=== PATIENT | male | born 1940 | race Caucasian/White ===

== ENCOUNTER → 2016-11-09 | Outpatient (CLI) | payer MEDICARE ==
[2016-11-09 12:38] LABS: PROTHROMBIN TIME 21.9 SEC (11.4-15.4)
== END ==
LOC: OD 11:26
PROVIDERS: ATTEND Internal Medicine
DX: I82.409 Acute embolism and thrombosis of unspecified deep veins of unspecified lower extremity (principal); Z79.01 Long term (current) use of anticoagulants
CPT/HCPCS: 36415; 85610

== ENCOUNTER → 2016-11-24 | Outpatient (CLI) | payer MEDICARE ==
[2016-11-24 10:51] LABS: PROTHROMBIN TIME 27.7 SEC (11.4-15.4)
== END ==
LOC: OD 09:33
PROVIDERS: ATTEND Internal Medicine
DX: I82.409 Acute embolism and thrombosis of unspecified deep veins of unspecified lower extremity (principal); Z79.01 Long term (current) use of anticoagulants
CPT/HCPCS: 36415; 85610

== ENCOUNTER → 2016-12-04 | Outpatient (CLI) | payer MEDICARE ==
[2016-12-04 10:54] LABS: PROTHROMBIN TIME 20.7 SEC (11.4-15.4)
[2016-12-04 11:08] LABS: ANION GAP 12 (5-19); BLOOD UREA NITROGEN 32 mg/dL (7-20); CALCIUM 8.6 mg/dL (8.4-10.2); CARBON DIOXIDE 30 mmol/L (22-30); CHLORIDE 103 mmol/L (98-107); CREATININE RESULT 1.54 mg/dL (0.52-1.25); GLUCOSE 107 mg/dL (75-110); SODIUM 145.4 mmol/L (137-145)
== END ==
LOC: OD 09:40
PROVIDERS: ATTEND Internal Medicine
DX: I82.409 Acute embolism and thrombosis of unspecified deep veins of unspecified lower extremity (principal); Z79.01 Long term (current) use of anticoagulants; E87.6 Hypokalemia
CPT/HCPCS: 36415; 80048; 85610

== ENCOUNTER → 2017-01-01 | Outpatient (CLI) | payer MEDICARE ==
[2017-01-01 15:12] LABS: PROTHROMBIN TIME 26.6 SEC (11.4-15.4)
== END ==
LOC: OD 14:28
PROVIDERS: ATTEND Internal Medicine
DX: I82.409 Acute embolism and thrombosis of unspecified deep veins of unspecified lower extremity (principal); Z79.01 Long term (current) use of anticoagulants
CPT/HCPCS: 36415; 85610

== ENCOUNTER → 2017-03-12 | Outpatient (CLI) | payer MEDICARE ==
[2017-03-12 11:39] LABS: PROTHROMBIN TIME 23.6 SEC (11.4-15.4)
== END ==
LOC: OD 10:05
PROVIDERS: ATTEND Internal Medicine
DX: I82.409 Acute embolism and thrombosis of unspecified deep veins of unspecified lower extremity (principal); Z79.01 Long term (current) use of anticoagulants
CPT/HCPCS: 36415; 85610

== ENCOUNTER 2017-04-27 10:29 | Day surgery (SDC) | payer MEDICARE ==
[~2017-04-27 10:29] MED LIST: BUPIVACAINE HCL 0.75% INJ/PF (7.5 MG/1 ML) 10 ML SDV OS PRN; CHONDR SU A NA/HYALUR INTRAOC KIT (SURGICARE) ONE; KETOROLAC TROMETHAMINE 0.45% 4 DROP/0.4 ML DROPERETTE OS PRN; LIDOCAINE 4% INJ/PF (40 MG/ML) 5 ML AMPUL OS PRN; MIDAZOLAM 2 MG/2 ML INJ ONE; PHENYLEPHRINE/KETOROLAC 1%-0.3% 4 ML VIAL ONE
[2017-04-27] MEDS: TROPICAMIDE 1% OPH SOLN 3 ML OS PRN ×3 (10:44→11:08)
[2017-04-27] MEDS: TETRACAINE HCL 0.5% OPH SOLN 0.6 ML DROPERETTE OS PRN ×2 (10:44→11:08)
[2017-04-27] MEDS: BESIFLOXACIN HCL 0.6% OPH SUSP 5 ML BOTTLE OS PRN ×3 (10:45→11:46)
[2017-04-27] MEDS: CYCLOPENTOLATE 0.2%/PHENYLEPHRINE 1% OPH SOLN 2 ML OS PRN ×3 (10:45→11:08)
[2017-04-27] MEDS ORDERED: ALBUTEROL SULFATE 0.083% NEB 2.5 MG/3 ML AMPUL NEB ONE (11:05)
[2017-04-27] MEDS ORDERED: LIDOCAINE 1% INJ-PF (10 MG/ML) 30 ML SDV ONE (11:55)
--- NOTE | 2017-04-27 12:51 | [facility] OPERATIVE REPORT E ---
[facility] Operative Report NAME: TRUONG PINK AGE: 76Y DATE OF SURGERY: 04/27/2017 ROOM: [facility] Operative Report PREOPERATIVE DIAGNOSIS: CATARACT, LEFT EYE. POSTOPERATIVE DIAGNOSIS: CATARACT, LEFT EYE. PROCEDURE PERFORMED: PHACOEMULSIFICATION WITH POSTERIOR CHAMBER INTRAOCULAR LENS, LEFT EYE. SURGEON: CARSON WHITE MD ANESTHESIA: TOPICAL WITH MAC. INDICATIONS FOR SURGERY: Difficulty driving and reading. Best corrected visual acuity, 20/50, with glare to 20/100 PROCEDURE: The patient was brought to the Operating Room and placed on the operative table. Following tetracaine drops, topical anesthesia was administered. This consisted of instrument wipe pledgets soaked in a solution of 4% Xylocaine mixed with 0.75% Marcaine in a 1:2 ratio. A 2 x 1 cm pledget was placed in the superior fornix. A 1 x 1 cm pledget was placed in the inferior fornix. The eye was patched shut for 5 minutes. The patch was removed. The eye was sterilely prepped and draped in the usual manner. Lid speculum was placed in the eye. The pledgets were removed. 4-0 black silk sutures were placed around the superior and the inferior rectus muscles to be used as traction. A conjunctival peritomy was made at the 10 o'clock position. Hemostasis was obtained with bipolar cautery. A posterior limbal groove was created using a crescent knife and dissected anteriorly towards the cornea. A sharp point blade was used to create a paracentesis site at the 2 o'clock position. A 2.4 mm keratome was used to enter the anterior chamber through the groove. Viscoelastic was injected into the anterior chamber. An anterior capsulotomy was performed using Utrata forceps in a capsulorrhexis fashion. Hydrodissection and hydrodelineation were performed. Phacoemulsification was performed in xmkeak-qaf-apwlshs technique. A total of 45 seconds phaco time was used. Following this, the I/A unit was used to remove residual cortex. Viscoelastic was injected into the capsular bag. Intraocular lens model [id number], 20.0 diopters, serial number [id number] was placed in the capsular bag. The I/A unit was used to remove residual viscoelastic. The wound was seen to be watertight under high and low pressure, and no sutures were placed. The intraocular lens was well centered. The pressure was adjusted in the eye to normal pressure. The 4-0 black silk sutures and lid speculum were removed. The eye was shielded after Besivance drops were placed. The patient tolerated the procedure well and was sent to the Recovery Room in good condition. DICTATING PHYSICIAN: CARSON WHITE M.D. [id number] PHY#: [id number] ID: [id number] JOB#: [id number] ACCT: [id number] cc:CARSON WHITE M.D. > MTDD
[2017-04-27] MEDS ORDERED: ALBUTEROL SULFATE 0.083% NEB 2.5 MG/3 ML AMPUL NEB PRN (13:01)
== END 2017-04-27 12:33 | disposition home or self-care (01) ==
LOC: SC 10:29
PROVIDERS: ATTEND Ophthalmology
PROC: 08RK3JZ Replacement of Left Lens with Synthetic Substitute, Percutaneous Approach (ICD-10-PCS; principal; 2017-04-27 11:30)
DX: H25.812 Combined forms of age-related cataract, left eye (principal); H21.81 Floppy iris syndrome; J44.9 Chronic obstructive pulmonary disease, unspecified; K21.9 Gastro-esophageal reflux disease without esophagitis; E11.9 Type 2 diabetes mellitus without complications; Z88.0 Allergy status to penicillin; Z79.82 Long term (current) use of aspirin; Z79.51 Long term (current) use of inhaled steroids; Z79.4 Long term (current) use of insulin; Z95.0 Presence of cardiac pacemaker; Z99.81 Dependence on supplemental oxygen; Z86.14 Personal history of Methicillin resistant Staphylococcus aureus infection
CPT/HCPCS: 66984; 82962; V2632; J2250; J3490 ×4; A9270 ×2; C9447; 142

== ENCOUNTER → 2017-05-05 | Outpatient (CLI) | payer MEDICARE ==
[2017-05-05 14:58] LABS: ANION GAP 10 (5-19); BLOOD UREA NITROGEN 54 mg/dL (7-20); CALCIUM 9.1 mg/dL (8.4-10.2); CARBON DIOXIDE 36 mmol/L (22-30); CHLORIDE 94 mmol/L (98-107); GLUCOSE 200 mg/dL (75-110); POTASSIUM 3.7 mmol/L (3.6-5.0); SODIUM 140.4 mmol/L (137-145)
== END ==
LOC: OD 13:00
PROVIDERS: ATTEND Internal Medicine
DX: N18.9 Chronic kidney disease, unspecified (principal)
CPT/HCPCS: 36415; 80048

== ENCOUNTER 2017-05-18 09:53 | Day surgery (SDC) | payer MEDICARE ==
[~2017-05-18 09:53] MED LIST changes: +BUPIVACAINE HCL 0.75% INJ/PF (7.5 MG/1 ML) 10 ML SDV OD PRN; -BUPIVACAINE HCL 0.75% INJ/PF (7.5 MG/1 ML) 10 ML SDV OS PRN; -CHONDR SU A NA/HYALUR INTRAOC KIT (SURGICARE) ONE; +KETOROLAC TROMETHAMINE 0.45% 4 DROP/0.4 ML DROPERETTE OD PRN; -KETOROLAC TROMETHAMINE 0.45% 4 DROP/0.4 ML DROPERETTE OS PRN; +LIDOCAINE 4% INJ/PF (40 MG/ML) 5 ML AMPUL OD PRN; -LIDOCAINE 4% INJ/PF (40 MG/ML) 5 ML AMPUL OS PRN; -PHENYLEPHRINE/KETOROLAC 1%-0.3% 4 ML VIAL ONE
[2017-05-18] MEDS ORDERED: ALBUTEROL SULFATE 0.083% NEB 2.5 MG/3 ML AMPUL NEB ONE (11:06)
[2017-05-18] MEDS: CYCLOPENTOLATE 0.2%/PHENYLEPHRINE 1% OPH SOLN 2 ML OD PRN ×3 (11:50→12:22)
[2017-05-18] MEDS: TROPICAMIDE 1% OPH SOLN 3 ML OD PRN ×3 (11:50→12:22)
[2017-05-18] MEDS ORDERED: LIDOCAINE 1% INJ-PF (10 MG/ML) 30 ML SDV ONE (11:52)
[2017-05-18] MEDS ORDERED: CHONDR SU A NA/HYALUR INTRAOC KIT (SURGICARE) ONE (11:52)
[2017-05-18] MEDS ORDERED: PHENYLEPHRINE/KETOROLAC 1%-0.3% 4 ML VIAL ONE (11:52)
[2017-05-18] MEDS: BESIFLOXACIN HCL 0.6% OPH SUSP 5 ML BOTTLE OD PRN ×3 (11:55→13:11)
[2017-05-18] MEDS: LIDOCAINE 3.5% OPH GEL/PF 1 ML/TUBE OD PRN ×2 (11:57→12:31)
--- NOTE | 2017-05-18 15:37 | [facility] DISCHARGE SUMMARY E ---
[facility] Discharge Summary NAME: TRUONG PINK AGE: 76Y ADMITTED: 05/18/2017 DISCHARGED: 05/18/2017 HOSPITAL COURSE: The patient is a 76-year-old gentleman who underwent uneventful cataract extraction with intraocular lens implant of the right eye on 05/18/2017. DISPOSITION: He will be discharged to home. DISCHARGE INSTRUCTIONS: He is instructed to resume preoperative medications, take Tylenol as needed for discomfort, to keep his eye shielded. To use Besivance, Durezol, and Ilevro at 3 p.m. and 8 p.m. Follow up in my office in 1 day. DICTATING PHYSICIAN: CARSON WHITE M.D. [id number] PHY#: [id number] ID: [id number] JOB#: [id number] ACCT: [id number] cc:CARSON WHITE M.D. >
--- NOTE | 2017-05-18 15:37 | [facility] OPERATIVE REPORT E ---
[facility] Operative Report NAME: TRUONG PINK AGE: 76Y DATE OF SURGERY: 05/18/2017 ROOM: PREOPERATIVE DIAGNOSIS: CATARACT, RIGHT EYE. POSTOPERATIVE DIAGNOSIS: CATARACT, RIGHT EYE. PROCEDURE; Phacoemulsification with posterior chamber intraocular lens implant, right eye. SURGEON: CARSON WHITE MD ANESTHESIA: Topical with MAC. INDICATIONS FOR SURGERY: Decreased vision with watching TV. Best-corrected visual acuity 20/70. PROCEDURE: The patient was brought to the operating room and placed on the operative table. Following tetracaine drops, topical anesthesia was administered. This consisted of instrument wipe pledgets soaked in a solution of 4% Xylocaine mixed with 0.75% Marcaine in a 1:2 ratio. A 2 x 1 cm pledget was placed in the superior fornix. A 1 x 1 cm pledget was placed in the inferior fornix. The eye was patched shut for 5 minutes. The patch was removed. The eye was sterilely prepped and draped in the usual manner. Lid speculum was placed in the eye. The pledgets were removed. Then 4-0 black silk sutures were placed around the superior and the inferior rectus muscles to be used as traction. A conjunctival peritomy was made at the 10 o'clock position. Hemostasis was attained with bipolar cautery. A posterior limbal groove was created using a crescent knife and dissected anteriorly towards the cornea. A sharp point blade was used to create a paracentesis site at the 2 o'clock position. A 2.4 mm keratome was used to enter the anterior chamber through the groove. Viscoelastic was injected into the anterior chamber. An anterior capsulotomy was performed using Utrata forceps in a capsulorrhexis fashion. Hydrodissection and hydrodelineation were performed. Phacoemulsification was performed in dksysc-tox-qekwfhb technique. A total of 47 seconds phaco time was used. Following this, the I/A unit was used to remove residual cortex. Viscoelastic was injected into the capsular bag. Intraocular lens model [id number], 20.5 diopters, serial number [id number] was placed in the capsular bag. The I/A unit was used to remove residual viscoelastic. The wound was seen to be watertight under high and low pressure, and no sutures were placed. The intraocular lens was well centered. The pressure was adjusted in the eye to normal pressure. The 4-0 black silk sutures and lid speculum were removed. The eye was shielded after Besivance drops were placed. The patient tolerated the procedure well and was sent to the recovery room in good condition. DICTATING PHYSICIAN: CARSON WHITE M.D. [id number] PHY#: [id number] ID: [id number] JOB#: [id number] ACCT: [id number] cc:CARSON WHITE M.D. >
== END 2017-05-18 14:08 | disposition home or self-care (01) ==
LOC: SC 09:53
PROVIDERS: ATTEND Ophthalmology
PROC: 08RJ3JZ Replacement of Right Lens with Synthetic Substitute, Percutaneous Approach (ICD-10-PCS; principal; 2017-05-18 11:15)
DX: H25.811 Combined forms of age-related cataract, right eye (principal); H21.81 Floppy iris syndrome; Z96.1 Presence of intraocular lens; Z98.42 Cataract extraction status, left eye; J44.9 Chronic obstructive pulmonary disease, unspecified; I25.10 Atherosclerotic heart disease of native coronary artery without angina pectoris; E11.9 Type 2 diabetes mellitus without complications; I73.9 Peripheral vascular disease, unspecified; I11.0 Hypertensive heart disease with heart failure; I50.9 Heart failure, unspecified; K21.9 Gastro-esophageal reflux disease without esophagitis; M10.9 Gout, unspecified; Z79.51 Long term (current) use of inhaled steroids; Z79.82 Long term (current) use of aspirin; Z79.4 Long term (current) use of insulin; Z95.0 Presence of cardiac pacemaker; Z88.0 Allergy status to penicillin; Z88.1 Allergy status to other antibiotic agents; Z89.519 Acquired absence of unspecified leg below knee
CPT/HCPCS: 66984; 82962; V2632; J2250; J3490 ×4; A9270 ×3; C9447; 142

== ENCOUNTER → 2017-05-26 | Outpatient (CLI) | payer MEDICARE ==
[2017-05-26 11:26] LABS: PROTHROMBIN TIME 21.2 SEC (11.4-15.4)
== END ==
LOC: OD 10:57
PROVIDERS: ATTEND Internal Medicine
DX: I82.409 Acute embolism and thrombosis of unspecified deep veins of unspecified lower extremity (principal); Z79.01 Long term (current) use of anticoagulants
CPT/HCPCS: 36415; 85610

== ENCOUNTER 2017-06-10 11:06 | Inpatient (IN) | payer OTHER, MEDICARE ==
--- NOTE | 2017-06-10 11:21 | ER Document Report ---
ED General - General Stated Complaint: SHORTNESS OF BREATH Time Seen by Provider: 06/10/17 11:11 Mode of Arrival: Medic Information source: Patient, Emergency Med Personnel, [facility] Records Cannot obtain history due to: Altered mental status Notes: This 76-year-old male patient is brought emergency room by EMS after having onset at home of generalized shaking and breathing difficulty. EMS reports on arrival he was shaking, had a pulse ox of 80% on room air with diffuse wheezing. They gave him 2 albuterol and Atrovent treatments which improved the breathing and the oxygen saturation quite a bit. He has been running in the 93 % range with 2 L nasal cannula. His shaking has improved but is still present. I does gentleman quite well personally and professionally. He does seem to recognize me but is not nearly as wide awake receptive and excited as he usually is when I see him. He does seem to drift off and close his eyes while we are trying to converse. TRAVEL OUTSIDE OF THE [place] 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 Lives with: Family Family History: CAD, COPD - Past Medical History Cardiac Medical History: Reports: Hx Congestive Heart Failure, Hx Coronary Artery Disease, Hx Heart Attack - x6, Hx Hypercholesterolemia, Hx Hypertension, Hx Peripheral Vascular Disease, Hx Pulmonary Embolism, Other - Patient has about a 5 x 5 x 8 cm abdominal aortic aneurysm Pulmonary Medical History: Reports: Hx Bronchitis, Hx COPD, Hx Sleep Apnea - without c-pap EENT Medical History: Reports: None Neurological Medical History: Reports: None Endocrine Medical History: Reports: Hx Diabetes Mellitus Type 2 Renal/ Medical History: Reports: Hx Benign Prostatic Hyperplasia, Hx Kidney Stones GI Medical History: Reports: None Musculoskeltal Medical History: Reports None Psychiatric Medical History: Reports: None Past Surgical History: Reports: Hx Cardiac Catheterization, Hx Coronary Artery Bypass Graft - quadruple, Hx Coronary Stent, Hx Internal Defibrillator, Hx Orthopedic Surgery - Left BKA, Hx Pacemaker - Immunizations Hx Diphtheria, Pertussis, Tetanus Vaccination: Yes - unknown Hx Pneumococcal Vaccination: 07/04/08 Review of Systems - Review of Systems -: Yes ROS unobtainable due to patient's medical condition Physical Exam - Vital signs Vitals: Temp 104.3 F H 06/10/17 11:25 Interpretation: Febrile - General General appearance: Lethargic In distress: Mild - HEENT Head: Normocephalic, Atraumatic Eyes: Other - Seems somewhat glassy eyed Pupils: PERRL - Respiratory Respiratory status: Tachypnea Chest status: Nontender Breath sounds: Other - No wheezes or rales heard at this time - Cardiovascular Rhythm: Regular Heart sounds: Normal auscultation Murmur: No - Abdominal Inspection: Obese Bowel sounds: Normal Tenderness: Nontender - Back Back: Normal - Patient has a horny skin exostosis in the left scapular region - Extremities General upper extremity: Normal inspection General lower extremity: Other - Left BKA. Right lower extremity edema with bandaged wounds. - Neurological Neuro grossly intact: Yes - Psychological Associated symptoms: Other - Patient is somewhat lethargic - Skin Skin Temperature: Hot Skin Moisture: Dry - Abnormally dry given how warm he feels Skin Color: Flushed Course - Re-evaluation Re-evalutation: 06/10/17 14:09 The patient's temperature is now down from 104.5 to about 1-2.5, he is much more alert. He reports he does feel very weak but he does feel better. His initial blood pressure was recorded as 177/74. EMS reported blood pressure of 144 over palpable. His next blood pressure recorded was 84 systolic and at this time it is 79 systolic. We will give him a small saline bolus and see how that does with his blood pressure. 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 - Vital Signs Vital signs: Temp Pulse Resp BP Pulse Ox 104.3 F H 23 H 100/53 L 95 06/10/17 11:25 06/10/17 16:01 06/10/17 16:01 06/10/17 16:01 - Laboratory Result Diagrams: 06/10/17 12:07 06/10/17 12:07 Laboratory results interpreted by me: 06/10/17 06/10/17 06/10/17 11:50 12:07 12:07 RDW 21.0 H Plt Count 72 L Seg Neuts % (Manual) 86 H Lymphocytes % (Manual) 5 L PT VBG HCO3 Carbon Dioxide 33 H BUN 45 H Creatinine 1.62 H Est GFR ( Amer) 50 L Est GFR (Non-Af Amer) 41 L Glucose 262 H Lactic Acid Direct Bilirubin 0.6 H ALT 19 L Creatine Kinase 31 L Albumin 3.4 L Urine Protein 100 H Urine Blood SMALL H 06/10/17 06/10/17 06/10/17 12:07 12:07 12:07 RDW Plt Count Seg Neuts % (Manual) Lymphocytes % (Manual) PT 21.0 H VBG HCO3 34.9 H Carbon Dioxide BUN Creatinine Est GFR ( Amer) Est GFR (Non-Af Amer) Glucose Lactic Acid 2.2 H Direct Bilirubin ALT Creatine Kinase Albumin Urine Protein Urine Blood - Diagnostic Test Radiology reviewed: Image reviewed, Reports reviewed - Borderline cardiomegaly with mild pulmonary vascular congestion and chronic interstitial changes - EKG Interpretation by Me EKG shows normal: Sinus rhythm, Jeffrey, Intervals, ST-T Waves. abnormal: QRS Complexes - Old inferior infarct Rate: Normal - 91 Rhythm: NSR Jeffrey/QRS: IVCD P Waves: LAE - Consults Dr. Mota Time consulted: 14:20 Consulted provider: will come to ER Critical Care Note - Critical Care Note Total time excluding time spent on procedures (mins): 40 Discharge - Discharge Clinical Impression: Hypoxemia Sepsis Qualifiers: Sepsis type: sepsis due to unspecified organism Qualified Code(s): A41.9 - Sepsis, unspecified organism Fever Qualifiers: Fever type: unspecified Qualified Code(s): R50.9 - Fever, unspecified Hypotension Qualifiers: Hypotension type: other hypotension type Qualified Code(s): I95.89 - Other hypotension DM type 2 (diabetes mellitus, type 2) Qualifiers: Diabetes mellitus complication status: with circulatory complication Diabetes mellitus complication detail: with peripheral angiopathy without gangrene Diabetes mellitus longterm insulin use: with longterm use Qualified Code(s): E11.51 - Type 2 diabetes mellitus with diabetic peripheral angiopathy without gangrene; Z79.4 - intermediate (current) use of insulin COPD (chronic obstructive pulmonary disease) Qualifiers: COPD type: COPD with acute exacerbation Qualified Code(s): J44.1 - Chronic obstructive pulmonary disease with (acute) exacerbation Condition: Fair Disposition: ADMITTED INPATIENT Admitting Provider: Hospitalist Unit Admitted: [facility]
[2017-06-10] MEDS ORDERED: ACETAMINOPHEN 650 MG SUPP.RECT PR ONE (11:28)
[2017-06-10 12:22] LABS: VENOUS BLOOD HCO3 34.9 mmol/L (20-32); VENOUS BLOOD PCO2 57.8 mmHg (35-63); VENOUS BLOOD PH 7.4 (7.30-7.42)
[2017-06-10 12:32] LABS: HEMATOCRIT 42.1 % (37.9-51.0); HEMOGLOBIN 13.6 g/dL (13.5-17.0); HGB HCT DIFFERENCE -1.3; MEAN CORPUSCULAR HEMOGLOBIN 29.2 pg (27.0-33.4); MEAN CORPUSCULAR HGB CONC 32.4 g/dL (32.0-36.0); MEAN CORPUSCULAR VOLUME 90 fl (80-97); RED BLOOD COUNT 4.67 10^6/uL (4.35-5.55)
[2017-06-10 12:36] LABS: APPEARANCE,URINE CLEAR; BILIRUBIN,URINE NEGATIVE (NEGATIVE); GLUCOSE, URINE NEGATIVE (NEGATIVE); KETONES,URINE NEGATIVE (NEGATIVE); LEUKOCYTE ESTERASE,URINE NEGATIVE (NEGATIVE); NITRITE,URINE NEGATIVE (NEGATIVE); PROTEIN,URINE 100 mg/dL (NEGATIVE); URINE SPECIFIC GRAVITY 1.008; UROBILINOGEN,URINE NEGATIVE mg/dL (<2.0)
[2017-06-10 12:50] LABS: ANISOCYTOSIS 3+; BASOPHILS % (MANUAL) 0 % (0-2); EOSINOPHILS % (MANUAL) 0 % (0-6); HYPOCHROMASIA SLIGHT; LYMPHOCYTES % (MANUAL) 5 % (13-45); POLYCHROMASIA SLIGHT; STOMATOCYTES 1+; TOTAL CELLS COUNTED 100; TOXIC GRANULATION SLIGHT; TOXIC VACUOLATION PRESENT
[2017-06-10 12:51] LABS: CREATINE KINASE MB 0.59 ng/mL (<4.55)
[2017-06-10 12:55] LABS: TROPONIN I 0.038 ng/mL
--- NOTE | 2017-06-10 13:00 | RADIOLOGY REPORT (SQ) ---
EXAM DESCRIPTION: CHEST SINGLE VIEW COMPLETED DATE/TIME: 06/10/2017 12:38 pm REASON FOR STUDY: bed 9 db COMPARISON: 08/24/2016 EXAM PARAMETERS: NUMBER OF VIEWS: One view. TECHNIQUE: Single frontal radiographic view of the chest acquired. RADIATION DOSE: NA LIMITATIONS: None. FINDINGS: LUNGS AND PLEURA: Chronic interstitial lung changes are present. There is no infiltrate o r effusion. MEDIASTINUM AND HILAR STRUCTURES: No masses. Contour normal. HEART AND VASCULAR STRUCTURES: Borderline heart size. Mild pulmonary vascular congestion. No pulmon catie edema. BONES: No acute findings. HARDWARE: Sternotomy wires, graft markers, pacemaker/ defibrillator. OTHER: No other significant finding. IMPRESSION: Borderline cardiomegaly with pulmonary vascular congestion but no melinda CHF. Chronic deon ng changes. TECHNICAL DOCUMENTATION: JOB ID: [id number]
[2017-06-10 13:51] LABS: ALANINE AMINOTRANSFERASE 19 U/L (21-72); ALBUMIN 3.4 g/dL (3.5-5.0); ALKALINE PHOSPHATASE 124 U/L (38-126); ANION GAP 10 (5-19); ASPARTATE AMINO TRANSFERASE 26 U/L (17-59); BILIRUBIN,DIRECT 0.6 mg/dL (0.0-0.4); BLOOD UREA NITROGEN 45 mg/dL (7-20); CALCIUM 8.9 mg/dL (8.4-10.2); CARBON DIOXIDE 33 mmol/L (22-30); CHLORIDE 100 mmol/L (98-107); CREATINE KINASE 31 U/L (55-170); CREATININE RESULT 1.62 mg/dL (0.52-1.25); GLUCOSE 262 mg/dL (75-110); POTASSIUM 4.3 mmol/L (3.6-5.0); TOTAL PROTEIN 6.3 g/dL (6.3-8.2)
--- NOTE | 2017-06-10 13:51 | EKG REPORT ---
SEVERITY:- ABNORMAL ECG - SINUS RHYTHM PROBABLE LEFT ATRIAL ABNORMALITY NONSPECIFIC INTRAVENTRICULAR CONDUCTION DELAY INFERIOR INFARCT, OLD CONSIDER ANTERIOR INFARCT : Confirmed by: Rosalio Lawrence MD 10-Jun-2017 13:50:47
[2017-06-10] MEDS ORDERED: NORMAL SALINE 1000 ML 250 ML IV ONE (14:00)
[2017-06-10] MEDS ORDERED: CEFTRIAXONE 1 GM/D5W RTU 1 GM/50 ML RTUPB IV ONE (15:00)
[2017-06-10] MEDS ORDERED: ONDANSETRON 4 MG TAB.RAPDIS PO PRN (15:26)
[2017-06-10] MEDS ORDERED: ACETAMINOPHEN 325 MG TABLET PO PRN (15:26)
[2017-06-10] MEDS ORDERED: IMIPENEM/CILASTATIN SODIUM 1,000 MG in NORMAL SALINE 250 ML IV SCH (16:30)
[2017-06-10] MEDS ORDERED: (PENDING PHARMACY ID) (Albuterol Sulfate [Proair Respiclick] 90 MCG) IH PRN (16:34)
[2017-06-10] MEDS ORDERED: BESIFLOXACIN HCL 0.6% OPH SUSP 5 ML BOTTLE OP SCH (16:45)
[2017-06-10] MEDS: OXYCODONE-ACETAMINOPHEN 5-325 MG TABLET PO PRN ×2 (16:47→23:33)
[2017-06-10] MEDS ORDERED: DEXTROSE 40% GEL 15 GM TUBE PO PRN ×2 (16:57)
[2017-06-10] MEDS ORDERED: GLUCAGON,HUMAN RECOMB 1 MG INJ IM PRN (16:57)
[2017-06-10] MEDS ORDERED: DEXTROSE 50%-WATER 25 GM/50 ML DISP.SYRIN IV PRN ×2 (16:57)
--- NOTE | 2017-06-10 17:08 | RADIOLOGY REPORT (SQ) ---
EXAM DESCRIPTION: CT CHEST WITHOUT; CT ABD/PELVIS NO ORAL OR IV COMPLETED DATE/TIME: 06/10/2017 4:25 pm REASON FOR STUDY: FEVER; Fever COMPARISON: None. TECHNIQUE: CT scan of the chest performed without intravenous contrast using helical scanning techni que. Images reviewed with lung, soft tissue and bone windows. Reconstructed coronal and sagittal MPR images reviewed. All images stored on PACS. CT scan of the abdomen and pelvis performed without intravenous contrast and withoutoral contrast usi ng helical scanning technique with dynamic intravenous contrast injection. Images reviewed with lung , soft tissue and bone windows. Reconstructed coronal and sagittal MPR images reviewed. All images stored on PACS. All CT scanners at this facility use dose modulation, iterative reconstruction, and/or weight based d osing when appropriate to reduce radiation dose to as low as reasonably achievable (ALARA). [facility]: Dose Right [facility]: CareDose [facility]: Dose Right [facility]: Teradose 4D [facility]: Smart Technologies RADIATION DOSE: Up-to-date CT equipment and radiation dose reduction techniques were employed. CTDIv ol: 17.6 mGy. DLP: 1304 mGy-cm. mGy. LIMITATIONS: No technical limitations. FINDINGS: CHEST: AXILLAE: No adenopathy. CHEST WALL: No masses. No subcutaneous air. LUNGS: Multiple calcified granulomas are present in the right lung including a 10 mm calcified granul juarez posterior right lower lobe axial image 33, 3 mm calcified granuloma medial right upper lobe image 20, 6 mm calcified granuloma medial right upper lobe image 21, and a 9 mm calcified subpleural granu shantell medial right lower lobe image 14. There is bandlike atelectasis at the left lung base. No fluffy alveolar infiltrates worrisome for edema or pneumonia. PLEURA: Calcified pleural plaques along the left hemidiaphragm with adjacent lung parenchymal scarrin g. No pleural effusions. THYROID: No masses or significant asymmetry. HILAR AND MEDIASTINAL STRUCTURES: No identified masses or abnormal nodes. AORTA AND GREAT VESSELS: No aneurysm. HEART: Moderate cardiomegaly. Heavily calcified [place] coronary arteries with old sternotomy and CAB G. Left-sided dual lead pacemaker. HARDWARE AND LIFELINES: Left-sided dual lead pacemaker BONES: No significant finding. OTHER: No other significant finding. ABDOMEN AND PELVIS: LIVER: Normal size. No masses. No dilated ducts. SPLEEN: Normal size. 1.7 cm splenic cyst. PANCREAS: No masses. No significant calcifications. No adjacent inflammation or peripancreatic flui d collections. Pancreatic duct not dilated. GALLBLADDER: Calcified stones without gallbladder wall thickening or pericholecystic fluid. ADRENAL GLANDS: No significant masses or asymmetry. RIGHT KIDNEY AND URETER: No solid masses. Assessment limited by lack of IV contrast. 5 mm intrarenal nonobstructive midpole and lower pole kidney stones. No hydronephrosis or hydroureter. LEFT KIDNEY AND URETER: No solid masses. Assessment limited by lack of IV contrast. 5 mm left lower pole intrarenal nonobstructive stone. No hydronephrosis or hydroureter. AORTA AND VESSELS: Unruptured 5.5 x 4.9 cm infrarenal abdominal aortic aneurysm (was 4.5 x 4.9 cm in size on 02/04/2011). 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 3 cm diameter on 02/04/2011). Left common iliac artery 3.4 cm aneurysm (was 2.4 cm diameter on 1). RETROPERITONEUM: No retroperitoneal adenopathy, hemorrhage or masses. APPENDIX: Normal. LARGE AND SMALL BOWEL: No dilatation. No masses. No wall thickening. ABDOMINAL WALL: No hernia or masses. PERITONEAL CAVITY: No free air. No free fluid. No peritoneal implants or masses. PELVIS: No mass or free fluid. Ang catheter drains the bladder. BONES: No significant or acute findings. OTHER: No other significant finding. IMPRESSION: No acute infiltrates in the chest. No acute findings in the abdomen or pelvis Unruptured 5.5 x 4.9 cm infrarenal abdominal aortic aneurysm, 2.9 cm right proximal common iliac al ry aneurysm, and 3.4 cm the left proximal common iliac artery aneurysm. TECHNICAL DOCUMENTATION: JOB ID: [id number] Quality ID # [id number]: Final reports with documentation of one or more dose reduction techniques (e.g., Au tomated exposure control, adjustment of the mA and/or kV according to patient size, use of iterative reconstruction technique) 2010 [facility]- All Rights Reserved
[2017-06-10] MEDS: DOCUSATE SODIUM 100 MG CAPSULE PO SCH (17:19)
[2017-06-10] MEDS: INSULIN LISPRO 100 UNIT/ML 3 ML VIAL SUBCUT PRN ×2 (17:20→22:57)
--- NOTE | 2017-06-10 17:23 | PDOC H&P ---
History of Present Illness Admission Date/PCP: 06/10/2017 Patient complains of: Shaking History of Present Illness: TRUONG PINK is a 76 year old male with complaint of shaking. Patient states that he began shaking early this morning. Patient's states that she touched her and felt that he was very hot. states the patient complained of having chills earlier that morning. states that patient's shaking became so severe that he was not able to stand. states that he broke out in a cold sweat during this episode. reports that this occurred about 10 AM today. States that patient has been coughing more than normal. describes cough as being somewhat red in nature patient denies any diarrhea. states that patient normally has high blood pressure. ER called the hospitals office asking for admission during signout the ER physician stated that patient appeared somewhat confused states his temperature was 104.5 patient was given Tylenol and the temperature was 102.5 ER physician also noted the patient was hypotensive. During my encounter with patient patient denied any neck pain any photosensitivity denied any rash. Also denied any sick contacts. Past Medical History Cardiac Medical History: Reports: Congestive Heart Failure, Coronary Artery Disease, Myocardial Infarction - x6, Hyperlipidema, Hypertension, Peripheral Vascular Disease, Pulmonary Embolism, Other - Patient has about a 5 x 5 x 8 cm abdominal aortic aneurysm Denies: Atrial Fibrillation Pulmonary Medical History: Reports: Bronchitis, Chronic Obstructive Pulmonary Disease (COPD), Sleep Apnea - without c-pap Denies: Asthma, Pneumonia, Respiratory Failure, Tuberculosis EENT Medical History: Reports: None Neurological Medical History: Reports: None Denies: Seizures Endocrine Medical History: Reports: Diabetes Mellitus Type 2 Denies: Hyperthyroidism, Hypothyroidism Renal/ Medical History: Denies: End Stage Renal Disease Malignancy Medical History: Denies: Leukemia, Lung Cancer GI Medical History: Reports: None Denies: Hepatitis, Hiatal Hernia Musculoskeltal Medical History: Reports: None Denies: Arthritis, Fibromyalgia Psychiatric Medical History: Reports: None Denies: Dementia, Depression Hematology: Denies: Anemia, Hemophilia, Sickle Cell Disease Infectious Medical History: Denies: HIV Past Surgical History Past Surgical History: Reports: Cardiac Catheterization, Coronary Artery Bypass Graft - quadruple, Coronary Stent, Internal Defibrillator, Orthopedic Surgery - Left BKA, Pacemaker Denies: Appendectomy, Cholecystectomy, Gastric Bypass Surgery, Herniorrhaphy , Tonsillectomy Social History Lives with: Family Smoking Status: Unknown if Ever Smoked Frequency of Alcohol Use: None Hx Recreational Drug Use: No Drugs: None Hx Prescription Drug Abuse: No Family History Family History: CAD, COPD Parental Family History Reviewed: Yes Children Family History Reviewed: Yes Sibling(s) Family History Reviewed.: Yes Medication/Allergy Home Medications: Albuterol Sulfate [Proair Respiclick] 90 mcg IH Q4H PRN 04/20/17 Allopurinol [Zyloprim] 150 mg PO DAILY 04/20/17 Aspirin [Aspirin EC] 81 mg PO DAILY 04/20/17 Atorvastatin Calcium [Lipitor 80 mg Tablet] 80 mg PO QHS 04/20/17 Besifloxacin HCl [Besivance Drops] 1 drop OP ASDIR 04/20/17 Budesonide/Formoterol Fumarate [Symbicort Hfa 160-4.5 Mcg Inhaler 6 gm] 2 puff IH Q12 04/20/17 Bumetanide [Bumex 2 mg Tablet] 1 tab PO BID 04/20/17 Cholecalciferol (Vitamin D3) [Vitamin D3] 400 unit PO DAILY 04/20/17 Cyanocobalamin (Vitamin B-12) [Vitamin B12] 3,000 mcg PO DAILY 04/20/17 Difluprednate [Durezol] 1 drop OP ASDIR 04/20/17 Docusate Sodium [Colace 100 mg Capsule] 100 mg PO BID 04/20/17 Finasteride [Proscar 5 mg Tablet] 5 mg PO DAILY 04/20/17 Hydrocodone/Acetaminophen [Keene 10-325 Tablet] 1 each PO ASDIR PRN 04/20/17 Insulin Glargine,Hum.rec.anlog [Lantus] 10 unit SQ QHS 04/20/17 Isosorbide Mononitrate [Isosorbide Mononitrate ER] 30 mg PO DAILY 04/20/17 Magnesium Oxide 400 mg PO BID 04/20/17 Metolazone 2.5 mg PO .M,W,F 04/20/17 Metoprolol Succinate [Toprol Xl] 50 mg PO DAILY 04/20/17 Nepafenac [Ilevro] 1 drop OP ASDIR 04/20/17 Nitroglycerin [Nitrostat] 0.4 mg SL ASDIR PRN 04/20/17 Omeprazole Magnesium [Prilosec Otc] 20 mg PO QAM 04/20/17 Pregabalin [Lyrica 100 Mg Capsule] 150 mg PO BID 04/20/17 Ranolazine [Ranexa 500 mg Tab.sr] 500 mg PO Q12 05/18/17 Allergies/Adverse Reactions: Penicillins Allergy (Unknown, Verified 05/17/17 10:40) vancomycin [Vancomycin] Adverse Reaction (Verified 08/24/16 13:13) Review of Systems Constitutional: PRESENT: chills, fever(s), weakness Eyes: ABSENT: visual disturbances Ears: ABSENT: hearing changes Nose, Mouth, and Throat: PRESENT: other - Dry mouth Cardiovascular: ABSENT: as per HPI, chest pain, dyspnea on exertion, edema, orthropnea, palpitations, other Respiratory: PRESENT: cough, dyspnea, sputum Gastrointestinal: ABSENT: abdominal pain, constipation, diarrhea, hematemesis, hematochezia, nausea, vomiting Genitourinary: ABSENT: dysuria, hematuria Musculoskeletal: PRESENT: other - left bka pain Integumentary: PRESENT: other - left leg wound with drainage Neurological: PRESENT: tremor(s), weakness Psychiatric: ABSENT: anxiety, depression, homidical ideation, suicidal ideation Endocrine: ABSENT: cold intolerance, heat intolerance, polydipsia, polyuria Hematologic/Lymphatic: ABSENT: easy bleeding, easy bruising Physical Exam Vital Signs: Temp Pulse Resp BP Pulse Ox 104.3 F H 20 96/46 L 95 06/10/17 11:25 06/10/17 15:00 06/10/17 15:00 06/10/17 15:00 Intake & Output 06/09/17 06/10/17 06/11/17 06:59 06:59 06:59 Weight 95.254 kg General appearance: PRESENT: no acute distress, morbidly obese Head exam: PRESENT: atraumatic, normocephalic Eye exam: PRESENT: conjunctiva pink, EOMI, PERRLA. ABSENT: scleral icterus Ear exam: PRESENT: normal external ear exam Mouth exam: PRESENT: moist, tongue midline Neck exam: ABSENT: carotid bruit, JVD, lymphadenopathy, thyromegaly Respiratory exam: PRESENT: rhonchi - + wheezing,, wheezes. ABSENT: rales Cardiovascular exam: PRESENT: RRR, +S1, +S2 Pulses: PRESENT: normal dorsalis pedis pul GI/Abdominal exam: PRESENT: normal bowel sounds, soft. ABSENT: distended, guarding, mass, organolmegaly, rebound, tenderness Rectal exam: PRESENT: deferred Extremities exam: PRESENT: full ROM. ABSENT: calf tenderness - left BKA with prosthetic in place., clubbing, pedal edema Musculoskeletal exam: PRESENT: full ROM, other - left BKA with prosthetic in place Neurological exam: PRESENT: alert, awake, oriented to person, oriented to place , oriented to time, oriented to situation, CN II-XII grossly intact, other - No cervical tenderness, No photophobia. ABSENT: motor sensory deficit Psychiatric exam: PRESENT: appropriate affect, normal mood. ABSENT: homicidal ideation, suicidal ideation Skin exam: PRESENT: dry, warm, other - Right lower ext with + drainage from wound with odor. Results Laboratory Results: 06/10/17 12:07 06/10/17 12:07 06/10/17 06/10/17 06/10/17 11:50 12:07 12:07 WBC 8.0 RBC 4.67 Hgb 13.6 Hct 42.1 MCV 90 MCH 29.2 MCHC 32.4 RDW 21.0 H Plt Count 72 L Seg Neutrophils % Not Reportable Lymphocytes % Not Reportable Monocytes % Not Reportable Eosinophils % Not Reportable Basophils % Not Reportable Absolute Neutrophils Not Reportable Absolute Lymphocytes Not Reportable Absolute Monocytes Not Reportable Absolute Eosinophils Not Reportable Absolute Basophils Not Reportable VBG pH VBG pCO2 VBG HCO3 VBG Base Excess Sodium 143.0 Potassium 4.3 Chloride 100 Carbon Dioxide 33 H Anion Gap 10 BUN 45 H Creatinine 1.62 H Est GFR ( Amer) 50 L Est GFR (Non-Af Amer) 41 L Glucose 262 H Lactic Acid Calcium 8.9 Total Bilirubin 1.0 AST 26 ALT 19 L Alkaline Phosphatase 124 Total Protein 6.3 Albumin 3.4 L Urine Color YELLOW Urine Appearance CLEAR Urine pH 5.0 Ur Specific [place] 1.008 Urine Protein 100 H Urine Glucose (UA) NEGATIVE Urine Ketones NEGATIVE Urine Blood SMALL H Urine Nitrite NEGATIVE Ur Leukocyte Esterase NEGATIVE Urine WBC (Auto) 9 Urine RBC (Auto) 6 06/10/17 06/10/17 12:07 12:07 WBC RBC Hgb Hct MCV MCH MCHC RDW Plt Count Seg Neutrophils % Lymphocytes % Monocytes % Eosinophils % Basophils % Absolute Neutrophils Absolute Lymphocytes Absolute Monocytes Absolute Eosinophils Absolute Basophils VBG pH 7.40 VBG pCO2 57.8 VBG HCO3 34.9 H VBG Base Excess 8.0 Sodium Potassium Chloride Carbon Dioxide Anion Gap BUN Creatinine Est GFR ( Amer) Est GFR (Non-Af Amer) Glucose Lactic Acid 2.2 H Calcium Total Bilirubin AST ALT Alkaline Phosphatase Total Protein Albumin Urine Color Urine Appearance Urine pH Ur Specific [place] Urine Protein Urine Glucose (UA) Urine Ketones Urine Blood Urine Nitrite Ur Leukocyte Esterase Urine WBC (Auto) Urine RBC (Auto) 06/10/17 06/10/17 12:07 12:07 Creatine Kinase 31 L CK-MB (CK-2) 0.59 Troponin I 0.038 Impressions: Chest X-Ray 06/10/17 11:09 IMPRESSION: Borderline cardiomegaly with pulmonary vascular congestion but no melinda CHF. Chronic lung changes. Assessment & Plan - Diagnosis (1) Sepsis Qualifiers: Sepsis type: sepsis due to unspecified organism Qualified Code(s): A41.9 - Sepsis, unspecified organism Is this a current diagnosis for this admission?: Yes Plan: Patient febrile, hypotensive, and altered mental status: We will place patient on imipenem and clindamycin. Concerned that patient's source of infection could possibly be right lower leg wound. Other etiologies would be viral illness. In the meantime will do CT of chest and abdomen without contrast to look for any additional abnormalities. (2) Hypotension Qualifiers: Hypotension type: other hypotension type Qualified Code(s): I95.89 - Other hypotension Is this a current diagnosis for this admission?: Yes Plan: Compared to sepsis: We will hold patient's blood pressure medications. Pt was given IVF in the ER. Will not give additional fluid unless needed. (3) Fever Qualifiers: Fever type: unspecified Qualified Code(s): R50.9 - Fever, unspecified Is this a current diagnosis for this admission?: Yes Plan: Blood cultures, viral studies, wound culture, and urine culture ordered. Viral studies are limited due to facilities order availability. Fever could be secondary to cellulitis versus viral illness. CT of abdomen and chest ordered (4) Cellulitis of right lower extremity Is this a current diagnosis for this admission?: Yes Plan: We will place patient on imipenem and clindamycin. Vancomycin not used due to been reported as an allergy. (5) DM type 2 (diabetes mellitus, type 2) Qualifiers: Diabetes mellitus complication status: with circulatory complication Is this a current diagnosis for this admission?: Yes Plan: Place patient on sliding scale insulin and long-acting insulin 10 units (6) Chronic diastolic heart failure Is this a current diagnosis for this admission?: Yes Plan: We will monitor patient closely. Patient's chest x-ray demonstrating cardiomegaly with vascular congestion. Due to patient being septic with low blood pressure will try holding off on diuresing patient. (7) Chronic kidney disease, stage 3 Plan: We will monitor renal function closely (8) Acute respiratory failure with hypoxia Is this a current diagnosis for this admission?: Yes Plan: Secondary to mild COPD exacerbation and sepsis: Patient given breathing treatments in the emergency room. We will continue with breathing treatments as needed. (9) COPD (chronic obstructive pulmonary disease) Qualifiers: COPD type: COPD with acute exacerbation Qualified Code(s): J44.1 - Chronic obstructive pulmonary disease with (acute) exacerbation Is this a current diagnosis for this admission?: Yes Plan: Mild COPD exacerbation: We will continue breathing treatment. (10) Hypoxemia Is this a current diagnosis for this admission?: Yes Plan: We will continue nasal cannula (11) History of pulmonary embolus (PE) Is this a current diagnosis for this admission?: Yes Plan: We will place patient on Lovenox due to subtherapeutic INR. Will restart patient's warfarin (12) Hyperlipidemia Qualifiers: Hyperlipidemia type: unspecified Qualified Code(s): E78.5 - Hyperlipidemia , unspecified Is this a current diagnosis for this admission?: Yes Plan: Continue statin (13) Subtherapeutic anticoagulation Is this a current diagnosis for this admission?: Yes Plan: We will place patient on Lovenox and resume patient's warfarin at 3 mg p.o. daily - Time Time Spent: 30 to 50 Minutes
[2017-06-10] MEDS: IMIPENEM/CILASTATIN SODIUM 500 MG in NORMAL SALINE 100 ML IV SCH (17:44)
[2017-06-10] MEDS: MORPHINE SULFATE 10 MG/ML INJ IV PRN (22:22)
[2017-06-10] MEDS: BUDESONIDE/FORMOTEROL 160-4.5 MCG 60 PUFF/6 GM MDI IH SCH (22:57)
[2017-06-10] MEDS: ATORVASTATIN CALCIUM 80 MG TABLET PO SCH (22:57)
[2017-06-10] MEDS: WARFARIN SODIUM 3 MG TABLET PO SCH (22:58)
[2017-06-10] MEDS: PREGABALIN 75 MG CAPSULE PO SCH (22:58)
[2017-06-11] MEDS: IMIPENEM/CILASTATIN SODIUM 500 MG in NORMAL SALINE 100 ML IV SCH ×4 (00:15→18:00)
[2017-06-11 05:32] LABS: PROTHROMBIN TIME 20.2 SEC (11.4-15.4)
[2017-06-11 05:45] LABS: ALANINE AMINOTRANSFERASE 24 U/L (21-72); ALBUMIN 2.9 g/dL (3.5-5.0); ALKALINE PHOSPHATASE 95 U/L (38-126); ANION GAP 8 (5-19); ASPARTATE AMINO TRANSFERASE 22 U/L (17-59); BILIRUBIN,DIRECT 0.5 mg/dL (0.0-0.4); BILIRUBIN,TOTAL 0.8 mg/dL (0.2-1.3); BLOOD UREA NITROGEN 49 mg/dL (7-20); CALCIUM 8.3 mg/dL (8.4-10.2); CARBON DIOXIDE 32 mmol/L (22-30); CHLORIDE 98 mmol/L (98-107); CREATININE RESULT 1.88 mg/dL (0.52-1.25); GLUCOSE 133 mg/dL (75-110); POTASSIUM 3.7 mmol/L (3.6-5.0); SODIUM 137.8 mmol/L (137-145); TOTAL PROTEIN 5.6 g/dL (6.3-8.2)
[2017-06-11 06:03] LABS: HEMATOCRIT 37.9 % (37.9-51.0); HEMOGLOBIN 12.3 g/dL (13.5-17.0); MEAN CORPUSCULAR HEMOGLOBIN 29.2 pg (27.0-33.4); MEAN CORPUSCULAR HGB CONC 32.5 g/dL (32.0-36.0); MEAN CORPUSCULAR VOLUME 90 fl (80-97); RED BLOOD COUNT 4.23 10^6/uL (4.35-5.55); RED CELL DISTRIBUTION WIDTH 20.5 % (11.5-14.0)
[2017-06-11 06:09] LABS: BASOPHILS % (MANUAL) 0 % (0-2); EOSINOPHILS % (MANUAL) 0 % (0-6); LYMPHOCYTES % (MANUAL) 2 % (13-45); TOTAL CELLS COUNTED 100
[2017-06-11 06:12] LABS: ANISOCYTOSIS 2+; HYPOCHROMASIA SLIGHT; OVALOCYTES SLIGHT; POIKILOCYTOSIS SLIGHT; POLYCHROMASIA SLIGHT; TOXIC GRANULATION SLIGHT
[2017-06-11] MEDS: OXYCODONE-ACETAMINOPHEN 5-325 MG TABLET PO PRN ×3 (06:33→23:16)
[2017-06-11] MEDS: INSULIN LISPRO 100 UNIT/ML 3 ML VIAL SUBCUT PRN ×3 (07:46→18:01)
[2017-06-11] MEDS: IPRATROPIUM/ALBUTEROL 0.5-2.5 MG/3 ML AMPUL NEB PRN (09:02)
[2017-06-11] MEDS: METOPROLOL SUCCINATE 50 MG TAB.SR.24H PO SCH (09:49)
[2017-06-11] MEDS: PREGABALIN 75 MG CAPSULE PO SCH ×2 (09:49→22:58)
[2017-06-11] MEDS: FINASTERIDE 5 MG TABLET PO SCH (09:49)
[2017-06-11] MEDS: DOCUSATE SODIUM 100 MG CAPSULE PO SCH ×2 (09:49→18:00)
[2017-06-11] MEDS: ALLOPURINOL 300 MG TABLET PO SCH (09:50)
[2017-06-11] MEDS: BUDESONIDE/FORMOTEROL 160-4.5 MCG 60 PUFF/6 GM MDI IH SCH ×2 (09:50→22:57)
[2017-06-11] MEDS ORDERED: INSULIN GLARGINE,HUM.REC.ANLOG 300 UNIT/3 ML INSULN.PEN SUBCUT SCH (10:00)
[2017-06-11] MEDS ORDERED: ENOXAPARIN SODIUM INJ 40 MG/0.4 ML DISP.SYRIN SUBCUT SCH (10:00)
[2017-06-11] MEDS: POLYETHYLENE GLYCOL 3350 POWDER 17 GM/1 PACKET PO SCH (10:01)
[2017-06-11] MEDS: MORPHINE SULFATE 10 MG/ML INJ IV PRN (13:51)
[2017-06-11] MEDS: CLINDAMYCIN 600 MG/D5W RTU 600 MG/50 ML RTUPB IV SCH ×2 (13:51→22:57)
--- NOTE | 2017-06-11 13:57 | PDOC PROGRESS REPORT ---
Subjective Progress Note for:: 06/11/17 Subjective:: Pt states that he feel much better today. Pt states that he is not shaking as much. Micro called this morning to report that pt has GBS in blood culture. Physical Exam Vital Signs: Temp Pulse Resp BP Pulse Ox 98.2 F 60 18 124/49 L 95 06/11/17 11:13 06/11/17 11:13 06/11/17 11:13 06/11/17 11:13 06/11/17 11:13 Intake & Output 06/10/17 06/11/17 06/12/17 06:59 06:59 06:59 Intake Total 265 Output Total 350 Balance -85 Weight 100.4 kg General appearance: PRESENT: no acute distress, well-developed, well-nourished Head exam: PRESENT: atraumatic, normocephalic Eye exam: PRESENT: conjunctival injection Ear exam: PRESENT: bleeding Mouth exam: PRESENT: moist, tongue midline Neck exam: ABSENT: carotid bruit, JVD, lymphadenopathy, thyromegaly Respiratory exam: PRESENT: clear to auscultation dipti. ABSENT: rales, rhonchi, wheezes Cardiovascular exam: PRESENT: RRR. ABSENT: diastolic murmur, rubs, systolic murmur Pulses: PRESENT: normal dorsalis pedis pul Vascular exam: PRESENT: normal capillary refill GI/Abdominal exam: PRESENT: normal bowel sounds, soft. ABSENT: distended, guarding, mass, organolmegaly, rebound, tenderness Rectal exam: PRESENT: deferred Extremities exam: PRESENT: full ROM. ABSENT: calf tenderness, clubbing, pedal edema Neurological exam: PRESENT: alert, awake, oriented to person, oriented to place , oriented to time, oriented to situation, CN II-XII grossly intact. ABSENT: motor sensory deficit Psychiatric exam: PRESENT: appropriate affect, normal mood. ABSENT: homicidal ideation, suicidal ideation Skin exam: PRESENT: other - +left BKA, + right lower leg wound with dressing in place. Results Laboratory Results: 06/11/17 04:53 06/11/17 04:53 06/10/17 06/10/17 06/11/17 16:42 16:42 04:53 WBC 7.0 RBC 4.23 L Hgb 12.3 L Hct 37.9 MCV 90 MCH 29.2 MCHC 32.5 RDW 20.5 H Plt Count 52 L Seg Neutrophils % Not Reportable Lymphocytes % Not Reportable Monocytes % Not Reportable Eosinophils % Not Reportable Basophils % Not Reportable Absolute Neutrophils Not Reportable Absolute Lymphocytes Not Reportable Absolute Monocytes Not Reportable Absolute Eosinophils Not Reportable Absolute Basophils Not Reportable Sodium Potassium Chloride Carbon Dioxide Anion Gap BUN Creatinine Est GFR ( Amer) Est GFR (Non-Af Amer) Glucose Lactic Acid 2.8 H Calcium Total Bilirubin AST ALT Alkaline Phosphatase C-Reactive Protein 38.5 H Total Protein Albumin 06/11/17 04:53 WBC RBC Hgb Hct MCV MCH MCHC RDW Plt Count Seg Neutrophils % Lymphocytes % Monocytes % Eosinophils % Basophils % Absolute Neutrophils Absolute Lymphocytes Absolute Monocytes Absolute Eosinophils Absolute Basophils Sodium 137.8 Potassium 3.7 Chloride 98 Carbon Dioxide 32 H Anion Gap 8 BUN 49 H Creatinine 1.88 H Est GFR ( Amer) 42 L Est GFR (Non-Af Amer) 35 L Glucose 133 H Lactic Acid Calcium 8.3 L Total Bilirubin 0.8 AST 22 ALT 24 Alkaline Phosphatase 95 C-Reactive Protein Total Protein 5.6 L Albumin 2.9 L Impressions: Abdomen/Pelvis CT 06/10/17 00:00 IMPRESSION: No acute infiltrates in the chest. No acute findings in the abdomen or pelvis Unruptured 5.5 x 4.9 cm infrarenal abdominal aortic aneurysm, 2.9 cm right proximal common iliac artery aneurysm, and 3.4 cm the left proximal common iliac artery aneurysm. Chest CT 06/10/17 00:00 IMPRESSION: No acute infiltrates in the chest. No acute findings in the abdomen or pelvis Unruptured 5.5 x 4.9 cm infrarenal abdominal aortic aneurysm, 2.9 cm right proximal common iliac artery aneurysm, and 3.4 cm the left proximal common iliac artery aneurysm. Chest X-Ray 06/10/17 11:09 IMPRESSION: Borderline cardiomegaly with pulmonary vascular congestion but no melinda CHF. Chronic lung changes. 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 Will remove rodriguez. (2) Hypotension Qualifiers: Hypotension type: other hypotension type Qualified Code(s): I95.89 - Other hypotension Is this a current diagnosis for this admission?: Yes Plan: Secondary to sepsis: We will hold patient's blood pressure medications. Will not give additional fluid unless needed. (3) Fever Qualifiers: Fever type: unspecified Qualified Code(s): R50.9 - Fever, unspecified Is this a current diagnosis for this admission?: Yes Plan: Secondary to GBS: Will continue current antibiotics. (4) Cellulitis of right lower extremity Is this a current diagnosis for this admission?: Yes Plan: Will continue imipenem and clindamycin. Vancomycin not used due to been reported as an allergy. (5) DM type 2 (diabetes mellitus, type 2) Qualifiers: Diabetes mellitus complication status: with circulatory complication Diabetes mellitus complication detail: with peripheral angiopathy without gangrene Diabetes mellitus intermediate frame tender insulin use: with intermediate frame tender use Qualified Code(s): E11.51 - Type 2 diabetes mellitus with diabetic peripheral angiopathy without gangrene; Z79.4 - intermission coordinator (current) use of insulin Is this a current diagnosis for this admission?: Yes Plan: Place patient on sliding scale insulin and long-acting insulin 10 units (6) Thrombocytopenia Is this a current diagnosis for this admission?: Yes Plan: Lovenox discontinued. Will monitor. (7) Chronic diastolic heart failure Is this a current diagnosis for this admission?: Yes Plan: We will monitor patient closely. Patient's chest x-ray demonstrating cardiomegaly with vascular congestion. Due to patient being septic with low blood pressure will try holding off on diuresing patient. (8) Chronic kidney disease, stage 3 Is this a current diagnosis for this admission?: Yes Plan: We will monitor renal function closely (9) Acute respiratory failure with hypoxia Is this a current diagnosis for this admission?: Yes Plan: Secondary to mild COPD exacerbation and sepsis: We will continue with breathing treatments as needed. (10) COPD (chronic obstructive pulmonary disease) Qualifiers: COPD type: COPD with acute exacerbation Qualified Code(s): J44.1 - Chronic obstructive pulmonary disease with (acute) exacerbation Is this a current diagnosis for this admission?: Yes Plan: Mild COPD exacerbation: We will continue breathing treatment. (11) Constipation Qualifiers: Constipation type: unspecified constipation type Qualified Code(s): K59.00 - Constipation, unspecified Is this a current diagnosis for this admission?: Yes Plan: Will place pt on Miralax. (12) Hypoxemia Is this a current diagnosis for this admission?: Yes Plan: We will continue nasal cannula (13) History of pulmonary embolus (PE) Is this a current diagnosis for this admission?: Yes Plan: Will continue warfarin (14) Hyperlipidemia Qualifiers: Hyperlipidemia type: unspecified Qualified Code(s): E78.5 - Hyperlipidemia , unspecified Is this a current diagnosis for this admission?: Yes Plan: Continue statin (15) Subtherapeutic anticoagulation Is this a current diagnosis for this admission?: Yes Plan: Will continue Coumadin. - Time Time Spent with patient: 25-34 minutes
[2017-06-11] MEDS: WARFARIN SODIUM 3 MG TABLET PO SCH (22:58)
[2017-06-11] MEDS: INSULIN GLARGINE,HUM.REC.ANLOG 300 UNIT/3 ML INSULN.PEN SUBCUT SCH (22:58)
[2017-06-11] MEDS: ATORVASTATIN CALCIUM 80 MG TABLET PO SCH (22:58)
[2017-06-12] MEDS: IMIPENEM/CILASTATIN SODIUM 500 MG in NORMAL SALINE 100 ML IV SCH ×5 (00:18→23:08)
[2017-06-12] MEDS: CLINDAMYCIN 600 MG/D5W RTU 600 MG/50 ML RTUPB IV SCH (05:51)
[2017-06-12 06:09] LABS: HEMATOCRIT 38.6 % (37.9-51.0); HEMOGLOBIN 12.9 g/dL (13.5-17.0); HGB HCT DIFFERENCE 0.1; MEAN CORPUSCULAR HEMOGLOBIN 29.8 pg (27.0-33.4); MEAN CORPUSCULAR HGB CONC 33.4 g/dL (32.0-36.0); MEAN CORPUSCULAR VOLUME 89 fl (80-97); RED BLOOD COUNT 4.33 10^6/uL (4.35-5.55); RED CELL DISTRIBUTION WIDTH 20.8 % (11.5-14.0); WHITE BLOOD COUNT 4.2 10^3/uL (4.0-10.5)
[2017-06-12 06:14] LABS: ANION GAP 8 (5-19); BLOOD UREA NITROGEN 40 mg/dL (7-20); CALCIUM 8.5 mg/dL (8.4-10.2); CARBON DIOXIDE 29 mmol/L (22-30); CHLORIDE 103 mmol/L (98-107); CREATININE RESULT 1.45 mg/dL (0.52-1.25); GLUCOSE 195 mg/dL (75-110); POTASSIUM 3.9 mmol/L (3.6-5.0)
[2017-06-12 06:28] LABS: BASOPHILS % (MANUAL) 0 % (0-2); EOSINOPHILS % (MANUAL) 1 % (0-6); LYMPHOCYTES % (MANUAL) 16 % (13-45); TOTAL CELLS COUNTED 100
[2017-06-12 06:30] LABS: ANISOCYTOSIS 2+; POLYCHROMASIA SLIGHT; TOXIC GRANULATION SLIGHT
[2017-06-12] MEDS: OXYCODONE-ACETAMINOPHEN 5-325 MG TABLET PO PRN ×3 (07:09→22:18)
[2017-06-12] MEDS ORDERED: WARFARIN SODIUM 3 MG TABLET PO SCH (07:24)
[2017-06-12] MEDS: INSULIN LISPRO 100 UNIT/ML 3 ML VIAL SUBCUT PRN (08:17)
[2017-06-12] MEDS: IPRATROPIUM/ALBUTEROL 0.5-2.5 MG/3 ML AMPUL NEB PRN (08:45)
[2017-06-12] MEDS: POLYETHYLENE GLYCOL 3350 POWDER 17 GM/1 PACKET PO SCH (09:42)
[2017-06-12] MEDS: ALLOPURINOL 300 MG TABLET PO SCH (09:43)
[2017-06-12] MEDS: METOPROLOL SUCCINATE 50 MG TAB.SR.24H PO SCH (09:44)
[2017-06-12] MEDS: PREGABALIN 75 MG CAPSULE PO SCH ×2 (09:44→22:17)
[2017-06-12] MEDS: FINASTERIDE 5 MG TABLET PO SCH (09:45)
[2017-06-12] MEDS: DOCUSATE SODIUM 100 MG CAPSULE PO SCH ×2 (09:46→18:33)
[2017-06-12] MEDS: BUDESONIDE/FORMOTEROL 160-4.5 MCG 60 PUFF/6 GM MDI IH SCH ×2 (09:55→22:17)
--- NOTE | 2017-06-12 10:51 | PDOC PROGRESS REPORT ---
Subjective Progress Note for:: 06/12/17 Subjective:: Pt states that he is feeling much better. Pt states that he has not have any shaking episodes. Physical Exam Vital Signs: Temp Pulse Resp BP Pulse Ox 98.3 F 63 16 126/55 H 95 06/12/17 07:36 06/12/17 07:36 06/12/17 07:36 06/12/17 07:36 06/12/17 07:36 Intake & Output 06/11/17 06/12/17 06/13/17 06:59 06:59 06:59 Intake Total 265 1200 Output Total 350 2650 Balance -85 -1450 Weight 100.4 kg 97.5 kg General appearance: PRESENT: no acute distress, well-developed, well-nourished Head exam: PRESENT: atraumatic, normocephalic Eye exam: PRESENT: conjunctiva pink, EOMI. ABSENT: scleral icterus Ear exam: PRESENT: normal external ear exam Mouth exam: PRESENT: moist, tongue midline Neck exam: ABSENT: carotid bruit, JVD, lymphadenopathy, thyromegaly Respiratory exam: PRESENT: clear to auscultation dipti. ABSENT: rales, rhonchi, wheezes Cardiovascular exam: PRESENT: RRR. ABSENT: diastolic murmur, rubs, systolic murmur Pulses: PRESENT: normal dorsalis pedis pul Vascular exam: PRESENT: normal capillary refill GI/Abdominal exam: PRESENT: normal bowel sounds, soft. ABSENT: distended, guarding, mass, organolmegaly, rebound, tenderness Rectal exam: PRESENT: deferred Extremities exam: PRESENT: full ROM. ABSENT: calf tenderness, clubbing, pedal edema Neurological exam: PRESENT: alert, awake, oriented to person, oriented to place , oriented to time, oriented to situation, CN II-XII grossly intact. ABSENT: motor sensory deficit Psychiatric exam: PRESENT: appropriate affect, normal mood. ABSENT: homicidal ideation, suicidal ideation Skin exam: PRESENT: other - + right lower leg wound dry no drainage noted. Results Laboratory Results: 06/12/17 04:50 06/12/17 04:50 06/12/17 06/12/17 04:50 04:50 WBC 4.2 RBC 4.33 L Hgb 12.9 L Hct 38.6 MCV 89 MCH 29.8 MCHC 33.4 RDW 20.8 H Plt Count 50 L Seg Neutrophils % Not Reportable Lymphocytes % Not Reportable Monocytes % Not Reportable Eosinophils % Not Reportable Basophils % Not Reportable Absolute Neutrophils Not Reportable Absolute Lymphocytes Not Reportable Absolute Monocytes Not Reportable Absolute Eosinophils Not Reportable Absolute Basophils Not Reportable Sodium 140.0 Potassium 3.9 Chloride 103 Carbon Dioxide 29 Anion Gap 8 BUN 40 H Creatinine 1.45 H Est GFR ( Amer) 57 L Est GFR (Non-Af Amer) 47 L Glucose 195 H Calcium 8.5 06/10/17 17:45 Nasophary (Mrsa Only) MRSA Surveillance Culture - Final MRSA RECOVERED Impressions: Abdomen/Pelvis CT 06/10/17 00:00 IMPRESSION: No acute infiltrates in the chest. No acute findings in the abdomen or pelvis Unruptured 5.5 x 4.9 cm infrarenal abdominal aortic aneurysm, 2.9 cm right proximal common iliac artery aneurysm, and 3.4 cm the left proximal common iliac artery aneurysm. Chest CT 06/10/17 00:00 IMPRESSION: No acute infiltrates in the chest. No acute findings in the abdomen or pelvis Unruptured 5.5 x 4.9 cm infrarenal abdominal aortic aneurysm, 2.9 cm right proximal common iliac artery aneurysm, and 3.4 cm the left proximal common iliac artery aneurysm. Chest X-Ray 06/10/17 11:09 IMPRESSION: Borderline cardiomegaly with pulmonary vascular congestion but no melinda CHF. Chronic lung changes. 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 Wound culture pending. (2) Hypotension Qualifiers: Hypotension type: other hypotension type Qualified Code(s): I95.89 - Other hypotension Is this a current diagnosis for this admission?: Yes Plan: Secondary to sepsis: We will hold patient's blood pressure medications. Will not give additional fluid unless needed. Blood pressure improving. (3) Fever Qualifiers: Fever type: unspecified Qualified Code(s): R50.9 - Fever, unspecified Is this a current diagnosis for this admission?: Yes Plan: Secondary to GBS: Will continue current antibiotics. Pt has been afebrile for greater than 36 hours. (4) Cellulitis of right lower extremity Is this a current diagnosis for this admission?: Yes Plan: Wound culture pending. Will continue imipenem and clindamycin. Vancomycin not used due to been reported as an allergy. 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 Will add meal time insulin. (6) Thrombocytopenia Is this a current diagnosis for this admission?: Yes Plan: Lovenox discontinued. Will monitor. (7) Chronic diastolic heart failure Is this a current diagnosis for this admission?: Yes Plan: We will monitor patient closely. Patient's chest x-ray demonstrating cardiomegaly with vascular congestion. Due to patient being septic with low blood pressure will try holding off on diuresing patient. (8) Chronic kidney disease, stage 3 Is this a current diagnosis for this admission?: Yes Plan: We will monitor renal function closely (9) Acute respiratory failure with hypoxia Is this a current diagnosis for this admission?: Yes Plan: Secondary to mild COPD exacerbation and sepsis: We will continue with breathing treatments as needed. (10) COPD (chronic obstructive pulmonary disease) Qualifiers: COPD type: COPD with acute exacerbation Qualified Code(s): J44.1 - Chronic obstructive pulmonary disease with (acute) exacerbation Is this a current diagnosis for this admission?: Yes Plan: Mild COPD exacerbation: We will continue breathing treatment. (11) Constipation Qualifiers: Constipation type: unspecified constipation type Qualified Code(s): K59.00 - Constipation, unspecified Is this a current diagnosis for this admission?: Yes Plan: Miralax. (12) Hypoxemia Is this a current diagnosis for this admission?: Yes Plan: We will continue nasal cannula (13) History of pulmonary embolus (PE) Is this a current diagnosis for this admission?: Yes Plan: Will increase Warfarin to 5 mg (14) Hyperlipidemia Qualifiers: Hyperlipidemia type: unspecified Qualified Code(s): E78.5 - Hyperlipidemia , unspecified Is this a current diagnosis for this admission?: Yes Plan: Continue statin (15) Subtherapeutic anticoagulation Is this a current diagnosis for this admission?: Yes Plan: Will increase Coumadin. - Time Time Spent with patient: 15-24 minutes
[2017-06-12] MEDS: BESIFLOXACIN HCL 0.6% OPH SUSP 5 ML BOTTLE OS SCH ×2 (12:15→18:34)
[2017-06-12] MEDS: INSULIN LISPRO 100 UNIT/ML 3 ML VIAL SUBCUT SCH ×4 (13:16→22:35)
[2017-06-12] MEDS: MORPHINE SULFATE 10 MG/ML INJ IV PRN ×2 (15:05→22:19)
[2017-06-12] MEDS: ATORVASTATIN CALCIUM 80 MG TABLET PO SCH (22:17)
[2017-06-12] MEDS: WARFARIN SODIUM 5 MG TABLET PO SCH (22:17)
[2017-06-12] MEDS: INSULIN GLARGINE,HUM.REC.ANLOG 300 UNIT/3 ML INSULN.PEN SUBCUT SCH (22:17)
[2017-06-13] MEDS: MORPHINE SULFATE 10 MG/ML INJ IV PRN ×4 (04:02→20:47)
[2017-06-13] MEDS: OXYCODONE-ACETAMINOPHEN 5-325 MG TABLET PO PRN ×4 (04:46→22:53)
[2017-06-13] MEDS: IMIPENEM/CILASTATIN SODIUM 500 MG in NORMAL SALINE 100 ML IV SCH ×3 (05:06→19:04)
[2017-06-13 05:15] LABS: PROTHROMBIN TIME 19.4 SEC (11.4-15.4)
[2017-06-13 05:20] LABS: BLOOD UREA NITROGEN 39 mg/dL (7-20); CALCIUM 8.9 mg/dL (8.4-10.2); CHLORIDE 103 mmol/L (98-107); CREATININE RESULT 1.41 mg/dL (0.52-1.25); GLUCOSE 192 mg/dL (75-110); POTASSIUM 4.2 mmol/L (3.6-5.0)
[2017-06-13 05:29] LABS: ANION GAP 9 (5-19); CARBON DIOXIDE 30 mmol/L (22-30); SODIUM 142.3 mmol/L (137-145)
[2017-06-13 05:32] LABS: HEMOGLOBIN 12.7 g/dL (13.5-17.0); HGB HCT DIFFERENCE 0.1; MEAN CORPUSCULAR HEMOGLOBIN 30.3 pg (27.0-33.4); MEAN CORPUSCULAR HGB CONC 33.5 g/dL (32.0-36.0); MEAN CORPUSCULAR VOLUME 91 fl (80-97); RED CELL DISTRIBUTION WIDTH 21.2 % (11.5-14.0); WHITE BLOOD COUNT 4.7 10^3/uL (4.0-10.5)
[2017-06-13 05:58] LABS: BAND NEUTROPHILS % (MANUAL) 1 % (3-5); BASOPHILS % (MANUAL) 1 % (0-2); EOSINOPHILS % (MANUAL) 1 % (0-6); LYMPHOCYTES % (MANUAL) 15 % (13-45); TOTAL CELLS COUNTED 100
[2017-06-13 06:00] LABS: ANISOCYTOSIS 3+; OVALOCYTES SLIGHT; POIKILOCYTOSIS SLIGHT
[2017-06-13] MEDS: INSULIN LISPRO 100 UNIT/ML 3 ML VIAL SUBCUT SCH ×7 (07:50→22:53)
[2017-06-13] MEDS: BUDESONIDE/FORMOTEROL 160-4.5 MCG 60 PUFF/6 GM MDI IH SCH ×2 (10:44→22:52)
[2017-06-13] MEDS: ALLOPURINOL 300 MG TABLET PO SCH (10:46)
[2017-06-13] MEDS: PREGABALIN 75 MG CAPSULE PO SCH ×2 (10:46→22:51)
[2017-06-13] MEDS: METOPROLOL SUCCINATE 50 MG TAB.SR.24H PO SCH (10:48)
[2017-06-13] MEDS: DOCUSATE SODIUM 100 MG CAPSULE PO SCH ×2 (10:49→19:04)
[2017-06-13] MEDS: POLYETHYLENE GLYCOL 3350 POWDER 17 GM/1 PACKET PO SCH (10:49)
[2017-06-13] MEDS: FINASTERIDE 5 MG TABLET PO SCH (11:10)
[2017-06-13] MEDS: BESIFLOXACIN HCL 0.6% OPH SUSP 5 ML BOTTLE OS SCH ×2 (11:40→19:05)
--- NOTE | 2017-06-13 15:10 | PDOC PROGRESS REPORT ---
Subjective Progress Note for:: 06/13/17 Subjective:: Pt states that the is feeling much better. Physical Exam Vital Signs: Temp Pulse Resp BP Pulse Ox 97.9 F 59 L 18 129/54 H 92 06/13/17 11:59 06/13/17 11:59 06/13/17 11:59 06/13/17 11:59 06/13/17 11:59 Intake & Output 06/12/17 06/13/17 06/14/17 06:59 06:59 06:59 Intake Total 1200 2686 Output Total 2650 1125 Balance -1450 1561 Weight 97.5 kg 97.6 kg General appearance: PRESENT: no acute distress, well-developed, well-nourished Head exam: PRESENT: atraumatic, normocephalic Eye exam: PRESENT: conjunctiva pink, EOMI, PERRLA. ABSENT: scleral icterus Ear exam: PRESENT: normal external ear exam Mouth exam: PRESENT: moist, tongue midline Neck exam: ABSENT: carotid bruit, JVD, lymphadenopathy, thyromegaly Respiratory exam: PRESENT: clear to auscultation dipti. ABSENT: rales, rhonchi, wheezes Cardiovascular exam: PRESENT: bradycardia Pulses: PRESENT: normal dorsalis pedis pul Vascular exam: PRESENT: normal capillary refill GI/Abdominal exam: PRESENT: normal bowel sounds, soft. ABSENT: distended, guarding, mass, organolmegaly, rebound, tenderness Rectal exam: PRESENT: deferred Extremities exam: PRESENT: other - left BKA, + right lower leg with dressing in place. Musculoskeletal exam: PRESENT: other - + left BKA, Neurological exam: PRESENT: alert, awake, oriented to person, oriented to place , oriented to time, oriented to situation, CN II-XII grossly intact. ABSENT: motor sensory deficit Psychiatric exam: PRESENT: appropriate affect, normal mood. ABSENT: homicidal ideation, suicidal ideation Skin exam: PRESENT: dry, warm. ABSENT: cyanosis, rash Results Laboratory Results: 06/13/17 03:53 06/13/17 03:53 06/13/17 06/13/17 03:53 03:53 WBC 4.7 RBC 4.20 L Hgb 12.7 L Hct 38.0 MCV 91 MCH 30.3 MCHC 33.5 RDW 21.2 H Plt Count 45 L Seg Neutrophils % Not Reportable Lymphocytes % Not Reportable Monocytes % Not Reportable Eosinophils % Not Reportable Basophils % Not Reportable Absolute Neutrophils Not Reportable Absolute Lymphocytes Not Reportable Absolute Monocytes Not Reportable Absolute Eosinophils Not Reportable Absolute Basophils Not Reportable Sodium 142.3 Potassium 4.2 Chloride 103 Carbon Dioxide 30 Anion Gap 9 BUN 39 H Creatinine 1.41 H Est GFR ( Amer) 59 L Est GFR (Non-Af Amer) 49 L Glucose 192 H Calcium 8.9 06/10/17 17:02 Leg - Michelle Gram Stain - Final Impressions: Abdomen/Pelvis CT 06/10/17 00:00 IMPRESSION: No acute infiltrates in the chest. No acute findings in the abdomen or pelvis Unruptured 5.5 x 4.9 cm infrarenal abdominal aortic aneurysm, 2.9 cm right proximal common iliac artery aneurysm, and 3.4 cm the left proximal common iliac artery aneurysm. Chest CT 06/10/17 00:00 IMPRESSION: No acute infiltrates in the chest. No acute findings in the abdomen or pelvis Unruptured 5.5 x 4.9 cm infrarenal abdominal aortic aneurysm, 2.9 cm right proximal common iliac artery aneurysm, and 3.4 cm the left proximal common iliac artery aneurysm. Chest X-Ray 06/10/17 11:09 IMPRESSION: Borderline cardiomegaly with pulmonary vascular congestion but no melinda CHF. Chronic lung changes. 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 Wound culture pending. (2) Hypotension Qualifiers: Hypotension type: other hypotension type Qualified Code(s): I95.89 - Other hypotension Is this a current diagnosis for this admission?: Yes Plan: Secondary to sepsis: We will hold patient's blood pressure medications. Will not give additional fluid unless needed. Blood pressure improving. (3) Fever Qualifiers: Fever type: unspecified Qualified Code(s): R50.9 - Fever, unspecified Is this a current diagnosis for this admission?: Yes Plan: Secondary to GBS: Will continue current antibiotics. (4) Cellulitis of right lower extremity Is this a current diagnosis for this admission?: Yes Plan: Wound culture pending. Will continue imipenem. Vancomycin not used due to been reported as an allergy. 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 Scheduled meal time insulin. (6) Thrombocytopenia Is this a current diagnosis for this admission?: Yes Plan: Lovenox discontinued. Will monitor. (7) Chronic diastolic heart failure Is this a current diagnosis for this admission?: Yes Plan: We will monitor patient closely. Patient's chest x-ray demonstrating cardiomegaly with vascular congestion. Pt off diuretics currently. (8) Chronic kidney disease, stage 3 Is this a current diagnosis for this admission?: Yes Plan: We will monitor renal function closely (9) Acute respiratory failure with hypoxia Is this a current diagnosis for this admission?: Yes Plan: Secondary to mild COPD exacerbation and sepsis: We will continue with breathing treatments as needed. (10) COPD (chronic obstructive pulmonary disease) Qualifiers: COPD type: COPD with acute exacerbation Qualified Code(s): J44.1 - Chronic obstructive pulmonary disease with (acute) exacerbation Is this a current diagnosis for this admission?: Yes Plan: Mild COPD exacerbation: We will continue breathing treatment. (11) Constipation Qualifiers: Constipation type: unspecified constipation type Qualified Code(s): K59.00 - Constipation, unspecified Is this a current diagnosis for this admission?: Yes Plan: Miralax. (12) Hypoxemia Is this a current diagnosis for this admission?: Yes Plan: We will continue nasal cannula (13) History of pulmonary embolus (PE) Is this a current diagnosis for this admission?: Yes Plan: Warfarin to 5 mg (14) Hyperlipidemia Qualifiers: Hyperlipidemia type: unspecified Qualified Code(s): E78.5 - Hyperlipidemia , unspecified Is this a current diagnosis for this admission?: Yes Plan: Continue statin (15) Subtherapeutic anticoagulation Is this a current diagnosis for this admission?: Yes Plan: Coumadin. - Time Time Spent with patient: 15-24 minutes Anticipated discharge: Home
[2017-06-13] MEDS: WARFARIN SODIUM 5 MG TABLET PO SCH (22:51)
[2017-06-13] MEDS: ATORVASTATIN CALCIUM 80 MG TABLET PO SCH (22:51)
[2017-06-13] MEDS: INSULIN GLARGINE,HUM.REC.ANLOG 300 UNIT/3 ML INSULN.PEN SUBCUT SCH (22:51)
[2017-06-13] MEDS: IMIPENEM/CILASTATIN SODIUM 500 MG in DEXTROSE 5%-WATER 100 ML IV SCH (23:00)
[2017-06-14] MEDS: OXYCODONE-ACETAMINOPHEN 5-325 MG TABLET PO PRN ×2 (04:58→12:11)
[2017-06-14] MEDS: IMIPENEM/CILASTATIN SODIUM 500 MG in DEXTROSE 5%-WATER 100 ML IV SCH ×2 (05:08→12:12)
[2017-06-14 05:21] LABS: HEMATOCRIT 40.7 % (37.9-51.0); HEMOGLOBIN 13.2 g/dL (13.5-17.0); HGB HCT DIFFERENCE -1.1; MEAN CORPUSCULAR HEMOGLOBIN 29.5 pg (27.0-33.4); MEAN CORPUSCULAR HGB CONC 32.3 g/dL (32.0-36.0); MEAN CORPUSCULAR VOLUME 91 fl (80-97); RED BLOOD COUNT 4.46 10^6/uL (4.35-5.55); RED CELL DISTRIBUTION WIDTH 21.1 % (11.5-14.0); WHITE BLOOD COUNT 5.1 10^3/uL (4.0-10.5)
[2017-06-14 05:32] LABS: ANION GAP 9 (5-19); BLOOD UREA NITROGEN 37 mg/dL (7-20); CALCIUM 8.8 mg/dL (8.4-10.2); CARBON DIOXIDE 28 mmol/L (22-30); CHLORIDE 106 mmol/L (98-107); GLUCOSE 108 mg/dL (75-110); POTASSIUM 4.5 mmol/L (3.6-5.0); SODIUM 142.5 mmol/L (137-145)
[2017-06-14 06:18] LABS: BASOPHILS % (MANUAL) 0 % (0-2); EOSINOPHILS % (MANUAL) 0 % (0-6); LYMPHOCYTES % (MANUAL) 24 % (13-45); TOTAL CELLS COUNTED 100
[2017-06-14 06:24] LABS: ANISOCYTOSIS 3+; POIKILOCYTOSIS SLIGHT; POLYCHROMASIA SLIGHT
[2017-06-14 06:25] LABS: OVALOCYTES SLIGHT; TEAR DROP CELLS SLIGHT
[2017-06-14] MEDS: INSULIN LISPRO 100 UNIT/ML 3 ML VIAL SUBCUT SCH ×4 (08:23→12:12)
[2017-06-14] MEDS: METOPROLOL SUCCINATE 50 MG TAB.SR.24H PO SCH (09:34)
[2017-06-14] MEDS: PREGABALIN 75 MG CAPSULE PO SCH (09:34)
[2017-06-14] MEDS: DOCUSATE SODIUM 100 MG CAPSULE PO SCH (09:34)
[2017-06-14] MEDS: ALLOPURINOL 300 MG TABLET PO SCH (09:35)
[2017-06-14] MEDS: BUDESONIDE/FORMOTEROL 160-4.5 MCG 60 PUFF/6 GM MDI IH SCH (09:36)
[2017-06-14] MEDS: FINASTERIDE 5 MG TABLET PO SCH (09:36)
[2017-06-14] MEDS: POLYETHYLENE GLYCOL 3350 POWDER 17 GM/1 PACKET PO SCH (09:37)
[2017-06-14] MEDS: MORPHINE SULFATE 10 MG/ML INJ IV PRN (09:48)
[2017-06-14] MEDS: BESIFLOXACIN HCL 0.6% OPH SUSP 5 ML BOTTLE OS SCH (10:49)
[2017-06-14 13:13] VITALS: BP 100/45
--- NOTE | 2017-06-14 13:30 | PDOC DISCHARGE SUMMARY ---
General - Admit/Disc Date/PCP Admission Date/Primary Care Provider: 06/10/17 15:26 Discharge Date: 06/14/17 - Discharge Diagnosis (1) Sepsis Is this a current diagnosis for this admission?: Yes Summary: Secondary to GBS Bacteremia: Patient was placed on meropenem and then switched to Levaquin 500 mg p.o. daily. Patient refused 2D echo. Patient was encouraged to have echo done as outpatient. (2) Hypotension Is this a current diagnosis for this admission?: Yes Summary: Resolved secondary to sepsis (3) Fever Is this a current diagnosis for this admission?: Yes Summary: Secondary to sepsis due to GBS bacteremia: Patient discharged home on Levaquin. (4) Cellulitis of right lower extremity Is this a current diagnosis for this admission?: Yes Summary: Patient's wound culture demonstrated enterococcus that was sensitive to all antibiotics. Patient's wound improved while here in hospital on IV antibiotics. Recommend continuing wound care (5) DM type 2 (diabetes mellitus, type 2) Is this a current diagnosis for this admission?: Yes Summary: Will have pt continue home medication. (6) Thrombocytopenia Is this a current diagnosis for this admission?: Yes Summary: Chronic Thrombocytopenia: Will continue to monitor. (7) Chronic diastolic heart failure Is this a current diagnosis for this admission?: Yes Summary: Pt will continue current treatment plan. (8) Chronic kidney disease, stage 3 Is this a current diagnosis for this admission?: Yes Summary: Patient's renal function improved during this hospitalization. Pt was told that he will need to have BMP done next week to make sure his renal function remained stable while on antibiotics (9) Acute respiratory failure with hypoxia Is this a current diagnosis for this admission?: Yes Summary: Resolved. Secondary to mild COPD exacerbation (10) COPD (chronic obstructive pulmonary disease) Is this a current diagnosis for this admission?: Yes Summary: Mild COPD exacerbation resolved. (11) Constipation Is this a current diagnosis for this admission?: Yes Summary: Resolved. (12) Hypoxemia Is this a current diagnosis for this admission?: Yes Summary: Secondary to COPD exacerbation: Resolved. (13) History of pulmonary embolus (PE) Is this a current diagnosis for this admission?: Yes Summary: She was noted to be subtherapeutic on warfarin. Therefore Coumadin dose was increased. Patient will be on Levaquin therefore INR will need to be monitored closely to make sure patient does not become supratherapeutic. She was told to have an INR done in 2 days. (14) Hyperlipidemia Is this a current diagnosis for this admission?: Yes Summary: Continue statin. (15) Subtherapeutic anticoagulation Is this a current diagnosis for this admission?: Yes Summary: His warfarin dose was increased to 3 mg due to patient being subtherapeutic. Patient's INR will need to be monitored closely while patient is on Levaquin to make sure patient does not become supratherapeutic. - Additional Information Resuscitation Status: Full Code Discharge Diet: Cardiac, Diabetic Discharge Activity: Activity As Tolerated Home Medications: Allopurinol [Zyloprim 300 mg Tablet] 150 mg PO DAILY 06/10/17 Aspirin [Aspirin EC] 81 mg PO DAILY 06/10/17 Atorvastatin Calcium [Lipitor 80 mg Tablet] 80 mg PO QHS 06/10/17 Besifloxacin HCl [Besivance 0.6% Oph Susp 5 ml] 1 drop OS BID 06/10/17 Budesonide/Formoterol Fumarate [Symbicort HFA 160-4.5 mcg Inhaler 6 gm] 2 puff IH Q12 06/10/17 Bumetanide [Bumex 2 mg Tablet] 1 tab PO BID 06/10/17 Cholecalciferol (Vitamin D3) [Vitamin D3] 400 unit PO DAILY 06/10/17 Difluprednate [Durezol] 1 drop OS BID 06/10/17 Docusate Sodium [Colace 100 mg Capsule] 100 mg PO BID 06/10/17 Finasteride [Proscar 5 mg Tablet] 5 mg PO QHS 06/10/17 Hydralazine HCl [Apresoline 25 mg Tablet] 25 mg PO Q12 06/10/17 Hydrocodone Bit/Acetaminophen [Hydrocodon-Acetaminophn 10-325] 1 each PO Q6HP PRN 06/10/17 Insulin Glargine,Hum.rec.anlog [Lantus Solostar] 6 unit SQ QHS 06/10/17 Isosorbide Mononitrate [Isosorbide Mononitrate ER] 90 mg PO DAILY 06/10/17 Magnesium Oxide [Magnesium] 400 mg PO BID 06/10/17 Metolazone [Zaroxolyn 2.5 mg Tablet] 2.5 mg PO MOWEFR@1000 06/10/17 Metoprolol Succinate [Toprol Xl 50 mg Tab.sr] 50 mg PO DAILY 06/10/17 Nepafenac [Ilevro] 1 drop OS DAILY 06/10/17 Nitroglycerin [Nitrostat] 0.4 mg SL Q5MP PRN 06/10/17 Omeprazole 20 mg PO QAM 06/10/17 Pregabalin [Lyrica] 150 mg PO Q12 06/10/17 Ranolazine [Ranexa 500 mg Tab.sr] 1,000 mg PO Q12 06/10/17 Tamsulosin HCl [Flomax 0.4 mg Cap.sr] 0.8 mg PO QHS 06/10/17 Tiotropium [place] [Spiriva Handihaler 5 Cap/Kit (18 Mcg/Cap)] 1 cap IH DAILY Zolpidem Tartrate [Ambien 5 mg Tablet] 5 mg PO HSP PRN 06/10/17 Multivitamin/Iron/Folic Acid [Centrum Adults Tablet] 1 each PO DAILY 06/11/17 Vitamin B Complex [B Complex] 1 each PO DAILY 06/11/17 Levofloxacin [Levaquin 500 mg Tablet] 500 mg PO DAILY #10 tablet 06/14/17 Oxycodone HCl/Acetaminophen [Percocet 5-325 mg Tablet] 1 tab PO Q6HP PRN #12 tablet 06/14/17 Warfarin Sodium 3 mg PO QPM #30 tablet 06/14/17 History of Present Illness History of Present Illness: TRUONG PINK is a 76 year old male with complaint of shaking. Patient states that he began shaking early this morning. Patient's states that she touched her and felt that he was very hot. states the patient complained of having chills earlier that morning. states that patient's shaking became so severe that he was not able to stand. states that he broke out in a cold sweat during this episode. reports that this occurred about 10 AM today. States that patient has been coughing more than normal. describes cough as being somewhat red in nature patient denies any diarrhea. states that patient normally has high blood pressure. ER called the hospitals office asking for admission during signout the ER physician stated that patient appeared somewhat confused states his temperature was 104.5 patient was given Tylenol and the temperature was 102.5 ER physician also noted the patient was hypotensive. During my encounter with patient patient denied any neck pain any photosensitivity denied any rash. Also denied any sick contacts. Hospital Course Hospital Course: This is a 76-year-old gentleman was admitted to our facility after experiencing shivering chills at home. Patient was noted to be febrile in the emergency room on presentation. Blood cultures were obtained and 1 blood culture demonstrated GBS. Patient had been placed on meropenem which he tolerated well. Once ID and sensitivities were known patient's antibiotics were narrowed. Patient was placed on Levaquin for additional 10 days to complete 14 days of treatment. 2D echo was ordered to evaluate patient's heart however patient declined 2D echo. Patient was encouraged to have 2D echo done as outpatient. Patient was also told that if he has return of fevers after completing antibiotics that he will need to come to the emergency room immediately due to patient having an AICD in place could be infected. Patient' s renal function improved during this hospitalization however have recommended that patient have BMP as outpatient to monitor patient's renal function closely while on antibiotics. Patient was noted to be subtherapeutic on Coumadin therefore Coumadin dose was increased to 3 mg. Patient will need to have INR in 2 weeks. Patient's INR will need to be monitored closely while patient is on Levaquin. Patient was noted to have a mild COPD exacerbation at time of admission however this resolved with breathing treatments. Physical Exam Vital Signs: Temp Pulse Resp BP Pulse Ox 97.9 F 71 16 100/45 L 91 L 06/14/17 13:07 06/14/17 13:07 06/14/17 13:07 06/14/17 13:07 06/14/17 13:07 Intake & Output 06/13/17 06/14/17 06/15/17 06:59 06:59 06:59 Intake Total 2686 1150 Output Total 1125 1600 Balance 1561 -450 Weight 97.6 kg 100.8 kg General appearance: PRESENT: no acute distress, well-developed, well-nourished Head exam: PRESENT: atraumatic, normocephalic Eye exam: PRESENT: conjunctiva pink, EOMI. ABSENT: scleral icterus Ear exam: PRESENT: normal external ear exam Mouth exam: PRESENT: moist, tongue midline Neck exam: ABSENT: carotid bruit, JVD, lymphadenopathy, thyromegaly Respiratory exam: PRESENT: clear to auscultation dipti. ABSENT: rales, rhonchi, wheezes Pulses: PRESENT: normal dorsalis pedis pul GI/Abdominal exam: PRESENT: normal bowel sounds, soft. ABSENT: distended, guarding, mass, organolmegaly, rebound, tenderness Rectal exam: PRESENT: deferred Extremities exam: PRESENT: full ROM. ABSENT: calf tenderness, clubbing, pedal edema Musculoskeletal exam: PRESENT: other - Left BKA with prosthetic in place Neurological exam: PRESENT: alert, awake, oriented to person, oriented to place , oriented to time, oriented to situation, CN II-XII grossly intact. ABSENT: motor sensory deficit Psychiatric exam: PRESENT: appropriate affect, normal mood. ABSENT: homicidal ideation, suicidal ideation Skin exam: PRESENT: dry, warm, other - Right lower leg wound dry no drainage noted.. ABSENT: cyanosis, rash Results Laboratory Results: 06/14/17 04:10 06/14/17 04:10 06/14/17 06/14/17 04:10 04:10 WBC 5.1 RBC 4.46 Hgb 13.2 L Hct 40.7 MCV 91 MCH 29.5 MCHC 32.3 RDW 21.1 H Plt Count 54 L Seg Neutrophils % Not Reportable Lymphocytes % Not Reportable Monocytes % Not Reportable Eosinophils % Not Reportable Basophils % Not Reportable Absolute Neutrophils Not Reportable Absolute Lymphocytes Not Reportable Absolute Monocytes Not Reportable Absolute Eosinophils Not Reportable Absolute Basophils Not Reportable Sodium 142.5 Potassium 4.5 Chloride 106 Carbon Dioxide 28 Anion Gap 9 BUN 37 H Creatinine 1.30 H Est GFR ( Amer) > 60 Est GFR (Non-Af Amer) 53 L Glucose 108 Calcium 8.8 06/10/17 17:02 Leg - Michelle Gram Stain - Final 06/10/17 17:02 Leg - Michelle Wound Culture - Final Enterococcus Faecalis(Group D) Skin Idann Impressions: Abdomen/Pelvis CT 06/10/17 00:00 IMPRESSION: No acute infiltrates in the chest. No acute findings in the abdomen or pelvis Unruptured 5.5 x 4.9 cm infrarenal abdominal aortic aneurysm, 2.9 cm right proximal common iliac artery aneurysm, and 3.4 cm the left proximal common iliac artery aneurysm. Chest CT 06/10/17 00:00 IMPRESSION: No acute infiltrates in the chest. No acute findings in the abdomen or pelvis Unruptured 5.5 x 4.9 cm infrarenal abdominal aortic aneurysm, 2.9 cm right proximal common iliac artery aneurysm, and 3.4 cm the left proximal common iliac artery aneurysm. Chest X-Ray 06/10/17 11:09 IMPRESSION: Borderline cardiomegaly with pulmonary vascular congestion but no melinda CHF. Chronic lung changes. Plan Time Spent: Greater than 30 Minutes
== END 2017-06-14 13:30 | disposition home or self-care (01) | DRG 871 ==
LOC: ER 11:06 → EH 15:26 → 3N 19:15
PROVIDERS: ADMIT Emergency Medicine; ATTEND Emergency Medicine
DX: A40.1 Sepsis due to streptococcus, group B (principal); J96.01 Acute respiratory failure with hypoxia; I50.32 Chronic diastolic (congestive) heart failure; J44.1 Chronic obstructive pulmonary disease with (acute) exacerbation; I13.0 Hypertensive heart and chronic kidney disease with heart failure and stage 1 through stage 4 chronic kidney disease, or unspecified chronic kidney disease; L03.115 Cellulitis of right lower limb; I25.10 Atherosclerotic heart disease of native coronary artery without angina pectoris; E78.5 Hyperlipidemia, unspecified; I73.9 Peripheral vascular disease, unspecified; I71.4 Abdominal aortic aneurysm, without rupture; E11.51 Type 2 diabetes mellitus with diabetic peripheral angiopathy without gangrene; E11.22 Type 2 diabetes mellitus with diabetic chronic kidney disease; N18.3 Chronic kidney disease, stage 3 (moderate); K59.00 Constipation, unspecified; R79.1 Abnormal coagulation profile; N40.0 Benign prostatic hyperplasia without lower urinary tract symptoms; I25.2 Old myocardial infarction; Z88.0 Allergy status to penicillin; Z88.1 Allergy status to other antibiotic agents; Z89.512 Acquired absence of left leg below knee; Z95.0 Presence of cardiac pacemaker; Z95.1 Presence of aortocoronary bypass graft; Z95.5 Presence of coronary angioplasty implant and graft; Z86.711 Personal history of pulmonary embolism
CPT/HCPCS: 36415; 51702; 71010; 71250; 74176; 80048; 80053; 81001; 82550; 82553; 82803; 82962; 83036; 83605; 84484; 85025; 85610; 85652; 86140; 86603; 87040; 87070; 87077; 87086; 87186; 87205; 87804; 93005; 93010; 94640; 94799; 99291; J0696; J0743; J1815; J2270; J3490; J7030; J7620; S0119

== ENCOUNTER 2017-07-08 13:13 | Inpatient (IN) | payer OTHER, MEDICARE ==
--- NOTE | 2017-07-08 13:59 | ER Document Report ---
ED Respiratory Problem - General Mode of Arrival: Ambulatory Information source: Patient TRAVEL OUTSIDE OF THE [place] IN LAST 30 DAYS: No - HPI Patient complains to provider of: Cough <JOSE L CAMEJO - Last Filed: 07/08/17 14:19> <FELICIA BROWN - Last Filed: 07/08/17 17:09> - General Chief Complaint: Shortness Of Breath Stated Complaint: SHORTNESS OF BREATH Time Seen by Provider: 07/08/17 13:42 Notes: Patient is a 76 year old male that presents to the emergency department today with complaints of a cough of a x3-4 day duration. Patient mentions that he fell a few days ago, landing on his left side. Patient states he has had left sided abdomen and rib pain since the fall. Patient's cough started right around the time of the fall. (JOSE L CAMEJO) - Related Data Allergies/Adverse Reactions: Penicillins Allergy (Unknown, Verified 05/17/17 10:40) vancomycin [Vancomycin] Adverse Reaction (Verified 08/24/16 13:13) Past Medical History - General Information source: Patient - Social History Smoking Status: Unknown if Ever Smoked Cigarette use (# per day): No Chew tobacco use (# tins/day): No Frequency of alcohol use: None Drug Abuse: None Lives with: Family Family History: Reviewed & Not Pertinent, CAD, COPD - Past Medical History Cardiac Medical History: Reports: Hx Atrial Fibrillation, Hx Congestive Heart Failure, Hx Coronary Artery Disease, Hx Heart Attack - x6, Hx Hypercholesterolemia, Hx Hypertension, Hx Peripheral Vascular Disease, Hx Pulmonary Embolism Pulmonary Medical History: Reports: Hx Asthma, Hx Bronchitis, Hx COPD, Hx Sleep Apnea - without c-pap Endocrine Medical History: Reports: Hx Diabetes Mellitus Type 2 Renal/ Medical History: Reports: Hx Benign Prostatic Hyperplasia, Hx Kidney Stones GI Medical History: Reports: Hx Gastroesophageal Reflux Disease Musculoskeltal Medical History: Reports Hx Arthritis Past Surgical History: Reports: Hx Abdominal Surgery - AAA, Hx Cardiac Catheterization, Hx Cardiac Surgery - triple bypass, Hx Coronary Artery Bypass Graft - quadruple, Hx Coronary Stent, Hx Internal Defibrillator, Hx Open Heart Surgery - LATE S, Hx Orthopedic Surgery - Left BKA, Hx Pacemaker - Immunizations Hx Diphtheria, Pertussis, Tetanus Vaccination: Yes Hx Pneumococcal Vaccination: 07/04/08 <JOSE L CAMEJO - Last Filed: 07/08/17 14:19> Review of Systems - Review of Systems Constitutional: denies: Fever EENT: No symptoms reported Cardiovascular: No symptoms reported Respiratory: See HPI, Cough Gastrointestinal: No symptoms reported Genitourinary: No symptoms reported Male Genitourinary: No symptoms reported Musculoskeletal: No symptoms reported Skin: No symptoms reported Hematologic/Lymphatic: No symptoms reported Neurological/Psychological: No symptoms reported -: Yes All other systems reviewed and negative <JOSE L CAMEJO - Last Filed: 07/08/17 14:19> Physical Exam - Vital signs Interpretation: Normal - General General appearance: Appears well, Alert - HEENT Head: Normocephalic, Atraumatic Eyes: Normal Pupils: PERRL - Respiratory Respiratory status: No respiratory distress Chest status: Tender - Left lateral rib tenderness with palpation, Other - wheezing and rhonchi with cough, congested sounding cough Breath sounds: Normal Chest palpation: Normal - Cardiovascular Rhythm: Regular Heart sounds: Normal auscultation Murmur: No - Abdominal Inspection: Obese Distension: No distension Bowel sounds: Normal Tenderness: Tender - LUQ tenderness with palpation Organomegaly: No organomegaly - Back Back: Normal, Nontender - Extremities General upper extremity: Normal inspection, Normal ROM, Normal strength. No: Edema General lower extremity: Normal inspection, Normal ROM, Normal strength. No: Edema - Neurological Neuro grossly intact: Yes Cognition: Normal Orientation: AAOx4 [place] Coma Scale Eye Opening: Spontaneous Tom Coma Scale Verbal: Oriented Tom Coma Scale Motor: Obeys Commands Tom Coma Scale Total: 15 Speech: Normal - Psychological Associated symptoms: Normal affect, Normal mood - Skin Skin Temperature: Warm Skin Moisture: Dry Skin Color: Normal <JOSE L CAMEJO - Last Filed: 07/08/17 14:19> - Vital signs Vitals: Resp Pulse Ox 23 H 93 07/08/17 13:24 07/08/17 13:24 Course - Laboratory Result Diagrams: 07/08/17 14:20 07/08/17 14:20 - Diagnostic Test Radiology reviewed: Image reviewed, Reports reviewed - CT of chest shows stable chronic changes. - EKG Interpretation by Ar EKG shows normal: [place], Intervals, ST-T Waves. abnormal: QRS Complexes - Old inferior wall PA, probable old anterio-lateral PA Rate: Normal - 60 [place]/QRS: IVCD When compared to previous EKG there are: No significant change - Consults Dr. Mota Time consulted: 17:00 Consulted provider: will come to ER - Telemetry admission Dr. Masterson Time consulted: 16:55 Consulted provider: will come to ER <FELICIA BROWN - Last Filed: 07/08/17 17:09> - Vital Signs Vital signs: Temp Pulse Resp BP Pulse Ox 99.7 F 22 H 120/51 L 94 07/08/17 15:38 07/08/17 16:01 07/08/17 16:01 07/08/17 16:01 - Laboratory Laboratory results interpreted by me: 07/08/17 07/08/17 07/08/17 14:20 14:20 14:20 RDW 20.5 H Plt Count 74 L Lymphocytes % 8.7 L PT 19.6 H Potassium 3.3 L Chloride 95 L Carbon Dioxide 37 H BUN 58 H Creatinine 1.88 H Est GFR ( Amer) 42 L Est GFR (Non-Af Amer) 35 L Glucose 156 H Direct Bilirubin 0.6 H Alkaline Phosphatase 148 H Creatine Kinase 22 L Discharge <JOSE L CAMEJO - Last Filed: 07/08/17 14:19> - Discharge Admitting Provider: Hospitalist Unit Admitted: Telemetry <FELICIA BROWN - Last Filed: 07/08/17 17:09> - Discharge Clinical Impression: Inadequate anticoagulation, COPD with acute exacerbation Left rib fracture Qualifiers: Encounter type: initial encounter Rib fracture type: single rib Fracture type: closed Qualified Code(s): S22.32XA - Fracture of one rib, left side, initial encounter for closed fracture Splenic laceration Qualifiers: Encounter type: initial encounter Qualified Code(s): S36.039A - Unspecified laceration of spleen, initial encounter Contusion of rib on left side Qualifiers: Encounter type: initial encounter Qualified Code(s): S20.212A - Contusion of left front wall of thorax, initial encounter Condition: Stable Disposition: ADMITTED INPATIENT Scribe Attestation: 07/08/17 17:01 I personally performed the services described in the documentation, reviewed and edited the documentation which was dictated to the scribe in my presence, and it accurately records my words and actions. (FELICIA BROWN) Scribe Documentation - Scribe Written by Scribe:: Robert Wiley, 07/08/2017 1415 acting as scribe for :: Iliana <JOSE L CAMEJO - Last Filed: 07/08/17 14:19>
[2017-07-08] MEDS ORDERED: ONDANSETRON HCL INJ/PF 4 MG/2 ML SDV IV ONE (14:06)
[2017-07-08] MEDS ORDERED: MORPHINE SULFATE 10 MG/ML INJ IV ONE (14:06)
[2017-07-08 15:04] LABS: ABSOLUTE EOSINOPHILS # (AUTO) 0.1 10^3/uL (0.0-0.6); ABSOLUTE LYMPHOCYTES (AUTO) 0.8 10^3/uL (0.5-4.7); ABSOLUTE MONOCYTES (AUTO) 1.2 10^3/uL (0.1-1.4); ABSOLUTE NEUT (AUTO) 7.5 10^3/uL (1.7-8.2); BASOPHILS % (AUTO) 0.3 % (0-2); EOSINOPHILS % (AUTO) 0.6 % (0-6); HEMATOCRIT 43.2 % (37.9-51.0); HEMOGLOBIN 14.3 g/dL (13.5-17.0); HGB HCT DIFFERENCE -0.3; LYMPHOCYTES % (AUTO) 8.7 % (13-45); MEAN CORPUSCULAR HEMOGLOBIN 29.7 pg (27.0-33.4); MEAN CORPUSCULAR HGB CONC 33.2 g/dL (32.0-36.0); MEAN CORPUSCULAR VOLUME 90 fl (80-97); MONOCYTES % (AUTO) 12.4 % (3-13); RED BLOOD COUNT 4.82 10^6/uL (4.35-5.55); RED CELL DISTRIBUTION WIDTH 20.5 % (11.5-14.0); WHITE BLOOD COUNT 9.6 10^3/uL (4.0-10.5)
[2017-07-08 15:14] LABS: ALANINE AMINOTRANSFERASE 35 U/L (21-72); ALBUMIN 3.8 g/dL (3.5-5.0); ALKALINE PHOSPHATASE 148 U/L (38-126); ANION GAP 10 (5-19); ASPARTATE AMINO TRANSFERASE 22 U/L (17-59); BILIRUBIN,DIRECT 0.6 mg/dL (0.0-0.4); BLOOD UREA NITROGEN 58 mg/dL (7-20); CALCIUM 9.2 mg/dL (8.4-10.2); CARBON DIOXIDE 37 mmol/L (22-30); CHLORIDE 95 mmol/L (98-107); CREATINE KINASE 22 U/L (55-170); CREATININE RESULT 1.88 mg/dL (0.52-1.25); GLUCOSE 156 mg/dL (75-110); MAGNESIUM 2.2 mg/dL (1.6-2.3); POTASSIUM 3.3 mmol/L (3.6-5.0); SODIUM 141.6 mmol/L (137-145)
--- NOTE | 2017-07-08 15:42 | RADIOLOGY REPORT (SQ) ---
EXAM DESCRIPTION: CT CHEST WITH COMPLETED DATE/TIME: 07/08/2017 3:12 pm REASON FOR STUDY: fall, L rib, LUQ pain, congested cough COMPARISON: 06/10/2017 TECHNIQUE: CT scan of the chest performed using helical scanning technique with dynamic intravenous contrast injection. Images reviewed with lung, soft tissue and bone windows. Reconstructed coronal and sagittal MPR images reviewed. All images stored on PACS. All CT scanners at this facility use dose modulation, iterative reconstruction, and/or weight based d osing when appropriate to reduce radiation dose to as low as reasonably achievable (ALARA). [facility]: Dose Right [facility]: CareDose [facility]: Dose Right [facility]: Teradose 4D [facility]: [employer] CONTRAST TYPE AND DOSE: See separate report of the same date. RENAL FUNCTION: See separate report of the same date. RADIATION DOSE: Up-to-date CT equipment and radiation dose reduction techniques were employed. CTDIv ol: 15.9 - 20.4 mGy. DLP: 2225 mGy-cm. . LIMITATIONS: None. FINDINGS: LUNGS AND PLEURA: Recently described nodules are stable. Calcified pleural plaque and adj acent scarring left lower lobe. HILAR AND MEDIASTINAL STRUCTURES: No identified masses or abnormal nodes. HEART AND VASCULAR STRUCTURES: No aneurysm or dissection. No central pulmonary emboli. No pericardi al effusion. HARDWARE: CABG. UPPER ABDOMEN: See separate report of the CT of the abdomen. THYROID AND OTHER SOFT TISSUES: No masses. No adenopathy. BONES: No significant finding. OTHER: No other significant finding. IMPRESSION: Stable, chronic changes. Old granulomatous disease. TECHNICAL DOCUMENTATION: JOB ID: [id number] Quality ID # [id number]: Final reports with documentation of one or more dose reduction techniques (e.g., Au tomated exposure control, adjustment of the mA and/or kV according to patient size, use of iterative reconstruction technique) 2010 [employer]- All Rights Reserved
--- NOTE | 2017-07-08 16:12 | RADIOLOGY REPORT (SQ) ---
EXAM DESCRIPTION: CT ABD/PELVIS WITH IV ONLY COMPLETED DATE/TIME: 07/08/2017 3:12 pm REASON FOR STUDY: fall, L rib, LUQ pain, congested cough COMPARISON: CT abdomen pelvis 02/04/2011 CT chest 06/10/2017, 07/08/2017 TECHNIQUE: CT scan of the abdomen and pelvis performed using helical scanning technique with dynamic intravenous contrast injection. No oral contrast. Images reviewed with lung, soft tissue, and bone windows. Reconstructed coronal and sagittal MPR images reviewed. Delayed images for evaluation of the urinary system also acquired. All images stored on PACS. All CT scanners at this facility use dose modulation, iterative reconstruction, and/or weight based d osing when appropriate to reduce radiation dose to as low as reasonably achievable (ALARA). [facility]: Dose Right [facility]: CareDose [facility]: Dose Right [facility]: Teradose 4D [facility]: [employer] CONTRAST TYPE AND DOSE: contrast/concentration: Isovue 370.00 mg/ml; Total Contrast Delivered: 100.0 ml; Total Saline Delivered: 38.5 ml RENAL FUNCTION: Creatinine 1.3 RADIATION DOSE: 20.4 mGy. LIMITATIONS: None. FINDINGS: LOWER CHEST: There are calcific pleural plaques at the left lower hemithorax, and chronic appearing pleural thickening and bandlike left lower lobe scarring, similar compared to CT abdomen an d pelvis 02/04/2011. No new left pleural effusion. There are nodules in the lung bases which are stable compared to CT chest 06/10/2017. LIVER: Normal size. No masses. No dilated ducts. SPLEEN: 13 cm in length. Stable 1.3 cm cyst sub- diaphragmatic surface of the spleen. On coronal wh ole body reconstruction images 41 through 45, a 2 cm long bandlike area of decreased contrast enhance ment is present worrisome for a small splenic laceration. No subcapsular hematoma. No left upper qu adrant free fluid. Findings discussed with Dr. Barrientos. PANCREAS: No masses. No significant calcifications. No adjacent inflammation or peripancreatic fluid collections. Pancreatic duct not dilated. GALLBLADDER: Tiny calcified stone in the gallbladder, no gallbladder wall thickening or pericholecyst ic fluid. ADRENAL GLANDS: No significant masses or asymmetry. RIGHT KIDNEY AND URETER: No solid masses. 5 mm intrarenal nonobstructive lower pole calculus. No hydronephrosis or hydroureter. LEFT KIDNEY AND URETER: No solid masses. 1 cm left midpole renal cortical cyst. 2 mm left lower po le intrarenal nonobstructive stone. No hydronephrosis or hydroureter. AORTA AND VESSELS: Diffuse atherosclerotic disease throughout the abdominal aorta and iliac vessels. Unruptured 5.4 x 5 cm infrarenal abdominal aortic aneurysm. There is heavy atherosclerotic calcific ation at the origins of duplicated right renal arteries, single left renal artery and SMA with at [address] st 50% diameter narrowing of these vessels. Celiac artery, LILIYA patent. 3 cm right common iliac al ry aneurysm. 3.5 x 3 cm left common iliac artery aneurysm with a rind of mural thrombus and irregula r contrast-enhancing lumen. Occluded left internal iliac artery. RETROPERITONEUM: No retroperitoneal adenopathy, hemorrhage or masses. BOWEL AND PERITONEAL CAVITY: No bowel obstruction. No gross free intraperitoneal air or fluid. Desc ending and sigmoid colon diverticuli. APPENDIX: Normal. PELVIS: No mass. No free fluid. Normal bladder. ABDOMINAL WALL: No masses. No hernias. BONES: Multilevel degenerative changes lumbar spine. No acute fracture over the abdomen and pelvis. Question anterior 10th rib fracture, axial image 64, nondisplaced. OTHER: No other significant finding. IMPRESSION: Tiny splenic laceration without subcapsular hematoma or left upper quadrant free fluid. Question nondisplaced fracture anterior left 10th rib. Unruptured 5.4 x 5 cm infrarenal abdominal aortic aneurysm. 3 cm right common iliac artery aneurysm. 3.5 cm left common iliac artery aneurysm. TECHNICAL DOCUMENTATION: JOB ID: [id number] Quality ID # [id number]: Final reports with documentation of one or more dose reduction techniques (e.g., Au tomated exposure control, adjustment of the mA and/or kV according to patient size, use of iterative reconstruction technique) 2010 [employer]- All Rights Reserved
[2017-07-08 16:34] LABS: PROTHROMBIN TIME 19.6 SEC (11.4-15.4)
[2017-07-08] MEDS ORDERED: ACETAMINOPHEN 325 MG TABLET PO PRN (17:22)
[2017-07-08] MEDS ORDERED: ONDANSETRON HCL INJ/PF 4 MG/2 ML SDV IV PRN (17:22)
[2017-07-08] MEDS ORDERED: NITROGLYCERIN 0.4 MG/TAB 25 TAB/BOTTLE SL PRN (17:50)
--- NOTE | 2017-07-08 17:52 | PDOC H&P ---
History of Present Illness Admission Date/PCP: 07/08/2017 Patient complains of: Shortness of breath and left side chest wall pain secondary to fall History of Present Illness: TRUONG PINK is a 76 year old male presents to emergency room with complaint of left side pain that resulted from a fall at home on . Patient states that he lost his balance when he was ambulating and fell. Patient states that he blames his prostatic leg for the reason why he fell. Patient stated that he landed on his left side and since then has had severe pain on his left side. Patient also reports that for approximately a week he has been coughing frequently. Patient states he has been coughing up a chandler phlegm occasionally. reports the patient has not been eating much because of him not feeling well. Past Medical History Cardiac Medical History: Reports: Atrial Fibrillation, Congestive Heart Failure , Coronary Artery Disease, Myocardial Infarction - x6, Hyperlipidema, Hypertension, Peripheral Vascular Disease, Pulmonary Embolism Pulmonary Medical History: Reports: Asthma, Bronchitis, Chronic Obstructive Pulmonary Disease (COPD), Sleep Apnea - without c-pap Denies: Pneumonia, Respiratory Failure, Tuberculosis Neurological Medical History: Denies: Seizures Endocrine Medical History: Reports: Diabetes Mellitus Type 2 Denies: Hyperthyroidism, Hypothyroidism Renal/ Medical History: Denies: End Stage Renal Disease Malignancy Medical History: Denies: Leukemia, Lung Cancer GI Medical History: Reports: Gastroesophageal Reflux Disease Denies: Hepatitis, Hiatal Hernia Musculoskeltal Medical History: Reports: Arthritis Denies: Fibromyalgia Psychiatric Medical History: Denies: Dementia, Depression Hematology: Denies: Anemia, Hemophilia, Sickle Cell Disease Infectious Medical History: Denies: HIV Past Surgical History Past Surgical History: Reports: Cardiac Catheterization, Coronary Artery Bypass Graft - quadruple, Coronary Stent, Internal Defibrillator, Orthopedic Surgery - Left BKA, Pacemaker Denies: Appendectomy, Cholecystectomy, Gastric Bypass Surgery, Herniorrhaphy , Tonsillectomy Social History Lives with: Family Smoking Status: Unknown if Ever Smoked Frequency of Alcohol Use: None Hx Recreational Drug Use: No Drugs: None Hx Prescription Drug Abuse: No Family History Family History: Reviewed & Not Pertinent, CAD, COPD Parental Family History Reviewed: Yes Children Family History Reviewed: Yes Sibling(s) Family History Reviewed.: Yes Medication/Allergy Home Medications: Allopurinol [Zyloprim 300 mg Tablet] 150 mg PO DAILY 06/10/17 Aspirin [Aspirin EC] 81 mg PO DAILY 06/10/17 Atorvastatin Calcium [Lipitor 80 mg Tablet] 80 mg PO QHS 06/10/17 Besifloxacin HCl [Besivance 0.6% Oph Susp 5 ml] 1 drop OS BID 06/10/17 Budesonide/Formoterol Fumarate [Symbicort HFA 160-4.5 mcg Inhaler 6 gm] 2 puff IH Q12 06/10/17 Bumetanide [Bumex 2 mg Tablet] 1 tab PO BID 06/10/17 Cholecalciferol (Vitamin D3) [Vitamin D3] 400 unit PO DAILY 06/10/17 Difluprednate [Durezol] 1 drop OS BID 06/10/17 Docusate Sodium [Colace 100 mg Capsule] 100 mg PO BID 06/10/17 Finasteride [Proscar 5 mg Tablet] 5 mg PO QHS 06/10/17 Hydralazine HCl [Apresoline 25 mg Tablet] 25 mg PO Q12 06/10/17 Hydrocodone Bit/Acetaminophen [Hydrocodon-Acetaminophn 10-325] 1 each PO Q6HP PRN 06/10/17 Insulin Glargine,Hum.rec.anlog [Lantus Solostar] 6 unit SQ QHS 06/10/17 Isosorbide Mononitrate [Isosorbide Mononitrate ER] 90 mg PO DAILY 06/10/17 Magnesium Oxide [Magnesium] 400 mg PO BID 06/10/17 Metolazone [Zaroxolyn 2.5 mg Tablet] 2.5 mg PO MOWEFR@1000 06/10/17 Metoprolol Succinate [Toprol Xl 50 mg Tab.sr] 50 mg PO DAILY 06/10/17 Nepafenac [Ilevro] 1 drop OS DAILY 06/10/17 Nitroglycerin [Nitrostat] 0.4 mg SL Q5MP PRN 06/10/17 Omeprazole 20 mg PO QAM 06/10/17 Pregabalin [Lyrica] 150 mg PO Q12 06/10/17 Ranolazine [Ranexa 500 mg Tab.sr] 1,000 mg PO Q12 06/10/17 Tamsulosin HCl [Flomax 0.4 mg Cap.sr] 0.8 mg PO QHS 06/10/17 Tiotropium [place] [Spiriva Handihaler 5 Cap/Kit (18 Mcg/Cap)] 1 cap IH DAILY Zolpidem Tartrate [Ambien 5 mg Tablet] 5 mg PO HSP PRN 06/10/17 Multivitamin/Iron/Folic Acid [Centrum Adults Tablet] 1 each PO DAILY 06/11/17 Vitamin B Complex [B Complex] 1 each PO DAILY 06/11/17 Levofloxacin [Levaquin 500 mg Tablet] 500 mg PO DAILY #10 tablet 06/14/17 Oxycodone HCl/Acetaminophen [Percocet 5-325 mg Tablet] 1 tab PO Q6HP PRN #12 tablet 06/14/17 Warfarin Sodium 3 mg PO QPM #30 tablet 06/14/17 Allergies/Adverse Reactions: Penicillins Allergy (Unknown, Verified 05/17/17 10:40) vancomycin [Vancomycin] Adverse Reaction (Verified 08/24/16 13:13) Review of Systems Constitutional: PRESENT: weakness Eyes: ABSENT: visual disturbances Ears: ABSENT: hearing changes Cardiovascular: ABSENT: chest pain, dyspnea on exertion, edema, orthropnea, palpitations Respiratory: PRESENT: cough, dyspnea, sputum. ABSENT: hemoptysis Gastrointestinal: ABSENT: abdominal pain, constipation, diarrhea, hematemesis, hematochezia, nausea, vomiting Genitourinary: ABSENT: dysuria, hematuria Musculoskeletal: ABSENT: joint swelling Integumentary: ABSENT: rash, wounds Neurological: ABSENT: abnormal gait, abnormal speech, confusion, dizziness, focal weakness, syncope Psychiatric: ABSENT: anxiety, depression, homidical ideation, suicidal ideation Endocrine: ABSENT: cold intolerance, heat intolerance, polydipsia, polyuria Hematologic/Lymphatic: ABSENT: easy bleeding, easy bruising Physical Exam Vital Signs: Temp Pulse Resp BP Pulse Ox 99.7 F 22 H 120/51 L 94 07/08/17 15:38 07/08/17 16:01 07/08/17 16:01 07/08/17 16:01 General appearance: PRESENT: no acute distress, well-developed, well-nourished Head exam: PRESENT: atraumatic, normocephalic Eye exam: PRESENT: conjunctiva pink, EOMI. ABSENT: scleral icterus Ear exam: PRESENT: normal external ear exam Mouth exam: PRESENT: moist, tongue midline Neck exam: ABSENT: carotid bruit, JVD, lymphadenopathy, thyromegaly Respiratory exam: PRESENT: prolonged expiratory phas, rhonchi, wheezes Cardiovascular exam: PRESENT: RRR. ABSENT: diastolic murmur, rubs, systolic murmur Pulses: PRESENT: normal dorsalis pedis pul Vascular exam: PRESENT: normal capillary refill GI/Abdominal exam: PRESENT: normal bowel sounds, soft. ABSENT: distended, guarding, mass, organolmegaly, rebound, tenderness Rectal exam: PRESENT: deferred Extremities exam: PRESENT: full ROM. ABSENT: calf tenderness, clubbing, pedal edema Musculoskeletal exam: PRESENT: tenderness - Left sided chest wall tenderness to palpation Neurological exam: PRESENT: alert, awake, oriented to person, oriented to place , oriented to time, oriented to situation, CN II-XII grossly intact. ABSENT: motor sensory deficit Psychiatric exam: PRESENT: appropriate affect, normal mood. ABSENT: homicidal ideation, suicidal ideation Skin exam: PRESENT: dry, intact, warm. ABSENT: cyanosis, rash Results Laboratory Results: 07/08/17 14:20 07/08/17 14:20 07/08/17 07/08/17 07/08/17 14:20 14:20 14:35 WBC 9.6 RBC 4.82 Hgb 14.3 Hct 43.2 MCV 90 MCH 29.7 MCHC 33.2 RDW 20.5 H Plt Count 74 L Seg Neutrophils % 78.0 Lymphocytes % 8.7 L Monocytes % 12.4 Eosinophils % 0.6 Basophils % 0.3 Absolute Neutrophils 7.5 Absolute Lymphocytes 0.8 Absolute Monocytes 1.2 Absolute Eosinophils 0.1 Absolute Basophils 0.0 Sodium 141.6 Potassium 3.3 L Chloride 95 L Carbon Dioxide 37 H Anion Gap 10 BUN 58 H Creatinine 1.88 H Est GFR ( Amer) 42 L Est GFR (Non-Af Amer) 35 L Glucose 156 H Lactic Acid 1.6 Calcium 9.2 Magnesium 2.2 Total Bilirubin 1.0 AST 22 ALT 35 Alkaline Phosphatase 148 H Total Protein 7.0 Albumin 3.8 07/08/17 07/08/17 14:20 14:20 Creatine Kinase 22 L Troponin I 0.019 Impressions: Abdomen/Pelvis CT 07/08/17 14:02 IMPRESSION: Tiny splenic laceration without subcapsular hematoma or left upper quadrant free fluid. Question nondisplaced fracture anterior left 10th rib. Unruptured 5.4 x 5 cm infrarenal abdominal aortic aneurysm. 3 cm right common iliac artery aneurysm. 3.5 cm left common iliac artery aneurysm. Chest CT 07/08/17 14:02 IMPRESSION: Stable, chronic changes. Old granulomatous disease. Assessment & Plan - Diagnosis (1) Acute bronchitis Qualifiers: Bronchitis organism: unspecified organism Qualified Code(s): J20.9 - Acute bronchitis, unspecified Is this a current diagnosis for this admission?: Yes Plan: Will place on breathing treatments, steroids, and doxycycline. We will try to obtain sputum sample (2) Left rib fracture Qualifiers: Encounter type: initial encounter Rib fracture type: single rib Fracture type: closed Qualified Code(s): S22.32XA - Fracture of one rib, left side, initial encounter for closed fracture Is this a current diagnosis for this admission?: Yes Plan: We will write for pain medication (3) Splenic laceration Qualifiers: Encounter type: initial encounter Qualified Code(s): S36.039A - Unspecified laceration of spleen, initial encounter Is this a current diagnosis for this admission?: Yes Plan: Pt has been seen by surgery. Medical management no surgical intervention required. Surgery has recommended that patient be off anticoagulation for at least 2 weeks (4) Acute respiratory failure with hypoxia Is this a current diagnosis for this admission?: Yes Plan: We will continue nasal cannula (5) History of pulmonary embolus (PE) Is this a current diagnosis for this admission?: Yes Plan: Patient's INR is 1.5. Surgery recommends patient being off anticoagulation due to splenic laceration. (6) Obesity (BMI 30.0-34.9) Is this a current diagnosis for this admission?: Yes Plan: Encourage dietary changes (7) DVT prophylaxis Is this a current diagnosis for this admission?: Yes Plan: SCDs (8) Subtherapeutic anticoagulation Is this a current diagnosis for this admission?: Yes Plan: Surgery recommends the patient be off anticoagulation due to splenic lack for at least 2 weeks. (9) Debility Is this a current diagnosis for this admission?: Yes Plan: PT OT consult placed - Time Time Spent: 30 to 50 Minutes Medications reviewed and adjusted accordingly: Yes
[2017-07-08] MEDS ORDERED: IPRATROPIUM/ALBUTEROL 0.5-2.5 MG/3 ML AMPUL NEB ONE (18:30)
[2017-07-08] MEDS ORDERED: PREDNISONE 20 MG TABLET PO ONE (18:30)
[2017-07-08] MEDS ORDERED: POTASSIUM CHLORIDE 10 MEQ TABLET.SA PO ONE (18:30)
[2017-07-08] MEDS: IPRATROPIUM/ALBUTEROL 0.5-2.5 MG/3 ML AMPUL NEB SCH (19:33)
[2017-07-08] MEDS: OXYCODONE-ACETAMINOPHEN 5-325 MG TABLET PO PRN (20:24)
--- NOTE | 2017-07-08 21:29 | PDOC CONSULTATION ---
History of Present Illness Admission Date/PCP: 07/08/17 17:22 Patient complains of: Left side pain History of Present Illness: TRUONG PINK is a 76 year old male status post being startled and losing his balance and falling on his left side about a week ago. He denies any loss of consciousness. He denies any hitting to the head nor to his neck. He denies any abdominal pain. He notes pain with deep breaths on the left side. Over the past several days he has had shortness of breath and generalized fatigue and he subsequently came into the emergency room. Patient is on anticoagulation chronically. Past Medical History Cardiac Medical History: Reports: Atrial Fibrillation, Congestive Heart Failure , Coronary Artery Disease, Myocardial Infarction - x6, Hyperlipidema, Hypertension, Peripheral Vascular Disease, Pulmonary Embolism Pulmonary Medical History: Reports: Asthma, Bronchitis, Chronic Obstructive Pulmonary Disease (COPD), Sleep Apnea - without c-pap Denies: Pneumonia, Respiratory Failure, Tuberculosis Neurological Medical History: Denies: Seizures Endocrine Medical History: Reports: Diabetes Mellitus Type 2 Denies: Hyperthyroidism, Hypothyroidism Renal/ Medical History: Denies: End Stage Renal Disease Malignancy Medical History: Denies: Leukemia, Lung Cancer GI Medical History: Reports: Gastroesophageal Reflux Disease Denies: Hepatitis, Hiatal Hernia Musculoskeltal Medical History: Reports: Arthritis Denies: Fibromyalgia Psychiatric Medical History: Denies: Dementia, Depression Hematology: Denies: Anemia, Hemophilia, Sickle Cell Disease Infectious Medical History: Denies: HIV Past Surgical History Past Surgical History: Reports: Cardiac Catheterization, Coronary Artery Bypass Graft - quadruple, Coronary Stent, Internal Defibrillator, Orthopedic Surgery - Left BKA, Pacemaker Denies: Appendectomy, Cholecystectomy, Gastric Bypass Surgery, Herniorrhaphy , Tonsillectomy Social History Lives with: Family Smoking Status: Never Smoker Frequency of Alcohol Use: None Hx Recreational Drug Use: No Drugs: None Hx Prescription Drug Abuse: No - Advance Directive Resuscitation Status: Full Code Family History Family History: Reviewed & Not Pertinent, CAD, COPD Parental Family History Reviewed: No Children Family History Reviewed: No Sibling(s) Family History Reviewed.: No Medication/Allergy Home Medications: Allopurinol [Zyloprim 300 mg Tablet] 150 mg PO DAILY 06/10/17 Aspirin [Aspirin EC] 81 mg PO DAILY 06/10/17 Atorvastatin Calcium [Lipitor 80 mg Tablet] 80 mg PO QHS 06/10/17 Besifloxacin HCl [Besivance 0.6% Oph Susp 5 ml] 1 drop OS BID 06/10/17 Budesonide/Formoterol Fumarate [Symbicort HFA 160-4.5 mcg Inhaler 6 gm] 2 puff IH Q12 06/10/17 Bumetanide [Bumex 2 mg Tablet] 1 tab PO BID 06/10/17 Cholecalciferol (Vitamin D3) [Vitamin D3] 400 unit PO DAILY 06/10/17 Difluprednate [Durezol] 1 drop OS BID 06/10/17 Docusate Sodium [Colace 100 mg Capsule] 100 mg PO BID 06/10/17 Finasteride [Proscar 5 mg Tablet] 5 mg PO QHS 06/10/17 Hydralazine HCl [Apresoline 25 mg Tablet] 25 mg PO Q12 06/10/17 Hydrocodone Bit/Acetaminophen [Hydrocodon-Acetaminophn 10-325] 1 each PO Q6HP PRN 06/10/17 Insulin Glargine,Hum.rec.anlog [Lantus Solostar] 6 unit SQ QHS 06/10/17 Isosorbide Mononitrate [Isosorbide Mononitrate ER] 90 mg PO DAILY 06/10/17 Magnesium Oxide [Magnesium] 400 mg PO BID 06/10/17 Metolazone [Zaroxolyn 2.5 mg Tablet] 2.5 mg PO MOWEFR@1000 06/10/17 Metoprolol Succinate [Toprol Xl 50 mg Tab.sr] 50 mg PO DAILY 06/10/17 Nepafenac [Ilevro] 1 drop OS DAILY 06/10/17 Nitroglycerin [Nitrostat] 0.4 mg SL Q5MP PRN 06/10/17 Omeprazole 20 mg PO QAM 06/10/17 Pregabalin [Lyrica] 150 mg PO Q12 06/10/17 Ranolazine [Ranexa 500 mg Tab.sr] 1,000 mg PO Q12 06/10/17 Tamsulosin HCl [Flomax 0.4 mg Cap.sr] 0.8 mg PO QHS 06/10/17 Tiotropium [place] [Spiriva Handihaler 5 Cap/Kit (18 Mcg/Cap)] 1 cap IH DAILY Zolpidem Tartrate [Ambien 5 mg Tablet] 5 mg PO HSP PRN 06/10/17 Multivitamin/Iron/Folic Acid [Centrum Adults Tablet] 1 each PO DAILY 06/11/17 Vitamin B Complex [B Complex] 1 each PO DAILY 06/11/17 Levofloxacin [Levaquin 500 mg Tablet] 500 mg PO DAILY #10 tablet 06/14/17 Oxycodone HCl/Acetaminophen [Percocet 5-325 mg Tablet] 1 tab PO Q6HP PRN #12 tablet 06/14/17 Warfarin Sodium 3 mg PO QPM #30 tablet 06/14/17 Allergies/Adverse Reactions: Penicillins Allergy (Unknown, Verified 05/17/17 10:40) vancomycin [Vancomycin] Adverse Reaction (Verified 08/24/16 13:13) Physical Exam Vital Signs: Temp Pulse Resp BP Pulse Ox 99.4 F 63 19 120/49 L 63 L 07/08/17 20:40 07/08/17 20:40 07/08/17 20:40 07/08/17 20:40 07/08/17 20:40 Intake & Output 07/07/17 07/08/17 07/09/17 06:59 06:59 06:59 Weight 96.162 kg General appearance: PRESENT: no acute distress, cooperative Head exam: PRESENT: atraumatic Eye exam: PRESENT: conjunctiva pink Neck exam: PRESENT: other - Supple with no tenderness Respiratory exam: PRESENT: prolonged expiratory phas, wheezes, other - Bruising at his left side just below his rib with tenderness but no crepitus. Cardiovascular exam: PRESENT: RRR GI/Abdominal exam: PRESENT: other - Soft, nondistended, nontender to palpation. Extremities exam: PRESENT: other - Left [id number] amputation with prosthetic leg. No hip tenderness. No bruising at the pelvis. Neurological exam: PRESENT: alert, awake, oriented to situation Psychiatric exam: PRESENT: appropriate affect Skin exam: PRESENT: warm Results Impressions: Abdomen/Pelvis CT 07/08/17 14:02 IMPRESSION: Tiny splenic laceration without subcapsular hematoma or left upper quadrant free fluid. Question nondisplaced fracture anterior left 10th rib. Unruptured 5.4 x 5 cm infrarenal abdominal aortic aneurysm. 3 cm right common iliac artery aneurysm. 3.5 cm left common iliac artery aneurysm. Chest CT 07/08/17 14:02 IMPRESSION: Stable, chronic changes. Old granulomatous disease. Assessment & Plan - Diagnosis (1) Left rib fracture Qualifiers: Encounter type: initial encounter Rib fracture type: single rib Fracture type: closed Qualified Code(s): S22.32XA - Fracture of one rib, left side, initial encounter for closed fracture Is this a current diagnosis for this admission?: Yes Plan: Nothing to be done surgically. No pneumothorax. Treat underlying lung disease and pulmonary toilet. (2) Splenic laceration Qualifiers: Encounter type: initial encounter Qualified Code(s): S36.039A - Unspecified laceration of spleen, initial encounter Is this a current diagnosis for this admission?: Yes Plan: Hemodynamically stable and likely has clotted off. Patient is on anticoagulation but subtherapeutic. Recommend keeping the patient off of anticoagulation for at least 2 weeks. Preferably 4 weeks but understandable if he needs to go back on it sooner due to high risk for thrombotic complications.
[2017-07-08] MEDS: PREGABALIN 75 MG CAPSULE PO SCH (22:30)
[2017-07-08] MEDS: TAMSULOSIN HCL 0.4 MG CAP.SR.24H PO SCH (22:30)
[2017-07-08] MEDS: FINASTERIDE 5 MG TABLET PO SCH (22:31)
[2017-07-08] MEDS: HYDRALAZINE HCL 25 MG TABLET PO SCH (22:31)
[2017-07-08] MEDS: RANOLAZINE 500 MG TAB.SR.12H PO SCH (22:32)
[2017-07-08] MEDS: DOXYCYCLINE HYCLATE 100 MG in DEXTROSE 5%-WATER 250 ML IV SCH (22:32)
[2017-07-08] MEDS: BUDESONIDE/FORMOTEROL 160-4.5 MCG 60 PUFF/6 GM MDI IH SCH (22:32)
[2017-07-08] MEDS: ATORVASTATIN CALCIUM 80 MG TABLET PO SCH (22:32)
[2017-07-08] MEDS: ZOLPIDEM TARTRATE 5 MG TABLET PO PRN (23:31)
[2017-07-09] MEDS: IPRATROPIUM/ALBUTEROL 0.5-2.5 MG/3 ML AMPUL NEB SCH ×4 (02:02→19:57)
[2017-07-09] MEDS: LANSOPRAZOLE 30 MG TAB.RAP.DR PO SCH (05:23)
[2017-07-09] MEDS: OXYCODONE-ACETAMINOPHEN 5-325 MG TABLET PO PRN ×4 (05:23→21:52)
[2017-07-09 05:33] LABS: APPEARANCE,URINE CLEAR; BILIRUBIN,URINE NEGATIVE (NEGATIVE); GLUCOSE, URINE 150 mg/dL (NEGATIVE); KETONES,URINE NEGATIVE (NEGATIVE); LEUKOCYTE ESTERASE,URINE NEGATIVE (NEGATIVE); NITRITE,URINE NEGATIVE (NEGATIVE); PROTEIN,URINE 100 mg/dL (NEGATIVE); URINE SPECIFIC GRAVITY 1.033; UROBILINOGEN,URINE NEGATIVE mg/dL (<2.0)
[2017-07-09 06:37] LABS: ABSOLUTE LYMPHOCYTES (AUTO) 0.7 10^3/uL (0.5-4.7); ABSOLUTE MONOCYTES (AUTO) 0.3 10^3/uL (0.1-1.4); ABSOLUTE NEUT (AUTO) 6.9 10^3/uL (1.7-8.2); BASOPHILS % (AUTO) 0.5 % (0-2); EOSINOPHILS % (AUTO) 0.1 % (0-6); HEMOGLOBIN 13.6 g/dL (13.5-17.0); HGB HCT DIFFERENCE -0.2; LYMPHOCYTES % (AUTO) 8.4 % (13-45); MEAN CORPUSCULAR HEMOGLOBIN 30.1 pg (27.0-33.4); MEAN CORPUSCULAR HGB CONC 33.3 g/dL (32.0-36.0); MEAN CORPUSCULAR VOLUME 90 fl (80-97); MONOCYTES % (AUTO) 4.1 % (3-13); RED BLOOD COUNT 4.54 10^6/uL (4.35-5.55); RED CELL DISTRIBUTION WIDTH 20.5 % (11.5-14.0); SEGMENTED NEUTROPHILS % (AUTO) 86.9 % (42-78); WHITE BLOOD COUNT 7.9 10^3/uL (4.0-10.5)
[2017-07-09 06:39] LABS: PROTHROMBIN TIME 20.8 SEC (11.4-15.4)
[2017-07-09 06:44] LABS: ALANINE AMINOTRANSFERASE 30 U/L (21-72); ALBUMIN 3.7 g/dL (3.5-5.0); ALKALINE PHOSPHATASE 130 U/L (38-126); ANION GAP 9 (5-19); ASPARTATE AMINO TRANSFERASE 23 U/L (17-59); BILIRUBIN,DIRECT 0.6 mg/dL (0.0-0.4); BILIRUBIN,TOTAL 0.8 mg/dL (0.2-1.3); BLOOD UREA NITROGEN 65 mg/dL (7-20); CALCIUM 8.7 mg/dL (8.4-10.2); CARBON DIOXIDE 35 mmol/L (22-30); CHLORIDE 94 mmol/L (98-107); CREATININE RESULT 2.21 mg/dL (0.52-1.25); GLUCOSE 272 mg/dL (75-110); POTASSIUM 4.1 mmol/L (3.6-5.0); SODIUM 137.6 mmol/L (137-145)
[2017-07-09] MEDS: PREGABALIN 75 MG CAPSULE PO SCH ×2 (09:54→21:51)
[2017-07-09] MEDS: PREDNISONE 20 MG TABLET PO SCH (09:57)
[2017-07-09] MEDS: TIOTROPIUM BROMIDE DPI 5 CAP/KIT (18 MCG/CAP) IH SCH (10:12)
[2017-07-09] MEDS: BUDESONIDE/FORMOTEROL 160-4.5 MCG 60 PUFF/6 GM MDI IH SCH ×2 (10:13→21:51)
[2017-07-09] MEDS: HYDRALAZINE HCL 25 MG TABLET PO SCH ×2 (10:19→21:50)
[2017-07-09] MEDS: ISOSORBIDE MONONITRATE 30 MG TAB.ER.24H PO SCH (10:19)
[2017-07-09] MEDS: METOPROLOL SUCCINATE 50 MG TAB.SR.24H PO SCH (10:19)
[2017-07-09] MEDS: DOXYCYCLINE HYCLATE 100 MG in DEXTROSE 5%-WATER 250 ML IV SCH ×2 (10:27→21:50)
--- NOTE | 2017-07-09 11:12 | EKG REPORT ---
SEVERITY:- ABNORMAL ECG - ATRIAL-PACED RHYTHM NONSPECIFIC INTRAVENTRICULAR CONDUCTION DELAY INFERIOR INFARCT, AGE INDETERMINATE CONSIDER ANTERIOR INFARCT LATERAL LEADS ARE ALSO INVOLVED : Confirmed by: Natalie Biggs MD 09-Jul-2017 11:12:24
--- NOTE | 2017-07-09 12:05 | PDOC PROGRESS REPORT ---
Subjective Progress Note for:: 07/09/17 Subjective:: Left upper quadrant pains Physical Exam Vital Signs: Temp Pulse Resp BP Pulse Ox 98.7 F 64 18 130/73 H 94 07/08/17 23:03 07/09/17 07:46 07/09/17 07:46 07/08/17 23:03 07/09/17 07:46 Intake & Output 07/08/17 07/09/17 07/10/17 06:59 06:59 06:59 Intake Total 740 Output Total 0 Balance 740 Weight 96.162 kg Exam: Is continuous still operator at the left upper quadrant close to the 10th rib. His vital signs are stable however. GI/Abdominal exam: PRESENT: soft, tenderness - Tenderness in the left upper quadrant Results Laboratory Results: 07/09/17 05:58 07/09/17 05:58 07/09/17 07/09/17 07/09/17 05:15 05:58 05:58 WBC 7.9 RBC 4.54 Hgb 13.6 Hct 41.0 MCV 90 MCH 30.1 MCHC 33.3 RDW 20.5 H Plt Count 65 L Seg Neutrophils % 86.9 H Lymphocytes % 8.4 L Monocytes % 4.1 Eosinophils % 0.1 Basophils % 0.5 Absolute Neutrophils 6.9 Absolute Lymphocytes 0.7 Absolute Monocytes 0.3 Absolute Eosinophils 0.0 Absolute Basophils 0.0 Sodium 137.6 Potassium 4.1 Chloride 94 L Carbon Dioxide 35 H Anion Gap 9 BUN 65 H Creatinine 2.21 H Est GFR ( Amer) 35 L Est GFR (Non-Af Amer) 29 L Glucose 272 H Calcium 8.7 Total Bilirubin 0.8 AST 23 ALT 30 Alkaline Phosphatase 130 H Total Protein 7.0 Albumin 3.7 Urine Color YELLOW Urine Appearance CLEAR Urine pH 5.0 Ur Specific [place] 1.033 Urine Protein 100 H Urine Glucose (UA) 150 H Urine Ketones NEGATIVE Urine Blood NEGATIVE Urine Nitrite NEGATIVE Ur Leukocyte Esterase NEGATIVE Urine WBC (Auto) 2 Urine RBC (Auto) 3 Impressions: Abdomen/Pelvis CT 07/08/17 14:02 IMPRESSION: Tiny splenic laceration without subcapsular hematoma or left upper quadrant free fluid. Question nondisplaced fracture anterior left 10th rib. Unruptured 5.4 x 5 cm infrarenal abdominal aortic aneurysm. 3 cm right common iliac artery aneurysm. 3.5 cm left common iliac artery aneurysm. Chest CT 07/08/17 14:02 IMPRESSION: Stable, chronic changes. Old granulomatous disease. Assessment & Plan - Diagnosis (1) Acute bronchitis Qualifiers: Bronchitis organism: unspecified organism Qualified Code(s): J20.9 - Acute bronchitis, unspecified Is this a current diagnosis for this admission?: Yes (3) Contusion of rib on left side Qualifiers: Encounter type: initial encounter Qualified Code(s): S20.212A - Contusion of left front wall of thorax, initial encounter Is this a current diagnosis for this admission?: Yes (4) Debility Is this a current diagnosis for this admission?: Yes (5) Inadequate anticoagulation Is this a current diagnosis for this admission?: Yes (6) Left rib fracture Qualifiers: Encounter type: initial encounter Rib fracture type: single rib Fracture type: closed Qualified Code(s): S22.32XA - Fracture of one rib, left side, initial encounter for closed fracture Is this a current diagnosis for this admission?: Yes (7) Splenic laceration Qualifiers: Encounter type: subsequent encounter Qualified Code(s): S36.039D - Unspecified laceration of spleen, subsequent encounter Is this a current diagnosis for this admission?: Yes - Time Time Spent with patient: 15-24 minutes - Plan Summary Plan Summary: Continue with observation serial CBC Continue monitoring vital signs Continue hold warfarin for at least 2 weeks
[2017-07-09] MEDS: RANOLAZINE 500 MG TAB.SR.12H PO SCH ×2 (14:19→21:50)
--- NOTE | 2017-07-09 15:28 | PDOC PROGRESS REPORT ---
Subjective Progress Note for:: 07/09/17 Subjective:: Patient states that he is coughing of phlegm. Patient requested that he have a bigger room for his guest and that he be given a booster of morphine. Physical Exam Vital Signs: Temp Pulse Resp BP Pulse Ox 97.6 F 66 16 149/49 H 94 07/09/17 11:26 07/09/17 14:00 07/09/17 14:00 07/09/17 11:26 07/09/17 14:00 Intake & Output 07/08/17 07/09/17 07/10/17 06:59 06:59 06:59 Intake Total 740 Output Total 0 Balance 740 Weight 96.162 kg General appearance: PRESENT: no acute distress, well-developed, well-nourished Head exam: PRESENT: atraumatic, normocephalic Eye exam: PRESENT: conjunctiva pink, EOMI. ABSENT: scleral icterus Ear exam: PRESENT: normal external ear exam Mouth exam: PRESENT: moist, tongue midline Neck exam: ABSENT: carotid bruit, JVD, lymphadenopathy, thyromegaly Respiratory exam: PRESENT: accessory muscle use, prolonged expiratory phas, rhonchi, wheezes Cardiovascular exam: PRESENT: RRR. ABSENT: diastolic murmur, rubs, systolic murmur Pulses: PRESENT: normal dorsalis pedis pul Vascular exam: PRESENT: normal capillary refill GI/Abdominal exam: PRESENT: normal bowel sounds, soft. ABSENT: distended, guarding, mass, organolmegaly, rebound, tenderness Rectal exam: PRESENT: deferred Extremities exam: PRESENT: full ROM. ABSENT: calf tenderness, clubbing, pedal edema Neurological exam: PRESENT: alert, awake, oriented to person, oriented to place , oriented to time, oriented to situation, CN II-XII grossly intact. ABSENT: motor sensory deficit Psychiatric exam: PRESENT: appropriate affect, normal mood. ABSENT: homicidal ideation, suicidal ideation Skin exam: PRESENT: dry, intact, warm. ABSENT: cyanosis, rash Results Laboratory Results: 07/09/17 05:58 07/09/17 05:58 07/09/17 07/09/17 07/09/17 05:15 05:58 05:58 WBC 7.9 RBC 4.54 Hgb 13.6 Hct 41.0 MCV 90 MCH 30.1 MCHC 33.3 RDW 20.5 H Plt Count 65 L Seg Neutrophils % 86.9 H Lymphocytes % 8.4 L Monocytes % 4.1 Eosinophils % 0.1 Basophils % 0.5 Absolute Neutrophils 6.9 Absolute Lymphocytes 0.7 Absolute Monocytes 0.3 Absolute Eosinophils 0.0 Absolute Basophils 0.0 Sodium 137.6 Potassium 4.1 Chloride 94 L Carbon Dioxide 35 H Anion Gap 9 BUN 65 H Creatinine 2.21 H Est GFR ( Amer) 35 L Est GFR (Non-Af Amer) 29 L Glucose 272 H Calcium 8.7 Total Bilirubin 0.8 AST 23 ALT 30 Alkaline Phosphatase 130 H Total Protein 7.0 Albumin 3.7 Urine Color YELLOW Urine Appearance CLEAR Urine pH 5.0 Ur Specific [place] 1.033 Urine Protein 100 H Urine Glucose (UA) 150 H Urine Ketones NEGATIVE Urine Blood NEGATIVE Urine Nitrite NEGATIVE Ur Leukocyte Esterase NEGATIVE Urine WBC (Auto) 2 Urine RBC (Auto) 3 Impressions: Abdomen/Pelvis CT 07/08/17 14:02 IMPRESSION: Tiny splenic laceration without subcapsular hematoma or left upper quadrant free fluid. Question nondisplaced fracture anterior left 10th rib. Unruptured 5.4 x 5 cm infrarenal abdominal aortic aneurysm. 3 cm right common iliac artery aneurysm. 3.5 cm left common iliac artery aneurysm. Chest CT 07/08/17 14:02 IMPRESSION: Stable, chronic changes. Old granulomatous disease. Assessment & Plan - Diagnosis (1) Acute bronchitis Qualifiers: Bronchitis organism: unspecified organism Qualified Code(s): J20.9 - Acute bronchitis, unspecified Is this a current diagnosis for this admission?: Yes Plan: Breathing treatments, steroids, and doxycycline. Sputum sample pending. (2) Acute kidney injury superimposed on CKD Is this a current diagnosis for this admission?: Yes Plan: in setting CKD Stage 3: Will given NS Bolus 500cc. Will check renal function. (3) Left rib fracture Qualifiers: Encounter type: initial encounter Rib fracture type: single rib Fracture type: closed Qualified Code(s): S22.32XA - Fracture of one rib, left side, initial encounter for closed fracture Is this a current diagnosis for this admission?: Yes Plan: Will continue pain medication (4) Splenic laceration Qualifiers: Encounter type: subsequent encounter Qualified Code(s): S36.039D - Unspecified laceration of spleen, subsequent encounter Is this a current diagnosis for this admission?: Yes Plan: Pt has been seen by surgery. Medical management no surgical intervention required. Surgery has recommended that patient be off anticoagulation for at least 2 weeks (5) Acute respiratory failure with hypoxia Is this a current diagnosis for this admission?: Yes Plan: We will continue nasal cannula (6) History of pulmonary embolus (PE) Is this a current diagnosis for this admission?: Yes Plan: Patient's INR is 1.5. Surgery recommends patient being off anticoagulation due to splenic laceration. (7) Obesity (BMI 30.0-34.9) Is this a current diagnosis for this admission?: Yes Plan: Encourage dietary changes (8) Subtherapeutic anticoagulation Is this a current diagnosis for this admission?: Yes Plan: Surgery recommends the patient be off anticoagulation due to splenic lack for at least 2 weeks. Will continue to monitor INR. (9) Debility Is this a current diagnosis for this admission?: Yes Plan: PT OT consult placed (10) DVT prophylaxis Is this a current diagnosis for this admission?: Yes Plan: SCDs - Time Time Spent with patient: 15-24 minutes - Inpatient Certification Medical Necessity: Need for Nebulizer Therapy and Monitoring of Response, Need for Pain Control, Need for IV Antibiotics
[2017-07-09] MEDS ORDERED: NORMAL SALINE 1000 ML 500 ML IV ONE (16:00)
[2017-07-09] MEDS: ATORVASTATIN CALCIUM 80 MG TABLET PO SCH (21:50)
[2017-07-09] MEDS: TAMSULOSIN HCL 0.4 MG CAP.SR.24H PO SCH (21:51)
[2017-07-09] MEDS: FINASTERIDE 5 MG TABLET PO SCH (21:51)
[2017-07-10] MEDS: ZOLPIDEM TARTRATE 5 MG TABLET PO PRN (00:24)
[2017-07-10] MEDS: IPRATROPIUM/ALBUTEROL 0.5-2.5 MG/3 ML AMPUL NEB SCH ×4 (02:06→20:42)
[2017-07-10 05:31] LABS: HEMATOCRIT 38.5 % (37.9-51.0); HEMOGLOBIN 12.4 g/dL (13.5-17.0); HGB HCT DIFFERENCE -1.3; MEAN CORPUSCULAR HEMOGLOBIN 29.3 pg (27.0-33.4); MEAN CORPUSCULAR HGB CONC 32.3 g/dL (32.0-36.0); MEAN CORPUSCULAR VOLUME 91 fl (80-97); RED BLOOD COUNT 4.24 10^6/uL (4.35-5.55); RED CELL DISTRIBUTION WIDTH 20.1 % (11.5-14.0); WHITE BLOOD COUNT 9.7 10^3/uL (4.0-10.5)
[2017-07-10 05:40] LABS: ANION GAP 12 (5-19); BLOOD UREA NITROGEN 72 mg/dL (7-20); CALCIUM 8.4 mg/dL (8.4-10.2); CARBON DIOXIDE 30 mmol/L (22-30); CHLORIDE 93 mmol/L (98-107); MAGNESIUM 2.3 mg/dL (1.6-2.3); POTASSIUM 4.3 mmol/L (3.6-5.0); SODIUM 134.8 mmol/L (137-145)
[2017-07-10] MEDS: LANSOPRAZOLE 30 MG TAB.RAP.DR PO SCH (06:00)
[2017-07-10 06:06] LABS: GLUCOSE 540 mg/dL (75-110)
[2017-07-10 06:11] LABS: ANISOCYTOSIS 2+; BAND NEUTROPHILS % (MANUAL) 1 % (3-5); BASOPHILS % (MANUAL) 0 % (0-2); EOSINOPHILS % (MANUAL) 0 % (0-6); LYMPHOCYTES % (MANUAL) 5 % (13-45); NUCLEATED RED BLOOD CELLS 1 /100 WBC (0); OVALOCYTES SLIGHT; POIKILOCYTOSIS SLIGHT; POLYCHROMASIA SLIGHT; TARGET CELLS SLIGHT; TEAR DROP CELLS SLIGHT; TOTAL CELLS COUNTED 100; TOXIC GRANULATION SLIGHT; TOXIC VACUOLATION PRESENT
[2017-07-10] MEDS ORDERED: DEXTROSE 50%-WATER 25 GM/50 ML DISP.SYRIN IV PRN ×2 (06:51)
[2017-07-10] MEDS ORDERED: GLUCAGON,HUMAN RECOMB 1 MG INJ IM PRN (06:51)
[2017-07-10] MEDS ORDERED: DEXTROSE 40% GEL 15 GM TUBE PO PRN ×2 (06:51)
[2017-07-10] MEDS ORDERED: AZITHROMYCIN INJ 500 MG VIAL IV ONE (07:53)
[2017-07-10] MEDS ORDERED: INSULIN GLARGINE,HUM.REC.ANLOG 1,000 UNIT/10 ML UNIT SUBCUT SCH (08:00)
[2017-07-10] MEDS: OXYCODONE-ACETAMINOPHEN 5-325 MG TABLET PO PRN ×4 (08:04→23:14)
[2017-07-10] MEDS: NORMAL SALINE 1000 ML 1,000 ML IV PRN (08:38)
[2017-07-10] MEDS: INSULIN LISPRO 100 UNIT/ML 3 ML VIAL SUBCUT SCH ×3 (08:50→16:32)
[2017-07-10] MEDS: INSULIN LISPRO 100 UNIT/ML 3 ML VIAL SUBCUT PRN ×4 (08:50→21:23)
[2017-07-10] MEDS: ASPIRIN 81 MG TABLET, ENT COATED PO SCH (08:53)
[2017-07-10] MEDS: PREDNISONE 20 MG TABLET PO SCH (08:53)
[2017-07-10] MEDS: PREGABALIN 75 MG CAPSULE PO SCH ×2 (08:54→21:23)
[2017-07-10] MEDS: CEFTRIAXONE 1 GM/D5W RTU 1 GM/50 ML RTUPB IV SCH (09:22)
[2017-07-10] MEDS: TIOTROPIUM BROMIDE DPI 5 CAP/KIT (18 MCG/CAP) IH SCH (09:29)
[2017-07-10] MEDS: BUDESONIDE/FORMOTEROL 160-4.5 MCG 60 PUFF/6 GM MDI IH SCH ×2 (09:30→21:28)
[2017-07-10] MEDS: HYDRALAZINE HCL 25 MG TABLET PO SCH ×2 (09:37→21:23)
[2017-07-10] MEDS: ISOSORBIDE MONONITRATE 30 MG TAB.ER.24H PO SCH (09:37)
[2017-07-10] MEDS: METOPROLOL SUCCINATE 50 MG TAB.SR.24H PO SCH (09:37)
[2017-07-10] MEDS ORDERED: INSULIN GLARGINE,HUM.REC.ANLOG 300 UNIT/3 ML INSULN.PEN SUBCUT ONE (10:00)
[2017-07-10] MEDS: RANOLAZINE 500 MG TAB.SR.12H PO SCH ×2 (12:27→21:26)
[2017-07-10] MEDS: AZITHROMYCIN 500 MG in DEXTROSE 5%-WATER 250 ML IV SCH (12:30)
--- NOTE | 2017-07-10 12:31 | PDOC PROGRESS REPORT ---
Subjective Progress Note for:: 07/10/17 Subjective:: She states that his breathing has improved. Patient states he is coughing up more phlegm does not feel as short of breath. Nursing reports the patient's blood pressure has been on the low side. Physical Exam Vital Signs: Temp Pulse Resp BP Pulse Ox 98.0 F 96 16 116/66 96 07/10/17 07:56 07/10/17 07:56 07/10/17 07:56 07/10/17 07:56 07/10/17 07:56 Intake & Output 07/09/17 07/10/17 07/11/17 06:59 06:59 06:59 Intake Total 740 1540 Output Total 0 Balance 740 1540 Weight 96.162 kg 96.162 kg General appearance: PRESENT: no acute distress, well-developed, well-nourished Head exam: PRESENT: atraumatic, normocephalic Eye exam: PRESENT: conjunctiva pink, EOMI. ABSENT: scleral icterus Ear exam: PRESENT: normal external ear exam Mouth exam: PRESENT: moist, tongue midline Neck exam: ABSENT: carotid bruit, JVD, lymphadenopathy, thyromegaly Respiratory exam: PRESENT: other - Prolonged expiratory phase with wheezing and accessory muscle use patient with rhonchi heard Cardiovascular exam: PRESENT: RRR. ABSENT: diastolic murmur, rubs, systolic murmur Pulses: PRESENT: normal dorsalis pedis pul Vascular exam: PRESENT: normal capillary refill GI/Abdominal exam: PRESENT: normal bowel sounds, soft. ABSENT: distended, guarding, mass, organolmegaly, rebound, tenderness Rectal exam: PRESENT: deferred Extremities exam: PRESENT: full ROM. ABSENT: calf tenderness, clubbing, pedal edema Neurological exam: PRESENT: alert, awake, oriented to person, oriented to place , oriented to time, oriented to situation, CN II-XII grossly intact. ABSENT: motor sensory deficit Psychiatric exam: PRESENT: appropriate affect, normal mood. ABSENT: homicidal ideation, suicidal ideation Skin exam: PRESENT: dry, intact, warm. ABSENT: cyanosis, rash Results Laboratory Results: 07/10/17 04:03 07/10/17 04:03 07/10/17 07/10/17 04:03 04:03 WBC 9.7 RBC 4.24 L Hgb 12.4 L Hct 38.5 MCV 91 MCH 29.3 MCHC 32.3 RDW 20.1 H Plt Count 59 L Seg Neutrophils % Not Reportable Lymphocytes % Not Reportable Monocytes % Not Reportable Eosinophils % Not Reportable Basophils % Not Reportable Absolute Neutrophils Not Reportable Absolute Lymphocytes Not Reportable Absolute Monocytes Not Reportable Absolute Eosinophils Not Reportable Absolute Basophils Not Reportable Sodium 134.8 L Potassium 4.3 Chloride 93 L Carbon Dioxide 30 Anion Gap 12 BUN 72 H Creatinine 2.50 H Est GFR ( Amer) 30 L Est GFR (Non-Af Amer) 25 L Glucose 540 H* Calcium 8.4 Magnesium 2.3 Impressions: Abdomen/Pelvis CT 07/08/17 14:02 IMPRESSION: Tiny splenic laceration without subcapsular hematoma or left upper quadrant free fluid. Question nondisplaced fracture anterior left 10th rib. Unruptured 5.4 x 5 cm infrarenal abdominal aortic aneurysm. 3 cm right common iliac artery aneurysm. 3.5 cm left common iliac artery aneurysm. Chest CT 07/08/17 14:02 IMPRESSION: Stable, chronic changes. Old granulomatous disease. Assessment & Plan - Diagnosis (1) Acute bronchitis Qualifiers: Bronchitis organism: unspecified organism Qualified Code(s): J20.9 - Acute bronchitis, unspecified Is this a current diagnosis for this admission?: Yes Plan: We will discontinue the doxycycline. Will place patient on Rocephin and Zithromax. Antibiotic changes due to patient's worsening renal function. (2) Acute kidney injury superimposed on CKD Is this a current diagnosis for this admission?: Yes Plan: In setting of chronic kidney disease stage III: We will discontinue doxycycline. Will put parameters on patient's blood pressure. We will continue IV fluids. (3) Diabetes type 2, uncontrolled Qualifiers: Diabetes mellitus complication status: with circulatory complication Is this a current diagnosis for this admission?: Yes Plan: Patient on sliding scale insulin. Mealtime insulin added and long-acting insulin added. Will monitor Accu-Cheks. (4) Left rib fracture Qualifiers: Encounter type: initial encounter Rib fracture type: single rib Fracture type: closed Qualified Code(s): S22.32XA - Fracture of one rib, left side, initial encounter for closed fracture Is this a current diagnosis for this admission?: Yes Plan: Will continue pain medication (5) Splenic laceration Qualifiers: Encounter type: subsequent encounter Qualified Code(s): S36.039D - Unspecified laceration of spleen, subsequent encounter Is this a current diagnosis for this admission?: Yes Plan: Pt has been seen by surgery. Medical management no surgical intervention required. Surgery has recommended that patient be off anticoagulation for at least 2 weeks. Will check INR in a.m. (6) Acute respiratory failure with hypoxia Is this a current diagnosis for this admission?: Yes Plan: We will continue nasal cannula. Patient's breathing is improving. Will reassess in a.m. (7) History of pulmonary embolus (PE) Is this a current diagnosis for this admission?: Yes Plan: Patient's INR is 1.6. Surgery recommends patient being off anticoagulation due to splenic laceration. (8) Obesity (BMI 30.0-34.9) Is this a current diagnosis for this admission?: Yes Plan: Encourage dietary changes (9) Subtherapeutic anticoagulation Is this a current diagnosis for this admission?: Yes Plan: Surgery recommends the patient be off anticoagulation due to splenic lack for at least 2 weeks. Will check INR in a.m. (10) Debility Is this a current diagnosis for this admission?: Yes Plan: PT OT consult placed (11) DVT prophylaxis Is this a current diagnosis for this admission?: Yes Plan: SCDs - Time Time Spent with patient: 15-24 minutes Anticipated discharge: Home
[2017-07-10] MEDS: MORPHINE SULFATE 10 MG/ML INJ IV PRN (13:20)
--- NOTE | 2017-07-10 18:10 | PDOC PROGRESS REPORT ---
Physical Exam Vital Signs: Temp Pulse Resp BP Pulse Ox 97.7 F 62 17 119/47 L 99 07/10/17 11:52 07/10/17 14:33 07/10/17 14:33 07/10/17 11:52 07/10/17 11:52 Intake & Output 07/09/17 07/10/17 07/11/17 06:59 06:59 06:59 Intake Total 740 1540 Output Total 0 Balance 740 1540 Weight 96.162 kg 96.162 kg Exam: Abdomen is soft and with just minimal tenderness in the left upper quadrant. Patient has been complaining of nausea but still able to tolerate his diet. Results Laboratory Results: 07/10/17 04:03 07/10/17 04:03 07/10/17 07/10/17 04:03 04:03 WBC 9.7 RBC 4.24 L Hgb 12.4 L Hct 38.5 MCV 91 MCH 29.3 MCHC 32.3 RDW 20.1 H Plt Count 59 L Seg Neutrophils % Not Reportable Lymphocytes % Not Reportable Monocytes % Not Reportable Eosinophils % Not Reportable Basophils % Not Reportable Absolute Neutrophils Not Reportable Absolute Lymphocytes Not Reportable Absolute Monocytes Not Reportable Absolute Eosinophils Not Reportable Absolute Basophils Not Reportable Sodium 134.8 L Potassium 4.3 Chloride 93 L Carbon Dioxide 30 Anion Gap 12 BUN 72 H Creatinine 2.50 H Est GFR ( Amer) 30 L Est GFR (Non-Af Amer) 25 L Glucose 540 H* Calcium 8.4 Magnesium 2.3 Impressions: Abdomen/Pelvis CT 07/08/17 14:02 IMPRESSION: Tiny splenic laceration without subcapsular hematoma or left upper quadrant free fluid. Question nondisplaced fracture anterior left 10th rib. Unruptured 5.4 x 5 cm infrarenal abdominal aortic aneurysm. 3 cm right common iliac artery aneurysm. 3.5 cm left common iliac artery aneurysm. Chest CT 07/08/17 14:02 IMPRESSION: Stable, chronic changes. Old granulomatous disease. Assessment & Plan - Diagnosis (1) Acute bronchitis Qualifiers: Bronchitis organism: unspecified organism Qualified Code(s): J20.9 - Acute bronchitis, unspecified Is this a current diagnosis for this admission?: Yes (3) Contusion of rib on left side Qualifiers: Encounter type: initial encounter Qualified Code(s): S20.212A - Contusion of left front wall of thorax, initial encounter Is this a current diagnosis for this admission?: Yes (4) Debility Is this a current diagnosis for this admission?: Yes (5) Inadequate anticoagulation Is this a current diagnosis for this admission?: Yes (6) Left rib fracture Qualifiers: Encounter type: initial encounter Rib fracture type: single rib Fracture type: closed Qualified Code(s): S22.32XA - Fracture of one rib, left side, initial encounter for closed fracture Is this a current diagnosis for this admission?: Yes (7) Splenic laceration Qualifiers: Encounter type: subsequent encounter Qualified Code(s): S36.039D - Unspecified laceration of spleen, subsequent encounter Is this a current diagnosis for this admission?: Yes Plan: Continue daily H&H - Time Time Spent with patient: 15-24 minutes - Plan Summary Plan Summary: #1 continue serial physical examination 2. Continue serial H&H and platelets with this appears to have gone down to about 6 59,000 this morning and monitoring of vital signs. Hemoglobin is fairly stable at this time but needs to continue monitoring.
[2017-07-10] MEDS: ATORVASTATIN CALCIUM 40 MG TABLET PO SCH (21:23)
[2017-07-10] MEDS: TAMSULOSIN HCL 0.4 MG CAP.SR.24H PO SCH (21:23)
[2017-07-10] MEDS: FINASTERIDE 5 MG TABLET PO SCH (21:24)
[2017-07-10] MEDS ORDERED: ATORVASTATIN CALCIUM 40 MG TABLET PO ONE (22:15)
[2017-07-11] MEDS: IPRATROPIUM/ALBUTEROL 0.5-2.5 MG/3 ML AMPUL NEB SCH ×4 (02:48→21:07)
[2017-07-11] MEDS: LANSOPRAZOLE 30 MG TAB.RAP.DR PO SCH (05:01)
[2017-07-11] MEDS: MORPHINE SULFATE 10 MG/ML INJ IV PRN ×3 (05:01→19:42)
[2017-07-11 05:59] LABS: ABSOLUTE LYMPHOCYTES (AUTO) 0.6 10^3/uL (0.5-4.7); ABSOLUTE MONOCYTES (AUTO) 0.8 10^3/uL (0.1-1.4); ABSOLUTE NEUT (AUTO) 8.6 10^3/uL (1.7-8.2); BASOPHILS % (AUTO) 0.3 % (0-2); EOSINOPHILS % (AUTO) 0.1 % (0-6); HEMATOCRIT 39.4 % (37.9-51.0); HGB HCT DIFFERENCE -0.4; LYMPHOCYTES % (AUTO) 6.3 % (13-45); MEAN CORPUSCULAR HEMOGLOBIN 29.8 pg (27.0-33.4); MEAN CORPUSCULAR VOLUME 90 fl (80-97); MONOCYTES % (AUTO) 7.7 % (3-13); RED BLOOD COUNT 4.36 10^6/uL (4.35-5.55); RED CELL DISTRIBUTION WIDTH 20.1 % (11.5-14.0); SEGMENTED NEUTROPHILS % (AUTO) 85.6 % (42-78)
[2017-07-11 06:37] LABS: ANION GAP 11 (5-19); BLOOD UREA NITROGEN 71 mg/dL (7-20); CALCIUM 8.5 mg/dL (8.4-10.2); CARBON DIOXIDE 32 mmol/L (22-30); CHLORIDE 98 mmol/L (98-107); CREATININE RESULT 1.99 mg/dL (0.52-1.25); GLUCOSE 241 mg/dL (75-110); POTASSIUM 4.2 mmol/L (3.6-5.0); SODIUM 141.4 mmol/L (137-145)
[2017-07-11] MEDS: OXYCODONE-ACETAMINOPHEN 5-325 MG TABLET PO PRN (06:53)
[2017-07-11] MEDS: INSULIN GLARGINE,HUM.REC.ANLOG 300 UNIT/3 ML INSULN.PEN SUBCUT SCH (07:46)
[2017-07-11] MEDS: INSULIN LISPRO 100 UNIT/ML 3 ML VIAL SUBCUT SCH ×3 (07:47→15:37)
[2017-07-11] MEDS: INSULIN LISPRO 100 UNIT/ML 3 ML VIAL SUBCUT PRN ×4 (07:47→21:40)
[2017-07-11] MEDS: NORMAL SALINE 1000 ML 1,000 ML IV PRN (07:47)
[2017-07-11] MEDS ORDERED: INSULIN GLARGINE,HUM.REC.ANLOG 300 UNIT/3 ML INSULN.PEN SUBCUT SCH (08:00)
[2017-07-11 08:01] LABS: PROTHROMBIN TIME 21.9 SEC (11.4-15.4)
[2017-07-11] MEDS: TIOTROPIUM BROMIDE DPI 5 CAP/KIT (18 MCG/CAP) IH SCH (09:05)
[2017-07-11] MEDS: BUDESONIDE/FORMOTEROL 160-4.5 MCG 60 PUFF/6 GM MDI IH SCH ×2 (09:06→21:39)
[2017-07-11] MEDS: CEFTRIAXONE 1 GM/D5W RTU 1 GM/50 ML RTUPB IV SCH (09:06)
[2017-07-11] MEDS: RANOLAZINE 500 MG TAB.SR.12H PO SCH ×2 (09:07→21:40)
[2017-07-11] MEDS: ISOSORBIDE MONONITRATE 30 MG TAB.ER.24H PO SCH (09:07)
[2017-07-11] MEDS: PREGABALIN 75 MG CAPSULE PO SCH ×2 (09:07→21:39)
[2017-07-11] MEDS: METOPROLOL SUCCINATE 50 MG TAB.SR.24H PO SCH (09:08)
[2017-07-11] MEDS: PREDNISONE 20 MG TABLET PO SCH (09:08)
[2017-07-11] MEDS: HYDRALAZINE HCL 25 MG TABLET PO SCH ×2 (09:08→21:39)
[2017-07-11] MEDS: ASPIRIN 81 MG TABLET, ENT COATED PO SCH (09:08)
[2017-07-11] MEDS: POLYETHYLENE GLYCOL 3350 POWDER 17 GM/1 PACKET PO PRN (09:16)
--- NOTE | 2017-07-11 10:43 | PDOC PROGRESS REPORT ---
Subjective Progress Note for:: 07/11/17 Subjective:: Denies any abdominal pains Physical Exam Vital Signs: Temp Pulse Resp BP Pulse Ox 97.3 F 99 12 134/69 H 97 07/11/17 08:05 07/11/17 08:05 07/11/17 08:05 07/11/17 08:05 07/11/17 08:05 Intake & Output 07/10/17 07/11/17 07/12/17 06:59 06:59 06:59 Intake Total 1540 2004 Balance 1540 2004 Weight 96.162 kg 96.162 kg Exam: Has some minimal tenderness along the left upper quadrant near the rib cage Results Laboratory Results: 07/11/17 05:03 07/11/17 06:15 07/11/17 07/11/17 07/11/17 05:03 05:03 06:15 WBC 10.0 RBC 4.36 Hgb 13.0 L Hct 39.4 MCV 90 MCH 29.8 MCHC 33.0 RDW 20.1 H Plt Count 101 L Seg Neutrophils % 85.6 H Lymphocytes % 6.3 L Monocytes % 7.7 Eosinophils % 0.1 Basophils % 0.3 Absolute Neutrophils 8.6 H Absolute Lymphocytes 0.6 Absolute Monocytes 0.8 Absolute Eosinophils 0.0 Absolute Basophils 0.0 Sodium Cancelled 141.4 Potassium Cancelled 4.2 Chloride Cancelled 98 Carbon Dioxide Cancelled 32 H Anion Gap Cancelled 11 BUN Cancelled 71 H Creatinine Cancelled 1.99 H Est GFR ( Amer) Cancelled 40 L Est GFR (Non-Af Amer) Cancelled 33 L Glucose Cancelled 241 H Calcium Cancelled 8.5 07/08/17 20:50 Nasophary ([facility] Only) MRSA Surveillance Culture - Final MRSA RECOVERED Impressions: Abdomen/Pelvis CT 07/08/17 14:02 IMPRESSION: Tiny splenic laceration without subcapsular hematoma or left upper quadrant free fluid. Question nondisplaced fracture anterior left 10th rib. Unruptured 5.4 x 5 cm infrarenal abdominal aortic aneurysm. 3 cm right common iliac artery aneurysm. 3.5 cm left common iliac artery aneurysm. Chest CT 07/08/17 14:02 IMPRESSION: Stable, chronic changes. Old granulomatous disease. Assessment & Plan - Diagnosis (1) Acute bronchitis Qualifiers: Bronchitis organism: unspecified organism Qualified Code(s): J20.9 - Acute bronchitis, unspecified Is this a current diagnosis for this admission?: Yes (3) Contusion of rib on left side Qualifiers: Encounter type: initial encounter Qualified Code(s): S20.212A - Contusion of left front wall of thorax, initial encounter Is this a current diagnosis for this admission?: Yes (4) Debility Is this a current diagnosis for this admission?: Yes (5) Inadequate anticoagulation Is this a current diagnosis for this admission?: Yes (6) Left rib fracture Qualifiers: Encounter type: initial encounter Rib fracture type: single rib Fracture type: closed Qualified Code(s): S22.32XA - Fracture of one rib, left side, initial encounter for closed fracture Is this a current diagnosis for this admission?: Yes (7) Splenic laceration Qualifiers: Encounter type: subsequent encounter Qualified Code(s): S36.039D - Unspecified laceration of spleen, subsequent encounter Is this a current diagnosis for this admission?: Yes - Time Time Spent with patient: 15-24 minutes - His hemoglobin improved from 12.4 yesterday to 13.0 today and the hematocrit hematocrit from 38.5 yesterday to 39.4 today and his platelets went up to 101,000 from 59,000 yesterday - Plan Summary Plan Summary: Continue CBC evaluation. Once his H&H definitely remained stable hopefully in the next 48 hours and he can be discharged His Coumadin can be resumed after 2 weeks
[2017-07-11] MEDS: AZITHROMYCIN 500 MG in DEXTROSE 5%-WATER 250 ML IV SCH (11:16)
--- NOTE | 2017-07-11 16:55 | PDOC PROGRESS REPORT ---
Subjective Progress Note for:: 07/11/17 Subjective:: Patient states that he is feeling better today. Patient states he is still coughing up phlegm. Physical Exam Vital Signs: Temp Pulse Resp BP Pulse Ox 97.3 F 60 16 134/69 H 97 07/11/17 08:05 07/11/17 14:00 07/11/17 08:05 07/11/17 08:05 07/11/17 08:05 Intake & Output 07/10/17 07/11/17 07/12/17 06:59 06:59 06:59 Intake Total 1540 2004 Balance 1540 2004 Weight 96.162 kg 96.162 kg General appearance: PRESENT: no acute distress, well-developed, well-nourished Head exam: PRESENT: atraumatic, normocephalic Eye exam: PRESENT: conjunctiva pink, EOMI. ABSENT: scleral icterus Ear exam: PRESENT: normal external ear exam Mouth exam: PRESENT: moist, tongue midline Neck exam: ABSENT: carotid bruit, JVD, lymphadenopathy, thyromegaly Respiratory exam: PRESENT: prolonged expiratory phas, rhonchi, wheezes. ABSENT : rales Cardiovascular exam: PRESENT: RRR. ABSENT: diastolic murmur, rubs, systolic murmur Pulses: PRESENT: normal dorsalis pedis pul Vascular exam: PRESENT: normal capillary refill GI/Abdominal exam: PRESENT: normal bowel sounds, soft. ABSENT: distended, guarding, mass, organolmegaly, rebound, tenderness Rectal exam: PRESENT: deferred Extremities exam: PRESENT: full ROM. ABSENT: calf tenderness, clubbing, pedal edema Neurological exam: PRESENT: alert, awake, oriented to person, oriented to place , oriented to time, oriented to situation, CN II-XII grossly intact. ABSENT: motor sensory deficit Psychiatric exam: PRESENT: appropriate affect, normal mood. ABSENT: homicidal ideation, suicidal ideation Skin exam: PRESENT: dry, intact, warm. ABSENT: cyanosis, rash Results Laboratory Results: 07/11/17 05:03 07/11/17 06:15 07/11/17 07/11/17 07/11/17 05:03 05:03 06:15 WBC 10.0 RBC 4.36 Hgb 13.0 L Hct 39.4 MCV 90 MCH 29.8 MCHC 33.0 RDW 20.1 H Plt Count 101 L Seg Neutrophils % 85.6 H Lymphocytes % 6.3 L Monocytes % 7.7 Eosinophils % 0.1 Basophils % 0.3 Absolute Neutrophils 8.6 H Absolute Lymphocytes 0.6 Absolute Monocytes 0.8 Absolute Eosinophils 0.0 Absolute Basophils 0.0 Sodium Cancelled 141.4 Potassium Cancelled 4.2 Chloride Cancelled 98 Carbon Dioxide Cancelled 32 H Anion Gap Cancelled 11 BUN Cancelled 71 H Creatinine Cancelled 1.99 H Est GFR ( Amer) Cancelled 40 L Est GFR (Non-Af Amer) Cancelled 33 L Glucose Cancelled 241 H Calcium Cancelled 8.5 07/08/17 20:50 Nasophary ([facility] Only) MRSA Surveillance Culture - Final MRSA RECOVERED Impressions: Abdomen/Pelvis CT 07/08/17 14:02 IMPRESSION: Tiny splenic laceration without subcapsular hematoma or left upper quadrant free fluid. Question nondisplaced fracture anterior left 10th rib. Unruptured 5.4 x 5 cm infrarenal abdominal aortic aneurysm. 3 cm right common iliac artery aneurysm. 3.5 cm left common iliac artery aneurysm. Chest CT 07/08/17 14:02 IMPRESSION: Stable, chronic changes. Old granulomatous disease. Assessment & Plan - Diagnosis (1) Acute bronchitis Qualifiers: Bronchitis organism: unspecified organism Qualified Code(s): J20.9 - Acute bronchitis, unspecified Is this a current diagnosis for this admission?: Yes Plan: Rocephin and Zithromax. (2) Acute kidney injury superimposed on CKD Is this a current diagnosis for this admission?: Yes Plan: In setting of chronic kidney disease stage III: Resolving. (3) Diabetes type 2, uncontrolled Qualifiers: Diabetes mellitus complication status: with circulatory complication Is this a current diagnosis for this admission?: Yes Plan: Patient on sliding scale insulin. Mealtime insulin added and long-acting insulin added. Will monitor Accu-Cheks. (4) Left rib fracture Qualifiers: Encounter type: initial encounter Rib fracture type: single rib Fracture type: closed Qualified Code(s): S22.32XA - Fracture of one rib, left side, initial encounter for closed fracture Is this a current diagnosis for this admission?: Yes Plan: Will continue pain medication (5) Splenic laceration Qualifiers: Encounter type: subsequent encounter Qualified Code(s): S36.039D - Unspecified laceration of spleen, subsequent encounter Is this a current diagnosis for this admission?: Yes Plan: Pt has been seen by surgery. INR trending up due to antibiotics. Will check INR in a.m. (6) Acute respiratory failure with hypoxia Is this a current diagnosis for this admission?: Yes Plan: We will continue nasal cannula. Patient's breathing is improving. (7) History of pulmonary embolus (PE) Is this a current diagnosis for this admission?: Yes Plan: Patient's INR is 1.8. Surgery recommends patient being off anticoagulation for 2 weeks due to splenic laceration. (8) Obesity (BMI 30.0-34.9) Is this a current diagnosis for this admission?: Yes Plan: Encourage dietary changes (9) Subtherapeutic anticoagulation Is this a current diagnosis for this admission?: Yes Plan: Surgery recommends the patient be off anticoagulation due to splenic lack for at least 2 weeks. Will check INR in a.m. (10) Debility Is this a current diagnosis for this admission?: Yes Plan: PT OT consult placed (11) DVT prophylaxis Is this a current diagnosis for this admission?: Yes Plan: SCDs - Time Time Spent with patient: 15-24 minutes
[2017-07-11] MEDS: TAMSULOSIN HCL 0.4 MG CAP.SR.24H PO SCH (21:39)
[2017-07-11] MEDS: ATORVASTATIN CALCIUM 40 MG TABLET PO SCH (21:39)
[2017-07-11] MEDS: FINASTERIDE 5 MG TABLET PO SCH (21:39)
[2017-07-11] MEDS ORDERED: ATORVASTATIN CALCIUM 40 MG TABLET PO SCH (22:00)
[2017-07-11] MEDS: ZOLPIDEM TARTRATE 5 MG TABLET PO PRN (23:18)
[2017-07-12] MEDS: IPRATROPIUM/ALBUTEROL 0.5-2.5 MG/3 ML AMPUL NEB SCH ×4 (02:27→19:31)
[2017-07-12 05:23] LABS: PROTHROMBIN TIME 19.8 SEC (11.4-15.4)
[2017-07-12] MEDS: LANSOPRAZOLE 30 MG TAB.RAP.DR PO SCH (05:27)
[2017-07-12 05:33] LABS: ANION GAP 10 (5-19); BLOOD UREA NITROGEN 66 mg/dL (7-20); CALCIUM 8.6 mg/dL (8.4-10.2); CARBON DIOXIDE 31 mmol/L (22-30); CHLORIDE 100 mmol/L (98-107); CREATININE RESULT 1.71 mg/dL (0.52-1.25); GLUCOSE 198 mg/dL (75-110); POTASSIUM 4.8 mmol/L (3.6-5.0)
[2017-07-12 05:41] LABS: HEMATOCRIT 37.5 % (37.9-51.0); HEMOGLOBIN 12.5 g/dL (13.5-17.0); MEAN CORPUSCULAR HEMOGLOBIN 29.8 pg (27.0-33.4); MEAN CORPUSCULAR HGB CONC 33.3 g/dL (32.0-36.0); MEAN CORPUSCULAR VOLUME 90 fl (80-97); RED BLOOD COUNT 4.18 10^6/uL (4.35-5.55); RED CELL DISTRIBUTION WIDTH 19.8 % (11.5-14.0); WHITE BLOOD COUNT 8.2 10^3/uL (4.0-10.5)
[2017-07-12 06:09] LABS: BASOPHILS % (MANUAL) 0 % (0-2); EOSINOPHILS % (MANUAL) 0 % (0-6); LYMPHOCYTES % (MANUAL) 6 % (13-45); TOTAL CELLS COUNTED 100
[2017-07-12 06:11] LABS: ANISOCYTOSIS 1+; OVALOCYTES 1+; TARGET CELLS SLIGHT; TOXIC VACUOLATION PRESENT
[2017-07-12] MEDS: MORPHINE SULFATE 10 MG/ML INJ IV PRN (06:39)
[2017-07-12] MEDS: CEFTRIAXONE 1 GM/D5W RTU 1 GM/50 ML RTUPB IV SCH (09:11)
[2017-07-12] MEDS: INSULIN LISPRO 100 UNIT/ML 3 ML VIAL SUBCUT SCH ×2 (09:14→17:31)
[2017-07-12] MEDS: INSULIN GLARGINE,HUM.REC.ANLOG 300 UNIT/3 ML INSULN.PEN SUBCUT SCH (09:14)
[2017-07-12] MEDS: ISOSORBIDE MONONITRATE 30 MG TAB.ER.24H PO SCH (09:15)
[2017-07-12] MEDS: HYDRALAZINE HCL 25 MG TABLET PO SCH ×2 (09:16→22:01)
[2017-07-12] MEDS: PREDNISONE 20 MG TABLET PO SCH (09:16)
[2017-07-12] MEDS: PREGABALIN 75 MG CAPSULE PO SCH ×2 (09:17→22:00)
[2017-07-12] MEDS: OXYCODONE-ACETAMINOPHEN 5-325 MG TABLET PO PRN ×3 (09:17→22:05)
[2017-07-12] MEDS: ASPIRIN 81 MG TABLET, ENT COATED PO SCH (09:18)
[2017-07-12] MEDS: POLYETHYLENE GLYCOL 3350 POWDER 17 GM/1 PACKET PO PRN (09:19)
[2017-07-12] MEDS: BUDESONIDE/FORMOTEROL 160-4.5 MCG 60 PUFF/6 GM MDI IH SCH ×2 (09:19→22:01)
[2017-07-12] MEDS: RANOLAZINE 500 MG TAB.SR.12H PO SCH ×2 (09:19→22:01)
[2017-07-12] MEDS: TIOTROPIUM BROMIDE DPI 5 CAP/KIT (18 MCG/CAP) IH SCH (09:20)
[2017-07-12] MEDS: METOPROLOL SUCCINATE 50 MG TAB.SR.24H PO SCH (09:29)
--- NOTE | 2017-07-12 09:56 | PDOC PROGRESS REPORT ---
Subjective Progress Note for:: 07/12/17 Subjective:: Ambulating, sitting in a chair now. No BM. Has pain left flank but less so. The pain is chronic right lower extremity arterial insufficiency pain. Physical Exam Vital Signs: Temp Pulse Resp BP Pulse Ox 97.5 F 78 18 138/64 H 95 07/12/17 03:42 07/12/17 08:05 07/12/17 08:05 07/12/17 03:42 07/12/17 08:05 Intake & Output 07/11/17 07/12/17 07/13/17 06:59 06:59 06:59 Intake Total 2004 1944 Balance 2004 1944 Weight 96.162 kg 104.2 kg General appearance: PRESENT: no acute distress Musculoskeletal exam: PRESENT: other - Mild to moderately tender left flank Results Laboratory Results: 07/12/17 04:10 07/12/17 04:10 07/12/17 07/12/17 04:10 04:10 WBC 8.2 RBC 4.18 L Hgb 12.5 L Hct 37.5 L MCV 90 MCH 29.8 MCHC 33.3 RDW 19.8 H Plt Count 62 L Seg Neutrophils % Not Reportable Lymphocytes % Not Reportable Monocytes % Not Reportable Eosinophils % Not Reportable Basophils % Not Reportable Absolute Neutrophils Not Reportable Absolute Lymphocytes Not Reportable Absolute Monocytes Not Reportable Absolute Eosinophils Not Reportable Absolute Basophils Not Reportable Sodium 141.0 Potassium 4.8 Chloride 100 Carbon Dioxide 31 H Anion Gap 10 BUN 66 H Creatinine 1.71 H Est GFR ( Amer) 47 L Est GFR (Non-Af Amer) 39 L Glucose 198 H Calcium 8.6 07/08/17 20:50 Nasophary ([facility] Only) MRSA Surveillance Culture - Final MRSA RECOVERED Impressions: Abdomen/Pelvis CT 07/08/17 14:02 IMPRESSION: Tiny splenic laceration without subcapsular hematoma or left upper quadrant free fluid. Question nondisplaced fracture anterior left 10th rib. Unruptured 5.4 x 5 cm infrarenal abdominal aortic aneurysm. 3 cm right common iliac artery aneurysm. 3.5 cm left common iliac artery aneurysm. Chest CT 07/08/17 14:02 IMPRESSION: Stable, chronic changes. Old granulomatous disease. Assessment & Plan - Diagnosis (1) Splenic laceration Qualifiers: Encounter type: subsequent encounter Qualified Code(s): S36.039D - Unspecified laceration of spleen, subsequent encounter Is this a current diagnosis for this admission?: Yes Plan: 1. Patient remains hemodynamically stable, with essentially stable hemoglobin, accounting for mild drop due to hemodilution. 2. I reviewed imaging studies with radiology. This is a grade 1 splenic laceration. Anticipated healing uneventfully on its own. The only considerations when to resume his Coumadin. I think a two-week holiday is very reasonable, then he can resume the Coumadin. 3. I discussed the above with Dr. Mendieta, hospitalist. 4. Reconsult surgery if needed.
[2017-07-12] MEDS: POLYETHYLENE GLYCOL 3350 POWDER 17 GM/1 PACKET PO SCH ×3 (10:25→17:33)
[2017-07-12] MEDS: DOCUSATE SODIUM 100 MG CAPSULE PO SCH ×2 (10:25→17:33)
[2017-07-12] MEDS ORDERED: OXYCODONE-ACETAMINOPHEN 5-325 MG TABLET PO ONE (10:30)
--- NOTE | 2017-07-12 13:35 | PDOC PROGRESS REPORT ---
Subjective Progress Note for:: 07/12/17 Subjective:: Patient reports that his right ear is hurting. Patient states that when he touches it he has pain. Patient states that overall he is feeling much better. Physical Exam Vital Signs: Temp Pulse Resp BP Pulse Ox 97.9 F 120 H 17 137/51 H 86 L 07/12/17 12:00 07/12/17 12:00 07/12/17 12:00 07/12/17 12:00 07/12/17 12:00 Intake & Output 07/11/17 07/12/17 07/13/17 06:59 06:59 06:59 Intake Total 2004 1944 Balance 2004 1944 Weight 96.162 kg 104.2 kg General appearance: PRESENT: no acute distress, well-developed, well-nourished Head exam: PRESENT: atraumatic, normocephalic Eye exam: PRESENT: conjunctiva pink, EOMI. ABSENT: scleral icterus Ear exam: PRESENT: other - Right ear positive for tenderness to palpation Mouth exam: PRESENT: moist, tongue midline Neck exam: ABSENT: carotid bruit, JVD, lymphadenopathy, thyromegaly Respiratory exam: PRESENT: other - Rhonchi heard with scant wheezing. Patient not using accessory muscles to breathe. Cardiovascular exam: PRESENT: RRR. ABSENT: diastolic murmur, rubs, systolic murmur Pulses: PRESENT: normal dorsalis pedis pul Vascular exam: PRESENT: normal capillary refill GI/Abdominal exam: PRESENT: normal bowel sounds, soft. ABSENT: distended, guarding, mass, organolmegaly, rebound, tenderness Rectal exam: PRESENT: deferred Extremities exam: PRESENT: full ROM. ABSENT: calf tenderness, clubbing, pedal edema Neurological exam: PRESENT: alert, awake, oriented to person, oriented to place , oriented to time, oriented to situation, CN II-XII grossly intact. ABSENT: motor sensory deficit Psychiatric exam: PRESENT: appropriate affect, normal mood. ABSENT: homicidal ideation, suicidal ideation Skin exam: PRESENT: dry, intact, warm. ABSENT: cyanosis, rash Results Laboratory Results: 07/12/17 04:10 07/12/17 04:10 07/12/17 07/12/17 04:10 04:10 WBC 8.2 RBC 4.18 L Hgb 12.5 L Hct 37.5 L MCV 90 MCH 29.8 MCHC 33.3 RDW 19.8 H Plt Count 62 L Seg Neutrophils % Not Reportable Lymphocytes % Not Reportable Monocytes % Not Reportable Eosinophils % Not Reportable Basophils % Not Reportable Absolute Neutrophils Not Reportable Absolute Lymphocytes Not Reportable Absolute Monocytes Not Reportable Absolute Eosinophils Not Reportable Absolute Basophils Not Reportable Sodium 141.0 Potassium 4.8 Chloride 100 Carbon Dioxide 31 H Anion Gap 10 BUN 66 H Creatinine 1.71 H Est GFR ( Amer) 47 L Est GFR (Non-Af Amer) 39 L Glucose 198 H Calcium 8.6 07/08/17 20:50 Nasophary ([facility] Only) MRSA Surveillance Culture - Final MRSA RECOVERED Impressions: Abdomen/Pelvis CT 07/08/17 14:02 IMPRESSION: Tiny splenic laceration without subcapsular hematoma or left upper quadrant free fluid. Question nondisplaced fracture anterior left 10th rib. Unruptured 5.4 x 5 cm infrarenal abdominal aortic aneurysm. 3 cm right common iliac artery aneurysm. 3.5 cm left common iliac artery aneurysm. Chest CT 07/08/17 14:02 IMPRESSION: Stable, chronic changes. Old granulomatous disease. Assessment & Plan - Diagnosis (1) Acute bronchitis Qualifiers: Bronchitis organism: unspecified organism Qualified Code(s): J20.9 - Acute bronchitis, unspecified Is this a current diagnosis for this admission?: Yes Plan: Patient sputum was positive for MRSA. Will place patient back on doxycycline. Patient is received IV fluids for volume expansion and creatinine has returned to baseline. Will monitor renal function to make sure patient is tolerating medication. (2) Otitis externa Is this a current diagnosis for this admission?: Yes Plan: We will place patient on neomycin polymyxin hydro-cortisol drops (3) Acute kidney injury superimposed on CKD Is this a current diagnosis for this admission?: Yes Plan: In setting of chronic kidney disease stage III: Resolved. Will start doxycycline and monitor renal function closely. Feel that patient's renal function was worsening due to being dehydrated. (4) Diabetes type 2, uncontrolled Qualifiers: Diabetes mellitus complication status: with circulatory complication Is this a current diagnosis for this admission?: Yes Plan: Patient on sliding scale insulin. Will increase Lantus to 35 units subcu every morning and increase short acting insulin to 6 units with meals.. Will monitor Accu-Cheks. (5) Left rib fracture Qualifiers: Encounter type: initial encounter Rib fracture type: single rib Fracture type: closed Qualified Code(s): S22.32XA - Fracture of one rib, left side, initial encounter for closed fracture Is this a current diagnosis for this admission?: Yes Plan: Will continue pain medication (6) Splenic laceration Qualifiers: Encounter type: subsequent encounter Qualified Code(s): S36.039D - Unspecified laceration of spleen, subsequent encounter Is this a current diagnosis for this admission?: Yes Plan: Pt has been seen by surgery. will check INR in a.m. (7) Acute respiratory failure with hypoxia Is this a current diagnosis for this admission?: Yes Plan: Resolving (8) History of pulmonary embolus (PE) Is this a current diagnosis for this admission?: Yes Plan: Patient's INR is 1.5. Surgery recommends patient being off anticoagulation for 2 weeks due to splenic laceration. (9) Obesity (BMI 30.0-34.9) Is this a current diagnosis for this admission?: Yes Plan: Encourage dietary changes (10) Subtherapeutic anticoagulation Is this a current diagnosis for this admission?: Yes Plan: Surgery recommends the patient be off anticoagulation due to splenic lac for at least 2 weeks. Will check INR in a.m. (11) Debility Is this a current diagnosis for this admission?: Yes Plan: PT OT consult placed (12) DVT prophylaxis Is this a current diagnosis for this admission?: Yes Plan: SCDs - Time Time Spent with patient: 15-24 minutes Anticipated discharge: Home - Anticipate discharge home in 2 days.
[2017-07-12] MEDS ORDERED: DOXYCYCLINE HYCLATE 100 MG TABLET PO ONE (14:00)
[2017-07-12] MEDS ORDERED: ONDANSETRON HCL INJ/PF 4 MG/2 ML SDV IV PRN (14:00)
[2017-07-12] MEDS ORDERED: MORPHINE SULFATE 10 MG/ML INJ IV PRN (14:00)
[2017-07-12] MEDS: INSULIN LISPRO 100 UNIT/ML 3 ML VIAL SUBCUT PRN ×3 (14:01→22:07)
[2017-07-12] MEDS: NEOMY SULF/POLYMYX B SULF/HC OTIC SUSP 10 ML AD SCH ×3 (15:24→22:01)
[2017-07-12] MEDS: FINASTERIDE 5 MG TABLET PO SCH (21:51)
[2017-07-12] MEDS: TAMSULOSIN HCL 0.4 MG CAP.SR.24H PO SCH (22:00)
[2017-07-12] MEDS: ATORVASTATIN CALCIUM 40 MG TABLET PO SCH (22:00)
[2017-07-12] MEDS: DOXYCYCLINE HYCLATE 100 MG TABLET PO SCH (22:00)
[2017-07-13] MEDS: IPRATROPIUM/ALBUTEROL 0.5-2.5 MG/3 ML AMPUL NEB SCH ×4 (01:56→19:56)
[2017-07-13] MEDS: LANSOPRAZOLE 30 MG TAB.RAP.DR PO SCH (06:32)
[2017-07-13] MEDS: OXYCODONE-ACETAMINOPHEN 5-325 MG TABLET PO PRN ×3 (06:32→19:54)
[2017-07-13 07:09] LABS: PROTHROMBIN TIME 16.7 SEC (11.4-15.4)
[2017-07-13 07:10] LABS: HEMATOCRIT 38.7 % (37.9-51.0); HEMOGLOBIN 12.7 g/dL (13.5-17.0); HGB HCT DIFFERENCE -0.6; MEAN CORPUSCULAR HEMOGLOBIN 29.8 pg (27.0-33.4); MEAN CORPUSCULAR HGB CONC 32.9 g/dL (32.0-36.0); MEAN CORPUSCULAR VOLUME 91 fl (80-97); RED BLOOD COUNT 4.26 10^6/uL (4.35-5.55); RED CELL DISTRIBUTION WIDTH 20.1 % (11.5-14.0); WHITE BLOOD COUNT 7.3 10^3/uL (4.0-10.5)
[2017-07-13 07:26] LABS: ANION GAP 12 (5-19); BLOOD UREA NITROGEN 55 mg/dL (7-20); CARBON DIOXIDE 28 mmol/L (22-30); CHLORIDE 104 mmol/L (98-107); CREATININE RESULT 1.55 mg/dL (0.52-1.25); GLUCOSE 242 mg/dL (75-110); POTASSIUM 4.3 mmol/L (3.6-5.0); SODIUM 144.4 mmol/L (137-145)
[2017-07-13 07:41] LABS: BASOPHILS % (MANUAL) 0 % (0-2); EOSINOPHILS % (MANUAL) 0 % (0-6); LYMPHOCYTES % (MANUAL) 14 % (13-45); TOTAL CELLS COUNTED 100
[2017-07-13 07:44] LABS: ANISOCYTOSIS 2+; POLYCHROMASIA SLIGHT; TOXIC GRANULATION SLIGHT; TOXIC VACUOLATION PRESENT
[2017-07-13] MEDS ORDERED: POLYETHYLENE GLYCOL 3350 POWDER 17 GM/1 PACKET PO SCH (10:00)
[2017-07-13] MEDS: METOPROLOL SUCCINATE 50 MG TAB.SR.24H PO SCH (10:11)
[2017-07-13] MEDS: TIOTROPIUM BROMIDE DPI 5 CAP/KIT (18 MCG/CAP) IH SCH (10:11)
[2017-07-13] MEDS: DOCUSATE SODIUM 100 MG CAPSULE PO SCH ×2 (10:12→18:09)
[2017-07-13] MEDS: PREDNISONE 20 MG TABLET PO SCH (10:12)
[2017-07-13] MEDS: PREGABALIN 75 MG CAPSULE PO SCH ×2 (10:12→23:30)
[2017-07-13] MEDS: ASPIRIN 81 MG TABLET, ENT COATED PO SCH (10:12)
[2017-07-13] MEDS: ISOSORBIDE MONONITRATE 30 MG TAB.ER.24H PO SCH (10:13)
[2017-07-13] MEDS: RANOLAZINE 500 MG TAB.SR.12H PO SCH ×2 (10:14→23:28)
[2017-07-13] MEDS: DOXYCYCLINE HYCLATE 100 MG TABLET PO SCH ×2 (10:14→23:30)
[2017-07-13] MEDS: BUDESONIDE/FORMOTEROL 160-4.5 MCG 60 PUFF/6 GM MDI IH SCH (10:14)
[2017-07-13] MEDS: INSULIN GLARGINE,HUM.REC.ANLOG 300 UNIT/3 ML INSULN.PEN SUBCUT SCH (10:19)
[2017-07-13] MEDS: INSULIN LISPRO 100 UNIT/ML 3 ML VIAL SUBCUT SCH ×3 (10:25→18:09)
[2017-07-13] MEDS: HYDRALAZINE HCL 25 MG TABLET PO SCH ×2 (10:26→23:31)
[2017-07-13] MEDS: NEOMY SULF/POLYMYX B SULF/HC OTIC SUSP 10 ML AD SCH ×3 (10:27→23:27)
[2017-07-13] MEDS: INSULIN LISPRO 100 UNIT/ML 3 ML VIAL SUBCUT PRN ×2 (13:14→18:12)
[2017-07-13] MEDS ORDERED: FUROSEMIDE INJ/PF 40 MG/4 ML SDV IV ONE (15:00)
[2017-07-13] MEDS ORDERED: BISACODYL 5 MG TABEC PO ONE (15:00)
[2017-07-13] MEDS ORDERED: SORBITOL 70% SOLUTION 30 ML UDC PO ONE (15:30)
--- NOTE | 2017-07-13 17:06 | PDOC PROGRESS REPORT ---
Subjective Progress Note for:: 07/13/17 Subjective:: Patient is a 76-year-old male admitted for acute bronchitis with COPD exacerbation and acute hypoxic respiratory failure. Patient states he still very short of breath with chest tightness. Patient also noted that he does have some swelling in his legs. Patient states he has not had a bowel movement in 5 days and normally has one every other day. Patient normally takes Benefiber for this stating that Metamucil does not work. Physical Exam Vital Signs: Temp Pulse Resp BP Pulse Ox 97.9 F 62 16 156/59 H 97 07/13/17 11:57 07/13/17 14:00 07/13/17 13:31 07/13/17 11:57 07/13/17 13:31 Intake & Output 07/12/17 07/13/17 07/14/17 06:59 06:59 06:59 Intake Total 1945 1375 Output Total 550 Balance 1945 825 Weight 104.2 kg 104.2 kg General appearance: PRESENT: no acute distress, obese, other - sitting up in chair. Head exam: PRESENT: normocephalic Eye exam: PRESENT: EOMI Neck exam: PRESENT: full ROM. ABSENT: JVD Respiratory exam: PRESENT: decreased breath sounds, unlabored. ABSENT: tachypnea - course breath sounds, wheezes Cardiovascular exam: PRESENT: RRR, +S1, +S2 GI/Abdominal exam: PRESENT: soft. ABSENT: normal bowel sounds, tenderness Rectal exam: PRESENT: deferred Extremities exam: PRESENT: other - Left knee prosthesis right lower extremity edema with 2+ pitting Musculoskeletal exam: PRESENT: full ROM, other - Left lower extremity prosthesis Neurological exam: PRESENT: CN II-XII grossly intact Psychiatric exam: PRESENT: normal mood Skin exam: PRESENT: intact - Scars on the arm and growth on skin, warm Results Laboratory Results: 07/13/17 06:02 07/13/17 06:02 07/13/17 07/13/17 06:02 06:02 WBC 7.3 RBC 4.26 L Hgb 12.7 L Hct 38.7 MCV 91 MCH 29.8 MCHC 32.9 RDW 20.1 H Plt Count 68 L Seg Neutrophils % Not Reportable Lymphocytes % Not Reportable Monocytes % Not Reportable Eosinophils % Not Reportable Basophils % Not Reportable Absolute Neutrophils Not Reportable Absolute Lymphocytes Not Reportable Absolute Monocytes Not Reportable Absolute Eosinophils Not Reportable Absolute Basophils Not Reportable Sodium 144.4 Potassium 4.3 Chloride 104 Carbon Dioxide 28 Anion Gap 12 BUN 55 H Creatinine 1.55 H Est GFR ( Amer) 53 L Est GFR (Non-Af Amer) 44 L Glucose 242 H Calcium 9.0 07/09/17 07:25 Sputum Gram Stain - Final 07/09/17 07:25 Sputum Sputum Culture - Final Mrsa (Meth Resis Staph Aureus) Greatly Reduced Normal Diann Impressions: Abdomen/Pelvis CT 07/08/17 14:02 IMPRESSION: Tiny splenic laceration without subcapsular hematoma or left upper quadrant free fluid. Question nondisplaced fracture anterior left 10th rib. Unruptured 5.4 x 5 cm infrarenal abdominal aortic aneurysm. 3 cm right common iliac artery aneurysm. 3.5 cm left common iliac artery aneurysm. Chest CT 07/08/17 14:02 IMPRESSION: Stable, chronic changes. Old granulomatous disease. Assessment & Plan - Diagnosis (1) Acute bronchitis Qualifiers: Bronchitis organism: unspecified organism Qualified Code(s): J20.9 - Acute bronchitis, unspecified Is this a current diagnosis for this admission?: Yes Plan: Patient sputum found to be growing MRSA. Patient currently on doxycycline. Continue p.o. steroids and nebs. (2) COPD with acute exacerbation Is this a current diagnosis for this admission?: Yes Plan: Patient continued on p.o. steroids and bronchodilators. Patient also on antibiotics. Still complaining of some chest tightness will start patient on Singulair and budesonide. (3) Acute on chronic respiratory failure with hypoxemia Is this a current diagnosis for this admission?: Yes Plan: This is probably worsened by his acute bronchitis. Patient continue supplemental oxygen. (4) Acute kidney injury superimposed on CKD Is this a current diagnosis for this admission?: Yes Plan: Patient creatinine trended down with gentle hydration however patient is showing signs of volume overload with pedal edema. (5) DVT prophylaxis Is this a current diagnosis for this admission?: Yes (6) Diabetes type 2, uncontrolled Qualifiers: Diabetes mellitus complication status: with circulatory complication Is this a current diagnosis for this admission?: Yes Plan: Continue current regimen and adjust accordingly. (7) Left rib fracture Qualifiers: Encounter type: initial encounter Rib fracture type: single rib Fracture type: closed Qualified Code(s): S22.32XA - Fracture of one rib, left side, initial encounter for closed fracture Is this a current diagnosis for this admission?: Yes Plan: Continue pain management. Will order incentive spirometry to encourage patient to continue taking deep breathes. (8) Otitis externa Is this a current diagnosis for this admission?: Yes Plan: Continue current regimen consisting of otic drops (9) Splenic laceration Qualifiers: Encounter type: subsequent encounter Qualified Code(s): S36.039D - Unspecified laceration of spleen, subsequent encounter Is this a current diagnosis for this admission?: Yes Plan: She evaluated by surgery who recommended patient be off Coumadin for 2 weeks. No surgical intervention is needed as patient should heal on its own. (10) History of pulmonary embolus (PE) Is this a current diagnosis for this admission?: Yes Plan: Patient normally anticoagulated with Coumadin however due to his splenic laceration is recommended. The patient be off Coumadin for 2 weeks. (11) Obesity (BMI 30.0-34.9) Is this a current diagnosis for this admission?: Yes Plan: Patient counseled on diet and physical activity. (12) Subtherapeutic anticoagulation Is this a current diagnosis for this admission?: Yes Plan: Recommended due to patient current splenic laceration. (13) Constipation Qualifiers: Constipation type: chronic idiopathic constipation Qualified Code(s): K59.04 - Chronic idiopathic constipation Is this a current diagnosis for this admission?: Yes Plan: Patient states he has not had a bowel movement in 5 days. Patient is normally able to have limited with the use of Benefiber however this is not working. Patient given sorbitol and docusate. (14) Chronic diastolic heart failure Is this a current diagnosis for this admission?: Yes Plan: Continue her current cardiac medications will consist of beta-stalin, vasodilator. Patient is showing some signs of volume overload with pedal edema. Patient is given a dose of Lasix and restarted his metolazone will watch. Patient renal function closely to make sure he does not worsen. - Time Time Spent with patient: 15-24 minutes Medications reviewed and adjusted accordingly: Yes Anticipated discharge: Home Within: within 36 hours - She still complained of respiratory symptoms which consist of shortness of breath with activity which is unusual for the patient. We will continue to treat patient in hopes of some resolution prior to discharge home.
[2017-07-13] MEDS: BUDESONIDE NEB 0.5 MG/2 ML AMPUL NEB SCH (19:56)
[2017-07-13] MEDS: ATORVASTATIN CALCIUM 40 MG TABLET PO SCH (23:30)
[2017-07-13] MEDS: FINASTERIDE 5 MG TABLET PO SCH (23:30)
[2017-07-13] MEDS: MONTELUKAST SODIUM 10 MG TABLET PO SCH (23:31)
[2017-07-13] MEDS: TAMSULOSIN HCL 0.4 MG CAP.SR.24H PO SCH (23:31)
[2017-07-14] MEDS: INSULIN LISPRO 100 UNIT/ML 3 ML VIAL SUBCUT PRN ×3 (00:04→16:55)
[2017-07-14] MEDS: OXYCODONE-ACETAMINOPHEN 5-325 MG TABLET PO PRN ×5 (00:05→22:24)
[2017-07-14] MEDS: IPRATROPIUM/ALBUTEROL 0.5-2.5 MG/3 ML AMPUL NEB SCH ×4 (02:30→19:45)
[2017-07-14 05:51] LABS: ANION GAP 8 (5-19); BLOOD UREA NITROGEN 53 mg/dL (7-20); CARBON DIOXIDE 32 mmol/L (22-30); CHLORIDE 105 mmol/L (98-107); CREATININE RESULT 1.74 mg/dL (0.52-1.25); GLUCOSE 216 mg/dL (75-110); MAGNESIUM 1.9 mg/dL (1.6-2.3); POTASSIUM 4.4 mmol/L (3.6-5.0); SODIUM 145.1 mmol/L (137-145)
[2017-07-14] MEDS: LANSOPRAZOLE 30 MG TAB.RAP.DR PO SCH (07:13)
[2017-07-14] MEDS: INSULIN GLARGINE,HUM.REC.ANLOG 300 UNIT/3 ML INSULN.PEN SUBCUT SCH (08:16)
[2017-07-14] MEDS: BUDESONIDE NEB 0.5 MG/2 ML AMPUL NEB SCH ×2 (08:17→19:45)
[2017-07-14] MEDS: INSULIN LISPRO 100 UNIT/ML 3 ML VIAL SUBCUT SCH ×3 (08:19→16:51)
[2017-07-14] MEDS: PREDNISONE 20 MG TABLET PO SCH (09:34)
[2017-07-14] MEDS: DOCUSATE SODIUM 100 MG CAPSULE PO SCH ×2 (09:34→17:01)
[2017-07-14] MEDS: HYDRALAZINE HCL 25 MG TABLET PO SCH ×2 (09:35→22:24)
[2017-07-14] MEDS: ASPIRIN 81 MG TABLET, ENT COATED PO SCH (09:36)
[2017-07-14] MEDS: PREGABALIN 75 MG CAPSULE PO SCH ×2 (09:37→22:23)
[2017-07-14] MEDS: METOPROLOL SUCCINATE 50 MG TAB.SR.24H PO SCH (09:37)
[2017-07-14] MEDS: ISOSORBIDE MONONITRATE 30 MG TAB.ER.24H PO SCH (09:37)
[2017-07-14] MEDS: DOXYCYCLINE HYCLATE 100 MG TABLET PO SCH ×2 (09:39→22:23)
[2017-07-14] MEDS: RANOLAZINE 500 MG TAB.SR.12H PO SCH ×2 (09:39→22:24)
[2017-07-14] MEDS: NEOMY SULF/POLYMYX B SULF/HC OTIC SUSP 10 ML AD SCH ×4 (09:42→22:45)
[2017-07-14] MEDS ORDERED: METOLAZONE 2.5 MG TABLET PO SCH (10:00)
[2017-07-14] MEDS ORDERED: FUROSEMIDE INJ/PF 40 MG/4 ML SDV IV ONE (14:12)
--- NOTE | 2017-07-14 19:25 | PDOC PROGRESS REPORT ---
Subjective Progress Note for:: 07/14/17 Subjective:: Patient is a 76-year-old male admitted for acute bronchitis with COPD exacerbation and acute hypoxic respiratory failure. He states he is doing better. Patient did finally have a bowel bowel movement but did not require the sorbitol or ducolex. Patient states he still swollen and thinks that he needs some more Lasix because that really helped him. Physical Exam Vital Signs: Temp Pulse Resp BP Pulse Ox 98.1 F 55 L 18 142/59 H 96 07/14/17 15:23 07/14/17 15:23 07/14/17 15:23 07/14/17 15:23 07/14/17 15:23 Intake & Output 07/13/17 07/14/17 07/15/17 06:59 06:59 06:59 Intake Total 1375 1085 600 Output Total 550 550 Balance 825 535 600 Weight 104.2 kg 104.2 kg General appearance: PRESENT: no acute distress, obese Head exam: PRESENT: normocephalic Eye exam: PRESENT: EOMI Mouth exam: PRESENT: moist Neck exam: PRESENT: full ROM. ABSENT: JVD Respiratory exam: PRESENT: decreased breath sounds, rhonchi, unlabored. 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 Question nondisplaced fracture anterior left 10th rib. Unruptured 5.4 x 5 cm infrarenal abdominal aortic aneurysm. 3 cm right common iliac artery aneurysm. 3.5 cm left common iliac artery aneurysm. Chest CT 07/08/17 14:02 IMPRESSION: Stable, chronic changes. Old granulomatous disease. Assessment & Plan - Diagnosis (1) Acute bronchitis Qualifiers: Bronchitis organism: unspecified organism Qualified Code(s): J20.9 - Acute bronchitis, unspecified Is this a current diagnosis for this admission?: Yes Plan: Patient sputum found to be growing MRSA. Patient currently on doxycycline. Continue p.o. steroids and nebs. (2) COPD with acute exacerbation Is this a current diagnosis for this admission?: Yes (3) Acute on chronic respiratory failure with hypoxemia Is this a current diagnosis for this admission?: Yes Plan: This is probably worsened by his acute bronchitis. Patient continue supplemental oxygen along with nebs, steroids and antibiotics (4) Acute kidney injury superimposed on CKD Is this a current diagnosis for this admission?: Yes Plan: Patient creatinine trended up after he was given Lasix. Patient was given Lasix as he was having some worsening breathing and he was having some pedal edema. Will watch for urinary output and as long as he has adequate urine output will not be overly concerned about the elevated creatinine. (5) DVT prophylaxis Is this a current diagnosis for this admission?: Yes Plan: No DVT prophylaxis at this time as patient has a splenic rupture. Furthermore patient is a amputee making SCDs difficult to use. (6) Diabetes type 2, uncontrolled Qualifiers: Diabetes mellitus complication status: with circulatory complication Is this a current diagnosis for this admission?: Yes Plan: Continue current regimen and adjust accordingly. Elevated blood glucoses might be due to the use of steroids. Patient blood glucose is better today as he is watching what he is eating. (7) Left rib fracture Qualifiers: Encounter type: initial encounter Rib fracture type: single rib Fracture type: closed Qualified Code(s): S22.32XA - Fracture of one rib, left side, initial encounter for closed fracture Is this a current diagnosis for this admission?: Yes Plan: Continue pain management. Will order incentive spirometry to encourage patient to continue taking deep breathes. (8) Otitis externa Is this a current diagnosis for this admission?: Yes Plan: Continue current regimen consisting of otic drops (9) Splenic laceration Qualifiers: Encounter type: subsequent encounter Qualified Code(s): S36.039D - Unspecified laceration of spleen, subsequent encounter Is this a current diagnosis for this admission?: Yes Plan: She evaluated by surgery who recommended patient be off Coumadin for 2 weeks. No surgical intervention is needed as patient should heal on its own. (10) History of pulmonary embolus (PE) Is this a current diagnosis for this admission?: Yes Plan: Patient normally anticoagulated with Coumadin however due to his splenic laceration is recommended. The patient be off Coumadin for 2 weeks. (11) Obesity (BMI 30.0-34.9) Is this a current diagnosis for this admission?: Yes Plan: Patient counseled on diet and physical activity. (12) Subtherapeutic anticoagulation Is this a current diagnosis for this admission?: Yes Plan: Recommended due to patient current splenic laceration. (13) Constipation Qualifiers: Constipation type: chronic idiopathic constipation Qualified Code(s): K59.04 - Chronic idiopathic constipation Is this a current diagnosis for this admission?: Yes Plan: Patient states he has not had a bowel movement in 5 days. She had a bowel movement on Benefiber alone. (14) Chronic diastolic heart failure Is this a current diagnosis for this admission?: Yes Plan: Continue her current cardiac medications will consist of beta-stalin, vasodilator. Patient is showing some signs of volume overload with pedal edema. Patient given a dose of Lasix. Patient renal function did worsen however he is having adequate renal output. Will give patient another dose of Lasix today. - Time Time Spent with patient: Less than 15 minutes Anticipated discharge: Home with Homehealth Within: within 48 hours - Is at high risk for readmission. Patient was discharged not too long ago and is back again in the hospital with the same presentation. Will continue to monitor patient to make sure he is adequately responding to therapy.
[2017-07-14] MEDS: ATORVASTATIN CALCIUM 40 MG TABLET PO SCH (22:23)
[2017-07-14] MEDS: FINASTERIDE 5 MG TABLET PO SCH (22:23)
[2017-07-14] MEDS: MONTELUKAST SODIUM 10 MG TABLET PO SCH (22:23)
[2017-07-14] MEDS: TAMSULOSIN HCL 0.4 MG CAP.SR.24H PO SCH (22:24)
[2017-07-15] MEDS: INSULIN LISPRO 100 UNIT/ML 3 ML VIAL SUBCUT PRN ×4 (00:33→22:44)
[2017-07-15] MEDS: IPRATROPIUM/ALBUTEROL 0.5-2.5 MG/3 ML AMPUL NEB SCH ×4 (02:32→19:51)
[2017-07-15] MEDS: LANSOPRAZOLE 30 MG TAB.RAP.DR PO SCH (05:30)
[2017-07-15 06:31] LABS: ANION GAP 10 (5-19); BLOOD UREA NITROGEN 52 mg/dL (7-20); CALCIUM 9.1 mg/dL (8.4-10.2); CARBON DIOXIDE 30 mmol/L (22-30); CHLORIDE 103 mmol/L (98-107); CREATININE RESULT 1.55 mg/dL (0.52-1.25); GLUCOSE 243 mg/dL (75-110); POTASSIUM 4.1 mmol/L (3.6-5.0); SODIUM 143.3 mmol/L (137-145)
[2017-07-15] MEDS ORDERED: FUROSEMIDE INJ/PF 40 MG/4 ML SDV IV ONE (08:00)
[2017-07-15] MEDS ORDERED: ACETAMINOPHEN 325 MG TABLET PO PRN (08:00)
[2017-07-15] MEDS: INSULIN LISPRO 100 UNIT/ML 3 ML VIAL SUBCUT SCH ×3 (08:11→15:55)
[2017-07-15] MEDS: INSULIN GLARGINE,HUM.REC.ANLOG 300 UNIT/3 ML INSULN.PEN SUBCUT SCH (08:12)
[2017-07-15] MEDS: OXYCODONE-ACETAMINOPHEN 5-325 MG TABLET PO PRN ×4 (08:14→20:28)
[2017-07-15] MEDS: BUDESONIDE NEB 0.5 MG/2 ML AMPUL NEB SCH ×2 (08:26→19:50)
[2017-07-15] MEDS: HYDRALAZINE HCL 25 MG TABLET PO SCH ×2 (10:20→22:43)
[2017-07-15] MEDS: ASPIRIN 81 MG TABLET, ENT COATED PO SCH (10:20)
[2017-07-15] MEDS: RANOLAZINE 500 MG TAB.SR.12H PO SCH ×2 (10:21→22:43)
[2017-07-15] MEDS: METOPROLOL SUCCINATE 50 MG TAB.SR.24H PO SCH (10:22)
[2017-07-15] MEDS: PREGABALIN 75 MG CAPSULE PO SCH ×2 (10:22→22:43)
[2017-07-15] MEDS: DOXYCYCLINE HYCLATE 100 MG TABLET PO SCH ×2 (10:23→22:44)
[2017-07-15] MEDS: ISOSORBIDE MONONITRATE 30 MG TAB.ER.24H PO SCH (10:23)
[2017-07-15] MEDS: DOCUSATE SODIUM 100 MG CAPSULE PO SCH ×2 (10:23→18:09)
[2017-07-15] MEDS: PREDNISONE 20 MG TABLET PO SCH (10:23)
[2017-07-15] MEDS: NEOMY SULF/POLYMYX B SULF/HC OTIC SUSP 10 ML AD SCH ×4 (10:24→22:44)
--- NOTE | 2017-07-15 20:38 | PDOC PROGRESS REPORT ---
Subjective Progress Note for:: 07/15/17 Subjective:: Patient is a 76-year-old male admitted for acute bronchitis with COPD exacerbation and acute hypoxic respiratory failure. He states he is doing better. Patient states he is feeling better although he is still not able to cough up what is in his chest. Flutter valve is being brought to him. He is hoping he will be ready to go home tomorrow. Physical Exam Vital Signs: Temp Pulse Resp BP Pulse Ox 97.5 F 60 18 119/57 L 96 07/15/17 16:12 07/15/17 19:50 07/15/17 19:50 07/15/17 16:12 07/15/17 16:12 Intake & Output 07/14/17 07/15/17 07/16/17 06:59 06:59 06:59 Intake Total 1085 963 633 Output Total 550 Balance 535 963 633 Weight 104.2 kg 104.2 kg General appearance: PRESENT: no acute distress, obese Head exam: PRESENT: normocephalic Eye exam: PRESENT: EOMI Neck exam: PRESENT: full ROM Respiratory exam: PRESENT: rhonchi, unlabored. ABSENT: wheezes - right rib tenderness Cardiovascular exam: PRESENT: RRR, +S1, +S2 GI/Abdominal exam: PRESENT: normal bowel sounds, soft. ABSENT: tenderness Rectal exam: PRESENT: deferred Extremities exam: PRESENT: other - trace right leg pedal edema Left BKA Neurological exam: PRESENT: alert, awake, oriented to person, oriented to place , oriented to time, CN II-XII grossly intact Psychiatric exam: PRESENT: normal mood Skin exam: PRESENT: intact, warm Results Laboratory Results: 07/13/17 06:02 07/15/17 04:14 07/15/17 04:14 Sodium 143.3 Potassium 4.1 Chloride 103 Carbon Dioxide 30 Anion Gap 10 BUN 52 H Creatinine 1.55 H Est GFR ( Amer) 53 L Est GFR (Non-Af Amer) 44 L Glucose 243 H Calcium 9.1 Impressions: Abdomen/Pelvis CT 07/08/17 14:02 IMPRESSION: Tiny splenic laceration without subcapsular hematoma or left upper quadrant free fluid. Question nondisplaced fracture anterior left 10th rib. Unruptured 5.4 x 5 cm infrarenal abdominal aortic aneurysm. 3 cm right common iliac artery aneurysm. 3.5 cm left common iliac artery aneurysm. Chest CT 07/08/17 14:02 IMPRESSION: Stable, chronic changes. Old granulomatous disease. Assessment & Plan - Diagnosis (1) Acute bronchitis Qualifiers: Bronchitis organism: unspecified organism Qualified Code(s): J20.9 - Acute bronchitis, unspecified Is this a current diagnosis for this admission?: Yes Plan: Patient sputum found to be growing MRSA. Continue doxycycline. Continue p.o. steroids and nebs. (2) COPD with acute exacerbation Is this a current diagnosis for this admission?: Yes Plan: Patient continued on p.o. steroids and bronchodilators. Patient also on antibiotics. Patient states he feels better but is unable to cough up any mucus. Given flutter valve. (3) Acute on chronic respiratory failure with hypoxemia Is this a current diagnosis for this admission?: Yes Plan: This is probably worsened by his acute bronchitis. Patient continue supplemental oxygen along with nebs, steroids and antibiotics. Patient maintaining his saturations. (4) Acute kidney injury superimposed on CKD Is this a current diagnosis for this admission?: Yes Plan: Creatinine peaked and is trending back down. Patient given 1 last dose of lasix today. (5) DVT prophylaxis Is this a current diagnosis for this admission?: Yes (6) Diabetes type 2, uncontrolled Qualifiers: Diabetes mellitus complication status: with circulatory complication Is this a current diagnosis for this admission?: Yes Plan: . Elevated blood glucoses might be due to the use of steroids. Patient still with elevated glucoses. Patient receiving additional coverage with sliding scale. Blood glucose will improve once patient is off steroids. Patient A1c is 7.6 therefore he is controlled when not on steroids. (7) Left rib fracture Qualifiers: Encounter type: initial encounter Rib fracture type: single rib Fracture type: closed Qualified Code(s): S22.32XA - Fracture of one rib, left side, initial encounter for closed fracture Is this a current diagnosis for this admission?: Yes Plan: Continue pain management along with incentive spirometry. Explained to patient that this will take time to feel better. (8) Otitis externa Is this a current diagnosis for this admission?: Yes Plan: Continue otic drops (9) Splenic laceration Qualifiers: Encounter type: subsequent encounter Qualified Code(s): S36.039D - Unspecified laceration of spleen, subsequent encounter Is this a current diagnosis for this admission?: Yes Plan: She evaluated by surgery who recommended patient be off Coumadin for 2 weeks. No surgical intervention is needed as patient should heal on its own. (10) History of pulmonary embolus (PE) Is this a current diagnosis for this admission?: Yes Plan: Patient normally anticoagulated with Coumadin however due to his splenic laceration it is recommend that he be off of it for 2 weeks. (11) Obesity (BMI 30.0-34.9) Is this a current diagnosis for this admission?: Yes Plan: Patient counseled on diet and physical activity. (12) Subtherapeutic anticoagulation Is this a current diagnosis for this admission?: Yes Plan: Recommended due to splenic laceration. (13) Constipation Qualifiers: Constipation type: chronic idiopathic constipation Qualified Code(s): K59.04 - Chronic idiopathic constipation Is this a current diagnosis for this admission?: Yes Plan: Resolved. Continue benefiber. (14) Chronic diastolic heart failure Is this a current diagnosis for this admission?: Yes Plan: Continue her current cardiac medications will consist of beta-stalin, vasodilator. Patient given another dose of lasix today. Patient in negative fluid balance and pedal edema along with breathing improving. - Time Time Spent with patient: 15-24 minutes Medications reviewed and adjusted accordingly: Yes Anticipated discharge: Home with Homehealth Within: within 24 hours
[2017-07-15] MEDS ORDERED: GUAIFENESIN 600 MG TABLET.SA PO ONE (21:00)
[2017-07-15] MEDS: MONTELUKAST SODIUM 10 MG TABLET PO SCH (22:43)
[2017-07-15] MEDS: TAMSULOSIN HCL 0.4 MG CAP.SR.24H PO SCH (22:43)
[2017-07-15] MEDS: FINASTERIDE 5 MG TABLET PO SCH (22:44)
[2017-07-15] MEDS: ATORVASTATIN CALCIUM 40 MG TABLET PO SCH (22:44)
[2017-07-16] MEDS: OXYCODONE-ACETAMINOPHEN 5-325 MG TABLET PO PRN ×5 (00:25→22:07)
[2017-07-16] MEDS: IPRATROPIUM/ALBUTEROL 0.5-2.5 MG/3 ML AMPUL NEB SCH ×4 (02:31→20:12)
[2017-07-16] MEDS: LANSOPRAZOLE 30 MG TAB.RAP.DR PO SCH (06:10)
[2017-07-16] MEDS: BUDESONIDE NEB 0.5 MG/2 ML AMPUL NEB SCH ×2 (08:12→20:12)
[2017-07-16] MEDS: INSULIN GLARGINE,HUM.REC.ANLOG 300 UNIT/3 ML INSULN.PEN SUBCUT SCH (08:44)
[2017-07-16] MEDS: INSULIN LISPRO 100 UNIT/ML 3 ML VIAL SUBCUT SCH ×3 (08:45→17:22)
[2017-07-16] MEDS: ISOSORBIDE MONONITRATE 30 MG TAB.ER.24H PO SCH (09:25)
[2017-07-16] MEDS: ASPIRIN 81 MG TABLET, ENT COATED PO SCH (09:25)
[2017-07-16] MEDS: PREDNISONE 20 MG TABLET PO SCH (09:25)
[2017-07-16] MEDS: RANOLAZINE 500 MG TAB.SR.12H PO SCH ×2 (09:25→22:30)
[2017-07-16] MEDS: METOPROLOL SUCCINATE 50 MG TAB.SR.24H PO SCH (09:26)
[2017-07-16] MEDS: PREGABALIN 75 MG CAPSULE PO SCH ×2 (09:26→22:30)
[2017-07-16] MEDS: DOCUSATE SODIUM 100 MG CAPSULE PO SCH ×2 (09:26→17:23)
[2017-07-16] MEDS: HYDRALAZINE HCL 25 MG TABLET PO SCH ×2 (09:26→22:30)
[2017-07-16] MEDS: DOXYCYCLINE HYCLATE 100 MG TABLET PO SCH ×2 (09:26→22:30)
[2017-07-16] MEDS: NEOMY SULF/POLYMYX B SULF/HC OTIC SUSP 10 ML AD SCH ×4 (09:36→22:30)
[2017-07-16] MEDS: INSULIN LISPRO 100 UNIT/ML 3 ML VIAL SUBCUT PRN ×3 (11:00→22:29)
[2017-07-16] MEDS ORDERED: IPRATROPIUM/ALBUTEROL 0.5-2.5 MG/3 ML AMPUL NEB SCH (16:00)
[2017-07-16] MEDS: FINASTERIDE 5 MG TABLET PO SCH (22:30)
[2017-07-16] MEDS: MONTELUKAST SODIUM 10 MG TABLET PO SCH (22:30)
[2017-07-16] MEDS: TAMSULOSIN HCL 0.4 MG CAP.SR.24H PO SCH (22:30)
[2017-07-16] MEDS: GUAIFENESIN 600 MG TABLET.SA PO SCH (22:30)
[2017-07-16] MEDS: ATORVASTATIN CALCIUM 40 MG TABLET PO SCH (22:30)
[2017-07-16] MEDS: ZOLPIDEM TARTRATE 5 MG TABLET PO PRN (23:23)
[2017-07-17] MEDS: IPRATROPIUM/ALBUTEROL 0.5-2.5 MG/3 ML AMPUL NEB SCH ×4 (02:01→19:57)
[2017-07-17] MEDS: OXYCODONE-ACETAMINOPHEN 5-325 MG TABLET PO PRN ×5 (06:57→23:45)
[2017-07-17] MEDS: LANSOPRAZOLE 30 MG TAB.RAP.DR PO SCH (06:57)
[2017-07-17] MEDS: BUDESONIDE NEB 0.5 MG/2 ML AMPUL NEB SCH ×2 (07:59→19:57)
[2017-07-17] MEDS: METOPROLOL SUCCINATE 50 MG TAB.SR.24H PO SCH (09:30)
[2017-07-17] MEDS: PREGABALIN 75 MG CAPSULE PO SCH ×2 (09:30→23:47)
[2017-07-17] MEDS: GUAIFENESIN 600 MG TABLET.SA PO SCH ×2 (09:30→23:47)
[2017-07-17] MEDS: PREDNISONE 20 MG TABLET PO SCH (09:31)
[2017-07-17] MEDS: ISOSORBIDE MONONITRATE 30 MG TAB.ER.24H PO SCH (09:31)
[2017-07-17] MEDS: ASPIRIN 81 MG TABLET, ENT COATED PO SCH (09:31)
[2017-07-17] MEDS: HYDRALAZINE HCL 25 MG TABLET PO SCH ×2 (09:31→23:46)
[2017-07-17] MEDS: DOCUSATE SODIUM 100 MG CAPSULE PO SCH ×2 (09:35→17:15)
[2017-07-17] MEDS: RANOLAZINE 500 MG TAB.SR.12H PO SCH ×2 (10:13→23:48)
[2017-07-17] MEDS: TORSEMIDE 20 MG TABLET PO SCH (10:13)
[2017-07-17] MEDS: DOXYCYCLINE HYCLATE 100 MG TABLET PO SCH ×2 (10:14→23:48)
[2017-07-17] MEDS: INSULIN GLARGINE,HUM.REC.ANLOG 300 UNIT/3 ML INSULN.PEN SUBCUT SCH (10:20)
[2017-07-17] MEDS: INSULIN LISPRO 100 UNIT/ML 3 ML VIAL SUBCUT SCH ×2 (10:21→15:40)
--- NOTE | 2017-07-17 10:22 | RADIOLOGY REPORT (SQ) ---
EXAM DESCRIPTION: CHEST PA/LAT COMPLETED DATE/TIME: 07/17/2017 9:56 am REASON FOR STUDY: cough COMPARISON: CT chest 06/10/2017 AP chest 06/10/2017, 08/24/2016, 07/20/2016 EXAM PARAMETERS: NUMBER OF VIEWS: two views TECHNIQUE: Digital Frontal and Lateral radiographic views of the chest acquired. RADIATION DOSE: NA LIMITATIONS: none FINDINGS: LUNGS AND PLEURA: Calcified pleural plaques are present over the left lateral costophrenic sulcus and left hemidiaphragm. No fluffy alveolar infiltrates worrisome for edema or pneumonia. No pleural effusion. No pneumothor ax. MEDIASTINUM AND HILAR STRUCTURES: No masses or contour abnormalities. HEART AND VASCULAR STRUCTURES: Mild cardiomegaly BONES: No acute findings. 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 Left-sided dual lead pacemaker OTHER: No other significant finding. IMPRESSION: No acute changes TECHNICAL DOCUMENTATION: JOB ID: [id number] [employer]- All Rights Reserved
[2017-07-17] MEDS: NEOMY SULF/POLYMYX B SULF/HC OTIC SUSP 10 ML AD SCH ×2 (10:24→19:00)
--- NOTE | 2017-07-17 14:36 | RADIOLOGY REPORT (SQ) ---
EXAM DESCRIPTION: VENOUS UNILATERAL LOWER COMPLETED DATE/TIME: 07/17/2017 2:11 pm REASON FOR STUDY: right lower extremity swelling with pain COMPARISON: 07/20/2016 TECHNIQUE: Dynamic and static chandler scale and color images acquired of the right leg venous system. S elected spectral images acquired with additional compression and augmentation maneuvers. The contrala teral common femoral vein and saphenofemoral junction were also imaged. Images stored on PACS. LIMITATIONS: None. FINDINGS: RIGHT COMMON FEMORAL: Normal phasicity, compression and augmentation. No visualized echogenic material on g ray scale. No defects on color images. FEMORAL: Normal compression and augmentation. No visualized echogenic material on chandler scale. No defe cts on color images. POPLITEAL: Normal compression, augmentation. No visualized echogenic material on chandler scale. No defec ts on color images. CALF VESSELS: Normal compression, augmentation. No visualized echogenic material on chandler scale. No de fects on color images. GSV : Proximal greater saphenous vein used for in situ arterial bypass. SSV: Normal compression, augmentation. No visualized echogenic material on chandler scale. No defects on color images. ANY DEEP VENOUS INSUFFICIENCY: Not evaluated. ANY EVIDENCE OF POPLITEAL CYST: No. OTHER: No other significant finding. LEFT COMMON FEMORAL VEIN AND SAPHENOFEMORAL JUNCTION: Normal phasicity, compression and augmentation. No visualized echogenic material on chandler scale. No de fects on color images. IMPRESSION: NO EVIDENCE OF DVT OR SVT IN THE RIGHT LEG. TECHNICAL DOCUMENTATION: JOB ID: [id number] [employer]- All Rights Reserved
--- NOTE | 2017-07-17 18:01 | PDOC PROGRESS REPORT ---
Subjective Progress Note for:: 07/16/17 Subjective:: Patient is a 76-year-old male admitted for acute bronchitis with COPD exacerbation and acute hypoxic respiratory failure. He states he is doing better. Patient had an episode of hypotension and is complaining of leg pain after walking off the floor to the cafeteria for romanian fries. Physical Exam Vital Signs: Temp Pulse Resp BP Pulse Ox 97.5 F 91 18 122/57 L 100 07/16/17 17:13 07/16/17 20:15 07/16/17 20:15 07/16/17 17:13 07/16/17 17:13 Intake & Output 07/15/17 07/16/17 07/17/17 06:59 06:59 06:59 Intake Total 963 1333 600 Balance 963 1333 600 Weight 104.2 kg General appearance: PRESENT: no acute distress, obese, well-developed Head exam: PRESENT: normocephalic Eye exam: PRESENT: EOMI, scleral icterus Ear exam: PRESENT: normal external ear exam Mouth exam: PRESENT: moist Neck exam: PRESENT: full ROM. ABSENT: carotid bruit, JVD, lymphadenopathy, thyromegaly Respiratory exam: PRESENT: clear to auscultation dipti, other - cough. ABSENT: rales, rhonchi, wheezes Cardiovascular exam: PRESENT: RRR. ABSENT: diastolic murmur, rubs, systolic murmur Pulses: PRESENT: normal dorsalis pedis pul Vascular exam: PRESENT: normal capillary refill GI/Abdominal exam: PRESENT: normal bowel sounds, soft. ABSENT: distended, guarding, mass, organolmegaly, rebound, tenderness Rectal exam: PRESENT: deferred Extremities exam: PRESENT: pedal edema - right leg. ABSENT: calf tenderness, clubbing Musculoskeletal exam: PRESENT: other - left bka with prosthesis. Neurological exam: PRESENT: alert, awake, oriented to person, oriented to place , oriented to time, oriented to situation, CN II-XII grossly intact. ABSENT: motor sensory deficit Psychiatric exam: PRESENT: appropriate affect, normal mood. ABSENT: homicidal ideation, suicidal ideation Skin exam: PRESENT: dry, intact, warm. ABSENT: cyanosis, rash Results Laboratory Results: 07/13/17 06:02 07/15/17 04:14 Impressions: Abdomen/Pelvis CT 07/08/17 14:02 IMPRESSION: Tiny splenic laceration without subcapsular hematoma or left upper quadrant free fluid. Question nondisplaced fracture anterior left 10th rib. Unruptured 5.4 x 5 cm infrarenal abdominal aortic aneurysm. 3 cm right common iliac artery aneurysm. 3.5 cm left common iliac artery aneurysm. Chest CT 07/08/17 14:02 IMPRESSION: Stable, chronic changes. Old granulomatous disease. Assessment & Plan - Diagnosis (1) Acute bronchitis Qualifiers: Bronchitis organism: unspecified organism Qualified Code(s): J20.9 - Acute bronchitis, unspecified Is this a current diagnosis for this admission?: Yes Plan: Patient sputum found to be growing MRSA. Continue doxycycline day 4/7. Continue p.o. steroids and nebs. (2) COPD with acute exacerbation Is this a current diagnosis for this admission?: Yes Plan: Continue nebs. Currently weaning steroids. Will continue antibiotics for a total of 7 days due to MRSA in sputum. (3) Acute on chronic respiratory failure with hypoxemia Is this a current diagnosis for this admission?: Yes Plan: Stable with supplemental oxygen. (4) Acute kidney injury superimposed on CKD Is this a current diagnosis for this admission?: Yes Plan: Creatinine peaked and is trending back down. (5) DVT prophylaxis Is this a current diagnosis for this admission?: Yes (6) Diabetes type 2, uncontrolled Qualifiers: Diabetes mellitus complication status: with circulatory complication Is this a current diagnosis for this admission?: Yes Plan: Uncontrolled due to steroids. Patient on lantus but requires additional coverage. Patient A1c is 7.6 therefore he is controlled when not on steroids. (7) Left rib fracture Qualifiers: Encounter type: initial encounter Rib fracture type: single rib Fracture type: closed Qualified Code(s): S22.32XA - Fracture of one rib, left side, initial encounter for closed fracture Is this a current diagnosis for this admission?: Yes Plan: Continue pain management along with incentive spirometry. Explained to patient that this will take time to feel better. (8) Otitis externa Is this a current diagnosis for this admission?: Yes Plan: Continue otic drops (9) Splenic laceration Qualifiers: Encounter type: subsequent encounter Qualified Code(s): S36.039D - Unspecified laceration of spleen, subsequent encounter Is this a current diagnosis for this admission?: Yes Plan: She evaluated by surgery who recommended patient be off Coumadin for 2 weeks. No surgical intervention is needed as patient should heal on its own. Patient off coumdin 1 week today. (10) History of pulmonary embolus (PE) Is this a current diagnosis for this admission?: Yes Plan: Patient normally anticoagulated with Coumadin however due to his splenic laceration it is recommend that he be off of it for 2 weeks. Patient has been off 1 week today. (11) Obesity (BMI 30.0-34.9) Is this a current diagnosis for this admission?: Yes Plan: Patient counseled on diet and physical activity. (12) Subtherapeutic anticoagulation Is this a current diagnosis for this admission?: Yes Plan: Recommended due to splenic laceration. Patient can resume coumadin 1 week from today or 07/23. (13) Constipation Qualifiers: Constipation type: chronic idiopathic constipation Qualified Code(s): K59.04 - Chronic idiopathic constipation Is this a current diagnosis for this admission?: Yes Plan: Resolved. Continue benefiber. (14) Chronic diastolic heart failure Is this a current diagnosis for this admission?: Yes Plan: Continue her current cardiac medications will consist of beta-stalin, vasodilator. Will decrease the dose of imdur. Patient started on torsemide. (15) Leg pain Qualifiers: Laterality: right Qualified Code(s): M79.604 - Pain in right leg Is this a current diagnosis for this admission?: Yes Plan: Will order doppler to rule out DVT. - Time Time Spent with patient: 15-24 minutes Anticipated discharge: Home Within: within 48 hours
--- NOTE | 2017-07-17 21:00 | PDOC PROGRESS REPORT ---
Subjective Progress Note for:: 07/17/17 Subjective:: Patient is a 76-year-old male admitted for acute bronchitis with COPD exacerbation and acute hypoxic respiratory failure. He states he is doing better. Patient states he still feels run down. Patient is worried that something may be going on in his chest. Patient is wanting to walk around a little. Explained to him that he could but has to let the nurse know if he leaves the floor. Physical Exam Vital Signs: Temp Pulse Resp BP Pulse Ox 98.1 F 59 L 19 163/62 H 96 07/17/17 15:49 07/17/17 15:49 07/17/17 15:49 07/17/17 15:49 07/17/17 16:49 Intake & Output 07/16/17 07/17/17 07/18/17 06:59 06:59 06:59 Intake Total 1333 1280 980 Balance 1333 1280 980 General appearance: PRESENT: no acute distress, obese, well-developed Head exam: PRESENT: normocephalic Eye exam: PRESENT: EOMI. ABSENT: scleral icterus Ear exam: PRESENT: normal external ear exam Mouth exam: PRESENT: moist Neck exam: ABSENT: carotid bruit, JVD, lymphadenopathy, thyromegaly Respiratory exam: PRESENT: clear to auscultation dipti, other - wet cough. ABSENT : rales, rhonchi, wheezes Cardiovascular exam: PRESENT: RRR. ABSENT: diastolic murmur, rubs, systolic murmur GI/Abdominal exam: PRESENT: normal bowel sounds, soft. ABSENT: distended, guarding, mass, organolmegaly, rebound, tenderness Rectal exam: PRESENT: deferred Extremities exam: PRESENT: full ROM, other - right lower extremity edema. ABSENT: calf tenderness, clubbing Musculoskeletal exam: PRESENT: other - left bka with prosthesis. Neurological exam: PRESENT: alert, awake, oriented to person, oriented to place , oriented to time, oriented to situation, CN II-XII grossly intact. ABSENT: motor sensory deficit Psychiatric exam: PRESENT: appropriate affect, normal mood. ABSENT: homicidal ideation, suicidal ideation Skin exam: PRESENT: dry, intact, warm. ABSENT: cyanosis, rash Results Laboratory Results: 07/13/17 06:02 07/15/17 04:14 Impressions: Abdomen/Pelvis CT 07/08/17 14:02 IMPRESSION: Tiny splenic laceration without subcapsular hematoma or left upper quadrant free fluid. Question nondisplaced fracture anterior left 10th rib. Unruptured 5.4 x 5 cm infrarenal abdominal aortic aneurysm. 3 cm right common iliac artery aneurysm. 3.5 cm left common iliac artery aneurysm. Chest CT 07/08/17 14:02 IMPRESSION: Stable, chronic changes. Old granulomatous disease. Chest X-Ray 07/17/17 00:00 IMPRESSION: No acute changes Venous Doppler Study 07/17/17 00:00 IMPRESSION: NO EVIDENCE OF DVT OR SVT IN THE RIGHT LEG. Assessment & Plan - Diagnosis (1) Acute bronchitis Qualifiers: Bronchitis organism: unspecified organism Qualified Code(s): J20.9 - Acute bronchitis, unspecified Is this a current diagnosis for this admission?: Yes Plan: Patient sputum found to be growing MRSA. Continue doxycycline day /. Continue p.o. steroids and nebs. No new findings on repeat CX ray done on 07/17. (2) COPD with acute exacerbation Is this a current diagnosis for this admission?: Yes Plan: Continue nebs. Currently weaning steroids. Patient to take last does of prednisone tomorrow. Will continue antibiotics for a total of 7 days due to MRSA in sputum. (3) Acute on chronic respiratory failure with hypoxemia Is this a current diagnosis for this admission?: Yes Plan: Stable with supplemental oxygen. (4) Acute kidney injury superimposed on CKD Is this a current diagnosis for this admission?: Yes Plan: Creatinine peaked and is trending back down. (5) DVT prophylaxis Is this a current diagnosis for this admission?: Yes Plan: No DVT prophylaxis at this time as patient has a splenic rupture. Furthermore patient is a amputee making SCDs difficult to use. (6) Diabetes type 2, uncontrolled Qualifiers: Diabetes mellitus complication status: with circulatory complication Is this a current diagnosis for this admission?: Yes Plan: PAtient blood glucose is better controlled today. Will use lantus and SSI. No scheduled bolus insulin as his blood glucoses is running low. Patient A1c is 7.6 therefore he is controlled when not on steroids. (7) Left rib fracture Qualifiers: Encounter type: initial encounter Rib fracture type: single rib Fracture type: closed Qualified Code(s): S22.32XA - Fracture of one rib, left side, initial encounter for closed fracture Is this a current diagnosis for this admission?: Yes Plan: Continue pain management along with incentive spirometry. Explained to patient that this will take time resolve. (8) Otitis externa Is this a current diagnosis for this admission?: Yes Plan: Discontinue otic drops. (9) Splenic laceration Qualifiers: Encounter type: subsequent encounter Qualified Code(s): S36.039D - Unspecified laceration of spleen, subsequent encounter Is this a current diagnosis for this admission?: Yes Plan: She evaluated by surgery who recommended patient be off Coumadin for 2 weeks. No surgical intervention is needed as patient should heal on its own. Patient off coumadin since admission. Should be off until 07/23. (10) History of pulmonary embolus (PE) Is this a current diagnosis for this admission?: Yes Plan: Patient normally anticoagulated with Coumadin however due to his splenic laceration it is recommend that he be off of it for 2 weeks. Patient should be off until 07/22. (11) Obesity (BMI 30.0-34.9) Is this a current diagnosis for this admission?: Yes Plan: Patient counseled on diet and physical activity. (12) Subtherapeutic anticoagulation Is this a current diagnosis for this admission?: Yes Plan: Recommended due to splenic laceration. Patient can resume can resume coumadin 07/23. (13) Constipation Qualifiers: Constipation type: chronic idiopathic constipation Qualified Code(s): K59.04 - Chronic idiopathic constipation Is this a current diagnosis for this admission?: Yes Plan: Resolved. (14) Chronic diastolic heart failure Is this a current diagnosis for this admission?: Yes Plan: Continue her current cardiac medications will consist of beta-stalin, vasodilator. Will decrease the dose of imdur to avoid profound hypotension. Patient started on torsemide. (15) Leg pain Qualifiers: Laterality: right Qualified Code(s): M79.604 - Pain in right leg Is this a current diagnosis for this admission?: Yes Plan: No DVT on doppler. - Time Time Spent with patient: 15-24 minutes Anticipated discharge: Home Within: within 24 hours
[2017-07-17] MEDS ORDERED: PREDNISONE 20 MG TABLET PO SCH (21:15)
[2017-07-17] MEDS: ATORVASTATIN CALCIUM 40 MG TABLET PO SCH (23:44)
[2017-07-17] MEDS: FINASTERIDE 5 MG TABLET PO SCH (23:45)
[2017-07-17] MEDS: TAMSULOSIN HCL 0.4 MG CAP.SR.24H PO SCH (23:45)
[2017-07-17] MEDS: MONTELUKAST SODIUM 10 MG TABLET PO SCH (23:46)
[2017-07-17] MEDS: INSULIN LISPRO 100 UNIT/ML 3 ML VIAL SUBCUT PRN (23:57)
[2017-07-18] MEDS: ZOLPIDEM TARTRATE 5 MG TABLET PO PRN (00:08)
[2017-07-18] MEDS: IPRATROPIUM/ALBUTEROL 0.5-2.5 MG/3 ML AMPUL NEB SCH ×2 (01:46→07:56)
[2017-07-18] MEDS: LANSOPRAZOLE 30 MG TAB.RAP.DR PO SCH (05:47)
[2017-07-18] MEDS: BUDESONIDE NEB 0.5 MG/2 ML AMPUL NEB SCH (07:56)
[2017-07-18] MEDS: INSULIN GLARGINE,HUM.REC.ANLOG 300 UNIT/3 ML INSULN.PEN SUBCUT SCH (08:33)
[2017-07-18] MEDS: INSULIN LISPRO 100 UNIT/ML 3 ML VIAL SUBCUT SCH ×2 (08:34→12:47)
[2017-07-18] MEDS: OXYCODONE-ACETAMINOPHEN 5-325 MG TABLET PO PRN (08:35)
[2017-07-18] MEDS: ASPIRIN 81 MG TABLET, ENT COATED PO SCH (10:00)
[2017-07-18] MEDS: PREGABALIN 75 MG CAPSULE PO SCH (10:00)
[2017-07-18] MEDS: HYDRALAZINE HCL 25 MG TABLET PO SCH (10:01)
[2017-07-18] MEDS: ISOSORBIDE MONONITRATE 30 MG TAB.ER.24H PO SCH (10:01)
[2017-07-18] MEDS: DOXYCYCLINE HYCLATE 100 MG TABLET PO SCH (10:01)
[2017-07-18] MEDS: METOPROLOL SUCCINATE 50 MG TAB.SR.24H PO SCH (10:01)
[2017-07-18] MEDS: RANOLAZINE 500 MG TAB.SR.12H PO SCH (10:02)
[2017-07-18] MEDS: TORSEMIDE 20 MG TABLET PO SCH (10:02)
[2017-07-18] MEDS: GUAIFENESIN 600 MG TABLET.SA PO SCH (10:02)
[2017-07-18] MEDS: NEOMY SULF/POLYMYX B SULF/HC OTIC SUSP 10 ML AD SCH ×2 (10:04)
[2017-07-18] MEDS: DOCUSATE SODIUM 100 MG CAPSULE PO SCH (10:21)
[2017-07-18 11:47] VITALS: BP 155/62
--- NOTE | 2017-07-18 19:36 | PDOC DISCHARGE SUMMARY ---
General - Admit/Disc Date/PCP Admission Date/Primary Care Provider: 07/08/17 17:22 Discharge Date: 07/18/17 - Discharge Diagnosis (1) Acute bronchitis Is this a current diagnosis for this admission?: Yes (2) Acute kidney injury superimposed on CKD Is this a current diagnosis for this admission?: Yes (3) Acute on chronic diastolic heart failure Is this a current diagnosis for this admission?: Yes (4) Acute on chronic respiratory failure with hypoxemia Is this a current diagnosis for this admission?: Yes (5) Acute on chronic systolic heart failure Is this a current diagnosis for this admission?: Yes (6) COPD (chronic obstructive pulmonary disease) Is this a current diagnosis for this admission?: Yes (7) Chronic kidney disease, stage 3 Is this a current diagnosis for this admission?: Yes (8) Contusion of rib on left side Is this a current diagnosis for this admission?: Yes (9) DM type 2 (diabetes mellitus, type 2) Is this a current diagnosis for this admission?: Yes (10) Elevated liver enzymes Is this a current diagnosis for this admission?: Yes (11) History of pulmonary embolus (PE) Is this a current diagnosis for this admission?: Yes (12) Splenic laceration Is this a current diagnosis for this admission?: Yes - Additional Information Resuscitation Status: Full Code Discharge Diet: Cardiac, Diabetic Discharge Activity: Activity As Tolerated Home Medications: Allopurinol [Zyloprim 300 mg Tablet] 150 mg PO DAILY 06/10/17 Aspirin [Aspirin EC] 81 mg PO DAILY 06/10/17 Cholecalciferol (Vitamin D3) [Vitamin D3] 400 unit PO DAILY 06/10/17 Docusate Sodium [Colace 100 mg Capsule] 100 mg PO BID 06/10/17 Hydralazine HCl [Apresoline 25 mg Tablet] 25 mg PO Q12 06/10/17 Isosorbide Mononitrate [Isosorbide Mononitrate ER] 90 mg PO DAILY 06/10/17 Magnesium Oxide [Magnesium] 400 mg PO BID 06/10/17 Metoprolol Succinate [Toprol Xl 50 mg Tab.sr] 50 mg PO DAILY 06/10/17 Nitroglycerin [Nitrostat] 0.4 mg SL Q5MP PRN 06/10/17 Omeprazole 20 mg PO QAM 06/10/17 Pregabalin [Lyrica] 150 mg PO Q12 06/10/17 Ranolazine [Ranexa 500 mg Tab.sr] 1,000 mg PO Q12 06/10/17 Zolpidem Tartrate [Ambien 5 mg Tablet] 5 mg PO HSP PRN 06/10/17 Multivitamin/Iron/Folic Acid [Centrum Adults Tablet] 1 each PO DAILY 06/11/17 Vitamin B Complex [B Complex] 1 each PO DAILY 06/11/17 Atorvastatin Calcium [Lipitor 40 mg Tablet] 40 mg PO QHS 07/09/17 Albuterol Sulfate [Ventolin HFA MDI 18 GM] 1 - 2 puff IH Q4H PRN #1 mdi Budesonide/Formoterol Fumarate [Symbicort HFA 160-4.5 mcg Inhaler 6 gm] 2 puff IH Q12 #1 inhaler 07/18/17 Bumetanide [Bumex 2 mg Tablet] 2 tab PO BID #60 tablet 07/18/17 Doxycycline Hyclate [Vibramycin 100 mg Tablet] 100 mg PO Q12 #8 tablet 07/18/17 Finasteride [Proscar 5 mg Tablet] 5 mg PO QHS #30 tablet 07/18/17 Hydrocodone Bit/Acetaminophen [Hydrocodon-Acetaminophn 10-325] 1 each PO Q6HP PRN #12 tablet 07/18/17 Insulin Glargine,Hum.rec.anlog [Lantus Insulin 100 Unit/mL] 35 unit SUBCUT QAM # 1 packet 07/18/17 Lidocaine [Lidoderm 5% (700 mg) Transdermal Patch] 1 patch TP DAILY #30 adh..patch 07/18/17 Montelukast Sodium [Singulair 10 mg Tablet] 10 mg PO QHS #30 tablet 07/18/17 Neomy Sulf/Polymyx B Sulf/Hc [Cortisporin Otic Susp 10 ml] 4 drop AD QID #1 bottle 07/18/17 Prednisone [Deltasone 20 mg Tablet] 20 mg PO DAILY #5 tablet 07/18/17 Tamsulosin HCl [Flomax 0.4 mg Cap.sr] 0.8 mg PO QHS #60 cap.sr.24h 07/18/17 Tiotropium [place] [Spiriva Handihaler 5 Cap/Kit (18 Mcg/Cap)] 1 cap IH DAILY # 1 kit 07/18/17 History of Present Illness History of Present Illness: TRUONG PINK is a 76 year old male presents to emergency room with complaint of left side pain that resulted from a fall at home on . Patient states that he lost his balance when he was ambulating and fell. Patient states that he blames his prostatic leg for the reason why he fell. Patient stated that he landed on his left side and since then has had severe pain on his left side. Patient also reports that for approximately a week he has been coughing frequently. Patient states he has been coughing up a chandler phlegm occasionally. reports the patient has not been eating much because of him not feeling well. Hospital Course Hospital Course: Patient was found to have a small splenic laceration. Surgery was consulted for this. At this time we recommend continuing to hold his anticoagulation despite his past history of PE. Patient was found to have acute COPD exacerbation he was placed on steroids and his sputum did grow out MRSA which was sensitive to doxycycline. Patient was started on doxycycline and had improvement of his overall condition. Patient did however have some acute on chronic renal failure which improved initially with fluids. Patient however did suffer from some mild diastolic overload and was restarted on his diuretics. Patient was doing well and discharged in stable condition. Physical Exam Vital Signs: Temp Pulse Resp BP Pulse Ox 98.0 F 95 20 155/62 H 98 07/18/17 11:45 07/18/17 11:45 07/18/17 11:45 07/18/17 11:45 07/18/17 11:45 Intake & Output 07/17/17 07/18/17 07/19/17 06:59 06:59 06:59 Intake Total 1280 980 240 Balance 1280 980 240 Weight 108 kg Exam: General: Awake alert and orientedx3, no acute respiratory distress HEENT: AT/NC, PERRL, EOMI, oropharynx is moist, pink, no scleral icterus, no conjunctival injection Neck: no JVD, trachea midline Chest: CTAB CV: Regular rate and rhythm, normal S1 and S2, no murmur, rub, or gallop Abdomen: Soft, nontender to palpation, nondistended, active bowel sounds; no rebound, rigidity, or guarding Extremities: No cyanosis, clubbing; 2+ edema LLE, RLE BKA Neuro: Cranial nerves II through XII are grossly intact without focal deficits; awake alert and orientedx3 Psych: Normal mood and affect Results Laboratory Results: 07/13/17 06:02 07/15/17 04:14 Impressions: Abdomen/Pelvis CT 07/08/17 14:02 IMPRESSION: Tiny splenic laceration without subcapsular hematoma or left upper quadrant free fluid. Question nondisplaced fracture anterior left 10th rib. Unruptured 5.4 x 5 cm infrarenal abdominal aortic aneurysm. 3 cm right common iliac artery aneurysm. 3.5 cm left common iliac artery aneurysm. Chest CT 07/08/17 14:02 IMPRESSION: Stable, chronic changes. Old granulomatous disease. Chest X-Ray 07/17/17 00:00 IMPRESSION: No acute changes Venous Doppler Study 07/17/17 00:00 IMPRESSION: NO EVIDENCE OF DVT OR SVT IN THE RIGHT LEG. Qualifiers PATEINT BEING DISCHARGED WITH ANY OF THE FOLLOWING DIAGNOSIS?: Heart Failure HF Pt being discharged on ACEI for LVEF less than 40%?: No Reason(s) for not prescribing ACEI:: Contraindicated - ckd HF Pt being discharged on ARBS for LVEF less than 40%?: No Reason(s) for not prescribing ARBS:: Contraindicated - ckd HF Pt with Afib discharged with Warfarin?: No Reason(s) for not prescribing Warfarin:: Contraindicated - splenic lac HF Pt discharged on evidence-based Beta Roger:: Yes Plan Time Spent: Less than 30 Minutes
== END 2017-07-18 12:40 | disposition home or self-care (01) | DRG 190 ==
LOC: ER 13:13 → EH 17:22 → UNDOADMIN 17:27 → 4N 19:37
PROC: 3E0F73Z Introduction of Anti-inflammatory into Respiratory Tract, Via Natural or Artificial Opening (ICD-10-PCS; principal; 2017-07-09)
DX: J44.0 Chronic obstructive pulmonary disease with (acute) lower respiratory infection (principal); I50.43 Acute on chronic combined systolic (congestive) and diastolic (congestive) heart failure; J96.01 Acute respiratory failure with hypoxia; S36.039A Unspecified laceration of spleen, initial encounter; S22.32XA Fracture of one rib, left side, initial encounter for closed fracture; N17.9 Acute kidney failure, unspecified; I13.0 Hypertensive heart and chronic kidney disease with heart failure and stage 1 through stage 4 chronic kidney disease, or unspecified chronic kidney disease; J20.9 Acute bronchitis, unspecified; J44.1 Chronic obstructive pulmonary disease with (acute) exacerbation; I48.91 Unspecified atrial fibrillation; I12.9 Hypertensive chronic kidney disease with stage 1 through stage 4 chronic kidney disease, or unspecified chronic kidney disease; E11.22 Type 2 diabetes mellitus with diabetic chronic kidney disease; N18.3 Chronic kidney disease, stage 3 (moderate); I25.10 Atherosclerotic heart disease of native coronary artery without angina pectoris; I25.2 Old myocardial infarction; E11.51 Type 2 diabetes mellitus with diabetic peripheral angiopathy without gangrene; B95.62 Methicillin resistant Staphylococcus aureus infection as the cause of diseases classified elsewhere; N40.0 Benign prostatic hyperplasia without lower urinary tract symptoms; R79.1 Abnormal coagulation profile; H60.91 Unspecified otitis externa, right ear; W18.30XA Fall on same level, unspecified, initial encounter; Y92.009 Unspecified place in unspecified non-institutional (private) residence as the place of occurrence of the external cause; Z86.711 Personal history of pulmonary embolism; Z97.14 Presence of artificial left leg (complete) (partial); E66.9 Obesity, unspecified; Z89.512 Acquired absence of left leg below knee; Z95.810 Presence of automatic (implantable) cardiac defibrillator; Z88.1 Allergy status to other antibiotic agents; Z79.01 Long term (current) use of anticoagulants; Z79.4 Long term (current) use of insulin; M19.90 Unspecified osteoarthritis, unspecified site; Z79.899 Other long term (current) drug therapy; Z88.0 Allergy status to penicillin; Z95.1 Presence of aortocoronary bypass graft; Z68.32 Body mass index [BMI] 32.0-32.9, adult
CPT/HCPCS: 36415; 71020; 71260; 74177; 80048; 80053; 81001; 82550; 82962; 83036; 83605; 83735; 84484; 85025; 85610; 87040; 87070; 87077; 87186; 87205; 93005; 93010; 93971; 94667; 94799; 96374; 96375; 99285; G8978-GP; G8979-GP; G8980-GP; J0456; J0696; J1815; J1940; J2270; J2405; J3490; J7030; J7060; J7512; J7620

== ENCOUNTER → 2017-08-03 | Outpatient (CLI) | payer MEDICARE ==
[2017-08-03 14:56] LABS: PROTHROMBIN TIME 36.4 SEC (11.4-15.4)
== END ==
LOC: OD 13:50
PROVIDERS: ATTEND Internal Medicine
DX: I82.409 Acute embolism and thrombosis of unspecified deep veins of unspecified lower extremity (principal); Z79.01 Long term (current) use of anticoagulants
CPT/HCPCS: 36415; 85610

== ENCOUNTER → 2017-09-07 | Outpatient (CLI) | payer MEDICARE ==
[2017-09-07 11:38] LABS: PROTHROMBIN TIME 28.6 SEC (11.4-15.4)
== END ==
LOC: OD 10:16
PROVIDERS: ATTEND Internal Medicine
DX: I82.401 Acute embolism and thrombosis of unspecified deep veins of right lower extremity (principal); Z79.01 Long term (current) use of anticoagulants
CPT/HCPCS: 36415; 85610

== ENCOUNTER 2017-10-03 11:57 | Inpatient (IN) | payer MEDICARE ==
[2017-10-03] MEDS ORDERED: ASPIRIN 81 MG TABLET, CHEWABLE PO ONE (12:07)
[2017-10-03] MEDS ORDERED: CEFTRIAXONE 1 GM/D5W RTU 1 GM/50 ML RTUPB IV ONE (12:26)
[2017-10-03] MEDS ORDERED: FUROSEMIDE INJ/PF 40 MG/4 ML SDV IV ONE (12:27)
[2017-10-03] MEDS ORDERED: ALBUTEROL SULFATE 0.083% NEB 2.5 MG/3 ML AMPUL NEB ONE (12:28)
--- NOTE | 2017-10-03 12:32 | ER Document Report ---
ED General - General Mode of Arrival: Ambulatory Information source: Patient TRAVEL OUTSIDE OF THE [place] IN LAST 30 DAYS: No <TAYO PADRON - Last Filed: 10/03/17 12:33> <NATHAN WAY - Last Filed: 10/03/17 17:57> - General Chief Complaint: Shortness Of Breath Stated Complaint: SHORTNESS OF BREATH Time Seen by Provider: 10/03/17 12:05 Notes: Patient is a 77 year old male with a history of CHF presents to the emergency department accompanied by daughter complaining of difficulty breathing as well as possible wound infection. Patient was seen at [facility] 1 week ago for a hematoma to the right leg. Patient has since fallen and another wound has appeared distally. Patient also states he has been short of breath and had some wheezing for 2 weeks now with chest discomfort which he rates a 4/5. Patient denies any fevers. Patient PCP is Dr. Petr Zavala. (TAYO PADRON) - Related Data Allergies/Adverse Reactions: Penicillins Allergy (Unknown, Verified 05/17/17 10:40) vancomycin [Vancomycin] Adverse Reaction (Verified 08/24/16 13:13) Home Medications: Current Home Medications Albuterol Sulfate [Ventolin HFA MDI 18 GM] 1 puff IH Q6HP PRN 10/03/17 [History] Allopurinol [Zyloprim 300 mg Tablet] 150 mg PO DAILY 10/03/17 [History] Aspirin [Aspirin EC] 81 mg PO DAILY 10/03/17 [History] Atorvastatin Calcium [Lipitor 40 mg Tablet] 40 mg PO QHS 10/03/17 [History] Budesonide/Formoterol Fumarate [Symbicort Hfa 160-4.5 Mcg Inhaler 6 gm] 2 puff IH Q12 10/03/17 [History] Bumetanide [Bumex 2 mg Tablet] 2 mg PO Q12 10/03/17 [History] Cholecalciferol (Vitamin D3) [Vitamin D3 400 Unit Tablet] 400 unit PO DAILY [History] Dronedarone Hydrochloride [Multaq 400 Mg Tablet] 400 mg PO Q12 10/03/17 [History ] Finasteride [Proscar 5 mg Tablet] 5 mg PO QHS 10/03/17 [History] Hydralazine HCl [Apresoline 25 mg Tablet] 25 mg PO Q12 10/03/17 [History] Hydrocodone Bit/Acetaminophen [Hydrocodon-Acetaminophn 10-325] 1 tab PO Q6HP PRN 10/03/17 [History] Insulin Glargine,Hum.rec.anlog [Lantus Solostar] 8 unit SQ QHS 10/03/17 [History ] Isosorbide Mononitrate [Isosorbide Mononitrate ER] 90 mg PO DAILY 10/03/17 [ History] Magnesium Oxide [Mag-Ox 400 mg Tablet] 400 mg PO BID 10/03/17 [History] Metolazone [Zaroxolyn 2.5 Mg Tablet] 2.5 mg PO MOWEFR@1000 10/03/17 [History] Metoprolol Succinate [Toprol Xl 50 mg Tab.sr] 50 mg PO DAILY 10/03/17 [History] Montelukast Sodium [Singulair 10 mg Tablet] 10 mg PO QHS 10/03/17 [History] Multivitamin [Tab-A-Maris (Multiple Vitamin) Tablet] 1 tab PO DAILY 10/03/17 [ History] Omeprazole 20 mg PO DAILY 10/03/17 [History] Polyethylene Glycol 3350 [Miralax Powder 17 gm/Packet] 1 packet PO QPMP PRN [History] Pregabalin [Lyrica] 150 mg PO Q12 10/03/17 [History] Ranolazine [Ranexa 500 mg Tab.sr] 1,000 mg PO Q12 10/03/17 [History] Sennosides/Docusate 8.6-50 mg [Senna Plus Tablet] 1 tab PO BID 10/03/17 [History ] Tamsulosin HCl [Flomax 0.4 mg Cap.sr] 0.8 mg PO QHS 10/03/17 [History] Terazosin HCl 1 mg PO DAILY 10/03/17 [History] Tiotropium [place] [Spiriva Handihaler 5 Cap/Kit (18 Mcg/Cap)] 1 cap IH DAILY [History] Warfarin Sodium [Coumadin 2 mg Tablet] 2 mg PO QHS 10/03/17 [History] Zolpidem Tartrate [Ambien 5 mg Tablet] 5 mg PO HSP PRN 10/03/17 [History] Past Medical History - General Information source: Patient, Relative - Social History Smoking Status: Former Smoker Cigarette use (# per day): No Chew tobacco use (# tins/day): No Smoking Education Provided: No Frequency of alcohol use: None Drug Abuse: None Family History: Reviewed & Not Pertinent, CAD, COPD - Past Medical History Cardiac Medical History: Reports: Hx Atrial Fibrillation, Hx Congestive Heart Failure, Hx Coronary Artery Disease, Hx Heart Attack - x6, Hx Hypercholesterolemia, Hx Hypertension, Hx Peripheral Vascular Disease, Hx Pulmonary Embolism Pulmonary Medical History: Reports: Hx Asthma, Hx Bronchitis, Hx COPD, Hx Sleep Apnea - without c-pap Endocrine Medical History: Reports: Hx Diabetes Mellitus Type 2 Renal/ Medical History: Reports: Hx Benign Prostatic Hyperplasia, Hx Kidney Stones GI Medical History: Reports: Hx Gastroesophageal Reflux Disease Musculoskeltal Medical History: Reports Hx Arthritis Past Surgical History: Reports: Hx Abdominal Surgery - AAA, Hx Cardiac Catheterization, Hx Cardiac Surgery - triple bypass, Hx Coronary Artery Bypass Graft - quadruple, Hx Coronary Stent, Hx Internal Defibrillator, Hx Open Heart Surgery - LATE , Hx Orthopedic Surgery - Left BKA, Hx Pacemaker - Immunizations Hx Diphtheria, Pertussis, Tetanus Vaccination: Yes Hx Pneumococcal Vaccination: 07/04/08 <TAYO PADRON - Last Filed: 10/03/17 12:33> Review of Systems - Review of Systems Constitutional: No symptoms reported EENT: No symptoms reported Cardiovascular: See HPI, Chest pain - chest tightness Respiratory: See HPI, Cough, Short of breath, Wheezing Gastrointestinal: No symptoms reported Genitourinary: No symptoms reported Male Genitourinary: No symptoms reported Musculoskeletal: See HPI Skin: No symptoms reported Hematologic/Lymphatic: No symptoms reported Neurological/Psychological: No symptoms reported -: Yes All other systems reviewed and negative <TAYO PADRON - Last Filed: 10/03/17 12:33> Physical Exam <TAYO PADRON - Last Filed: 10/03/17 12:33> <NATHAN WAY - Last Filed: 10/03/17 17:57> - Vital signs Vitals: Temp Resp BP Pulse Ox 98.5 F 16 116/59 L 96 10/03/17 12:09 10/03/17 12:09 10/03/17 12:09 10/03/17 12:09 - Notes Notes: GENERAL: Alert, interacts well. No acute distress. HEAD: Normocephalic, atraumatic. EYES: Pupils equal, round, and reactive to light. Extraocular movements intact. ENT: Oral mucosa moist, tongue midline. NECK: Full range of motion. Supple. Trachea midline. LUNGS: Diffuse expiratory wheezing, diffuse inspiratory rales, poor air movement. No respiratory distress. HEART: Patient has a defibrillator. 2/6 holosystolic murmur. No gallops, or rubs. ABDOMEN: Soft, non-tender. Non-distended. Bowel sounds present in all 4 quadrants. EXTREMITIES: Left BKA. Dorsalis pedis pulses 2+, posterior tibia pulses 1+. Chronic circumferential erythema and woody erythema to the right lower extremity. Bright erythema located below the right knee with 1+ pitting edema, not circumferential, which is tender to palpation. Right lower extremity has a posterior skin tear approximately 5cm with some bloody exudate. No purulent discharge. Well healing ulcer located distal anterior tibia, good granulation. NEUROLOGICAL: Alert and oriented x3. Normal speech. Biceps and patellar DTRs 2+ bilaterally. PSYCH: Normal affect, normal mood. SKIN: See extremities. (TAYO PADRON) correction right lower extremity has a superficial skin tear anteriorly, it should read woody edema not woody erythema and there is bright red erythema located below the right knee. (NATHAN WAY) Course <TAYO PADRON - Last Filed: 10/03/17 12:33> - Laboratory Result Diagrams: 10/03/17 13:28 10/03/17 12:07 <[address] - Last Filed: 10/03/17 17:57> - Re-evaluation Re-evalutation: 10/03/17 15:34 CBC shows mild anemia with hemoglobin 12.8, low platelets 77, no leukocytosis, coags show a therapeutic INR 2.08, no significant acidosis on the venous blood gas, in fact there is no acidosis whatsoever. Chemistries show low potassium at 3.2 likely related to his diuretic use, acute on chronic renal failure with a BUN of 74 and creatinine of 2.85, lactic acid normal, cardiac enzymes initially negative, proBNP moderately elevated at 630, chest x-ray shows no acute process. Wheezing on examination has resolved after one breathing treatment though he still has rales. Patient was given Lasix for his CHF and Rocephin for his cellulitis. Discussed patient with Dr. Edge who instructed me to call Dr. Chávez, Dr. Chávez accepts the patient to her service as admission to the IMCU. 10/03/17 15:40 ([address]) - Vital Signs Vital signs: Temp Pulse Resp BP Pulse Ox 98.5 F 18 110/47 L 96 10/03/17 12:09 10/03/17 17:00 10/03/17 14:01 10/03/17 17:00 - Laboratory Laboratory results interpreted by me: 10/03/17 10/03/17 10/03/17 12:07 12:07 13:28 RBC 4.20 L Hgb 12.8 L RDW 17.2 H Plt Count 77 L Monocytes % 15.4 H PT VBG pH VBG HCO3 Sodium 145.8 H Potassium 3.2 L Chloride 96 L Carbon Dioxide 39 H BUN 74 H Creatinine 2.85 H Est GFR ( Amer) 26 L Est GFR (Non-Af Amer) 22 L Glucose 137 H Creatine Kinase 29 L NT-Pro-B Natriuret Pep 630 H Total Protein 6.0 L Albumin 3.3 L 10/03/17 10/03/17 13:28 13:28 RBC Hgb RDW Plt Count Monocytes % PT 24.5 H VBG pH 7.45 H VBG HCO3 41.3 H Sodium Potassium Chloride Carbon Dioxide BUN Creatinine Est GFR ( Amer) Est GFR (Non-Af Amer) Glucose Creatine Kinase NT-Pro-B Natriuret Pep Total Protein Albumin - EKG Interpretation by Me Additional EKG results interpreted by me: 10/03/17 15:41 EKG shows an atrially paced rhythm with interventricular conduction delay, normal axis, no ST segment elevations or depressions, nonspecific T-wave inversions in aVL and some flattening in lead I no significant change from prior EKG on 07/08/2017 per my interpretation. (NATHAN WAY) Discharge <TAYO PADRON - Last Filed: 10/03/17 12:33> - Discharge Admitting Provider: Hospitalist - [facility] Admitted: IMCU <NATHAN WAY - Last Filed: 10/03/17 17:57> - Discharge Clinical Impression: Cellulitis of right lower extremity, Acute kidney injury superimposed on CKD, COPD exacerbation CHF exacerbation Qualifiers: Congestive heart failure type: unspecified congestive heart failure type Qualified Code(s): I50.9 - Heart failure, unspecified Hypertension Qualifiers: Hypertension type: essential hypertension Qualified Code(s): I10 - Essential ( primary) hypertension Condition: Fair Disposition: ADMITTED INPATIENT Scribe Attestation: 10/03/17 17:57 I personally performed the services described in the documentation, reviewed and edited the documentation which was dictated to the scribe in my presence, and it accurately records my words and actions. (NATHAN WAY) Scribe Documentation - Scribe Written by Clairee:: Robert Corbin, 10/03/2017 12:45 acting as scribe for :: Samir <TAYO PADRON - Last Filed: 10/03/17 12:33>
--- NOTE | 2017-10-03 12:45 | EKG REPORT ---
SEVERITY:- ABNORMAL ECG - ATRIAL-PACED RHYTHM NONSPECIFIC INTRAVENTRICULAR CONDUCTION DELAY INFERIOR INFARCT, OLD LATERAL INFARCT, AGE INDETERMINATE CONSIDER ANTERIOR INFARCT : Confirmed by: Natalie Biggs MD 03-Oct-2017 12:45:24
--- NOTE | 2017-10-03 12:52 | RADIOLOGY REPORT (SQ) ---
EXAM DESCRIPTION: CHEST SINGLE VIEW COMPLETED DATE/TIME: 10/03/2017 12:43 pm REASON FOR STUDY: SOB, hypoxic COMPARISON: 07/17/2017 EXAM PARAMETERS: NUMBER OF VIEWS: One view. TECHNIQUE: Single frontal radiographic view of the chest acquired. RADIATION DOSE: NA LIMITATIONS: None. FINDINGS: LUNGS AND PLEURA: Stable chronic lung change without new opacities, masses or pneumothorax . No pleural effusion. MEDIASTINUM AND HILAR STRUCTURES: No masses. Contour normal. HEART AND VASCULAR STRUCTURES: Heart stable in size. Normal vasculature. BONES: No acute findings. HARDWARE: Stable. OTHER: No other significant finding. IMPRESSION: NO ACUTE CARDIOPULMONARY PROCESS. NO SIGNIFICANT CHANGE FROM PRIOR STUDY. TECHNICAL DOCUMENTATION: JOB ID: [id number] [email or web address]- All Rights Reserved
[2017-10-03] MEDS ORDERED: HYDROCODONE/ACETAMINOPHEN 10-325 MG TABLET PO ONE (13:08)
[2017-10-03] MEDS ORDERED: HYDROMORPHONE HCL INJ/PF 2 MG/ML AMPULE IV ONE (13:33)
[2017-10-03 13:52] LABS: INTERNATIONAL RATION (INR) 2.08; PROTHROMBIN TIME 24.5 SEC (11.4-15.4)
[2017-10-03 13:54] LABS: VENOUS BLOOD BASE EXCESS 14.4 mmol/L; VENOUS BLOOD HCO3 41.3 mmol/L (20-32); VENOUS BLOOD PCO2 61.2 mmHg (35-63); VENOUS BLOOD PH 7.45 (7.30-7.42)
[2017-10-03 14:02] LABS: ABSOLUTE EOSINOPHILS # (AUTO) 0.1 10^3/uL (0.0-0.6); ABSOLUTE MONOCYTES (AUTO) 1.1 10^3/uL (0.1-1.4); ABSOLUTE NEUT (AUTO) 4.9 10^3/uL (1.7-8.2); BASOPHILS % (AUTO) 0.4 % (0-2); EOSINOPHILS % (AUTO) 1.5 % (0-6); HEMATOCRIT 38.7 % (37.9-51.0); HEMOGLOBIN 12.8 g/dL (13.5-17.0); LYMPHOCYTES % (AUTO) 14.4 % (13-45); MEAN CORPUSCULAR HEMOGLOBIN 30.4 pg (27.0-33.4); MEAN CORPUSCULAR VOLUME 92 fl (80-97); MONOCYTES % (AUTO) 15.4 % (3-13); RED CELL DISTRIBUTION WIDTH 17.2 % (11.5-14.0); SEGMENTED NEUTROPHILS % (AUTO) 68.3 % (42-78); TOTAL CELLS COUNTED % (AUTO) 100 %; WHITE BLOOD COUNT 7.1 10^3/uL (4.0-10.5)
[2017-10-03 14:12] LABS: ALANINE AMINOTRANSFERASE 25 U/L (21-72); ALBUMIN 3.3 g/dL (3.5-5.0); ALKALINE PHOSPHATASE 112 U/L (38-126); ANION GAP 11 (5-19); ASPARTATE AMINO TRANSFERASE 18 U/L (17-59); BILIRUBIN,DIRECT 0.3 mg/dL (0.0-0.4); BILIRUBIN,TOTAL 0.6 mg/dL (0.2-1.3); BLOOD UREA NITROGEN 74 mg/dL (7-20); CARBON DIOXIDE 39 mmol/L (22-30); CHLORIDE 96 mmol/L (98-107); CREATINE KINASE 29 U/L (55-170); GLUCOSE 137 mg/dL (75-110); POTASSIUM 3.2 mmol/L (3.6-5.0); SODIUM 145.8 mmol/L (137-145)
[2017-10-03 14:23] LABS: CREATINE KINASE MB 0.54 ng/mL (<4.55); TROPONIN I 0.028 ng/mL
[2017-10-03 14:26] LABS: PLATELET COUNT 77 10^3/uL (150-450)
--- NOTE | 2017-10-03 16:47 | PDOC H&P ---
History of Present Illness Admission Date/PCP: 10/03/17 15:53 Patient complains of: Increasing shortness of breath over 2 weeks. History of Present Illness: TRUONG PINK is a 77 year old male that has multiple comorbid medical conditions to include chronic kidney disease which appears to be stage II, chronic diastolic congestive heart failure and severe underlying peripheral vascular disease. Has multiple and frequent hospitalizations. He was last hospitalized here in July 2017 for a splenic laceration that occurred after a fall. Most recently, he was admitted to [facility]. Apparently , his AICD was firing at home on a frequent basis. He was recently started on Multaq 400 mg twice a day. In addition, he started taking potassium of his own accord. He was not given a prescription for potassium. He stated that the potassium was helping with his leg cramps. When he presented to the emergency department today his BUN was 74 and his creatinine 2.85. Previously his creatinine has been around 1.5-1.6. In the emergency department he was diagnosed with acute decompensated congestive heart failure and given Lasix. His BNP is only 630. He also has chronic lower extremity wounds. His daughter- in-law is caring for his wounds with a silver impregnated bandage. He also sees Dr. Morel at the wound care clinic. Past Medical History Cardiac Medical History: Reports: Atrial Fibrillation, Congestive Heart Failure , Coronary Artery Disease, Myocardial Infarction - x6, Hyperlipidema, Hypertension, Peripheral Vascular Disease, Pulmonary Embolism Pulmonary Medical History: Reports: Asthma, Bronchitis, Chronic Obstructive Pulmonary Disease (COPD), Sleep Apnea - without c-pap Denies: Pneumonia, Respiratory Failure, Tuberculosis Neurological Medical History: Denies: Seizures Endocrine Medical History: Reports: Diabetes Mellitus Type 2 Denies: Hyperthyroidism, Hypothyroidism Renal/ Medical History: Denies: End Stage Renal Disease Malignancy Medical History: Denies: Leukemia, Lung Cancer GI Medical History: Reports: Gastroesophageal Reflux Disease Denies: Hepatitis, Hiatal Hernia Musculoskeltal Medical History: Reports: Arthritis Denies: Fibromyalgia Psychiatric Medical History: Denies: Dementia, Depression Hematology: Denies: Anemia, Hemophilia, Sickle Cell Disease Infectious Medical History: Denies: HIV Past Surgical History Past Surgical History: Reports: Cardiac Catheterization, Coronary Artery Bypass Graft - quadruple, Coronary Stent, Internal Defibrillator, Orthopedic Surgery - Left BKA, Pacemaker Denies: Appendectomy, Cholecystectomy, Gastric Bypass Surgery, Herniorrhaphy , Tonsillectomy Social History Smoking Status: Former Smoker Frequency of Alcohol Use: None Hx Recreational Drug Use: No Drugs: None Hx Prescription Drug Abuse: No - Advance Directive Resuscitation Status: Full Code Surrogate healthcare decision maker:: The patient's surrogate decision maker is his , Joey Pink. She can be reached on her cell phone at area code . Her home telephone number is . Family History Family History: Reviewed & Not Pertinent, CAD, COPD Parental Family History Reviewed: Yes Children Family History Reviewed: Yes Sibling(s) Family History Reviewed.: Yes - Parents lived to be in their 90s. Siblings were healthy. Half brother of heart disease in his 70s. Medication/Allergy Home Medications: Albuterol Sulfate [Ventolin HFA MDI 18 GM] 1 puff IH Q6HP PRN 10/03/17 Allopurinol [Zyloprim 300 mg Tablet] 150 mg PO DAILY 10/03/17 Aspirin [Aspirin EC] 81 mg PO DAILY 10/03/17 Atorvastatin Calcium [Lipitor 40 mg Tablet] 40 mg PO QHS 10/03/17 Budesonide/Formoterol Fumarate [Symbicort Hfa 160-4.5 Mcg Inhaler 6 gm] 1 puff IH Q12 10/03/17 Bumetanide [Bumex 2 mg Tablet] 2 mg PO Q12 10/03/17 Cholecalciferol (Vitamin D3) [Vitamin D3 400 Unit Tablet] 400 unit PO DAILY Dronedarone Hydrochloride [Multaq 400 Mg Tablet] 400 mg PO Q12 10/03/17 Finasteride [Proscar 5 mg Tablet] 5 mg PO DAILY 10/03/17 Hydralazine HCl [Apresoline 25 mg Tablet] 25 mg PO Q12 10/03/17 Hydrocodone Bit/Acetaminophen [Hydrocodon-Acetaminophn 10-325] 1 tab PO Q6HP PRN 10/03/17 Insulin Glargine,Hum.rec.anlog [Lantus Solostar] unit SQ 10/03/17 Isosorbide Mononitrate [Isosorbide Mononitrate ER] 30 mg PO Q8 10/03/17 Magnesium Oxide [Mag-Ox 400 mg Tablet] 400 mg PO BID 10/03/17 Metolazone [Zaroxolyn 2.5 Mg Tablet] mg PO 10/03/17 Metoprolol Succinate [Toprol Xl 50 mg Tab.sr] 50 mg PO DAILY 10/03/17 Montelukast Sodium [Singulair 10 mg Tablet] 10 mg PO QHS 10/03/17 Multivitamin [Tab-A-Maris (Multiple Vitamin) Tablet] 1 tab PO DAILY 10/03/17 Omeprazole 20 mg PO DAILY 10/03/17 Polyethylene Glycol 3350 [Miralax Powder 17 gm/Packet] 1 packet PO QPMP PRN Pregabalin [Lyrica] 150 mg PO Q12 10/03/17 Ranolazine [Ranexa 500 mg Tab.sr] 100 mg PO Q12 10/03/17 Sennosides/Docusate 8.6-50 mg [Senna Plus Tablet] 1 tab PO BID 10/03/17 Tamsulosin HCl [Flomax 0.4 mg Cap.sr] 0.4 mg PO DAILY 10/03/17 Terazosin HCl 1 mg PO DAILY 10/03/17 Tiotropium [place] [Spiriva Handihaler 5 Cap/Kit (18 Mcg/Cap)] 1 cap IH DAILY Warfarin Sodium [Coumadin 2 mg Tablet] 2 mg PO QHS 10/03/17 Zolpidem Tartrate [Ambien 5 mg Tablet] 5 mg PO HSP PRN 10/03/17 Allergies/Adverse Reactions: Penicillins Allergy (Unknown, Verified 05/17/17 10:40) vancomycin [Vancomycin] Adverse Reaction (Verified 08/24/16 13:13) Review of Systems Constitutional: PRESENT: anorexia, fatigue, weakness Eyes: ABSENT: visual disturbances Ears: ABSENT: hearing changes Nose, Mouth, and Throat: ABSENT: as per HPI, headache(s), mouth pain, sore throat, vertigo, other Breasts: ABSENT: as per HPI, other Cardiovascular: PRESENT: dyspnea on exertion Respiratory: PRESENT: cough, dyspnea Gastrointestinal: ABSENT: abdominal pain, constipation, diarrhea, hematemesis, hematochezia, nausea, vomiting Genitourinary: ABSENT: dysuria, hematuria Musculoskeletal: PRESENT: deformity Integumentary: PRESENT: lesions, wounds Neurological: PRESENT: frequent falls, tremor(s) Psychiatric: ABSENT: anxiety, depression, homidical ideation, suicidal ideation Endocrine: ABSENT: cold intolerance, heat intolerance, polydipsia, polyuria Hematologic/Lymphatic: ABSENT: easy bleeding, easy bruising Allergic/Immunologic: ABSENT: as per HPI, seasonal rhinorrhea, other Physical Exam Vital Signs: Temp Pulse Resp BP Pulse Ox 95 10/03/17 12:20 Additional comments: The patient appears to be an elderly male in poor health. He is alert and oriented and able to give a competent medical history. His facial appearance is unremarkable, but, he does have injected sclera on the right eye. His oropharynx demonstrates very dry mucous membranes. I do not appreciate any JVD. Trachea is midline. He does not have any palpable cervical lymphadenopathy. He does have rhonchi throughout all lung raygoza both anteriorly and posteriorly. His cardiac exam appears to be regular. I do not appreciate any murmurs, gallops or rubs, but, his exam is very distant. The abdomen is protuberant but soft. He does not have any guarding or rebound noted. I do not appreciate any hernias or masses. He states that his abdominal girth is increased from baseline. The patient has a prosthetic device of the left leg. He has a left below the knee amputation. The right leg is erythematous and he has 2 lesions on the right leg which are approximately 20 cm x 20 cm and 10 cm x 5 cm. Please note that his daughter-in- law has multiple pictures of these areas and I was able to visualize these from a week ago until today. They do not appear to be infected but in general the leg is red. Results Impressions: Chest X-Ray 10/03/17 12:07 IMPRESSION: NO ACUTE CARDIOPULMONARY PROCESS. NO SIGNIFICANT CHANGE FROM PRIOR STUDY. Assessment & Plan - Diagnosis (1) Acute kidney injury superimposed on CKD Is this a current diagnosis for this admission?: Yes Plan: The patient has had a significant increase in his creatinine. He did receive Lasix in the emergency department. He appears to be dry on physical exam and I will instigate fluid therapy. (2) CHF exacerbation Qualifiers: Congestive heart failure type: unspecified congestive heart failure type Qualified Code(s): I50.9 - Heart failure, unspecified Is this a current diagnosis for this admission?: No Plan: Patient has underlying diastolic dysfunction. He does not appear to be in decompensated heart failure present. (3) COPD exacerbation Is this a current diagnosis for this admission?: Yes Plan: At this point in time I would like to hold on systemic corticosteroids. I will treat the patient with aggressive inhaled therapy. If he is not improved overnight I will reevaluate for CHF exacerbation versus COPD exacerbation. (4) Cellulitis of right lower extremity Is this a current diagnosis for this admission?: Yes Plan: Certainly, the erythema could be secondary to stasis changes. I will empirically begin antibiotics. I will order blood cultures. (5) Hypertension Qualifiers: Hypertension type: essential hypertension Qualified Code(s): I10 - Essential (primary) hypertension Is this a current diagnosis for this admission?: Yes Plan: For now, I am going to hold the patient's Bumex but continue metoprolol, isosorbide mononitrate and hydralazine. (6) Acute on chronic diastolic heart failure Is this a current diagnosis for this admission?: Yes Plan: See recommendations above. (7) Acute on chronic respiratory failure with hypoxemia Is this a current diagnosis for this admission?: Yes Plan: Continue supplemental oxygen. (8) Chronic kidney disease, stage 3 Is this a current diagnosis for this admission?: Yes Plan: I have explained to the patient that he has had a significant increase in his BUN and creatinine and that I am extremely worried that his renal function is poor. (9) DM type 2 (diabetes mellitus, type 2) Qualifiers: Diabetes mellitus complication status: with circulatory complication Diabetes mellitus complication detail: with peripheral angiopathy without gangrene Diabetes mellitus terminal press operator insulin use: with terminal press operator use Qualified Code(s): E11.51 - Type 2 diabetes mellitus with diabetic peripheral angiopathy without gangrene; Z79.4 - snf (current) use of insulin Is this a current diagnosis for this admission?: Yes Plan: Due to worsened renal failure I will hold the patient's Lantus for now and use sliding scale insulin. (10) Debility Is this a current diagnosis for this admission?: Yes (11) History of pulmonary embolus (PE) Is this a current diagnosis for this admission?: Yes Plan: Patient is on Coumadin. (12) PVD (peripheral vascular disease) Is this a current diagnosis for this admission?: Yes Plan: It is very difficult to tell if there is a superinfection on the right leg. The lesions are open at this time and do not appear to be superinfected. I suspect that this is all secondary to the patient's severe underlying peripheral vascular disease. We will continue with the silver impregnated wound dressings. (13) Splenic laceration Qualifiers: Encounter type: subsequent encounter Qualified Code(s): S36.039D - Unspecified laceration of spleen, subsequent encounter Is this a current diagnosis for this admission?: No Plan: This is a diagnosis from July 2017. (14) Thrombocytopenia Is this a current diagnosis for this admission?: Yes Plan: Patient is anticoagulated and has low platelets. This appears to be chronic. We need to be very vigilant for any bleeding. - Time Time Spent: 50 to 70 Minutes - Inpatient Certification Medical Necessity: Need For IV Fluids, Need For Continuous Telemetry Monitoring , Need for Nebulizer Therapy and Monitoring of Response, Need for Neurological Checks, Need for Pain Control, Need for IV Antibiotics
[2017-10-03] MEDS ORDERED: ALBUTEROL SULFATE 0.083% NEB 2.5 MG/3 ML AMPUL NEB PRN (16:48)
[2017-10-03] MEDS ORDERED: ONDANSETRON HCL INJ/PF 4 MG/2 ML SDV IV PRN (16:48)
[2017-10-03] MEDS ORDERED: POLYETHYLENE GLYCOL 3350 POWDER 17 GM/1 PACKET PO PRN (16:56)
[2017-10-03] MEDS ORDERED: POTASSIUM CHLORIDE 10 MEQ TABLET.SA PO ONE (17:02)
[2017-10-03] MEDS ORDERED: DEXTROSE 50%-WATER 25 GM/50 ML DISP.SYRIN IV PRN ×2 (17:03)
[2017-10-03] MEDS ORDERED: DEXTROSE 40% GEL 15 GM TUBE PO PRN ×2 (17:03)
[2017-10-03] MEDS ORDERED: GLUCAGON,HUMAN RECOMB 1 MG INJ IM PRN (17:03)
--- NOTE | 2017-10-03 17:07 | Progress Note ---
Provider Note Provider Note: I have discontinued the patient's Multaq. There are reports of severe, acute renal failure particularly in hypovolemic patient's. I will consult cardiology for further recommendations.
[2017-10-03] MEDS: OXYCODONE-ACETAMINOPHEN 5-325 MG TABLET PO PRN ×2 (18:36→22:34)
[2017-10-03] MEDS: MAGNESIUM OXIDE 400 MG TABLET PO SCH (18:36)
[2017-10-03] MEDS: SENNOSIDES/DOCUSATE 8.6-50 MG 1 EACH TABLET PO SCH (18:36)
--- NOTE | 2017-10-03 18:36 | PDOC CONSULTATION ---
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 Has multiple and frequent hospitalizations. He was last hospitalized here in July 2017 for a splenic laceration that occurred after a fall. Most recently, he was admitted to [facility]. Apparently , his AICD was firing at home on a frequent basis. He was recently started on Multaq 400 mg twice a day. In addition, he started taking potassium of his own accord. He was not given a prescription for potassium. He stated that the potassium was helping with his leg cramps. When he presented to the emergency department today his BUN was 74 and his creatinine 2.85. Previously his creatinine has been around 1.5-1.6. In the emergency department he was diagnosed with acute decompensated congestive heart failure and given Lasix. His BNP is only 630. He also has chronic lower extremity wounds. His daughter- in-law is caring for his wounds with a silver impregnated bandage. He also sees Dr. Morel at the wound care clinic. Patient claims that he had recent frequent defibrillator shocks and was subsequently seen by Dr. Sandhu at [facility]. He did some adjustment to the defibrillator and placed patient on Multaq. Is scheduled for a defibrillator battery change out in about 3 weeks. Past Medical History Cardiac Medical History: Reports: Atrial Fibrillation, Congestive Heart Failure , Coronary Artery Disease, Myocardial Infarction - x6, Hyperlipidema, Hypertension, Peripheral Vascular Disease, Pulmonary Embolism Pulmonary Medical History: Reports: Asthma, Bronchitis, Chronic Obstructive Pulmonary Disease (COPD), Sleep Apnea - without c-pap Denies: Pneumonia, Respiratory Failure, Tuberculosis Neurological Medical History: Denies: Seizures Endocrine Medical History: Reports: Diabetes Mellitus Type 2 Denies: Hyperthyroidism, Hypothyroidism Renal/ Medical History: Denies: End Stage Renal Disease Malignancy Medical History: Denies: Leukemia, Lung Cancer GI Medical History: Reports: Gastroesophageal Reflux Disease Denies: Hepatitis, Hiatal Hernia Musculoskeltal Medical History: Reports: Arthritis Denies: Fibromyalgia Psychiatric Medical History: Denies: Dementia, Depression Hematology: Denies: Anemia, Hemophilia, Sickle Cell Disease Infectious Medical History: Denies: HIV Past Surgical History Past Surgical History: Reports: Cardiac Catheterization, Coronary Artery Bypass Graft - quadruple, Coronary Stent, Internal Defibrillator, Orthopedic Surgery - Left BKA, Pacemaker Denies: Appendectomy, Cholecystectomy, Gastric Bypass Surgery, Herniorrhaphy , Tonsillectomy Social History Information Source: Patient Smoking Status: Former Smoker Frequency of Alcohol Use: None Hx Recreational Drug Use: No Drugs: None Hx Prescription Drug Abuse: No - Advance Directive Resuscitation Status: Full Code Surrogate healthcare decision maker:: Full code patient's is the surrogate decision makers Family History Family History: Reviewed & Not Pertinent, CAD, COPD Parental Family History Reviewed: Yes Children Family History Reviewed: Yes Sibling(s) Family History Reviewed.: Yes Medication/Allergy Home Medications: Albuterol Sulfate [Ventolin HFA MDI 18 GM] 1 puff IH Q6HP PRN 10/03/17 Allopurinol [Zyloprim 300 mg Tablet] 150 mg PO DAILY 10/03/17 Aspirin [Aspirin EC] 81 mg PO DAILY 10/03/17 Atorvastatin Calcium [Lipitor 40 mg Tablet] 40 mg PO QHS 10/03/17 Budesonide/Formoterol Fumarate [Symbicort Hfa 160-4.5 Mcg Inhaler 6 gm] 2 puff IH Q12 10/03/17 Bumetanide [Bumex 2 mg Tablet] 2 mg PO Q12 10/03/17 Cholecalciferol (Vitamin D3) [Vitamin D3 400 Unit Tablet] 400 unit PO DAILY Dronedarone Hydrochloride [Multaq 400 Mg Tablet] 400 mg PO Q12 10/03/17 Finasteride [Proscar 5 mg Tablet] 5 mg PO QHS 10/03/17 Hydralazine HCl [Apresoline 25 mg Tablet] 25 mg PO Q12 10/03/17 Hydrocodone Bit/Acetaminophen [Hydrocodon-Acetaminophn 10-325] 1 tab PO Q6HP PRN 10/03/17 Insulin Glargine,Hum.rec.anlog [Lantus Solostar] 8 unit SQ QHS 10/03/17 Isosorbide Mononitrate [Isosorbide Mononitrate ER] 90 mg PO DAILY 10/03/17 Magnesium Oxide [Mag-Ox 400 mg Tablet] 400 mg PO BID 10/03/17 Metolazone [Zaroxolyn 2.5 Mg Tablet] 2.5 mg PO MOWEFR@1000 10/03/17 Metoprolol Succinate [Toprol Xl 50 mg Tab.sr] 50 mg PO DAILY 10/03/17 Montelukast Sodium [Singulair 10 mg Tablet] 10 mg PO QHS 10/03/17 Multivitamin [Tab-A-Maris (Multiple Vitamin) Tablet] 1 tab PO DAILY 10/03/17 Omeprazole 20 mg PO DAILY 10/03/17 Polyethylene Glycol 3350 [Miralax Powder 17 gm/Packet] 1 packet PO QPMP PRN Pregabalin [Lyrica] 150 mg PO Q12 10/03/17 Ranolazine [Ranexa 500 mg Tab.sr] 1,000 mg PO Q12 10/03/17 Sennosides/Docusate 8.6-50 mg [Senna Plus Tablet] 1 tab PO BID 10/03/17 Tamsulosin HCl [Flomax 0.4 mg Cap.sr] 0.8 mg PO QHS 10/03/17 Terazosin HCl 1 mg PO DAILY 10/03/17 Tiotropium Dickens [Spiriva Handihaler 5 Cap/Kit (18 Mcg/Cap)] 1 cap IH DAILY Warfarin Sodium [Coumadin 2 mg Tablet] 2 mg PO QHS 10/03/17 Zolpidem Tartrate [Ambien 5 mg Tablet] 5 mg PO HSP PRN 10/03/17 Allergies/Adverse Reactions: Penicillins Allergy (Unknown, Verified 05/17/17 10:40) vancomycin [Vancomycin] Adverse Reaction (Verified 08/24/16 13:13) Review of Systems Review of Systems: Please see history of present illness and past medical history as wall. Constitutional: No fever or chills reported. Had noted marked fatigue and tiredness. Recent weight gain of about 4 pounds. Has noted some abdominal distention. Head : No recent chronic headaches, recent head injury. Eyes: No recent eye pain, diplopia, redness, discharge, acute visual changes. Ears: No recent chronic ear pain, acute hearing loss, ear discharge. Oral cavity: No recent ulcerations, bleeding, oral cavity discomfort. Neck: No recent acute neck pain reported. Hematologic: No recent easy bruising or bleeding or hematologic malignancy reported. Lymphatic: No recent lymphatic malignancy, chronic lymphadenopathy reported yet Cardiovascular system review: See history of present illness. Respiratory system review: No recent chronic cough, hemoptysis, blood clots in the lungs reported. Mild Shortness of breath on exertion Gastrointestinal system review: Negative for any recent acute or chronic abdominal pain, hematemesis, melena, recent change in bowel habits. Genitourinary system review: No recent acute or chronic hematuria, flank pain, UTI etc. reported. Skin system review: Open wound and cellulitis of the right lower extremity which is covered up. Neurologic: No prior history of strokes, mini strokes, seizure disorder. Psychologic: No history of major psychosis or major depression reported. Musculoskeletal: Minor aches and pains reported. No acute joint swelling reported. Endocrine: No recent polyuria, polydipsia, recent heat or cold intolerance. Physical Exam Vital Signs: Temp Pulse Resp BP Pulse Ox 97.7 F 60 19 121/60 96 10/03/17 18:10 10/03/17 18:10 10/03/17 18:10 10/03/17 18:10 10/03/17 18:10 Exam: GENERAL: well-nourished and in no acute distress. Alert and oriented x3 HEAD: Atraumatic, normocephalic. EYES: Pupils equal round and reactive to light, extraocular movements intact, sclera anicteric, conjunctiva are normal. ENT: TMs normal, nares patent, oropharynx clear without exudates. Moist mucous membranes. No oral ulcerations or bleeding gums noted NECK: supple without lymphadenopathy. Trachea is central. No cervical or axillary lymphadenopathy noted. Carotids are 2+, JVD WNL LUNGS: Respiration seems nonlabored, no significant accessory muscle action noted. Breath sounds clear to auscultation bilaterally and equal noted. No wheezes rales or rhonchi noted. No significant dullness noted on percussion. CHEST: Palpation of the chest wall shows no significant chest wall tenderness. No other significant abnormalities noted. HEART: [place] HEADER DOCK, No PSH, 1/6 MAGGIE aortic area, 1/6 recinos systolic murmur mitral area, no rubs, no gallops. ABDOMEN: Soft, no significant tenderness appreciated, normoactive bowel sounds. No guarding, no rebound. No rigidity noted . No masses appreciated. EXTREMITIES: left below the knee amputation. The right leg is erythematous and he has 2 lesions on the right leg which are approximately 20 cm x 20 cm and 10 cm x 5 cm. The wound is covered up. This determination was made by the hospitalist after looking at second pictures taken by patient's family. NEUROLOGICAL: Focused neurological exam showed no significant neurologic deficit. Normal speech, no focal weakness appreciated. PSYCH: Normal mood, normal affect. Judgment and insight within normal limits. SKIN: No significant ecchymosis, rash, ulcerations or signs of pruritus noted. MUSCULOSKELETAL EXAM: No significant joint swelling noted. Results Laboratory Results: 10/03/17 10/03/17 17:06 17:06 Creatine Kinase 26 L CK-MB (CK-2) 0.56 EKG Comments: Shows atrial paced rhythm, appearance of inferior and lateral [place]. Impressions: Chest X-Ray 10/03/17 12:07 IMPRESSION: NO ACUTE CARDIOPULMONARY PROCESS. NO SIGNIFICANT CHANGE FROM PRIOR STUDY. Assessment & Plan - Diagnosis (1) Cellulitis of right lower extremity Is this a current diagnosis for this admission?: Yes (2) Peripheral vascular disease Is this a current diagnosis for this admission?: Yes (3) Acute kidney injury superimposed on CKD Is this a current diagnosis for this admission?: Yes (4) CHF exacerbation Qualifiers: Congestive heart failure type: unspecified congestive heart failure type Qualified Code(s): I50.9 - Heart failure, unspecified Is this a current diagnosis for this admission?: Yes (5) Hypertension Qualifiers: Hypertension type: essential hypertension Qualified Code(s): I10 - Essential (primary) hypertension Is this a current diagnosis for this admission?: Yes (6) COPD (chronic obstructive pulmonary disease) Qualifiers: COPD type: COPD with acute exacerbation Qualified Code(s): J44.1 - Chronic obstructive pulmonary disease with (acute) exacerbation (7) Coronary artery disease Qualifiers: Coronary Disease-Associated Artery/Lesion type: unspecified vessel or lesion type [place] vs. transplanted heart: [place] heart Associated angina: angina presence unspecified Qualified Code(s): I25.10 - Atherosclerotic heart disease of [place] coronary artery without angina pectoris Is this a current diagnosis for this admission?: Yes (8) DM type 2 (diabetes mellitus, type 2) Qualifiers: Diabetes mellitus complication status: with circulatory complication Diabetes mellitus complication detail: with peripheral angiopathy without gangrene Diabetes mellitus long term care administrator insulin use: with long term care administrator use Qualified Code(s): E11.51 - Type 2 diabetes mellitus with diabetic peripheral angiopathy without gangrene; 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 He describes history of low EF. At this point acute problem seems to be acute on chronic renal failure and cellulitis for which he seems to be adequately treated. Will avoid aggressive fluid resuscitation. Due to multiple comorbid diagnosis and patient being full code, it may be worthwhile to consider tertiary care transfer. 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 At this point recommend antibiotic therapy. Patient due to have a defibrillator battery change out. - Time Time Spent: 30 to 50 Minutes - CODE STATUS was discussed, patient remains full code. Surrogate decision-maker patient's . Multiple medical problems were addressed. More than 50% of the time spent coordinating care, discussing management plans with involved caregivers. Management plans discussed with involved personnels. Medical decision making was of moderate to high complexity , patient's has multiple comorbidities. Medications reviewed and adjusted accordingly: Yes
[2017-10-03] MEDS: 1/2 NORMAL SALINE 1,000 ML IV PRN (19:31)
[2017-10-03] MEDS: IPRATROPIUM/ALBUTEROL 0.5-2.5 MG/3 ML AMPUL NEB SCH (21:12)
[2017-10-03] MEDS: PREGABALIN 75 MG CAPSULE PO SCH (22:35)
[2017-10-03] MEDS: TAMSULOSIN HCL 0.4 MG CAP.SR.24H PO SCH (22:35)
[2017-10-03] MEDS: FINASTERIDE 5 MG TABLET PO SCH (22:36)
[2017-10-03] MEDS: ATORVASTATIN CALCIUM 40 MG TABLET PO SCH (22:36)
[2017-10-03] MEDS: FAMOTIDINE 20 MG TABLET PO SCH (22:36)
[2017-10-03] MEDS: HYDRALAZINE HCL 25 MG TABLET PO SCH (22:36)
[2017-10-03] MEDS: WARFARIN SODIUM 2 MG TABLET PO SCH (22:36)
[2017-10-03] MEDS: MONTELUKAST SODIUM 10 MG TABLET PO SCH (22:37)
[2017-10-03] MEDS ORDERED: BUDESONIDE/FORMOTEROL 160-4.5 MCG 60 PUFF/6 GM MDI IH ONE (23:24)
[2017-10-03] MEDS ORDERED: RANOLAZINE 500 MG TAB.SR.12H PO ONE (23:28)
[2017-10-04] MEDS: ZOLPIDEM TARTRATE 5 MG TABLET PO SCH ×2 (00:46→21:43)
[2017-10-04] MEDS: BUDESONIDE/FORMOTEROL 160-4.5 MCG 60 PUFF/6 GM MDI IH SCH ×3 (00:47→21:45)
[2017-10-04] MEDS: RANOLAZINE 500 MG TAB.SR.12H PO SCH ×3 (00:48→22:32)
[2017-10-04] MEDS: 1/2 NORMAL SALINE 1,000 ML IV PRN ×2 (05:39→20:46)
[2017-10-04 05:58] LABS: MEAN CORPUSCULAR HEMOGLOBIN 30.8 pg (27.0-33.4); MEAN CORPUSCULAR HGB CONC 33.4 g/dL (32.0-36.0); MEAN CORPUSCULAR VOLUME 92 fl (80-97); RED CELL DISTRIBUTION WIDTH 17.6 % (11.5-14.0); WHITE BLOOD COUNT 6.6 10^3/uL (4.0-10.5)
[2017-10-04 05:59] LABS: INTERNATIONAL RATION (INR) 1.99; PROTHROMBIN TIME 23.7 SEC (11.4-15.4)
[2017-10-04 06:00] LABS: PARTIAL THROMBOPLASTIN TIME 46.6 SEC (23.5-35.8)
[2017-10-04 06:14] LABS: MAGNESIUM 2.3 mg/dL (1.6-2.3); PHOSPHORUS 3.4 mg/dL (2.5-4.5)
[2017-10-04 06:15] LABS: ALANINE AMINOTRANSFERASE 31 U/L (21-72); ALKALINE PHOSPHATASE 100 U/L (38-126); ANION GAP 8 (5-19); ASPARTATE AMINO TRANSFERASE 19 U/L (17-59); BILIRUBIN,DIRECT 0.3 mg/dL (0.0-0.4); BILIRUBIN,TOTAL 0.5 mg/dL (0.2-1.3); BLOOD UREA NITROGEN 77 mg/dL (7-20); CALCIUM 8.3 mg/dL (8.4-10.2); CARBON DIOXIDE 33 mmol/L (22-30); CHLORIDE 99 mmol/L (98-107); GLUCOSE 150 mg/dL (75-110); POTASSIUM 3.3 mmol/L (3.6-5.0); SODIUM 140.1 mmol/L (137-145); TOTAL PROTEIN 5.6 g/dL (6.3-8.2)
[2017-10-04 06:27] LABS: PLATELET COUNT 77 10^3/uL (150-450)
[2017-10-04] MEDS ORDERED: POTASSIUM CHLORIDE 10 MEQ TABLET.SA PO ONE (07:27)
[2017-10-04] MEDS: INSULIN LISPRO 100 UNIT/ML 3 ML VIAL SUBCUT PRN ×3 (08:24→23:11)
[2017-10-04] MEDS: IPRATROPIUM/ALBUTEROL 0.5-2.5 MG/3 ML AMPUL NEB SCH ×4 (08:47→20:54)
[2017-10-04] MEDS ORDERED: CEFTRIAXONE 1 GM/D5W RTU 1 GM/50 ML RTUPB IV SCH (10:00)
[2017-10-04] MEDS: METOPROLOL SUCCINATE 50 MG TAB.SR.24H PO SCH (10:38)
[2017-10-04] MEDS: ASPIRIN 81 MG TABLET, ENT COATED PO SCH (10:38)
[2017-10-04] MEDS: PREGABALIN 75 MG CAPSULE PO SCH (10:40)
[2017-10-04] MEDS: FAMOTIDINE 20 MG TABLET PO SCH ×2 (10:40→21:42)
[2017-10-04] MEDS: MULTIVITAMIN TABLET PO SCH (10:40)
[2017-10-04] MEDS: SENNOSIDES/DOCUSATE 8.6-50 MG 1 EACH TABLET PO SCH ×2 (10:41→18:47)
[2017-10-04] MEDS: CHOLECALCIFEROL (D3) 400 UNIT TABLET PO SCH (10:41)
[2017-10-04] MEDS: MAGNESIUM OXIDE 400 MG TABLET PO SCH ×2 (10:41→18:47)
[2017-10-04] MEDS: OXYCODONE-ACETAMINOPHEN 5-325 MG TABLET PO PRN (10:55)
[2017-10-04] MEDS: DOXAZOSIN MESYLATE 1 MG TABLET PO SCH (10:56)
[2017-10-04] MEDS: HYDRALAZINE HCL 25 MG TABLET PO SCH ×2 (10:56→21:42)
[2017-10-04] MEDS: ISOSORBIDE MONONITRATE 30 MG TAB.ER.24H PO SCH (10:56)
[2017-10-04 12:22] LABS: ARTERIAL BLOOD BASE EXCESS 5.2 mmol/L; ARTERIAL BLOOD H2CO3 1.55 mmol/L (1.05-1.35); ARTERIAL BLOOD HCO3 31.2 mmol/L (20-26); ARTERIAL BLOOD O2 SATURATION 83.9 % (94-98); ARTERIAL BLOOD PCO2 51.6 mmHg (35-45); ARTERIAL BLOOD PO2 48.9 mmHg (80-100); ARTERIAL BLOOD TOTAL CO2 32.8 mmol/L (23-27)
[2017-10-04 12:23] LABS: ARTERIAL BLOOD FIO2 ROOM AIR
[2017-10-04 12:38] LABS: APPEARANCE,URINE CLEAR; BILIRUBIN,URINE NEGATIVE (NEGATIVE); COLOR,URINE YELLOW; GLUCOSE, URINE NEGATIVE (NEGATIVE); KETONES,URINE NEGATIVE (NEGATIVE); LEUKOCYTE ESTERASE,URINE NEGATIVE (NEGATIVE); NITRITE,URINE NEGATIVE (NEGATIVE); PROTEIN,URINE 30 mg/dL (NEGATIVE); URINE SPECIFIC GRAVITY 1.011; UROBILINOGEN,URINE NEGATIVE mg/dL (<2.0)
--- NOTE | 2017-10-04 14:24 | RADIOLOGY REPORT (SQ) ---
EXAM DESCRIPTION: CT HEAD WITHOUT COMPLETED DATE/TIME: 10/04/2017 2:12 pm REASON FOR STUDY: Rule out IC bleed R25.0 ABNORMAL HEAD MOVEMENTS A41.89 OTHER SPECIFIED SEPSIS A0 8.8 OTHER SPECIFIED INTESTINAL INFECTIONS COMPARISON: 10/04/2010 TECHNIQUE: Axial images acquired through the brain without intravenous contrast. Images reviewed wi th bone, brain and subdural windows. Images stored on PACS. All CT scanners at this facility use dose modulation, iterative reconstruction, and/or weight based d osing when appropriate to reduce radiation dose to as low as reasonably achievable (ALARA). [facility]: Dose Right [facility]: CareDose [facility]: Dose Right [facility]: Teradose 4D [facility]: [employer] RADIATION DOSE: CT Rad equipment meets quality standard of care and radiation dose reduction techniq ues were employed. CTDIvol: 64.6 mGy. DLP: 1163 mGy-cm. mGy. LIMITATIONS: None. FINDINGS: VENTRICLES: Prominent. CEREBRUM: No masses. No hemorrhage. No midline shift. Areas of low density in the white matter mos t likely due to chronic micro-vascular ischemic change. No evidence for acute infarction. CEREBELLUM: No masses. No hemorrhage. No alteration of density. No evidence for acute infarction. EXTRAAXIAL SPACES: Mild age-related involutional change. No fluid collections. No masses. ORBITS AND GLOBE: No intra- or extraconal masses. Normal contour of globe without masses. CALVARIUM: No fracture. PARANASAL SINUSES: No fluid or mucosal thickening. SOFT TISSUES: No mass or hematoma. OTHER: No other significant finding. IMPRESSION: NO ACUTE INTRACRANIAL PROCESS. NO SIGNIFICANT CHANGE FROM PRIOR STUDY. EVIDENCE OF ACUTE STROKE: NO. TECHNICAL DOCUMENTATION: JOB ID: [id number] Quality ID # [id number]: Final reports with documentation of one or more dose reduction techniques (e.g., Au tomated exposure control, adjustment of the mA and/or kV according to patient size, use of iterative reconstruction technique) 2010 [employer]- All Rights Reserved
--- NOTE | 2017-10-04 15:25 | PDOC PROGRESS REPORT ---
Subjective Progress Note for:: 10/04/17 Subjective:: Patient complains of having tremors and difficulty ambulating because of jerking muscle movement. He however seems alert and oriented. He claims some shortness of breath. Patient subsequently underwent a arterial blood gas which was noted to be satisfactory with some compensated respiratory acidosis. Telemetry strips were reviewed. It showed normal AV paced function of the defibrillator. Twelve-lead EKG was also reviewed. Reason For Visit: ACUTE EXACERBATION OF CONGESTION HEART FAILURE Physical Exam Vital Signs: Temp Pulse Resp BP Pulse Ox 98 F 60 24 H 116/62 96 10/04/17 12:00 10/04/17 12:00 10/04/17 12:00 10/04/17 12:00 10/04/17 12:00 Intake & Output 10/03/17 10/04/17 10/05/17 06:59 06:59 06:59 Intake Total 1455 480 Balance 1455 480 Weight 99.3 kg Exam: GENERAL: well-nourished and mild respiratory distress. Alert and oriented x3 HEAD: Atraumatic, normocephalic. EYES: Pupils equal round and reactive to light, extraocular movements intact, sclera anicteric, conjunctiva are normal. ENT: TMs normal, nares patent, oropharynx clear without exudates. Moist mucous membranes. No oral ulcerations or bleeding gums noted NECK: supple without lymphadenopathy. Trachea is central. No cervical or axillary lymphadenopathy noted. Carotids are 2+, JVD WNL LUNGS: Respiration seems nonlabored, no significant accessory muscle action noted. Bilateral coarse crackles noted which is somewhat increased from yesterday. Mild wheezes rales or rhonchi noted. No significant dullness noted on percussion. CHEST: Palpation of the chest wall shows no significant chest wall tenderness. No other significant abnormalities noted. 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 ABDOMEN: Soft, no significant tenderness appreciated, normoactive bowel sounds. No guarding, no rebound. No rigidity noted . No masses appreciated. EXTREMITIES: left below the knee amputation. The right leg has wound that is is covered up. NEUROLOGICAL: Focused neurological exam showed no significant neurologic deficit. Normal speech, no focal weakness appreciated. PSYCH: Normal mood, normal affect. Judgment and insight within normal limits. SKIN: No significant ecchymosis, rash, ulcerations or signs of pruritus noted. MUSCULOSKELETAL EXAM: No significant joint swelling noted. Results Laboratory Results: 10/04/17 05:41 10/04/17 05:41 10/04/17 10/04/17 10/04/17 05:41 05:41 05:41 WBC 6.6 RBC 3.90 L Hgb 12.0 L Hct 36.0 L MCV 92 MCH 30.8 MCHC 33.4 RDW 17.6 H Plt Count 77 L Carbonic Acid HCO3/H2CO3 Ratio ABG pH ABG pCO2 ABG pO2 ABG HCO3 ABG O2 Saturation ABG Base Excess FiO2 Sodium Cancelled 140.1 Potassium Cancelled 3.3 L Chloride Cancelled 99 Carbon Dioxide Cancelled 33 H Anion Gap Cancelled 8 BUN Cancelled 77 H Creatinine Cancelled 2.76 H Est GFR ( Amer) Cancelled 27 L Est GFR (Non-Af Amer) Cancelled 22 L Glucose Cancelled 150 H Calcium Cancelled 8.3 L Phosphorus 3.4 Magnesium 2.3 Total Bilirubin 0.5 AST 19 ALT 31 Alkaline Phosphatase 100 Total Protein 5.6 L Albumin 3.0 L Urine Color Urine Appearance Urine pH Ur Specific [place] Urine Protein Urine Glucose (UA) Urine Ketones Urine Blood Urine Nitrite Ur Leukocyte Esterase Urine WBC (Auto) Urine RBC (Auto) 10/04/17 10/04/17 11:59 12:18 WBC RBC Hgb Hct MCV MCH MCHC RDW Plt Count Carbonic Acid 1.55 H HCO3/H2CO3 Ratio 20:1 ABG pH 7.40 ABG pCO2 51.6 H ABG pO2 48.9 L ABG HCO3 31.2 H ABG O2 Saturation 83.9 L ABG Base Excess 5.2 FiO2 ROOM AIR Sodium Potassium Chloride Carbon Dioxide Anion Gap BUN Creatinine Est GFR ( Amer) Est GFR (Non-Af Amer) Glucose Calcium Phosphorus Magnesium Total Bilirubin AST ALT Alkaline Phosphatase Total Protein Albumin Urine Color YELLOW Urine Appearance CLEAR Urine pH 5.0 Ur Specific [place] 1.011 Urine Protein 30 H Urine Glucose (UA) NEGATIVE Urine Ketones NEGATIVE Urine Blood NEGATIVE Urine Nitrite NEGATIVE Ur Leukocyte Esterase NEGATIVE Urine WBC (Auto) 0 Urine RBC (Auto) 0 10/03/17 10/03/17 10/03/17 17:06 17:06 23:20 Creatine Kinase 26 L 29 L CK-MB (CK-2) 0.56 10/03/17 10/04/17 10/04/17 23:20 05:41 05:41 Creatine Kinase 25 L CK-MB (CK-2) 0.81 0.48 Impressions: Chest X-Ray 10/03/17 12:07 IMPRESSION: NO ACUTE CARDIOPULMONARY PROCESS. NO SIGNIFICANT CHANGE FROM PRIOR STUDY. Head CT 10/04/17 00:00 IMPRESSION: NO ACUTE INTRACRANIAL PROCESS. NO SIGNIFICANT CHANGE FROM PRIOR STUDY. EVIDENCE OF ACUTE STROKE: NO. Assessment & Plan - Diagnosis (1) Cellulitis of right lower extremity Is this a current diagnosis for this admission?: Yes (2) Peripheral vascular disease Is this a current diagnosis for this admission?: Yes (3) Acute kidney injury superimposed on CKD Is this a current diagnosis for this admission?: Yes (4) CHF exacerbation Qualifiers: Congestive heart failure type: unspecified congestive heart failure type Qualified Code(s): I50.9 - Heart failure, unspecified Is this a current diagnosis for this admission?: Yes (5) Hypertension Qualifiers: Hypertension type: essential hypertension Qualified Code(s): I10 - Essential (primary) hypertension Is this a current diagnosis for this admission?: Yes (6) COPD (chronic obstructive pulmonary disease) Qualifiers: COPD type: COPD with acute exacerbation Qualified Code(s): J44.1 - Chronic obstructive pulmonary disease with (acute) exacerbation (7) Coronary artery disease Qualifiers: Coronary Disease-Associated Artery/Lesion type: unspecified vessel or lesion type [place] vs. transplanted heart: [place] heart Associated angina: angina presence unspecified Qualified Code(s): I25.10 - Atherosclerotic heart disease of [place] coronary artery without angina pectoris Is this a current diagnosis for this admission?: Yes (8) DM type 2 (diabetes mellitus, type 2) Qualifiers: Diabetes mellitus complication status: with circulatory complication Diabetes mellitus complication detail: with peripheral angiopathy without gangrene Diabetes mellitus senior living insulin use: with superintendent terminal use Qualified Code(s): E11.51 - Type 2 diabetes mellitus with diabetic peripheral angiopathy without gangrene; 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 PVD: Currently stable. Acute on chronic kidney disease: Worsening noted. This is a poor prognostic factor for this patient. CHF: Difficult to assess volume status in this patient. Have reduced IV fluids to 50 cc an hour. Frequent chest x-ray may be needed. Hypertension: Currently stable. COPD: Continue current therapy. CAD: Stable without any anginal chest discomfort. Diabetes: Recommend good control. Asterixis: Patient noted to have asterixis on clinical exam. This is a new finding. Have discussed with hospitalist was ordered an ABG. Possibly due to combination of CO2 retention and renal failure. A CT of the head was negative. Patient has numerous multiple comorbid diagnosis. Overall prognosis is grave. Discussed that there is not much cardiology support at his level at this institution. Currently however no interventions being planned. Patient encouraged to keep appointments for defibrillator change out procedure. - Time Time with patient: Greater than 35 minutes - CODE STATUS was discussed, patient remains full code. Surrogate decision-maker unchanged. Multiple medical problems were addressed. More than 50% of the time spent coordinating care, discussing management plans with involved caregivers. Management plans discussed with involved personnels. Medical decision making was of moderate to high complexity, patient's has multiple comorbidities. Medications reviewed and adjusted accordingly: Yes
--- NOTE | 2017-10-04 15:28 | RADIOLOGY REPORT (SQ) ---
EXAM DESCRIPTION: U/S RETROPERITON LTD COMPLETED DATE/TIME: 10/04/2017 3:14 pm REASON FOR STUDY: Acute renal failure R25.0 ABNORMAL HEAD MOVEMENTS A41.89 OTHER SPECIFIED SEPSIS A08.8 OTHER SPECIFIED INTESTINAL INFECTIONS COMPARISON: 10/26/2013 TECHNIQUE: Dynamic and static grayscale images acquired of the kidneys and bladder and recorded on P ACS. Additional selected color Doppler and spectral images recorded. LIMITATIONS: None. FINDINGS: RIGHT KIDNEY: Normal size. Normal echogenicity. No solid or suspicious masses. No h ydronephrosis. No calcifications. LEFT KIDNEY: Normal size. Normal echogenicity. No solid or suspicious masses. No hydronephrosi s. No calcifications. BLADDER: No masses. OTHER FINDINGS: No other significant finding. IMPRESSION: NORMAL RENAL AND BLADDER ULTRASOUND. TECHNICAL DOCUMENTATION: JOB ID: [id number] [employer]- All Rights Reserved
[2017-10-04] MEDS ORDERED: NORMAL SALINE 1000 ML 500 ML IV ONE (16:37)
--- NOTE | 2017-10-04 17:05 | RADIOLOGY REPORT (SQ) ---
EXAM DESCRIPTION: CHEST SINGLE VIEW COMPLETED DATE/TIME: 10/04/2017 4:53 pm REASON FOR STUDY: Respiratory distress COMPARISON: 10/03/2017. CT chest from July. FINDINGS: Single-view chest AP portable upright timed approximately 1641 hours. Status post CABG. Multi lead pacer intact. Cardiomegaly. Mild interstitial prominence without suggestion of overt failure or focal infiltrate. Relatively chronic appearance. Comparison chest CT further demonstrates scarring in the left lung. IMPRESSION: Fairly stable appearance of the chest as above. Cardiac enlargement with mild interstit ial pattern not suspected to be related to overt failure. TECHNICAL DOCUMENTATION: JOB ID: [id number]
[2017-10-04 17:17] LABS: ABSOLUTE EOSINOPHILS # (AUTO) 0.1 10^3/uL (0.0-0.6); ABSOLUTE LYMPHOCYTES (AUTO) 0.9 10^3/uL (0.5-4.7); ABSOLUTE MONOCYTES (AUTO) 1.1 10^3/uL (0.1-1.4); ABSOLUTE NEUT (AUTO) 5.3 10^3/uL (1.7-8.2); BASOPHILS % (AUTO) 0.3 % (0-2); EOSINOPHILS % (AUTO) 1.3 % (0-6); HEMATOCRIT 37.8 % (37.9-51.0); HEMOGLOBIN 12.2 g/dL (13.5-17.0); LYMPHOCYTES % (AUTO) 12.1 % (13-45); MEAN CORPUSCULAR HEMOGLOBIN 30.1 pg (27.0-33.4); MEAN CORPUSCULAR HGB CONC 32.4 g/dL (32.0-36.0); MEAN CORPUSCULAR VOLUME 93 fl (80-97); MONOCYTES % (AUTO) 14.3 % (3-13); RED BLOOD COUNT 4.07 10^6/uL (4.35-5.55); RED CELL DISTRIBUTION WIDTH 17.4 % (11.5-14.0); TOTAL CELLS COUNTED % (AUTO) 100 %; WHITE BLOOD COUNT 7.3 10^3/uL (4.0-10.5)
[2017-10-04 17:18] LABS: ALANINE AMINOTRANSFERASE 28 U/L (21-72); ALBUMIN 3.1 g/dL (3.5-5.0); ALKALINE PHOSPHATASE 101 U/L (38-126); ANION GAP 10 (5-19); ASPARTATE AMINO TRANSFERASE 16 U/L (17-59); BILIRUBIN,DIRECT 0.4 mg/dL (0.0-0.4); BILIRUBIN,TOTAL 0.6 mg/dL (0.2-1.3); BLOOD UREA NITROGEN 69 mg/dL (7-20); CALCIUM 7.8 mg/dL (8.4-10.2); CARBON DIOXIDE 30 mmol/L (22-30); CHLORIDE 101 mmol/L (98-107); GLUCOSE 155 mg/dL (75-110); SODIUM 141.3 mmol/L (137-145); TOTAL PROTEIN 5.6 g/dL (6.3-8.2)
[2017-10-04 17:24] LABS: POTASSIUM 4.5 mmol/L (3.6-5.0)
[2017-10-04 17:37] LABS: ARTERIAL BLOOD BASE EXCESS 5.5 mmol/L; ARTERIAL BLOOD FIO2 60%; ARTERIAL BLOOD H2CO3 1.83 mmol/L (1.05-1.35); ARTERIAL BLOOD HCO3 32.8 mmol/L (20-26); ARTERIAL BLOOD O2 SATURATION 93.8 % (94-98); ARTERIAL BLOOD PCO2 60.9 mmHg (35-45); ARTERIAL BLOOD PH 7.35 (7.35-7.45); ARTERIAL BLOOD TOTAL CO2 34.7 mmol/L (23-27)
[2017-10-04 17:41] LABS: PLATELET COUNT 80 10^3/uL (150-450)
[2017-10-04] MEDS ORDERED: DAPTOMYCIN 400 MG in NORMAL SALINE 50 ML IV SCH (18:00)
[2017-10-04] MEDS: METHYLPREDNISOLONE INJ 125 MG/2 ML SDV IV SCH (18:41)
--- NOTE | 2017-10-04 19:09 | Progress Note ---
Provider Note Provider Note: Was called to see the patient at approximately 4:30 PM. He was becoming increasingly confused. At that time he was showing evidence of respiratory distress. We placed the patient emergently on BiPAP. We also transfer the patient to the intensive care unit. I had extensive conversations with multiple family members. Initially, I felt that intubation was necessary. 1 of the family members told me that the patient would not want this and they wanted me to wait until his arrive. I did this because the patient was improving on BiPAP. Initially, she was against the idea of intubation but after another discussion she feels that if it is necessary to save his life that we should do it. Also, there was some concern about using corticosteroids in this patient because a blood to fluid retention in the past. I explained that we are between a rock and a hard place and that patient is currently in respiratory distress and I feel that there is a component of COPD and therefore transfer the patient to the unit. I was initially going to discuss potential of transferring the patient before this event occurred. I am concerned about the patient's renal function. If I cannot obtain consultation with nephrology I will entertain transfer tomorrow. At the present time the patient is not stable for transfer and I do not recommend transferring this evening unless there are interventions that are necessary that cannot be performed here. I explained to the family again that he is gravely ill and I am very concerned about his prognosis.
[2017-10-04] MEDS ORDERED: HYDRALAZINE HCL INJ/PF 20 MG/1 ML SDV IV PRN (19:31)
[2017-10-04] MEDS ORDERED: LACTULOSE SYRUP 20 GM/30 ML UDCUP PO ONE (21:30)
[2017-10-04] MEDS: TAMSULOSIN HCL 0.4 MG CAP.SR.24H PO SCH (21:41)
[2017-10-04] MEDS: WARFARIN SODIUM 2 MG TABLET PO SCH (21:41)
[2017-10-04] MEDS: MONTELUKAST SODIUM 10 MG TABLET PO SCH (21:42)
[2017-10-04] MEDS: FINASTERIDE 5 MG TABLET PO SCH (21:42)
[2017-10-04] MEDS: ATORVASTATIN CALCIUM 40 MG TABLET PO SCH (21:43)
[2017-10-04] MEDS ORDERED: RANOLAZINE 500 MG TAB.SR.12H PO ONE (22:18)
[2017-10-04 22:33] LABS: ARTERIAL BLOOD BASE EXCESS 3.6 mmol/L; ARTERIAL BLOOD H2CO3 1.64 mmol/L (1.05-1.35); ARTERIAL BLOOD HCO3 30.3 mmol/L (20-26); ARTERIAL BLOOD O2 SATURATION 95.2 % (94-98); ARTERIAL BLOOD PCO2 54.4 mmHg (35-45); ARTERIAL BLOOD PH 7.36 (7.35-7.45); ARTERIAL BLOOD TOTAL CO2 31.9 mmol/L (23-27)
[2017-10-04 22:34] LABS: ARTERIAL BLOOD FIO2 60%
[2017-10-05] MEDS: METHYLPREDNISOLONE INJ 125 MG/2 ML SDV IV SCH ×2 (02:27→10:22)
[2017-10-05 04:20] LABS: HEMATOCRIT 38.9 % (37.9-51.0); HEMOGLOBIN 12.6 g/dL (13.5-17.0); MEAN CORPUSCULAR HEMOGLOBIN 30.2 pg (27.0-33.4); MEAN CORPUSCULAR HGB CONC 32.3 g/dL (32.0-36.0); MEAN CORPUSCULAR VOLUME 93 fl (80-97); RED BLOOD COUNT 4.17 10^6/uL (4.35-5.55); RED CELL DISTRIBUTION WIDTH 17.6 % (11.5-14.0); WHITE BLOOD COUNT 4.8 10^3/uL (4.0-10.5)
[2017-10-05 04:22] LABS: INTERNATIONAL RATION (INR) 2.07; PARTIAL THROMBOPLASTIN TIME 44.7 SEC (23.5-35.8); PROTHROMBIN TIME 24.4 SEC (11.4-15.4)
[2017-10-05 04:37] LABS: PLATELET COUNT 65 10^3/uL (150-450)
[2017-10-05 05:09] LABS: ANION GAP 8 (5-19); BLOOD UREA NITROGEN 65 mg/dL (7-20); CALCIUM 8.3 mg/dL (8.4-10.2); CARBON DIOXIDE 31 mmol/L (22-30); CHLORIDE 104 mmol/L (98-107); GLUCOSE 231 mg/dL (75-110); POTASSIUM 4.3 mmol/L (3.6-5.0); SODIUM 142.9 mmol/L (137-145)
[2017-10-05 05:10] LABS: MAGNESIUM 2.4 mg/dL (1.6-2.3)
[2017-10-05] MEDS: LACTULOSE SYRUP 20 GM/30 ML UDCUP PO SCH ×3 (05:42→17:47)
[2017-10-05] MEDS: IPRATROPIUM/ALBUTEROL 0.5-2.5 MG/3 ML AMPUL NEB SCH ×4 (08:16→19:23)
[2017-10-05 08:27] LABS: ARTERIAL BLOOD BASE EXCESS 5.1 mmol/L; ARTERIAL BLOOD HCO3 32.4 mmol/L (20-26); ARTERIAL BLOOD O2 SATURATION 99.6 % (94-98); ARTERIAL BLOOD PCO2 59.9 mmHg (35-45); ARTERIAL BLOOD PH 7.35 (7.35-7.45); ARTERIAL BLOOD PO2 284.6 mmHg (80-100); ARTERIAL BLOOD TOTAL CO2 34.2 mmol/L (23-27)
[2017-10-05 08:28] LABS: ARTERIAL BLOOD FIO2 60%
--- NOTE | 2017-10-05 09:19 | RADIOLOGY REPORT (SQ) ---
EXAM DESCRIPTION: CHEST SINGLE VIEW COMPLETED DATE/TIME: 10/05/2017 8:53 am REASON FOR STUDY: Resp failure COMPARISON: 10/04/2017. EXAM PARAMETERS: NUMBER OF VIEWS: One view. TECHNIQUE: Single frontal radiographic view of the chest acquired. RADIATION DOSE: NA LIMITATIONS: None. FINDINGS: LUNGS AND PLEURA: Mild diffuse interstitial prominence. No focal infiltrates, masses or p neumothorax. No pleural effusion. MEDIASTINUM AND HILAR STRUCTURES: No masses. Contour normal. HEART AND VASCULAR STRUCTURES: Heart upper limits of normal in size. Normal vasculature. BONES: No acute findings. HARDWARE: Defibrillator. Sternotomy wires and coronary bypass markers. OTHER: No other significant finding. IMPRESSION: STABLE APPEARANCE OF THE CHEST. MILD INTERSTITIAL PROMINENCE LIKELY DUE TO MILD CHRONIC SCARRING. NO SIGNIFICANT CHANGE. TECHNICAL DOCUMENTATION: JOB ID: [id number] [employer]- All Rights Reserved
--- NOTE | 2017-10-05 09:31 | EKG REPORT ---
SEVERITY:- ABNORMAL ECG - A-V DUAL-PACED RHYTHM WITH SOME INHIBITION NONSPECIFIC INTRAVENTRICULAR CONDUCTION DELAY : Confirmed by: Magi Garcia 05-Oct-2017 09:30:25
--- NOTE | 2017-10-05 09:31 | EKG REPORT ---
SEVERITY:- ABNORMAL ECG - ATRIAL-VENTRICULAR DUAL-PACED RHYTHM : Confirmed by: Magi Garcia 05-Oct-2017 09:30:31
[2017-10-05] MEDS: MAGNESIUM OXIDE 400 MG TABLET PO SCH ×2 (10:18→17:38)
[2017-10-05] MEDS: SENNOSIDES/DOCUSATE 8.6-50 MG 1 EACH TABLET PO SCH ×2 (10:18→17:38)
[2017-10-05] MEDS: MULTIVITAMIN TABLET PO SCH (10:18)
[2017-10-05] MEDS: ASPIRIN 81 MG TABLET, ENT COATED PO SCH (10:18)
[2017-10-05] MEDS: FAMOTIDINE 20 MG TABLET PO SCH ×2 (10:18→22:35)
[2017-10-05] MEDS: BUDESONIDE/FORMOTEROL 160-4.5 MCG 60 PUFF/6 GM MDI IH SCH ×2 (10:19→22:36)
[2017-10-05] MEDS: CHOLECALCIFEROL (D3) 400 UNIT TABLET PO SCH (10:20)
[2017-10-05] MEDS: METOPROLOL SUCCINATE 50 MG TAB.SR.24H PO SCH (10:21)
[2017-10-05] MEDS: HYDRALAZINE HCL 25 MG TABLET PO SCH ×2 (10:22→22:33)
[2017-10-05] MEDS: RANOLAZINE 500 MG TAB.SR.12H PO SCH ×2 (12:14→22:33)
[2017-10-05] MEDS: ISOSORBIDE MONONITRATE 30 MG TAB.ER.24H PO SCH (12:15)
[2017-10-05] MEDS: DOXAZOSIN MESYLATE 1 MG TABLET PO SCH (12:16)
--- NOTE | 2017-10-05 12:45 | PDOC PROGRESS REPORT ---
Subjective Progress Note for:: 10/05/17 Subjective:: The patient is a 77-year-old male with a complicated cardiac history. He was admitted to the hospital on October 03, 2017 secondary to increasing drainage from the lower extremity wounds of the right leg. The patient has severe peripheral arterial disease. He has chronic ulcerations of the lower extremity that have been present for years. He is status post left below the knee amputation also for peripheral arterial disease. He has underlying cardiac disease and is status post CABG. He also has an AICD with a pacemaker in place. Most recently, the patient was admitted to [facility]. 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 At the time of admission he was unable to tell me his cardiologists name. He was admitted because his AICD was firing. His pacemaker and AICD were adjusted and he was placed on Multaq. I stopped Multaq upon admission as this can be associated with acute renal failure. He is due to have his battery changed out next week. When the patient was admitted he was also complaining of some increased shortness of breath above baseline. At that time his clinical exam was most indicative of decreased intravascular volume status and he presented in severe and acute renal failure. Therefore, he was placed on fluids. Yesterday, the patient developed myoclonic jerking. An ABG was repeated and this did not demonstrate any significant increase in PCO2. A head CT was performed to rule out an intracranial bleed which it did. Later, the patient developed acute respiratory distress. He was placed on BiPAP and transferred to the intensive care unit. I had multiple conversations with multiple friends and family members yesterday and the patient remains a full code. Today, I am trying to ascertain what his cardiac status is. His last echocardiogram performed here demonstrates an ejection fraction of 55% with diastolic dysfunction. I am trying to track down records from [place] and I have ordered a stat echocardiogram. Cardiology is following. Nephrology has graciously accepted this consultation. Reason For Visit: ACUTE RESPIRATORY FAILURE, ACUTE ON CHRONIC KIDNEY Physical Exam Vital Signs: Temp Pulse Resp BP Pulse Ox 97.0 F 60 23 H 168/69 H 97 10/05/17 12:00 10/05/17 12:00 10/05/17 12:00 10/05/17 12:00 10/05/17 12:00 Intake & Output 10/04/17 10/05/17 10/06/17 06:59 06:59 06:59 Intake Total 1455 1596 Output Total 950 1250 Balance 1455 646 -1250 Weight 99.3 kg 101.2 kg Additional comments: The patient wakes up fairly easily but is noted to be somewhat lethargic. He occasionally will have myoclonic jerking but it is certainly improved when compared to yesterday. He is confused. His lungs are clear while on BiPAP. His cardiac exam is distant but appears to be regular. I do not appreciate any murmurs, gallops or rubs. The abdomen is soft and nondistended. Bowel sounds are present in the lower quadrants. There is no guarding or rebound present. The left lower extremity stump site looks good. The right lower extremity is wrapped. The last time I examined his wounds was yesterday and both lesions do not appear to be superinfected. The erythema around the lesions is stable to improved. Results Laboratory Results: 10/05/17 03:56 10/05/17 03:54 10/04/17 10/04/17 10/04/17 11:59 12:18 16:34 WBC RBC Hgb Hct MCV MCH MCHC RDW Plt Count Seg Neutrophils % Lymphocytes % Monocytes % Eosinophils % Basophils % Absolute Neutrophils Absolute Lymphocytes Absolute Monocytes Absolute Eosinophils Absolute Basophils Carbonic Acid 1.55 H HCO3/H2CO3 Ratio 20:1 ABG pH 7.40 ABG pCO2 51.6 H ABG pO2 48.9 L ABG HCO3 31.2 H ABG O2 Saturation 83.9 L ABG Base Excess 5.2 FiO2 ROOM AIR Sodium 141.3 Potassium 4.5 D Chloride 101 Carbon Dioxide 30 Anion Gap 10 BUN 69 H Creatinine 2.70 H Est GFR ( Amer) 28 L Est GFR (Non-Af Amer) 23 L Glucose 155 H Lactic Acid Calcium 7.8 L Phosphorus Magnesium Total Bilirubin 0.6 AST 16 L ALT 28 Alkaline Phosphatase 101 Ammonia Total Protein 5.6 L Albumin 3.1 L Urine Color YELLOW Urine Appearance CLEAR Urine pH 5.0 Ur Specific [place] 1.011 Urine Protein 30 H Urine Glucose (UA) NEGATIVE Urine Ketones NEGATIVE Urine Blood NEGATIVE Urine Nitrite NEGATIVE Ur Leukocyte Esterase NEGATIVE Urine WBC (Auto) 0 Urine RBC (Auto) 0 10/04/17 10/04/17 10/04/17 16:34 16:34 16:34 WBC 7.3 RBC 4.07 L Hgb 12.2 L Hct 37.8 L MCV 93 MCH 30.1 MCHC 32.4 RDW 17.4 H Plt Count 80 L Seg Neutrophils % 72.0 Lymphocytes % 12.1 L Monocytes % 14.3 H Eosinophils % 1.3 Basophils % 0.3 Absolute Neutrophils 5.3 Absolute Lymphocytes 0.9 Absolute Monocytes 1.1 Absolute Eosinophils 0.1 Absolute Basophils 0.0 Carbonic Acid HCO3/H2CO3 Ratio ABG pH ABG pCO2 ABG pO2 ABG HCO3 ABG O2 Saturation ABG Base Excess FiO2 Sodium Potassium Chloride Carbon Dioxide Anion Gap BUN Creatinine Est GFR ( Amer) Est GFR (Non-Af Amer) Glucose Lactic Acid 1.5 Calcium Phosphorus Magnesium Total Bilirubin AST ALT Alkaline Phosphatase Ammonia 58.4 H Total Protein Albumin Urine Color Urine Appearance Urine pH Ur Specific [place] Urine Protein Urine Glucose (UA) Urine Ketones Urine Blood Urine Nitrite Ur Leukocyte Esterase Urine WBC (Auto) Urine RBC (Auto) 10/04/17 10/04/17 10/04/17 16:34 17:20 22:15 WBC RBC Hgb Hct MCV MCH MCHC RDW Plt Count Seg Neutrophils % Lymphocytes % Monocytes % Eosinophils % Basophils % Absolute Neutrophils Absolute Lymphocytes Absolute Monocytes Absolute Eosinophils Absolute Basophils Carbonic Acid 1.83 H 1.64 H HCO3/H2CO3 Ratio 17:1 18:1 ABG pH 7.35 7.36 ABG pCO2 60.9 H 54.4 H ABG pO2 74.0 L 80.0 ABG HCO3 32.8 H 30.3 H ABG O2 Saturation 93.8 L 95.2 ABG Base Excess 5.5 3.6 FiO2 60% 60% Sodium Potassium Chloride Carbon Dioxide Anion Gap BUN Creatinine Est GFR ( Amer) Est GFR (Non-Af Amer) Glucose Lactic Acid Calcium Phosphorus Magnesium 2.3 Total Bilirubin AST ALT Alkaline Phosphatase Ammonia Total Protein Albumin Urine Color Urine Appearance Urine pH Ur Specific [place] Urine Protein Urine Glucose (UA) Urine Ketones Urine Blood Urine Nitrite Ur Leukocyte Esterase Urine WBC (Auto) Urine RBC (Auto) 10/05/17 10/05/17 10/05/17 03:54 03:56 08:15 WBC 4.8 RBC 4.17 L Hgb 12.6 L Hct 38.9 MCV 93 MCH 30.2 MCHC 32.3 RDW 17.6 H Plt Count 65 L Seg Neutrophils % Lymphocytes % Monocytes % Eosinophils % Basophils % Absolute Neutrophils Absolute Lymphocytes Absolute Monocytes Absolute Eosinophils Absolute Basophils Carbonic Acid 1.80 H HCO3/H2CO3 Ratio 18:1 ABG pH 7.35 ABG pCO2 59.9 H ABG pO2 284.6 H ABG HCO3 32.4 H ABG O2 Saturation 99.6 H ABG Base Excess 5.1 FiO2 60% Sodium 142.9 Potassium 4.3 Chloride 104 Carbon Dioxide 31 H Anion Gap 8 BUN 65 H Creatinine 2.30 H Est GFR ( Amer) 33 L Est GFR (Non-Af Amer) 28 L Glucose 231 H Lactic Acid Calcium 8.3 L Phosphorus 3.0 Magnesium 2.4 H Total Bilirubin AST ALT Alkaline Phosphatase Ammonia Total Protein Albumin Urine Color Urine Appearance Urine pH Ur Specific [place] Urine Protein Urine Glucose (UA) Urine Ketones Urine Blood Urine Nitrite Ur Leukocyte Esterase Urine WBC (Auto) Urine RBC (Auto) 10/03/17 10/03/17 10/03/17 17:06 17:06 23:20 Creatine Kinase 26 L 29 L CK-MB (CK-2) 0.56 10/03/17 10/04/17 10/04/17 23:20 05:41 05:41 Creatine Kinase 25 L CK-MB (CK-2) 0.81 0.48 Impressions: Head CT 10/04/17 00:00 IMPRESSION: NO ACUTE INTRACRANIAL PROCESS. NO SIGNIFICANT CHANGE FROM PRIOR STUDY. EVIDENCE OF ACUTE STROKE: NO. Renal Ultrasound 10/04/17 00:00 IMPRESSION: NORMAL RENAL AND BLADDER ULTRASOUND. Chest X-Ray 10/05/17 00:00 IMPRESSION: STABLE APPEARANCE OF THE CHEST. MILD INTERSTITIAL PROMINENCE LIKELY DUE TO MILD CHRONIC SCARRING. NO SIGNIFICANT CHANGE. Assessment & Plan - Diagnosis (1) Acute kidney injury superimposed on CKD Is this a current diagnosis for this admission?: Yes Plan: Renal ultrasound was unremarkable. Currently, patient is continuing to receive fluids. Nephrology consult is underway. (2) CHF exacerbation Qualifiers: Congestive heart failure type: unspecified congestive heart failure type Qualified Code(s): I50.9 - Heart failure, unspecified Is this a current diagnosis for this admission?: Yes Plan: Certainly, this may be playing a role. I will try to determine the patient's ejection fraction today and obtain old records. (3) COPD exacerbation Is this a current diagnosis for this admission?: Yes Plan: The patient was placed on corticosteroids yesterday for presumed COPD with exacerbation. In the past his family told me that steroids precipitated exacerbation of congestive heart failure secondary to fluid and salt retention. Therefore, I plan on a short course with rapid tapering if possible. Pulmonary is following as well. (4) Cellulitis of right lower extremity Is this a current diagnosis for this admission?: Yes Plan: The patient was placed on renally dosed Cubicin yesterday. (5) Hypertension Qualifiers: Hypertension type: essential hypertension Qualified Code(s): I10 - Essential (primary) hypertension Is this a current diagnosis for this admission?: Yes Plan: For now, I am going to hold the patient's Bumex but continue metoprolol, isosorbide mononitrate and hydralazine. (6) Acute on chronic diastolic heart failure Is this a current diagnosis for this admission?: Yes Plan: See dictation above. (7) Acute on chronic respiratory failure with hypoxemia Is this a current diagnosis for this admission?: Yes Plan: Patient is currently BiPAP dependent. Initially, the family was concerned about intubation. I did speak to multiple family members and clarified that the patient's CODE STATUS is full that the patient when he was competent to told me that he would want mechanical ventilation and intubation it would save his life. This was at the time of admission. (8) Chronic kidney disease, stage 3 Is this a current diagnosis for this admission?: Yes Plan: See above discussion. Nephrology consult is underway. 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 (10) Debility Is this a current diagnosis for this admission?: Yes (11) History of pulmonary embolus (PE) Is this a current diagnosis for this admission?: Yes Plan: Patient is on Coumadin. Check INR daily. (12) PVD (peripheral vascular disease) Is this a current diagnosis for this admission?: Yes Plan: It is very difficult to tell if there is a superinfection on the right leg. The lesions are open at this time and do not appear to be superinfected. I suspect that this is all secondary to the patient's severe underlying peripheral vascular disease. We will continue with the silver impregnated wound dressings. Cubicin was started yesterday as there was a question as to whether or not the patient was having a reaction to ceftriaxone. The patient does not appear to be septic at this time. (13) Splenic laceration Qualifiers: Encounter type: subsequent encounter Qualified Code(s): S36.039D - Unspecified laceration of spleen, subsequent encounter Is this a current diagnosis for this admission?: No Plan: This is a diagnosis from July 2017. (14) Thrombocytopenia Is this a current diagnosis for this admission?: Yes Plan: Patient is anticoagulated and has low platelets. This appears to be chronic. We need to be very vigilant for any bleeding. Due to his myoclonic jerks I did send him for a stat head CT yesterday which was unremarkable for acute insult or bleeding. Thrombocytopenia dates back to June of this year and is low intermittently on prior labs as well. - Time Time Spent with patient: 35 or more minutes - Inpatient Certification Medical Necessity: Need Close Monitoring Due to Risk of Patient Decompensation, Need For IV Fluids, Need For Continuous Telemetry Monitoring, Need for Neurological Checks, Need for IV Antibiotics, Risk of Complication if Not Cared For in Hospital
[2017-10-05 13:34] LABS: ARTERIAL BLOOD BASE EXCESS 2.5 mmol/L; ARTERIAL BLOOD H2CO3 1.63 mmol/L (1.05-1.35); ARTERIAL BLOOD HCO3 29.2 mmol/L (20-26); ARTERIAL BLOOD O2 SATURATION 99.4 % (94-98); ARTERIAL BLOOD PH 7.35 (7.35-7.45); ARTERIAL BLOOD PO2 225.2 mmHg (80-100); ARTERIAL BLOOD TOTAL CO2 30.9 mmol/L (23-27)
--- NOTE | 2017-10-05 13:44 | PDOC CONSULTATION ---
Consultation Consult Date: 10/05/17 Attending physician:: NEHA BRADY Consult reason:: acute/chronic respiratory failure History of Present Illness Admission Date/PCP: 10/03/17 15:53 History of Present Illness: TRUONG PINK is a 77 year old male that has multiple comorbid medical conditions. 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 He has an AC ID as well as pacemaker which is scheduled to be augmented with a new battery. He is status post left AKA this area the wound is dry and intact Past Medical History Cardiac Medical History: Reports: Atrial Fibrillation, Congestive Heart Failure , Coronary Artery Disease, Myocardial Infarction - x6, Hyperlipidema, Hypertension, Peripheral Vascular Disease, Pulmonary Embolism Pulmonary Medical History: Reports: Asthma, Bronchitis, Chronic Obstructive Pulmonary Disease (COPD), Sleep Apnea - without c-pap Denies: Pneumonia, Respiratory Failure, Tuberculosis Neurological Medical History: Denies: Seizures Endocrine Medical History: Reports: Diabetes Mellitus Type 2 Denies: Hyperthyroidism, Hypothyroidism Renal/ Medical History: Denies: End Stage Renal Disease Malignancy Medical History: Denies: Leukemia, Lung Cancer GI Medical History: Reports: Gastroesophageal Reflux Disease Denies: Hepatitis, Hiatal Hernia Musculoskeltal Medical History: Reports: Arthritis Denies: Fibromyalgia Psychiatric Medical History: Denies: Dementia, Depression Hematology: Denies: Anemia, Hemophilia, Sickle Cell Disease Infectious Medical History: Denies: HIV Past Surgical History Past Surgical History: Reports: Cardiac Catheterization, Coronary Artery Bypass Graft - quadruple, Coronary Stent, Internal Defibrillator, Orthopedic Surgery - Left BKA, Pacemaker Denies: Appendectomy, Cholecystectomy, Gastric Bypass Surgery, Herniorrhaphy , Tonsillectomy Social History Information Source: [facility] Records Lives with: Family Smoking Status: Former Smoker Number of Years Smokin Frequency of Alcohol Use: None Hx Recreational Drug Use: No Drugs: None Hx Prescription Drug Abuse: No Do you have pets?: No Have you had any respiratory illnesses as a child?: No Have you been exposed to any sick contacts recently?: No Have you had any recent respiratory illnesses?: No Have you travelled outside of [place] in the past 12 months?: No - Advance Directive Resuscitation Status: Full Code Family History Family History: CAD, COPD Parental Family History Reviewed: No Children Family History Reviewed: No Sibling(s) Family History Reviewed.: No Medication/Allergy Home Medications: Albuterol Sulfate [Ventolin HFA MDI 18 GM] 1 puff IH Q6HP PRN 10/03/17 Allopurinol [Zyloprim 300 mg Tablet] 150 mg PO DAILY 10/03/17 Aspirin [Aspirin EC] 81 mg PO DAILY 10/03/17 Atorvastatin Calcium [Lipitor 40 mg Tablet] 40 mg PO QHS 10/03/17 Budesonide/Formoterol Fumarate [Symbicort Hfa 160-4.5 Mcg Inhaler 6 gm] 2 puff IH Q12 10/03/17 Bumetanide [Bumex 2 mg Tablet] 2 mg PO Q12 10/03/17 Cholecalciferol (Vitamin D3) [Vitamin D3 400 Unit Tablet] 400 unit PO DAILY Dronedarone Hydrochloride [Multaq 400 Mg Tablet] 400 mg PO Q12 10/03/17 Finasteride [Proscar 5 mg Tablet] 5 mg PO QHS 10/03/17 Hydralazine HCl [Apresoline 25 mg Tablet] 25 mg PO Q12 10/03/17 Hydrocodone Bit/Acetaminophen [Hydrocodon-Acetaminophn 10-325] 1 tab PO Q6HP PRN 10/03/17 Insulin Glargine,Hum.rec.anlog [Lantus Solostar] 8 unit SQ QHS 10/03/17 Isosorbide Mononitrate [Isosorbide Mononitrate ER] 90 mg PO DAILY 10/03/17 Magnesium Oxide [Mag-Ox 400 mg Tablet] 400 mg PO BID 10/03/17 Metolazone [Zaroxolyn 2.5 Mg Tablet] 2.5 mg PO MOWEFR@1000 10/03/17 Metoprolol Succinate [Toprol Xl 50 mg Tab.sr] 50 mg PO DAILY 10/03/17 Montelukast Sodium [Singulair 10 mg Tablet] 10 mg PO QHS 10/03/17 Multivitamin [Tab-A-Maris (Multiple Vitamin) Tablet] 1 tab PO DAILY 10/03/17 Omeprazole 20 mg PO DAILY 10/03/17 Polyethylene Glycol 3350 [Miralax Powder 17 gm/Packet] 1 packet PO QPMP PRN Pregabalin [Lyrica] 150 mg PO Q12 10/03/17 Ranolazine [Ranexa 500 mg Tab.sr] 1,000 mg PO Q12 10/03/17 Sennosides/Docusate 8.6-50 mg [Senna Plus Tablet] 1 tab PO BID 10/03/17 Tamsulosin HCl [Flomax 0.4 mg Cap.sr] 0.8 mg PO QHS 10/03/17 Terazosin HCl 1 mg PO DAILY 10/03/17 Tiotropium [place] [Spiriva Handihaler 5 Cap/Kit (18 Mcg/Cap)] 1 cap IH DAILY Warfarin Sodium [Coumadin 2 mg Tablet] 2 mg PO QHS 10/03/17 Zolpidem Tartrate [Ambien 5 mg Tablet] 5 mg PO HSP PRN 10/03/17 Allergies/Adverse Reactions: Penicillins Allergy (Unknown, Verified 05/17/17 10:40) vancomycin [Vancomycin] Adverse Reaction (Verified 08/24/16 13:13) Review of Systems ROS unobtainable: Due to mental status Physical Exam Vital Signs: Temp Pulse Resp BP Pulse Ox 97.4 F 60 20 151/66 H 98 10/05/17 07:49 10/05/17 08:19 10/05/17 08:19 10/05/17 07:49 10/05/17 08:19 Intake & Output 10/04/17 10/05/17 10/06/17 06:59 06:59 06:59 Intake Total 1455 1596 Output Total 950 Balance 1455 646 Weight 99.3 kg 101.2 kg General appearance: PRESENT: disheveled, mild distress, morbidly obese, well- developed, well-nourished. ABSENT: no acute distress, cooperative, hard of hearing, obese, severe distress Head exam: PRESENT: atraumatic, normocephalic Eye exam: PRESENT: conjunctiva pale. ABSENT: conjunctival injection, conjunctiva pink, nystagmus, periorbital swelling, scleral icterus Mouth exam: PRESENT: dry mucosa, neck supple, tongue midline. ABSENT: laceration, moist Neck exam: ABSENT: carotid bruit, JVD, lymphadenopathy, thyromegaly, tracheal deviation, tracheostomy Respiratory exam: PRESENT: decreased breath sounds, prolonged expiratory phas, rales, rhonchi, symmetrical, unlabored, wheezes. ABSENT: accessory muscle use, chest wall tenderness, clear to auscultation dipti, crackles, retraction, stridor , tachypnea Cardiovascular exam: PRESENT: irregular rhythm Pulses: PRESENT: normal radial pulses GI/Abdominal exam: PRESENT: normal bowel sounds, soft. ABSENT: distended, guarding, mass, organolmegaly, rebound, tenderness Extremities exam: PRESENT: other - L AKA. ABSENT: clubbing, joint swelling Musculoskeletal exam: ABSENT: ambulatory, dislocation, normal inspection Neurological exam: ABSENT: alert, awake Skin exam: PRESENT: dry, warm Results Laboratory Results: 10/05/17 03:56 10/05/17 03:54 10/04/17 10/04/17 10/04/17 11:59 12:18 16:34 WBC RBC Hgb Hct MCV MCH MCHC RDW Plt Count Seg Neutrophils % Lymphocytes % Monocytes % Eosinophils % Basophils % Absolute Neutrophils Absolute Lymphocytes Absolute Monocytes Absolute Eosinophils Absolute Basophils Carbonic Acid 1.55 H HCO3/H2CO3 Ratio 20:1 ABG pH 7.40 ABG pCO2 51.6 H ABG pO2 48.9 L ABG HCO3 31.2 H ABG O2 Saturation 83.9 L ABG Base Excess 5.2 FiO2 ROOM AIR Sodium 141.3 Potassium 4.5 D Chloride 101 Carbon Dioxide 30 Anion Gap 10 BUN 69 H Creatinine 2.70 H Est GFR ( Amer) 28 L Est GFR (Non-Af Amer) 23 L Glucose 155 H Lactic Acid Calcium 7.8 L Phosphorus Magnesium Total Bilirubin 0.6 AST 16 L ALT 28 Alkaline Phosphatase 101 Ammonia Total Protein 5.6 L Albumin 3.1 L Urine Color YELLOW Urine Appearance CLEAR Urine pH 5.0 Ur Specific [place] 1.011 Urine Protein 30 H Urine Glucose (UA) NEGATIVE Urine Ketones NEGATIVE Urine Blood NEGATIVE Urine Nitrite NEGATIVE Ur Leukocyte Esterase NEGATIVE Urine WBC (Auto) 0 Urine RBC (Auto) 0 10/04/17 10/04/17 10/04/17 16:34 16:34 16:34 WBC 7.3 RBC 4.07 L Hgb 12.2 L Hct 37.8 L MCV 93 MCH 30.1 MCHC 32.4 RDW 17.4 H Plt Count 80 L Seg Neutrophils % 72.0 Lymphocytes % 12.1 L Monocytes % 14.3 H Eosinophils % 1.3 Basophils % 0.3 Absolute Neutrophils 5.3 Absolute Lymphocytes 0.9 Absolute Monocytes 1.1 Absolute Eosinophils 0.1 Absolute Basophils 0.0 Carbonic Acid HCO3/H2CO3 Ratio ABG pH ABG pCO2 ABG pO2 ABG HCO3 ABG O2 Saturation ABG Base Excess FiO2 Sodium Potassium Chloride Carbon Dioxide Anion Gap BUN Creatinine Est GFR ( Amer) Est GFR (Non-Af Amer) Glucose Lactic Acid 1.5 Calcium Phosphorus Magnesium Total Bilirubin AST ALT Alkaline Phosphatase Ammonia 58.4 H Total Protein Albumin Urine Color Urine Appearance Urine pH Ur Specific [place] Urine Protein Urine Glucose (UA) Urine Ketones Urine Blood Urine Nitrite Ur Leukocyte Esterase Urine WBC (Auto) Urine RBC (Auto) 10/04/17 10/04/17 10/04/17 16:34 17:20 22:15 WBC RBC Hgb Hct MCV MCH MCHC RDW Plt Count Seg Neutrophils % Lymphocytes % Monocytes % Eosinophils % Basophils % Absolute Neutrophils Absolute Lymphocytes Absolute Monocytes Absolute Eosinophils Absolute Basophils Carbonic Acid 1.83 H 1.64 H HCO3/H2CO3 Ratio 17:1 18:1 ABG pH 7.35 7.36 ABG pCO2 60.9 H 54.4 H ABG pO2 74.0 L 80.0 ABG HCO3 32.8 H 30.3 H ABG O2 Saturation 93.8 L 95.2 ABG Base Excess 5.5 3.6 FiO2 60% 60% Sodium Potassium Chloride Carbon Dioxide Anion Gap BUN Creatinine Est GFR ( Amer) Est GFR (Non-Af Amer) Glucose Lactic Acid Calcium Phosphorus Magnesium 2.3 Total Bilirubin AST ALT Alkaline Phosphatase Ammonia Total Protein Albumin Urine Color Urine Appearance Urine pH Ur Specific [place] Urine Protein Urine Glucose (UA) Urine Ketones Urine Blood Urine Nitrite Ur Leukocyte Esterase Urine WBC (Auto) Urine RBC (Auto) 10/05/17 10/05/17 10/05/17 03:54 03:56 08:15 WBC 4.8 RBC 4.17 L Hgb 12.6 L Hct 38.9 MCV 93 MCH 30.2 MCHC 32.3 RDW 17.6 H Plt Count 65 L Seg Neutrophils % Lymphocytes % Monocytes % Eosinophils % Basophils % Absolute Neutrophils Absolute Lymphocytes Absolute Monocytes Absolute Eosinophils Absolute Basophils Carbonic Acid 1.80 H HCO3/H2CO3 Ratio 18:1 ABG pH 7.35 ABG pCO2 59.9 H ABG pO2 284.6 H ABG HCO3 32.4 H ABG O2 Saturation 99.6 H ABG Base Excess 5.1 FiO2 60% Sodium 142.9 Potassium 4.3 Chloride 104 Carbon Dioxide 31 H Anion Gap 8 BUN 65 H Creatinine 2.30 H Est GFR ( Amer) 33 L Est GFR (Non-Af Amer) 28 L Glucose 231 H Lactic Acid Calcium 8.3 L Phosphorus 3.0 Magnesium 2.4 H Total Bilirubin AST ALT Alkaline Phosphatase Ammonia Total Protein Albumin Urine Color Urine Appearance Urine pH Ur Specific [place] Urine Protein Urine Glucose (UA) Urine Ketones Urine Blood Urine Nitrite Ur Leukocyte Esterase Urine WBC (Auto) Urine RBC (Auto) 10/03/17 10/03/17 10/03/17 17:06 17:06 23:20 Creatine Kinase 26 L 29 L CK-MB (CK-2) 0.56 10/03/17 10/04/17 10/04/17 23:20 05:41 05:41 Creatine Kinase 25 L CK-MB (CK-2) 0.81 0.48 Impressions: Head CT 10/04/17 00:00 IMPRESSION: NO ACUTE INTRACRANIAL PROCESS. NO SIGNIFICANT CHANGE FROM PRIOR STUDY. EVIDENCE OF ACUTE STROKE: NO. Renal Ultrasound 10/04/17 00:00 IMPRESSION: NORMAL RENAL AND BLADDER ULTRASOUND. Assessment & Plan - Diagnosis (1) Acute kidney injury superimposed on CKD Is this a current diagnosis for this admission?: Yes Plan: no nephrology avaiable (2) CHF exacerbation Qualifiers: Congestive heart failure type: unspecified congestive heart failure type Qualified Code(s): I50.9 - Heart failure, unspecified Is this a current diagnosis for this admission?: Yes (3) COPD exacerbation Is this a current diagnosis for this admission?: Yes Plan: Generic Name Dose Route Start Last Admin Trade Name Freq PRN Reason Stop Dose Admin Albuterol 2.5 mg 10/03/17 16:48 Ventolin 0.083% Neb 2.5 Mg/3 Ml Ampul NEB 11/02/17 16:47 RTQ2HP PRN Albuterol/Ipratropium 3 ml 10/03/17 20:00 10/05/17 12:19 Duoneb 3 Ml Ampul NEB 11/02/17 19:59 3 ml [id number] BURT Budesonide/Formoterol Fumarate 2 puff 10/03/17 22:00 10/05/17 10:19 Symbicort Hfa 160-4.5 Mcg Inhaler 6 Gm IH 11/02/17 21:59 2 puff Q12 BURT Methylprednisolone Sodium Succinate 60 mg 10/04/17 18:00 10/05/17 10:22 Solu-Medrol Inj/Pf 125 Mg/2 Ml Sdv IV 11/03/17 17:59 60 mg Q8A BURT (4) Anemia Qualifiers: Other causes of anemia: chronic disease, other Is this a current diagnosis for this admission?: Yes - Time Total Critical Time (Minutes): 55
--- NOTE | 2017-10-05 14:06 | XCELERA REPORT ---
[address] [address] Transthoracic Echocardiogram Report Name: TRUONG PINK Age: 77 yrs Gender: Male : 1940 Patient Status: Inpatient Patient Location: ICU^[id number]^A Study Date: 10/05/2017 10:57 AM Height: 70 in Weight: 223 lb BSA: 2.2 m2 Procedure: A complete two-dimensional transthoracic echocardiogram was performed (2D, M-mode, spectral and color flow Doppler). The study was technically difficult with many images being suboptimal in quality. Reason For Study: CHF, Resp Distress Ordering Physician: MAGI ROSE Performed By: Mary Anne Linares Interpretation Summary The study was technically difficult with many images being suboptimal in quality. The Ejection Fraction estimate is 30-35% Left ventricular systolic function is moderate to severely reduced. There is moderate concentric left ventricular hypertrophy. The left ventricle is mildly dilated. Doppler measurements suggest reversible restrictive left ventricular relaxation, which is associated with grade III/IV or moderate diastolic dysfunction There is moderate to severe global hypokinesis of the left ventricle. Regional wall motion abnormalities cannot be excluded due to limited visualization. Probable apical akinesia. The right ventricular systolic function is mildly reduced. The right ventricle is grossly normal size. The left atrium is moderately dilated. The right atrium is borderline dilated. There is a mild amount of mitral regurgitation There is no mitral valve stenosis. There is no aortic valve stenosis No aortic regurgitation is present. There is a trace to mild amount of tricuspid regurgitation There is moderate pulmonary hypertension by echo Right ventricular systolic pressure is estimated to be elevated at 40- 50mmHg. The aortic root is not well visualized. The inferior vena cava appeared normal and decreased < 50% with respiration (RAP 10-15 mmHg) There is no pericardial effusion. MMode/2D Measurements & Calculations RVDd: 2.6 cm LVIDd: 6.0 cm FS: 17.2 % Ao root diam: 2.8 cm IVSd: 1.4 cm LVIDs: 4.9 cm EDV(Teich): 177.1 ml LVPWd: 1.5 cm ESV(Teich): 114.6 ml Ao root area: 6.2 cm2 EF(Teich): 35.3 % Doppler Measurements & Calculations MV E max kiarra: MV dec slope: Ao V2 max: LV V1 max P.9 cm/sec 148.0 cm/sec 4.1 mmHg MV A max kiarra: 555.5 cm/sec2 Ao max PG: LV V1 max: 108.4 cm/sec MV dec time: 8.8 mmHg 101.1 cm/sec MV E/A: 0.94 0.18 sec PA V2 max: TR max kiarra: 133.7 cm/sec 313.1 cm/sec PA max P.2 mmHgTR max P.2 mmHg Left Ventricle The left ventricle is mildly dilated. There is moderate concentric left ventricular hypertrophy. Left ventricular systolic function is moderate to severely reduced. The Ejection Fraction estimate is 30-35%. Doppler measurements suggest reversible restrictive left ventricular relaxation, which is associated with grade III/IV or moderate diastolic dysfunction. There is moderate to severe global hypokinesis of the left ventricle. Regional wall motion abnormalities cannot be excluded due to limited visualization. Right Ventricle The right ventricle is grossly normal size. The right ventricle appears to be hypertrophied. The right ventricular systolic function is mildly reduced. Atria The right atrium is borderline dilated. The left atrium is moderately dilated. Interarterial septum not well visualized and not well dopplered. Cannot comment on ASD/PFO presence. Mitral Valve The mitral valve leaflets are sclerotic, but show no functional abnormalities. There is no mitral valve stenosis. There is a mild amount of mitral regurgitation. Aortic Valve The aortic valve is not well visualized secondary to technical limitations. There is no aortic valve stenosis. No aortic regurgitation is present. Tricuspid Valve The tricuspid valve is not well visualized secondary to technical limitations. There is no tricuspid stenosis. There is a trace to mild amount of tricuspid regurgitation. There is moderate pulmonary hypertension by echo. Right ventricular systolic pressure is estimated to be elevated at 40-50mmHg. Pulmonic Valve The pulmonic valve is not well visualized. Great Vessels The aortic root is not well visualized. The inferior vena cava appeared normal and decreased < 50% with respiration (RAP 10-15 mmHg). Effusions There is no pericardial effusion. Incidental Findings Pacemaker wire noted. : MAGI ROSE > Magi Rose
[2017-10-05] MEDS: INSULIN LISPRO 100 UNIT/ML 3 ML VIAL SUBCUT PRN ×2 (14:44→22:36)
[2017-10-05] MEDS: 1/2 NORMAL SALINE 1,000 ML IV PRN (17:52)
--- NOTE | 2017-10-05 17:53 | PDOC CONSULTATION ---
Consultation Consult Date: 10/05/17 Consult reason:: MYLES on CKD 3 History of Present Illness Admission Date/PCP: 10/03/17 15:53 History of Present Illness: TRUONG PINK is a 77 year old male that has multiple comorbid medical conditions that includes diabetes, hypertension, atrial fibrillation on multaq, peripheral vascular disease, biventricular heart failure , history of ischemic heart disease status post CABG, apnea on CPAP, chronic renal disease stage III with a base creatinine of around 1.5 and apparently a posttraumatic splenectomy. He also has an AICD /pacemaker which is scheduled to be augmented with a new battery. He is status post left AKA. He was admitted with apparently with falls and he has been staggering over the last few weeks now according to his . He also complains of a jerky movement suggestive of myoclonic jerks is been going on for a few weeks as well. He denies clear-cut orthostasis. No apparent history of any chest pains , focal deficits or seizures. His [id number] who is a nurse currently at bedside, opined that he frequently has fluid blebs on his good right leg from his congestive heart failure. She noticed 1 of those blood-filled blebs couple of weeks earlier and later on he had another fall that broke his skin above that one. Soon after that she noticed angry red discoloration of the skin suggestive of cellulitis. She has since being in the hospital noticed a marked improvement after the patient has been put on on IV antibiotics. No history of any fever or chills or riders. No history of being on any NSAIDs. Since being in the hospital initially was put on diuretics on the provisional diagnosis of acute on chronic congestive heart failure and had a good response to that. Yesterday apparently he had some altered mental status and they found that he was retaining CO2 more than usual and that along with respiratory failure he was transferred to the ICU for possible intubation if it came to that. He currently is on BiPAP. Patient's baseline creatinine is around 1.5. Currently its peaked around 2.8. Patient is nonoliguric. Other relevant labs shows that he has got a normal LFT but he has got an elevated ammonia levels. I discussed the patient with Dr. Chávez/hospitalist who has also went on to stop his multaq since his admission because of his worsening renal functions. Not known to have any liver disease and is not an alcoholic. Patient has been begun on gentle hydration. I also did review his latest echocardiogram which shows biventricular heart failure with an LVEF of around 35%. Past Medical History Cardiac Medical History: Reports: Atrial Fibrillation, Coronary Artery Disease, Hyperlipidemia, Hypertension-primary, Myocardial Infarction - x6, Peripheral Vascular Disease, Pulmonary Embolism Pulmonary Medical History: Reports: Asthma, Bronchitis, Chronic Obstructive Pulmonary Disease (COPD), Sleep Apnea - without c-pap Denies: Pneumonia, Respiratory Failure, Tuberculosis Neurological Medical History: Denies: Seizures Endocrine Medical History: Reports: Diabetes Mellitus Type 2 Denies: Hyperthyroidism, Hypothyroidism Renal/ Medical History: Reports: Benign Prostatic Hyperplasia, Chronic Kidney Disease Stage III Denies: End Stage Renal Disease Malignancy Medical History: Denies: Leukemia, Lung Cancer GI Medical History: Reports: Gastroesophageal Reflux Disease Denies: Hepatitis, Hiatal Hernia Musculoskeltal Medical History: Reports: Arthritis Denies: Fibromyalgia, Rheumatoid Arthritis, Systemic Lupus Erythematosus Psychiatric Medical History: Denies: Dementia, Depression Infectious Medical History: Denies: HIV Past Surgical History Past Surgical History: Reports: Cardiac Catheterization, Coronary Artery Bypass Graft - quadruple, Coronary Stent, Internal Defibrillator, Orthopedic Surgery - Left BKA, Pacemaker Denies: Appendectomy, Cholecystectomy, Gastric Bypass Surgery, Herniorrhaphy , Tonsillectomy Social History Lives with: Family Smoking Status: Former Smoker Number of Years Smokin Frequency of Alcohol Use: None Hx Recreational Drug Use: No Drugs: None Hx Prescription Drug Abuse: No - Advance Directive Resuscitation Status: Full Code Family History Parental Family History Reviewed: Yes - negative for ESRD Children Family History Reviewed: No Sibling(s) Family History Reviewed.: No Medication/Allergy Home Medications: Albuterol Sulfate [Ventolin HFA MDI 18 GM] 1 puff IH Q6HP PRN 10/03/17 Allopurinol [Zyloprim 300 mg Tablet] 150 mg PO DAILY 10/03/17 Aspirin [Aspirin EC] 81 mg PO DAILY 10/03/17 Atorvastatin Calcium [Lipitor 40 mg Tablet] 40 mg PO QHS 10/03/17 Budesonide/Formoterol Fumarate [Symbicort Hfa 160-4.5 Mcg Inhaler 6 gm] 2 puff IH Q12 10/03/17 Bumetanide [Bumex 2 mg Tablet] 2 mg PO Q12 10/03/17 Cholecalciferol (Vitamin D3) [Vitamin D3 400 Unit Tablet] 400 unit PO DAILY Dronedarone Hydrochloride [Multaq 400 Mg Tablet] 400 mg PO Q12 10/03/17 Finasteride [Proscar 5 mg Tablet] 5 mg PO QHS 10/03/17 Hydralazine HCl [Apresoline 25 mg Tablet] 25 mg PO Q12 10/03/17 Hydrocodone Bit/Acetaminophen [Hydrocodon-Acetaminophn 10-325] 1 tab PO Q6HP PRN 10/03/17 Insulin Glargine,Hum.rec.anlog [Lantus Solostar] 8 unit SQ QHS 10/03/17 Isosorbide Mononitrate [Isosorbide Mononitrate ER] 90 mg PO DAILY 10/03/17 Magnesium Oxide [Mag-Ox 400 mg Tablet] 400 mg PO BID 10/03/17 Metolazone [Zaroxolyn 2.5 Mg Tablet] 2.5 mg PO MOWEFR@1000 10/03/17 Metoprolol Succinate [Toprol Xl 50 mg Tab.sr] 50 mg PO DAILY 10/03/17 Montelukast Sodium [Singulair 10 mg Tablet] 10 mg PO QHS 10/03/17 Multivitamin [Tab-A-Maris (Multiple Vitamin) Tablet] 1 tab PO DAILY 10/03/17 Omeprazole 20 mg PO DAILY 10/03/17 Polyethylene Glycol 3350 [Miralax Powder 17 gm/Packet] 1 packet PO QPMP PRN Pregabalin [Lyrica] 150 mg PO Q12 10/03/17 Ranolazine [Ranexa 500 mg Tab.sr] 1,000 mg PO Q12 10/03/17 Sennosides/Docusate 8.6-50 mg [Senna Plus Tablet] 1 tab PO BID 10/03/17 Tamsulosin HCl [Flomax 0.4 mg Cap.sr] 0.8 mg PO QHS 10/03/17 Terazosin HCl 1 mg PO DAILY 10/03/17 Tiotropium [place] [Spiriva Handihaler 5 Cap/Kit (18 Mcg/Cap)] 1 cap IH DAILY Warfarin Sodium [Coumadin 2 mg Tablet] 2 mg PO QHS 10/03/17 Zolpidem Tartrate [Ambien 5 mg Tablet] 5 mg PO HSP PRN 10/03/17 Allergies/Adverse Reactions: Penicillins Allergy (Unknown, Verified 05/17/17 10:40) vancomycin [Vancomycin] Adverse Reaction (Verified 08/24/16 13:13) Review of Systems Constitutional: PRESENT: weakness. ABSENT: fever(s), headache(s), night sweats Nose, Mouth, and Throat: ABSENT: mouth pain, sore throat Cardiovascular: PRESENT: dyspnea on exertion, edema. ABSENT: chest pain, orthropnea, palpitations Respiratory: PRESENT: dyspnea. ABSENT: hemoptysis Gastrointestinal: PRESENT: constipation. ABSENT: abdominal pain, diarrhea, dysphagia, heartburn, hematemesis, hematochezia, nausea, vomiting Genitourinary: ABSENT: dysuria, hematuria Neurological: PRESENT: abnormal gait, abnormal movements - That is indicative of myoclonic jerks. ABSENT: focal weakness Hematologic/Lymphatic: ABSENT: easy bruising, lymphadenopathy Physical Exam Vital Signs: Temp Pulse Resp BP Pulse Ox 97.2 F 61 18 149/64 H 97 10/05/17 15:27 10/05/17 16:42 10/05/17 16:42 10/05/17 15:27 10/05/17 16:42 Intake & Output 10/04/17 10/05/17 10/06/17 06:59 06:59 06:59 Intake Total 1455 1596 Output Total 950 1620 Balance 1455 646 -1620 Weight 99.3 kg 101.2 kg General appearance: PRESENT: mild distress, obese Eye exam: PRESENT: conjunctiva pink, EOMI, PERRLA. ABSENT: nystagmus, scleral icterus Ear exam: PRESENT: normal external ear exam Mouth exam: PRESENT: moist, neck supple Neck exam: ABSENT: lymphadenopathy, meningismus, tenderness, thyromegaly, tracheal deviation Respiratory exam: PRESENT: clear to auscultation dipti, crackles - Scattered, decreased breath sounds, symmetrical Cardiovascular exam: PRESENT: +S1, +S2 GI/Abdominal exam: PRESENT: normal bowel sounds, soft. ABSENT: organomegaly, tenderness Extremities exam: PRESENT: other - Be unwrapped his bandages over his right leg that shows no clear-cut evidence as to indicate an abscess or postoperative changes around his open wounds. However he has got evidences of healing cellulitis and also skin changes suggestive of peripheral and venous stasis.. ABSENT: pedal edema Neurological exam: PRESENT: alert, oriented to person, oriented to place, oriented to time, other - He did have asterixis Psychiatric exam: PRESENT: agitated Skin exam: PRESENT: mottled. ABSENT: cyanosis, erythema Results Laboratory Results: 10/05/17 03:56 10/05/17 03:54 10/04/17 10/04/17 10/04/17 16:34 16:34 17:20 WBC 7.3 RBC 4.07 L Hgb 12.2 L Hct 37.8 L MCV 93 MCH 30.1 MCHC 32.4 RDW 17.4 H Plt Count 80 L Seg Neutrophils % 72.0 Lymphocytes % 12.1 L Monocytes % 14.3 H Eosinophils % 1.3 Basophils % 0.3 Absolute Neutrophils 5.3 Absolute Lymphocytes 0.9 Absolute Monocytes 1.1 Absolute Eosinophils 0.1 Absolute Basophils 0.0 Carbonic Acid 1.83 H HCO3/H2CO3 Ratio 17:1 ABG pH 7.35 ABG pCO2 60.9 H ABG pO2 74.0 L ABG HCO3 32.8 H ABG O2 Saturation 93.8 L ABG Base Excess 5.5 FiO2 60% Sodium 141.3 Potassium 4.5 D Chloride 101 Carbon Dioxide 30 Anion Gap 10 BUN 69 H Creatinine 2.70 H Est GFR ( Amer) 28 L Est GFR (Non-Af Amer) 23 L Glucose 155 H Calcium 7.8 L Phosphorus Magnesium Total Bilirubin 0.6 AST 16 L ALT 28 Alkaline Phosphatase 101 Total Protein 5.6 L Albumin 3.1 L 10/04/17 10/05/17 10/05/17 22:15 03:54 03:56 WBC 4.8 RBC 4.17 L Hgb 12.6 L Hct 38.9 MCV 93 MCH 30.2 MCHC 32.3 RDW 17.6 H Plt Count 65 L Seg Neutrophils % Lymphocytes % Monocytes % Eosinophils % Basophils % Absolute Neutrophils Absolute Lymphocytes Absolute Monocytes Absolute Eosinophils Absolute Basophils Carbonic Acid 1.64 H HCO3/H2CO3 Ratio 18:1 ABG pH 7.36 ABG pCO2 54.4 H ABG pO2 80.0 ABG HCO3 30.3 H ABG O2 Saturation 95.2 ABG Base Excess 3.6 FiO2 60% Sodium 142.9 Potassium 4.3 Chloride 104 Carbon Dioxide 31 H Anion Gap 8 BUN 65 H Creatinine 2.30 H Est GFR ( Amer) 33 L Est GFR (Non-Af Amer) 28 L Glucose 231 H Calcium 8.3 L Phosphorus 3.0 Magnesium 2.4 H Total Bilirubin AST ALT Alkaline Phosphatase Total Protein Albumin 10/05/17 10/05/17 08:15 13:05 WBC RBC Hgb Hct MCV MCH MCHC RDW Plt Count Seg Neutrophils % Lymphocytes % Monocytes % Eosinophils % Basophils % Absolute Neutrophils Absolute Lymphocytes Absolute Monocytes Absolute Eosinophils Absolute Basophils Carbonic Acid 1.80 H 1.63 H HCO3/H2CO3 Ratio 18:1 17:1 ABG pH 7.35 7.35 ABG pCO2 59.9 H 54.0 H ABG pO2 284.6 H 225.2 H ABG HCO3 32.4 H 29.2 H ABG O2 Saturation 99.6 H 99.4 H ABG Base Excess 5.1 2.5 FiO2 60% 55% Sodium Potassium Chloride Carbon Dioxide Anion Gap BUN Creatinine Est GFR ( Amer) Est GFR (Non-Af Amer) Glucose Calcium Phosphorus Magnesium Total Bilirubin AST ALT Alkaline Phosphatase Total Protein Albumin 10/03/17 10/03/17 10/03/17 17:06 17:06 23:20 Creatine Kinase 26 L 29 L CK-MB (CK-2) 0.56 10/03/17 10/04/17 10/04/17 23:20 05:41 05:41 Creatine Kinase 25 L CK-MB (CK-2) 0.81 0.48 Impressions: Head CT 10/04/17 00:00 IMPRESSION: NO ACUTE INTRACRANIAL PROCESS. NO SIGNIFICANT CHANGE FROM PRIOR STUDY. EVIDENCE OF ACUTE STROKE: NO. Renal Ultrasound 10/04/17 00:00 IMPRESSION: NORMAL RENAL AND BLADDER ULTRASOUND. Chest X-Ray 10/05/17 00:00 IMPRESSION: STABLE APPEARANCE OF THE CHEST. MILD INTERSTITIAL PROMINENCE LIKELY DUE TO MILD CHRONIC SCARRING. NO SIGNIFICANT CHANGE. Assessment & Plan - Diagnosis (1) Acute kidney injury superimposed on CKD Is this a current diagnosis for this admission?: Yes Plan: Multifactorial. Prime causes that one has to think of here is ATN from the cellulitis and sepsis, dehydration from possible overdiuresis, congestive heart failure/prerenal. Agree with current gentle hydration please dose medications to 25 cc of GFR. (2) Asterixis Is this a current diagnosis for this admission?: Yes Plan: Along with his recent ammonia levels brings in the liver cirrhosis as a causative factor. Culprit could be the multaq or also some other causes of liver cirrhosis including fatty liver and Metzger which needs to be ruled out. Have discussed with the hospitalist to entertain this diagnosis and rule out that possibility. Discussed starting the patient on lactulose while he is being worked up. Morbid obesity one could also entertain fatty liver as an etiology. Radiological evaluation either with an ultrasound or CT scan would be also helpful. We did look back and found an old abdominal ultrasound from February 2016 which did show fatty infiltration of his liver which definitely would bring in Metzger as a cause for liver cirrhosis (3) CHF exacerbation Qualifiers: Congestive heart failure type: unspecified congestive heart failure type Qualified Code(s): I50.9 - Heart failure, unspecified Is this a current diagnosis for this admission?: Yes Plan: Currently compensated. Do not see any need for any diuretics at the moment. However that could change. (4) Cellulitis of right lower extremity Is this a current diagnosis for this admission?: Yes Plan: Is being appropriately treated with antibiotics that seems to be healing his cellulitis. Please dose medications for GFR of 25 cc/min. (5) Hypertension Qualifiers: Hypertension type: essential hypertension Qualified Code(s): I10 - Essential (primary) hypertension Is this a current diagnosis for this admission?: Yes Plan: Relatively controlled. Monitor. (6) Acute on chronic respiratory failure with hypoxia and hypercapnia Plan: Currently on BiPAP. Apparently a chronic CO2 retainer. Glenn not see the level of CO2 is a cause for his altered mental status and the moment. (7) Chronic kidney disease, stage 3 Is this a current diagnosis for this admission?: Yes Plan: Possible underlying CKD from diabetes/hypertension/heart failure. Recommend follow-up as an outpatient (8) Constipation Qualifiers: Constipation type: chronic idiopathic constipation Qualified Code(s): K59.04 - Chronic idiopathic constipation Plan: Suggested lactulose for multiple reasons. (9) DM type 2 (diabetes mellitus, type 2) Qualifiers: Diabetes mellitus complication status: with circulatory complication Diabetes mellitus complication detail: with peripheral angiopathy without gangrene Diabetes mellitus exterminator helper insulin use: with exterminator helper use Qualified Code(s): E11.51 - Type 2 diabetes mellitus with diabetic peripheral angiopathy without gangrene; Z79.4 - intermediate project manager (current) use of insulin Is this a current diagnosis for this admission?: Yes Plan: Recommend tight control post discharge. (10) Chronic idiopathic thrombocytopenia Plan: In late 2016 his platelet counts were between 101 and since then it has been in the 60 to 90 range. Unsure of the etiology.
[2017-10-05] MEDS: OXYCODONE-ACETAMINOPHEN 5-325 MG TABLET PO PRN (18:21)
--- NOTE | 2017-10-05 21:43 | PDOC PROGRESS REPORT ---
Subjective Progress Note for:: 10/05/17 Subjective:: Patient was moved to the unit yesterday afternoon. He remains critically ill and currently on bilevel therapy. He claims some shortness of breath. Patient was noted to have significant problems with asterixis. Subsequently ammonia level came up elevated. Telemetry strips were reviewed. It showed normal AV paced function of the defibrillator. Twelve-lead EKG was also reviewed. 2D echo was obtained. It showed depressed LVEF, RVEF seems relatively well- preserved. Please see dictated report. Reason For Visit: ACUTE RESPIRATORY FAILURE, ACUTE ON CHRONIC KIDNEY Physical Exam Vital Signs: Temp Pulse Resp BP Pulse Ox 98.1 F 60 16 133/57 H 100 10/05/17 19:32 10/05/17 20:00 10/05/17 19:24 10/05/17 18:00 10/05/17 19:24 Intake & Output 10/04/17 10/05/17 10/06/17 06:59 06:59 06:59 Intake Total 1455 1596 593 Output Total 950 1995 Balance 1455 646 -1402 Weight 99.3 kg 101.2 kg Exam: GENERAL: well-nourished and mild respiratory distress. Alert and oriented x3 HEAD: Atraumatic, normocephalic. EYES: Pupils equal round and reactive to light, extraocular movements intact, sclera anicteric, conjunctiva are normal. ENT: TMs normal, nares patent, oropharynx clear without exudates. Moist mucous membranes. No oral ulcerations or bleeding gums noted NECK: supple without lymphadenopathy. Trachea is central. No cervical or axillary lymphadenopathy noted. Carotids are 2+, JVD WNL LUNGS: Respiration seems nonlabored, no significant accessory muscle action noted. Bilateral coarse crackles noted which are currently stable. Mild wheezes rales or rhonchi noted. No significant dullness noted on percussion. CHEST: Palpation of the chest wall shows no significant chest wall tenderness. No other significant abnormalities noted. HEART: [place] CLINICAL PROGRAM CONSULTANT, No PSH, 1/6 MAGGIE aortic area, 1/6 recinos systolic murmur mitral area, no rubs, no gallops. ABDOMEN: Soft, no significant tenderness appreciated, normoactive bowel sounds. No guarding, no rebound. No rigidity noted . No masses appreciated. EXTREMITIES: left below the knee amputation. The right leg has wound that is is covered up. NEUROLOGICAL: Focused neurological exam showed no significant neurologic deficit. Normal speech, no focal weakness appreciated. PSYCH: Normal mood, normal affect. Judgment and insight within normal limits. SKIN: No significant ecchymosis, rash, ulcerations or signs of pruritus noted. MUSCULOSKELETAL EXAM: No significant joint swelling noted. Results Laboratory Results: 10/05/17 03:56 10/05/17 03:54 10/04/17 10/05/17 10/05/17 22:15 03:54 03:56 WBC 4.8 RBC 4.17 L Hgb 12.6 L Hct 38.9 MCV 93 MCH 30.2 MCHC 32.3 RDW 17.6 H Plt Count 65 L Carbonic Acid 1.64 H HCO3/H2CO3 Ratio 18:1 ABG pH 7.36 ABG pCO2 54.4 H ABG pO2 80.0 ABG HCO3 30.3 H ABG O2 Saturation 95.2 ABG Base Excess 3.6 FiO2 60% Sodium 142.9 Potassium 4.3 Chloride 104 Carbon Dioxide 31 H Anion Gap 8 BUN 65 H Creatinine 2.30 H Est GFR ( Amer) 33 L Est GFR (Non-Af Amer) 28 L Glucose 231 H Calcium 8.3 L Phosphorus 3.0 Magnesium 2.4 H 10/05/17 10/05/17 08:15 13:05 WBC RBC Hgb Hct MCV MCH MCHC RDW Plt Count Carbonic Acid 1.80 H 1.63 H HCO3/H2CO3 Ratio 18:1 17:1 ABG pH 7.35 7.35 ABG pCO2 59.9 H 54.0 H ABG pO2 284.6 H 225.2 H ABG HCO3 32.4 H 29.2 H ABG O2 Saturation 99.6 H 99.4 H ABG Base Excess 5.1 2.5 FiO2 60% 55% Sodium Potassium Chloride Carbon Dioxide Anion Gap BUN Creatinine Est GFR ( Amer) Est GFR (Non-Af Amer) Glucose Calcium Phosphorus Magnesium 10/03/17 10/03/17 10/03/17 17:06 17:06 23:20 Creatine Kinase 26 L 29 L CK-MB (CK-2) 0.56 10/03/17 10/04/17 10/04/17 23:20 05:41 05:41 Creatine Kinase 25 L CK-MB (CK-2) 0.81 0.48 EKG Comments: Telemetry strips shows AV paced rhythm. Impressions: Head CT 10/04/17 00:00 IMPRESSION: NO ACUTE INTRACRANIAL PROCESS. NO SIGNIFICANT CHANGE FROM PRIOR STUDY. EVIDENCE OF ACUTE STROKE: NO. Renal Ultrasound 10/04/17 00:00 IMPRESSION: NORMAL RENAL AND BLADDER ULTRASOUND. Chest X-Ray 10/05/17 00:00 IMPRESSION: STABLE APPEARANCE OF THE CHEST. MILD INTERSTITIAL PROMINENCE LIKELY DUE TO MILD CHRONIC SCARRING. NO SIGNIFICANT CHANGE. Assessment & Plan - Diagnosis (1) Cellulitis of right lower extremity Is this a current diagnosis for this admission?: Yes (2) Peripheral vascular disease Is this a current diagnosis for this admission?: Yes (3) Acute kidney injury superimposed on CKD Is this a current diagnosis for this admission?: Yes (4) CHF exacerbation Qualifiers: Congestive heart failure type: unspecified congestive heart failure type Qualified Code(s): I50.9 - Heart failure, unspecified Is this a current diagnosis for this admission?: Yes (5) Hypertension Qualifiers: Hypertension type: essential hypertension Qualified Code(s): I10 - Essential (primary) hypertension Is this a current diagnosis for this admission?: Yes (6) COPD (chronic obstructive pulmonary disease) Qualifiers: COPD type: COPD with acute exacerbation Qualified Code(s): J44.1 - Chronic obstructive pulmonary disease with (acute) exacerbation (7) Coronary artery disease Qualifiers: Coronary Disease-Associated Artery/Lesion type: unspecified vessel or lesion type [place] vs. transplanted heart: [place] heart Associated angina: angina presence unspecified Qualified Code(s): I25.10 - Atherosclerotic heart disease of [place] coronary artery without angina pectoris Is this a current diagnosis for this admission?: Yes (8) DM type 2 (diabetes mellitus, type 2) Qualifiers: Diabetes mellitus complication status: with circulatory complication Diabetes mellitus complication detail: with peripheral angiopathy without gangrene Diabetes mellitus exterminator termite insulin use: with assisted use Qualified Code(s): E11.51 - Type 2 diabetes mellitus with diabetic peripheral angiopathy without gangrene; Z79.4 - superintendent container terminal (current) use of insulin Is this a current diagnosis for this admission?: Yes - Notes Notes: Patient noted to have multiple ongoing significant problems. Agree with assessment of custom decorating consultant and also hospitalist. Cardiac mora he is maintaining his own. 2D echo results reviewed. Cellulitis right lower extremity: Continue antibiotic therapy. PVD: Currently stable. Acute on chronic kidney disease: Worsening noted. This is a poor prognostic factor for this patient. CHF: Difficult to assess volume status in this patient. This is predominantly due to ongoing COPD, lung crackles. Agree slow hydration and careful watch is needed. Hypertension: Currently stable. COPD: Continue current therapy. Pulmonary involved. CAD: Stable without any anginal chest discomfort. Diabetes: Recommend good control. Asterixis: Patient noted to have asterixis on clinical exam. This is a new finding. Possibly related to elevated ammonia level, renal failure etc. possible significant CO2 retention will also cause this. A CT of the head was negative. Patient has numerous multiple comorbid diagnosis. Overall prognosis is grave. Currently however no interventions being planned. Patient encouraged to keep appointments for defibrillator change out procedure. - Time Time with patient: Greater than 35 minutes - CODE STATUS was discussed, patient remains full code. Surrogate decision-maker patient spouse. Multiple medical problems were addressed. More than 50% of the time spent coordinating care, discussing management plans with involved caregivers. Management plans discussed with involved personnels. Medical decision making was of moderate to high complexity, patient's has multiple comorbidities. Dr. Biggs similar to cover from tomorrow. Medications reviewed and adjusted accordingly: Yes
[2017-10-05] MEDS: FINASTERIDE 5 MG TABLET PO SCH (22:32)
[2017-10-05] MEDS: MONTELUKAST SODIUM 10 MG TABLET PO SCH (22:32)
[2017-10-05] MEDS: WARFARIN SODIUM 2 MG TABLET PO SCH (22:32)
[2017-10-05] MEDS: TAMSULOSIN HCL 0.4 MG CAP.SR.24H PO SCH (22:33)
[2017-10-05] MEDS: ZOLPIDEM TARTRATE 5 MG TABLET PO SCH (22:35)
[2017-10-05] MEDS: ATORVASTATIN CALCIUM 40 MG TABLET PO SCH (22:35)
[2017-10-05] MEDS: METHYLPREDNISOLONE INJ 40 MG/1 ML SDV IV SCH (22:36)
[2017-10-06] MEDS: LACTULOSE SYRUP 20 GM/30 ML UDCUP PO SCH ×5 (00:24→23:03)
[2017-10-06] MEDS: OXYCODONE-ACETAMINOPHEN 5-325 MG TABLET PO PRN ×4 (00:25→23:03)
[2017-10-06 06:43] LABS: INTERNATIONAL RATION (INR) 1.98; PROTHROMBIN TIME 23.6 SEC (11.4-15.4)
[2017-10-06 06:44] LABS: PARTIAL THROMBOPLASTIN TIME 39.2 SEC (23.5-35.8)
[2017-10-06 06:53] LABS: ANION GAP 10 (5-19); BLOOD UREA NITROGEN 55 mg/dL (7-20); CALCIUM 8.6 mg/dL (8.4-10.2); CARBON DIOXIDE 28 mmol/L (22-30); CHLORIDE 105 mmol/L (98-107); GLUCOSE 281 mg/dL (75-110); MAGNESIUM 2.9 mg/dL (1.6-2.3); PHOSPHORUS 3.6 mg/dL (2.5-4.5); POTASSIUM 3.5 mmol/L (3.6-5.0); SODIUM 143.2 mmol/L (137-145)
[2017-10-06 06:55] LABS: HEMATOCRIT 36.3 % (37.9-51.0); HEMOGLOBIN 11.8 g/dL (13.5-17.0); MEAN CORPUSCULAR HEMOGLOBIN 30.6 pg (27.0-33.4); MEAN CORPUSCULAR HGB CONC 32.6 g/dL (32.0-36.0); MEAN CORPUSCULAR VOLUME 94 fl (80-97); RED BLOOD COUNT 3.87 10^6/uL (4.35-5.55); RED CELL DISTRIBUTION WIDTH 17.8 % (11.5-14.0)
[2017-10-06 07:00] LABS: PLATELET COUNT 96 10^3/uL (150-450); WHITE BLOOD COUNT 11.4 10^3/uL (4.0-10.5)
[2017-10-06 07:18] LABS: ARTERIAL BLOOD BASE EXCESS 3.6 mmol/L; ARTERIAL BLOOD HCO3 30.9 mmol/L (20-26); ARTERIAL BLOOD O2 SATURATION 65.1 % (94-98); ARTERIAL BLOOD PCO2 59.7 mmHg (35-45); ARTERIAL BLOOD PH 7.33 (7.35-7.45); ARTERIAL BLOOD TOTAL CO2 32.7 mmol/L (23-27)
[2017-10-06 07:20] LABS: ARTERIAL BLOOD FIO2 4L
[2017-10-06 07:21] LABS: ARTERIAL BLOOD PO2 36.9 mmHg (80-100)
[2017-10-06] MEDS: IPRATROPIUM/ALBUTEROL 0.5-2.5 MG/3 ML AMPUL NEB SCH ×4 (07:43→20:09)
[2017-10-06] MEDS: INSULIN LISPRO 100 UNIT/ML 3 ML VIAL SUBCUT PRN ×3 (08:17→22:54)
--- NOTE | 2017-10-06 09:14 | PDOC PROGRESS REPORT ---
Subjective Progress Note for:: 10/06/17 Subjective:: Patient appears quite comfortable He is alert and awake complaining of some back pain He has no respiratory distress no fever no chills He has been eating his breakfast He states that he had a bowel movement and some abdominal cramping Reason For Visit: ACUTE RESPIRATORY FAILURE, ACUTE ON CHRONIC KIDNEY Physical Exam Vital Signs: Temp Pulse Resp BP Pulse Ox 97.3 F 70 20 116/47 L 100 10/06/17 07:38 10/06/17 08:00 10/06/17 07:38 10/06/17 07:38 10/06/17 07:38 Intake & Output 10/05/17 10/06/17 10/07/17 00:59 00:59 00:59 Intake Total 1985 1659 610 Output Total 450 9760 375 Balance 1535 -1061 235 Weight 99.3 kg 101.2 kg 99.8 kg General appearance: PRESENT: no acute distress, well-nourished Head exam: PRESENT: atraumatic, normocephalic Eye exam: PRESENT: conjunctiva pink, EOMI, PERRLA. ABSENT: scleral icterus Ear exam: PRESENT: normal external ear exam Mouth exam: PRESENT: moist, tongue midline Neck exam: ABSENT: carotid bruit, JVD, lymphadenopathy, thyromegaly Respiratory exam: PRESENT: clear to auscultation dipti. ABSENT: rales, rhonchi, wheezes Cardiovascular exam: PRESENT: RRR. ABSENT: diastolic murmur, rubs, systolic murmur Vascular exam: PRESENT: normal capillary refill GI/Abdominal exam: PRESENT: distended - Slightly, normal bowel sounds, soft, tenderness - Slight diffuse tenderness without guarding or rebound. ABSENT: guarding, mass, organolmegaly, rebound Rectal exam: PRESENT: deferred Extremities exam: PRESENT: full ROM, other - Left BKA. ABSENT: calf tenderness , clubbing, pedal edema Neurological exam: PRESENT: alert, awake, oriented to person, oriented to place , oriented to time, oriented to situation, CN II-XII grossly intact. ABSENT: motor sensory deficit Psychiatric exam: PRESENT: appropriate affect, normal mood. ABSENT: homicidal ideation, suicidal ideation Skin exam: PRESENT: dry, intact, warm. ABSENT: cyanosis, rash Results Laboratory Results: 10/06/17 06:25 10/06/17 06:25 10/05/17 10/06/17 10/06/17 13:05 06:25 06:25 WBC 11.4 H D RBC 3.87 L Hgb 11.8 L Hct 36.3 L MCV 94 MCH 30.6 MCHC 32.6 RDW 17.8 H Plt Count 96 L Carbonic Acid 1.63 H HCO3/H2CO3 Ratio 17:1 ABG pH 7.35 ABG pCO2 54.0 H ABG pO2 225.2 H ABG HCO3 29.2 H ABG O2 Saturation 99.4 H ABG Base Excess 2.5 FiO2 55% Sodium 143.2 Potassium 3.5 L Chloride 105 Carbon Dioxide 28 Anion Gap 10 BUN 55 H Creatinine 2.15 H Est GFR ( Amer) 36 L Est GFR (Non-Af Amer) 30 L Glucose 281 H Calcium 8.6 Phosphorus 3.6 Magnesium 2.9 H Ferritin 20.50 TSH 10/06/17 10/06/17 06:25 07:00 WBC RBC Hgb Hct MCV MCH MCHC RDW Plt Count Carbonic Acid 1.80 H HCO3/H2CO3 Ratio 17:1 ABG pH 7.33 L ABG pCO2 59.7 H ABG pO2 36.9 L* ABG HCO3 30.9 H ABG O2 Saturation 65.1 L ABG Base Excess 3.6 FiO2 4L Sodium Potassium Chloride Carbon Dioxide Anion Gap BUN Creatinine Est GFR ( Amer) Est GFR (Non-Af Amer) Glucose Calcium Phosphorus Magnesium Ferritin TSH 0.12 L 10/03/17 10/03/17 10/03/17 17:06 17:06 23:20 Creatine Kinase 26 L 29 L CK-MB (CK-2) 0.56 10/03/17 10/04/17 10/04/17 23:20 05:41 05:41 Creatine Kinase 25 L CK-MB (CK-2) 0.81 0.48 Impressions: Head CT 10/04/17 00:00 IMPRESSION: NO ACUTE INTRACRANIAL PROCESS. NO SIGNIFICANT CHANGE FROM PRIOR STUDY. EVIDENCE OF ACUTE STROKE: NO. Renal Ultrasound 10/04/17 00:00 IMPRESSION: NORMAL RENAL AND BLADDER ULTRASOUND. Assessment & Plan - Diagnosis (1) CAD (coronary artery disease) Qualifiers: Coronary Disease-Associated Artery/Lesion type: unspecified vessel or lesion type [place] vs. transplanted heart: [place] heart Associated angina: angina presence unspecified Qualified Code(s): I25.10 - Atherosclerotic heart disease of [place] coronary artery without angina pectoris Is this a current diagnosis for this admission?: Yes (2) Cellulitis of right lower extremity Is this a current diagnosis for this admission?: Yes (3) Peripheral vascular disease Is this a current diagnosis for this admission?: Yes (4) COPD (chronic obstructive pulmonary disease) 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 Qualified Code(s): J43.1 - Panlobular emphysema (5) Diabetes type 2, uncontrolled Qualifiers: Diabetes mellitus complication status: with hyperglycemia Diabetes mellitus group home insulin use: with intermediate school teacher use Qualified Code(s): E11.65 - Type 2 diabetes mellitus with hyperglycemia; Z79.4 - moth exterminator (current) use of insulin; Z79.4 - moth exterminator (current) use of insulin; Z79.4 - jail ( current) use of insulin; Z79.4 - moth exterminator (current) use of insulin Is this a current diagnosis for this admission?: Yes (6) PVD (peripheral vascular disease) Is this a current diagnosis for this admission?: Yes (7) Acute kidney injury superimposed on CKD Is this a current diagnosis for this admission?: Yes (8) Increased ammonia level Is this a current diagnosis for this admission?: Yes - Plan Summary Plan Summary: Patient appears quite stable at this time ; he may be transferred to [facility] Continue prudent hydration Follow-up renal function Echocardiogram abdominal ultrasound are pending We will reevaluate diabetes management this patient has elevated blood sugars Continue antibiotic management
[2017-10-06] MEDS ORDERED: INSULIN GLARGINE,HUM.REC.ANLOG 1,000 UNIT/10 ML UNIT SUBCUT SCH (09:15)
[2017-10-06] MEDS ORDERED: SIMETHICONE 80 MG TAB.CHEW PO PRN (10:03)
--- NOTE | 2017-10-06 10:08 | RADIOLOGY REPORT (SQ) ---
EXAM DESCRIPTION: CHEST SINGLE VIEW CLINICAL HISTORY: 77 years, Male, acute chronic resp failure COMPARISON: .. FINDINGS: Moderate patchiness of the left mid and lower lung field, prominent interstitium, moderate enlargement of the cardiac silhouette, median sternotomy, left cardiac stimulation device and leads, no pneumothorax, and moderate dextroconvexity. IMPRESSION: New moderate pneumonia, patchy edema, and/or atelectasis of the left mid and lower lung field. 2011 [employer]- All Rights Reserved
--- NOTE | 2017-10-06 10:08 | RADIOLOGY REPORT (SQ) ---
EXAM DESCRIPTION: U/S ABDOMEN LIMITED W/O DOP CLINICAL HISTORY: 77 years, Male, Elevated ammonia level COMPARISON: None. LIMITATIONS: As below. FINDINGS: 18.7 cm mild hepatic steatosis. Cholelithiasis. Negative sonographic Villarreal's test. 0.5 cm diameter common duct, echogenic chronic 8.2 cm renal disease pattern, and no significant free fluid. Partially obscured aorta. Obscured pancreas. IMPRESSION: No acute findings. Cholelithiasis. Limitation. 2010 [facility] [employer]- All Rights Reserved
--- NOTE | 2017-10-06 10:32 | EKG REPORT ---
SEVERITY:- ABNORMAL ECG - VENTRICULAR-PACED COMPLEXES NONSPECIFIC INTRAVENTRICULAR CONDUCTION DELAY INFERIOR AR OLD : Confirmed by: Magi Garcia 06-Oct-2017 10:31:11
[2017-10-06] MEDS ORDERED: ONDANSETRON HCL INJ/PF 4 MG/2 ML SDV IV PRN (11:06)
[2017-10-06] MEDS ORDERED: ALBUTEROL SULFATE 0.083% NEB 2.5 MG/3 ML AMPUL NEB PRN (11:09)
[2017-10-06] MEDS: HYDRALAZINE HCL 25 MG TABLET PO SCH ×2 (11:28→22:58)
[2017-10-06] MEDS: MULTIVITAMIN TABLET PO SCH (11:29)
[2017-10-06] MEDS: MAGNESIUM OXIDE 400 MG TABLET PO SCH (11:29)
[2017-10-06] MEDS: ISOSORBIDE MONONITRATE 30 MG TAB.ER.24H PO SCH (11:30)
[2017-10-06] MEDS: METOPROLOL SUCCINATE 50 MG TAB.SR.24H PO SCH (11:31)
[2017-10-06] MEDS: FAMOTIDINE 20 MG TABLET PO SCH ×2 (11:31→22:59)
[2017-10-06] MEDS: ASPIRIN 81 MG TABLET, ENT COATED PO SCH (11:32)
[2017-10-06] MEDS: DOXAZOSIN MESYLATE 1 MG TABLET PO SCH (11:32)
[2017-10-06] MEDS: RANOLAZINE 500 MG TAB.SR.12H PO SCH ×2 (11:33→23:00)
[2017-10-06] MEDS: CHOLECALCIFEROL (D3) 400 UNIT TABLET PO SCH (11:33)
[2017-10-06] MEDS: BUDESONIDE/FORMOTEROL 160-4.5 MCG 60 PUFF/6 GM MDI IH SCH ×2 (11:34→23:01)
[2017-10-06] MEDS: METHYLPREDNISOLONE INJ 40 MG/1 ML SDV IV SCH ×2 (11:37→23:01)
[2017-10-06] MEDS: INSULIN GLARGINE,HUM.REC.ANLOG 300 UNIT/3 ML INSULN.PEN SUBCUT SCH ×2 (11:38→22:53)
[2017-10-06] MEDS: SENNOSIDES/DOCUSATE 8.6-50 MG 1 EACH TABLET PO SCH ×2 (12:07→17:06)
--- NOTE | 2017-10-06 15:18 | PDOC PROGRESS REPORT ---
Subjective Progress Note for:: 10/06/17 Subjective:: Patient noted to be much improved since yesterday. He is currently off BiPAP therapy and is more comfortable. He is describing some abdominal distention. Telemetry strips were reviewed. It showed normal AV paced function of the defibrillator. Patient noted to have sinus rhythm with intermittent paced ventricular beats.. 2D echo was reviewed. It showed depressed LVEF, RVEF seems relatively well- preserved. Please see dictated report. Reason For Visit: ACUTE RESPIRATORY FAILURE, ACUTE ON CHRONIC KIDNEY Physical Exam Vital Signs: Temp Pulse Resp BP Pulse Ox 97.5 F 66 16 117/40 L 94 10/06/17 12:00 10/06/17 12:28 10/06/17 12:28 10/06/17 12:00 10/06/17 12:28 Intake & Output 10/05/17 10/06/17 10/07/17 06:59 06:59 06:59 Intake Total 1596 1203 Output Total 950 2495 400 Balance 646 -1292 -400 Weight 101.2 kg 99.8 kg Exam: GENERAL: well-nourished and mild respiratory distress. Alert and oriented x3 HEAD: Atraumatic, normocephalic. EYES: Pupils equal round and reactive to light, extraocular movements intact, sclera anicteric, conjunctiva are normal. ENT: TMs normal, nares patent, oropharynx clear without exudates. Moist mucous membranes. No oral ulcerations or bleeding gums noted NECK: supple without lymphadenopathy. Trachea is central. No cervical or axillary lymphadenopathy noted. Carotids are 2+, JVD WNL LUNGS: Respiration seems nonlabored, no significant accessory muscle action noted. Bilateral coarse crackles noted which are currently stable. Mild wheezes rales or rhonchi noted. No significant dullness noted on percussion. CHEST: Palpation of the chest wall shows no significant chest wall tenderness. No other significant abnormalities noted. 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 ABDOMEN: Soft, no significant tenderness appreciated, normoactive bowel sounds. No guarding, no rebound. No rigidity noted . No masses appreciated. Abdominal distention noted EXTREMITIES: left below the knee amputation. The right leg has wound that is is covered up. NEUROLOGICAL: Focused neurological exam showed no significant neurologic deficit. Normal speech, no focal weakness appreciated. PSYCH: Normal mood, normal affect. Judgment and insight within normal limits. SKIN: No significant ecchymosis, rash, ulcerations or signs of pruritus noted. MUSCULOSKELETAL EXAM: No significant joint swelling noted. Results Laboratory Results: 10/06/17 06:25 10/06/17 06:25 10/06/17 10/06/17 10/06/17 06:25 06:25 06:25 WBC 11.4 H D RBC 3.87 L Hgb 11.8 L Hct 36.3 L MCV 94 MCH 30.6 MCHC 32.6 RDW 17.8 H Plt Count 96 L Carbonic Acid HCO3/H2CO3 Ratio ABG pH ABG pCO2 ABG pO2 ABG HCO3 ABG O2 Saturation ABG Base Excess FiO2 Sodium 143.2 Potassium 3.5 L Chloride 105 Carbon Dioxide 28 Anion Gap 10 BUN 55 H Creatinine 2.15 H Est GFR ( Amer) 36 L Est GFR (Non-Af Amer) 30 L Glucose 281 H Calcium 8.6 Phosphorus 3.6 Magnesium 2.9 H Ferritin 20.50 TSH 0.12 L 10/06/17 07:00 WBC RBC Hgb Hct MCV MCH MCHC RDW Plt Count Carbonic Acid 1.80 H HCO3/H2CO3 Ratio 17:1 ABG pH 7.33 L ABG pCO2 59.7 H ABG pO2 36.9 L* ABG HCO3 30.9 H ABG O2 Saturation 65.1 L ABG Base Excess 3.6 FiO2 4L Sodium Potassium Chloride Carbon Dioxide Anion Gap BUN Creatinine Est GFR ( Amer) Est GFR (Non-Af Amer) Glucose Calcium Phosphorus Magnesium Ferritin TSH 10/04/17 12:18 Clean Catch Midstream Urine Culture - Final NO GROWTH 2 DAYS 10/03/17 10/03/17 10/03/17 17:06 17:06 23:20 Creatine Kinase 26 L 29 L CK-MB (CK-2) 0.56 10/03/17 10/04/17 10/04/17 23:20 05:41 05:41 Creatine Kinase 25 L CK-MB (CK-2) 0.81 0.48 Impressions: Head CT 10/04/17 00:00 IMPRESSION: NO ACUTE INTRACRANIAL PROCESS. NO SIGNIFICANT CHANGE FROM PRIOR STUDY. EVIDENCE OF ACUTE STROKE: NO. Renal Ultrasound 10/04/17 00:00 IMPRESSION: NORMAL RENAL AND BLADDER ULTRASOUND. Abdomen Ultrasound 10/06/17 00:00 IMPRESSION: No acute findings. Cholelithiasis. Limitation. 2010 [employer]- All Rights Reserved Chest X-Ray 10/06/17 06:00 IMPRESSION: New moderate pneumonia, patchy edema, and/or atelectasis of the left mid and lower lung field. 2010 [employer]- All Rights Reserved Assessment & Plan - Diagnosis (1) Cellulitis of right lower extremity Is this a current diagnosis for this admission?: Yes (2) Peripheral vascular disease Is this a current diagnosis for this admission?: Yes (3) Acute kidney injury superimposed on CKD Is this a current diagnosis for this admission?: Yes (4) CHF exacerbation Qualifiers: Congestive heart failure type: unspecified congestive heart failure type Qualified Code(s): I50.9 - Heart failure, unspecified Is this a current diagnosis for this admission?: Yes (5) Hypertension Qualifiers: Hypertension type: essential hypertension Qualified Code(s): I10 - Essential (primary) hypertension Is this a current diagnosis for this admission?: Yes (6) COPD (chronic obstructive pulmonary disease) Qualifiers: COPD type: COPD with acute exacerbation Qualified Code(s): J44.1 - Chronic obstructive pulmonary disease with (acute) exacerbation (7) Coronary artery disease Qualifiers: Coronary Disease-Associated Artery/Lesion type: unspecified vessel or lesion type [place] vs. transplanted heart: [place] heart Associated angina: angina presence unspecified Qualified Code(s): I25.10 - Atherosclerotic heart disease of [place] coronary artery without angina pectoris Is this a current diagnosis for this admission?: Yes (8) DM type 2 (diabetes mellitus, type 2) Qualifiers: Diabetes mellitus complication status: with circulatory complication Diabetes mellitus complication detail: with peripheral angiopathy without gangrene Diabetes mellitus correction insulin use: with correction use Qualified Code(s): E11.51 - Type 2 diabetes mellitus with diabetic peripheral angiopathy without gangrene; Z79.4 - [facility] (current) use of insulin Is this a current diagnosis for this admission?: Yes - Notes Notes: Cellulitis right lower extremity: Continue antibiotic therapy. This seems significantly improved. PVD: Currently stable. Acute on chronic kidney disease: Renal function seems to be stabilizing. Certified Coatings Inspector on board. CHF: Difficult to assess volume status in this patient but currently seems euvolemic. This is predominantly due to ongoing COPD, lung crackles. Agree slow hydration and careful watch is needed. Hypertension: Currently stable. COPD: Continue current therapy. Pulmonary involved. Patient on chest x-ray is noted to have pneumonia. Patient on antibiotic. CAD: Stable without any anginal chest discomfort. Diabetes: Recommend good control. Asterixis: This has been noted to improve. A CT of the head was negative. Patient has numerous multiple comorbid diagnosis. Overall prognosis is grave. Currently however no interventions being planned. Patient encouraged to keep appointments for defibrillator change out procedure. - Time Time with patient: Greater than 35 minutes - CODE STATUS was discussed, patient remains full code. Surrogate decision-maker unchanged. Multiple medical problems were addressed. More than 50% of the time spent coordinating care, discussing management plans with involved caregivers. Management plans discussed with involved personnels. Medical decision making was of moderate to high complexity, patient's has multiple comorbidities. Medications reviewed and adjusted accordingly: Yes
[2017-10-06] MEDS ORDERED: 1/2 NORMAL SALINE 1,000 ML with POTASSIUM CHLORIDE 20 MEQ IV PRN ×2 (15:41)
--- NOTE | 2017-10-06 15:48 | PDOC PROGRESS REPORT ---
Subjective Progress Note for:: 10/06/17 Reason For Visit: Patient was seen in the ICU today. Has made a good recovery from what we saw yesterday. He is off the BiPAP. He is making good urine output indicator of possible diuretic phase of ATN recovery. He has had a good bowel movements on the lactulose. He is awake alert and appropriate. He denies any history of chest pains, abdominal pains. Labs were reviewed with the patient and his . His medications were also reviewed. Physical Exam Vital Signs: Temp Pulse Resp BP Pulse Ox 98.1 F 69 14 143/64 H 98 10/06/17 14:00 10/06/17 14:00 10/06/17 14:00 10/06/17 14:00 10/06/17 14:00 Intake & Output 10/05/17 10/06/17 10/07/17 06:59 06:59 06:59 Intake Total 1596 1203 Output Total 950 2495 550 Balance 646 -1292 -550 Weight 101.2 kg 99.8 kg General appearance: PRESENT: no acute distress Respiratory exam: PRESENT: clear to auscultation dipti, symmetrical. ABSENT: crackles Cardiovascular exam: PRESENT: +S1, +S2 GI/Abdominal exam: PRESENT: normal bowel sounds, soft. ABSENT: organomegaly, tenderness Extremities exam: ABSENT: pedal edema Neurological exam: PRESENT: alert, awake, oriented to person, oriented to place Results Laboratory Results: 10/06/17 06:25 10/06/17 06:25 10/06/17 10/06/17 10/06/17 06:25 06:25 06:25 WBC 11.4 H D RBC 3.87 L Hgb 11.8 L Hct 36.3 L MCV 94 MCH 30.6 MCHC 32.6 RDW 17.8 H Plt Count 96 L Carbonic Acid HCO3/H2CO3 Ratio ABG pH ABG pCO2 ABG pO2 ABG HCO3 ABG O2 Saturation ABG Base Excess FiO2 Sodium 143.2 Potassium 3.5 L Chloride 105 Carbon Dioxide 28 Anion Gap 10 BUN 55 H Creatinine 2.15 H Est GFR ( Amer) 36 L Est GFR (Non-Af Amer) 30 L Glucose 281 H Calcium 8.6 Phosphorus 3.6 Magnesium 2.9 H Ferritin 20.50 TSH 0.12 L 10/06/17 07:00 WBC RBC Hgb Hct MCV MCH MCHC RDW Plt Count Carbonic Acid 1.80 H HCO3/H2CO3 Ratio 17:1 ABG pH 7.33 L ABG pCO2 59.7 H ABG pO2 36.9 L* ABG HCO3 30.9 H ABG O2 Saturation 65.1 L ABG Base Excess 3.6 FiO2 4L Sodium Potassium Chloride Carbon Dioxide Anion Gap BUN Creatinine Est GFR ( Amer) Est GFR (Non-Af Amer) Glucose Calcium Phosphorus Magnesium Ferritin TSH 10/04/17 12:18 Clean Catch Midstream Urine Culture - Final NO GROWTH 2 DAYS 10/03/17 10/03/17 10/03/17 17:06 17:06 23:20 Creatine Kinase 26 L 29 L CK-MB (CK-2) 0.56 10/03/17 10/04/17 10/04/17 23:20 05:41 05:41 Creatine Kinase 25 L CK-MB (CK-2) 0.81 0.48 Impressions: Head CT 10/04/17 00:00 IMPRESSION: NO ACUTE INTRACRANIAL PROCESS. NO SIGNIFICANT CHANGE FROM PRIOR STUDY. EVIDENCE OF ACUTE STROKE: NO. Renal Ultrasound 10/04/17 00:00 IMPRESSION: NORMAL RENAL AND BLADDER ULTRASOUND. Abdomen Ultrasound 10/06/17 00:00 IMPRESSION: No acute findings. Cholelithiasis. Limitation. 2010 [employer]- All Rights Reserved Chest X-Ray 10/06/17 06:00 IMPRESSION: New moderate pneumonia, patchy edema, and/or atelectasis of the left mid and lower lung field. 2010 [employer]- All Rights Reserved Assessment & Plan - Diagnosis (1) Acute kidney injury superimposed on CKD Is this a current diagnosis for this admission?: Yes Plan: Lab shows she is making good improvement in his renal numbers. Nonoliguric. Continue on present management but will adjust IV fluids. Electrolytes needs to be monitored carefully. (2) Asterixis Is this a current diagnosis for this admission?: Yes Plan: Recovered. Follow-up with ammonia labs. (3) CHF exacerbation Qualifiers: Congestive heart failure type: unspecified congestive heart failure type Qualified Code(s): I50.9 - Heart failure, unspecified Is this a current diagnosis for this admission?: Yes Plan: Presently compensated. (4) Cellulitis of right lower extremity Is this a current diagnosis for this admission?: Yes Plan: Is being appropriately treated with antibiotics that seems to be healing his cellulitis. Please dose medications for GFR of 25 cc/min. (5) Hypertension Qualifiers: Hypertension type: essential hypertension Qualified Code(s): I10 - Essential (primary) hypertension Is this a current diagnosis for this admission?: Yes Plan: Relatively controlled. Monitor. (6) Acute on chronic respiratory failure with hypoxia and hypercapnia Plan: Improving. Currently he is off the BiPAP. Obviously he will need it at night when he is sleeping. (7) Chronic kidney disease, stage 3 Is this a current diagnosis for this admission?: Yes Plan: Monitor. He should recover his acute kidney insult back to baseline. (8) Constipation Qualifiers: Constipation type: chronic idiopathic constipation Qualified Code(s): K59.04 - Chronic idiopathic constipation Plan: Is a whole lot better on the lactulose now. (9) DM type 2 (diabetes mellitus, type 2) Qualifiers: Diabetes mellitus complication status: with circulatory complication Diabetes mellitus complication detail: with peripheral angiopathy without gangrene Diabetes mellitus technician terminal and repeater insulin use: with technician terminal and repeater use Qualified Code(s): E11.51 - Type 2 diabetes mellitus with diabetic peripheral angiopathy without gangrene; Z79.4 - nursing home (current) use of insulin Is this a current diagnosis for this admission?: Yes (11) Hypokalemia Plan: Will replace and monitor.
[2017-10-06] MEDS ORDERED: DAPTOMYCIN 400 MG in NORMAL SALINE 50 ML IV SCH (18:00)
[2017-10-06] MEDS: POTASSI CL 20 MEQ/1/2NS 1L 1000 ML IV PRN (18:34)
[2017-10-06] MEDS: WARFARIN SODIUM 2 MG TABLET PO SCH (22:54)
[2017-10-06] MEDS: MONTELUKAST SODIUM 10 MG TABLET PO SCH (22:57)
[2017-10-06] MEDS: ZOLPIDEM TARTRATE 5 MG TABLET PO SCH (22:57)
[2017-10-06] MEDS: ATORVASTATIN CALCIUM 40 MG TABLET PO SCH (22:58)
[2017-10-06] MEDS: FINASTERIDE 5 MG TABLET PO SCH (22:59)
[2017-10-06] MEDS: TAMSULOSIN HCL 0.4 MG CAP.SR.24H PO SCH (22:59)
[2017-10-07] MEDS: OXYCODONE-ACETAMINOPHEN 5-325 MG TABLET PO PRN (06:14)
[2017-10-07] MEDS: POTASSI CL 20 MEQ/1/2NS 1L 1000 ML IV PRN (06:14)
[2017-10-07] MEDS: LACTULOSE SYRUP 20 GM/30 ML UDCUP PO SCH ×2 (06:15→11:39)
[2017-10-07] MEDS: IPRATROPIUM/ALBUTEROL 0.5-2.5 MG/3 ML AMPUL NEB SCH ×2 (08:00→12:19)
--- NOTE | 2017-10-07 08:19 | PDOC PROGRESS REPORT ---
Subjective Progress Note for:: 10/07/17 Subjective:: Patient is doing extremely well this morning no chest pain or shortness of breath No fever no chills. His renal function is back to previous chest x-ray performed yesterday showed worsening of the pneumonia? Which does not correlate clinically. We will give the patient 40 mg of Lasix and repeat chest x-ray today Patient may be well enough to be discharged later today Reason For Visit: ACUTE RESPIRATORY FAILURE, ACUTE ON CHRONIC KIDNEY Physical Exam Vital Signs: Temp Pulse Resp BP Pulse Ox 97.3 F 55 L 16 154/66 H 94 10/07/17 07:43 10/07/17 07:43 10/07/17 07:43 10/07/17 07:43 10/07/17 07:43 Intake & Output 10/06/17 10/07/17 10/08/17 00:59 00:59 00:59 Intake Total 1659 1047 990 Output Total 2720 1710 795 Balance -1061 -663 195 Weight 101.2 kg 99.8 kg 100.1 kg General appearance: PRESENT: no acute distress Head exam: PRESENT: atraumatic, normocephalic Eye exam: PRESENT: conjunctiva pink, EOMI, PERRLA. ABSENT: scleral icterus Neck exam: ABSENT: carotid bruit, JVD, lymphadenopathy, thyromegaly Respiratory exam: PRESENT: decreased breath sounds, wheezes - Very few. ABSENT : accessory muscle use, rhonchi Cardiovascular exam: PRESENT: RRR. ABSENT: diastolic murmur, rubs, systolic murmur Extremities exam: PRESENT: other - Right lower extremity Wounds over the villal[place] are shallow ulcerations , oozing serosanguineous fluid ,no pus No edema Neurological exam: PRESENT: alert, awake, oriented to person, oriented to place , oriented to time, oriented to situation, CN II-XII grossly intact. ABSENT: motor sensory deficit Results Laboratory Results: 10/06/17 06:25 10/06/17 06:25 10/04/17 12:18 Clean Catch Midstream Urine Culture - Final NO GROWTH 2 DAYS 10/03/17 10/03/17 10/03/17 17:06 17:06 23:20 Creatine Kinase 26 L 29 L CK-MB (CK-2) 0.56 10/03/17 10/04/17 10/04/17 23:20 05:41 05:41 Creatine Kinase 25 L CK-MB (CK-2) 0.81 0.48 Impressions: Head CT 10/04/17 00:00 IMPRESSION: NO ACUTE INTRACRANIAL PROCESS. NO SIGNIFICANT CHANGE FROM PRIOR STUDY. EVIDENCE OF ACUTE STROKE: NO. Renal Ultrasound 10/04/17 00:00 IMPRESSION: NORMAL RENAL AND BLADDER ULTRASOUND. Abdomen Ultrasound 10/06/17 00:00 IMPRESSION: No acute findings. Cholelithiasis. Limitation. 2010 [employer]- All Rights Reserved Chest X-Ray 10/06/17 06:00 IMPRESSION: New moderate pneumonia, patchy edema, and/or atelectasis of the left mid and lower lung field. 2010 [employer]- All Rights Reserved Assessment & Plan - Diagnosis (1) CAD (coronary artery disease) Qualifiers: Coronary Disease-Associated Artery/Lesion type: unspecified vessel or lesion type [place] vs. transplanted heart: [place] heart Associated angina: angina presence unspecified Qualified Code(s): I25.10 - Atherosclerotic heart disease of [place] coronary artery without angina pectoris Is this a current diagnosis for this admission?: Yes (2) Cellulitis of right lower extremity Is this a current diagnosis for this admission?: Yes Plan: Improved The wounds were cleansed with saline Silvadene g and a nonstick dressing applied, covered with sling (3) Peripheral vascular disease Is this a current diagnosis for this admission?: Yes (4) COPD (chronic obstructive pulmonary disease) 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 Qualified Code(s): J43.1 - Panlobular emphysema Plan: Stable (5) Diabetes type 2, uncontrolled Qualifiers: Diabetes mellitus complication status: with hyperglycemia Diabetes mellitus assistant terminal manager insulin use: with [facility] use Qualified Code(s): E11.65 - Type 2 diabetes mellitus with hyperglycemia; Z79.4 - intermediate project manager (current) use of insulin; Z79.4 - [facility] (current) use of insulin; Z79.4 - [facility] ( current) use of insulin; Z79.4 - [facility] (current) use of insulin Is this a current diagnosis for this admission?: Yes Plan: Increase Lantus insulin yesterday (6) PVD (peripheral vascular disease) Is this a current diagnosis for this admission?: Yes (7) Acute kidney injury superimposed on CKD Is this a current diagnosis for this admission?: Yes Plan: Has improved with hydration Patient is back to his baseline (8) Increased ammonia level Is this a current diagnosis for this admission?: Yes - Time Time Spent with patient: 15-24 minutes - Plan Summary Plan Summary: DC her IV fluids and Ang catheter Patient may be discharged later today if stable
[2017-10-07 08:39] LABS: HEPATITIS A AB IGM Negative (Negative); HEPATITIS B CORE AB IGM Negative (Negative); HEPATITS B SURFACE ANTIGEN Negative (Negative)
[2017-10-07] MEDS: INSULIN LISPRO 100 UNIT/ML 3 ML VIAL SUBCUT PRN (08:39)
--- NOTE | 2017-10-07 09:03 | RADIOLOGY REPORT (SQ) ---
EXAM DESCRIPTION: CHEST SINGLE VIEW COMPLETED DATE/TIME: 10/07/2017 8:54 am REASON FOR STUDY: SOB COMPARISON: 10/06/2017 EXAM PARAMETERS: NUMBER OF VIEWS: One view. TECHNIQUE: Single frontal radiographic view of the chest acquired. RADIATION DOSE: NA LIMITATIONS: None. FINDINGS: LUNGS AND PLEURA: The previously described patchy densities in the left mid and lower lung field appear improved. Remaining lung raygoza are clear. MEDIASTINUM AND HILAR STRUCTURES: No masses. Contour normal. HEART AND VASCULAR STRUCTURES: Cardiac silhouette remains enlarged and is unchanged in configuration. BONES: No acute findings. HARDWARE: Patient is status post median sternotomy. AICD device is unchanged in position OTHER: No other significant finding. IMPRESSION: Interval improvement as noted above. TECHNICAL DOCUMENTATION: JOB ID: [id number] [employer]- All Rights Reserved
[2017-10-07 09:06] LABS: HEPATITIS C VIRUS ANTIBODY <0.1 s/co ratio (0.0-0.9)
[2017-10-07] MEDS: RANOLAZINE 500 MG TAB.SR.12H PO SCH (10:19)
[2017-10-07] MEDS: CHOLECALCIFEROL (D3) 400 UNIT TABLET PO SCH (10:19)
[2017-10-07] MEDS: FAMOTIDINE 20 MG TABLET PO SCH (10:20)
[2017-10-07] MEDS: METOPROLOL SUCCINATE 50 MG TAB.SR.24H PO SCH (10:20)
[2017-10-07] MEDS: HYDRALAZINE HCL 25 MG TABLET PO SCH (10:21)
[2017-10-07] MEDS: ISOSORBIDE MONONITRATE 30 MG TAB.ER.24H PO SCH (10:22)
[2017-10-07] MEDS: DOXAZOSIN MESYLATE 1 MG TABLET PO SCH (10:22)
[2017-10-07] MEDS: MULTIVITAMIN TABLET PO SCH (10:22)
[2017-10-07] MEDS: ASPIRIN 81 MG TABLET, ENT COATED PO SCH (10:22)
[2017-10-07] MEDS: METHYLPREDNISOLONE INJ 40 MG/1 ML SDV IV SCH (10:23)
[2017-10-07] MEDS: INSULIN GLARGINE,HUM.REC.ANLOG 300 UNIT/3 ML INSULN.PEN SUBCUT SCH (10:23)
[2017-10-07] MEDS: BUDESONIDE/FORMOTEROL 160-4.5 MCG 60 PUFF/6 GM MDI IH SCH (10:24)
[2017-10-07] MEDS: SENNOSIDES/DOCUSATE 8.6-50 MG 1 EACH TABLET PO SCH (10:24)
--- NOTE | 2017-10-07 11:42 | PDOC PROGRESS REPORT ---
Subjective Progress Note for:: 10/06/17 Subjective:: Much more arousable Reason For Visit: ACUTE RESPIRATORY FAILURE, ACUTE ON CHRONIC KIDNEY Physical Exam Vital Signs: Temp Pulse Resp BP Pulse Ox 97.3 F 70 17 116/47 L 100 10/06/17 07:38 10/06/17 08:00 10/06/17 07:41 10/06/17 07:38 10/06/17 07:41 Intake & Output 10/05/17 10/06/17 10/07/17 06:59 06:59 06:59 Intake Total 1596 1203 Output Total 950 2495 100 Balance 646 -1292 -100 Weight 101.2 kg 99.8 kg General appearance: PRESENT: no acute distress, cooperative, disheveled, morbidly obese, well-developed. ABSENT: mild distress, obese, severe distress Head exam: PRESENT: atraumatic, normocephalic Eye exam: PRESENT: conjunctiva pale, EOMI. ABSENT: conjunctival injection, conjunctiva pink, nystagmus, periorbital swelling, scleral icterus Mouth exam: PRESENT: dry mucosa, neck supple, tongue midline. ABSENT: moist Teeth exam: PRESENT: poor dentation Neck exam: ABSENT: carotid bruit, JVD, lymphadenopathy, thyromegaly, tracheal deviation, tracheostomy Respiratory exam: PRESENT: decreased breath sounds, prolonged expiratory phas, rales, rhonchi, symmetrical, unlabored, wheezes. ABSENT: accessory muscle use, chest wall tenderness, clear to auscultation dipti, crackles, retraction, stridor , tachypnea Cardiovascular exam: PRESENT: RRR, +S1, +S2 Pulses: PRESENT: normal radial pulses GI/Abdominal exam: PRESENT: normal bowel sounds, soft. ABSENT: distended, guarding, mass, organolmegaly, rebound, tenderness Extremities exam: PRESENT: other. ABSENT: clubbing, joint swelling Musculoskeletal exam: ABSENT: ambulatory, deformity, dislocation Neurological exam: PRESENT: awake Psychiatric exam: PRESENT: flat affect Skin exam: PRESENT: dry, warm Results Laboratory Results: 10/06/17 06:25 10/06/17 06:25 10/05/17 10/06/17 10/06/17 13:05 06:25 06:25 WBC 11.4 H D RBC 3.87 L Hgb 11.8 L Hct 36.3 L MCV 94 MCH 30.6 MCHC 32.6 RDW 17.8 H Plt Count 96 L Carbonic Acid 1.63 H HCO3/H2CO3 Ratio 17:1 ABG pH 7.35 ABG pCO2 54.0 H ABG pO2 225.2 H ABG HCO3 29.2 H ABG O2 Saturation 99.4 H ABG Base Excess 2.5 FiO2 55% Sodium 143.2 Potassium 3.5 L Chloride 105 Carbon Dioxide 28 Anion Gap 10 BUN 55 H Creatinine 2.15 H Est GFR ( Amer) 36 L Est GFR (Non-Af Amer) 30 L Glucose 281 H Calcium 8.6 Phosphorus 3.6 Magnesium 2.9 H Ferritin 20.50 TSH 10/06/17 10/06/17 06:25 07:00 WBC RBC Hgb Hct MCV MCH MCHC RDW Plt Count Carbonic Acid 1.80 H HCO3/H2CO3 Ratio 17:1 ABG pH 7.33 L ABG pCO2 59.7 H ABG pO2 36.9 L* ABG HCO3 30.9 H ABG O2 Saturation 65.1 L ABG Base Excess 3.6 FiO2 4L Sodium Potassium Chloride Carbon Dioxide Anion Gap BUN Creatinine Est GFR ( Amer) Est GFR (Non-Af Amer) Glucose Calcium Phosphorus Magnesium Ferritin TSH 0.12 L 10/04/17 12:18 Clean Catch Midstream Urine Culture - Final NO GROWTH 2 DAYS 10/03/17 10/03/17 10/03/17 17:06 17:06 23:20 Creatine Kinase 26 L 29 L CK-MB (CK-2) 0.56 10/03/17 10/04/17 10/04/17 23:20 05:41 05:41 Creatine Kinase 25 L CK-MB (CK-2) 0.81 0.48 Impressions: Head CT 10/04/17 00:00 IMPRESSION: NO ACUTE INTRACRANIAL PROCESS. NO SIGNIFICANT CHANGE FROM PRIOR STUDY. EVIDENCE OF ACUTE STROKE: NO. Renal Ultrasound 10/04/17 00:00 IMPRESSION: NORMAL RENAL AND BLADDER ULTRASOUND. Assessment & Plan - Diagnosis (1) Acute kidney injury superimposed on CKD Is this a current diagnosis for this admission?: Yes Plan: no nephrology avaiable (2) CHF exacerbation Qualifiers: Congestive heart failure type: unspecified congestive heart failure type Qualified Code(s): I50.9 - Heart failure, unspecified Is this a current diagnosis for this admission?: Yes Plan: Improving (3) COPD exacerbation Is this a current diagnosis for this admission?: Yes Plan: Improving (4) Anemia Qualifiers: Other causes of anemia: chronic disease, other Is this a current diagnosis for this admission?: Yes Plan: Anemia of chronic disease - Time Total Critical Time (Minutes): 40
--- NOTE | 2017-10-07 11:45 | PDOC PROGRESS REPORT ---
Subjective Progress Note for:: 10/07/17 Subjective:: Continues to improve Reason For Visit: ACUTE RESPIRATORY FAILURE, ACUTE ON CHRONIC KIDNEY Physical Exam Vital Signs: Temp Pulse Resp BP Pulse Ox 97.3 F 55 L 16 154/66 H 94 10/07/17 07:43 10/07/17 07:43 10/07/17 07:43 10/07/17 07:43 10/07/17 07:43 Intake & Output 10/06/17 10/07/17 10/08/17 06:59 06:59 06:59 Intake Total 1203 1427 Output Total 2495 2230 125 Balance -1292 -803 -125 Weight 99.8 kg 100.1 kg General appearance: PRESENT: no acute distress, cooperative, disheveled, morbidly obese, well-developed. ABSENT: hard of hearing, mild distress, obese, severe distress Head exam: PRESENT: atraumatic, normocephalic Eye exam: PRESENT: conjunctiva pale, EOMI. ABSENT: conjunctival injection, conjunctiva pink, nystagmus, periorbital swelling, scleral icterus Mouth exam: PRESENT: dry mucosa, neck supple, tongue midline. ABSENT: laceration, moist Teeth exam: PRESENT: poor dentation Neck exam: ABSENT: carotid bruit, JVD, lymphadenopathy, thyromegaly, tracheal deviation, tracheostomy Respiratory exam: PRESENT: decreased breath sounds, prolonged expiratory phas, rales, rhonchi, symmetrical, unlabored, wheezes. ABSENT: accessory muscle use, chest wall tenderness, clear to auscultation dipti, crackles, retraction, stridor , tachypnea Cardiovascular exam: PRESENT: RRR, +S1, +S2 Pulses: PRESENT: normal radial pulses GI/Abdominal exam: PRESENT: normal bowel sounds, soft. ABSENT: distended, guarding, mass, organolmegaly, rebound, tenderness Extremities exam: ABSENT: clubbing, joint swelling Musculoskeletal exam: ABSENT: dislocation, tenderness Neurological exam: PRESENT: alert, awake Psychiatric exam: PRESENT: normal mood Skin exam: PRESENT: dry, warm Results Laboratory Results: 10/06/17 06:25 10/06/17 06:25 10/04/17 12:18 Clean Catch Midstream Urine Culture - Final NO GROWTH 2 DAYS 10/03/17 10/03/17 10/03/17 17:06 17:06 23:20 Creatine Kinase 26 L 29 L CK-MB (CK-2) 0.56 10/03/17 10/04/17 10/04/17 23:20 05:41 05:41 Creatine Kinase 25 L CK-MB (CK-2) 0.81 0.48 Impressions: Head CT 10/04/17 00:00 IMPRESSION: NO ACUTE INTRACRANIAL PROCESS. NO SIGNIFICANT CHANGE FROM PRIOR STUDY. EVIDENCE OF ACUTE STROKE: NO. Renal Ultrasound 10/04/17 00:00 IMPRESSION: NORMAL RENAL AND BLADDER ULTRASOUND. Abdomen Ultrasound 10/06/17 00:00 IMPRESSION: No acute findings. Cholelithiasis. Limitation. 2010 [employer]- All Rights Reserved Chest X-Ray 10/07/17 08:06 IMPRESSION: Interval improvement as noted above. Assessment & Plan - Diagnosis (1) Acute kidney injury superimposed on CKD Is this a current diagnosis for this admission?: Yes Plan: no nephrology avaiable (2) CHF exacerbation Qualifiers: Congestive heart failure type: unspecified congestive heart failure type Qualified Code(s): I50.9 - Heart failure, unspecified Is this a current diagnosis for this admission?: Yes Plan: Improving (3) COPD exacerbation Is this a current diagnosis for this admission?: Yes Plan: Improving (4) Anemia Qualifiers: Other causes of anemia: chronic disease, other Is this a current diagnosis for this admission?: Yes Plan: Anemia of chronic disease - Time Total Critical Time (Minutes): 40
[2017-10-07 12:22] VITALS: BP 160/85
--- NOTE | 2017-10-07 18:29 | PDOC DISCHARGE SUMMARY ---
General - Admit/Disc Date/PCP Admission Date/Primary Care Provider: 10/03/17 15:53 Discharge Date: 10/07/17 - Discharge Diagnosis (1) CAD (coronary artery disease) Is this a current diagnosis for this admission?: Yes (2) Cellulitis of right lower extremity Is this a current diagnosis for this admission?: Yes (3) Peripheral vascular disease Is this a current diagnosis for this admission?: Yes (5) Diabetes type 2, uncontrolled Is this a current diagnosis for this admission?: Yes (6) PVD (peripheral vascular disease) Is this a current diagnosis for this admission?: Yes (7) Acute kidney injury superimposed on CKD Is this a current diagnosis for this admission?: Yes (8) Increased ammonia level Is this a current diagnosis for this admission?: Yes (9) Chronic anticoagulation Is this a current diagnosis for this admission?: Yes (10) Hx pulmonary embolism Is this a current diagnosis for this admission?: Yes (11) Acute on chronic respiratory failure with hypoxemia Is this a current diagnosis for this admission?: Yes - Additional Information Resuscitation Status: Full Code Discharge Diet: Cardiac, Diabetic Discharge Activity: Activity As Tolerated Prescriptions: Insulin Glargine,Hum.rec.anlog [Lantus Solostar] 20 unit SQ QHS #1 insuln.pen Bumetanide [Bumex 2 mg Tablet] 1 tab PO DAILY #30 tab Doxycycline Hyclate 100 mg PO BID #20 capsule Prednisone 20 mg PO ASDIR PRN #16 tablet PRN Reason: Home Medications: Albuterol Sulfate [Ventolin HFA MDI 18 GM] 1 puff IH Q6HP PRN 10/03/17 Allopurinol [Zyloprim 300 mg Tablet] 150 mg PO DAILY 10/03/17 Aspirin [Aspirin EC] 81 mg PO DAILY 10/03/17 Atorvastatin Calcium [Lipitor 40 mg Tablet] 40 mg PO QHS 10/03/17 Budesonide/Formoterol Fumarate [Symbicort Hfa 160-4.5 Mcg Inhaler 6 gm] 2 puff IH Q12 10/03/17 Cholecalciferol (Vitamin D3) [Vitamin D3 400 Unit Tablet] 400 unit PO DAILY Dronedarone Hydrochloride [Multaq 400 Mg Tablet] 400 mg PO Q12 10/03/17 Finasteride [Proscar 5 mg Tablet] 5 mg PO QHS 10/03/17 Hydralazine HCl [Apresoline 25 mg Tablet] 25 mg PO Q12 10/03/17 Hydrocodone Bit/Acetaminophen [Hydrocodon-Acetaminophn 10-325] 1 tab PO Q6HP PRN 10/03/17 Isosorbide Mononitrate [Isosorbide Mononitrate ER] 90 mg PO DAILY 10/03/17 Magnesium Oxide [Mag-Ox 400 mg Tablet] 400 mg PO BID 10/03/17 Metoprolol Succinate [Toprol Xl 50 mg Tab.sr] 50 mg PO DAILY 10/03/17 Montelukast Sodium [Singulair 10 mg Tablet] 10 mg PO QHS 10/03/17 Multivitamin [Tab-A-Maris (Multiple Vitamin) Tablet] 1 tab PO DAILY 10/03/17 Omeprazole 20 mg PO DAILY 10/03/17 Polyethylene Glycol 3350 [Miralax Powder 17 gm/Packet] 1 packet PO QPMP PRN Pregabalin [Lyrica] 150 mg PO Q12 10/03/17 Ranolazine [Ranexa 500 mg Tab.sr] 1,000 mg PO Q12 10/03/17 Sennosides/Docusate 8.6-50 mg [Senna Plus Tablet] 1 tab PO BID 10/03/17 Tamsulosin HCl [Flomax 0.4 mg Cap.sr] 0.8 mg PO QHS 10/03/17 Terazosin HCl 1 mg PO DAILY 10/03/17 Tiotropium [place] [Spiriva Handihaler 5 Cap/Kit (18 Mcg/Cap)] 1 cap IH DAILY Warfarin Sodium [Coumadin 2 mg Tablet] 2 mg PO QHS 10/03/17 Zolpidem Tartrate [Ambien 5 mg Tablet] 5 mg PO HSP PRN 10/03/17 Bumetanide [Bumex 2 mg Tablet] 1 tab PO DAILY #30 tab 10/07/17 Doxycycline Hyclate 100 mg PO BID #20 capsule 10/07/17 Insulin Glargine,Hum.rec.anlog [Lantus Solostar] 20 unit SQ QHS #1 insuln.pen Montelukast Sodium [Singulair 10 mg Tablet] 10 mg PO QHS tablet 10/07/17 Prednisone 20 mg PO ASDIR PRN #16 tablet 10/07/17 History of Present Illness Patient complains of: Shortness of breath History of Present Illness: TRUONG PINK is a 77 year old male that has multiple comorbid medical conditions to include chronic kidney disease which appears to be stage II, chronic diastolic congestive heart failure and severe underlying peripheral vascular disease. Has multiple and frequent hospitalizations. He was last hospitalized here in July 2017 for a splenic laceration that occurred after a fall. Most recently, he was admitted to [facility]. Apparently , his AICD was firing at home on a frequent basis. He was recently started on Multaq 400 mg twice a day. In addition, he started taking potassium of his own accord. He was not given a prescription for potassium. He stated that the potassium was helping with his leg cramps. When he presented to the emergency department today his BUN was 74 and his creatinine 2.85. Previously his creatinine has been around 1.5-1.6. In the emergency department he was diagnosed with acute decompensated congestive heart failure and given Lasix. His BNP is only 630. He also has chronic lower extremity wounds. His daughter- in-law is caring for his wounds with a silver impregnated bandage. He also sees Dr. Morel at the wound care clinic. Hospital Course Hospital Course: (1) CAD (coronary artery disease) Qualifiers: Coronary Disease-Associated Artery/Lesion type: unspecified vessel or lesion type [place] vs. 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; troponins were in the intermediate range (2) Cellulitis of right lower extremity Is this a current diagnosis for this admission?: Yes Plan: Improved Was treated with daptomycin IV; the wounds improved patient was discharged on doxycycline; (3) Peripheral vascular disease Is this a current diagnosis for this admission?: Yes (4) COPD (chronic obstructive pulmonary disease) 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 Qualified Code(s): J43.1 - Panlobular emphysema Plan: (5) Diabetes type 2, uncontrolled Qualifiers: Diabetes mellitus complication status: with hyperglycemia 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: with long-term use Qualified Code(s): E11.65 - Type 2 diabetes mellitus with hyperglycemia; Z79.4 - retirement (current) use of insulin; 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; Z79.4 - retirement ( current) use of insulin; Z79.4 - retirement (current) use of insulin Is this a current diagnosis for this admission?: Yes Plan: Blood sugars were quite elevated as patient was treated with steroids; we increased the Lantus insulin during his stay It needs to be monitored as an outpatient (6) Acute kidney injury superimposed on CKD Is this a current diagnosis for this admission?: Yes Plan: Has improved with hydration Patient is back to his baseline (7) Increased ammonia level Is this a current diagnosis for this admission?: Yes Patient's LFTs were very slightly elevated; ammonia was 56; he did improve with lactulose Follow-up with an outpatient is advised ; hepatitis profile was negative (9) acute on chronic respiratory failure with Hypoxemia Likely secondary to acute on chronic diastolic CHF and acute on chronic COPD exacerbation Patient had to be on BiPAP support when initially admitted respiratory status improved greatly at discharge he is oxygenating adequately on room air Physical Exam Vital Signs: Temp Pulse Resp BP Pulse Ox 97.8 F 54 L 17 160/85 H 97 10/07/17 13:17 10/07/17 13:17 10/07/17 13:17 10/07/17 13:17 10/07/17 13:17 Intake & Output 10/06/17 10/07/17 10/08/17 00:59 00:59 00:59 Intake Total 1659 1047 990 Output Total 6320 1710 1220 Balance -1061 -663 -230 Weight 101.2 kg 99.8 kg 100.1 kg Results Laboratory Results: 10/06/17 06:25 10/06/17 06:25 10/03/17 10/03/17 10/03/17 17:06 17:06 23:20 Creatine Kinase 26 L 29 L CK-MB (CK-2) 0.56 10/03/17 10/04/17 10/04/17 23:20 05:41 05:41 Creatine Kinase 25 L CK-MB (CK-2) 0.81 0.48 Impressions: Head CT 10/04/17 00:00 IMPRESSION: NO ACUTE INTRACRANIAL PROCESS. NO SIGNIFICANT CHANGE FROM PRIOR STUDY. EVIDENCE OF ACUTE STROKE: NO. Renal Ultrasound 10/04/17 00:00 IMPRESSION: NORMAL RENAL AND BLADDER ULTRASOUND. Abdomen Ultrasound 10/06/17 00:00 IMPRESSION: No acute findings. Cholelithiasis. Limitation. 2010 [employer]- All Rights Reserved Chest X-Ray 10/07/17 08:06 IMPRESSION: Interval improvement as noted above. Plan Discharge Plan: Patient to follow-up with Dr. Mcdonald within a week time in the office he will follow-up also with cardiology in [place] Time Spent: Greater than 30 Minutes
== END 2017-10-07 13:52 | disposition home health service (06) | DRG 291 ==
LOC: ER 11:57 → EH 15:53 → INTOOBSV 15:53 → OBSVTOIN 15:53 → 3W 17:56 → 5 19:43 → ICU 10-04 17:01
PROVIDERS: ADMIT Pediatrics; ATTEND Pediatrics
PROC: 5A09357 Assistance with Respiratory Ventilation, Less than 24 Consecutive Hours, Continuous Positive Airway Pressure (ICD-10-PCS; principal; 2017-10-04)
PROC: 3E0F73Z Introduction of Anti-inflammatory into Respiratory Tract, Via Natural or Artificial Opening (ICD-10-PCS; 2017-10-04)
DX: I13.0 Hypertensive heart and chronic kidney disease with heart failure and stage 1 through stage 4 chronic kidney disease, or unspecified chronic kidney disease (principal); J96.21 Acute and chronic respiratory failure with hypoxia; I50.33 Acute on chronic diastolic (congestive) heart failure; J96.22 Acute and chronic respiratory failure with hypercapnia; J18.9 Pneumonia, unspecified organism; N17.9 Acute kidney failure, unspecified; L03.115 Cellulitis of right lower limb; J44.1 Chronic obstructive pulmonary disease with (acute) exacerbation; D69.3 Immune thrombocytopenic purpura; J43.1 Panlobular emphysema; Z78.1 Physical restraint status; I25.10 Atherosclerotic heart disease of native coronary artery without angina pectoris; E11.22 Type 2 diabetes mellitus with diabetic chronic kidney disease; E11.51 Type 2 diabetes mellitus with diabetic peripheral angiopathy without gangrene; E11.65 Type 2 diabetes mellitus with hyperglycemia; K80.20 Calculus of gallbladder without cholecystitis without obstruction; N18.3 Chronic kidney disease, stage 3 (moderate); I48.91 Unspecified atrial fibrillation; G47.30 Sleep apnea, unspecified; N40.0 Benign prostatic hyperplasia without lower urinary tract symptoms; K21.9 Gastro-esophageal reflux disease without esophagitis; M19.90 Unspecified osteoarthritis, unspecified site; E86.0 Dehydration; K59.4 Anal spasm; R27.8 Other lack of coordination; D63.1 Anemia in chronic kidney disease; I25.2 Old myocardial infarction; Z79.01 Long term (current) use of anticoagulants; Z86.711 Personal history of pulmonary embolism; Z89.512 Acquired absence of left leg below knee; Z79.899 Other long term (current) drug therapy; Z79.82 Long term (current) use of aspirin; Z79.4 Long term (current) use of insulin; Z95.810 Presence of automatic (implantable) cardiac defibrillator; Z95.1 Presence of aortocoronary bypass graft; Z91.81 History of falling; Z90.81 Acquired absence of spleen; Z87.891 Personal history of nicotine dependence; Z88.0 Allergy status to penicillin; Z88.3 Allergy status to other anti-infective agents; Z84.1 Family history of disorders of kidney and ureter; Z83.6 Family history of other diseases of the respiratory system; Z82.49 Family history of ischemic heart disease and other diseases of the circulatory system
CPT/HCPCS: 36415; 36600; 70450; 71010; 71045; 76705; 76775; 80048; 80053; 80074; 81001; 82140; 82550; 82553; 82728; 82803; 82962; 83605; 83735; 83880; 84100; 84443; 84484; 85025; 85027; 85610; 85730; 87040; 87086; 93005; 93010; 93306; 94640; 94660; 96365; 96375; 99285; J0696; J0878; J1170; J1815; J1940; J2405; J2920; J2930; J3480; J3490; J7030; J7620

== ENCOUNTER → 2017-10-19 | Outpatient (CLI) | payer MEDICARE ==
[2017-10-19 16:19] LABS: INTERNATIONAL RATION (INR) 1.84; PROTHROMBIN TIME 22.3 SEC (11.4-15.4)
== END ==
LOC: OD 15:06
PROVIDERS: ATTEND Internal Medicine
DX: I82.511 Chronic embolism and thrombosis of right femoral vein (principal); I49.01 Ventricular fibrillation
CPT/HCPCS: 36415; 85610

== ENCOUNTER 2017-10-24 15:50 | Inpatient (IN) | payer MEDICARE ==
[2017-10-24] MEDS ORDERED: ASPIRIN 81 MG TABLET, CHEWABLE PO ONE (16:35)
[2017-10-24] MEDS ORDERED: METHYLPREDNISOLONE INJ 125 MG/2 ML SDV IV ONE (16:36)
[2017-10-24] MEDS ORDERED: ALBUTEROL SULFATE 0.083% NEB 2.5 MG/3 ML AMPUL NEB ONE ×2 (16:36→20:50)
--- NOTE | 2017-10-24 16:51 | ER Document Report ---
ED General - General Mode of Arrival: Medic Information source: Patient TRAVEL OUTSIDE OF THE [place] IN LAST 30 DAYS: No <TAYO PADRON - Last Filed: 10/24/17 23:30> <NATHAN DAWSON - Last Filed: 10/24/17 23:33> - General Chief Complaint: Weakness Stated Complaint: SHORTNESS OF BREATH Time Seen by Provider: 10/24/17 15:59 Notes: Patient is a 77 year old male with a history of CHF, COPD, cardiac stents x1, and NM presents to the emergency department via EMS complaining of multiple symptoms including sudden blurry vision, shortness of breath and right sided weakness onset around 10 am today. Patient states he was in his office when he suddenly felt weak with some blurry vision and felt like his chest filled with fluid. Patient describes his shortness of breath as not being able to take a deep breath. Patient denies any trouble speaking. Patient states he feels better at bedside but also complains of chronic right leg pain. Patient is currently on oxygen, only when driving and at night and 20/ 6 BiPAP at home. (TAOY PADRON) - Related Data Allergies/Adverse Reactions: Penicillins Allergy (Unknown, Verified 05/17/17 10:40) vancomycin [Vancomycin] Adverse Reaction (Verified 08/24/16 13:13) Past Medical History - General Information source: Patient - Social History Smoking Status: Former Smoker Cigarette use (# per day): No Chew tobacco use (# tins/day): No Smoking Education Provided: No Frequency of alcohol use: None Drug Abuse: None Family History: CAD, COPD - Past Medical History Cardiac Medical History: Reports: Hx Atrial Fibrillation, Hx Congestive Heart Failure, Hx Coronary Artery Disease, Hx Heart Attack - x6, Hx Hypercholesterolemia, Hx Hypertension, Hx Peripheral Vascular Disease, Hx Pulmonary Embolism Pulmonary Medical History: Reports: Hx Asthma, Hx Bronchitis, Hx COPD, Hx Sleep Apnea - without c-pap Endocrine Medical History: Reports: Hx Diabetes Mellitus Type 2 Renal/ Medical History: Reports: Hx Benign Prostatic Hyperplasia, Hx Kidney Stones GI Medical History: Reports: Hx Gastroesophageal Reflux Disease Musculoskeltal Medical History: Reports Hx Arthritis Infectious Medical History: Denies: Hx Hepatitis, Hx HIV Past Surgical History: Reports: Hx Abdominal Surgery - AAA, Hx Cardiac Catheterization, Hx Cardiac Surgery - triple bypass, Hx Coronary Artery Bypass Graft - quadruple, Hx Coronary Stent, Hx Internal Defibrillator, Hx Open Heart Surgery - LATE , Hx Orthopedic Surgery - Left BKA, Hx Pacemaker - Immunizations Hx Diphtheria, Pertussis, Tetanus Vaccination: Yes Hx Pneumococcal Vaccination: 07/04/08 <TAYO PADRON - Last Filed: 10/24/17 23:30> Review of Systems - Review of Systems Constitutional: See HPI, Weakness - right sided EENT: See HPI, Blurred vision Cardiovascular: No symptoms reported Respiratory: See HPI Gastrointestinal: No symptoms reported Genitourinary: No symptoms reported Male Genitourinary: No symptoms reported Musculoskeletal: No symptoms reported Skin: No symptoms reported Hematologic/Lymphatic: No symptoms reported Neurological/Psychological: See HPI, Weakness -: Yes All other systems reviewed and negative <TAYO PADRON - Last Filed: 10/24/17 23:30> Physical Exam <TAYO PADRON - Last Filed: 10/24/17 23:30> <NATHAN DAWSON - Last Filed: 10/24/17 23:33> - Vital signs Vitals: Pulse Resp BP Pulse Ox 91 20 103/49 L 90 L 10/24/17 15:52 10/24/17 15:52 10/24/17 15:52 10/24/17 15:52 - Notes Notes: GENERAL: Alert, interacts well. Appears short of breath. HEAD: Normocephalic, atraumatic. EYES: Pupils equal, round, and reactive to light. Extraocular movements intact. ENT: Oral mucosa moist, tongue midline. NECK: Full range of motion. Supple. Trachea midline. LUNGS: Respiratory rales 2/3 of lungs, diffuse expiratory wheezes. Tachypnecic. Wet cough. SOB. HEART: Regular rate and rhythm. No murmurs, gallops, or rubs. ABDOMEN: Soft, non-tender. Non-distended. Bowel sounds present in all 4 quadrants. EXTREMITIES:1+ pititing edema in the RLE, no edema in RUE. Left BKA with prosthesis. Ecchymosis in varying stages across the UE consistent with age. Moves all 4 extremities spontaneously. NEUROLOGICAL: Alert and oriented x3. Normal speech. cranial nerves II through XII grossly intact. Biceps and patellar DTRs 2+ bilaterally. PSYCH: Normal affect, normal mood. (TAYO PADRON) Course - Laboratory Result Diagrams: 10/24/17 16:12 10/24/17 16:12 <TAYO PADRON - Last Filed: 10/24/17 23:30> - Laboratory Result Diagrams: 10/24/17 16:12 10/24/17 16:12 <NATHAN DAWSON - Last Filed: 10/24/17 23:33> - Re-evaluation Re-evalutation: 10/24/17 22:33 CBC reveals chronic anemia at 11.7, no leukocytosis, platelets are low at 61, INR is slightly subtherapeutic at 1.89, chemistries reveal acute on chronic kidney failure with a BUN of 40 and a creatinine of 2.3, this is not significantly changed from his baseline, cardiac enzymes initially negative at 0.021, proBNP elevated at 1370. CT scan of the head reveals chronic changes of atrophy and microvascular ischemia no acute process. Physical exam is not consistent with stroke. He complains that he felt weak on the right-hand side however there is only slightly weakness of the left leg. Chest x-ray reveals no acute process despite hypoxia, crackles and elevated proBNP. Patient is responding well to breathing treatments, BiPAP and Lasix. No indication for antibiotics. is worried the patient may have a pulmonary embolism, patient cannot have a CT angiogram performed due to his elevated creatinine, he cannot lay flat and off for a VQ scan. At this time I find a pulmonary embolism to be less likely as he is responding well to Lasix, BiPAP and albuterol. Patient will be treated for COPD and CHF, if he does not continue to respond then we will consider VQ scan in the morning with assisted respirations. Discussed patient with Dr. Pierre who agrees to admit the patient to his service on the telemetry care unit. (NATHAN DAWSON) - Vital Signs Vital signs: Temp Pulse Resp BP Pulse Ox 91 15 109/52 L 95 10/24/17 15:52 10/24/17 20:01 10/24/17 20:01 10/24/17 20:01 - Laboratory Laboratory results interpreted by me: 10/24/17 10/24/17 10/24/17 16:12 16:12 16:12 RBC 3.82 L Hgb 11.7 L Hct 36.2 L RDW 17.8 H Plt Count 61 L Lymphocytes % 12.7 L PT 22.8 H BUN 40 H Creatinine 2.30 H Est GFR ( Amer) 33 L Est GFR (Non-Af Amer) 28 L Glucose 169 H Calcium 8.1 L Ammonia Creatine Kinase 27 L NT-Pro-B Natriuret Pep Total Protein 5.5 L Albumin 3.1 L 10/24/17 10/24/17 10/24/17 16:12 22:26 22:26 RBC Hgb Hct RDW Plt Count Lymphocytes % PT BUN Creatinine Est GFR ( Amer) Est GFR (Non-Af Amer) Glucose Calcium Ammonia < 8.7 L Creatine Kinase 26 L NT-Pro-B Natriuret Pep 1370 H Total Protein Albumin - EKG Interpretation by Me Additional EKG results interpreted by me: 10/24/17 22:34 EKG reveals atrially paced rhythm at a rate of 60, first-degree AV block due to the pacing, Q waves in 2, 3, aVF significant for old inferior infarct, no ST segment elevations or depressions, there are T-wave inversions in 1 and aVL per my interpretation. (NATHAN DAWSON) Critical Care Note - Critical Care Note Total time excluding time spent on procedures (mins): 55 <NATHAN DAWSON - Last Filed: 10/24/17 23:33> Discharge <TAYO PADRON - Last Filed: 10/24/17 23:30> - Discharge Admitting Provider: [facility], [facility] Unit Admitted: Telemetry <NATHAN DAWSON - Last Filed: 10/24/17 23:33> - Discharge Clinical Impression: Obesity (BMI 30.0-34.9), Chronic kidney disease, stage 3 CHF exacerbation Qualifiers: Congestive heart failure type: unspecified Qualified Code(s): I50.9 - Heart failure, unspecified DM type 2 (diabetes mellitus, type 2) Qualifiers: Diabetes mellitus complication status: with hyperglycemia 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: with truck terminal manager use Qualified Code(s): E11.65 - Type 2 diabetes mellitus with hyperglycemia Respiratory failure Qualifiers: Chronicity: acute on chronic Respiratory failure complication: hypoxia Qualified Code(s): J96.21 - Acute and chronic respiratory failure with hypoxia Acute and chronic respiratory failure Qualifiers: Respiratory failure complication: hypoxia Qualified Code(s): J96.21 - Acute and chronic respiratory failure with hypoxia Condition: Fair Disposition: ADMITTED INPATIENT Scribe Attestation: 10/24/17 23:33 I personally performed the services described in the documentation, reviewed and edited the documentation which was dictated to the scribe in my presence, and it accurately records my words and actions. (NATHAN DAWSON) ED NIH Stroke Scale - NIH Stroke Scale *: 1. NIH scale should be completed with appropriate accompanying assessment tools. *: 2. The NIH should reflect what the patient is capable of doing and should not be coached by the clinician. 1a. Level of Consciousness: 0=Alert;keenly responsive -: 1=Drowsy -: 2=Obtunded -: 3=Coma/unresponsive or reflex to noxious stimuli. 1a. Responses: 0 1b. Orientation Questions: a. What month is it? -: b. How old are you? -: 0=Answers both questions correctly. -: 1=Answers one question correctly or patient is intubated or has orotracheal trauma. -: 2=Answers neither question correctly. 1b. Responses: 0 1c. Response to commands: a. Open and close eyes? -: b. 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 -: Credit is given despite weakness. Demonstration of task is permitted. Substitute command if hands cannot be used. -: 0=Performs both tasks correctly -: 1=Performs one task correctly -: 2=Performs neither task correctly 1c. Responses: 0 2. Gaze: Establish eye contact and instruct patient to "Follow my finger" -: 0=Normal -: 1=Partial gaze palsy. Gaze is abnormal in one or both eyes, but where forced deviation or total gaze paresis is not present. -: 2=Forced deviation or total gaze paresis. 2. Responses: 0 3. Visual Sainz: Sees fingers in all four quadrants. -: 0=No visual loss. -: 1=Partial hemianopsia. -: 2=Complete hemianopsia. -: 3=Bilateral hemianopsia (including Cortical blindness) 3. Responses: 0 4. Facial Movement: Instruct patient to: -: a. Show me your teeth -: b. Raise your eyebrows -: c. Close your eyes -: d. Smile -: 0=Normal symmetrical movement -: 1=Minor paralysis (flattened nasolabial fold, asymmetry on smiling). -: 2=Partial paralysis (total or near total paralysis of lower face). -: 3=Complete paralysis of upper and lower face 4. Responses: 0 5. Motor functions (left arm): Alternate sides and extend each arm with palms down (90 degrees if sitting or 45 degrees for supine). -: 0=No drift;limb holds for full 10 seconds. -: 1=Drift; limb holds but drifts down before full 10 seconds, but does not hit bed. -: 2=Some effort against gravity; limb cannot get to or maintain position. -: 3=No effort against gravity; limb falls. -: 4=No movement. -: UN=Amputation, joint fusion, explain in comments. 5. Responses (left arm): 0 5. Motor Functions (right arm): Alternate sides and extend each arm with palms down (90 degrees if sitting or 45 degrees for supine). -: 0=No drift;limb holds for full 10 seconds. -: 1=Drift; limb holds but drifts down before full 10 seconds, but does not hit bed. -: 2=Some effort against gravity; limb cannot get to or maintain position. -: 3=No effort against gravity; limb falls. -: 4=No movement. -: UN=Amputation, joint fusion, explain in comments. 5. Responses (right arm): 0 6. Motor Functions (left leg): With patient lying supine, alternate sides and extend each leg (30 degrees always while supine). -: 0=No drift, leg holds position for full 5 seconds -: 1=Drift; leg falls before full 5 seconds but does not hit bed. -: 2=Some effort against gravity, leg falls to bed but some effort against gravity. -: 3=No effort against gravity, leg falls to bed immediately. -: 4=No movement. -: UN=Amputation, joint fusion; explain in comments. 6. Responses (left leg): 1 6. Motor Functions (right leg): With patient lying supine, alternate sides and extend each leg (30 degrees always while supine). -: 0=No drift, leg holds position for full 5 seconds -: 1=Drift; leg falls before full 5 seconds but does not hit bed. -: 2=Some effort against gravity, leg falls to bed but some effort against gravity. -: 3=No effort against gravity, leg falls to bed immediately. -: 4=No movement. -: UN=Amputation, joint fusion; explain in comments. 6. Responses (right leg): 0 7. Limb Ataxia: With eyes open instruct patient to: -: a. "Touch your finger to your nose". -: b. "Touch your heel to your vilallpando" -: 0=Absent -: 1=Present in one limb. -: 2=Present in two limbs. -: UN=Amputation or joint fusion; explain in comments. 7. Responses: 0 8. Sensory: Test sensation using pinprick or noxious stimuli. Test as many body parts as possible. -: 0=Normal;no sensory loss -: 1=Mile to moderate sensory loss (patient feels pin prick but is less sharp on affected side). -: 2=Severe or total sensory loss. 8. Responses: 0 9. Best Language: Instruct patient to: -: a. "Describe what you see in this picture." -: b. "Name the items in this picture." -: c. "Read these sentences." -: 0=No aphasia, normal -: 1=Mild to moderate aphasia. -: 2=Severe aphasia -: 3=Mute, global aphasia, no usable speech or auditory comprehension. 9. Responses: 0 10. Articulation, Dysarthia: Instruct patient to: -: "Read these words" or "Repeat these words" -: 0=Normal -: 1=Mild to moderate; patient may slur some words but can be understood without difficulty. -: 2=Severe; patients speech so slurred as to be unintelligible in the absence of dysphasia. -: UN=Intubated or other physical barrier, explain in comments. 10. Responses: 0 11. Extinction or inattention: 0=No abnormality -: 1= Visual, tactile, auditory, spatial, or personal inattention or extinction to bilateral simulation in one or the sensory modalities. -: 2=Profound richard-inattention or richard-inattention to more than one modality; does not recognize own hand. 11. Responses: 0 Total Score: 1 <TAYO PADRON - Last Filed: 10/24/17 23:30> - NIH Stroke Scale When completed:: Protocol *: 1. NIH scale should be completed with appropriate accompanying assessment tools. *: 2. The NIH should reflect what the patient is capable of doing and should not be coached by the clinician. 1a. Level of Consciousness: 0=Alert;keenly responsive -: 1=Drowsy -: 2=Obtunded -: 3=Coma/unresponsive or reflex to noxious stimuli. 1b. Orientation Questions: a. What month is it? -: b. How old are you? -: 0=Answers both questions correctly. -: 1=Answers one question correctly or patient is intubated or has orotracheal trauma. -: 2=Answers neither question correctly. 1c. Response to commands: a. Open and close eyes? -: b. 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 -: Credit is given despite weakness. Demonstration of task is permitted. Substitute command if hands cannot be used. -: 0=Performs both tasks correctly -: 1=Performs one task correctly -: 2=Performs neither task correctly 2. Gaze: Establish eye contact and instruct patient to "Follow my finger" -: 0=Normal -: 1=Partial gaze palsy. Gaze is abnormal in one or both eyes, but where forced deviation or total gaze paresis is not present. -: 2=Forced deviation or total gaze paresis. 3. Visual Sainz: Sees fingers in all four quadrants. -: 0=No visual loss. -: 1=Partial hemianopsia. -: 2=Complete hemianopsia. -: 3=Bilateral hemianopsia (including Cortical blindness) 4. Facial Movement: Instruct patient to: -: a. Show me your teeth -: b. Raise your eyebrows -: c. Close your eyes -: d. Smile -: 0=Normal symmetrical movement -: 1=Minor paralysis (flattened nasolabial fold, asymmetry on smiling). -: 2=Partial paralysis (total or near total paralysis of lower face). -: 3=Complete paralysis of upper and lower face 5. Motor functions (left arm): Alternate sides and extend each arm with palms down (90 degrees if sitting or 45 degrees for supine). -: 0=No drift;limb holds for full 10 seconds. -: 1=Drift; limb holds but drifts down before full 10 seconds, but does not hit bed. -: 2=Some effort against gravity; limb cannot get to or maintain position. -: 3=No effort against gravity; limb falls. -: 4=No movement. -: UN=Amputation, joint fusion, explain in comments. 5. Motor Functions (right arm): Alternate sides and extend each arm with palms down (90 degrees if sitting or 45 degrees for supine). -: 0=No drift;limb holds for full 10 seconds. -: 1=Drift; limb holds but drifts down before full 10 seconds, but does not hit bed. -: 2=Some effort against gravity; limb cannot get to or maintain position. -: 3=No effort against gravity; limb falls. -: 4=No movement. -: UN=Amputation, joint fusion, explain in comments. 6. Motor Functions (left leg): With patient lying supine, alternate sides and extend each leg (30 degrees always while supine). -: 0=No drift, leg holds position for full 5 seconds -: 1=Drift; leg falls before full 5 seconds but does not hit bed. -: 2=Some effort against gravity, leg falls to bed but some effort against gravity. -: 3=No effort against gravity, leg falls to bed immediately. -: 4=No movement. -: UN=Amputation, joint fusion; explain in comments. 6. Responses (left leg): 1 - Likely due to the presence of the prosthesis 6. Motor Functions (right leg): With patient lying supine, alternate sides and extend each leg (30 degrees always while supine). -: 0=No drift, leg holds position for full 5 seconds -: 1=Drift; leg falls before full 5 seconds but does not hit bed. -: 2=Some effort against gravity, leg falls to bed but some effort against gravity. -: 3=No effort against gravity, leg falls to bed immediately. -: 4=No movement. -: UN=Amputation, joint fusion; explain in comments. 7. Limb Ataxia: With eyes open instruct patient to: -: a. "Touch your finger to your nose". -: b. "Touch your heel to your villalpando" -: 0=Absent -: 1=Present in one limb. -: 2=Present in two limbs. -: UN=Amputation or joint fusion; explain in comments. 8. Sensory: Test sensation using pinprick or noxious stimuli. Test as many body parts as possible. -: 0=Normal;no sensory loss -: 1=Mile to moderate sensory loss (patient feels pin prick but is less sharp on affected side). -: 2=Severe or total sensory loss. 9. Best Language: Instruct patient to: -: a. "Describe what you see in this picture." -: b. "Name the items in this picture." -: c. "Read these sentences." -: 0=No aphasia, normal -: 1=Mild to moderate aphasia. -: 2=Severe aphasia -: 3=Mute, global aphasia, no usable speech or auditory comprehension. 10. Articulation, Dysarthia: Instruct patient to: -: "Read these words" or "Repeat these words" -: 0=Normal -: 1=Mild to moderate; patient may slur some words but can be understood without difficulty. -: 2=Severe; patients speech so slurred as to be unintelligible in the absence of dysphasia. -: UN=Intubated or other physical barrier, explain in comments. 11. Extinction or inattention: 0=No abnormality -: 1= Visual, tactile, auditory, spatial, or personal inattention or extinction to bilateral simulation in one or the sensory modalities. -: 2=Profound richard-inattention or richard-inattention to more than one modality; does not recognize own hand. Total Score: 1 <NATHAN DAWSON - Last Filed: 10/24/17 23:33> ED [employer]/Exc Criteria - Date/Time patient last known well: Date/Time: 10/24/2017 10:00 - Date/Time patient arrived in ED: _: 10/24/2017 15:50 - Inclusion Criteria: 1: Patient presented to ED within 3 hours of acute ischemic stroke symptom onset ? -: No 2: Did baseline CT exclude intracranial hemorrhage and/or other risk factors? 3: Is the age of the patient 18 years of age or greater? -: Yes : If any of the above questions are answered "NO" then stop, patient is not a candidate for Alteplase, : If all of the above questions are answered "YES" then continue with Exclusion Criteria. - The patient is: -: Included and is eligible to receive Alteplase. *Initiate bed placement at higher level of care* --: No Reviewd risks & benefits of thrombolytic therapy: I have reviewed the risks and benefits of thrombolytic therapy with the patient and/or his/her family. Yes -: Excluded and not eligible to receive Alteplase for the above exclusions. --: Yes -: Excluded and not eligible to receive Alteplase for other reasons (specify in comments): - Diagnosis of TIA: -: Patient presented with transient symptoms that are now resolved and no other neurologic findings are currently present. List symptoms in comments. -: Patient is NOT a candidate for tPA. -: Yes -: ____(put name in comment) has been consulted for admission and continued evaluation of risk factor assessment. <TAYO PADRON - Last Filed: 10/24/17 23:30> - Inclusion Criteria: 1: Patient presented to ED within 3 hours of acute ischemic stroke symptom onset ? 2: Did baseline CT exclude intracranial hemorrhage and/or other risk factors? -: Yes 3: Is the age of the patient 18 years of age or greater? : If any of the above questions are answered "NO" then stop, patient is not a candidate for Alteplase, : If all of the above questions are answered "YES" then continue with Exclusion Criteria. <NATHAN DAWSON - Last Filed: 10/24/17 23:33> Scribe Documentation - Scribe Written by Robert:: Robert Corbin, 10/24/2017 17:06 acting as scribe for :Joseph Dawson <TAYO PADRON - Last Filed: 10/24/17 23:30>
[2017-10-24] MEDS ORDERED: HYDROCODONE/ACETAMINOPHEN 10-325 MG TABLET PO ONE ×2 (16:57→21:53)
[2017-10-24 17:13] LABS: INTERNATIONAL RATION (INR) 1.89; PROTHROMBIN TIME 22.8 SEC (11.4-15.4)
[2017-10-24 17:22] LABS: ABSOLUTE EOSINOPHILS # (AUTO) 0.1 10^3/uL (0.0-0.6); ABSOLUTE LYMPHOCYTES (AUTO) 0.7 10^3/uL (0.5-4.7); ABSOLUTE MONOCYTES (AUTO) 0.7 10^3/uL (0.1-1.4); ABSOLUTE NEUT (AUTO) 4.1 10^3/uL (1.7-8.2); BASOPHILS % (AUTO) 0.5 % (0-2); EOSINOPHILS % (AUTO) 1.8 % (0-6); HEMATOCRIT 36.2 % (37.9-51.0); HEMOGLOBIN 11.7 g/dL (13.5-17.0); LYMPHOCYTES % (AUTO) 12.7 % (13-45); MEAN CORPUSCULAR HEMOGLOBIN 30.7 pg (27.0-33.4); MEAN CORPUSCULAR HGB CONC 32.4 g/dL (32.0-36.0); MEAN CORPUSCULAR VOLUME 95 fl (80-97); MONOCYTES % (AUTO) 12.5 % (3-13); RED BLOOD COUNT 3.82 10^6/uL (4.35-5.55); RED CELL DISTRIBUTION WIDTH 17.8 % (11.5-14.0); SEGMENTED NEUTROPHILS % (AUTO) 72.5 % (42-78); TOTAL CELLS COUNTED % (AUTO) 100 %; WHITE BLOOD COUNT 5.6 10^3/uL (4.0-10.5)
[2017-10-24 17:25] LABS: ALANINE AMINOTRANSFERASE 35 U/L (21-72); ALBUMIN 3.1 g/dL (3.5-5.0); ALKALINE PHOSPHATASE 79 U/L (38-126); ANION GAP 7 (5-19); ASPARTATE AMINO TRANSFERASE 25 U/L (17-59); BILIRUBIN,DIRECT 0.4 mg/dL (0.0-0.4); BILIRUBIN,TOTAL 0.5 mg/dL (0.2-1.3); BLOOD UREA NITROGEN 40 mg/dL (7-20); CALCIUM 8.1 mg/dL (8.4-10.2); CARBON DIOXIDE 27 mmol/L (22-30); CHLORIDE 106 mmol/L (98-107); CREATINE KINASE 27 U/L (55-170); GLUCOSE 169 mg/dL (75-110); POTASSIUM 4.1 mmol/L (3.6-5.0); SODIUM 140.4 mmol/L (137-145); TOTAL PROTEIN 5.5 g/dL (6.3-8.2)
[2017-10-24 17:37] LABS: CREATINE KINASE MB 1.33 ng/mL (<4.55); TROPONIN I 0.021 ng/mL
[2017-10-24 17:39] LABS: PLATELET COUNT 61 10^3/uL (150-450)
[2017-10-24] MEDS ORDERED: FUROSEMIDE INJ/PF 40 MG/4 ML SDV IV ONE (17:52)
--- NOTE | 2017-10-24 18:04 | RADIOLOGY REPORT (SQ) ---
EXAM DESCRIPTION: CT HEAD WITHOUT COMPLETED DATE/TIME: 10/24/2017 5:46 pm REASON FOR STUDY: blurry vision, weakness COMPARISON: 10/04/2017. TECHNIQUE: Axial images acquired through the brain without intravenous contrast. Images reviewed wi th bone, brain and subdural windows. Images stored on PACS. All CT scanners at this facility use dose modulation, iterative reconstruction, and/or weight based d osing when appropriate to reduce radiation dose to as low as reasonably achievable (ALARA). [facility]: Dose Right [facility]: CareDose [facility]: Dose Right [facility]: Teradose 4D [facility]: FreeBorders RADIATION DOSE: CT Rad equipment meets quality standard of care and radiation dose reduction techniq ues were employed. CTDIvol: 64.6 mGy. DLP: 1163 mGy-cm.mGy. LIMITATIONS: None. FINDINGS: VENTRICLES: Prominent. CEREBRUM: No masses. No hemorrhage. No midline shift. Areas of low density in the white matter mos t likely due to chronic micro-vascular ischemic change. No evidence for acute infarction. CEREBELLUM: No masses. No hemorrhage. No alteration of density. No evidence for acute infarction. EXTRAAXIAL SPACES: Age-related involutional change. No fluid collections. No masses. ORBITS AND GLOBE: No intra- or extraconal masses. Normal contour of globe without masses. CALVARIUM: No fracture. PARANASAL SINUSES: No fluid or mucosal thickening. SOFT TISSUES: No mass or hematoma. OTHER: No other significant finding. IMPRESSION: CHRONIC CHANGES OF ATROPHY AND MICROVASCULAR ISCHEMIA. NO ACUTE PROCESS. EVIDENCE OF ACUTE STROKE: NO. TECHNICAL DOCUMENTATION: JOB ID: [id number] Quality ID # [id number]: Final reports with documentation of one or more dose reduction techniques (e.g., Au tomated exposure control, adjustment of the mA and/or kV according to patient size, use of iterative reconstruction technique) 2010 [employer]- All Rights Reserved
--- NOTE | 2017-10-24 18:17 | RADIOLOGY REPORT (SQ) ---
EXAM DESCRIPTION: CHEST SINGLE VIEW COMPLETED DATE/TIME: 10/24/2017 5:54 pm REASON FOR STUDY: SOB, COPD, CHF COMPARISON: Chest films 10/07/2017, 10/06/2017 EXAM PARAMETERS: NUMBER OF VIEWS: One view. TECHNIQUE: Single frontal radiographic view of the chest acquired. RADIATION DOSE: NA LIMITATIONS: None. FINDINGS: LUNGS AND PLEURA: Chronic scarring in the left lateral costophrenic sulcus. No acute infi ltrates. No pleural effusion or pneumothorax. MEDIASTINUM AND HILAR STRUCTURES: No masses. Contour normal. HEART AND VASCULAR STRUCTURES: Stable marked cardiomegaly. BONES: Osteopenic HARDWARE: Old sternotomy and CABG. Left-sided pacemaker OTHER: No other significant finding. IMPRESSION: NO ACUTE RADIOGRAPHIC FINDING IN THE CHEST. TECHNICAL DOCUMENTATION: JOB ID: [id number] [employer]- All Rights Reserved
--- NOTE | 2017-10-24 19:52 | EKG REPORT ---
SEVERITY:- ABNORMAL ECG - ATRIAL-PACED RHYTHM NONSPECIFIC INTRAVENTRICULAR CONDUCTION DELAY INFERIOR INFARCT, OLD : Confirmed by: Magi Garcia 24-Oct-2017 19:51:05
[2017-10-24] MEDS ORDERED: HYDRALAZINE HCL INJ/PF 20 MG/1 ML SDV IV PRN (22:26)
[2017-10-24] MEDS ORDERED: CHLORPHENIRAMINE MALEATE 4 MG TABLET PO ONE (22:26)
[2017-10-24] MEDS ORDERED: ENALAPRILAT DIHYDRATE INJ/PF 1.25 MG/1 ML SDV IV PRN (22:27)
[2017-10-24] MEDS ORDERED: MAGNESIUM HYDROXIDE SUSP 30 ML UDCUP PO PRN (22:27)
[2017-10-24] MEDS ORDERED: ACETAMINOPHEN 325 MG TABLET PO PRN (22:27)
[2017-10-24] MEDS ORDERED: MAG HYDROX/AL HYDROX/SIMETH SUSP 30 ML UDCUP PO PRN (22:27)
[2017-10-24] MEDS ORDERED: POLYETHYLENE GLYCOL 3350 POWDER 17 GM/1 PACKET PO PRN (22:32)
[2017-10-24] MEDS ORDERED: ZOLPIDEM TARTRATE 5 MG TABLET PO PRN (22:32)
[2017-10-24] MEDS ORDERED: SENNOSIDES/DOCUSATE 8.6-50 MG 1 EACH TABLET PO PRN (22:32)
[2017-10-24] MEDS ORDERED: DEXTROSE 50%-WATER 25 GM/50 ML DISP.SYRIN IV PRN ×2 (22:34)
[2017-10-24] MEDS ORDERED: DEXTROSE 40% GEL 15 GM TUBE PO PRN ×2 (22:34)
[2017-10-24] MEDS ORDERED: GLUCAGON,HUMAN RECOMB 1 MG INJ IM PRN (22:34)
[2017-10-24] MEDS ORDERED: MONTELUKAST SODIUM 10 MG TABLET PO ONE (23:00)
[2017-10-24] MEDS ORDERED: TAMSULOSIN HCL 0.4 MG CAP.SR.24H PO ONE (23:00)
[2017-10-24 23:04] LABS: CREATINE KINASE MB 1.4 ng/mL (<4.55); TROPONIN I 0.018 ng/mL
[2017-10-24] MEDS ORDERED: NITROGLYCERIN 5 MG (0.2 MG/HR) PATCH.TD24 TD ONE (23:15)
[2017-10-24] MEDS ORDERED: DRONEDARONE HYDROCHLORIDE 400 MG TABLET PO ONE (23:15)
[2017-10-24] MEDS ORDERED: FLUTICASONE NASAL SPRAY 50 MCG/SPRY 120 SPRAY/16 GM NASL ONE (23:15)
[2017-10-24] MEDS ORDERED: ATORVASTATIN CALCIUM 40 MG TABLET PO ONE (23:15)
[2017-10-24] MEDS ORDERED: INSULIN GLARGINE,HUM.REC.ANLOG 1,000 UNIT/10 ML UNIT SUBCUT ONE (23:45)
[2017-10-24] MEDS ORDERED: WARFARIN SODIUM 2 MG TABLET PO ONE (23:45)
[2017-10-25] MEDS ORDERED: CHLORPHENIRAMINE MALEATE 4 MG TABLET ONE (00:01)
[2017-10-25] MEDS ORDERED: FLUTICASONE NASAL SPRAY 50 MCG/SPRY 120 SPRAY/16 GM ONE (00:02)
[2017-10-25] MEDS ORDERED: MONTELUKAST SODIUM 10 MG TABLET ONE (00:04)
[2017-10-25] MEDS: HYDRALAZINE HCL 25 MG TABLET PO SCH ×4 (00:45→18:13)
[2017-10-25] MEDS: IPRATROPIUM BROMIDE 0.02% NEB 0.5 MG/2.5 ML AMPUL NEB SCH ×2 (02:03→07:58)
[2017-10-25] MEDS: LEVALBUTEROL HCL NEB 1.25 MG/3 ML AMPUL NEB SCH ×2 (02:03→07:59)
[2017-10-25 04:41] LABS: ABSOLUTE LYMPHOCYTES (AUTO) 0.2 10^3/uL (0.5-4.7); ABSOLUTE MONOCYTES (AUTO) 0.1 10^3/uL (0.1-1.4); ABSOLUTE NEUT (AUTO) 2.7 10^3/uL (1.7-8.2); BASOPHILS % (AUTO) 0.6 % (0-2); EOSINOPHILS % (AUTO) 0.1 % (0-6); HEMATOCRIT 34.4 % (37.9-51.0); HEMOGLOBIN 11.5 g/dL (13.5-17.0); MEAN CORPUSCULAR HEMOGLOBIN 31.3 pg (27.0-33.4); MEAN CORPUSCULAR HGB CONC 33.4 g/dL (32.0-36.0); MEAN CORPUSCULAR VOLUME 94 fl (80-97); RED BLOOD COUNT 3.66 10^6/uL (4.35-5.55); RED CELL DISTRIBUTION WIDTH 18.7 % (11.5-14.0); SEGMENTED NEUTROPHILS % (AUTO) 89.3 % (42-78); TOTAL CELLS COUNTED % (AUTO) 100 %
[2017-10-25 04:58] LABS: ANION GAP 7 (5-19); BLOOD UREA NITROGEN 49 mg/dL (7-20); CALCIUM 8.1 mg/dL (8.4-10.2); CARBON DIOXIDE 30 mmol/L (22-30); CHLORIDE 101 mmol/L (98-107); CREATINE KINASE 25 U/L (55-170); POTASSIUM 4.4 mmol/L (3.6-5.0); SODIUM 138.3 mmol/L (137-145)
[2017-10-25 05:02] LABS: PLATELET COUNT 95 10^3/uL (150-450)
[2017-10-25 05:09] LABS: CREATINE KINASE MB 1.03 ng/mL (<4.55)
[2017-10-25 05:28] LABS: GLUCOSE 490 mg/dL (75-110); TROPONIN I < 0.012 ng/mL
[2017-10-25] MEDS ORDERED: HEPARIN SOD (PORCINE) 5,000 UNIT/ML 1 ML SYRINGE SUBCUT SCH (06:00)
[2017-10-25] MEDS: INSULIN LISPRO 100 UNIT/ML 3 ML VIAL SUBCUT PRN (06:00)
--- NOTE | 2017-10-25 06:36 | PDOC H&P ---
History of Present Illness Admission Date/PCP: 10/24/17 22:39 RUY CARTWRIGHT MD Patient complains of: Generalized weakness and sob History of Present Illness: TRUONG PINK is a 77 year old male with a past medical history of atrial fibrillation on multaq, AICD with pacemaker, peripheral vascular disease, ischemic heart disease status post coronary artery bypass graft, congestive heart failure with ejection fraction of 30-35%, moderate diastolic failure with moderate pulmonary hypertension, obstructive sleep apnea, diabetes, stage 3 chronic kidney disease, posttraumatic splenectomy, Metzger with ascites. Patient presents with recurrent episodes generalized weakness with shortness of breath, muscle jerking all improved after BiPAP use. BNP is elevated, chest x-ray is unchanged. In the emergency room he receives BiPAP and Lasix and referred to the hospitalist for admission. In the emergency room he is asleep wearing BiPAP and cervical spine in flexion with chin on chest. Oxygen saturations of 99% on 30% FiO2 with myoclonus. Family at bedside admit dietary indiscretion and denies complaints of chest pain. Past Medical History Cardiac Medical History: Reports: Atrial Fibrillation, Congestive Heart Failure , Coronary Artery Disease, Myocardial Infarction - x6, Hyperlipidema, Hypertension, Peripheral Vascular Disease, Pulmonary Embolism Pulmonary Medical History: Reports: Asthma, Bronchitis, Chronic Obstructive Pulmonary Disease (COPD), Sleep Apnea - without c-pap Denies: Pneumonia, Respiratory Failure, Tuberculosis Neurological Medical History: Denies: Seizures Endocrine Medical History: Reports: Diabetes Mellitus Type 2 Denies: Hyperthyroidism, Hypothyroidism Renal/ Medical History: Denies: End Stage Renal Disease Malignancy Medical History: Denies: Leukemia, Lung Cancer GI Medical History: Reports: Gastroesophageal Reflux Disease Denies: Hepatitis, Hiatal Hernia Musculoskeltal Medical History: Reports: Arthritis Denies: Fibromyalgia Psychiatric Medical History: Denies: Dementia, Depression Hematology: Denies: Anemia, Hemophilia, Sickle Cell Disease Infectious Medical History: Denies: HIV Past Surgical History Past Surgical History: Reports: Cardiac Catheterization, Coronary Artery Bypass Graft - quadruple, Coronary Stent, Internal Defibrillator, Orthopedic Surgery - Left BKA, Pacemaker Denies: Appendectomy, Cholecystectomy, Gastric Bypass Surgery, Herniorrhaphy , Tonsillectomy Social History Information Source: Friend, H Records Lives with: Family Smoking Status: Former Smoker Frequency of Alcohol Use: None Hx Recreational Drug Use: No Drugs: None Hx Prescription Drug Abuse: No - Advance Directive Resuscitation Status: Full Code Family History Family History: CAD, COPD Parental Family History Reviewed: Yes Children Family History Reviewed: Yes Sibling(s) Family History Reviewed.: Yes Medication/Allergy Home Medications: Albuterol Sulfate [Ventolin HFA MDI 18 GM] 1 puff IH Q6HP PRN 10/03/17 Allopurinol [Zyloprim 300 mg Tablet] 150 mg PO DAILY 10/03/17 Aspirin [Aspirin EC] 81 mg PO DAILY 10/03/17 Atorvastatin Calcium [Lipitor 40 mg Tablet] 40 mg PO QHS 10/03/17 Budesonide/Formoterol Fumarate [Symbicort Hfa 160-4.5 Mcg Inhaler 6 gm] 2 puff IH Q12 10/03/17 Cholecalciferol (Vitamin D3) [Vitamin D3 400 Unit Tablet] 400 unit PO DAILY Dronedarone Hydrochloride [Multaq 400 Mg Tablet] 400 mg PO Q12 10/03/17 Finasteride [Proscar 5 mg Tablet] 5 mg PO QHS 10/03/17 Hydralazine HCl [Apresoline 25 mg Tablet] 25 mg PO Q12 10/03/17 Hydrocodone Bit/Acetaminophen [Hydrocodon-Acetaminophn 10-325] 1 tab PO Q6HP PRN 10/03/17 Isosorbide Mononitrate [Isosorbide Mononitrate ER] 90 mg PO DAILY 10/03/17 Magnesium Oxide [Mag-Ox 400 mg Tablet] 400 mg PO BID 10/03/17 Metoprolol Succinate [Toprol Xl 50 mg Tab.sr] 50 mg PO DAILY 10/03/17 Montelukast Sodium [Singulair 10 mg Tablet] 10 mg PO QHS 10/03/17 Multivitamin [Tab-A-Maris (Multiple Vitamin) Tablet] 1 tab PO DAILY 10/03/17 Omeprazole 20 mg PO DAILY 10/03/17 Polyethylene Glycol 3350 [Miralax Powder 17 gm/Packet] 1 packet PO QPMP PRN Pregabalin [Lyrica] 150 mg PO Q12 10/03/17 Ranolazine [Ranexa 500 mg Tab.sr] 1,000 mg PO Q12 10/03/17 Sennosides/Docusate 8.6-50 mg [Senna Plus Tablet] 1 tab PO BID 10/03/17 Tamsulosin HCl [Flomax 0.4 mg Cap.sr] 0.8 mg PO QHS 10/03/17 Terazosin HCl 1 mg PO DAILY 10/03/17 Tiotropium [place] [Spiriva Handihaler 5 Cap/Kit (18 Mcg/Cap)] 1 cap IH DAILY Warfarin Sodium [Coumadin 2 mg Tablet] 2 mg PO QHS 10/03/17 Zolpidem Tartrate [Ambien 5 mg Tablet] 5 mg PO HSP PRN 10/03/17 Bumetanide [Bumex 2 mg Tablet] 1 tab PO DAILY #30 tab 10/07/17 Doxycycline Hyclate 100 mg PO BID #20 capsule 10/07/17 Insulin Glargine,Hum.rec.anlog [Lantus Solostar] 20 unit SQ QHS #1 insuln.pen Montelukast Sodium [Singulair 10 mg Tablet] 10 mg PO QHS tablet 10/07/17 Prednisone 20 mg PO ASDIR PRN #16 tablet 10/07/17 Allergies/Adverse Reactions: Penicillins Allergy (Unknown, Verified 05/17/17 10:40) vancomycin [Vancomycin] Adverse Reaction (Verified 08/24/16 13:13) Review of Systems ROS unobtainable: Due to mental status Physical Exam Vital Signs: Temp Pulse Resp BP Pulse Ox 91 15 129/59 H 96 10/24/17 15:52 10/25/17 05:00 10/25/17 02:51 10/25/17 05:00 General appearance: PRESENT: cooperative, mild distress, obese Head exam: PRESENT: atraumatic, normocephalic Eye exam: PRESENT: conjunctiva pink, EOMI, PERRLA. ABSENT: scleral icterus Ear exam: PRESENT: normal external ear exam Mouth exam: PRESENT: moist, tongue midline Neck exam: ABSENT: carotid bruit, JVD, lymphadenopathy, thyromegaly Respiratory exam: PRESENT: accessory muscle use, crackles, prolonged expiratory phas, retraction, symmetrical. ABSENT: rhonchi, stridor, wheezes Cardiovascular exam: PRESENT: +S1, +S2 Pulses: PRESENT: normal dorsalis pedis pul Vascular exam: PRESENT: normal capillary refill GI/Abdominal exam: PRESENT: normal bowel sounds, soft. ABSENT: distended, guarding, mass, organolmegaly, rebound, tenderness Rectal exam: PRESENT: deferred Extremities exam: PRESENT: full ROM. ABSENT: calf tenderness, clubbing, pedal edema Neurological exam: PRESENT: alert, awake, oriented to person, oriented to place , oriented to time, oriented to situation, CN II-XII grossly intact. ABSENT: motor sensory deficit Psychiatric exam: PRESENT: appropriate affect, normal mood. ABSENT: homicidal ideation, suicidal ideation Skin exam: PRESENT: dry, intact, warm. ABSENT: cyanosis, rash Results Laboratory Results: 10/25/17 04:28 10/25/17 04:28 10/25/17 10/25/17 04:28 04:28 WBC 3.0 L RBC 3.66 L Hgb 11.5 L Hct 34.4 L MCV 94 MCH 31.3 MCHC 33.4 RDW 18.7 H Plt Count 95 L Seg Neutrophils % 89.3 H Lymphocytes % 8.0 L Monocytes % 2.0 L Eosinophils % 0.1 Basophils % 0.6 Absolute Neutrophils 2.7 Absolute Lymphocytes 0.2 L Absolute Monocytes 0.1 Absolute Eosinophils 0.0 Absolute Basophils 0.0 Sodium 138.3 Potassium 4.4 Chloride 101 Carbon Dioxide 30 Anion Gap 7 BUN 49 H Creatinine 2.72 H Est GFR ( Amer) 27 L Est GFR (Non-Af Amer) 23 L Glucose 490 H* Calcium 8.1 L 10/25/17 10/25/17 04:28 04:28 Creatine Kinase 25 L CK-MB (CK-2) 1.03 Troponin I < 0.012 Impressions: Chest X-Ray 10/24/17 16:35 IMPRESSION: NO ACUTE RADIOGRAPHIC FINDING IN THE CHEST. Head CT 10/24/17 16:35 IMPRESSION: CHRONIC CHANGES OF ATROPHY AND MICROVASCULAR ISCHEMIA. NO ACUTE PROCESS. EVIDENCE OF ACUTE STROKE: NO. Assessment & Plan - Diagnosis (1) Acute and chronic respiratory failure Qualifiers: Respiratory failure complication: hypoxia Qualified Code(s): J96.21 - Acute and chronic respiratory failure with hypoxia Is this a current diagnosis for this admission?: Yes Plan: Complicated by obstructive sleep apnea, COPD and congestive heart failure with pulmonary hypertension. While on BiPAP the patient is with cervical flexion and chin on chest. I suspect this is causing significant airway obstruction, nursing instructed to remove head pillow and keep C-spine extension while asleep. No evidence for acute bronchitis. Continue Flonase, Xopenex and Atrovent. (2) CHF exacerbation Qualifiers: Congestive heart failure type: unspecified Qualified Code(s): I50.9 - Heart failure, unspecified Is this a current diagnosis for this admission?: Yes Plan: Likely secondary to #1 I believe he is currently euvolemic keep diuretics at constant dose. If hypotension develops consider V/Q for evaluation of acute on chronic PE, follow-up cardiac enzymes. May tolerate milligram 250-500 normal saline bolus as needed systolic pressure less than 100. (3) Chronic kidney disease, stage 3 Is this a current diagnosis for this admission?: Yes Plan: Avoid nephrotoxic meds and doses follow-up chemistry. (4) DM type 2 (diabetes mellitus, type 2) Qualifiers: Diabetes mellitus complication status: with hyperglycemia Diabetes mellitus residential insulin use: with watermelon inspector use Qualified Code(s): E11.65 - Type 2 diabetes mellitus with hyperglycemia; Z79.4 - USP (current) use of insulin; Z79.4 - medical terminologist (current) use of insulin; Z79.4 - medical terminologist ( current) use of insulin; Z79.4 - medical terminologist (current) use of insulin Is this a current diagnosis for this admission?: Yes Plan: Dietary indiscretion evidenced by family disclosure and snacks on tray. Outpatient regiment ordered with sliding scale and education. - Time Time Spent: 50 to 70 Minutes - Inpatient Certification Medical Necessity: Need Close Monitoring Due to Risk of Patient Decompensation
[2017-10-25] MEDS ORDERED: FUROSEMIDE INJ/PF 40 MG/4 ML SDV IV SCH (10:00)
[2017-10-25] MEDS: POTASSIUM CHLORIDE 10 MEQ TABLET.SA PO SCH (10:02)
[2017-10-25] MEDS: DOCUSATE SODIUM 100 MG CAPSULE PO SCH (10:03)
[2017-10-25] MEDS: ASPIRIN 81 MG TABLET, ENT COATED PO SCH (10:03)
[2017-10-25] MEDS: HYDROCODONE/ACETAMINOPHEN 10-325 MG TABLET PO PRN ×3 (10:03→18:13)
[2017-10-25] MEDS: METOPROLOL SUCCINATE 50 MG TAB.SR.24H PO SCH (10:04)
[2017-10-25] MEDS: FLUTICASONE NASAL SPRAY 50 MCG/SPRY 120 SPRAY/16 GM NASL SCH ×2 (10:05→22:59)
[2017-10-25] MEDS: FUROSEMIDE INJ/PF 40 MG/4 ML SDV IV SCH (10:05)
[2017-10-25] MEDS: DRONEDARONE HYDROCHLORIDE 400 MG TABLET PO SCH ×2 (10:05→22:54)
--- NOTE | 2017-10-25 11:23 | PDOC PROGRESS REPORT ---
Subjective Progress Note for:: 10/25/17 Subjective:: Patient is seen in rounds. He is resting on the side of the bed eating breakfast. He states he feels better than he did last night when he came in. He states he has been compliant with his CPAP at home. He states he has noticed some increasing edema in his lower extremities because of dietary indiscretions. He denies any chest pain, shortness breath or dyspnea at the present time. Denies any nausea, vomiting or abdominal pain. He denies any fever or chills. He complains of pain in the right lower extremity. He has a small abrasion over the mid calf. He denies any other arthralgias or myalgias. Remaining review of systems are negative. Reason For Visit: COPD EXACERBATION HEART FAILURE EXACERBATION Physical Exam Vital Signs: Temp Pulse Resp BP Pulse Ox 60 17 136/49 H 95 10/25/17 07:59 10/25/17 10:00 10/25/17 06:04 10/25/17 10:00 General appearance: PRESENT: no acute distress, obese, well-developed, well- nourished Head exam: PRESENT: atraumatic, normocephalic Eye exam: PRESENT: conjunctiva pink, EOMI, PERRLA. ABSENT: scleral icterus Ear exam: PRESENT: normal external ear exam Mouth exam: PRESENT: moist, tongue midline Neck exam: ABSENT: carotid bruit, JVD, lymphadenopathy, thyromegaly Respiratory exam: PRESENT: clear to auscultation dipti. ABSENT: rales, rhonchi, wheezes Cardiovascular exam: PRESENT: RRR. ABSENT: diastolic murmur, rubs, systolic murmur Pulses: PRESENT: normal dorsalis pedis pul Vascular exam: PRESENT: normal capillary refill GI/Abdominal exam: PRESENT: normal bowel sounds, soft. ABSENT: distended, guarding, mass, organolmegaly, rebound, tenderness Rectal exam: PRESENT: deferred Extremities exam: PRESENT: full ROM. ABSENT: calf tenderness, clubbing, pedal edema Musculoskeletal exam: PRESENT: ambulatory, tenderness, other - right anterior calf Neurological exam: PRESENT: alert, awake, oriented to person, oriented to place , oriented to time, oriented to situation, CN II-XII grossly intact. ABSENT: motor sensory deficit Psychiatric exam: PRESENT: appropriate affect, normal mood. ABSENT: homicidal ideation, suicidal ideation Skin exam: PRESENT: abrasion - Anterior right calf, dry, intact, warm. ABSENT: cyanosis, rash Results Laboratory Results: 10/25/17 04:28 10/25/17 04:28 10/25/17 10/25/17 04:28 04:28 WBC 3.0 L RBC 3.66 L Hgb 11.5 L Hct 34.4 L MCV 94 MCH 31.3 MCHC 33.4 RDW 18.7 H Plt Count 95 L Seg Neutrophils % 89.3 H Lymphocytes % 8.0 L Monocytes % 2.0 L Eosinophils % 0.1 Basophils % 0.6 Absolute Neutrophils 2.7 Absolute Lymphocytes 0.2 L Absolute Monocytes 0.1 Absolute Eosinophils 0.0 Absolute Basophils 0.0 Sodium 138.3 Potassium 4.4 Chloride 101 Carbon Dioxide 30 Anion Gap 7 BUN 49 H Creatinine 2.72 H Est GFR ( Amer) 27 L Est GFR (Non-Af Amer) 23 L Glucose 490 H* Calcium 8.1 L 10/25/17 10/25/17 04:28 04:28 Creatine Kinase 25 L CK-MB (CK-2) 1.03 Troponin I < 0.012 Impressions: Chest X-Ray 10/24/17 16:35 IMPRESSION: NO ACUTE RADIOGRAPHIC FINDING IN THE CHEST. Head CT 10/24/17 16:35 IMPRESSION: CHRONIC CHANGES OF ATROPHY AND MICROVASCULAR ISCHEMIA. NO ACUTE PROCESS. EVIDENCE OF ACUTE STROKE: NO. Assessment & Plan - Diagnosis (1) Acute on chronic respiratory failure with hypoxia and hypercapnia Is this a current diagnosis for this admission?: Yes Plan: Secondary to indiscretions of diet. He is also noted to sleep with his chin on his chest on BIPAP. He was counseled on repositioning his pillow to prevent tracheal collapse (2) Chronic kidney disease, stage 3 Is this a current diagnosis for this admission?: Yes Plan: Avoid nephrotoxic medications and dosages (3) DM type 2 (diabetes mellitus, type 2) Qualifiers: Diabetes mellitus complication status: with hyperglycemia Diabetes mellitus fpc insulin use: with fpc use Qualified Code(s): E11.65 - Type 2 diabetes mellitus with hyperglycemia; Z79.4 - helper driver (current) use of insulin; Z79.4 - helper driver (current) use of insulin; Z79.4 - care home ( current) use of insulin; Z79.4 - helper driver (current) use of insulin Is this a current diagnosis for this admission?: Yes Plan: Continue home medications and sliding scale coverage (4) Anemia Qualifiers: Other causes of anemia: chronic disease, other Is this a current diagnosis for this admission?: Yes Plan: Secondary to chronic disease presently stable (6) Chronic idiopathic thrombocytopenia Is this a current diagnosis for this admission?: Yes Plan: Stable (7) Constipation Qualifiers: Constipation type: unspecified constipation type Qualified Code(s): K59.00 - Constipation, unspecified Plan: Continue home medications (8) Diabetes type 2, uncontrolled Qualifiers: Diabetes mellitus complication status: with hyperglycemia Diabetes mellitus retail associate manager bilingual insulin use: with retail associate manager bilingual use Qualified Code(s): E11.65 - Type 2 diabetes mellitus with hyperglycemia; Z79.4 - helper driver (current) use of insulin; Z79.4 - helper driver (current) use of insulin; Z79.4 - care home ( current) use of insulin; Z79.4 - care home (current) use of insulin Is this a current diagnosis for this admission?: Yes Plan: Continue home medications and sliding scale coverage (9) Hyperlipidemia Qualifiers: Hyperlipidemia type: unspecified Qualified Code(s): E78.5 - Hyperlipidemia , unspecified Plan: Continue statin (10) Hypertension Qualifiers: Hypertension type: essential hypertension Qualified Code(s): I10 - Essential (primary) hypertension Is this a current diagnosis for this admission?: Yes Plan: Continue home medications he is euvolemic - Time Time Spent with patient: 25-34 minutes Smoking Cessation Education: 3 to 10 minutes Medications reviewed and adjusted accordingly: Yes Anticipated discharge: Home with Homehealth
[2017-10-25] MEDS ORDERED: ALBUTEROL SULFATE HFA (90 MCG/PUFF) 200 PUFF/8.5 GM MDI IH PRN (11:45)
[2017-10-25 11:56] LABS: CREATINE KINASE MB 0.94 ng/mL (<4.55); TROPONIN I 0.013 ng/mL
[2017-10-25] MEDS ORDERED: DOCUSATE SODIUM 100 MG CAPSULE PO ONE (12:29)
[2017-10-25] MEDS: MAGNESIUM OXIDE 400 MG TABLET PO SCH (18:12)
[2017-10-25] MEDS ORDERED: INSULIN GLARGINE,HUM.REC.ANLOG 300 UNIT/3 ML INSULN.PEN SUBCUT SCH (22:00)
[2017-10-25] MEDS: ATORVASTATIN CALCIUM 40 MG TABLET PO SCH (22:53)
[2017-10-25] MEDS: BUDESONIDE/FORMOTEROL 160-4.5 MCG 60 PUFF/6 GM MDI IH SCH (22:53)
[2017-10-25] MEDS: MONTELUKAST SODIUM 10 MG TABLET PO SCH ×2 (22:54→22:59)
[2017-10-25] MEDS: NITROGLYCERIN 5 MG (0.2 MG/HR) PATCH.TD24 TD SCH (22:54)
[2017-10-25] MEDS: FINASTERIDE 5 MG TABLET PO SCH (22:54)
[2017-10-25] MEDS: TAMSULOSIN HCL 0.4 MG CAP.SR.24H PO SCH (22:56)
[2017-10-25] MEDS: PREGABALIN 75 MG CAPSULE PO SCH (22:56)
[2017-10-25] MEDS: WARFARIN SODIUM 2 MG TABLET PO SCH (22:57)
[2017-10-26] MEDS ORDERED: RANOLAZINE 500 MG TAB.SR.12H PO ONE (00:15)
[2017-10-26] MEDS: HYDRALAZINE HCL 25 MG TABLET PO SCH ×5 (01:24→23:57)
[2017-10-26] MEDS: HYDROCODONE/ACETAMINOPHEN 10-325 MG TABLET PO PRN ×4 (01:24→20:23)
[2017-10-26] MEDS: RANOLAZINE 500 MG TAB.SR.12H PO SCH ×3 (01:25→22:59)
[2017-10-26 07:22] LABS: ABSOLUTE LYMPHOCYTES (AUTO) 0.8 10^3/uL (0.5-4.7); ABSOLUTE MONOCYTES (AUTO) 0.7 10^3/uL (0.1-1.4); ABSOLUTE NEUT (AUTO) 6.8 10^3/uL (1.7-8.2); BASOPHILS % (AUTO) 0.1 % (0-2); EOSINOPHILS % (AUTO) 0.3 % (0-6); HEMATOCRIT 34.4 % (37.9-51.0); HEMOGLOBIN 11.7 g/dL (13.5-17.0); MEAN CORPUSCULAR HEMOGLOBIN 31.8 pg (27.0-33.4); MEAN CORPUSCULAR HGB CONC 33.8 g/dL (32.0-36.0); MEAN CORPUSCULAR VOLUME 94 fl (80-97); MONOCYTES % (AUTO) 8.2 % (3-13); RED BLOOD COUNT 3.67 10^6/uL (4.35-5.55); RED CELL DISTRIBUTION WIDTH 17.7 % (11.5-14.0); SEGMENTED NEUTROPHILS % (AUTO) 81.4 % (42-78); TOTAL CELLS COUNTED % (AUTO) 100 %
[2017-10-26 08:17] LABS: PLATELET COUNT 66 10^3/uL (150-450); WHITE BLOOD COUNT 8.3 10^3/uL (4.0-10.5)
[2017-10-26 08:18] LABS: ANISOCYTOSIS 2+; HYPOCHROMASIA 1+; OVALOCYTES 1+; PLATELET COMMENT DECREASED; POIKILOCYTOSIS 1+; POLYCHROMASIA 1+
[2017-10-26] MEDS: MULTIVITAMIN TABLET PO SCH (09:25)
[2017-10-26] MEDS: FUROSEMIDE INJ/PF 40 MG/4 ML SDV IV SCH (09:25)
[2017-10-26] MEDS: INSULIN LISPRO 100 UNIT/ML 3 ML VIAL SUBCUT PRN ×3 (09:26→22:55)
[2017-10-26] MEDS: DOXAZOSIN MESYLATE 1 MG TABLET PO SCH (09:27)
[2017-10-26] MEDS: CHOLECALCIFEROL (D3) 400 UNIT TABLET PO SCH (09:27)
[2017-10-26] MEDS: DRONEDARONE HYDROCHLORIDE 400 MG TABLET PO SCH ×2 (09:28→22:59)
[2017-10-26] MEDS: METOPROLOL SUCCINATE 50 MG TAB.SR.24H PO SCH (09:29)
[2017-10-26] MEDS: ISOSORBIDE MONONITRATE 30 MG TAB.ER.24H PO SCH (09:30)
[2017-10-26] MEDS: IPRATROPIUM/ALBUTEROL 0.5-2.5 MG/3 ML AMPUL NEB PRN ×2 (09:30→21:09)
[2017-10-26] MEDS: ALLOPURINOL 300 MG TABLET PO SCH (09:31)
[2017-10-26] MEDS: PREGABALIN 75 MG CAPSULE PO SCH ×2 (09:32→23:00)
[2017-10-26] MEDS: LANSOPRAZOLE 15 MG TAB.RAP.DR PO SCH (09:32)
[2017-10-26] MEDS: ASPIRIN 81 MG TABLET, ENT COATED PO SCH (09:33)
[2017-10-26] MEDS: DOCUSATE SODIUM 100 MG CAPSULE PO SCH (09:33)
[2017-10-26] MEDS: POTASSIUM CHLORIDE 10 MEQ TABLET.SA PO SCH (09:33)
[2017-10-26] MEDS: MAGNESIUM OXIDE 400 MG TABLET PO SCH ×2 (09:33→18:30)
[2017-10-26] MEDS: BUDESONIDE/FORMOTEROL 160-4.5 MCG 60 PUFF/6 GM MDI IH SCH ×2 (09:34→22:55)
[2017-10-26] MEDS: TIOTROPIUM BROMIDE DPI 5 CAP/KIT (18 MCG/CAP) IH SCH (09:35)
[2017-10-26] MEDS ORDERED: (PENDING PHARMACY ID) (Bumetanide [Bumex 2 Mg Tablet] 2 MG) PO SCH (10:00)
[2017-10-26] MEDS ORDERED: (PENDING PHARMACY ID) (Terazosin Hcl [Terazosin Hcl] 1 MG) PO SCH (10:00)
[2017-10-26] MEDS ORDERED: BUMETANIDE 1 MG TABLET PO SCH (10:00)
[2017-10-26] MEDS: FLUTICASONE NASAL SPRAY 50 MCG/SPRY 120 SPRAY/16 GM NASL SCH ×2 (10:39→23:05)
--- NOTE | 2017-10-26 11:33 | PDOC PROGRESS REPORT ---
Subjective Progress Note for:: 10/26/17 Subjective:: He still feels a bit short of breath. However, he has not been up walking very much since he has been in the hospital. Reason For Visit: COPD EXACERBATION HEART FAILURE EXACERBATION Physical Exam Vital Signs: Temp Pulse Resp BP Pulse Ox 97.7 F 86 16 120/47 L 94 10/26/17 08:26 10/26/17 09:34 10/26/17 09:34 10/26/17 08:26 10/26/17 08:26 General appearance: PRESENT: no acute distress, well-developed, well-nourished Head exam: PRESENT: atraumatic, normocephalic Respiratory exam: PRESENT: crackles, unlabored, wheezes. ABSENT: accessory muscle use Cardiovascular exam: PRESENT: RRR. ABSENT: diastolic murmur, rubs, systolic murmur GI/Abdominal exam: PRESENT: soft Extremities exam: PRESENT: +1 edema Musculoskeletal exam: PRESENT: ambulatory, other - left right leg prosthesis Neurological exam: PRESENT: alert, awake, oriented to person, oriented to place , oriented to time, oriented to situation, CN II-XII grossly intact. ABSENT: motor sensory deficit Psychiatric exam: PRESENT: appropriate affect, normal mood. ABSENT: homicidal ideation, suicidal ideation Skin exam: PRESENT: other - hyperpigmented right calf. small punctate wound anterior right villalpando Results Laboratory Results: 10/26/17 06:37 10/25/17 04:28 10/26/17 06:37 WBC 8.3 D RBC 3.67 L Hgb 11.7 L Hct 34.4 L MCV 94 MCH 31.8 MCHC 33.8 RDW 17.7 H Plt Count 66 L Seg Neutrophils % 81.4 H Lymphocytes % 10.0 L Monocytes % 8.2 Eosinophils % 0.3 Basophils % 0.1 Absolute Neutrophils 6.8 Absolute Lymphocytes 0.8 Absolute Monocytes 0.7 Absolute Eosinophils 0.0 Absolute Basophils 0.0 10/25/17 10/25/17 10/25/17 04:28 04:28 11:04 Creatine Kinase 25 L 22 L CK-MB (CK-2) 1.03 Troponin I < 0.012 10/25/17 11:04 Creatine Kinase CK-MB (CK-2) 0.94 Troponin I 0.013 Impressions: Chest X-Ray 10/24/17 16:35 IMPRESSION: NO ACUTE RADIOGRAPHIC FINDING IN THE CHEST. Head CT 10/24/17 16:35 IMPRESSION: CHRONIC CHANGES OF ATROPHY AND MICROVASCULAR ISCHEMIA. NO ACUTE PROCESS. EVIDENCE OF ACUTE STROKE: NO. Assessment & Plan - Diagnosis (1) Acute and chronic respiratory failure Qualifiers: Respiratory failure complication: hypoxia and hypercapnia Qualified Code(s) : J96.21 - Acute and chronic respiratory failure with hypoxia; J96.22 - Acute and chronic respiratory failure with hypercapnia; J96.22 - Acute and chronic respiratory failure with hypercapnia; J96.22 - Acute and chronic respiratory failure with hypercapnia Is this a current diagnosis for this admission?: Yes Plan: Secondary to COPD exacerbation +/-combined systolic/diastolic heart failure. It is difficult to exclude one or the other. It looks like he is on oral Bumex and IV Lasix each daily. This is redundant. I will discontinue the Bumex, and keep IV Lasix daily. I had like to increase the IV Lasix to twice a day, but it looks like his creatinine is starting to rise. (2) CHF exacerbation Qualifiers: Congestive heart failure type: combined Qualified Code(s): I50.9 - Heart failure, unspecified Is this a current diagnosis for this admission?: Yes Plan: Change IV Lasix daily. TAMARA inhibitor and ARB are contraindicated given his renal failure. Continue Toprol-XL 50 mg daily, hydralazine 25 mg every 6 hours , and Imdur 90 mg daily. (3) COPD exacerbation Is this a current diagnosis for this admission?: Yes Plan: Continue bronchodilators, including inhaled steroids. (4) DM type 2 (diabetes mellitus, type 2) Qualifiers: Diabetes mellitus complication status: with hyperglycemia Diabetes mellitus terminologist insulin use: with terminologist use Qualified Code(s): E11.65 - Type 2 diabetes mellitus with hyperglycemia; Z79.4 - [facility] (current) use of insulin; Z79.4 - [facility] (current) use of insulin; Z79.4 - terminologist ( current) use of insulin; Z79.4 - terminologist (current) use of insulin Is this a current diagnosis for this admission?: Yes Plan: His blood sugars are elevated. Increase Lantus to 22 units at bedtime (5) Chronic kidney disease, stage 3 Is this a current diagnosis for this admission?: Yes Plan: Continue to monitor renal function. His creatinine is mildly elevated compared to yesterday. - Time Time Spent with patient: 25-34 minutes Medications reviewed and adjusted accordingly: Yes Anticipated discharge: Home Within: within 72 hours - Inpatient Certification Medical Necessity: Need For Continuous Telemetry Monitoring, Risk of Complication if Not Cared For in Hospital
[2017-10-26] MEDS ORDERED: FUROSEMIDE INJ/PF 40 MG/4 ML SDV IV SCH (18:00)
[2017-10-26] MEDS: INSULIN GLARGINE,HUM.REC.ANLOG 300 UNIT/3 ML INSULN.PEN SUBCUT SCH (22:53)
[2017-10-26] MEDS: NITROGLYCERIN 5 MG (0.2 MG/HR) PATCH.TD24 TD SCH (22:55)
[2017-10-26] MEDS: FINASTERIDE 5 MG TABLET PO SCH (22:59)
[2017-10-26] MEDS: ATORVASTATIN CALCIUM 40 MG TABLET PO SCH (22:59)
[2017-10-26] MEDS: TAMSULOSIN HCL 0.4 MG CAP.SR.24H PO SCH (23:00)
[2017-10-26] MEDS: WARFARIN SODIUM 2 MG TABLET PO SCH (23:00)
[2017-10-26] MEDS: MONTELUKAST SODIUM 10 MG TABLET PO SCH ×2 (23:00→23:05)
[2017-10-27] MEDS: HYDRALAZINE HCL 25 MG TABLET PO SCH ×3 (05:48→18:08)
[2017-10-27] MEDS: HYDROCODONE/ACETAMINOPHEN 10-325 MG TABLET PO PRN ×3 (07:14→21:18)
[2017-10-27] MEDS: IPRATROPIUM/ALBUTEROL 0.5-2.5 MG/3 ML AMPUL NEB PRN ×2 (09:34→20:26)
--- NOTE | 2017-10-27 09:51 | RADIOLOGY REPORT (SQ) ---
EXAM DESCRIPTION: CHEST PA/LAT COMPLETED DATE/TIME: 10/27/2017 9:33 am REASON FOR STUDY: cough COMPARISON: Chest films 10/24/2017, 10/06/2017, 07/17/2017 CT chest 07/08/2017 EXAM PARAMETERS: NUMBER OF VIEWS: two views TECHNIQUE: Digital Frontal and Lateral radiographic views of the chest acquired. RADIATION DOSE: NA LIMITATIONS: none FINDINGS: LUNGS AND PLEURA: Stable pleural thickening along the left lateral costophrenic angle and hemidiaphragm. No acute infiltrates. No pleural effusion. No pneumothorax. MEDIASTINUM AND HILAR STRUCTURES: No masses or contour abnormalities. HEART AND VASCULAR STRUCTURES: Mild to moderate cardiomegaly. Old sternotomy and CABG BONES: Osteopenic. No acute fractures. HARDWARE: Left-sided dual lead pacemaker. OTHER: No other significant finding. IMPRESSION: No acute changes TECHNICAL DOCUMENTATION: JOB ID: [id number] [employer]- All Rights Reserved
[2017-10-27] MEDS ORDERED: SODIUM CHLORIDE 3% FOR INHALATION 15 ML AMPUL NEB ONE (10:00)
[2017-10-27] MEDS: MULTIVITAMIN TABLET PO SCH (10:14)
[2017-10-27] MEDS: LACTULOSE SYRUP 20 GM/30 ML UDCUP PO SCH ×2 (10:15→21:16)
[2017-10-27] MEDS: FUROSEMIDE INJ/PF 40 MG/4 ML SDV IV SCH (10:15)
[2017-10-27] MEDS: MAGNESIUM OXIDE 400 MG TABLET PO SCH ×2 (10:16→18:08)
[2017-10-27] MEDS: POTASSIUM CHLORIDE 10 MEQ TABLET.SA PO SCH (10:16)
[2017-10-27] MEDS: ALLOPURINOL 300 MG TABLET PO SCH (10:17)
--- NOTE | 2017-10-27 10:17 | PDOC PROGRESS REPORT ---
Subjective Progress Note for:: 10/27/17 Subjective:: He has a more congested cough today. He feels like he cannot cough up phlegm. He has requested a laxative. Reason For Visit: COPD EXACERBATION HEART FAILURE EXACERBATION Physical Exam Vital Signs: Temp Pulse Resp BP Pulse Ox 98.0 F 64 14 124/58 L 96 10/27/17 00:00 10/27/17 07:00 10/27/17 03:55 10/27/17 00:00 10/27/17 00:11 Intake & Output 10/26/17 10/27/17 10/28/17 06:59 06:59 06:59 Intake Total 840 Output Total 2000 Balance -1160 General appearance: PRESENT: obese Head exam: PRESENT: atraumatic, normocephalic Respiratory exam: PRESENT: rales, wheezes Cardiovascular exam: PRESENT: RRR. ABSENT: diastolic murmur, rubs, systolic murmur Extremities exam: PRESENT: +2 edema - Right calf Musculoskeletal exam: PRESENT: ambulatory Neurological exam: PRESENT: alert, awake, oriented to person, oriented to place , oriented to time, oriented to situation, CN II-XII grossly intact. ABSENT: motor sensory deficit Psychiatric exam: PRESENT: appropriate affect, normal mood. ABSENT: homicidal ideation, suicidal ideation Skin exam: PRESENT: dry, intact, warm, other - Hyperpigmented/erythematous right villalpando. ABSENT: cyanosis, rash Results Laboratory Results: 10/26/17 06:37 10/25/17 04:28 10/25/17 10/25/17 10/25/17 04:28 04:28 11:04 Creatine Kinase 25 L 22 L CK-MB (CK-2) 1.03 Troponin I < 0.012 10/25/17 11:04 Creatine Kinase CK-MB (CK-2) 0.94 Troponin I 0.013 Impressions: Head CT 10/24/17 16:35 IMPRESSION: CHRONIC CHANGES OF ATROPHY AND MICROVASCULAR ISCHEMIA. NO ACUTE PROCESS. EVIDENCE OF ACUTE STROKE: NO. Chest X-Ray 10/27/17 00:00 IMPRESSION: No acute changes Assessment & Plan - Diagnosis (1) Acute and chronic respiratory failure Qualifiers: Respiratory failure complication: hypoxia and hypercapnia Qualified Code(s) : J96.21 - Acute and chronic respiratory failure with hypoxia; J96.22 - Acute and chronic respiratory failure with hypercapnia; J96.22 - Acute and chronic respiratory failure with hypercapnia; J96.22 - Acute and chronic respiratory failure with hypercapnia Is this a current diagnosis for this admission?: Yes Plan: Secondary to COPD exacerbation +/-combined systolic/diastolic heart failure. It is difficult to exclude one or the other. He was on oral Bumex and IV Lasix daily. I stopped oral Bumex and increased IV Lasix to twice daily. He continues to diuresis. BMP is pending for today. (2) CHF exacerbation Qualifiers: Congestive heart failure type: combined Qualified Code(s): I50.9 - Heart failure, unspecified Is this a current diagnosis for this admission?: Yes Plan: Continue IV Lasix twice daily. TAMARA inhibitor and ARB are contraindicated given his renal failure. Continue Toprol-XL 50 mg daily, hydralazine 25 mg every 6 hours, and Imdur 90 mg daily. (3) COPD exacerbation Is this a current diagnosis for this admission?: Yes Plan: Continue bronchodilators, including inhaled steroids. Because he still feels congestion and an inability to cough productively, I will add oral prednisone 40 mg daily. I also added hypertonic saline twice daily to his nebulizer treatments. 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 Increased Lantus to 22 units at bedtime 2017. Continue to monitor for now, especially in light of the addition of prednisone. (5) Chronic kidney disease, stage 3 Is this a current diagnosis for this admission?: Yes Plan: Continue to monitor renal function. - Time Time Spent with patient: 15-24 minutes Medications reviewed and adjusted accordingly: Yes Anticipated discharge: Home - Inpatient Certification Medical Necessity: Failure to Improve With Outpatient Therapy, Significant Comorbidiites Make Outpatient Treatment Too Risky, Need Close Monitoring Due to Risk of Patient Decompensation
[2017-10-27] MEDS: ISOSORBIDE MONONITRATE 30 MG TAB.ER.24H PO SCH (10:18)
[2017-10-27] MEDS: ASPIRIN 81 MG TABLET, ENT COATED PO SCH (10:18)
[2017-10-27] MEDS: PREGABALIN 75 MG CAPSULE PO SCH ×2 (10:19→21:17)
[2017-10-27] MEDS: DOCUSATE SODIUM 100 MG CAPSULE PO SCH (10:19)
[2017-10-27] MEDS: PREDNISONE 20 MG TABLET PO SCH (10:19)
[2017-10-27] MEDS: LANSOPRAZOLE 15 MG TAB.RAP.DR PO SCH (10:20)
[2017-10-27] MEDS: DRONEDARONE HYDROCHLORIDE 400 MG TABLET PO SCH ×2 (10:20→21:16)
[2017-10-27] MEDS: DOXAZOSIN MESYLATE 1 MG TABLET PO SCH (10:20)
[2017-10-27] MEDS: RANOLAZINE 500 MG TAB.SR.12H PO SCH ×2 (10:20→21:17)
[2017-10-27] MEDS: CHOLECALCIFEROL (D3) 400 UNIT TABLET PO SCH (10:20)
[2017-10-27] MEDS: TIOTROPIUM BROMIDE DPI 5 CAP/KIT (18 MCG/CAP) IH SCH (10:21)
[2017-10-27] MEDS: BUDESONIDE/FORMOTEROL 160-4.5 MCG 60 PUFF/6 GM MDI IH SCH ×2 (10:21→21:16)
[2017-10-27] MEDS: METOPROLOL SUCCINATE 50 MG TAB.SR.24H PO SCH (11:00)
[2017-10-27] MEDS: FLUTICASONE NASAL SPRAY 50 MCG/SPRY 120 SPRAY/16 GM NASL SCH ×2 (11:00→21:22)
[2017-10-27 12:16] LABS: ANION GAP 7 (5-19); BLOOD UREA NITROGEN 49 mg/dL (7-20); CALCIUM 8.8 mg/dL (8.4-10.2); CARBON DIOXIDE 32 mmol/L (22-30); CHLORIDE 105 mmol/L (98-107); GLUCOSE 137 mg/dL (75-110); POTASSIUM 4.1 mmol/L (3.6-5.0); SODIUM 144.4 mmol/L (137-145)
[2017-10-27] MEDS: INSULIN LISPRO 100 UNIT/ML 3 ML VIAL SUBCUT PRN ×2 (12:35→18:08)
[2017-10-27] MEDS: SODIUM CHLORIDE 3% FOR INHALATION 15 ML AMPUL NEB SCH (20:27)
[2017-10-27] MEDS: ATORVASTATIN CALCIUM 40 MG TABLET PO SCH (21:16)
[2017-10-27] MEDS: FINASTERIDE 5 MG TABLET PO SCH (21:16)
[2017-10-27] MEDS: TAMSULOSIN HCL 0.4 MG CAP.SR.24H PO SCH (21:17)
[2017-10-27] MEDS: NITROGLYCERIN 5 MG (0.2 MG/HR) PATCH.TD24 TD SCH (21:17)
[2017-10-27] MEDS: WARFARIN SODIUM 2 MG TABLET PO SCH (21:17)
[2017-10-27] MEDS: INSULIN GLARGINE,HUM.REC.ANLOG 300 UNIT/3 ML INSULN.PEN SUBCUT SCH (21:18)
[2017-10-27] MEDS: MONTELUKAST SODIUM 10 MG TABLET PO SCH (23:56)
[2017-10-28] MEDS: HYDRALAZINE HCL 25 MG TABLET PO SCH ×4 (00:05→17:39)
[2017-10-28 07:31] LABS: ANION GAP 7 (5-19); BLOOD UREA NITROGEN 52 mg/dL (7-20); CALCIUM 8.2 mg/dL (8.4-10.2); CARBON DIOXIDE 31 mmol/L (22-30); CHLORIDE 103 mmol/L (98-107); GLUCOSE 186 mg/dL (75-110); POTASSIUM 4.5 mmol/L (3.6-5.0); SODIUM 140.8 mmol/L (137-145)
[2017-10-28] MEDS: PREGABALIN 75 MG CAPSULE PO SCH ×2 (09:18→22:14)
[2017-10-28] MEDS: POTASSIUM CHLORIDE 10 MEQ TABLET.SA PO SCH (09:18)
[2017-10-28] MEDS: ASPIRIN 81 MG TABLET, ENT COATED PO SCH (09:18)
[2017-10-28] MEDS: PREDNISONE 20 MG TABLET PO SCH (09:18)
[2017-10-28] MEDS: MAGNESIUM OXIDE 400 MG TABLET PO SCH ×2 (09:19→17:39)
[2017-10-28] MEDS: MULTIVITAMIN TABLET PO SCH (09:19)
[2017-10-28] MEDS: ISOSORBIDE MONONITRATE 30 MG TAB.ER.24H PO SCH (09:19)
[2017-10-28] MEDS: LACTULOSE SYRUP 20 GM/30 ML UDCUP PO SCH ×2 (09:19→22:14)
[2017-10-28] MEDS: LANSOPRAZOLE 15 MG TAB.RAP.DR PO SCH (09:19)
[2017-10-28] MEDS: ALLOPURINOL 300 MG TABLET PO SCH (09:19)
[2017-10-28] MEDS: BUDESONIDE/FORMOTEROL 160-4.5 MCG 60 PUFF/6 GM MDI IH SCH ×2 (09:19→22:14)
[2017-10-28] MEDS: TIOTROPIUM BROMIDE DPI 5 CAP/KIT (18 MCG/CAP) IH SCH (09:20)
[2017-10-28] MEDS: RANOLAZINE 500 MG TAB.SR.12H PO SCH ×2 (09:20→22:14)
[2017-10-28] MEDS: FUROSEMIDE INJ/PF 40 MG/4 ML SDV IV SCH (09:20)
[2017-10-28] MEDS: CHOLECALCIFEROL (D3) 400 UNIT TABLET PO SCH (09:20)
[2017-10-28] MEDS: INSULIN LISPRO 100 UNIT/ML 3 ML VIAL SUBCUT PRN ×4 (09:20→22:54)
[2017-10-28] MEDS: DOXAZOSIN MESYLATE 1 MG TABLET PO SCH (09:20)
[2017-10-28] MEDS: DOCUSATE SODIUM 100 MG CAPSULE PO SCH (09:21)
[2017-10-28] MEDS: DRONEDARONE HYDROCHLORIDE 400 MG TABLET PO SCH ×2 (09:23→22:14)
[2017-10-28] MEDS: SODIUM CHLORIDE 3% FOR INHALATION 15 ML AMPUL NEB SCH ×2 (09:41→20:41)
[2017-10-28] MEDS: HYDROCODONE/ACETAMINOPHEN 10-325 MG TABLET PO PRN ×3 (10:06→22:15)
[2017-10-28] MEDS: METOPROLOL SUCCINATE 50 MG TAB.SR.24H PO SCH (11:36)
[2017-10-28] MEDS: FLUTICASONE NASAL SPRAY 50 MCG/SPRY 120 SPRAY/16 GM NASL SCH ×2 (11:36→22:16)
[2017-10-28] MEDS ORDERED: ACETYLCYSTEINE 10% NEB 400 MG/4 ML VIAL NEB ONE (14:00)
--- NOTE | 2017-10-28 15:52 | PDOC PROGRESS REPORT ---
Subjective Progress Note for:: 10/28/17 Subjective:: He still feels like she cannot completely clear his chest. His bowels are starting to move today. Despite his inability to completely cough, he feels somewhat better than he did yesterday. 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 Patient presented with recurrent episodes generalized weakness with shortness of breath, and muscle jerking all improved after BiPAP use. BNP was elevated. His chest x-ray was unchanged. In the emergency room, he received BiPAP and Lasix. Family at bedside admited dietary indiscretion. He denied chest pain. He has been treated for acute on chronic combined heart failure with IV Lasix. On exam, he wheezes. He is also being treated for a COPD exacerbation. His treatment includes inhaled steroids, and bronchodilators. He is also on systemic steroids. Most recently, hypertonic saline as well as Mucomyst have been added to his nebulizer treatments because of his ongoing chest congestion. He sleeps with BiPAP. He remains on O2 during the day. His renal function has remained stable despite IV diuretics. He is on warfarin. His INR has been subtherapeutic. His warfarin dose may need to be increased. His blood sugars have been elevated, most likely secondary to steroids. Home when no longer wheezing. Physical Exam Vital Signs: Temp Pulse Resp BP Pulse Ox 97.5 F 64 16 135/46 H 97 10/28/17 11:29 10/28/17 14:00 10/28/17 11:29 10/28/17 11:29 10/28/17 11:29 Intake & Output 10/27/17 10/28/17 10/29/17 06:59 06:59 06:59 Intake Total 840 Output Total 1999 Balance -1160 General appearance: PRESENT: obese Head exam: PRESENT: atraumatic, normocephalic Neck exam: ABSENT: carotid bruit, JVD, lymphadenopathy, thyromegaly Respiratory exam: PRESENT: unlabored, wheezes Cardiovascular exam: PRESENT: RRR. ABSENT: diastolic murmur, rubs, systolic murmur GI/Abdominal exam: PRESENT: distended, soft Extremities exam: PRESENT: +2 edema Musculoskeletal exam: PRESENT: ambulatory Neurological exam: PRESENT: alert, awake, oriented to person, oriented to place , oriented to time, oriented to situation, CN II-XII grossly intact. ABSENT: motor sensory deficit Psychiatric exam: PRESENT: appropriate affect, normal mood. ABSENT: homicidal ideation, suicidal ideation Skin exam: PRESENT: other - Right villalpando and calf are erythematous. Results Laboratory Results: 10/26/17 06:37 10/28/17 06:48 10/28/17 06:48 Sodium 140.8 Potassium 4.5 Chloride 103 Carbon Dioxide 31 H Anion Gap 7 BUN 52 H Creatinine 2.02 H Est GFR ( Amer) 39 L Est GFR (Non-Af Amer) 32 L Glucose 186 H Calcium 8.2 L 10/25/17 10/25/17 10/25/17 04:28 04:28 11:04 Creatine Kinase 25 L 22 L CK-MB (CK-2) 1.03 Troponin I < 0.012 10/25/17 11:04 Creatine Kinase CK-MB (CK-2) 0.94 Troponin I 0.013 Impressions: Head CT 10/24/17 16:35 IMPRESSION: CHRONIC CHANGES OF ATROPHY AND MICROVASCULAR ISCHEMIA. NO ACUTE PROCESS. EVIDENCE OF ACUTE STROKE: NO. Chest X-Ray 10/27/17 00:00 IMPRESSION: No acute changes Assessment & Plan - Diagnosis (1) Acute and chronic respiratory failure Qualifiers: Respiratory failure complication: hypoxia and hypercapnia Qualified Code(s) : J96.21 - Acute and chronic respiratory failure with hypoxia; J96.22 - Acute and chronic respiratory failure with hypercapnia; J96.22 - Acute and chronic respiratory failure with hypercapnia; J96.22 - Acute and chronic respiratory failure with hypercapnia Is this a current diagnosis for this admission?: Yes Plan: Secondary to COPD exacerbation +/-combined systolic/diastolic heart failure. It is difficult to exclude one or the other. He was on oral Bumex and IV Lasix daily. I stopped oral Bumex and increased IV Lasix to twice daily, now on just daily to avoid worsening renal function. He continues to diurese. His renal function has remained stable. (2) CHF exacerbation Qualifiers: Congestive heart failure type: combined Qualified Code(s): I50.43 - Acute on chronic combined systolic (congestive) and diastolic (congestive) heart failure Is this a current diagnosis for this admission?: Yes Plan: Continue IV Lasix daily. TAMARA inhibitor and ARB are contraindicated given his renal failure. Continue Toprol-XL 50 mg daily, hydralazine 25 mg every 6 hours , and Imdur 90 mg daily. (3) COPD exacerbation Is this a current diagnosis for this admission?: Yes Plan: Continue bronchodilators, including inhaled steroids. Continue prednisone. I have added Mucomyst to his neb treatments. Continue hypertonic saline nebs as well. (4) DM type 2 (diabetes mellitus, type 2) Qualifiers: Diabetes mellitus complication status: with hyperglycemia Diabetes mellitus chcf insulin use: with terminologist use Qualified Code(s): E11.65 - Type 2 diabetes mellitus with hyperglycemia; Z79.4 - terminal clerk (current) use of insulin; Z79.4 - terminal clerk (current) use of insulin; Z79.4 - terminal clerk ( current) use of insulin; Z79.4 - terminal clerk (current) use of insulin Is this a current diagnosis for this admission?: Yes Plan: His blood sugars are elevated. Increase Lantus to 26 units at bedtime. Continue to monitor for now, especially in light of the addition of prednisone. (5) Chronic kidney disease, stage 3 Is this a current diagnosis for this admission?: Yes Plan: Continue to monitor renal function. (6) Chronic atrial fibrillation Is this a current diagnosis for this admission?: Yes Plan: Atrial paced. On warfarin. - Time Time Spent with patient: 15-24 minutes Medications reviewed and adjusted accordingly: Yes Anticipated discharge: Home - Inpatient Certification Based on my medical assessment, after consideration of the patient's comorbidities, presenting symptoms, or acuity I expect that the services needed warrant INPATIENT care.: Yes I certify that my determination is in accordance with my understanding of Medicare's requirements for reasonable and necessary INPATIENT services [42 CFR 412.3e].: Yes Medical Necessity: Failure to Improve With Outpatient Therapy, Significant Comorbidiites Make Outpatient Treatment Too Risky, Need for Nebulizer Therapy and Monitoring of Response
[2017-10-28] MEDS: IPRATROPIUM/ALBUTEROL 0.5-2.5 MG/3 ML AMPUL NEB PRN (16:44)
[2017-10-28] MEDS: ACETYLCYSTEINE 10% NEB 400 MG/4 ML VIAL NEB SCH (20:41)
[2017-10-28] MEDS: ATORVASTATIN CALCIUM 40 MG TABLET PO SCH (22:14)
[2017-10-28] MEDS: FINASTERIDE 5 MG TABLET PO SCH (22:14)
[2017-10-28] MEDS: NITROGLYCERIN 5 MG (0.2 MG/HR) PATCH.TD24 TD SCH (22:14)
[2017-10-28] MEDS: WARFARIN SODIUM 2 MG TABLET PO SCH (22:15)
[2017-10-28] MEDS: MONTELUKAST SODIUM 10 MG TABLET PO SCH (22:15)
[2017-10-28] MEDS: TAMSULOSIN HCL 0.4 MG CAP.SR.24H PO SCH (22:15)
[2017-10-28] MEDS: INSULIN GLARGINE,HUM.REC.ANLOG 300 UNIT/3 ML INSULN.PEN SUBCUT SCH (22:54)
[2017-10-29] MEDS: HYDRALAZINE HCL 25 MG TABLET PO SCH ×5 (00:53→22:39)
[2017-10-29] MEDS: ACETYLCYSTEINE 10% NEB 400 MG/4 ML VIAL NEB SCH ×4 (01:55→19:53)
[2017-10-29] MEDS: HYDROCODONE/ACETAMINOPHEN 10-325 MG TABLET PO PRN ×3 (07:18→20:31)
[2017-10-29 07:22] LABS: INTERNATIONAL RATION (INR) 2.26; PROTHROMBIN TIME 26.2 SEC (11.4-15.4)
[2017-10-29] MEDS: IPRATROPIUM/ALBUTEROL 0.5-2.5 MG/3 ML AMPUL NEB PRN ×3 (07:42→19:52)
[2017-10-29 07:47] LABS: ANION GAP 5 (5-19); BLOOD UREA NITROGEN 46 mg/dL (7-20); CALCIUM 8.9 mg/dL (8.4-10.2); CARBON DIOXIDE 35 mmol/L (22-30); CHLORIDE 103 mmol/L (98-107); GLUCOSE 126 mg/dL (75-110); POTASSIUM 3.9 mmol/L (3.6-5.0)
[2017-10-29] MEDS: SODIUM CHLORIDE 3% FOR INHALATION 15 ML AMPUL NEB SCH ×2 (08:05→19:56)
[2017-10-29] MEDS: BUDESONIDE/FORMOTEROL 160-4.5 MCG 60 PUFF/6 GM MDI IH SCH ×2 (09:44→22:33)
[2017-10-29] MEDS: LACTULOSE SYRUP 20 GM/30 ML UDCUP PO SCH ×2 (09:45→22:33)
[2017-10-29] MEDS: TIOTROPIUM BROMIDE DPI 5 CAP/KIT (18 MCG/CAP) IH SCH (09:45)
[2017-10-29] MEDS: FUROSEMIDE INJ/PF 40 MG/4 ML SDV IV SCH (09:48)
[2017-10-29] MEDS: PREGABALIN 75 MG CAPSULE PO SCH ×2 (09:50→22:34)
[2017-10-29] MEDS: CHOLECALCIFEROL (D3) 400 UNIT TABLET PO SCH (09:50)
[2017-10-29] MEDS: PREDNISONE 20 MG TABLET PO SCH (09:51)
[2017-10-29] MEDS: MULTIVITAMIN TABLET PO SCH (09:51)
[2017-10-29] MEDS: POTASSIUM CHLORIDE 10 MEQ TABLET.SA PO SCH (09:52)
[2017-10-29] MEDS: DOXAZOSIN MESYLATE 1 MG TABLET PO SCH (09:53)
[2017-10-29] MEDS: LANSOPRAZOLE 15 MG TAB.RAP.DR PO SCH (09:53)
[2017-10-29] MEDS: MAGNESIUM OXIDE 400 MG TABLET PO SCH ×2 (09:53→18:37)
[2017-10-29] MEDS: DRONEDARONE HYDROCHLORIDE 400 MG TABLET PO SCH ×2 (09:53→22:32)
[2017-10-29] MEDS: ISOSORBIDE MONONITRATE 30 MG TAB.ER.24H PO SCH (09:54)
[2017-10-29] MEDS: DOCUSATE SODIUM 100 MG CAPSULE PO SCH (09:54)
[2017-10-29] MEDS: METOPROLOL SUCCINATE 50 MG TAB.SR.24H PO SCH (09:55)
[2017-10-29] MEDS: ASPIRIN 81 MG TABLET, ENT COATED PO SCH (09:55)
[2017-10-29] MEDS: RANOLAZINE 500 MG TAB.SR.12H PO SCH ×2 (09:56→22:33)
[2017-10-29] MEDS: ALLOPURINOL 300 MG TABLET PO SCH (09:56)
[2017-10-29] MEDS: FLUTICASONE NASAL SPRAY 50 MCG/SPRY 120 SPRAY/16 GM NASL SCH ×2 (09:57→22:39)
[2017-10-29] MEDS: INSULIN LISPRO 100 UNIT/ML 3 ML VIAL SUBCUT PRN ×2 (11:53→22:35)
--- NOTE | 2017-10-29 18:15 | PDOC PROGRESS REPORT ---
Subjective Progress Note for:: 10/29/17 Subjective:: Pt states that he is coughing up phlegm. Pt states that he is ready to go home. Pt states that he hope that he is going home in 1 to 2 more days. Nursing reports that pt is congested. Reason For Visit: COPD EXACERBATION HEART FAILURE EXACERBATION Physical Exam Vital Signs: Temp Pulse Resp BP Pulse Ox 98.1 F 59 L 18 113/48 L 100 10/29/17 15:25 10/29/17 15:25 10/29/17 15:25 10/29/17 15:25 10/29/17 15:25 Intake & Output 10/28/17 10/29/17 10/30/17 06:59 06:59 06:59 Intake Total 925 Output Total 550 Balance 375 General appearance: PRESENT: no acute distress, well-developed, well-nourished Head exam: PRESENT: atraumatic, normocephalic Eye exam: PRESENT: conjunctiva pink, EOMI. ABSENT: scleral icterus Ear exam: PRESENT: normal external ear exam Mouth exam: PRESENT: moist, tongue midline Neck exam: ABSENT: carotid bruit, JVD, lymphadenopathy, thyromegaly Respiratory exam: PRESENT: other - + right upper lobe coarse breath sounds, + prolonged exp phase, + accessory muscle use Cardiovascular exam: PRESENT: RRR. ABSENT: diastolic murmur, rubs, systolic murmur Pulses: PRESENT: normal radial pulses Vascular exam: PRESENT: normal capillary refill GI/Abdominal exam: PRESENT: normal bowel sounds, soft. ABSENT: distended, guarding, mass, organolmegaly, rebound, tenderness Rectal exam: PRESENT: deferred Musculoskeletal exam: PRESENT: other - prosthetic device in place. Neurological exam: PRESENT: alert, awake, oriented to person, oriented to place , oriented to time, oriented to situation, CN II-XII grossly intact. ABSENT: motor sensory deficit Psychiatric exam: PRESENT: appropriate affect, normal mood. ABSENT: homicidal ideation, suicidal ideation Skin exam: PRESENT: dry, intact, warm. ABSENT: cyanosis, rash Results Laboratory Results: 10/26/17 06:37 10/29/17 06:42 10/29/17 06:42 Sodium 143.0 Potassium 3.9 Chloride 103 Carbon Dioxide 35 H Anion Gap 5 BUN 46 H Creatinine 1.73 H Est GFR ( Amer) 46 L Est GFR (Non-Af Amer) 38 L Glucose 126 H Calcium 8.9 10/25/17 10/25/17 10/25/17 04:28 04:28 11:04 Creatine Kinase 25 L 22 L CK-MB (CK-2) 1.03 Troponin I < 0.012 10/25/17 11:04 Creatine Kinase CK-MB (CK-2) 0.94 Troponin I 0.013 Impressions: Head CT 10/24/17 16:35 IMPRESSION: CHRONIC CHANGES OF ATROPHY AND MICROVASCULAR ISCHEMIA. NO ACUTE PROCESS. EVIDENCE OF ACUTE STROKE: NO. Chest X-Ray 10/27/17 00:00 IMPRESSION: No acute changes Assessment & Plan - Diagnosis (1) Concern for Pneumonia Is this a current diagnosis for this admission?: Yes Plan: Will check CT of chest. Will place on Rocephin for now. Would add Azithromycin but will react with medications. (2) Acute and chronic respiratory failure Qualifiers: Respiratory failure complication: hypoxia and hypercapnia Qualified Code(s) : J96.21 - Acute and chronic respiratory failure with hypoxia; J96.22 - Acute and chronic respiratory failure with hypercapnia; J96.22 - Acute and chronic respiratory failure with hypercapnia; J96.22 - Acute and chronic respiratory failure with hypercapnia Is this a current diagnosis for this admission?: Yes Plan: Secondary to COPD exacerbation: Will continue breathing treatment and steroids. Will place on Rocephin and Azithromycin. Will order sputum culture. (3) CHF exacerbation Qualifiers: Congestive heart failure type: combined Qualified Code(s): I50.43 - Acute on chronic combined systolic (congestive) and diastolic (congestive) heart failure Is this a current diagnosis for this admission?: Yes Plan: Will continue diuretic. Will check BMP. (4) Chronic atrial fibrillation Is this a current diagnosis for this admission?: Yes Plan: Will continue home meds. Will check INR in am. (5) Chronic kidney disease, stage 3 Is this a current diagnosis for this admission?: Yes Plan: will continue to monitor renal function. 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 (8) DVT prophylaxis Is this a current diagnosis for this admission?: Yes Plan: Pt on warfarin. - Time Time Spent with patient: 15-24 minutes
--- NOTE | 2017-10-29 19:41 | RADIOLOGY REPORT (SQ) ---
EXAM DESCRIPTION: CT CHEST WITHOUT COMPLETED DATE/TIME: 10/29/2017 6:29 pm REASON FOR STUDY: Pneumonia COMPARISON: 07/08/2017 TECHNIQUE: CT scan performed of the chest without intravenous contrast. Images reviewed with lung, soft tissue and bone windows. Reconstructed coronal and sagittal MPR images reviewed. All images st ored on PACS. All CT scanners at this facility use dose modulation, iterative reconstruction, and/or weight based d osing when appropriate to reduce radiation dose to as low as reasonably achievable (ALARA). [facility]: Dose Right [facility]: CareDose [facility]: Dose Right [facility]: Teradose 4D [facility]: [employer] RADIATION DOSE: CT Rad equipment meets quality standard of care and radiation dose reduction techniq ues were employed. CTDIvol: 17.3 mGy. DLP: 744 mGy-cm. mGy. LIMITATIONS: No technical limitations. FINDINGS: LUNGS AND PLEURA: Patchy consolidation in the medial and posterior basilar segments of the left lower lobe. Pleural calcified plaques and thickening are present in the posterior left lung. Similar bilateral pulmonary nodularity. Minimal ground-glass opacities in the right upper lobe. HILAR AND MEDIASTINAL STRUCTURES: No bulky nodes. No obvious thoracic aneurysm. HEART AND VASCULAR STRUCTURES: Moderate atherosclerotic changes. No pericardial effusion. UPPER ABDOMEN: 4.7 cm infrarenal abdominal aortic aneurysm. Limited exam. THYROID AND OTHER SOFT TISSUES: No masses. No adenopathy. BONES: No acute finding. HARDWARE: Cardiac defibrillator. Prior CABG. OTHER: No other significant findings. IMPRESSION: Patchy consolidation in the medial and posterior basilar segments of the left lower lobe . Minimal ground-glass opacities in the right upper lobe. TECHNICAL DOCUMENTATION: JOB ID: [id number] [place]-72 Quality ID # [id number]: Final reports with documentation of one or more dose reduction techniques (e.g., Au tomated exposure control, adjustment of the mA and/or kV according to patient size, use of iterative reconstruction technique) 2010 [employer]- All Rights Reserved
[2017-10-29] MEDS: NITROGLYCERIN 5 MG (0.2 MG/HR) PATCH.TD24 TD SCH (22:33)
[2017-10-29] MEDS: MONTELUKAST SODIUM 10 MG TABLET PO SCH (22:34)
[2017-10-29] MEDS: INSULIN GLARGINE,HUM.REC.ANLOG 300 UNIT/3 ML INSULN.PEN SUBCUT SCH (22:34)
[2017-10-29] MEDS: FINASTERIDE 5 MG TABLET PO SCH (22:34)
[2017-10-29] MEDS: WARFARIN SODIUM 2 MG TABLET PO SCH (22:34)
[2017-10-29] MEDS: ATORVASTATIN CALCIUM 40 MG TABLET PO SCH (22:34)
[2017-10-29] MEDS: TAMSULOSIN HCL 0.4 MG CAP.SR.24H PO SCH (22:34)
[2017-10-30] MEDS: IPRATROPIUM/ALBUTEROL 0.5-2.5 MG/3 ML AMPUL NEB PRN ×3 (01:56→21:47)
[2017-10-30] MEDS: ACETYLCYSTEINE 10% NEB 400 MG/4 ML VIAL NEB SCH ×2 (01:56→08:45)
[2017-10-30 05:25] LABS: PROTHROMBIN TIME 27.4 SEC (11.4-15.4)
[2017-10-30 05:46] LABS: ALANINE AMINOTRANSFERASE 30 U/L (21-72); ALBUMIN 3.2 g/dL (3.5-5.0); ALKALINE PHOSPHATASE 74 U/L (38-126); ANION GAP 9 (5-19); ASPARTATE AMINO TRANSFERASE 16 U/L (17-59); BILIRUBIN,DIRECT 0.3 mg/dL (0.0-0.4); BILIRUBIN,TOTAL 0.7 mg/dL (0.2-1.3); BLOOD UREA NITROGEN 44 mg/dL (7-20); CARBON DIOXIDE 32 mmol/L (22-30); CHLORIDE 102 mmol/L (98-107); GLUCOSE 176 mg/dL (75-110); HEMATOCRIT 36.4 % (37.9-51.0); MAGNESIUM 2.4 mg/dL (1.6-2.3); MEAN CORPUSCULAR HEMOGLOBIN 30.6 pg (27.0-33.4); MEAN CORPUSCULAR HGB CONC 32.9 g/dL (32.0-36.0); MEAN CORPUSCULAR VOLUME 93 fl (80-97); POTASSIUM 4.3 mmol/L (3.6-5.0); RED CELL DISTRIBUTION WIDTH 17.7 % (11.5-14.0); SODIUM 142.5 mmol/L (137-145); WHITE BLOOD COUNT 5.9 10^3/uL (4.0-10.5)
[2017-10-30 06:26] LABS: PLATELET COUNT 78 10^3/uL (150-450)
[2017-10-30 06:29] LABS: ABSOLUTE LYMPHOCYTES# (MANUAL) 0.4 10^3/uL (0.5-4.7); ABSOLUTE MONOCYTES # (MANUAL) 0.6 10^3/uL (0.1-1.4); ABSOLUTE NEUTROPHILS# (MANUAL) 4.8 10^3/uL (1.7-8.2); BAND NEUTROPHILS % (MANUAL) 2 % (3-5); BASOPHILS % (MANUAL) 0 % (0-2); EOSINOPHILS % (MANUAL) 0 % (0-6); LYMPHOCYTES % (MANUAL) 6 % (13-45); MONOCYTES % (MANUAL) 11 % (3-13); SEGMENTED NEUTROPHILS % (MAN) 80 % (42-78); TOTAL CELLS COUNTED 100
[2017-10-30 06:31] LABS: ANISOCYTOSIS 1+
[2017-10-30 06:32] LABS: BURR CELLS SLIGHT; OVALOCYTES SLIGHT; PLATELET COMMENT DECREASED; POIKILOCYTOSIS 1+; TEAR DROP CELLS 1+
[2017-10-30] MEDS: HYDRALAZINE HCL 25 MG TABLET PO SCH ×4 (07:08→22:46)
[2017-10-30] MEDS: HYDROCODONE/ACETAMINOPHEN 10-325 MG TABLET PO PRN ×3 (07:09→19:10)
[2017-10-30] MEDS: SODIUM CHLORIDE 3% FOR INHALATION 15 ML AMPUL NEB SCH (08:40)
[2017-10-30] MEDS: ISOSORBIDE MONONITRATE 30 MG TAB.ER.24H PO SCH (09:43)
[2017-10-30] MEDS: POTASSIUM CHLORIDE 10 MEQ TABLET.SA PO SCH (09:43)
[2017-10-30] MEDS: BUDESONIDE/FORMOTEROL 160-4.5 MCG 60 PUFF/6 GM MDI IH SCH ×2 (09:44→22:49)
[2017-10-30] MEDS: PREDNISONE 20 MG TABLET PO SCH (09:44)
[2017-10-30] MEDS: RANOLAZINE 500 MG TAB.SR.12H PO SCH ×2 (09:44→22:49)
[2017-10-30] MEDS: LACTULOSE SYRUP 20 GM/30 ML UDCUP PO SCH ×2 (09:44→22:48)
[2017-10-30] MEDS: DOCUSATE SODIUM 100 MG CAPSULE PO SCH (09:44)
[2017-10-30] MEDS: TIOTROPIUM BROMIDE DPI 5 CAP/KIT (18 MCG/CAP) IH SCH (09:45)
[2017-10-30] MEDS: MAGNESIUM OXIDE 400 MG TABLET PO SCH ×2 (09:46→17:32)
[2017-10-30] MEDS: DOXAZOSIN MESYLATE 1 MG TABLET PO SCH (09:46)
[2017-10-30] MEDS: CHOLECALCIFEROL (D3) 400 UNIT TABLET PO SCH (09:47)
[2017-10-30] MEDS: MULTIVITAMIN TABLET PO SCH (09:47)
[2017-10-30] MEDS: ALLOPURINOL 300 MG TABLET PO SCH (09:48)
[2017-10-30] MEDS: ASPIRIN 81 MG TABLET, ENT COATED PO SCH (09:48)
[2017-10-30] MEDS: PREGABALIN 75 MG CAPSULE PO SCH ×2 (09:48→22:46)
[2017-10-30] MEDS: DRONEDARONE HYDROCHLORIDE 400 MG TABLET PO SCH ×2 (09:48→22:48)
[2017-10-30] MEDS: METOPROLOL SUCCINATE 50 MG TAB.SR.24H PO SCH (09:48)
[2017-10-30] MEDS: LANSOPRAZOLE 15 MG TAB.RAP.DR PO SCH (09:49)
[2017-10-30] MEDS: FUROSEMIDE INJ/PF 40 MG/4 ML SDV IV SCH (09:50)
[2017-10-30] MEDS ORDERED: CEFTRIAXONE 1 GM/D5W RTU 1 GM/50 ML RTUPB IV SCH (10:00)
[2017-10-30] MEDS ORDERED: CEFTRIAXONE SODIUM 1,000 MG in NORMAL SALINE 50 ML IV SCH (10:00)
[2017-10-30] MEDS: FLUTICASONE NASAL SPRAY 50 MCG/SPRY 120 SPRAY/16 GM NASL SCH ×2 (10:14→22:01)
--- NOTE | 2017-10-30 12:57 | PDOC PROGRESS REPORT ---
Subjective Progress Note for:: 10/30/17 Subjective:: Pt states that he feels very bad. Pt states that he is coughing a lot but not able to product much phlegm. Reason For Visit: COPD EXACERBATION HEART FAILURE EXACERBATION Physical Exam Vital Signs: Temp Pulse Resp BP Pulse Ox 97.5 F 68 18 130/50 H 96 10/30/17 07:55 10/30/17 08:40 10/30/17 08:40 10/30/17 07:55 10/30/17 07:55 Intake & Output 10/29/17 10/30/17 10/31/17 06:59 06:59 06:59 Intake Total 925 5 Output Total 550 Balance 375 5 General appearance: PRESENT: no acute distress, well-developed, well-nourished Head exam: PRESENT: atraumatic, normocephalic Eye exam: PRESENT: conjunctiva pink, EOMI. ABSENT: scleral icterus Ear exam: PRESENT: normal external ear exam Mouth exam: PRESENT: moist, tongue midline Neck exam: ABSENT: carotid bruit, JVD, lymphadenopathy, thyromegaly Respiratory exam: PRESENT: accessory muscle use, crackles - right greater than left., prolonged expiratory phas, rhonchi - right greater than left., wheezes - scant wheezing.. ABSENT: rales Cardiovascular exam: PRESENT: RRR. ABSENT: diastolic murmur, rubs, systolic murmur Pulses: PRESENT: normal dorsalis pedis pul - right ext. Vascular exam: PRESENT: normal capillary refill GI/Abdominal exam: PRESENT: normal bowel sounds, soft. ABSENT: distended, guarding, mass, organolmegaly, rebound, tenderness Rectal exam: PRESENT: deferred Extremities exam: PRESENT: other - left BKA Musculoskeletal exam: PRESENT: other - + left BKA Neurological exam: PRESENT: alert, awake, oriented to person, oriented to place , oriented to time, oriented to situation, CN II-XII grossly intact. ABSENT: motor sensory deficit Psychiatric exam: PRESENT: appropriate affect, normal mood. ABSENT: homicidal ideation, suicidal ideation Skin exam: PRESENT: other - right leg with dressing in place. Results Laboratory Results: 10/30/17 04:41 10/30/17 04:41 10/30/17 10/30/17 04:41 04:41 WBC 5.9 RBC 3.90 L Hgb 12.0 L Hct 36.4 L MCV 93 MCH 30.6 MCHC 32.9 RDW 17.7 H Plt Count 78 L Seg Neutrophils % Not Reportable Lymphocytes % Not Reportable Monocytes % Not Reportable Eosinophils % Not Reportable Basophils % Not Reportable Absolute Neutrophils Not Reportable Absolute Lymphocytes Not Reportable Absolute Monocytes Not Reportable Absolute Eosinophils Not Reportable Absolute Basophils Not Reportable Sodium 142.5 Potassium 4.3 Chloride 102 Carbon Dioxide 32 H Anion Gap 9 BUN 44 H Creatinine 1.76 H Est GFR ( Amer) 45 L Est GFR (Non-Af Amer) 38 L Glucose 176 H Calcium 9.0 Magnesium 2.4 H Total Bilirubin 0.7 AST 16 L ALT 30 Alkaline Phosphatase 74 Total Protein 6.0 L Albumin 3.2 L 10/25/17 10/25/17 10/25/17 04:28 04:28 11:04 Creatine Kinase 25 L 22 L CK-MB (CK-2) 1.03 Troponin I < 0.012 10/25/17 11:04 Creatine Kinase CK-MB (CK-2) 0.94 Troponin I 0.013 Impressions: Head CT 10/24/17 16:35 IMPRESSION: CHRONIC CHANGES OF ATROPHY AND MICROVASCULAR ISCHEMIA. NO ACUTE PROCESS. EVIDENCE OF ACUTE STROKE: NO. Chest X-Ray 10/27/17 00:00 IMPRESSION: No acute changes Chest CT 10/29/17 00:00 IMPRESSION: Patchy consolidation in the medial and posterior basilar segments of the left lower lobe. Minimal ground-glass opacities in the right upper lobe. Assessment & Plan - Diagnosis (1) Acute and chronic respiratory failure Qualifiers: Respiratory failure complication: hypoxia and hypercapnia Qualified Code(s) : J96.21 - Acute and chronic respiratory failure with hypoxia; J96.22 - Acute and chronic respiratory failure with hypercapnia; J96.22 - Acute and chronic respiratory failure with hypercapnia; J96.22 - Acute and chronic respiratory failure with hypercapnia Is this a current diagnosis for this admission?: Yes Plan: Secondary to COPD exacerbation: Will continue breathing treatment and steroids. Will discontinue Rocephin and place patient on cefepime.. Will order sputum culture. (2) Community acquired pneumonia Qualifiers: Laterality: right Is this a current diagnosis for this admission?: Yes Plan: Secondary to gram-negative organism: We will place patient on cefepime. CT findings consistent with pneumonia. (3) CHF exacerbation Qualifiers: Congestive heart failure type: combined Qualified Code(s): I50.43 - Acute on chronic combined systolic (congestive) and diastolic (congestive) heart failure Is this a current diagnosis for this admission?: Yes Plan: Will continue diuretic. Will check BMP. (4) Chronic atrial fibrillation Is this a current diagnosis for this admission?: Yes Plan: Will continue home meds. Will check INR in am. (5) Chronic kidney disease, stage 3 Is this a current diagnosis for this admission?: Yes Plan: will continue to monitor renal function. 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 (8) DVT prophylaxis Is this a current diagnosis for this admission?: Yes Plan: Pt on warfarin. - Time Time Spent with patient: 15-24 minutes
[2017-10-30] MEDS: INSULIN LISPRO 100 UNIT/ML 3 ML VIAL SUBCUT PRN ×3 (13:26→22:20)
[2017-10-30] MEDS: FINASTERIDE 5 MG TABLET PO SCH (22:46)
[2017-10-30] MEDS: WARFARIN SODIUM 2 MG TABLET PO SCH (22:46)
[2017-10-30] MEDS: NITROGLYCERIN 5 MG (0.2 MG/HR) PATCH.TD24 TD SCH (22:46)
[2017-10-30] MEDS: ATORVASTATIN CALCIUM 40 MG TABLET PO SCH (22:46)
[2017-10-30] MEDS: MONTELUKAST SODIUM 10 MG TABLET PO SCH (22:47)
[2017-10-30] MEDS: CEFEPIME 1 GM/D5W RTU 1 GM/50 ML RTUPB IV SCH (22:48)
[2017-10-30] MEDS: TAMSULOSIN HCL 0.4 MG CAP.SR.24H PO SCH (22:48)
[2017-10-30] MEDS: INSULIN GLARGINE,HUM.REC.ANLOG 300 UNIT/3 ML INSULN.PEN SUBCUT SCH (22:49)
[2017-10-31] MEDS: HYDROCODONE/ACETAMINOPHEN 10-325 MG TABLET PO PRN ×4 (01:22→23:53)
[2017-10-31 04:53] LABS: ABSOLUTE LYMPHOCYTES (AUTO) 0.5 10^3/uL (0.5-4.7); ABSOLUTE MONOCYTES (AUTO) 0.8 10^3/uL (0.1-1.4); ABSOLUTE NEUT (AUTO) 5.1 10^3/uL (1.7-8.2); BASOPHILS % (AUTO) 0.4 % (0-2); EOSINOPHILS % (AUTO) 0.2 % (0-6); HEMATOCRIT 31.6 % (37.9-51.0); HEMOGLOBIN 10.4 g/dL (13.5-17.0); LYMPHOCYTES % (AUTO) 7.6 % (13-45); MEAN CORPUSCULAR HEMOGLOBIN 30.9 pg (27.0-33.4); MEAN CORPUSCULAR VOLUME 94 fl (80-97); MONOCYTES % (AUTO) 12.2 % (3-13); RED BLOOD COUNT 3.37 10^6/uL (4.35-5.55); RED CELL DISTRIBUTION WIDTH 17.8 % (11.5-14.0); SEGMENTED NEUTROPHILS % (AUTO) 79.6 % (42-78); TOTAL CELLS COUNTED % (AUTO) 100 %; WHITE BLOOD COUNT 6.4 10^3/uL (4.0-10.5)
[2017-10-31 04:54] LABS: PLATELET COUNT 65 10^3/uL (150-450)
[2017-10-31 04:56] LABS: INTERNATIONAL RATION (INR) 2.18; PROTHROMBIN TIME 25.4 SEC (11.4-15.4)
[2017-10-31 05:07] LABS: ALANINE AMINOTRANSFERASE 29 U/L (21-72); ALBUMIN 2.7 g/dL (3.5-5.0); ALKALINE PHOSPHATASE 57 U/L (38-126); ASPARTATE AMINO TRANSFERASE 13 U/L (17-59); BILIRUBIN,DIRECT 0.2 mg/dL (0.0-0.4); BILIRUBIN,TOTAL 0.5 mg/dL (0.2-1.3); BLOOD UREA NITROGEN 51 mg/dL (7-20); CALCIUM 9.1 mg/dL (8.4-10.2); GLUCOSE 254 mg/dL (75-110); POTASSIUM 4.5 mmol/L (3.6-5.0)
[2017-10-31 05:14] LABS: ANION GAP 5 (5-19); CARBON DIOXIDE 34 mmol/L (22-30); CHLORIDE 100 mmol/L (98-107); SODIUM 138.6 mmol/L (137-145)
[2017-10-31] MEDS: HYDRALAZINE HCL 25 MG TABLET PO SCH ×4 (05:59→23:41)
[2017-10-31] MEDS: INSULIN LISPRO 100 UNIT/ML 3 ML VIAL SUBCUT PRN ×4 (08:29→23:58)
[2017-10-31] MEDS: IPRATROPIUM/ALBUTEROL 0.5-2.5 MG/3 ML AMPUL NEB PRN ×2 (08:45→19:48)
[2017-10-31] MEDS: CEFEPIME 1 GM/D5W RTU 1 GM/50 ML RTUPB IV SCH ×2 (09:45→23:54)
[2017-10-31] MEDS: FUROSEMIDE INJ/PF 40 MG/4 ML SDV IV SCH (09:45)
[2017-10-31] MEDS: ISOSORBIDE MONONITRATE 30 MG TAB.ER.24H PO SCH (09:46)
[2017-10-31] MEDS: LACTULOSE SYRUP 20 GM/30 ML UDCUP PO SCH ×2 (09:46→23:52)
[2017-10-31] MEDS: POTASSIUM CHLORIDE 10 MEQ TABLET.SA PO SCH (09:46)
[2017-10-31] MEDS: ALLOPURINOL 300 MG TABLET PO SCH (09:48)
[2017-10-31] MEDS: ASPIRIN 81 MG TABLET, ENT COATED PO SCH (09:49)
[2017-10-31] MEDS: PREGABALIN 75 MG CAPSULE PO SCH ×2 (09:50→23:50)
[2017-10-31] MEDS: LANSOPRAZOLE 15 MG TAB.RAP.DR PO SCH (09:50)
[2017-10-31] MEDS: PREDNISONE 20 MG TABLET PO SCH (09:50)
[2017-10-31] MEDS: MAGNESIUM OXIDE 400 MG TABLET PO SCH ×2 (09:50→17:03)
[2017-10-31] MEDS: MULTIVITAMIN TABLET PO SCH (09:51)
[2017-10-31] MEDS: METOPROLOL SUCCINATE 50 MG TAB.SR.24H PO SCH (09:51)
[2017-10-31] MEDS: TIOTROPIUM BROMIDE DPI 5 CAP/KIT (18 MCG/CAP) IH SCH (10:05)
[2017-10-31] MEDS: RANOLAZINE 500 MG TAB.SR.12H PO SCH ×2 (10:06→23:53)
[2017-10-31] MEDS: CHOLECALCIFEROL (D3) 400 UNIT TABLET PO SCH (10:06)
[2017-10-31] MEDS: BUDESONIDE/FORMOTEROL 160-4.5 MCG 60 PUFF/6 GM MDI IH SCH ×2 (10:06→23:53)
[2017-10-31] MEDS: DOXAZOSIN MESYLATE 1 MG TABLET PO SCH (10:06)
[2017-10-31] MEDS: DRONEDARONE HYDROCHLORIDE 400 MG TABLET PO SCH ×2 (10:07→23:53)
[2017-10-31] MEDS: DOCUSATE SODIUM 100 MG CAPSULE PO SCH (10:08)
[2017-10-31] MEDS: FLUTICASONE NASAL SPRAY 50 MCG/SPRY 120 SPRAY/16 GM NASL SCH ×2 (10:11→23:59)
--- NOTE | 2017-10-31 11:28 | PDOC PROGRESS REPORT ---
Subjective Progress Note for:: 10/31/17 Subjective:: Pt states that he is still coughing frequently. Reason For Visit: COPD EXACERBATION HEART FAILURE EXACERBATION Physical Exam Vital Signs: Temp Pulse Resp BP Pulse Ox 97.4 F 64 18 178/66 H 100 10/31/17 07:36 10/31/17 08:45 10/31/17 08:45 10/31/17 07:36 10/31/17 07:36 Intake & Output 10/30/17 10/31/17 11/01/17 06:59 06:59 06:59 Intake Total 5 750 Balance 5 750 General appearance: PRESENT: no acute distress, well-developed, well-nourished Head exam: PRESENT: atraumatic, normocephalic Eye exam: PRESENT: conjunctiva pink, EOMI, PERRLA. ABSENT: scleral icterus Ear exam: PRESENT: normal external ear exam Mouth exam: PRESENT: moist, tongue midline Neck exam: ABSENT: carotid bruit, JVD, lymphadenopathy, thyromegaly Respiratory exam: PRESENT: accessory muscle use, crackles, decreased breath sounds, prolonged expiratory phas Cardiovascular exam: PRESENT: RRR. ABSENT: diastolic murmur, rubs, systolic murmur Pulses: PRESENT: normal dorsalis pedis pul, other - left BKA GI/Abdominal exam: PRESENT: normal bowel sounds, soft. ABSENT: distended, guarding, mass, organolmegaly, rebound, tenderness Rectal exam: PRESENT: deferred Extremities exam: PRESENT: full ROM, other - +left BKA. ABSENT: calf tenderness , clubbing, pedal edema Neurological exam: PRESENT: alert, awake, oriented to person, oriented to place , oriented to time, oriented to situation, CN II-XII grossly intact. ABSENT: motor sensory deficit Psychiatric exam: PRESENT: appropriate affect, normal mood. ABSENT: homicidal ideation, suicidal ideation Skin exam: PRESENT: dry, intact, warm. ABSENT: cyanosis, rash Results Laboratory Results: 10/31/17 04:20 10/31/17 04:20 10/31/17 10/31/17 04:20 04:20 WBC 6.4 RBC 3.37 L Hgb 10.4 L Hct 31.6 L MCV 94 MCH 30.9 MCHC 33.0 RDW 17.8 H Plt Count 65 L Seg Neutrophils % 79.6 H Lymphocytes % 7.6 L Monocytes % 12.2 Eosinophils % 0.2 Basophils % 0.4 Absolute Neutrophils 5.1 Absolute Lymphocytes 0.5 Absolute Monocytes 0.8 Absolute Eosinophils 0.0 Absolute Basophils 0.0 Sodium 138.6 Potassium 4.5 Chloride 100 Carbon Dioxide 34 H Anion Gap 5 BUN 51 H Creatinine 1.74 H Est GFR ( Amer) 46 L Est GFR (Non-Af Amer) 38 L Glucose 254 H Calcium 9.1 Total Bilirubin 0.5 AST 13 L ALT 29 Alkaline Phosphatase 57 Total Protein 5.0 L Albumin 2.7 L 10/25/17 10/25/17 10/25/17 04:28 04:28 11:04 Creatine Kinase 25 L 22 L CK-MB (CK-2) 1.03 Troponin I < 0.012 10/25/17 11:04 Creatine Kinase CK-MB (CK-2) 0.94 Troponin I 0.013 Impressions: Head CT 10/24/17 16:35 IMPRESSION: CHRONIC CHANGES OF ATROPHY AND MICROVASCULAR ISCHEMIA. NO ACUTE PROCESS. EVIDENCE OF ACUTE STROKE: NO. Chest X-Ray 10/27/17 00:00 IMPRESSION: No acute changes Chest CT 10/29/17 00:00 IMPRESSION: Patchy consolidation in the medial and posterior basilar segments of the left lower lobe. Minimal ground-glass opacities in the right upper lobe. Assessment & Plan - Diagnosis (1) Acute and chronic respiratory failure Qualifiers: Respiratory failure complication: hypoxia and hypercapnia Qualified Code(s) : J96.21 - Acute and chronic respiratory failure with hypoxia; J96.22 - Acute and chronic respiratory failure with hypercapnia; J96.22 - Acute and chronic respiratory failure with hypercapnia; J96.22 - Acute and chronic respiratory failure with hypercapnia Is this a current diagnosis for this admission?: Yes Plan: Secondary to COPD exacerbation and Community Acquire Pneumonia: Will continue breathing treatment and steroids. Will continue cefepime. Sputum culture pending. (2) Community acquired pneumonia Qualifiers: Laterality: right Is this a current diagnosis for this admission?: Yes Plan: Secondary to gram-negative organism: Will continue cefepime. CT findings consistent with pneumonia. (3) CHF exacerbation Qualifiers: Congestive heart failure type: combined Qualified Code(s): I50.43 - Acute on chronic combined systolic (congestive) and diastolic (congestive) heart failure Is this a current diagnosis for this admission?: Yes Plan: Will continue diuretic. Will check BMP in am. (4) Chronic atrial fibrillation Is this a current diagnosis for this admission?: Yes Plan: Will continue home meds. INR 2.18. Will check INR in am. (5) Chronic kidney disease, stage 3 Is this a current diagnosis for this admission?: Yes Plan: will continue to monitor renal function. (6) DM type 2 (diabetes mellitus, type 2) Qualifiers: Diabetes mellitus complication status: with hyperglycemia Diabetes mellitus manager long term care insulin use: with [facility] use Qualified Code(s): E11.65 - Type 2 diabetes mellitus with hyperglycemia; Z79.4 - jail (current) use of insulin; Z79.4 - terminal carman (current) use of insulin; Z79.4 - terminal carman ( current) use of insulin; Z79.4 - terminal carman (current) use of insulin Is this a current diagnosis for this admission?: Yes Plan: Will continue current medication plan (7) Obesity (BMI 30.0-34.9) Is this a current diagnosis for this admission?: Yes Plan: Encourage dietary changes. (8) DVT prophylaxis Is this a current diagnosis for this admission?: Yes Plan: Pt on warfarin. - Time Time Spent with patient: 15-24 minutes
[2017-10-31] MEDS: ATORVASTATIN CALCIUM 40 MG TABLET PO SCH (23:40)
[2017-10-31] MEDS: FINASTERIDE 5 MG TABLET PO SCH (23:41)
[2017-10-31] MEDS: WARFARIN SODIUM 2 MG TABLET PO SCH (23:41)
[2017-10-31] MEDS: NITROGLYCERIN 5 MG (0.2 MG/HR) PATCH.TD24 TD SCH (23:51)
[2017-10-31] MEDS: MONTELUKAST SODIUM 10 MG TABLET PO SCH (23:51)
[2017-10-31] MEDS: TAMSULOSIN HCL 0.4 MG CAP.SR.24H PO SCH (23:52)
[2017-10-31] MEDS: INSULIN GLARGINE,HUM.REC.ANLOG 300 UNIT/3 ML INSULN.PEN SUBCUT SCH (23:57)
[2017-11-01] MEDS: HYDROCODONE/ACETAMINOPHEN 10-325 MG TABLET PO PRN ×3 (06:33→19:31)
[2017-11-01] MEDS: HYDRALAZINE HCL 25 MG TABLET PO SCH ×4 (06:33→23:26)
[2017-11-01 07:47] LABS: INTERNATIONAL RATION (INR) 2.27; PROTHROMBIN TIME 26.2 SEC (11.4-15.4)
[2017-11-01 07:51] LABS: HEMATOCRIT 34.1 % (37.9-51.0); HEMOGLOBIN 11.1 g/dL (13.5-17.0); MEAN CORPUSCULAR HEMOGLOBIN 30.4 pg (27.0-33.4); MEAN CORPUSCULAR HGB CONC 32.5 g/dL (32.0-36.0); MEAN CORPUSCULAR VOLUME 94 fl (80-97); RED BLOOD COUNT 3.65 10^6/uL (4.35-5.55); WHITE BLOOD COUNT 6.3 10^3/uL (4.0-10.5)
[2017-11-01 07:56] LABS: PLATELET COUNT 90 10^3/uL (150-450)
[2017-11-01] MEDS: IPRATROPIUM/ALBUTEROL 0.5-2.5 MG/3 ML AMPUL NEB PRN (08:05)
[2017-11-01 08:07] LABS: ALANINE AMINOTRANSFERASE 25 U/L (21-72); ALBUMIN 2.7 g/dL (3.5-5.0); ALKALINE PHOSPHATASE 67 U/L (38-126); ANION GAP 7 (5-19); ASPARTATE AMINO TRANSFERASE 13 U/L (17-59); BILIRUBIN,DIRECT 0.3 mg/dL (0.0-0.4); BILIRUBIN,TOTAL 0.5 mg/dL (0.2-1.3); BLOOD UREA NITROGEN 51 mg/dL (7-20); CALCIUM 9.1 mg/dL (8.4-10.2); CARBON DIOXIDE 30 mmol/L (22-30); CHLORIDE 103 mmol/L (98-107); GLUCOSE 232 mg/dL (75-110); MAGNESIUM 2.2 mg/dL (1.6-2.3); POTASSIUM 4.5 mmol/L (3.6-5.0); SODIUM 139.5 mmol/L (137-145); TOTAL PROTEIN 5.1 g/dL (6.3-8.2)
[2017-11-01 08:22] LABS: ABSOLUTE LYMPHOCYTES# (MANUAL) 0.8 10^3/uL (0.5-4.7); ABSOLUTE MONOCYTES # (MANUAL) 0.6 10^3/uL (0.1-1.4); ABSOLUTE NEUTROPHILS# (MANUAL) 4.9 10^3/uL (1.7-8.2); BAND NEUTROPHILS % (MANUAL) 1 % (3-5); BASOPHILS % (MANUAL) 0 % (0-2); EOSINOPHILS % (MANUAL) 2 % (0-6); LYMPHOCYTES % (MANUAL) 11 % (13-45); METAMYELOCYTES % (MANUAL) 1 % (0); MONOCYTES % (MANUAL) 9 % (3-13); NUCLEATED RED BLOOD CELLS 1 /100 WBC (0); SEGMENTED NEUTROPHILS % (MAN) 73 % (42-78); TOTAL CELLS COUNTED 100
[2017-11-01 08:24] LABS: ANISOCYTOSIS 1+
[2017-11-01 08:25] LABS: MYELOCYTES % (MANUAL) 2 % (0); PLATELET COMMENT DECREASED
[2017-11-01] MEDS: INSULIN LISPRO 100 UNIT/ML 3 ML VIAL SUBCUT PRN ×4 (10:07→22:56)
[2017-11-01] MEDS: FUROSEMIDE INJ/PF 40 MG/4 ML SDV IV SCH (10:08)
[2017-11-01] MEDS: LACTULOSE SYRUP 20 GM/30 ML UDCUP PO SCH ×2 (10:09→23:03)
[2017-11-01] MEDS: ISOSORBIDE MONONITRATE 30 MG TAB.ER.24H PO SCH (10:09)
[2017-11-01] MEDS: ALLOPURINOL 300 MG TABLET PO SCH (10:10)
[2017-11-01] MEDS: PREDNISONE 20 MG TABLET PO SCH (10:12)
[2017-11-01] MEDS: METOPROLOL SUCCINATE 50 MG TAB.SR.24H PO SCH (10:13)
[2017-11-01] MEDS: MULTIVITAMIN TABLET PO SCH (10:13)
[2017-11-01] MEDS: LANSOPRAZOLE 15 MG TAB.RAP.DR PO SCH (10:13)
[2017-11-01] MEDS: CHOLECALCIFEROL (D3) 400 UNIT TABLET PO SCH (10:14)
[2017-11-01] MEDS: MAGNESIUM OXIDE 400 MG TABLET PO SCH ×2 (10:14→18:30)
[2017-11-01] MEDS: POTASSIUM CHLORIDE 10 MEQ TABLET.SA PO SCH (10:14)
[2017-11-01] MEDS: ASPIRIN 81 MG TABLET, ENT COATED PO SCH (10:14)
[2017-11-01] MEDS: CEFEPIME 1 GM/D5W RTU 1 GM/50 ML RTUPB IV SCH ×2 (10:15→22:57)
[2017-11-01] MEDS: RANOLAZINE 500 MG TAB.SR.12H PO SCH ×2 (10:15→23:04)
[2017-11-01] MEDS: BUDESONIDE/FORMOTEROL 160-4.5 MCG 60 PUFF/6 GM MDI IH SCH ×2 (10:17→22:56)
[2017-11-01] MEDS: TIOTROPIUM BROMIDE DPI 5 CAP/KIT (18 MCG/CAP) IH SCH (10:17)
[2017-11-01] MEDS: DRONEDARONE HYDROCHLORIDE 400 MG TABLET PO SCH ×2 (10:18→22:57)
[2017-11-01] MEDS: DOXAZOSIN MESYLATE 1 MG TABLET PO SCH (10:18)
[2017-11-01] MEDS: PREGABALIN 75 MG CAPSULE PO SCH ×2 (10:19→23:04)
[2017-11-01] MEDS: FLUTICASONE NASAL SPRAY 50 MCG/SPRY 120 SPRAY/16 GM NASL SCH ×2 (10:27→23:13)
[2017-11-01] MEDS: DOCUSATE SODIUM 100 MG CAPSULE PO SCH (10:27)
--- NOTE | 2017-11-01 13:05 | PDOC PROGRESS REPORT ---
Subjective Progress Note for:: 11/01/17 Subjective:: Pt seen early this morning. Pt states that he is starting to feel better. Pt states that he has not been eating all of those snacks in his room. Reason For Visit: COPD EXACERBATION HEART FAILURE EXACERBATION Physical Exam Vital Signs: Temp Pulse Resp BP Pulse Ox 97.4 F 68 17 158/61 H 97 11/01/17 03:33 11/01/17 08:07 11/01/17 08:07 11/01/17 03:33 11/01/17 08:07 Intake & Output 10/31/17 11/01/17 11/02/17 06:59 06:59 06:59 Intake Total 750 812 Balance 750 812 Weight 111 kg General appearance: PRESENT: no acute distress, well-developed, well-nourished Head exam: PRESENT: atraumatic, normocephalic Eye exam: PRESENT: conjunctiva pink, PERRLA Ear exam: PRESENT: normal external ear exam Mouth exam: PRESENT: moist, tongue midline Neck exam: ABSENT: carotid bruit, JVD, lymphadenopathy, thyromegaly Respiratory exam: PRESENT: crackles, other - + coarse breath sounds greater on Left side than right side. Cardiovascular exam: PRESENT: RRR. ABSENT: diastolic murmur, rubs, systolic murmur Pulses: PRESENT: normal carotid pulses GI/Abdominal exam: PRESENT: normal bowel sounds, soft. ABSENT: distended, guarding, mass, organolmegaly, rebound, tenderness Rectal exam: PRESENT: deferred Extremities exam: PRESENT: other - Left BKA, Musculoskeletal exam: PRESENT: full ROM, other - Left BKA Neurological exam: PRESENT: alert, awake, oriented to person, oriented to place , oriented to time, CN II-XII grossly intact Skin exam: PRESENT: dry, intact, warm. ABSENT: cyanosis, rash Results Laboratory Results: 11/01/17 06:45 11/01/17 06:45 11/01/17 11/01/17 06:45 06:45 WBC 6.3 RBC 3.65 L Hgb 11.1 L Hct 34.1 L MCV 94 MCH 30.4 MCHC 32.5 RDW 18.0 H Plt Count 90 L Seg Neutrophils % Not Reportable Lymphocytes % Not Reportable Monocytes % Not Reportable Eosinophils % Not Reportable Basophils % Not Reportable Absolute Neutrophils Not Reportable Absolute Lymphocytes Not Reportable Absolute Monocytes Not Reportable Absolute Eosinophils Not Reportable Absolute Basophils Not Reportable Sodium 139.5 Potassium 4.5 Chloride 103 Carbon Dioxide 30 Anion Gap 7 BUN 51 H Creatinine 1.76 H Est GFR ( Amer) 45 L Est GFR (Non-Af Amer) 38 L Glucose 232 H Calcium 9.1 Magnesium 2.2 Total Bilirubin 0.5 AST 13 L ALT 25 Alkaline Phosphatase 67 Total Protein 5.1 L Albumin 2.7 L 10/25/17 10/25/17 10/25/17 04:28 04:28 11:04 Creatine Kinase 25 L 22 L CK-MB (CK-2) 1.03 Troponin I < 0.012 10/25/17 11:04 Creatine Kinase CK-MB (CK-2) 0.94 Troponin I 0.013 Impressions: Head CT 10/24/17 16:35 IMPRESSION: CHRONIC CHANGES OF ATROPHY AND MICROVASCULAR ISCHEMIA. NO ACUTE PROCESS. EVIDENCE OF ACUTE STROKE: NO. Chest X-Ray 10/27/17 00:00 IMPRESSION: No acute changes Chest CT 10/29/17 00:00 IMPRESSION: Patchy consolidation in the medial and posterior basilar segments of the left lower lobe. Minimal ground-glass opacities in the right upper lobe. Assessment & Plan - Diagnosis (1) Acute and chronic respiratory failure Qualifiers: Respiratory failure complication: hypoxia and hypercapnia Qualified Code(s) : J96.21 - Acute and chronic respiratory failure with hypoxia; J96.22 - Acute and chronic respiratory failure with hypercapnia; J96.22 - Acute and chronic respiratory failure with hypercapnia; J96.22 - Acute and chronic respiratory failure with hypercapnia Is this a current diagnosis for this admission?: Yes Plan: Secondary to COPD exacerbation and Community Acquire Pneumonia: Will continue breathing treatment and steroids. Will continue cefepime. 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 Pt has vancomycin allergy. Sputum Culture pending. (2) Community acquired pneumonia Qualifiers: Laterality: right Is this a current diagnosis for this admission?: Yes Plan: Secondary to gram-negative organism with Possible MRSA component.: Will continue cefepime and will add Doxycycline. CT findings consistent with pneumonia. (3) CHF exacerbation Qualifiers: Congestive heart failure type: combined Qualified Code(s): I50.43 - Acute on chronic combined systolic (congestive) and diastolic (congestive) heart failure Is this a current diagnosis for this admission?: Yes Plan: We will give additional Lasix due to patient not being compliant with diet. Will check BMP. (4) Chronic atrial fibrillation Is this a current diagnosis for this admission?: Yes Plan: Will continue home meds. (5) Chronic kidney disease, stage 3 Is this a current diagnosis for this admission?: Yes Plan: will continue to monitor renal function. (6) DM type 2 (diabetes mellitus, type 2) Qualifiers: Diabetes mellitus complication status: with hyperglycemia Diabetes mellitus [facility] insulin use: with predatory animal exterminator use Qualified Code(s): E11.65 - Type 2 diabetes mellitus with hyperglycemia; Z79.4 - retirement (current) use of insulin; Z79.4 - terminal system operator (current) use of insulin; Z79.4 - terminal system operator ( current) use of insulin; Z79.4 - retirement (current) use of insulin Is this a current diagnosis for this admission?: Yes Plan: Will increase Lantus 45 units and add Humalog 3 units SQ with meals. Will continue SSI. (7) Obesity (BMI 30.0-34.9) Is this a current diagnosis for this admission?: Yes Plan: Encourage dietary changes. (8) DVT prophylaxis Is this a current diagnosis for this admission?: Yes Plan: Pt on warfarin. - Time Time Spent with patient: 25-34 minutes
[2017-11-01] MEDS ORDERED: FUROSEMIDE INJ/PF 20 MG/2 ML SDV IV ONE (13:30)
[2017-11-01] MEDS: INSULIN LISPRO 100 UNIT/ML 3 ML VIAL SUBCUT SCH (18:28)
[2017-11-01] MEDS: DOXYCYCLINE HYCLATE 100 MG in DEXTROSE 5%-WATER 250 ML IV SCH (18:30)
[2017-11-01] MEDS ORDERED: INSULIN GLARGINE,HUM.REC.ANLOG 300 UNIT/3 ML INSULN.PEN SUBCUT SCH (22:00)
[2017-11-01] MEDS: ATORVASTATIN CALCIUM 40 MG TABLET PO SCH (22:56)
[2017-11-01] MEDS: NITROGLYCERIN 5 MG (0.2 MG/HR) PATCH.TD24 TD SCH (23:03)
[2017-11-01] MEDS: INSULIN GLARGINE,HUM.REC.ANLOG 300 UNIT/3 ML INSULN.PEN SUBCUT SCH (23:03)
[2017-11-01] MEDS: FINASTERIDE 5 MG TABLET PO SCH (23:03)
[2017-11-01] MEDS: MONTELUKAST SODIUM 10 MG TABLET PO SCH (23:03)
[2017-11-01] MEDS: TAMSULOSIN HCL 0.4 MG CAP.SR.24H PO SCH (23:04)
[2017-11-01] MEDS: WARFARIN SODIUM 2 MG TABLET PO SCH (23:04)
[2017-11-02] MEDS: DOXYCYCLINE HYCLATE 100 MG in DEXTROSE 5%-WATER 250 ML IV SCH ×2 (06:11→17:24)
[2017-11-02] MEDS: HYDRALAZINE HCL 25 MG TABLET PO SCH ×3 (06:11→17:21)
[2017-11-02] MEDS: HYDROCODONE/ACETAMINOPHEN 10-325 MG TABLET PO PRN ×3 (06:13→19:29)
[2017-11-02 07:19] LABS: PROTHROMBIN TIME 23.8 SEC (11.4-15.4)
[2017-11-02 07:22] LABS: HEMATOCRIT 33.9 % (37.9-51.0); HEMOGLOBIN 11.2 g/dL (13.5-17.0); MEAN CORPUSCULAR HEMOGLOBIN 30.5 pg (27.0-33.4); MEAN CORPUSCULAR HGB CONC 32.9 g/dL (32.0-36.0); MEAN CORPUSCULAR VOLUME 93 fl (80-97); RED BLOOD COUNT 3.66 10^6/uL (4.35-5.55); RED CELL DISTRIBUTION WIDTH 17.7 % (11.5-14.0); WHITE BLOOD COUNT 7.6 10^3/uL (4.0-10.5)
[2017-11-02 07:42] LABS: ANION GAP 5 (5-19); BLOOD UREA NITROGEN 57 mg/dL (7-20); CARBON DIOXIDE 33 mmol/L (22-30); CHLORIDE 104 mmol/L (98-107); GLUCOSE 207 mg/dL (75-110); POTASSIUM 4.5 mmol/L (3.6-5.0); SODIUM 141.8 mmol/L (137-145)
[2017-11-02 08:01] LABS: PLATELET COUNT 89 10^3/uL (150-450)
[2017-11-02 08:03] LABS: ABSOLUTE LYMPHOCYTES# (MANUAL) 0.5 10^3/uL (0.5-4.7); ABSOLUTE MONOCYTES # (MANUAL) 1.1 10^3/uL (0.1-1.4); ABSOLUTE NEUTROPHILS# (MANUAL) 5.9 10^3/uL (1.7-8.2); BASOPHILS % (MANUAL) 0 % (0-2); EOSINOPHILS % (MANUAL) 0 % (0-6); LYMPHOCYTES % (MANUAL) 7 % (13-45); METAMYELOCYTES % (MANUAL) 1 % (0); MONOCYTES % (MANUAL) 15 % (3-13); MYELOCYTES % (MANUAL) 1 % (0); PROMYELOCYTES % (MANUAL) 1 % (0); SEGMENTED NEUTROPHILS % (MAN) 75 % (42-78); TOTAL CELLS COUNTED 100
[2017-11-02 08:04] LABS: ANISOCYTOSIS 1+; PLATELET COMMENT DECREASED; TOXIC GRANULATION SLIGHT
[2017-11-02] MEDS: INSULIN LISPRO 100 UNIT/ML 3 ML VIAL SUBCUT SCH ×3 (08:55→17:23)
[2017-11-02] MEDS: INSULIN LISPRO 100 UNIT/ML 3 ML VIAL SUBCUT PRN ×3 (08:56→22:32)
[2017-11-02] MEDS: LANSOPRAZOLE 15 MG TAB.RAP.DR PO SCH (10:29)
[2017-11-02] MEDS: POTASSIUM CHLORIDE 10 MEQ TABLET.SA PO SCH (10:29)
[2017-11-02] MEDS: PREDNISONE 20 MG TABLET PO SCH (10:30)
[2017-11-02] MEDS: ALLOPURINOL 300 MG TABLET PO SCH (10:30)
[2017-11-02] MEDS: METOPROLOL SUCCINATE 50 MG TAB.SR.24H PO SCH (10:30)
[2017-11-02] MEDS: MULTIVITAMIN TABLET PO SCH (10:30)
[2017-11-02] MEDS: PREGABALIN 75 MG CAPSULE PO SCH ×2 (10:31→22:06)
[2017-11-02] MEDS: ASPIRIN 81 MG TABLET, ENT COATED PO SCH (10:32)
[2017-11-02] MEDS: ISOSORBIDE MONONITRATE 30 MG TAB.ER.24H PO SCH (10:32)
[2017-11-02] MEDS: MAGNESIUM OXIDE 400 MG TABLET PO SCH ×2 (10:32→17:22)
[2017-11-02] MEDS: DRONEDARONE HYDROCHLORIDE 400 MG TABLET PO SCH ×2 (10:33→22:06)
[2017-11-02] MEDS: LACTULOSE SYRUP 20 GM/30 ML UDCUP PO SCH ×2 (10:33→22:07)
[2017-11-02] MEDS: BUDESONIDE/FORMOTEROL 160-4.5 MCG 60 PUFF/6 GM MDI IH SCH ×2 (10:33→22:18)
[2017-11-02] MEDS: FUROSEMIDE INJ/PF 40 MG/4 ML SDV IV SCH (10:33)
[2017-11-02] MEDS: TIOTROPIUM BROMIDE DPI 5 CAP/KIT (18 MCG/CAP) IH SCH (10:34)
[2017-11-02] MEDS: CEFEPIME 1 GM/D5W RTU 1 GM/50 ML RTUPB IV SCH (10:35)
[2017-11-02] MEDS: RANOLAZINE 500 MG TAB.SR.12H PO SCH ×2 (10:36→22:05)
[2017-11-02] MEDS: DOXAZOSIN MESYLATE 1 MG TABLET PO SCH (10:37)
[2017-11-02] MEDS: CHOLECALCIFEROL (D3) 400 UNIT TABLET PO SCH (10:37)
[2017-11-02] MEDS: DOCUSATE SODIUM 100 MG CAPSULE PO SCH (10:38)
[2017-11-02] MEDS: FLUTICASONE NASAL SPRAY 50 MCG/SPRY 120 SPRAY/16 GM NASL SCH ×2 (10:38→22:18)
--- NOTE | 2017-11-02 14:16 | PDOC PROGRESS REPORT ---
Subjective Progress Note for:: 11/02/17 Subjective:: Patient is seen in rounds. He is resting on the side of the bed eating breakfast. He states he feels better than he did yesterday. He feels his cough is improving and is mostly nonproductive. He denies any chest pain, shortness breath or dyspnea at rest at the present time. Denies any nausea, vomiting or abdominal pain. He denies any fever or chills. He complains of pain in the right lower extremity. He has a small abrasion over the mid calf. He denies any other arthralgias or myalgias. Remaining review of systems are negative. Reason For Visit: COPD EXACERBATION HEART FAILURE EXACERBATION Physical Exam Vital Signs: Temp Pulse Resp BP Pulse Ox 97.5 F 60 17 142/52 H 96 11/02/17 11:16 11/02/17 11:16 11/02/17 07:42 11/02/17 11:16 11/02/17 11:30 Intake & Output 11/01/17 11/02/17 11/03/17 06:59 06:59 06:59 Intake Total 812 1522 Balance 812 1522 Weight 111 kg 111.5 kg General appearance: PRESENT: no acute distress, obese, well-developed, well- nourished Head exam: PRESENT: atraumatic, normocephalic Eye exam: PRESENT: conjunctiva pink, EOMI, PERRLA. ABSENT: scleral icterus Ear exam: PRESENT: normal external ear exam Mouth exam: PRESENT: moist, tongue midline Neck exam: ABSENT: carotid bruit, JVD, lymphadenopathy, thyromegaly Respiratory exam: PRESENT: symmetrical, unlabored, wheezes - Bilateral expiratory Cardiovascular exam: PRESENT: irregular rhythm, +S1, +S2 Pulses: PRESENT: normal carotid pulses, normal radial pulses Vascular exam: PRESENT: normal capillary refill GI/Abdominal exam: PRESENT: normal bowel sounds, soft Rectal exam: PRESENT: deferred Extremities exam: PRESENT: full ROM, +2 edema - Right lower extremity, he has left BKA, other Musculoskeletal exam: PRESENT: ambulatory, tenderness - Right lower extremity chronic venous stasis areas Neurological exam: PRESENT: alert, awake, oriented to person, oriented to place , oriented to time, oriented to situation, CN II-XII grossly intact. ABSENT: motor sensory deficit Psychiatric exam: PRESENT: appropriate affect, normal mood. ABSENT: homicidal ideation, suicidal ideation Skin exam: PRESENT: abrasion, dry, intact, skin tears - Patient has multiple skin tears over his right upper arm. He has a mid right anterior calf abrasion , warm. ABSENT: cyanosis, rash Results Laboratory Results: 11/02/17 06:06 11/02/17 06:06 11/02/17 11/02/17 06:06 06:06 WBC 7.6 RBC 3.66 L Hgb 11.2 L Hct 33.9 L MCV 93 MCH 30.5 MCHC 32.9 RDW 17.7 H Plt Count 89 L Seg Neutrophils % Not Reportable Lymphocytes % Not Reportable Monocytes % Not Reportable Eosinophils % Not Reportable Basophils % Not Reportable Absolute Neutrophils Not Reportable Absolute Lymphocytes Not Reportable Absolute Monocytes Not Reportable Absolute Eosinophils Not Reportable Absolute Basophils Not Reportable Sodium 141.8 Potassium 4.5 Chloride 104 Carbon Dioxide 33 H Anion Gap 5 BUN 57 H Creatinine 1.87 H Est GFR ( Amer) 42 L Est GFR (Non-Af Amer) 35 L Glucose 207 H Calcium 9.0 10/25/17 10/25/17 10/25/17 04:28 04:28 11:04 Creatine Kinase 25 L 22 L CK-MB (CK-2) 1.03 Troponin I < 0.012 10/25/17 11:04 Creatine Kinase CK-MB (CK-2) 0.94 Troponin I 0.013 Impressions: Head CT 10/24/17 16:35 IMPRESSION: CHRONIC CHANGES OF ATROPHY AND MICROVASCULAR ISCHEMIA. NO ACUTE PROCESS. EVIDENCE OF ACUTE STROKE: NO. Chest X-Ray 10/27/17 00:00 IMPRESSION: No acute changes Chest CT 10/29/17 00:00 IMPRESSION: Patchy consolidation in the medial and posterior basilar segments of the left lower lobe. Minimal ground-glass opacities in the right upper lobe. Assessment & Plan - Diagnosis (1) Acute on chronic respiratory failure with hypoxia and hypercapnia Is this a current diagnosis for this admission?: Yes Plan: Secondary to indiscretions of diet. We will continue diuresis and BiPAP at night. He also has an underlying community acquired pneumonia (2) Community acquired pneumonia Qualifiers: Laterality: right Is this a current diagnosis for this admission?: Yes (3) COPD exacerbation Is this a current diagnosis for this admission?: Yes Plan: Continue current nebulizer treatments, Mucinex and steroids (4) DM type 2 (diabetes mellitus, type 2) Qualifiers: Diabetes mellitus complication status: with hyperglycemia Diabetes mellitus terminal clerk insulin use: with terminal clerk use Qualified Code(s): E11.65 - Type 2 diabetes mellitus with hyperglycemia; Z79.4 - rat exterminator (current) use of insulin; Z79.4 - [facility] (current) use of insulin; Z79.4 - rat exterminator ( current) use of insulin; Z79.4 - rat exterminator (current) use of insulin Is this a current diagnosis for this admission?: Yes (5) Chronic kidney disease, stage 3 Is this a current diagnosis for this admission?: Yes Plan: Avoid nephrotoxic medications and dosages (6) Anemia Qualifiers: Other causes of anemia: chronic disease, other Is this a current diagnosis for this admission?: Yes Plan: Secondary to chronic disease presently stable (7) Chronic idiopathic thrombocytopenia Is this a current diagnosis for this admission?: Yes Plan: Stable (8) Constipation Qualifiers: Constipation type: unspecified constipation type Qualified Code(s): K59.00 - Constipation, unspecified Plan: Continue home medications (9) Diabetes type 2, uncontrolled Qualifiers: Diabetes mellitus complication status: with hyperglycemia Diabetes mellitus terminal clerk insulin use: with terminal clerk use Qualified Code(s): E11.65 - Type 2 diabetes mellitus with hyperglycemia; Z79.4 - [facility] (current) use of insulin; Z79.4 - [facility] (current) use of insulin; Z79.4 - [facility] ( current) use of insulin; Z79.4 - rat exterminator (current) use of insulin Is this a current diagnosis for this admission?: Yes Plan: Continue home medications and sliding scale coverage (10) Hyperlipidemia Qualifiers: Hyperlipidemia type: unspecified Qualified Code(s): E78.5 - Hyperlipidemia , unspecified Plan: Continue statin (11) Hypertension Qualifiers: Hypertension type: essential hypertension Qualified Code(s): I10 - Essential (primary) hypertension Is this a current diagnosis for this admission?: Yes Plan: Continue home medications he is euvolemic - Time Time Spent with patient: 25-34 minutes Total Critical Time (Minutes): 20 Medications reviewed and adjusted accordingly: Yes Anticipated discharge: Home with Homehealth
[2017-11-02] MEDS: WARFARIN SODIUM 2 MG TABLET PO SCH (22:03)
[2017-11-02] MEDS: ATORVASTATIN CALCIUM 40 MG TABLET PO SCH (22:06)
[2017-11-02] MEDS: MONTELUKAST SODIUM 10 MG TABLET PO SCH (22:06)
[2017-11-02] MEDS: TAMSULOSIN HCL 0.4 MG CAP.SR.24H PO SCH (22:06)
[2017-11-02] MEDS: FINASTERIDE 5 MG TABLET PO SCH (22:06)
[2017-11-02] MEDS: NITROGLYCERIN 5 MG (0.2 MG/HR) PATCH.TD24 TD SCH (22:07)
[2017-11-02] MEDS ORDERED: OXYCODONE HCL IR 5 MG TABLET ONE (22:20)
[2017-11-02] MEDS ORDERED: OXYCODONE HCL IR 5 MG TABLET PO ONE (22:30)
[2017-11-02] MEDS: INSULIN GLARGINE,HUM.REC.ANLOG 300 UNIT/3 ML INSULN.PEN SUBCUT SCH (22:32)
[2017-11-03] MEDS: HYDRALAZINE HCL 25 MG TABLET PO SCH ×4 (00:46→18:50)
[2017-11-03] MEDS: CEFEPIME 1 GM/D5W RTU 1 GM/50 ML RTUPB IV SCH ×3 (00:47→23:49)
[2017-11-03] MEDS: HYDROCODONE/ACETAMINOPHEN 10-325 MG TABLET PO PRN ×3 (06:16→18:52)
[2017-11-03] MEDS: DOXYCYCLINE HYCLATE 100 MG in DEXTROSE 5%-WATER 250 ML IV SCH ×2 (06:17→18:30)
[2017-11-03] MEDS: IPRATROPIUM/ALBUTEROL 0.5-2.5 MG/3 ML AMPUL NEB PRN (08:59)
[2017-11-03] MEDS: MAGNESIUM OXIDE 400 MG TABLET PO SCH ×2 (09:55→18:51)
[2017-11-03] MEDS: LANSOPRAZOLE 15 MG TAB.RAP.DR PO SCH (09:55)
[2017-11-03] MEDS: INSULIN LISPRO 100 UNIT/ML 3 ML VIAL SUBCUT SCH ×3 (09:55→18:31)
[2017-11-03] MEDS: INSULIN LISPRO 100 UNIT/ML 3 ML VIAL SUBCUT PRN ×3 (09:55→18:31)
[2017-11-03] MEDS: POTASSIUM CHLORIDE 10 MEQ TABLET.SA PO SCH (09:55)
[2017-11-03] MEDS: MULTIVITAMIN TABLET PO SCH (09:55)
[2017-11-03] MEDS: METOPROLOL SUCCINATE 50 MG TAB.SR.24H PO SCH (09:56)
[2017-11-03] MEDS: ISOSORBIDE MONONITRATE 30 MG TAB.ER.24H PO SCH (09:56)
[2017-11-03] MEDS: PREGABALIN 75 MG CAPSULE PO SCH (09:57)
[2017-11-03] MEDS: PREDNISONE 20 MG TABLET PO SCH (09:57)
[2017-11-03] MEDS: ASPIRIN 81 MG TABLET, ENT COATED PO SCH (09:57)
[2017-11-03] MEDS: ALLOPURINOL 300 MG TABLET PO SCH (09:58)
[2017-11-03] MEDS: LACTULOSE SYRUP 20 GM/30 ML UDCUP PO SCH (09:59)
[2017-11-03] MEDS: FUROSEMIDE INJ/PF 40 MG/4 ML SDV IV SCH (09:59)
[2017-11-03] MEDS: TIOTROPIUM BROMIDE DPI 5 CAP/KIT (18 MCG/CAP) IH SCH (10:00)
[2017-11-03] MEDS: BUDESONIDE/FORMOTEROL 160-4.5 MCG 60 PUFF/6 GM MDI IH SCH (10:00)
[2017-11-03] MEDS: CHOLECALCIFEROL (D3) 400 UNIT TABLET PO SCH (10:01)
[2017-11-03] MEDS: DRONEDARONE HYDROCHLORIDE 400 MG TABLET PO SCH (10:01)
[2017-11-03] MEDS: DOXAZOSIN MESYLATE 1 MG TABLET PO SCH (10:01)
[2017-11-03] MEDS: RANOLAZINE 500 MG TAB.SR.12H PO SCH (10:02)
[2017-11-03] MEDS: DOCUSATE SODIUM 100 MG CAPSULE PO SCH (10:02)
[2017-11-03] MEDS: FLUTICASONE NASAL SPRAY 50 MCG/SPRY 120 SPRAY/16 GM NASL SCH (13:48)
--- NOTE | 2017-11-03 17:15 | PDOC PROGRESS REPORT ---
Subjective Progress Note for:: 11/03/17 Subjective:: Patient is seen in rounds. He is resting on the side of the bed eating breakfast. He states he feels better than he did yesterday. He feels his cough is improving and is mostly nonproductive. It sounds moist and congested. He denies any chest pain, shortness breath or dyspnea at rest at the present time. Denies any nausea, vomiting or abdominal pain. He denies any fever or chills. He complains of pain in the right lower extremity. He has a small abrasion over the mid calf. He denies any other arthralgias or myalgias. Remaining review of systems are negative. Reason For Visit: COPD EXACERBATION HEART FAILURE EXACERBATION Physical Exam Vital Signs: Temp Pulse Resp BP Pulse Ox 97.5 F 60 18 118/46 L 97 11/03/17 16:03 11/03/17 16:03 11/03/17 16:03 11/03/17 16:03 11/03/17 16:03 Intake & Output 11/02/17 11/03/17 11/04/17 06:59 06:59 06:59 Intake Total 1522 1092 Balance 1522 1092 Weight 111.5 kg General appearance: PRESENT: no acute distress, well-developed, well-nourished Head exam: PRESENT: atraumatic, normocephalic Eye exam: PRESENT: conjunctiva pink, EOMI, PERRLA. ABSENT: scleral icterus Ear exam: PRESENT: normal external ear exam Mouth exam: PRESENT: moist, tongue midline Neck exam: ABSENT: carotid bruit, JVD, lymphadenopathy, thyromegaly Respiratory exam: PRESENT: clear to auscultation dipti. ABSENT: rales, rhonchi, wheezes Cardiovascular exam: PRESENT: RRR. ABSENT: diastolic murmur, rubs, systolic murmur Pulses: PRESENT: normal dorsalis pedis pul Vascular exam: PRESENT: other - Dark chronic venous stasis changes over anterior right leg, wrapped with jacinto wrap GI/Abdominal exam: PRESENT: normal bowel sounds, soft. ABSENT: distended, guarding, mass, organolmegaly, rebound, tenderness Rectal exam: PRESENT: deferred Extremities exam: PRESENT: full ROM. ABSENT: calf tenderness, clubbing, pedal edema Musculoskeletal exam: PRESENT: ambulatory, full ROM, tenderness - right anterior calf Neurological exam: PRESENT: alert, awake, oriented to person, oriented to place , oriented to time, oriented to situation, CN II-XII grossly intact. ABSENT: motor sensory deficit Psychiatric exam: PRESENT: appropriate affect, normal mood. ABSENT: homicidal ideation, suicidal ideation Skin exam: PRESENT: dry, erythema, intact, skin tears - bilateral forearms and anterior right calf, warm. ABSENT: cyanosis, rash Results Laboratory Results: 11/02/17 06:06 11/02/17 06:06 10/25/17 10/25/17 10/25/17 04:28 04:28 11:04 Creatine Kinase 25 L 22 L CK-MB (CK-2) 1.03 Troponin I < 0.012 10/25/17 11:04 Creatine Kinase CK-MB (CK-2) 0.94 Troponin I 0.013 Impressions: Head CT 10/24/17 16:35 IMPRESSION: CHRONIC CHANGES OF ATROPHY AND MICROVASCULAR ISCHEMIA. NO ACUTE PROCESS. EVIDENCE OF ACUTE STROKE: NO. Chest X-Ray 10/27/17 00:00 IMPRESSION: No acute changes Chest CT 10/29/17 00:00 IMPRESSION: Patchy consolidation in the medial and posterior basilar segments of the left lower lobe. Minimal ground-glass opacities in the right upper lobe. Assessment & Plan - Diagnosis (1) Acute on chronic respiratory failure with hypoxia and hypercapnia Is this a current diagnosis for this admission?: Yes Plan: Secondary to indiscretions of diet. We will continue diuresis and BiPAP at night. He also has an underlying community acquired pneumonia (2) Community acquired pneumonia Qualifiers: Laterality: right Is this a current diagnosis for this admission?: Yes Plan: Pulmonary following (3) COPD exacerbation Is this a current diagnosis for this admission?: Yes Plan: Continue current nebulizer treatments, Mucinex and steroids (4) DM type 2 (diabetes mellitus, type 2) Qualifiers: Diabetes mellitus complication status: with hyperglycemia Diabetes mellitus group home insulin use: with group home use Qualified Code(s): E11.65 - Type 2 diabetes mellitus with hyperglycemia; Z79.4 - [facility] (current) use of insulin; Z79.4 - [facility] (current) use of insulin; Z79.4 - [facility] ( current) use of insulin; Z79.4 - [facility] (current) use of insulin Is this a current diagnosis for this admission?: Yes Plan: Continue home medications and sliding scale coverage (5) Chronic kidney disease, stage 3 Is this a current diagnosis for this admission?: Yes Plan: Avoid nephrotoxic medications and dosages (6) Anemia Qualifiers: Other causes of anemia: chronic disease, other Is this a current diagnosis for this admission?: Yes Plan: Secondary to chronic disease presently stable (7) Chronic idiopathic thrombocytopenia Is this a current diagnosis for this admission?: Yes Plan: Stable (8) Constipation Qualifiers: Constipation type: unspecified constipation type Qualified Code(s): K59.00 - Constipation, unspecified Plan: Continue home medications (9) Diabetes type 2, uncontrolled Qualifiers: Diabetes mellitus complication status: with hyperglycemia Diabetes mellitus group home insulin use: with petroleum terminal plant operator use Qualified Code(s): E11.65 - Type 2 diabetes mellitus with hyperglycemia; Z79.4 - assistant terminal manager (current) use of insulin; Z79.4 - assistant terminal manager (current) use of insulin; Z79.4 - assistant terminal manager ( current) use of insulin; Z79.4 - [facility] (current) use of insulin Is this a current diagnosis for this admission?: Yes Plan: Continue home medications and sliding scale coverage (10) Hyperlipidemia Qualifiers: Hyperlipidemia type: unspecified Qualified Code(s): E78.5 - Hyperlipidemia , unspecified Plan: Continue statin (11) Hypertension Qualifiers: Hypertension type: essential hypertension Qualified Code(s): I10 - Essential (primary) hypertension Is this a current diagnosis for this admission?: Yes Plan: Continue home medications he is euvolemic - Time Time Spent with patient: 25-34 minutes Smoking Cessation Education: 3 to 10 minutes Medications reviewed and adjusted accordingly: Yes Anticipated discharge: Home with Homehealth
[2017-11-04] MEDS: ATORVASTATIN CALCIUM 40 MG TABLET PO SCH ×2 (00:11→21:44)
[2017-11-04] MEDS: FINASTERIDE 5 MG TABLET PO SCH ×2 (00:12→21:45)
[2017-11-04] MEDS: INSULIN GLARGINE,HUM.REC.ANLOG 300 UNIT/3 ML INSULN.PEN SUBCUT SCH ×2 (00:12→21:45)
[2017-11-04] MEDS: DRONEDARONE HYDROCHLORIDE 400 MG TABLET PO SCH ×3 (00:12→21:45)
[2017-11-04] MEDS: BUDESONIDE/FORMOTEROL 160-4.5 MCG 60 PUFF/6 GM MDI IH SCH ×3 (00:12→21:45)
[2017-11-04] MEDS: NITROGLYCERIN 5 MG (0.2 MG/HR) PATCH.TD24 TD SCH ×2 (00:13→21:47)
[2017-11-04] MEDS: MONTELUKAST SODIUM 10 MG TABLET PO SCH ×2 (00:13→21:44)
[2017-11-04] MEDS: LACTULOSE SYRUP 20 GM/30 ML UDCUP PO SCH ×3 (00:13→21:44)
[2017-11-04] MEDS: PREGABALIN 75 MG CAPSULE PO SCH ×3 (00:14→21:44)
[2017-11-04] MEDS: RANOLAZINE 500 MG TAB.SR.12H PO SCH ×3 (00:14→21:45)
[2017-11-04] MEDS: WARFARIN SODIUM 2 MG TABLET PO SCH ×2 (00:14→21:44)
[2017-11-04] MEDS: TAMSULOSIN HCL 0.4 MG CAP.SR.24H PO SCH ×2 (00:15→21:44)
[2017-11-04] MEDS: FLUTICASONE NASAL SPRAY 50 MCG/SPRY 120 SPRAY/16 GM NASL SCH ×3 (00:48→21:47)
[2017-11-04] MEDS: HYDRALAZINE HCL 25 MG TABLET PO SCH ×4 (01:04→18:47)
[2017-11-04] MEDS: HYDROCODONE/ACETAMINOPHEN 10-325 MG TABLET PO PRN ×2 (05:38→12:25)
[2017-11-04] MEDS: DOXYCYCLINE HYCLATE 100 MG in DEXTROSE 5%-WATER 250 ML IV SCH ×2 (05:38→18:47)
[2017-11-04 05:48] LABS: ANION GAP 5 (5-19); BLOOD UREA NITROGEN 51 mg/dL (7-20); CALCIUM 8.8 mg/dL (8.4-10.2); CARBON DIOXIDE 30 mmol/L (22-30); CHLORIDE 106 mmol/L (98-107); GLUCOSE 244 mg/dL (75-110); POTASSIUM 4.5 mmol/L (3.6-5.0); SODIUM 140.9 mmol/L (137-145)
[2017-11-04] MEDS: INSULIN LISPRO 100 UNIT/ML 3 ML VIAL SUBCUT PRN ×3 (08:10→18:31)
[2017-11-04] MEDS: INSULIN LISPRO 100 UNIT/ML 3 ML VIAL SUBCUT SCH ×3 (08:11→18:32)
[2017-11-04] MEDS: ISOSORBIDE MONONITRATE 30 MG TAB.ER.24H PO SCH (10:08)
[2017-11-04] MEDS: PREDNISONE 20 MG TABLET PO SCH (10:09)
[2017-11-04] MEDS: ASPIRIN 81 MG TABLET, ENT COATED PO SCH (10:10)
[2017-11-04] MEDS: MULTIVITAMIN TABLET PO SCH (10:10)
[2017-11-04] MEDS: MAGNESIUM OXIDE 400 MG TABLET PO SCH ×2 (10:10→18:47)
[2017-11-04] MEDS: LANSOPRAZOLE 15 MG TAB.RAP.DR PO SCH (10:11)
[2017-11-04] MEDS: ALLOPURINOL 300 MG TABLET PO SCH (10:11)
[2017-11-04] MEDS: FUROSEMIDE INJ/PF 40 MG/4 ML SDV IV SCH (10:11)
[2017-11-04] MEDS: CEFEPIME 1 GM/D5W RTU 1 GM/50 ML RTUPB IV SCH ×2 (10:18→21:45)
[2017-11-04] MEDS: TIOTROPIUM BROMIDE DPI 5 CAP/KIT (18 MCG/CAP) IH SCH (10:18)
[2017-11-04] MEDS: DOXAZOSIN MESYLATE 1 MG TABLET PO SCH (10:19)
[2017-11-04] MEDS: CHOLECALCIFEROL (D3) 400 UNIT TABLET PO SCH (10:20)
[2017-11-04] MEDS: DOCUSATE SODIUM 100 MG CAPSULE PO SCH (10:34)
[2017-11-04] MEDS: POTASSIUM CHLORIDE 10 MEQ TABLET.SA PO SCH (10:46)
[2017-11-04] MEDS: METOPROLOL SUCCINATE 50 MG TAB.SR.24H PO SCH (10:46)
[2017-11-04] MEDS: IPRATROPIUM/ALBUTEROL 0.5-2.5 MG/3 ML AMPUL NEB PRN (12:57)
[2017-11-04 16:07] LABS: INTERNATIONAL RATION (INR) 2.28; PROTHROMBIN TIME 26.3 SEC (11.4-15.4)
[2017-11-04] MEDS ORDERED: INSULIN GLARGINE,HUM.REC.ANLOG 1,000 UNIT/10 ML UNIT SUBCUT ONE (21:27)
[2017-11-04] MEDS: NYSTATIN 500000 UNIT/5 ML UDCUP PO SCH (21:43)
[2017-11-05] MEDS: HYDROCODONE/ACETAMINOPHEN 10-325 MG TABLET PO PRN ×3 (00:50→20:17)
[2017-11-05] MEDS: HYDRALAZINE HCL 25 MG TABLET PO SCH ×5 (01:01→23:24)
--- NOTE | 2017-11-05 02:23 | PDOC PROGRESS REPORT ---
Subjective Progress Note for:: 11/04/17 Subjective:: No complaints Review of systems All organ systems evaluated and negative except as in subjective Reason For Visit: COPD EXACERBATION HEART FAILURE EXACERBATION Physical Exam Vital Signs: Temp Pulse Resp BP Pulse Ox 97.8 F 59 L 18 113/43 L 93 11/04/17 19:51 11/04/17 19:51 11/04/17 19:51 11/04/17 19:51 11/04/17 19:51 Intake & Output 11/03/17 11/04/17 11/05/17 06:59 06:59 06:59 Intake Total 1092 560 300 Balance 1092 560 300 General appearance: PRESENT: no acute distress, cooperative Head exam: PRESENT: normocephalic Eye exam: PRESENT: conjunctiva pink, EOMI, PERRLA Mouth exam: PRESENT: moist Neck exam: PRESENT: full ROM. ABSENT: JVD Respiratory exam: PRESENT: crackles, wheezes. ABSENT: tachypnea, unlabored Cardiovascular exam: PRESENT: irregular rhythm. ABSENT: diastolic murmur, systolic murmur Vascular exam: PRESENT: normal capillary refill GI/Abdominal exam: PRESENT: normal bowel sounds, soft. ABSENT: tenderness Extremities exam: ABSENT: pedal edema Musculoskeletal exam: ABSENT: ambulatory Neurological exam: PRESENT: awake, oriented to person, oriented to place, oriented to time Psychiatric exam: PRESENT: appropriate affect, normal mood Skin exam: PRESENT: intact, normal color Results Laboratory Results: 11/02/17 06:06 11/04/17 04:34 11/04/17 04:34 Sodium 140.9 Potassium 4.5 Chloride 106 Carbon Dioxide 30 Anion Gap 5 BUN 51 H Creatinine 1.82 H Est GFR ( Amer) 44 L Est GFR (Non-Af Amer) 36 L Glucose 244 H Calcium 8.8 10/25/17 10/25/17 10/25/17 04:28 04:28 11:04 Creatine Kinase 25 L 22 L CK-MB (CK-2) 1.03 Troponin I < 0.012 NT-Pro-B Natriuret Pep 10/25/17 11/04/17 11:04 04:34 Creatine Kinase CK-MB (CK-2) 0.94 Troponin I 0.013 NT-Pro-B Natriuret Pep 3980 H Impressions: Head CT 10/24/17 16:35 IMPRESSION: CHRONIC CHANGES OF ATROPHY AND MICROVASCULAR ISCHEMIA. NO ACUTE PROCESS. EVIDENCE OF ACUTE STROKE: NO. Chest X-Ray 10/27/17 00:00 IMPRESSION: No acute changes Chest CT 10/29/17 00:00 IMPRESSION: Patchy consolidation in the medial and posterior basilar segments of the left lower lobe. Minimal ground-glass opacities in the right upper lobe. Assessment & Plan - Diagnosis (1) Chronic atrial fibrillation Is this a current diagnosis for this admission?: Yes Plan: Stable (2) Chronic kidney disease, stage 3 Is this a current diagnosis for this admission?: Yes Plan: Stable (3) DM type 2 (diabetes mellitus, type 2) Qualifiers: Diabetes mellitus complication status: with hyperglycemia Diabetes mellitus alf insulin use: with alf use Qualified Code(s): E11.65 - Type 2 diabetes mellitus with hyperglycemia; Z79.4 - custodial (current) use of insulin; Z79.4 - intermediate manager (current) use of insulin; Z79.4 - custodial ( current) use of insulin; Z79.4 - custodial (current) use of insulin Is this a current diagnosis for this admission?: Yes Plan: Continue present treatment (4) Acute on chronic respiratory failure with hypoxia and hypercapnia Is this a current diagnosis for this admission?: Yes Plan: Acute resolved.Continue use of bipap (5) Acute on chronic systolic heart failure Is this a current diagnosis for this admission?: Yes Plan: Continue present treatment (6) COPD (chronic obstructive pulmonary disease) 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 Qualified Code(s): J43.1 - Panlobular emphysema Is this a current diagnosis for this admission?: Yes Plan: Continue present treatment (7) Community acquired pneumonia Qualifiers: Laterality: right Is this a current diagnosis for this admission?: Yes Plan: Continue present treatment - Time Time Spent with patient: 15-24 minutes Medications reviewed and adjusted accordingly: Yes Anticipated discharge: Home Within: within 48 hours - Inpatient Certification Based on my medical assessment, after consideration of the patient's comorbidities, presenting symptoms, or acuity I expect that the services needed warrant INPATIENT care.: Yes I certify that my determination is in accordance with my understanding of Medicare's requirements for reasonable and necessary INPATIENT services [42 CFR 412.3e].: Yes Medical Necessity: Need Close Monitoring Due to Risk of Patient Decompensation, Need for Nebulizer Therapy and Monitoring of Response, Need for IV Antibiotics
[2017-11-05] MEDS: DOXYCYCLINE HYCLATE 100 MG in DEXTROSE 5%-WATER 250 ML IV SCH (06:33)
[2017-11-05] MEDS: ACETYLCYSTEINE 10% NEB 400 MG/4 ML VIAL NEB SCH ×3 (08:46→19:44)
[2017-11-05] MEDS: DOCUSATE SODIUM 100 MG CAPSULE PO SCH (09:33)
[2017-11-05] MEDS: ASPIRIN 81 MG TABLET, ENT COATED PO SCH (09:33)
[2017-11-05] MEDS: LACTULOSE SYRUP 20 GM/30 ML UDCUP PO SCH ×2 (09:33→23:02)
[2017-11-05] MEDS: METOPROLOL SUCCINATE 50 MG TAB.SR.24H PO SCH (09:34)
[2017-11-05] MEDS: ALLOPURINOL 300 MG TABLET PO SCH (09:34)
[2017-11-05] MEDS: LANSOPRAZOLE 15 MG TAB.RAP.DR PO SCH (09:34)
[2017-11-05] MEDS: ISOSORBIDE MONONITRATE 30 MG TAB.ER.24H PO SCH (09:34)
[2017-11-05] MEDS: GUAIFENESIN 600 MG TABLET.SA PO SCH ×2 (09:34→23:03)
[2017-11-05] MEDS: PREGABALIN 75 MG CAPSULE PO SCH ×2 (09:35→23:03)
[2017-11-05] MEDS: MULTIVITAMIN TABLET PO SCH (09:35)
[2017-11-05] MEDS: MAGNESIUM OXIDE 400 MG TABLET PO SCH ×2 (09:35→18:06)
[2017-11-05] MEDS: POTASSIUM CHLORIDE 10 MEQ TABLET.SA PO SCH (09:35)
[2017-11-05] MEDS: RANOLAZINE 500 MG TAB.SR.12H PO SCH ×2 (09:36→23:04)
[2017-11-05] MEDS: TIOTROPIUM BROMIDE DPI 5 CAP/KIT (18 MCG/CAP) IH SCH (09:36)
[2017-11-05] MEDS: DOXAZOSIN MESYLATE 1 MG TABLET PO SCH (09:36)
[2017-11-05] MEDS: BUDESONIDE/FORMOTEROL 160-4.5 MCG 60 PUFF/6 GM MDI IH SCH ×2 (09:36→23:04)
[2017-11-05] MEDS: DRONEDARONE HYDROCHLORIDE 400 MG TABLET PO SCH ×2 (09:41→23:04)
[2017-11-05] MEDS: INSULIN LISPRO 100 UNIT/ML 3 ML VIAL SUBCUT SCH ×3 (09:41→18:06)
[2017-11-05] MEDS: NYSTATIN 500000 UNIT/5 ML UDCUP PO SCH ×4 (11:12→23:03)
[2017-11-05] MEDS: FUROSEMIDE INJ/PF 40 MG/4 ML SDV IV SCH (11:12)
[2017-11-05] MEDS: FLUTICASONE NASAL SPRAY 50 MCG/SPRY 120 SPRAY/16 GM NASL SCH ×2 (11:15→23:17)
--- NOTE | 2017-11-05 13:14 | PDOC PROGRESS REPORT ---
Subjective Progress Note for:: 11/05/17 Subjective:: Complains of being congested today and cough Review of systems All organ systems evaluated and negative except as in subjective All laboratories and significant diagnostics have been reviewed Reason For Visit: COPD EXACERBATION HEART FAILURE EXACERBATION Physical Exam Vital Signs: Temp Pulse Resp BP Pulse Ox 97.3 F 60 19 132/58 H 100 11/05/17 03:42 11/05/17 03:42 11/05/17 06:06 11/05/17 03:42 11/05/17 03:42 Intake & Output 11/04/17 11/05/17 11/06/17 06:59 06:59 06:59 Intake Total 560 650 Balance 560 650 Results Laboratory Results: 11/02/17 06:06 11/04/17 04:34 10/25/17 10/25/17 10/25/17 04:28 04:28 11:04 Creatine Kinase 25 L 22 L CK-MB (CK-2) 1.03 Troponin I < 0.012 NT-Pro-B Natriuret Pep 10/25/17 11/04/17 11:04 04:34 Creatine Kinase CK-MB (CK-2) 0.94 Troponin I 0.013 NT-Pro-B Natriuret Pep 3980 H Impressions: Head CT 10/24/17 16:35 IMPRESSION: CHRONIC CHANGES OF ATROPHY AND MICROVASCULAR ISCHEMIA. NO ACUTE PROCESS. EVIDENCE OF ACUTE STROKE: NO. Chest X-Ray 10/27/17 00:00 IMPRESSION: No acute changes Chest CT 10/29/17 00:00 IMPRESSION: Patchy consolidation in the medial and posterior basilar segments of the left lower lobe. Minimal ground-glass opacities in the right upper lobe. Assessment & Plan - Diagnosis (1) Chronic atrial fibrillation Is this a current diagnosis for this admission?: Yes Plan: Stable (2) Chronic kidney disease, stage 3 Is this a current diagnosis for this admission?: Yes Plan: Stable. Trend since increasing lasix IV (3) DM type 2 (diabetes mellitus, type 2) Qualifiers: Diabetes mellitus complication status: with hyperglycemia Diabetes mellitus moth exterminator insulin use: with senior living use Qualified Code(s): E11.65 - Type 2 diabetes mellitus with hyperglycemia; Z79.4 - nursing home (current) use of insulin; Z79.4 - termite technician (current) use of insulin; Z79.4 - nursing home ( current) use of insulin; Z79.4 - termite technician (current) use of insulin Is this a current diagnosis for this admission?: Yes Plan: Continue present treatment (4) Acute on chronic respiratory failure with hypoxia and hypercapnia Is this a current diagnosis for this admission?: Yes Plan: Acute resolved. 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 Order follow-up chest x-ray - Time Time Spent with patient: 15-24 minutes Medications reviewed and adjusted accordingly: Yes Anticipated discharge: Home with Homehealth Within: within 72 hours - Inpatient Certification Based on my medical assessment, after consideration of the patient's comorbidities, presenting symptoms, or acuity I expect that the services needed warrant INPATIENT care.: Yes I certify that my determination is in accordance with my understanding of Medicare's requirements for reasonable and necessary INPATIENT services [42 CFR 412.3e].: Yes Medical Necessity: Need Close Monitoring Due to Risk of Patient Decompensation - IV lasix
[2017-11-05] MEDS: CHOLECALCIFEROL (D3) 400 UNIT TABLET PO SCH (13:29)
[2017-11-05] MEDS: METHYLPREDNISOLONE INJ 40 MG/1 ML SDV IV SCH (13:29)
[2017-11-05] MEDS: IPRATROPIUM/ALBUTEROL 0.5-2.5 MG/3 ML AMPUL NEB PRN ×2 (14:18→20:55)
[2017-11-05 16:40] LABS: INTERNATIONAL RATION (INR) 2.25; PROTHROMBIN TIME 26.1 SEC (11.4-15.4)
--- NOTE | 2017-11-05 18:02 | RADIOLOGY REPORT (SQ) ---
EXAM DESCRIPTION: CHEST PA/LAT COMPLETED DATE/TIME: 11/05/2017 5:44 pm REASON FOR STUDY: chest congestion COMPARISON: 10/27/2017 EXAM PARAMETERS: NUMBER OF VIEWS: two views TECHNIQUE: Digital Frontal and Lateral radiographic views of the chest acquired. RADIATION DOSE: NA LIMITATIONS: none FINDINGS: LUNGS AND PLEURA: No new opacities, masses or pneumothorax. No pleural effusion. MEDIASTINUM AND HILAR STRUCTURES: No masses or contour abnormalities. HEART AND VASCULAR STRUCTURES: Heart stable size. No evidence for failure. BONES: No acute findings. HARDWARE: Stable. OTHER: No other significant finding. IMPRESSION: NO ACUTE CARDIOPULMONARY PROCESS. NO SIGNIFICANT CHANGE FROM PRIOR STUDY. TECHNICAL DOCUMENTATION: JOB ID: [id number] [employer]- All Rights Reserved
[2017-11-05] MEDS: MONTELUKAST SODIUM 10 MG TABLET PO SCH (23:03)
[2017-11-05] MEDS: FINASTERIDE 5 MG TABLET PO SCH (23:03)
[2017-11-05] MEDS: NITROGLYCERIN 5 MG (0.2 MG/HR) PATCH.TD24 TD SCH (23:03)
[2017-11-05] MEDS: TAMSULOSIN HCL 0.4 MG CAP.SR.24H PO SCH (23:03)
[2017-11-05] MEDS: INSULIN GLARGINE,HUM.REC.ANLOG 300 UNIT/3 ML INSULN.PEN SUBCUT SCH (23:04)
[2017-11-05] MEDS: WARFARIN SODIUM 2 MG TABLET PO SCH (23:04)
[2017-11-05] MEDS: ATORVASTATIN CALCIUM 40 MG TABLET PO SCH (23:04)
[2017-11-05] MEDS: INSULIN LISPRO 100 UNIT/ML 3 ML VIAL SUBCUT PRN (23:20)
[2017-11-06] MEDS: METHYLPREDNISOLONE INJ 40 MG/1 ML SDV IV SCH ×2 (00:50→06:38)
[2017-11-06] MEDS: FUROSEMIDE INJ/PF 40 MG/4 ML SDV IV SCH ×2 (00:50→09:21)
[2017-11-06] MEDS: IPRATROPIUM/ALBUTEROL 0.5-2.5 MG/3 ML AMPUL NEB PRN ×3 (01:20→19:56)
[2017-11-06] MEDS: ACETYLCYSTEINE 10% NEB 400 MG/4 ML VIAL NEB SCH ×4 (01:21→19:56)
[2017-11-06] MEDS: HYDROCODONE/ACETAMINOPHEN 10-325 MG TABLET PO PRN ×3 (01:59→18:23)
[2017-11-06] MEDS: HYDRALAZINE HCL 25 MG TABLET PO SCH ×3 (06:38→18:22)
[2017-11-06 08:00] LABS: HEMOGLOBIN 11.3 g/dL (13.5-17.0); MEAN CORPUSCULAR HEMOGLOBIN 30.1 pg (27.0-33.4); MEAN CORPUSCULAR HGB CONC 32.4 g/dL (32.0-36.0); MEAN CORPUSCULAR VOLUME 93 fl (80-97); RED BLOOD COUNT 3.76 10^6/uL (4.35-5.55); RED CELL DISTRIBUTION WIDTH 17.8 % (11.5-14.0)
[2017-11-06 08:16] LABS: ALANINE AMINOTRANSFERASE 30 U/L (21-72); ALKALINE PHOSPHATASE 67 U/L (38-126); ANION GAP 7 (5-19); ASPARTATE AMINO TRANSFERASE 17 U/L (17-59); BILIRUBIN,DIRECT 0.3 mg/dL (0.0-0.4); BILIRUBIN,TOTAL 0.4 mg/dL (0.2-1.3); BLOOD UREA NITROGEN 58 mg/dL (7-20); CALCIUM 8.8 mg/dL (8.4-10.2); CARBON DIOXIDE 31 mmol/L (22-30); CHLORIDE 105 mmol/L (98-107); GLUCOSE 170 mg/dL (75-110); SODIUM 142.6 mmol/L (137-145); TOTAL PROTEIN 5.4 g/dL (6.3-8.2)
[2017-11-06 08:32] LABS: ABSOLUTE LYMPHOCYTES# (MANUAL) 0.2 10^3/uL (0.5-4.7); ABSOLUTE MONOCYTES # (MANUAL) 0.1 10^3/uL (0.1-1.4); ABSOLUTE NEUTROPHILS# (MANUAL) 7.7 10^3/uL (1.7-8.2); BAND NEUTROPHILS % (MANUAL) 4 % (3-5); BASOPHILS % (MANUAL) 0 % (0-2); EOSINOPHILS % (MANUAL) 1 % (0-6); LYMPHOCYTES % (MANUAL) 2 % (13-45); METAMYELOCYTES % (MANUAL) 1 % (0); MONOCYTES % (MANUAL) 1 % (3-13); SEGMENTED NEUTROPHILS % (MAN) 91 % (42-78); TOTAL CELLS COUNTED 100
[2017-11-06] MEDS: INSULIN LISPRO 100 UNIT/ML 3 ML VIAL SUBCUT PRN ×3 (08:32→16:36)
[2017-11-06] MEDS: INSULIN LISPRO 100 UNIT/ML 3 ML VIAL SUBCUT SCH ×3 (08:32→16:36)
[2017-11-06 08:34] LABS: ANISOCYTOSIS 1+; HYPOCHROMASIA SLIGHT; PLATELET COMMENT DECREASED; POIKILOCYTOSIS SLIGHT; TEAR DROP CELLS SLIGHT
[2017-11-06 08:37] LABS: PLATELET COUNT 87 10^3/uL (150-450)
[2017-11-06] MEDS: CHOLECALCIFEROL (D3) 400 UNIT TABLET PO SCH (09:20)
[2017-11-06] MEDS: GUAIFENESIN 600 MG TABLET.SA PO SCH ×2 (09:21→23:14)
[2017-11-06] MEDS: DOXAZOSIN MESYLATE 1 MG TABLET PO SCH (09:21)
[2017-11-06] MEDS: ALLOPURINOL 300 MG TABLET PO SCH (09:21)
[2017-11-06] MEDS: DRONEDARONE HYDROCHLORIDE 400 MG TABLET PO SCH ×2 (09:21→23:14)
[2017-11-06] MEDS: DOCUSATE SODIUM 100 MG CAPSULE PO SCH (09:21)
[2017-11-06] MEDS: ASPIRIN 81 MG TABLET, ENT COATED PO SCH (09:21)
[2017-11-06] MEDS: BUDESONIDE/FORMOTEROL 160-4.5 MCG 60 PUFF/6 GM MDI IH SCH ×2 (09:21→23:14)
[2017-11-06] MEDS: RANOLAZINE 500 MG TAB.SR.12H PO SCH ×2 (09:22→23:14)
[2017-11-06] MEDS: ISOSORBIDE MONONITRATE 30 MG TAB.ER.24H PO SCH (09:22)
[2017-11-06] MEDS: METOPROLOL SUCCINATE 50 MG TAB.SR.24H PO SCH (09:22)
[2017-11-06] MEDS: NYSTATIN 500000 UNIT/5 ML UDCUP PO SCH ×4 (09:22→23:13)
[2017-11-06] MEDS: LANSOPRAZOLE 15 MG TAB.RAP.DR PO SCH (09:22)
[2017-11-06] MEDS: PREGABALIN 75 MG CAPSULE PO SCH ×2 (09:22→23:13)
[2017-11-06] MEDS: MULTIVITAMIN TABLET PO SCH (09:22)
[2017-11-06] MEDS: POTASSIUM CHLORIDE 10 MEQ TABLET.SA PO SCH (09:22)
[2017-11-06] MEDS: LACTULOSE SYRUP 20 GM/30 ML UDCUP PO SCH ×2 (09:22→23:13)
[2017-11-06] MEDS: MAGNESIUM OXIDE 400 MG TABLET PO SCH ×2 (09:22→18:22)
[2017-11-06] MEDS: FLUTICASONE NASAL SPRAY 50 MCG/SPRY 120 SPRAY/16 GM NASL SCH ×2 (09:23→23:29)
[2017-11-06] MEDS: TIOTROPIUM BROMIDE DPI 5 CAP/KIT (18 MCG/CAP) IH SCH (09:23)
--- NOTE | 2017-11-06 11:14 | PDOC PROGRESS REPORT ---
Subjective Progress Note for:: 11/06/17 Subjective:: Patient refers that he is breathing and chest congestion is better today. Was able to sleep last night Review of systems All organ systems evaluated and negative except as in subjective All laboratories and significant diagnostics have been reviewed Reason For Visit: COPD EXACERBATION HEART FAILURE EXACERBATION Physical Exam Vital Signs: Temp Pulse Resp BP Pulse Ox 98.3 F 65 16 153/55 H 97 11/06/17 00:09 11/06/17 07:00 11/06/17 01:21 11/06/17 00:09 11/06/17 01:21 Intake & Output 11/05/17 11/06/17 11/07/17 06:59 06:59 06:59 Intake Total 650 128 Balance 650 128 General appearance: PRESENT: no acute distress, cooperative, obese Head exam: PRESENT: atraumatic, normocephalic Eye exam: PRESENT: conjunctiva pink, EOMI, PERRLA Ear exam: PRESENT: normal external ear exam Mouth exam: PRESENT: moist Neck exam: PRESENT: full ROM. ABSENT: JVD, lymphadenopathy, tenderness Respiratory exam: PRESENT: other - Adequate movement of air with soft crackles heard throughout. Movement of air improved when compared to previous assessment Cardiovascular exam: PRESENT: irregular rhythm. ABSENT: diastolic murmur, systolic murmur Vascular exam: PRESENT: normal capillary refill GI/Abdominal exam: PRESENT: normal bowel sounds, soft. ABSENT: tenderness Extremities exam: PRESENT: full ROM. ABSENT: joint swelling, pedal edema Musculoskeletal exam: PRESENT: ambulatory Neurological exam: PRESENT: alert, awake, oriented to person, oriented to place , oriented to time, oriented to situation, CN II-XII grossly intact Psychiatric exam: PRESENT: appropriate affect, normal mood Skin exam: PRESENT: intact, normal color Results Laboratory Results: 11/02/17 06:06 11/04/17 04:34 10/25/17 10/25/17 10/25/17 04:28 04:28 11:04 Creatine Kinase 25 L 22 L CK-MB (CK-2) 1.03 Troponin I < 0.012 NT-Pro-B Natriuret Pep 10/25/17 11/04/17 11:04 04:34 Creatine Kinase CK-MB (CK-2) 0.94 Troponin I 0.013 NT-Pro-B Natriuret Pep 3980 H Impressions: Head CT 10/24/17 16:35 IMPRESSION: CHRONIC CHANGES OF ATROPHY AND MICROVASCULAR ISCHEMIA. NO ACUTE PROCESS. EVIDENCE OF ACUTE STROKE: NO. Chest CT 10/29/17 00:00 IMPRESSION: Patchy consolidation in the medial and posterior basilar segments of the left lower lobe. Minimal ground-glass opacities in the right upper lobe. Chest X-Ray 11/05/17 00:00 IMPRESSION: NO ACUTE CARDIOPULMONARY PROCESS. NO SIGNIFICANT CHANGE FROM PRIOR STUDY. Assessment & Plan - Diagnosis (1) Chronic atrial fibrillation Is this a current diagnosis for this admission?: Yes Plan: Stable. Trend INR (2) Chronic kidney disease, stage 3 Is this a current diagnosis for this admission?: Yes Plan: Stable. Trend since putting him back on bumex oral. (3) DM type 2 (diabetes mellitus, type 2) Qualifiers: Diabetes mellitus complication status: with hyperglycemia Diabetes mellitus mcfp insulin use: with terminal system operator use Qualified Code(s): E11.65 - Type 2 diabetes mellitus with hyperglycemia; Z79.4 - superintendent marine oil terminal (current) use of insulin; Z79.4 - superintendent marine oil terminal (current) use of insulin; Z79.4 - superintendent marine oil terminal ( current) use of insulin; Z79.4 - superintendent marine oil terminal (current) use of insulin Is this a current diagnosis for this admission?: Yes Plan: Continue present treatment. Mildly elevated due to steroids IV. Will hold off any changes since will steroid dose (4) Acute on chronic respiratory failure with hypoxia and hypercapnia Is this a current diagnosis for this admission?: Yes Plan: Acute resolved. 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 Patient fully treated - Time Time Spent with patient: 15-24 minutes Medications reviewed and adjusted accordingly: Yes Anticipated discharge: Home Within: within 48 hours - Inpatient Certification Based on my medical assessment, after consideration of the patient's comorbidities, presenting symptoms, or acuity I expect that the services needed warrant INPATIENT care.: Yes Medical Necessity: Need Close Monitoring Due to Risk of Patient Decompensation, Need for Nebulizer Therapy and Monitoring of Response
[2017-11-06 15:39] LABS: INTERNATIONAL RATION (INR) 2.25; PROTHROMBIN TIME 26.1 SEC (11.4-15.4)
[2017-11-06] MEDS ORDERED: METHYLPREDNISOLONE INJ 40 MG/1 ML SDV IV SCH (22:00)
[2017-11-06] MEDS: MONTELUKAST SODIUM 10 MG TABLET PO SCH (23:13)
[2017-11-06] MEDS: ATORVASTATIN CALCIUM 40 MG TABLET PO SCH (23:13)
[2017-11-06] MEDS: TAMSULOSIN HCL 0.4 MG CAP.SR.24H PO SCH (23:13)
[2017-11-06] MEDS: NITROGLYCERIN 5 MG (0.2 MG/HR) PATCH.TD24 TD SCH (23:14)
[2017-11-06] MEDS: FINASTERIDE 5 MG TABLET PO SCH (23:14)
[2017-11-06] MEDS: WARFARIN SODIUM 2 MG TABLET PO SCH (23:14)
[2017-11-06] MEDS: INSULIN GLARGINE,HUM.REC.ANLOG 300 UNIT/3 ML INSULN.PEN SUBCUT SCH (23:15)
[2017-11-07] MEDS: HYDROCODONE/ACETAMINOPHEN 10-325 MG TABLET PO PRN ×4 (01:07→21:45)
[2017-11-07] MEDS: ACETYLCYSTEINE 10% NEB 400 MG/4 ML VIAL NEB SCH ×4 (01:49→19:47)
[2017-11-07 05:02] LABS: INTERNATIONAL RATION (INR) 2.37; PROTHROMBIN TIME 27.1 SEC (11.4-15.4)
[2017-11-07 05:15] LABS: ALANINE AMINOTRANSFERASE 30 U/L (21-72); ALBUMIN 2.8 g/dL (3.5-5.0); ALKALINE PHOSPHATASE 62 U/L (38-126); ANION GAP 5 (5-19); ASPARTATE AMINO TRANSFERASE 15 U/L (17-59); BILIRUBIN,DIRECT 0.4 mg/dL (0.0-0.4); BILIRUBIN,TOTAL 0.4 mg/dL (0.2-1.3); BLOOD UREA NITROGEN 61 mg/dL (7-20); CALCIUM 8.4 mg/dL (8.4-10.2); CARBON DIOXIDE 30 mmol/L (22-30); CHLORIDE 104 mmol/L (98-107); GLUCOSE 262 mg/dL (75-110); POTASSIUM 5.4 mmol/L (3.6-5.0); SODIUM 139.2 mmol/L (137-145); TOTAL PROTEIN 4.6 g/dL (6.3-8.2)
[2017-11-07] MEDS: HYDRALAZINE HCL 25 MG TABLET PO SCH ×3 (06:32→21:40)
[2017-11-07] MEDS: INSULIN LISPRO 100 UNIT/ML 3 ML VIAL SUBCUT SCH ×3 (07:41→15:25)
[2017-11-07] MEDS: INSULIN LISPRO 100 UNIT/ML 3 ML VIAL SUBCUT PRN ×3 (07:41→15:25)
[2017-11-07] MEDS: IPRATROPIUM/ALBUTEROL 0.5-2.5 MG/3 ML AMPUL NEB PRN ×3 (08:43→19:47)
[2017-11-07] MEDS: ALLOPURINOL 300 MG TABLET PO SCH (09:54)
[2017-11-07] MEDS: DOCUSATE SODIUM 100 MG CAPSULE PO SCH (09:54)
[2017-11-07] MEDS: ISOSORBIDE MONONITRATE 30 MG TAB.ER.24H PO SCH (09:54)
[2017-11-07] MEDS: LACTULOSE SYRUP 20 GM/30 ML UDCUP PO SCH ×2 (09:54→21:41)
[2017-11-07] MEDS: ASPIRIN 81 MG TABLET, ENT COATED PO SCH (09:55)
[2017-11-07] MEDS: GUAIFENESIN 600 MG TABLET.SA PO SCH ×2 (09:55→21:40)
[2017-11-07] MEDS: POTASSIUM CHLORIDE 10 MEQ TABLET.SA PO SCH (09:55)
[2017-11-07] MEDS: LANSOPRAZOLE 15 MG TAB.RAP.DR PO SCH (09:55)
[2017-11-07] MEDS: METOPROLOL SUCCINATE 50 MG TAB.SR.24H PO SCH (09:56)
[2017-11-07] MEDS: MULTIVITAMIN TABLET PO SCH (09:56)
[2017-11-07] MEDS: BUMETANIDE 1 MG TABLET PO SCH (09:56)
[2017-11-07] MEDS: TIOTROPIUM BROMIDE DPI 5 CAP/KIT (18 MCG/CAP) IH SCH (09:57)
[2017-11-07] MEDS: PREDNISONE 10 MG TABLET PO SCH ×2 (09:57→17:16)
[2017-11-07] MEDS: MAGNESIUM OXIDE 400 MG TABLET PO SCH ×2 (09:57→17:16)
[2017-11-07] MEDS: PREGABALIN 75 MG CAPSULE PO SCH ×2 (09:57→21:44)
[2017-11-07] MEDS: BUDESONIDE/FORMOTEROL 160-4.5 MCG 60 PUFF/6 GM MDI IH SCH ×2 (09:57→21:40)
[2017-11-07] MEDS: RANOLAZINE 500 MG TAB.SR.12H PO SCH ×2 (09:58→21:44)
[2017-11-07] MEDS: CHOLECALCIFEROL (D3) 400 UNIT TABLET PO SCH (09:58)
[2017-11-07] MEDS: DRONEDARONE HYDROCHLORIDE 400 MG TABLET PO SCH ×2 (09:59→21:40)
[2017-11-07] MEDS: DOXAZOSIN MESYLATE 1 MG TABLET PO SCH (09:59)
[2017-11-07] MEDS: FLUTICASONE NASAL SPRAY 50 MCG/SPRY 120 SPRAY/16 GM NASL SCH ×2 (10:00→21:52)
[2017-11-07] MEDS: NYSTATIN 500000 UNIT/5 ML UDCUP PO SCH ×4 (10:00→21:44)
[2017-11-07 15:35] LABS: INTERNATIONAL RATION (INR) 2.83; PROTHROMBIN TIME 31.1 SEC (11.4-15.4)
--- NOTE | 2017-11-07 17:35 | PDOC PROGRESS REPORT ---
Subjective Progress Note for:: 11/07/17 Subjective:: She was having some chest congestion and wheezing earlier today. Steroids have been added and he is receiving bronchodilator therapy. He feels better. He is extremely fatigued today. Otherwise no new chest pain. No fevers or chills. Eating and drinking without difficulty. Urinating without difficulty. Had a BM today. No headache or vision changes. No anxiety. View of systems: Review of systems as per subjective, other systems reviewed and negative. Labs have been reviewed by me, pertinent nonstick studies have also been reviewed. Reason For Visit: COPD EXACERBATION HEART FAILURE EXACERBATION Physical Exam Vital Signs: Temp Pulse Resp BP Pulse Ox 97.7 F 66 20 112/43 L 93 11/07/17 16:00 11/07/17 16:00 11/07/17 16:00 11/07/17 16:00 11/07/17 16:00 Intake & Output 11/06/17 11/07/17 11/08/17 06:59 06:59 06:59 Intake Total 128 968 400 Balance 128 968 400 General appearance: PRESENT: no acute distress, cooperative Head exam: PRESENT: atraumatic, normocephalic Eye exam: PRESENT: conjunctiva pink, EOMI Ear exam: PRESENT: normal external ear exam. ABSENT: bleeding Mouth exam: PRESENT: moist, neck supple Respiratory exam: PRESENT: decreased breath sounds, rales, symmetrical, unlabored, wheezes. ABSENT: accessory muscle use, tachypnea Cardiovascular exam: PRESENT: irregular rhythm. ABSENT: bradycardia, tachycardia Pulses: PRESENT: normal radial pulses GI/Abdominal exam: PRESENT: normal bowel sounds, soft. 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 Musculoskeletal exam: PRESENT: ambulatory Neurological exam: PRESENT: alert, awake, oriented to person, oriented to place , oriented to situation, CN II-XII grossly intact Psychiatric exam: PRESENT: appropriate affect. ABSENT: anxious Skin exam: PRESENT: dry, warm Results Laboratory Results: 11/06/17 06:45 11/07/17 04:10 11/07/17 11/07/17 04:10 04:10 Sodium 139.2 Potassium 5.4 H Chloride 104 Carbon Dioxide 30 Anion Gap 5 BUN 61 H Creatinine 1.69 H Est GFR ( Amer) 48 L Est GFR (Non-Af Amer) 39 L Glucose 262 H Calcium 8.4 Magnesium 2.1 Total Bilirubin 0.4 AST 15 L ALT 30 Alkaline Phosphatase 62 Total Protein 4.6 L Albumin 2.8 L 10/25/17 10/25/17 10/25/17 04:28 04:28 11:04 Creatine Kinase 25 L 22 L CK-MB (CK-2) 1.03 Troponin I < 0.012 NT-Pro-B Natriuret Pep 10/25/17 11/04/17 11:04 04:34 Creatine Kinase CK-MB (CK-2) 0.94 Troponin I 0.013 NT-Pro-B Natriuret Pep 3980 H Impressions: Head CT 10/24/17 16:35 IMPRESSION: CHRONIC CHANGES OF ATROPHY AND MICROVASCULAR ISCHEMIA. NO ACUTE PROCESS. EVIDENCE OF ACUTE STROKE: NO. Chest CT 10/29/17 00:00 IMPRESSION: Patchy consolidation in the medial and posterior basilar segments of the left lower lobe. Minimal ground-glass opacities in the right upper lobe. Chest X-Ray 11/05/17 00:00 IMPRESSION: NO ACUTE CARDIOPULMONARY PROCESS. NO SIGNIFICANT CHANGE FROM PRIOR STUDY. Assessment & Plan - Diagnosis (1) Acute and chronic respiratory failure Qualifiers: Respiratory failure complication: hypoxia and hypercapnia Qualified Code(s) : J96.21 - Acute and chronic respiratory failure with hypoxia; J96.22 - Acute and chronic respiratory failure with hypercapnia; J96.22 - Acute and chronic respiratory failure with hypercapnia; J96.22 - Acute and chronic respiratory failure with hypercapnia Is this a current diagnosis for this admission?: Yes Plan: Overall much improved. Patient is now on bronchodilators and steroids. He has been treated for community-acquired pneumonia. (2) CHF exacerbation Qualifiers: Congestive heart failure type: combined Qualified Code(s): I50.43 - Acute on chronic combined systolic (congestive) and diastolic (congestive) heart failure Is this a current diagnosis for this admission?: Yes Plan: He is back on Bumex. He is also back on all of his cardiac meds. He seems to be optimized on his cardiac regimen. Monitor renal function. (3) Chronic atrial fibrillation Is this a current diagnosis for this admission?: Yes (4) Chronic kidney disease, stage 3 Is this a current diagnosis for this admission?: Yes Plan: We will monitor renal function now that he is back on his Bumex. Avoid nephrotoxins as we are able. (5) Community acquired pneumonia Qualifiers: Laterality: right Lung location: unspecified part of lung Qualified Code( s): J18.9 - Pneumonia, unspecified organism Is this a current diagnosis for this admission?: Yes Plan: Treated. Patient improving. (6) DM type 2 (diabetes mellitus, type 2) Qualifiers: Diabetes mellitus complication status: with hyperglycemia Diabetes mellitus mcfp insulin use: with terminal supervisor use Qualified Code(s): E11.65 - Type 2 diabetes mellitus with hyperglycemia; Z79.4 - keno terminal operator (current) use of insulin; Z79.4 - nursing home (current) use of insulin; Z79.4 - keno terminal operator ( current) use of insulin; Z79.4 - nursing home (current) use of insulin Is this a current diagnosis for this admission?: Yes Plan: Continue current regimen. - Time Time Spent with patient: 25-34 minutes Anticipated discharge: Home Within: within 24 hours - Inpatient Certification Based on my medical assessment, after consideration of the patient's comorbidities, presenting symptoms, or acuity I expect that the services needed warrant INPATIENT care.: Yes I certify that my determination is in accordance with my understanding of Medicare's requirements for reasonable and necessary INPATIENT services [42 CFR 412.3e].: Yes Medical Necessity: Significant Comorbidiites Make Outpatient Treatment Too Risky , Need Close Monitoring Due to Risk of Patient Decompensation, Need for Nebulizer Therapy and Monitoring of Response
[2017-11-07] MEDS: FINASTERIDE 5 MG TABLET PO SCH (21:40)
[2017-11-07] MEDS: ATORVASTATIN CALCIUM 40 MG TABLET PO SCH (21:40)
[2017-11-07] MEDS: MONTELUKAST SODIUM 10 MG TABLET PO SCH (21:42)
[2017-11-07] MEDS: NITROGLYCERIN 5 MG (0.2 MG/HR) PATCH.TD24 TD SCH (21:43)
[2017-11-07] MEDS: TAMSULOSIN HCL 0.4 MG CAP.SR.24H PO SCH (21:44)
[2017-11-07] MEDS: WARFARIN SODIUM 2 MG TABLET PO SCH (21:44)
[2017-11-07] MEDS: INSULIN GLARGINE,HUM.REC.ANLOG 300 UNIT/3 ML INSULN.PEN SUBCUT SCH (21:47)
[2017-11-08] MEDS: ACETYLCYSTEINE 10% NEB 400 MG/4 ML VIAL NEB SCH ×4 (02:24→20:09)
[2017-11-08] MEDS: HYDROCODONE/ACETAMINOPHEN 10-325 MG TABLET PO PRN ×3 (03:35→16:33)
[2017-11-08] MEDS: HYDRALAZINE HCL 25 MG TABLET PO SCH ×2 (05:08→14:41)
[2017-11-08] MEDS: INSULIN LISPRO 100 UNIT/ML 3 ML VIAL SUBCUT PRN ×2 (07:51→16:33)
[2017-11-08] MEDS: INSULIN LISPRO 100 UNIT/ML 3 ML VIAL SUBCUT SCH ×3 (07:51→16:33)
[2017-11-08] MEDS: IPRATROPIUM/ALBUTEROL 0.5-2.5 MG/3 ML AMPUL NEB PRN ×3 (08:57→20:09)
[2017-11-08] MEDS: ISOSORBIDE MONONITRATE 30 MG TAB.ER.24H PO SCH (10:02)
[2017-11-08] MEDS: LACTULOSE SYRUP 20 GM/30 ML UDCUP PO SCH (10:02)
[2017-11-08] MEDS: GUAIFENESIN 600 MG TABLET.SA PO SCH (10:03)
[2017-11-08] MEDS: BUMETANIDE 1 MG TABLET PO SCH (10:03)
[2017-11-08] MEDS: METOPROLOL SUCCINATE 50 MG TAB.SR.24H PO SCH (10:04)
[2017-11-08] MEDS: MAGNESIUM OXIDE 400 MG TABLET PO SCH ×2 (10:05→17:45)
[2017-11-08] MEDS: POTASSIUM CHLORIDE 10 MEQ TABLET.SA PO SCH (10:05)
[2017-11-08] MEDS: PREDNISONE 10 MG TABLET PO SCH ×2 (10:05→17:45)
[2017-11-08] MEDS: PREGABALIN 75 MG CAPSULE PO SCH (10:05)
[2017-11-08] MEDS: LANSOPRAZOLE 15 MG TAB.RAP.DR PO SCH (10:06)
[2017-11-08] MEDS: DRONEDARONE HYDROCHLORIDE 400 MG TABLET PO SCH (10:06)
[2017-11-08] MEDS: ASPIRIN 81 MG TABLET, ENT COATED PO SCH (10:06)
[2017-11-08] MEDS: DOCUSATE SODIUM 100 MG CAPSULE PO SCH (10:06)
[2017-11-08] MEDS: ALLOPURINOL 300 MG TABLET PO SCH (10:06)
[2017-11-08] MEDS: BUDESONIDE/FORMOTEROL 160-4.5 MCG 60 PUFF/6 GM MDI IH SCH (10:06)
[2017-11-08] MEDS: RANOLAZINE 500 MG TAB.SR.12H PO SCH (10:07)
[2017-11-08] MEDS: CHOLECALCIFEROL (D3) 400 UNIT TABLET PO SCH (10:07)
[2017-11-08] MEDS: DOXAZOSIN MESYLATE 1 MG TABLET PO SCH (10:07)
[2017-11-08] MEDS: MULTIVITAMIN TABLET PO SCH (10:08)
[2017-11-08] MEDS: TIOTROPIUM BROMIDE DPI 5 CAP/KIT (18 MCG/CAP) IH SCH (10:08)
[2017-11-08 10:09] LABS: BLOOD UREA NITROGEN 70 mg/dL (7-20); CALCIUM 9.2 mg/dL (8.4-10.2); CARBON DIOXIDE 31 mmol/L (22-30); GLUCOSE 92 mg/dL (75-110); MAGNESIUM 2.2 mg/dL (1.6-2.3); POTASSIUM 4.6 mmol/L (3.6-5.0)
[2017-11-08] MEDS: FLUTICASONE NASAL SPRAY 50 MCG/SPRY 120 SPRAY/16 GM NASL SCH ×2 (10:14→22:03)
[2017-11-08] MEDS: NYSTATIN 500000 UNIT/5 ML UDCUP PO SCH ×3 (10:14→18:09)
[2017-11-08 10:22] LABS: CHLORIDE 108 mmol/L (98-107); SODIUM 142.8 mmol/L (137-145)
[2017-11-08 10:25] LABS: ANION GAP 4 (5-19)
[2017-11-08 11:29] LABS: INTERNATIONAL RATION (INR) 2.76; PROTHROMBIN TIME 30.5 SEC (11.4-15.4)
[2017-11-08] MEDS ORDERED: BUMETANIDE 1 MG TABLET PO ONE (15:00)
--- NOTE | 2017-11-08 16:38 | PDOC PROGRESS REPORT ---
Subjective Progress Note for:: 11/08/17 Subjective:: pt still feels swollen, right arm has started to really ache since he was working out with bands 2 days ago, there is some new bruising in the painful area on the right arm. his breathing is better, coughing less, no new chest pain. Not anxious. Other ROS performed and not concerning. Labs and pertinent diagnostic studies have been reviewed by me today. Reason For Visit: COPD EXACERBATION, HEART FAILURE EXACERBATION, right arm pain, anasarca Physical Exam Vital Signs: Temp Pulse Resp BP Pulse Ox 97.6 F 60 16 116/49 L 97 11/08/17 12:00 11/08/17 14:09 11/08/17 14:09 11/08/17 12:00 11/08/17 14:09 Intake & Output 11/07/17 11/08/17 11/09/17 06:59 06:59 06:59 Intake Total 968 400 Balance 968 400 General appearance: PRESENT: no acute distress, cooperative, obese Head exam: PRESENT: atraumatic, normocephalic Eye exam: PRESENT: conjunctiva pink. ABSENT: scleral icterus Ear exam: PRESENT: normal external ear exam. ABSENT: bleeding Mouth exam: PRESENT: moist, neck supple Neck exam: ABSENT: lymphadenopathy Respiratory exam: PRESENT: decreased breath sounds, rales. ABSENT: accessory muscle use, tachypnea, unlabored, wheezes Cardiovascular exam: PRESENT: RRR. ABSENT: tachycardia Pulses: PRESENT: normal radial pulses Vascular exam: PRESENT: normal capillary refill GI/Abdominal exam: PRESENT: normal bowel sounds, soft. 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, pt has pitting edema in right leg, up into abdominal wall Musculoskeletal exam: PRESENT: ambulatory Neurological exam: PRESENT: alert, awake, oriented to person, oriented to place , oriented to situation, CN II-XII grossly intact Psychiatric exam: ABSENT: agitated, anxious, depressed, flat affect Skin exam: PRESENT: dry, intact, warm, other - multiple eccymoses over right arm , tenderness to palpation over right distal arm, pulses in tact Results Laboratory Results: 11/06/17 06:45 11/08/17 09:19 11/08/17 09:19 Sodium 142.8 Potassium 4.6 Chloride 108 H Carbon Dioxide 31 H Anion Gap 4 L BUN 70 H Creatinine 1.88 H Est GFR ( Amer) 42 L Est GFR (Non-Af Amer) 35 L Glucose 92 Calcium 9.2 Magnesium 2.2 10/25/17 10/25/17 10/25/17 04:28 04:28 11:04 Creatine Kinase 25 L 22 L CK-MB (CK-2) 1.03 Troponin I < 0.012 NT-Pro-B Natriuret Pep 10/25/17 11/04/17 11:04 04:34 Creatine Kinase CK-MB (CK-2) 0.94 Troponin I 0.013 NT-Pro-B Natriuret Pep 3980 H Impressions: Head CT 10/24/17 16:35 IMPRESSION: CHRONIC CHANGES OF ATROPHY AND MICROVASCULAR ISCHEMIA. NO ACUTE PROCESS. EVIDENCE OF ACUTE STROKE: NO. Chest CT 10/29/17 00:00 IMPRESSION: Patchy consolidation in the medial and posterior basilar segments of the left lower lobe. Minimal ground-glass opacities in the right upper lobe. Chest X-Ray 11/05/17 00:00 IMPRESSION: NO ACUTE CARDIOPULMONARY PROCESS. NO SIGNIFICANT CHANGE FROM PRIOR STUDY. Assessment & Plan - Diagnosis (1) Acute and chronic respiratory failure Qualifiers: Respiratory failure complication: hypoxia and hypercapnia Qualified Code(s) : J96.21 - Acute and chronic respiratory failure with hypoxia; J96.22 - Acute and chronic respiratory failure with hypercapnia; J96.22 - Acute and chronic respiratory failure with hypercapnia; J96.22 - Acute and chronic respiratory failure with hypercapnia Is this a current diagnosis for this admission?: Yes Plan: improving with tx of underlying conditions (2) CHF exacerbation Qualifiers: Congestive heart failure type: combined Qualified Code(s): I50.43 - Acute on chronic combined systolic (congestive) and diastolic (congestive) heart failure Is this a current diagnosis for this admission?: Yes Plan: will start to diuresis pt more vigorously, a bit difficult in that we cant place an IV, so will continue with po bumex and follow I and O. If not effective may have to consider PICC for better diuresis with IV diuretic. Cont cardiac meds. (3) Chronic atrial fibrillation Is this a current diagnosis for this admission?: Yes Plan: rate controlled, INR 2-3,, cont to follow (4) Chronic kidney disease, stage 3 Is this a current diagnosis for this admission?: Yes Plan: BUN and creatinine up today and I think this (5) DM type 2 (diabetes mellitus, type 2) Qualifiers: Diabetes mellitus complication status: with hyperglycemia Diabetes mellitus terminal block assembler insulin use: with terminal block assembler use Qualified Code(s): E11.65 - Type 2 diabetes mellitus with hyperglycemia; Z79.4 - skilled nursing (current) use of insulin; Z79.4 - intermodal dispatcher (current) use of insulin; Z79.4 - skilled nursing ( current) use of insulin; Z79.4 - intermodal dispatcher (current) use of insulin Is this a current diagnosis for this admission?: Yes Plan: stable, cont humulog and glargine (6) Acute pain Is this a current diagnosis for this admission?: Yes Plan: right upper extremity pain that started a few days ago after he was working with him exercise equipment in his room. Pain has worsened. I have ordered an ultrasound of his right upper extremity, to evaluate for possible bleed. We have also ordered a right upper extremity venous duplex to rule out clot though that is unlikely as he is anticoagulated with warfarin. - Time Time Spent with patient: 35 or more minutes - Inpatient Certification Medical Necessity: Significant Comorbidiites Make Outpatient Treatment Too Risky , Need Close Monitoring Due to Risk of Patient Decompensation, Risk of Complication if Not Cared For in Hospital
--- NOTE | 2017-11-08 17:14 | RADIOLOGY REPORT (SQ) ---
EXAM DESCRIPTION: U/S EXTREMITY NONVASCULAR COMP COMPLETED DATE/TIME: 11/08/2017 5:03 pm REASON FOR STUDY: right distal arm pain COMPARISON: None. TECHNIQUE: Static and real time chandler scale ultrasound Doppler spectral analysis, and color Doppler a cquired of the right forearm LIMITATIONS: None. FINDINGS: In the right forearm soft tissues, there is a hematoma dissecting between muscle planes al kathryn the palmar aspect of the distal 3rd forearm. Muscle injury along the flexor compartment, with he matoma along the muscle tear is possible. Hematoma measures 3 x 1.6 x 1.1 cm in size. This correlat es with the area of patient's pain. IMPRESSION: Distal right forearm soft tissue hematoma between muscles along the flexor compartment. Muscle tear may be present. TECHNICAL DOCUMENTATION: JOB ID: [id number] [employer]- All Rights Reserved
[2017-11-09] MEDS: HYDROCODONE/ACETAMINOPHEN 10-325 MG TABLET PO PRN ×4 (00:09→19:11)
[2017-11-09] MEDS: ATORVASTATIN CALCIUM 40 MG TABLET PO SCH ×2 (00:10→22:38)
[2017-11-09] MEDS: BUDESONIDE/FORMOTEROL 160-4.5 MCG 60 PUFF/6 GM MDI IH SCH ×3 (00:12→22:40)
[2017-11-09] MEDS: DRONEDARONE HYDROCHLORIDE 400 MG TABLET PO SCH ×3 (00:12→22:41)
[2017-11-09] MEDS: GUAIFENESIN 600 MG TABLET.SA PO SCH ×3 (00:13→22:37)
[2017-11-09] MEDS: FINASTERIDE 5 MG TABLET PO SCH ×2 (00:13→22:37)
[2017-11-09] MEDS: HYDRALAZINE HCL 25 MG TABLET PO SCH ×4 (00:14→22:38)
[2017-11-09] MEDS: INSULIN GLARGINE,HUM.REC.ANLOG 300 UNIT/3 ML INSULN.PEN SUBCUT SCH ×2 (00:15→22:41)
[2017-11-09] MEDS: MONTELUKAST SODIUM 10 MG TABLET PO SCH ×2 (00:15→22:37)
[2017-11-09] MEDS: LACTULOSE SYRUP 20 GM/30 ML UDCUP PO SCH ×3 (00:15→22:40)
[2017-11-09] MEDS: NITROGLYCERIN 5 MG (0.2 MG/HR) PATCH.TD24 TD SCH ×2 (00:15→22:40)
[2017-11-09] MEDS: WARFARIN SODIUM 2 MG TABLET PO SCH ×2 (00:17→22:38)
[2017-11-09] MEDS: PREGABALIN 75 MG CAPSULE PO SCH ×3 (00:17→22:38)
[2017-11-09] MEDS: TAMSULOSIN HCL 0.4 MG CAP.SR.24H PO SCH ×2 (00:17→22:37)
[2017-11-09] MEDS: RANOLAZINE 500 MG TAB.SR.12H PO SCH ×3 (00:18→22:41)
[2017-11-09] MEDS: NYSTATIN 500000 UNIT/5 ML UDCUP PO SCH ×5 (00:21→22:40)
[2017-11-09] MEDS: ACETYLCYSTEINE 10% NEB 400 MG/4 ML VIAL NEB SCH ×4 (02:34→20:57)
[2017-11-09] MEDS: IPRATROPIUM/ALBUTEROL 0.5-2.5 MG/3 ML AMPUL NEB PRN ×2 (02:34→08:53)
--- NOTE | 2017-11-09 09:09 | XCELERA REPORT ---
[address] [address] Upper Extremity Venous Evaluation Name: TRUONG PINK Age: 77 yrs Gender: Male : 1940 Patient Status: Inpatient Patient Location: [address] [place] [address] Study Date: 11/08/2017 02:19 PM Procedure: Unilateral duplex scan of the right upper extremity veins was performed, including responses to compression and other maneuvers. Reason For Study: right upper extremity venous duplex, arm pain/kathleen Ordering Physician: ALIRIO SERRATO Performed By: Sahra Osborne Right Side Venous Evaluation Abnormal filling of a short segment of the Cephalic vein, Otherwise normal vessel filling wall to wall, compression and augmentation as well as Colour flow down to the forearm veins. Interpretation Summary Negative for DVT in the Right upper extremity. Limited superficial phlebitis noted. : ALIRIO SERRATO > David Morel
[2017-11-09] MEDS: INSULIN LISPRO 100 UNIT/ML 3 ML VIAL SUBCUT SCH ×3 (09:57→18:13)
[2017-11-09] MEDS: INSULIN LISPRO 100 UNIT/ML 3 ML VIAL SUBCUT PRN ×3 (09:57→22:41)
[2017-11-09] MEDS: DOXAZOSIN MESYLATE 1 MG TABLET PO SCH (09:59)
[2017-11-09] MEDS: MULTIVITAMIN TABLET PO SCH (09:59)
[2017-11-09] MEDS: CHOLECALCIFEROL (D3) 400 UNIT TABLET PO SCH (09:59)
[2017-11-09] MEDS: BUMETANIDE 1 MG TABLET PO SCH ×2 (10:03→18:15)
[2017-11-09] MEDS: ASPIRIN 81 MG TABLET, ENT COATED PO SCH (10:03)
[2017-11-09] MEDS: METOPROLOL SUCCINATE 50 MG TAB.SR.24H PO SCH (10:03)
[2017-11-09] MEDS: POTASSIUM CHLORIDE 10 MEQ TABLET.SA PO SCH (10:04)
[2017-11-09] MEDS: ALLOPURINOL 300 MG TABLET PO SCH (10:04)
[2017-11-09] MEDS: LANSOPRAZOLE 15 MG TAB.RAP.DR PO SCH (10:04)
[2017-11-09] MEDS: ISOSORBIDE MONONITRATE 30 MG TAB.ER.24H PO SCH (10:04)
[2017-11-09] MEDS: MAGNESIUM OXIDE 400 MG TABLET PO SCH ×2 (10:05→18:14)
[2017-11-09] MEDS: PREDNISONE 10 MG TABLET PO SCH ×2 (10:05→18:14)
[2017-11-09] MEDS: DOCUSATE SODIUM 100 MG CAPSULE PO SCH (10:05)
[2017-11-09 10:51] LABS: ANION GAP 7 (5-19); BLOOD UREA NITROGEN 72 mg/dL (7-20); CALCIUM 8.7 mg/dL (8.4-10.2); CARBON DIOXIDE 31 mmol/L (22-30); CHLORIDE 107 mmol/L (98-107); GLUCOSE 75 mg/dL (75-110); MAGNESIUM 2.1 mg/dL (1.6-2.3); POTASSIUM 4.6 mmol/L (3.6-5.0); SODIUM 144.8 mmol/L (137-145)
[2017-11-09] MEDS: FLUTICASONE NASAL SPRAY 50 MCG/SPRY 120 SPRAY/16 GM NASL SCH ×2 (12:14→22:20)
[2017-11-09] MEDS: TIOTROPIUM BROMIDE DPI 5 CAP/KIT (18 MCG/CAP) IH SCH (13:09)
--- NOTE | 2017-11-09 16:02 | PDOC PROGRESS REPORT ---
Subjective Progress Note for:: 11/09/17 Subjective:: Mr. Heredia is breathing significantly better with extra dose of the max. He feels that overall his swelling has improved. His right arm pain is improving. He has not lost sensation but no tingling or numbness. No new chest pain. No headache or vision changes. No depression or anxiety. Manger of review of systems is performed and is negative. His laboratory tests and diagnostic studies which are pertinent have been reviewed by me today. I discussed the results of his studies with him today. Reason For Visit: COPD EXACERBATION HEART FAILURE EXACERBATION Physical Exam Vital Signs: Temp Pulse Resp BP Pulse Ox 97.3 F 80 18 131/49 H 98 11/09/17 08:00 11/09/17 08:53 11/09/17 08:53 11/09/17 08:00 11/09/17 08:53 Intake & Output 11/08/17 11/09/17 11/10/17 06:59 06:59 06:59 Intake Total 400 420 Balance 400 420 Weight 114.1 kg General appearance: PRESENT: no acute distress, cooperative, obese Head exam: PRESENT: atraumatic, normocephalic Eye exam: PRESENT: conjunctiva pink. ABSENT: scleral icterus Mouth exam: PRESENT: moist, neck supple Neck exam: ABSENT: lymphadenopathy Respiratory exam: PRESENT: rales - Rales in the bilateral bases. Rhonchi have improved. Unlabored breathing. Cardiovascular exam: PRESENT: RRR, systolic murmur GI/Abdominal exam: PRESENT: normal bowel sounds, soft. ABSENT: distended, guarding, tenderness Rectal exam: PRESENT: deferred Extremities exam: PRESENT: pedal edema, other - Patient has anasarca. He has pitting edema through all the extremities and into the abdominal wall and sacrum. Musculoskeletal exam: PRESENT: ambulatory, other - Status post well-healed left BKA with prosthetic leg in place. Neurological exam: PRESENT: alert, awake, oriented to person, oriented to place , oriented to situation, CN II-XII grossly intact Psychiatric exam: PRESENT: normal mood. ABSENT: anxious, depressed Skin exam: PRESENT: dry - Patient has multiple areas of ecchymoses over his bilateral arms. In particular the right distal arm has ecchymoses in the area of what we now know is a muscle tear with a hematoma within., warm Results Laboratory Results: 11/06/17 06:45 11/09/17 10:19 11/09/17 10:19 Sodium 144.8 Potassium 4.6 Chloride 107 Carbon Dioxide 31 H Anion Gap 7 BUN 72 H Creatinine 1.83 H Est GFR ( Amer) 43 L Est GFR (Non-Af Amer) 36 L Glucose 75 Calcium 8.7 Magnesium 2.1 10/25/17 10/25/17 10/25/17 04:28 04:28 11:04 Creatine Kinase 25 L 22 L CK-MB (CK-2) 1.03 Troponin I < 0.012 NT-Pro-B Natriuret Pep 10/25/17 11/04/17 11:04 04:34 Creatine Kinase CK-MB (CK-2) 0.94 Troponin I 0.013 NT-Pro-B Natriuret Pep 3980 H Impressions: Head CT 10/24/17 16:35 IMPRESSION: CHRONIC CHANGES OF ATROPHY AND MICROVASCULAR ISCHEMIA. NO ACUTE PROCESS. EVIDENCE OF ACUTE STROKE: NO. Chest CT 10/29/17 00:00 IMPRESSION: Patchy consolidation in the medial and posterior basilar segments of the left lower lobe. Minimal ground-glass opacities in the right upper lobe. Chest X-Ray 11/05/17 00:00 IMPRESSION: NO ACUTE CARDIOPULMONARY PROCESS. NO SIGNIFICANT CHANGE FROM PRIOR STUDY. Extremity Ultrasound 11/08/17 00:00 IMPRESSION: Distal right forearm soft tissue hematoma between muscles along the flexor compartment. Muscle tear may be present. Assessment & Plan - Diagnosis (1) Acute and chronic respiratory failure Qualifiers: Respiratory failure complication: hypoxia and hypercapnia Qualified Code(s) : J96.21 - Acute and chronic respiratory failure with hypoxia; J96.22 - Acute and chronic respiratory failure with hypercapnia; J96.22 - Acute and chronic respiratory failure with hypercapnia; J96.22 - Acute and chronic respiratory failure with hypercapnia Is this a current diagnosis for this admission?: Yes Plan: Patient is respiratory failure acute is returning back to his chronic baseline. More diuresis is indicated at this time. (2) CHF exacerbation Qualifiers: Congestive heart failure type: combined Qualified Code(s): I50.43 - Acute on chronic combined systolic (congestive) and diastolic (congestive) heart failure Is this a current diagnosis for this admission?: Yes Plan: Patient has anasarca. We will continue with Bumex 2 mg p.o. twice daily. (3) Chronic atrial fibrillation Is this a current diagnosis for this admission?: Yes Plan: Stable. INR is within the 2-3 range. No med changes to be made today. He has had a bleeding complication related anticoagulation. He has a right distal arm muscle tear after working out with bands in his room. (4) Chronic kidney disease, stage 3 Is this a current diagnosis for this admission?: Yes Plan: Renal function appears to be stable. We will recheck again tomorrow as we are increasing diuresis. (5) DM type 2 (diabetes mellitus, type 2) Qualifiers: Diabetes mellitus complication status: with hyperglycemia Diabetes mellitus halfway insulin use: with halfway use Qualified Code(s): E11.65 - Type 2 diabetes mellitus with hyperglycemia; Z79.4 - shelter (current) use of insulin; Z79.4 - exterminator (current) use of insulin; Z79.4 - exterminator ( current) use of insulin; Z79.4 - exterminator (current) use of insulin Is this a current diagnosis for this admission?: Yes (6) Acute pain Is this a current diagnosis for this admission?: Yes (7) Muscle tear Plan: Neurovascular checks were normal through the night. His symptoms are improving. Radial pulse is intact and no tingling or numbness. Will DC neurovascular checks. (8) Hematoma, nontraumatic, soft tissue Plan: Please see above plan for muscle tear. - Time Time Spent with patient: 35 or more minutes Anticipated discharge: Home with Homehealth Within: within 48 hours - Inpatient Certification Medical Necessity: Significant Comorbidiites Make Outpatient Treatment Too Risky , Need Close Monitoring Due to Risk of Patient Decompensation, Risk of Complication if Not Cared For in Hospital
[2017-11-10] MEDS: ACETYLCYSTEINE 10% NEB 400 MG/4 ML VIAL NEB SCH ×4 (01:44→19:44)
[2017-11-10] MEDS: HYDRALAZINE HCL 25 MG TABLET PO SCH ×3 (05:39→23:44)
[2017-11-10] MEDS: HYDROCODONE/ACETAMINOPHEN 10-325 MG TABLET PO PRN ×3 (05:39→19:29)
[2017-11-10 06:20] LABS: INTERNATIONAL RATION (INR) 2.95; PROTHROMBIN TIME 32.1 SEC (11.4-15.4)
[2017-11-10 06:33] LABS: ANION GAP 7 (5-19); BLOOD UREA NITROGEN 66 mg/dL (7-20); CALCIUM 8.6 mg/dL (8.4-10.2); CARBON DIOXIDE 30 mmol/L (22-30); CHLORIDE 105 mmol/L (98-107); GLUCOSE 278 mg/dL (75-110); MAGNESIUM 1.9 mg/dL (1.6-2.3); POTASSIUM 4.2 mmol/L (3.6-5.0); SODIUM 141.7 mmol/L (137-145)
[2017-11-10 08:49] LABS: HEMATOCRIT 31.5 % (37.9-51.0); HEMOGLOBIN 10.7 g/dL (13.5-17.0); MEAN CORPUSCULAR HEMOGLOBIN 31.5 pg (27.0-33.4); MEAN CORPUSCULAR HGB CONC 33.8 g/dL (32.0-36.0); MEAN CORPUSCULAR VOLUME 93 fl (80-97); RED BLOOD COUNT 3.39 10^6/uL (4.35-5.55); RED CELL DISTRIBUTION WIDTH 17.7 % (11.5-14.0); WHITE BLOOD COUNT 9.3 10^3/uL (4.0-10.5)
[2017-11-10] MEDS: INSULIN LISPRO 100 UNIT/ML 3 ML VIAL SUBCUT PRN ×3 (09:04→19:30)
[2017-11-10] MEDS: INSULIN LISPRO 100 UNIT/ML 3 ML VIAL SUBCUT SCH ×3 (09:04→19:30)
[2017-11-10] MEDS: LACTULOSE SYRUP 20 GM/30 ML UDCUP PO SCH ×2 (09:04→23:45)
[2017-11-10] MEDS: BUDESONIDE/FORMOTEROL 160-4.5 MCG 60 PUFF/6 GM MDI IH SCH ×2 (09:06→23:47)
[2017-11-10] MEDS: TIOTROPIUM BROMIDE DPI 5 CAP/KIT (18 MCG/CAP) IH SCH (09:06)
[2017-11-10] MEDS: PREGABALIN 75 MG CAPSULE PO SCH ×2 (09:07→23:44)
[2017-11-10] MEDS: BUMETANIDE 1 MG TABLET PO SCH ×2 (09:08→17:43)
[2017-11-10] MEDS: ISOSORBIDE MONONITRATE 30 MG TAB.ER.24H PO SCH (09:08)
[2017-11-10] MEDS: ALLOPURINOL 300 MG TABLET PO SCH (09:09)
[2017-11-10] MEDS: GUAIFENESIN 600 MG TABLET.SA PO SCH ×2 (09:09→23:44)
[2017-11-10] MEDS: METOPROLOL SUCCINATE 50 MG TAB.SR.24H PO SCH (09:10)
[2017-11-10] MEDS: MULTIVITAMIN TABLET PO SCH (09:10)
[2017-11-10] MEDS: MAGNESIUM OXIDE 400 MG TABLET PO SCH ×2 (09:10→17:44)
[2017-11-10] MEDS: PREDNISONE 10 MG TABLET PO SCH (09:10)
[2017-11-10] MEDS: POTASSIUM CHLORIDE 10 MEQ TABLET.SA PO SCH (09:11)
[2017-11-10] MEDS: LANSOPRAZOLE 15 MG TAB.RAP.DR PO SCH (09:11)
[2017-11-10] MEDS: CHOLECALCIFEROL (D3) 400 UNIT TABLET PO SCH (09:11)
[2017-11-10] MEDS: ASPIRIN 81 MG TABLET, ENT COATED PO SCH (09:11)
[2017-11-10] MEDS: DOCUSATE SODIUM 100 MG CAPSULE PO SCH (09:11)
[2017-11-10] MEDS: RANOLAZINE 500 MG TAB.SR.12H PO SCH ×2 (09:12→23:46)
[2017-11-10] MEDS: DOXAZOSIN MESYLATE 1 MG TABLET PO SCH (09:12)
[2017-11-10] MEDS: DRONEDARONE HYDROCHLORIDE 400 MG TABLET PO SCH ×2 (09:12→23:46)
[2017-11-10 09:38] LABS: PLATELET COUNT 86 10^3/uL (150-450)
[2017-11-10] MEDS: NYSTATIN 500000 UNIT/5 ML UDCUP PO SCH ×4 (12:09→23:48)
[2017-11-10] MEDS: FLUTICASONE NASAL SPRAY 50 MCG/SPRY 120 SPRAY/16 GM NASL SCH ×2 (12:09→22:35)
--- NOTE | 2017-11-10 14:40 | PDOC PROGRESS REPORT ---
Subjective Progress Note for:: 11/10/17 Subjective:: Patient continues to diurese vigorously. He feels less tight in the chest and abdomen. He is able to move around more freely now. His breathing is improved. His right arm pain and bruising are stable. No tingling or numbness. No worsening pain. No new chest pain. No fevers or chills. No nausea vomiting constipation or diarrhea. Remainder of review of systems is performed and is negative. I have reviewed his labs and pertinent diagnostic studies. Reason For Visit: COPD EXACERBATION HEART FAILURE EXACERBATION Physical Exam Vital Signs: Temp Pulse Resp BP Pulse Ox 97.7 F 63 18 117/49 L 100 11/10/17 12:00 11/10/17 12:00 11/10/17 12:00 11/10/17 12:00 11/10/17 12:00 Intake & Output 11/09/17 11/10/17 11/11/17 06:59 06:59 06:59 Intake Total 420 1290 Balance 420 1290 Weight 114.1 kg 113.1 kg General appearance: PRESENT: no acute distress Head exam: PRESENT: atraumatic, normocephalic Eye exam: PRESENT: conjunctiva pink Mouth exam: PRESENT: moist Respiratory exam: PRESENT: rales - Bilateral bases, improving. ABSENT: rhonchi , unlabored, wheezes Cardiovascular exam: PRESENT: RRR, other - Patient has anasarca, slight improvement today. Pulses: PRESENT: normal radial pulses GI/Abdominal exam: PRESENT: normal bowel sounds, soft. ABSENT: distended, guarding, tenderness Rectal exam: PRESENT: deferred Extremities exam: PRESENT: other - Status post left BKA, prosthetic leg in place , well-healed Musculoskeletal exam: PRESENT: ambulatory Neurological exam: PRESENT: alert, awake, oriented to person, oriented to place , oriented to situation, CN II-XII grossly intact Psychiatric exam: PRESENT: appropriate affect. ABSENT: agitated, anxious, depressed Skin exam: PRESENT: intact, warm, other - Multiple ecchymoses over the bilateral arms. Results Laboratory Results: 11/10/17 08:08 11/10/17 05:25 11/10/17 11/10/17 11/10/17 05:25 05:25 08:08 WBC Cancelled 9.3 RBC Cancelled 3.39 L Hgb Cancelled 10.7 L Hct Cancelled 31.5 L MCV Cancelled 93 MCH Cancelled 31.5 MCHC Cancelled 33.8 RDW Cancelled 17.7 H Plt Count Cancelled 86 L Sodium 141.7 Potassium 4.2 Chloride 105 Carbon Dioxide 30 Anion Gap 7 BUN 66 H Creatinine 1.88 H Est GFR ( Amer) 42 L Est GFR (Non-Af Amer) 35 L Glucose 278 H Calcium 8.6 Magnesium 1.9 10/25/17 10/25/17 10/25/17 04:28 04:28 11:04 Creatine Kinase 25 L 22 L CK-MB (CK-2) 1.03 Troponin I < 0.012 NT-Pro-B Natriuret Pep 10/25/17 11/04/17 11:04 04:34 Creatine Kinase CK-MB (CK-2) 0.94 Troponin I 0.013 NT-Pro-B Natriuret Pep 3980 H Impressions: Head CT 10/24/17 16:35 IMPRESSION: CHRONIC CHANGES OF ATROPHY AND MICROVASCULAR ISCHEMIA. NO ACUTE PROCESS. EVIDENCE OF ACUTE STROKE: NO. Chest CT 10/29/17 00:00 IMPRESSION: Patchy consolidation in the medial and posterior basilar segments of the left lower lobe. Minimal ground-glass opacities in the right upper lobe. Chest X-Ray 11/05/17 00:00 IMPRESSION: NO ACUTE CARDIOPULMONARY PROCESS. NO SIGNIFICANT CHANGE FROM PRIOR STUDY. Extremity Ultrasound 11/08/17 00:00 IMPRESSION: Distal right forearm soft tissue hematoma between muscles along the flexor compartment. Muscle tear may be present. Assessment & Plan - Diagnosis (1) Acute and chronic respiratory failure Qualifiers: Respiratory failure complication: hypoxia and hypercapnia Qualified Code(s) : J96.21 - Acute and chronic respiratory failure with hypoxia; J96.22 - Acute and chronic respiratory failure with hypercapnia; J96.22 - Acute and chronic respiratory failure with hypercapnia; J96.22 - Acute and chronic respiratory failure with hypercapnia Is this a current diagnosis for this admission?: Yes Plan: Remaining acute component improving significantly with more aggressive diuresis. (2) CHF exacerbation Qualifiers: Congestive heart failure type: combined Qualified Code(s): I50.43 - Acute on chronic combined systolic (congestive) and diastolic (congestive) heart failure Is this a current diagnosis for this admission?: Yes Plan: We will continue with more vigorous diuresis, Bumex 2 mg p.o. twice daily. We will have to watch renal function closely and may need to discontinue aggressive diuresis tomorrow for discharge. He will need to be seen by his mending carrier or PCP within a day or so after discharge for basic metabolic panel monitoring. (3) Chronic atrial fibrillation Is this a current diagnosis for this admission?: Yes Plan: Rate controlled, no med changes. His INR has been trending upward and is 2.9 this morning. Given his recent muscle tear and hematoma in the right forearm I will hold his warfarin tonight and recheck INR in the morning. Will consider dose down titration tomorrow if indicated. (4) Chronic kidney disease, stage 3 Is this a current diagnosis for this admission?: Yes Plan: Creatinine has trended up slightly with aggressive diuresis. Will follow BUN and creatinine tomorrow to see if we need to go back to his routine diuresis. Will need close follow-up as an outpatient. (5) DM type 2 (diabetes mellitus, type 2) Qualifiers: Diabetes mellitus complication status: with hyperglycemia Diabetes mellitus group home insulin use: with medical terminologist use Qualified Code(s): E11.65 - Type 2 diabetes mellitus with hyperglycemia; Z79.4 - medical terminologist (current) use of insulin; Z79.4 - medical terminologist (current) use of insulin; Z79.4 - intermediate ( current) use of insulin; Z79.4 - medical terminologist (current) use of insulin Is this a current diagnosis for this admission?: Yes Plan: Stable, continue short and long-acting insulin. (6) Acute pain Is this a current diagnosis for this admission?: Yes Plan: In the right forearm, secondary to muscle tear and acute hematoma in the setting of anticoagulation with warfarin for A. fib. Patient works out fairly vigorously and I think he tore his muscle while working out in his room. I have advised him to not work out for now. Neurovascularly he is intact. (7) Muscle tear Is this a current diagnosis for this admission?: Yes Plan: Please see above acute pain (8) Hematoma, nontraumatic, soft tissue Is this a current diagnosis for this admission?: Yes Plan: Cc above, acute pain - Time Time Spent with patient: 25-34 minutes Anticipated discharge: Home with Homehealth Within: within 24 hours - Inpatient Certification Based on my medical assessment, after consideration of the patient's comorbidities, presenting symptoms, or acuity I expect that the services needed warrant INPATIENT care.: Yes I certify that my determination is in accordance with my understanding of Medicare's requirements for reasonable and necessary INPATIENT services [42 CFR 412.3e].: Yes Medical Necessity: Significant Comorbidiites Make Outpatient Treatment Too Risky , Need Close Monitoring Due to Risk of Patient Decompensation, Risk of Complication if Not Cared For in Hospital
[2017-11-10] MEDS: IPRATROPIUM/ALBUTEROL 0.5-2.5 MG/3 ML AMPUL NEB PRN (19:37)
[2017-11-10] MEDS: FINASTERIDE 5 MG TABLET PO SCH (23:42)
[2017-11-10] MEDS: MONTELUKAST SODIUM 10 MG TABLET PO SCH (23:43)
[2017-11-10] MEDS: TAMSULOSIN HCL 0.4 MG CAP.SR.24H PO SCH (23:43)
[2017-11-10] MEDS: ATORVASTATIN CALCIUM 40 MG TABLET PO SCH (23:45)
[2017-11-10] MEDS: NITROGLYCERIN 5 MG (0.2 MG/HR) PATCH.TD24 TD SCH (23:45)
[2017-11-10] MEDS: INSULIN GLARGINE,HUM.REC.ANLOG 300 UNIT/3 ML INSULN.PEN SUBCUT SCH (23:46)
[2017-11-11] MEDS: ACETYLCYSTEINE 10% NEB 400 MG/4 ML VIAL NEB SCH ×3 (01:31→14:17)
[2017-11-11] MEDS: HYDRALAZINE HCL 25 MG TABLET PO SCH ×2 (06:28→13:49)
[2017-11-11] MEDS: HYDROCODONE/ACETAMINOPHEN 10-325 MG TABLET PO PRN ×2 (06:28→13:15)
[2017-11-11 08:13] LABS: INTERNATIONAL RATION (INR) 3.17
[2017-11-11 08:24] LABS: ANION GAP 5 (5-19); BLOOD UREA NITROGEN 65 mg/dL (7-20); CALCIUM 8.2 mg/dL (8.4-10.2); CARBON DIOXIDE 34 mmol/L (22-30); CHLORIDE 105 mmol/L (98-107); GLUCOSE 135 mg/dL (75-110); POTASSIUM 3.9 mmol/L (3.6-5.0); SODIUM 144.4 mmol/L (137-145)
[2017-11-11] MEDS: INSULIN LISPRO 100 UNIT/ML 3 ML VIAL SUBCUT SCH ×2 (08:50→11:42)
[2017-11-11] MEDS: INSULIN LISPRO 100 UNIT/ML 3 ML VIAL SUBCUT PRN (08:50)
[2017-11-11] MEDS: LACTULOSE SYRUP 20 GM/30 ML UDCUP PO SCH (08:50)
[2017-11-11] MEDS: POTASSIUM CHLORIDE 10 MEQ TABLET.SA PO SCH (08:53)
[2017-11-11] MEDS: ISOSORBIDE MONONITRATE 30 MG TAB.ER.24H PO SCH (08:54)
[2017-11-11] MEDS: BUMETANIDE 1 MG TABLET PO SCH (08:55)
[2017-11-11] MEDS: LANSOPRAZOLE 15 MG TAB.RAP.DR PO SCH (08:58)
[2017-11-11] MEDS: GUAIFENESIN 600 MG TABLET.SA PO SCH (08:58)
[2017-11-11] MEDS: METOPROLOL SUCCINATE 50 MG TAB.SR.24H PO SCH (08:59)
[2017-11-11] MEDS: PREGABALIN 75 MG CAPSULE PO SCH (09:00)
[2017-11-11] MEDS: ALLOPURINOL 300 MG TABLET PO SCH (09:01)
[2017-11-11] MEDS: ASPIRIN 81 MG TABLET, ENT COATED PO SCH (09:02)
[2017-11-11] MEDS: DOCUSATE SODIUM 100 MG CAPSULE PO SCH (09:02)
[2017-11-11] MEDS: MULTIVITAMIN TABLET PO SCH (09:02)
[2017-11-11] MEDS: MAGNESIUM OXIDE 400 MG TABLET PO SCH (09:02)
[2017-11-11] MEDS: BUDESONIDE/FORMOTEROL 160-4.5 MCG 60 PUFF/6 GM MDI IH SCH (09:03)
[2017-11-11] MEDS: CHOLECALCIFEROL (D3) 400 UNIT TABLET PO SCH (09:04)
[2017-11-11] MEDS: DOXAZOSIN MESYLATE 1 MG TABLET PO SCH (09:04)
[2017-11-11] MEDS: RANOLAZINE 500 MG TAB.SR.12H PO SCH (09:04)
[2017-11-11] MEDS: DRONEDARONE HYDROCHLORIDE 400 MG TABLET PO SCH (09:05)
[2017-11-11] MEDS: TIOTROPIUM BROMIDE DPI 5 CAP/KIT (18 MCG/CAP) IH SCH (09:05)
[2017-11-11] MEDS ORDERED: PREDNISONE 10 MG TABLET PO SCH (10:00)
[2017-11-11] MEDS: FLUTICASONE NASAL SPRAY 50 MCG/SPRY 120 SPRAY/16 GM NASL SCH (11:42)
[2017-11-11] MEDS: NYSTATIN 500000 UNIT/5 ML UDCUP PO SCH ×2 (11:42→13:43)
--- NOTE | 2017-11-11 13:46 | PDOC DISCHARGE SUMMARY ---
General - Admit/Disc Date/PCP Admission Date/Primary Care Provider: 10/24/17 22:39 RUY CARTWRIGHT MD Discharge Date: 11/11/17 - Discharge Diagnosis (1) Acute and chronic respiratory failure Is this a current diagnosis for this admission?: Yes (2) CHF exacerbation Is this a current diagnosis for this admission?: Yes Summary: Systolic and diastolic CHF and anasarca treated with diuretics - Additional Information Resuscitation Status: Full Code Discharge Diet: Cardiac, Diabetic Discharge Activity: Activity As Tolerated, Balance Activity w/Rest, Weigh Daily Prescriptions: Albuterol Sulfate [Albuterol Sulfate 2.5mg/3 mL] 1 vial IH Q4HP PRN 5 Days #15 vial PRN Reason: See Label Comments Nebulizer [Altera Nebulizer] 1 each MC Q4HP PRN 90 Days #1 each PRN Reason: Nystatin [Mycostatin 500,000 Unit/5 ml Susp Udcup] 500,000 unit PO QID 5 Days # 20 udc Tiotropium [place] [Spiriva Handihaler 5 Cap/Kit (18 Mcg/Cap)] 1 cap IH DAILY # 1 kit Home Medications: Albuterol Sulfate [Ventolin HFA MDI 18 GM] 1 puff IH Q6HP PRN 10/03/17 Allopurinol [Zyloprim 300 mg Tablet] 150 mg PO DAILY 10/03/17 Aspirin [Aspirin EC] 81 mg PO DAILY 10/03/17 Atorvastatin Calcium [Lipitor 40 mg Tablet] 40 mg PO QHS 10/03/17 Budesonide/Formoterol Fumarate [Symbicort HFA 160-4.5 mcg Inhaler 6 gm] 2 puff IH Q12 10/03/17 Cholecalciferol (Vitamin D3) [Vitamin D3 400 Unit Tablet] 400 unit PO DAILY Dronedarone Hydrochloride [Multaq 400 mg Tablet] 400 mg PO Q12 10/03/17 Finasteride [Proscar 5 mg Tablet] 5 mg PO QHS 10/03/17 Hydralazine HCl [Apresoline 25 mg Tablet] 25 mg PO Q12 10/03/17 Hydrocodone Bit/Acetaminophen [Hydrocodon-Acetaminophn 10-325] 1 tab PO Q6HP PRN 10/03/17 Isosorbide Mononitrate [Isosorbide Mononitrate ER] 90 mg PO DAILY 10/03/17 Magnesium Oxide [Mag-Ox 400 mg Tablet] 400 mg PO BID 10/03/17 Metoprolol Succinate [Toprol Xl 50 mg Tab.sr] 50 mg PO DAILY 10/03/17 Montelukast Sodium [Singulair 10 mg Tablet] 10 mg PO QHS 10/03/17 Multivitamin [Tab-A-Maris (Multiple Vitamin) Tablet] 1 tab PO DAILY 10/03/17 Omeprazole 20 mg PO DAILY 10/03/17 Polyethylene Glycol 3350 [Miralax Powder 17 gm/Packet] 1 packet PO QPMP PRN Pregabalin [Lyrica] 150 mg PO Q12 10/03/17 Ranolazine [Ranexa 500 mg Tab.sr] 1,000 mg PO Q12 10/03/17 Sennosides/Docusate 8.6-50 mg [Senna Plus Tablet] 1 tab PO BID 10/03/17 Tamsulosin HCl [Flomax 0.4 mg Cap.sr] 0.8 mg PO QHS 10/03/17 Terazosin HCl 1 mg PO DAILY 10/03/17 Zolpidem Tartrate [Ambien 5 mg Tablet] 5 mg PO HSP PRN 10/03/17 Insulin Glargine,Hum.rec.anlog [Lantus Solostar] 20 unit SQ QHS #1 insuln.pen Montelukast Sodium [Singulair 10 mg Tablet] 10 mg PO QHS tablet 10/07/17 Bumetanide [Bumex 2 mg Tablet] 2 mg PO DAILY 10/25/17 Albuterol Sulfate [Albuterol Sulfate 2.5mg/3 mL] 1 vial IH Q4HP PRN 5 Days #15 vial 11/11/17 Magnesium Hydroxide [Milk of Magnesia 30 ml Udcup] 30 ml PO HSP PRN udc Nebulizer [Altera Nebulizer] 1 each MC Q4HP PRN 90 Days #1 each 11/11/17 Nystatin [Mycostatin 500,000 Unit/5 ml Susp Udcup] 500,000 unit PO QID 5 Days # 20 udc 11/11/17 Tiotropium [place] [Spiriva Handihaler 5 Cap/Kit (18 Mcg/Cap)] 1 cap IH DAILY # 1 kit 11/11/17 Warfarin Sodium [Coumadin 2 mg Tablet] 2 mg PO QHS #0 11/11/17 History of Present Illness History of Present Illness: TRUONG PINK is a 77 year old male with past medical history of Atrial fibrillation on mild tach AICD Peripheral vascular disease Ischemic heart disease CABG 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 Ring his hospital stay he was working out some weight lifting exercises and sustained a hematoma in his right forearm. His INR today is 3.1. He will be holding his Coumadin tonight and restart tomorrow after checking his INR. Hospital Course Hospital Course: He is doing much better now and is stable for discharge. He is to follow-up with his primary care physician and with his material cutter within the next week. Physical Exam Vital Signs: Temp Pulse Resp BP Pulse Ox 97.7 F 60 23 H 115/61 98 11/11/17 07:35 11/11/17 08:27 11/11/17 08:27 11/11/17 07:35 11/11/17 08:27 Intake & Output 11/10/17 11/11/17 11/12/17 06:59 06:59 06:59 Intake Total 1290 840 Balance 1290 840 Weight 113.1 kg 115.4 kg General appearance: PRESENT: no acute distress Ear exam: PRESENT: normal external ear exam Neck exam: ABSENT: tracheal deviation Respiratory exam: PRESENT: other - Faint bibasilar crackles. ABSENT: accessory muscle use GI/Abdominal exam: PRESENT: soft. ABSENT: tenderness Rectal exam: PRESENT: deferred Results Laboratory Results: 11/10/17 08:08 11/11/17 07:24 11/11/17 07:24 Sodium 144.4 Potassium 3.9 Chloride 105 Carbon Dioxide 34 H Anion Gap 5 BUN 65 H Creatinine 2.24 H Est GFR ( Amer) 34 L Est GFR (Non-Af Amer) 28 L Glucose 135 H Calcium 8.2 L 10/25/17 10/25/17 10/25/17 04:28 04:28 11:04 Creatine Kinase 25 L 22 L CK-MB (CK-2) 1.03 Troponin I < 0.012 NT-Pro-B Natriuret Pep 10/25/17 11/04/17 11:04 04:34 Creatine Kinase CK-MB (CK-2) 0.94 Troponin I 0.013 NT-Pro-B Natriuret Pep 3980 H Impressions: Head CT 10/24/17 16:35 IMPRESSION: CHRONIC CHANGES OF ATROPHY AND MICROVASCULAR ISCHEMIA. NO ACUTE PROCESS. EVIDENCE OF ACUTE STROKE: NO. Chest CT 10/29/17 00:00 IMPRESSION: Patchy consolidation in the medial and posterior basilar segments of the left lower lobe. Minimal ground-glass opacities in the right upper lobe. Chest X-Ray 11/05/17 00:00 IMPRESSION: NO ACUTE CARDIOPULMONARY PROCESS. NO SIGNIFICANT CHANGE FROM PRIOR STUDY. Extremity Ultrasound 11/08/17 00:00 IMPRESSION: Distal right forearm soft tissue hematoma between muscles along the flexor compartment. Muscle tear may be present. Plan Time Spent: Greater than 30 Minutes
[2017-11-11] MEDS: IPRATROPIUM/ALBUTEROL 0.5-2.5 MG/3 ML AMPUL NEB PRN (14:17)
[2017-11-11 14:32] VITALS: BP 142/68
== END 2017-11-11 15:25 | disposition home health service (06) | DRG 291 ==
LOC: ER 15:50 → EH 22:39 → 5 10-25 19:10
PROVIDERS: ADMIT Internal Medicine; ATTEND Internal Medicine
PROC: 5A09557 Assistance with Respiratory Ventilation, Greater than 96 Consecutive Hours, Continuous Positive Airway Pressure (ICD-10-PCS; principal; 2017-10-24)
PROC: 3E0F73Z Introduction of Anti-inflammatory into Respiratory Tract, Via Natural or Artificial Opening (ICD-10-PCS; 2017-10-24)
DX: I13.0 Hypertensive heart and chronic kidney disease with heart failure and stage 1 through stage 4 chronic kidney disease, or unspecified chronic kidney disease (principal); J96.21 Acute and chronic respiratory failure with hypoxia; J96.22 Acute and chronic respiratory failure with hypercapnia; I50.43 Acute on chronic combined systolic (congestive) and diastolic (congestive) heart failure; J18.9 Pneumonia, unspecified organism; D69.3 Immune thrombocytopenic purpura; J44.0 Chronic obstructive pulmonary disease with (acute) lower respiratory infection; J43.1 Panlobular emphysema; I48.2 Chronic atrial fibrillation; N18.3 Chronic kidney disease, stage 3 (moderate); E11.22 Type 2 diabetes mellitus with diabetic chronic kidney disease; E11.51 Type 2 diabetes mellitus with diabetic peripheral angiopathy without gangrene; I25.9 Chronic ischemic heart disease, unspecified; I27.20 Pulmonary hypertension, unspecified; G47.33 Obstructive sleep apnea (adult) (pediatric); I25.10 Atherosclerotic heart disease of native coronary artery without angina pectoris; E78.5 Hyperlipidemia, unspecified; K21.9 Gastro-esophageal reflux disease without esophagitis; M19.90 Unspecified osteoarthritis, unspecified site; D63.1 Anemia in chronic kidney disease; Z68.34 Body mass index [BMI] 34.0-34.9, adult; K59.00 Constipation, unspecified; E11.65 Type 2 diabetes mellitus with hyperglycemia; M79.81 Nontraumatic hematoma of soft tissue; E66.9 Obesity, unspecified; I44.0 Atrioventricular block, first degree; Z95.1 Presence of aortocoronary bypass graft; Z79.4 Long term (current) use of insulin; Z79.899 Other long term (current) drug therapy; Z79.82 Long term (current) use of aspirin; Z79.01 Long term (current) use of anticoagulants; Z95.810 Presence of automatic (implantable) cardiac defibrillator; Z90.81 Acquired absence of spleen; I25.2 Old myocardial infarction; Z86.711 Personal history of pulmonary embolism; Z95.5 Presence of coronary angioplasty implant and graft; Z89.512 Acquired absence of left leg below knee; Z87.891 Personal history of nicotine dependence; Z82.5 Family history of asthma and other chronic lower respiratory diseases; Z83.6 Family history of other diseases of the respiratory system; Z82.49 Family history of ischemic heart disease and other diseases of the circulatory system; Z88.3 Allergy status to other anti-infective agents; Z88.0 Allergy status to penicillin
CPT/HCPCS: 36415; 70450; 71045; 71046; 71250; 76881; 80048; 80053; 82140; 82550; 82553; 82962; 83735; 83880; 84484; 85025; 85027; 85610; 93005; 93010; 93971; 94640; 94660; 94667; 94668; 96374; 96375; 99291; J0692; J0696; J1815; J1940; J2920; J2930; J3490; J7060; J7512; J7620

== ENCOUNTER 2017-11-12 16:48 | Inpatient (IN) | payer MEDICARE ==
[2017-11-12] MEDS ORDERED: FUROSEMIDE INJ/PF 40 MG/4 ML SDV IV ONE (18:16)
[2017-11-12] MEDS ORDERED: METHYLPREDNISOLONE INJ 125 MG/2 ML SDV IV ONE (18:22)
[2017-11-12] MEDS ORDERED: IPRATROPIUM/ALBUTEROL 0.5-2.5 MG/3 ML AMPUL NEB ONE ×2 (18:23→20:55)
[2017-11-12 18:25] LABS: HEMATOCRIT 33.1 % (37.9-51.0); HEMOGLOBIN 10.8 g/dL (13.5-17.0); MEAN CORPUSCULAR HEMOGLOBIN 30.8 pg (27.0-33.4); MEAN CORPUSCULAR HGB CONC 32.7 g/dL (32.0-36.0); MEAN CORPUSCULAR VOLUME 94 fl (80-97); PLATELET COUNT 93 10^3/uL (150-450); RED BLOOD COUNT 3.52 10^6/uL (4.35-5.55); RED CELL DISTRIBUTION WIDTH 18.6 % (11.5-14.0); WHITE BLOOD COUNT 9.5 10^3/uL (4.0-10.5)
[2017-11-12] MEDS ORDERED: OXYCODONE-ACETAMINOPHEN 5-325 MG TABLET PO ONE (18:39)
--- NOTE | 2017-11-12 18:43 | ER Document Report ---
ED General - General Chief Complaint: Breathing Difficulty Stated Complaint: DIFFICULTY BREATHING Time Seen by Provider: 11/12/17 17:08 Mode of Arrival: Ambulatory Information source: Patient Notes: 77-year-old man with a history of COPD, CHF, chronic kidney disease, atrial fibrillation (Coumadin) who presents to the emergency room with shortness of breath, increasing swelling and difficulty breathing. TRAVEL OUTSIDE OF THE [place] IN LAST 30 DAYS: No - HPI Onset: Last week Onset/Duration: Gradual Quality of pain: No pain Severity: None Pain Level: Denies Associated symptoms: Shortness of breath. denies: Chest pain, Fever Exacerbated by: Movement Relieved by: Remaining still Similar symptoms previously: Yes Recently seen / treated by doctor: Yes - Related Data Allergies/Adverse Reactions: Penicillins Allergy (Unknown, Verified 05/17/17 10:40) vancomycin [Vancomycin] Adverse Reaction (Verified 08/24/16 13:13) Past Medical History - General Information source: Patient - Social History Smoking Status: Former Smoker Cigarette use (# per day): No Chew tobacco use (# tins/day): No Frequency of alcohol use: None Drug Abuse: None Lives with: Family Family History: CAD, COPD Patient has suicidal ideation: No Patient has homicidal ideation: No - Past Medical History Cardiac Medical History: Reports: Hx Atrial Fibrillation, Hx Congestive Heart Failure, Hx Coronary Artery Disease, Hx Heart Attack - x6, Hx Hypercholesterolemia, Hx Hypertension, Hx Peripheral Vascular Disease, Hx Pulmonary Embolism Pulmonary Medical History: Reports: Hx Asthma, Hx Bronchitis, Hx COPD, Hx Sleep Apnea - without c-pap Denies: Hx Pneumonia, Hx Respiratory Failure, Hx Tuberculosis Neurological Medical History: Denies: Hx Cerebrovascular Accident, Hx Seizures Endocrine Medical History: Reports: Hx Diabetes Mellitus Type 2. Denies: Hx Graves' Disease, Hx Hyperthyroidism, Hx Hypothyroidism Renal/ Medical History: Reports: Hx Benign Prostatic Hyperplasia, Hx Kidney Stones. Denies: Hx End Stage Renal Disease, Hx Peritoneal Dialysis Malignancy Medical History: Denies Hx Leukemia, Denies Hx Lung Cancer GI Medical History: Reports: Hx Gastroesophageal Reflux Disease. Denies: Hx Hepatitis, Hx Hiatal Hernia, Hx Ulcer Musculoskeltal Medical History: Reports Hx Arthritis, Denies Hx Fibromyalgia, Denies Hx Multiple Sclerosis, Denies Hx Muscular Dystrophy Psychiatric Medical History: Denies: Hx Dementia, Hx Depression Traumatic Medical History: Denies: Hx Fractures Infectious Medical History: Denies: Hx Hepatitis, Hx HIV Past Surgical History: Reports: Hx Abdominal Surgery - AAA, Hx Cardiac Catheterization, Hx Cardiac Surgery - triple bypass, Hx Coronary Artery Bypass Graft - quadruple, Hx Coronary Stent, Hx Internal Defibrillator, Hx Open Heart Surgery - LATE , Hx Orthopedic Surgery - Left BKA, Hx Pacemaker. Denies: Hx Appendectomy, Hx Bowel Surgery, Hx Cholecystectomy, Hx Gastric Bypass Surgery , Hx Herniorrhaphy, Hx Tonsillectomy - Immunizations Hx Diphtheria, Pertussis, Tetanus Vaccination: Yes Hx Pneumococcal Vaccination: 07/04/08 Review of Systems - Review of Systems Constitutional: denies: Chills, Fever EENT: No symptoms reported Cardiovascular: See HPI Respiratory: See HPI Gastrointestinal: No symptoms reported Genitourinary: No symptoms reported Male Genitourinary: No symptoms reported Musculoskeletal: Leg swelling Skin: No symptoms reported Hematologic/Lymphatic: No symptoms reported Neurological/Psychological: No symptoms reported Physical Exam - Vital signs Vitals: Resp 28 H 11/12/17 17:00 Notes: Physical exam: GENERAL: 77-year-old man, alert and oriented 3, appears tachypnea, HEAD: Atraumatic, normocephalic. EYES: Pupils equal round and reactive to light, extraocular movements intact, sclera anicteric, conjunctiva are normal. ENT: TMs normal, nares patent, oropharynx clear without exudates. Moist mucous membranes. NECK: Normal range of motion, supple without obvious mass or JVD. LUNGS: Diffuse wheezing bilaterally HEART: Regular rate and rhythm without murmurs, rubs or gallops. ABDOMEN: Soft, normoactive bowel sounds. No tenderness to palpation. No guarding, no rebound. No masses appreciated. EXTREMITIES: Diffuse upper and lower extremity edema. The patient does have a left BKA NEUROLOGICAL: Cranial nerves II through XII grossly intact. Normal speech, moving all extremities. PSYCH: Normal mood, normal affect. SKIN: Both upper and lower extremities have significant edema, right lower extremity has skin weeping and a superficial ulcer which was dressed.. Course - Re-evaluation Re-evalutation: 11/12/17 18:43 Urine output: 800 cc in the ER - Vital Signs Vital signs: Temp Pulse Resp BP Pulse Ox 20 133/70 H 97 11/12/17 22:16 11/12/17 22:16 11/12/17 22:16 - Laboratory Result Diagrams: 11/12/17 18:04 11/12/17 18:04 Laboratory results interpreted by me: 11/12/17 11/12/17 11/12/17 18:04 18:04 18:04 RBC 3.52 L Hgb 10.8 L Hct 33.1 L RDW 18.6 H Plt Count 93 L Band Neutrophils % 2 L Lymphocytes % (Manual) 11 L PT Carbon Dioxide 34 H Anion Gap 3 L BUN 62 H Creatinine 2.31 H Est GFR ( Amer) 33 L Est GFR (Non-Af Amer) 27 L Glucose 191 H Direct Bilirubin 0.6 H Creatine Kinase 40 L NT-Pro-B Natriuret Pep 2400 H Total Protein 5.0 L Albumin 2.7 L 11/12/17 18:04 RBC Hgb Hct RDW Plt Count Band Neutrophils % Lymphocytes % (Manual) PT 24.3 H Carbon Dioxide Anion Gap BUN Creatinine Est GFR ( Amer) Est GFR (Non-Af Amer) Glucose Direct Bilirubin Creatine Kinase NT-Pro-B Natriuret Pep Total Protein Albumin - Diagnostic Test Radiology reviewed: Image reviewed, Reports reviewed - EKG Interpretation by Me Rhythm: Other - This is a atrial paced rhythm with a ventricular rate of 62, 100 % capture Procedures - Additional Procedures Ultrasound-guided IV line Time performed: 23:22 Notes: 11/12/17 23:22 Line placed earlier had come out. The left upper extremity was evaluated with ultrasound. A midaxillary vein was identified approximately 1 cm deep which was cannulated under real-time. Repeat blood work was sent and the line was secured. perfomed by Neno (RN) Critical Care Note - Critical Care Note Total time excluding time spent on procedures (mins): 60 Discharge - Discharge Clinical Impression: COPD exacerbation, CHF Condition: Stable Disposition: ADMITTED INPATIENT Admitting Provider: Hospitalist - Dr. castaneda Unit Admitted: Telemetry
[2017-11-12 18:46] LABS: ALANINE AMINOTRANSFERASE 33 U/L (21-72); ALBUMIN 2.7 g/dL (3.5-5.0); ALKALINE PHOSPHATASE 78 U/L (38-126); ASPARTATE AMINO TRANSFERASE 24 U/L (17-59); BILIRUBIN,DIRECT 0.6 mg/dL (0.0-0.4); BILIRUBIN,TOTAL 0.6 mg/dL (0.2-1.3); BLOOD UREA NITROGEN 62 mg/dL (7-20); CALCIUM 8.4 mg/dL (8.4-10.2); CHLORIDE 105 mmol/L (98-107); CREATINE KINASE 40 U/L (55-170); GLUCOSE 191 mg/dL (75-110)
[2017-11-12 18:57] LABS: CARBON DIOXIDE 34 mmol/L (22-30); CREATINE KINASE MB 1.79 ng/mL (<4.55); POTASSIUM 4.5 mmol/L (3.6-5.0); SODIUM 142.1 mmol/L (137-145)
[2017-11-12 19:02] LABS: ANION GAP 3 (5-19)
[2017-11-12 19:03] LABS: TROPONIN I 0.044 ng/mL
[2017-11-12 19:08] LABS: ABSOLUTE MONOCYTES # (MANUAL) 1.2 10^3/uL (0.1-1.4); ABSOLUTE NEUTROPHILS# (MANUAL) 6.9 10^3/uL (1.7-8.2); BAND NEUTROPHILS % (MANUAL) 2 % (3-5); BASOPHILS % (MANUAL) 0 % (0-2); EOSINOPHILS % (MANUAL) 3 % (0-6); LYMPHOCYTES % (MANUAL) 11 % (13-45); MONOCYTES % (MANUAL) 13 % (3-13); SEGMENTED NEUTROPHILS % (MAN) 71 % (42-78); TOTAL CELLS COUNTED 100
[2017-11-12 19:09] LABS: ANISOCYTOSIS 2+; POIKILOCYTOSIS 1+; TOXIC GRANULATION SLIGHT
[2017-11-12 19:10] LABS: PLATELET COMMENT DECREASED; PLATELET LARGE PRESENT
--- NOTE | 2017-11-12 19:10 | RADIOLOGY REPORT (SQ) ---
EXAM DESCRIPTION: CHEST SINGLE VIEW COMPLETED DATE/TIME: 11/12/2017 6:52 pm REASON FOR STUDY: SOB COMPARISON: 11/05/2017. NUMBER OF VIEWS: One view. TECHNIQUE: Single frontal radiographic view of the chest acquired. LIMITATIONS: None. FINDINGS: LUNGS AND PLEURA: No opacities, masses or pneumothorax. No pleural effusion. MEDIASTINUM AND HILAR STRUCTURES: No masses. Contour normal. HEART AND VASCULAR STRUCTURES: Heart enlarged without failure. Normal vasculature. BONES: No acute findings. HARDWARE: Defibrillator. Sternotomy wires and coronary bypass markers. OTHER: No other significant finding. IMPRESSION: HEART ENLARGED WITHOUT FAILURE. NO OTHER SIGNIFICANT RADIOGRAPHIC FINDING IN THE CHEST. TECHNICAL DOCUMENTATION: JOB ID: [id number] [employer]- All Rights Reserved
[2017-11-12] MEDS ORDERED: FUROSEMIDE INJ/PF 40 MG/4 ML SDV IV SCH (22:00)
[2017-11-12] MEDS ORDERED: NITROGLYCERIN 2.5 MG (0.1 MG/HR) PATCH.TD24 TD ONE (22:07)
[2017-11-12] MEDS ORDERED: ZOLPIDEM TARTRATE 5 MG TABLET PO PRN (22:08)
[2017-11-12] MEDS ORDERED: MAGNESIUM HYDROXIDE SUSP 30 ML UDCUP PO PRN (22:08)
[2017-11-12] MEDS ORDERED: POLYETHYLENE GLYCOL 3350 POWDER 17 GM/1 PACKET PO PRN (22:08)
--- NOTE | 2017-11-12 22:09 | EKG REPORT ---
SEVERITY:- ABNORMAL ECG - ATRIAL-PACED RHYTHM NONSPECIFIC INTRAVENTRICULAR CONDUCTION DELAY INFERIOR INFARCT, AGE INDETERMINATE LATERAL LEADS ARE ALSO INVOLVED : Confirmed by: Magi Garcia 12-Nov-2017 22:07:52
[2017-11-12 22:43] LABS: INTERNATIONAL RATION (INR) 2.06; PROTHROMBIN TIME 24.3 SEC (11.4-15.4)
[2017-11-13] MEDS ORDERED: DEXTROSE 50%-WATER 25 GM/50 ML DISP.SYRIN IV PRN ×4 (00:47→17:31)
[2017-11-13] MEDS ORDERED: DEXTROSE 40% GEL 15 GM TUBE PO PRN ×4 (00:47→17:31)
[2017-11-13] MEDS ORDERED: GLUCAGON,HUMAN RECOMB 1 MG INJ IM PRN ×2 (00:47→17:31)
[2017-11-13] MEDS ORDERED: METOLAZONE 5 MG TABLET PO ONE (01:00)
[2017-11-13] MEDS ORDERED: OXYCODONE-ACETAMINOPHEN 5-325 MG TABLET PO ONE (01:00)
[2017-11-13] MEDS ORDERED: BUMETANIDE INJ/PF 1 MG/4 ML SDV IV ONE (01:00)
--- NOTE | 2017-11-13 01:00 | PDOC H&P ---
History of Present Illness Admission Date/PCP: 11/12/17 21:53 RUY CARTWRIGHT MD Patient complains of: Swelling and shortness of breath with activity History of Present Illness: TRUONG PINK is a 77 year old male with a history of atrial fibrillation on Multaq and Coumadin, and AICD with pacemaker, peripheral vascular disease, ischemic heart disease post coronary artery bypass graft, congestive heart failure with a EF of 30-35% and moderate diastolic failure with pulmonary hypertension, obstructive sleep apnea, diabetes and stage III renal failure, posttraumatic splenectomy and Metzger with ascites presenting with increased swelling and shortness of breath. Patient states he was swollen on day of discharge and was not feeling well. Patient states now the swelling is worse. He states that it was to the point that the fluid was oozing through his dressing. Swelling in his legs, thighs and back. Patient states he cannot walk without becoming extremely short of breath. Patient states upon presentation to the ED he voided 1 L. Patient was given 60 of IV Lasix and it did nothing for him in the ED. Patient was also placed on BiPAP. Patient states something has to be done.. Patient complaining of pain that is okay with taking Percocet. ED chest x-ray is clear. Patient was noted to have an elevated BNP and his creatinine was slightly increased from 2.24 to 2.31 previous admission. Hospitalist was called to admit patient for CHF exacerbation and anasarca. Past Medical History Cardiac Medical History: Reports: Atrial Fibrillation, Congestive Heart Failure , Coronary Artery Disease, Myocardial Infarction - x6, Hyperlipidema, Hypertension, Peripheral Vascular Disease, Pulmonary Embolism Pulmonary Medical History: Reports: Asthma, Bronchitis, Chronic Obstructive Pulmonary Disease (COPD), Sleep Apnea - without c-pap Denies: Pneumonia, Respiratory Failure, Tuberculosis Neurological Medical History: Denies: Seizures Endocrine Medical History: Reports: Diabetes Mellitus Type 2 Denies: Hyperthyroidism, Hypothyroidism Renal/ Medical History: Denies: End Stage Renal Disease Malignancy Medical History: Denies: Leukemia, Lung Cancer GI Medical History: Reports: Gastroesophageal Reflux Disease Denies: Hepatitis, Hiatal Hernia Musculoskeltal Medical History: Reports: Arthritis Denies: Fibromyalgia Psychiatric Medical History: Denies: Dementia, Depression Hematology: Denies: Anemia, Hemophilia, Sickle Cell Disease Infectious Medical History: Denies: HIV Past Surgical History Past Surgical History: Reports: Cardiac Catheterization, Coronary Artery Bypass Graft - quadruple, Coronary Stent, Internal Defibrillator, Orthopedic Surgery - Left BKA, Pacemaker Denies: Appendectomy, Cholecystectomy, Gastric Bypass Surgery, Herniorrhaphy , Tonsillectomy Social History Smoking Status: Former Smoker Frequency of Alcohol Use: None Hx Recreational Drug Use: No Drugs: None Hx Prescription Drug Abuse: No - Advance Directive Resuscitation Status: Full Code Family History Family History: CAD, COPD Parental Family History Reviewed: No Children Family History Reviewed: No Sibling(s) Family History Reviewed.: No Medication/Allergy Home Medications: Albuterol Sulfate [Ventolin HFA MDI 18 GM] 1 puff IH Q6HP PRN 10/03/17 Allopurinol [Zyloprim 300 mg Tablet] 150 mg PO DAILY 10/03/17 Aspirin [Aspirin EC] 81 mg PO DAILY 10/03/17 Atorvastatin Calcium [Lipitor 40 mg Tablet] 40 mg PO QHS 10/03/17 Budesonide/Formoterol Fumarate [Symbicort HFA 160-4.5 mcg Inhaler 6 gm] 2 puff IH Q12 10/03/17 Cholecalciferol (Vitamin D3) [Vitamin D3 400 Unit Tablet] 400 unit PO DAILY Dronedarone Hydrochloride [Multaq 400 mg Tablet] 400 mg PO Q12 10/03/17 Finasteride [Proscar 5 mg Tablet] 5 mg PO QHS 10/03/17 Hydralazine HCl [Apresoline 25 mg Tablet] 25 mg PO Q12 10/03/17 Hydrocodone Bit/Acetaminophen [Hydrocodon-Acetaminophn 10-325] 1 tab PO Q6HP PRN 10/03/17 Isosorbide Mononitrate [Isosorbide Mononitrate ER] 90 mg PO DAILY 10/03/17 Magnesium Oxide [Mag-Ox 400 mg Tablet] 400 mg PO BID 10/03/17 Metoprolol Succinate [Toprol Xl 50 mg Tab.sr] 50 mg PO DAILY 10/03/17 Montelukast Sodium [Singulair 10 mg Tablet] 10 mg PO QHS 10/03/17 Multivitamin [Tab-A-Maris (Multiple Vitamin) Tablet] 1 tab PO DAILY 10/03/17 Omeprazole 20 mg PO DAILY 10/03/17 Polyethylene Glycol 3350 [Miralax Powder 17 gm/Packet] 1 packet PO QPMP PRN Pregabalin [Lyrica] 150 mg PO Q12 10/03/17 Ranolazine [Ranexa 500 mg Tab.sr] 1,000 mg PO Q12 10/03/17 Sennosides/Docusate 8.6-50 mg [Senna Plus Tablet] 1 tab PO BID 10/03/17 Tamsulosin HCl [Flomax 0.4 mg Cap.sr] 0.8 mg PO QHS 10/03/17 Terazosin HCl 1 mg PO DAILY 10/03/17 Zolpidem Tartrate [Ambien 5 mg Tablet] 5 mg PO HSP PRN 10/03/17 Insulin Glargine,Hum.rec.anlog [Lantus Solostar] 20 unit SQ QHS #1 insuln.pen Montelukast Sodium [Singulair 10 mg Tablet] 10 mg PO QHS tablet 10/07/17 Bumetanide [Bumex 2 mg Tablet] 2 mg PO DAILY 10/25/17 Albuterol Sulfate [Albuterol Sulfate 2.5mg/3 mL] 1 vial IH Q4HP PRN 5 Days #15 vial 11/11/17 Magnesium Hydroxide [Milk of Magnesia 30 ml Udcup] 30 ml PO HSP PRN udc Nebulizer [Altera Nebulizer] 1 each MC Q4HP PRN 90 Days #1 each 11/11/17 Nystatin [Mycostatin 500,000 Unit/5 ml Susp Udcup] 500,000 unit PO QID 5 Days # 20 udc 11/11/17 Tiotropium [place] [Spiriva Handihaler 5 Cap/Kit (18 Mcg/Cap)] 1 cap IH DAILY # 1 kit 11/11/17 Warfarin Sodium [Coumadin 2 mg Tablet] 2 mg PO QHS #0 11/11/17 Allergies/Adverse Reactions: Penicillins Allergy (Unknown, Verified 05/17/17 10:40) vancomycin [Vancomycin] Adverse Reaction (Verified 08/24/16 13:13) Review of Systems Constitutional: ABSENT: chills, fever(s), headache(s), weight gain, weight loss Eyes: ABSENT: visual disturbances Ears: ABSENT: hearing changes Cardiovascular: PRESENT: edema. ABSENT: chest pain, dyspnea on exertion, orthropnea, palpitations Respiratory: PRESENT: cough, dyspnea. ABSENT: hemoptysis Gastrointestinal: ABSENT: abdominal pain, constipation, diarrhea, hematemesis, hematochezia, nausea, vomiting Genitourinary: ABSENT: dysuria, hematuria Musculoskeletal: ABSENT: joint swelling Integumentary: ABSENT: rash, wounds Neurological: ABSENT: abnormal gait, abnormal speech, confusion, dizziness, focal weakness, syncope Psychiatric: ABSENT: anxiety, depression, homidical ideation, suicidal ideation Endocrine: ABSENT: cold intolerance, heat intolerance, polydipsia, polyuria Hematologic/Lymphatic: ABSENT: easy bleeding, easy bruising Physical Exam Vital Signs: Temp Pulse Resp BP Pulse Ox 27 H 135/49 H 100 11/12/17 19:00 11/12/17 18:49 11/12/17 19:00 General appearance: PRESENT: obese Head exam: PRESENT: normocephalic Eye exam: PRESENT: other - Patient wearing shades. ABSENT: scleral icterus Ear exam: PRESENT: normal external ear exam Mouth exam: PRESENT: moist Neck exam: ABSENT: carotid bruit, JVD, lymphadenopathy, thyromegaly Respiratory exam: PRESENT: clear to auscultation dipti. ABSENT: rales, rhonchi, wheezes Cardiovascular exam: PRESENT: RRR. ABSENT: diastolic murmur, rubs, systolic murmur Pulses: PRESENT: normal dorsalis pedis pul Vascular exam: PRESENT: normal capillary refill GI/Abdominal exam: PRESENT: normal bowel sounds, soft. ABSENT: distended, guarding, mass, organolmegaly, rebound, tenderness Rectal exam: PRESENT: deferred Extremities exam: PRESENT: full ROM, other - Patient with generalized edema pitting in his right lower extremity bilateral thighs and sacrum. ABSENT: calf tenderness, clubbing, pedal edema Musculoskeletal exam: PRESENT: other - Left prosthetic leg Neurological exam: PRESENT: alert, awake, oriented to person, oriented to place , oriented to time, oriented to situation, CN II-XII grossly intact. ABSENT: motor sensory deficit Psychiatric exam: PRESENT: appropriate affect, normal mood. ABSENT: homicidal ideation, suicidal ideation Skin exam: PRESENT: dry, intact, warm. ABSENT: cyanosis, rash Results Laboratory Results: 11/12/17 11/12/17 11/12/17 18:04 18:04 18:04 WBC 9.5 RBC 3.52 L Hgb 10.8 L Hct 33.1 L MCV 94 MCH 30.8 MCHC 32.7 RDW 18.6 H Plt Count 93 L Total Counted 100 Seg Neuts % (Manual) 71 Band Neutrophils % 2 L Lymphocytes % (Manual) 11 L Monocytes % (Manual) 13 Eosinophils % (Manual) 3 Basophils % (Manual) 0 Abs Neuts (Manual) 6.9 Abs Lymphs (Manual) 1.0 Abs Monocytes (Manual) 1.2 Absolute Eos (Manual) 0.3 Abs Basophils (Manual) 0.0 Poikilocytosis 1+ Anisocytosis 2+ PT INR Sodium 142.1 Potassium 4.5 Chloride 105 Carbon Dioxide 34 H Anion Gap 3 L BUN 62 H Creatinine 2.31 H Est GFR ( Amer) 33 L Est GFR (Non-Af Amer) 27 L Glucose 191 H Calcium 8.4 Total Bilirubin 0.6 Direct Bilirubin 0.6 H Creatine Kinase 40 L CK-MB (CK-2) 1.79 Troponin I 0.044 NT-Pro-B Natriuret Pep 2400 H Total Protein 5.0 L Albumin 2.7 L 11/12/17 18:04 WBC RBC Hgb Hct MCV MCH MCHC RDW Plt Count Total Counted Seg Neuts % (Manual) Band Neutrophils % Lymphocytes % (Manual) Monocytes % (Manual) Eosinophils % (Manual) Basophils % (Manual) Abs Neuts (Manual) Abs Lymphs (Manual) Abs Monocytes (Manual) Absolute Eos (Manual) Abs Basophils (Manual) Poikilocytosis Anisocytosis PT 24.3 H INR 2.06 Sodium Potassium Chloride Carbon Dioxide Anion Gap BUN Creatinine Est GFR ( Amer) Est GFR (Non-Af Amer) Glucose Calcium Total Bilirubin Direct Bilirubin Creatine Kinase CK-MB (CK-2) Troponin I NT-Pro-B Natriuret Pep Total Protein Albumin Impressions: Chest X-Ray 11/12/17 18:15 IMPRESSION: HEART ENLARGED WITHOUT FAILURE. NO OTHER SIGNIFICANT RADIOGRAPHIC FINDING IN THE CHEST. Assessment & Plan - Diagnosis (1) Acute on chronic systolic heart failure Plan: Patient with known history of congestive heart failure. Patient has a EF of 30- 35% seen on echo completed on 10/05/2017. Patient on beta-stalin, diuretic, vasodilators patient not on TAMARA or ARB due to his labile renal function. As stated before if patient does not respond to the metolazone and Bumex. Patient may benefit from a dobutamine and Lasix drip. Monitor ins and outs and daily weights. Place patient on a fluid restriction. Encouraged low-sodium diet. (2) Acute on chronic diastolic heart failure Is this a current diagnosis for this admission?: Yes Plan: Patient with grade 3 diastolic dysfunction seen on echo 10/05/2017. Please refer to management as stated above in acute on chronic systolic heart failure. (3) Anasarca Is this a current diagnosis for this admission?: Yes Plan: Patient anasarca will most likely due to his chronic renal disease and is heart failure. Patient currently started on Bumex with metolazone. If this does not produce adequate urine output and renal function is suffering patient may benefit from a dobutamine drip along with a Lasix drip. (4) Anemia Qualifiers: Other causes of anemia: chronic disease, other Is this a current diagnosis for this admission?: Yes Plan: Anemia possibly secondary to his CKD stage III. Will continue to monitor (5) Chronic atrial fibrillation Is this a current diagnosis for this admission?: Yes Plan: Patient with chronic atrial fibrillation. Patient currently on Multaq and Coumadin. Patient PT is 24.3. Patient INR is 2.06. Will continue to monitor. (6) Chronic kidney disease, stage 3 Is this a current diagnosis for this admission?: Yes Plan: Patient creatinine is fairly stable. Continue to monitor closely especially with the use of diuretics. 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 Will also start sliding scale insulin. (8) Elevated troponin I level Is this a current diagnosis for this admission?: Yes Plan: Likely due to CHF exacerbation with volume overload. Patient does not complain of any chest pain at this time. - Time Time Spent: 50 to 70 Minutes Anticipated discharge: Home Within: within 72 hours - Inpatient Certification Medical Necessity: Significant Comorbidiites Make Outpatient Treatment Too Risky , Need Close Monitoring Due to Risk of Patient Decompensation, Other - Patient is severely volume overload overloaded and will require several days of diuresis prior to discharge home. Patient is short of breath with minimal activity.
[2017-11-13] MEDS: TAMSULOSIN HCL 0.4 MG CAP.SR.24H PO SCH ×2 (02:11→21:29)
[2017-11-13] MEDS: PREGABALIN 75 MG CAPSULE PO SCH ×3 (02:13→21:28)
[2017-11-13] MEDS: RANOLAZINE 500 MG TAB.SR.12H PO SCH ×3 (02:13→21:28)
[2017-11-13] MEDS: FINASTERIDE 5 MG TABLET PO SCH ×2 (02:14→21:29)
[2017-11-13] MEDS: ATORVASTATIN CALCIUM 40 MG TABLET PO SCH ×2 (02:14→21:29)
[2017-11-13] MEDS: HYDRALAZINE HCL 25 MG TABLET PO SCH ×3 (02:16→21:28)
[2017-11-13] MEDS: OXYCODONE-ACETAMINOPHEN 5-325 MG TABLET PO PRN ×3 (02:16→21:41)
[2017-11-13] MEDS ORDERED: INSULIN GLARGINE,HUM.REC.ANLOG 300 UNIT/3 ML INSULN.PEN SUBCUT ONE (03:28)
[2017-11-13] MEDS ORDERED: METOLAZONE 5 MG TABLET ONE (03:29)
[2017-11-13] MEDS: DRONEDARONE HYDROCHLORIDE 400 MG TABLET PO SCH ×3 (03:58→21:28)
[2017-11-13] MEDS: INSULIN GLARGINE,HUM.REC.ANLOG 300 UNIT/3 ML INSULN.PEN SUBCUT SCH ×2 (03:59→22:20)
[2017-11-13 04:27] LABS: HEMATOCRIT 32.5 % (37.9-51.0); HEMOGLOBIN 10.7 g/dL (13.5-17.0); MEAN CORPUSCULAR HEMOGLOBIN 31.2 pg (27.0-33.4); MEAN CORPUSCULAR HGB CONC 32.9 g/dL (32.0-36.0); MEAN CORPUSCULAR VOLUME 95 fl (80-97); RED BLOOD COUNT 3.44 10^6/uL (4.35-5.55); RED CELL DISTRIBUTION WIDTH 18.6 % (11.5-14.0); WHITE BLOOD COUNT 6.1 10^3/uL (4.0-10.5)
[2017-11-13 04:36] LABS: INTERNATIONAL RATION (INR) 2.01; PROTHROMBIN TIME 23.9 SEC (11.4-15.4)
[2017-11-13 04:38] LABS: ALANINE AMINOTRANSFERASE 29 U/L (21-72); ALBUMIN 2.9 g/dL (3.5-5.0); ALKALINE PHOSPHATASE 94 U/L (38-126); ANION GAP 7 (5-19); ASPARTATE AMINO TRANSFERASE 21 U/L (17-59); BILIRUBIN,DIRECT 0.2 mg/dL (0.0-0.4); BILIRUBIN,TOTAL 0.4 mg/dL (0.2-1.3); BLOOD UREA NITROGEN 64 mg/dL (7-20); CALCIUM 8.2 mg/dL (8.4-10.2); CARBON DIOXIDE 33 mmol/L (22-30); CHLORIDE 100 mmol/L (98-107); POTASSIUM 4.9 mmol/L (3.6-5.0); SODIUM 140.1 mmol/L (137-145); TOTAL PROTEIN 4.9 g/dL (6.3-8.2)
[2017-11-13 04:44] LABS: GLUCOSE 547 mg/dL (75-110)
[2017-11-13 05:06] LABS: ABSOLUTE LYMPHOCYTES# (MANUAL) 0.4 10^3/uL (0.5-4.7); ABSOLUTE MONOCYTES # (MANUAL) 0.4 10^3/uL (0.1-1.4); ABSOLUTE NEUTROPHILS# (MANUAL) 5.4 10^3/uL (1.7-8.2); BAND NEUTROPHILS % (MANUAL) 2 % (3-5); BASOPHILS % (MANUAL) 0 % (0-2); EOSINOPHILS % (MANUAL) 0 % (0-6); LYMPHOCYTES % (MANUAL) 6 % (13-45); MONOCYTES % (MANUAL) 6 % (3-13); SEGMENTED NEUTROPHILS % (MAN) 86 % (42-78); TOTAL CELLS COUNTED 100
[2017-11-13 05:10] LABS: PLATELET COMMENT DECREASED
[2017-11-13 05:12] LABS: OVALOCYTES SLIGHT; POIKILOCYTOSIS SLIGHT; TEAR DROP CELLS SLIGHT
[2017-11-13 05:13] LABS: PLATELET COUNT 79 10^3/uL (150-450)
[2017-11-13] MEDS: INSULIN LISPRO 100 UNIT/ML 3 ML VIAL SUBCUT PRN ×2 (05:50→12:01)
[2017-11-13] MEDS: LANSOPRAZOLE 30 MG TAB.RAP.DR PO SCH (06:33)
[2017-11-13] MEDS: HYDROCODONE/ACETAMINOPHEN 10-325 MG TABLET PO PRN ×2 (08:44→21:42)
[2017-11-13] MEDS: METOLAZONE 5 MG TABLET PO SCH (10:13)
[2017-11-13] MEDS: ASPIRIN 81 MG TABLET, ENT COATED PO SCH (10:17)
[2017-11-13] MEDS: SENNOSIDES/DOCUSATE 8.6-50 MG 1 EACH TABLET PO SCH ×2 (10:17→18:29)
[2017-11-13] MEDS: CHOLECALCIFEROL (D3) 400 UNIT TABLET PO SCH (10:18)
[2017-11-13] MEDS: NYSTATIN 500000 UNIT/5 ML UDCUP PO SCH ×4 (10:18→21:42)
[2017-11-13] MEDS: ISOSORBIDE MONONITRATE 30 MG TAB.ER.24H PO SCH (10:18)
[2017-11-13] MEDS: MAGNESIUM OXIDE 400 MG TABLET PO SCH ×2 (10:19→18:29)
[2017-11-13] MEDS: NITROGLYCERIN 2.5 MG (0.1 MG/HR) PATCH.TD24 TD SCH (10:19)
[2017-11-13] MEDS: METOPROLOL SUCCINATE 50 MG TAB.SR.24H PO SCH (10:19)
[2017-11-13] MEDS: ALLOPURINOL 300 MG TABLET PO SCH (10:20)
[2017-11-13] MEDS: DOXAZOSIN MESYLATE 1 MG TABLET PO SCH (10:20)
[2017-11-13] MEDS: MULTIVITAMIN TABLET PO SCH (10:21)
[2017-11-13] MEDS: BUMETANIDE INJ/PF 1 MG/4 ML SDV IV SCH ×2 (10:21→22:20)
[2017-11-13] MEDS: BUDESONIDE/FORMOTEROL 160-4.5 MCG 60 PUFF/6 GM MDI IH SCH ×2 (10:22→21:30)
--- NOTE | 2017-11-13 13:00 | PDOC CONSULTATION ---
Consultation Consult Date: 11/13/17 Attending physician:: ARPAN SCHAFER Consult reason:: Shortness of breath and increasing pedal edema History of Present Illness Admission Date/PCP: 11/12/17 21:53 RUY CARTWRIGHT MD Patient complains of: Increasing pedal edema History of Present Illness: TRUONG PINK is a 77 year old male with a history of atrial fibrillation on Multaq and Coumadin, and AICD with pacemaker, peripheral vascular disease, ischemic heart disease post coronary artery bypass graft, congestive heart failure with a EF of 30-35% and moderate diastolic failure with pulmonary hypertension, obstructive sleep apnea, diabetes and stage III renal failure, posttraumatic splenectomy and [place] with ascites presenting with increased swelling and shortness of breath. Patient states he was swollen on day of discharge and was not feeling well. Patient states now the swelling is worse. He states that it was to the point that the fluid was oozing through his dressing. Swelling in his legs, thighs and back. Patient states he cannot walk without becoming extremely short of breath. Patient states upon presentation to the ED he voided 1 L. Patient was given 60 of IV Lasix and it did nothing for him in the ED. Patient was also placed on BiPAP. Patient states something has to be done.. Patient complaining of pain that is okay with taking Percocet. ED chest x-ray is clear. Patient was noted to have an elevated BNP and his creatinine was slightly increased from 2.24 to 2.31 previous admission. Hospitalist was called to admit patient for CHF exacerbation and anasarca. This history was reviewed, it patient on repeated questioning denied any chest pain. He has noted increasing shortness of breath and pedal edema. He denied any recent defibrillator discharges. He does tell me that he has just about 2- 3 months left on end-of-life of the battery on his current defibrillator. He just knocked has been able to travel to [place] to have a battery replaced. Past Medical History Cardiac Medical History: Reports: Atrial Fibrillation, Congestive Heart Failure , Coronary Artery Disease, Myocardial Infarction - x6, Hyperlipidema, Hypertension, Peripheral Vascular Disease, Pulmonary Embolism Pulmonary Medical History: Reports: Asthma, Bronchitis, Chronic Obstructive Pulmonary Disease (COPD), Sleep Apnea - without c-pap Denies: Pneumonia, Respiratory Failure, Tuberculosis Neurological Medical History: Denies: Seizures Endocrine Medical History: Reports: Diabetes Mellitus Type 2 Denies: Hyperthyroidism, Hypothyroidism Renal/ Medical History: Denies: End Stage Renal Disease Malignancy Medical History: Denies: Leukemia, Lung Cancer GI Medical History: Reports: Gastroesophageal Reflux Disease Denies: Hepatitis, Hiatal Hernia Musculoskeltal Medical History: Reports: Arthritis Denies: Fibromyalgia Psychiatric Medical History: Denies: Dementia, Depression Hematology: Denies: Anemia, Hemophilia, Sickle Cell Disease Infectious Medical History: Denies: HIV Past Surgical History Past Surgical History: Reports: Cardiac Catheterization, Coronary Artery Bypass Graft - quadruple, Coronary Stent, Internal Defibrillator, Orthopedic Surgery - Left BKA, Pacemaker Denies: Appendectomy, Cholecystectomy, Gastric Bypass Surgery, Herniorrhaphy , Tonsillectomy Social History Information Source: Patient Lives with: Family Smoking Status: Former Smoker Frequency of Alcohol Use: None Hx Recreational Drug Use: No Drugs: None Hx Prescription Drug Abuse: No - Advance Directive Resuscitation Status: Full Code Family History Family History: CAD, COPD Parental Family History Reviewed: Yes Children Family History Reviewed: Yes Sibling(s) Family History Reviewed.: Yes Medication/Allergy Home Medications: Albuterol Sulfate [Ventolin HFA MDI 18 GM] 1 puff IH Q6HP PRN 11/13/17 Allopurinol [Zyloprim 300 mg Tablet] 150 mg PO DAILY 11/13/17 Aspirin [Ecotrin 81 mg EC Tablet] 81 mg PO DAILY 11/13/17 Atorvastatin Calcium [Lipitor 40 mg Tablet] 40 mg PO QHS 11/13/17 Budesonide/Formoterol Fumarate [Symbicort 160-4.5 Mcg Inhaler] 2 puff IH Q12 07/21 Bumetanide [Bumex 2 mg Tablet] 2 mg PO DAILY 11/13/17 Cholecalciferol (Vitamin D3) [Vitamin D3 400 Unit Tablet] 400 unit PO DAILY 07/21 Dronedarone Hydrochloride [Multaq 400 mg Tablet] 400 mg PO Q12 11/13/17 Finasteride [Proscar 5 mg Tablet] 5 mg PO QHS 11/13/17 Hydralazine HCl [Apresoline 25 mg Tablet] 25 mg PO Q12 11/13/17 Hydrocodone/Acetaminophen [Hydrocodone-Acetamin 10-325 mg] 1 tab PO Q6HP PRN 07/21 Insulin Glargine,Hum.rec.anlog [Lantus Solostar] 20 unit SQ QHS 11/13/17 Isosorbide Mononitrate [Imdur 30 mg Tablet.er] 90 mg PO DAILY 11/13/17 Magnesium Oxide [Mag-Ox 400 mg Tablet] 400 mg PO BID 11/13/17 Metoprolol Succinate [Toprol Xl 50 mg Tab.sr] 50 mg PO DAILY 11/13/17 Montelukast Sodium [Singulair 10 mg Tablet] 10 mg PO QHS 11/13/17 Multivitamin [Tab-A-Maris (Multiple Vitamin) Tablet] 1 tab PO DAILY 11/13/17 Omeprazole 20 mg PO DAILY 11/13/17 Polyethylene Glycol 3350 [Miralax Powder 17 gm/Packet] 17 gm PO QPMP PRN Pregabalin [Lyrica] 150 mg PO Q12 11/13/17 Ranolazine [Ranexa 500 mg Tab.sr] 1,000 mg PO Q12 11/13/17 Sennosides/Docusate 8.6-50 mg [Senna Plus Tablet] 1 tab PO BID 11/13/17 Tamsulosin HCl [Flomax 0.4 mg Cap.sr] 0.8 mg PO QHS 11/13/17 Terazosin HCl 1 mg PO DAILY 11/13/17 Tiotropium [place] [Spiriva Handihaler 5 Cap/Kit (18 Mcg/Cap)] 1 puff IH DAILY 11/13/17 Warfarin Sodium [Coumadin 2 mg Tablet] 2 mg PO QHS 11/13/17 Zolpidem Tartrate [Ambien 5 mg Tablet] 5 mg PO HSP PRN 11/13/17 Allergies/Adverse Reactions: Penicillins Allergy (Unknown, Verified 05/17/17 10:40) vancomycin [Vancomycin] Adverse Reaction (Verified 08/24/16 13:13) Review of Systems Review of Systems: Please see history of present illness and past medical history as wall. Constitutional: No fever or chills reported. Patient has noted losing of fluid from the right lower extremity. Head : No recent chronic headaches, recent head injury. Eyes: No recent eye pain, diplopia, redness, discharge, acute visual changes. Ears: No recent chronic ear pain, acute hearing loss, ear discharge. Oral cavity: No recent ulcerations, bleeding, oral cavity discomfort. Neck: No recent acute neck pain reported. Hematologic: No recent easy bruising or bleeding or hematologic malignancy reported. Lymphatic: No recent lymphatic malignancy, chronic lymphadenopathy reported yet Cardiovascular system review: See history of present illness. Respiratory system review: No recent chronic cough, hemoptysis, blood clots in the lungs reported. Increasing pedal edema and increasing shortness of breath. Gastrointestinal system review: Negative for any recent acute or chronic abdominal pain, hematemesis, melena, recent change in bowel habits. Genitourinary system review: No recent acute or chronic hematuria, flank pain, UTI etc. reported. Skin system review: Negative for any recent abnormal bruising, no rash, no pruritus reported. Neurologic: No prior history of strokes, mini strokes, seizure disorder. Psychologic: No history of major psychosis or major depression reported. Musculoskeletal: Minor aches and pains reported. No acute joint swelling reported. Endocrine: No recent polyuria, polydipsia, recent heat or cold intolerance. Physical Exam Vital Signs: Temp Pulse Resp BP Pulse Ox 20 154/59 H 100 11/13/17 11:59 11/13/17 11:59 11/13/17 11:59 Intake & Output 11/12/17 11/13/17 11/14/17 06:59 06:59 06:59 Output Total 1800 Balance -1800 Exam: GENERAL: well-nourished and mild respiratory distress. Alert and oriented x3 HEAD: Atraumatic, normocephalic. EYES: Pupils equal round and reactive to light, extraocular movements intact, sclera anicteric, conjunctiva are normal. ENT: TMs normal, nares patent, oropharynx clear without exudates. Moist mucous membranes. No oral ulcerations or bleeding gums noted NECK: supple without lymphadenopathy. Trachea is central. No cervical or axillary lymphadenopathy noted. Carotids are 2+, JVD 12 cm LUNGS: Respiration seems nonlabored, no significant accessory muscle action noted. Bilateral coarse crackles noted. Mild wheezes rales or rhonchi noted. No significant dullness noted on percussion. CHEST: Palpation of the chest wall shows no significant chest wall tenderness. No other significant abnormalities noted. 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 ABDOMEN: Soft, no significant tenderness appreciated, normoactive bowel sounds. No guarding, no rebound. No rigidity noted . No masses appreciated. EXTREMITIES: left below the knee amputation. The right leg has wound that is is covered up. However patient did undo the dressing and it did show a superficial ulceration. At least 3+ edema noted of the right lower extremity with some superficial bruising and oozing of fluid. NEUROLOGICAL: Focused neurological exam showed no significant neurologic deficit. Normal speech, no focal weakness appreciated. PSYCH: Normal mood, normal affect. Judgment and insight within normal limits. SKIN: No significant ecchymosis, rash, signs of pruritus noted. Patient does have some ulcerations, which is superficial and covered with bandages. MUSCULOSKELETAL EXAM: No significant joint swelling noted. Results Laboratory Results: 11/13/17 04:10 11/13/17 04:10 11/13/17 11/13/17 04:10 04:10 WBC 6.1 RBC 3.44 L Hgb 10.7 L Hct 32.5 L MCV 95 MCH 31.2 MCHC 32.9 RDW 18.6 H Plt Count 79 L Seg Neutrophils % Not Reportable Lymphocytes % Not Reportable Monocytes % Not Reportable Eosinophils % Not Reportable Basophils % Not Reportable Absolute Neutrophils Not Reportable Absolute Lymphocytes Not Reportable Absolute Monocytes Not Reportable Absolute Eosinophils Not Reportable Absolute Basophils Not Reportable Sodium 140.1 Potassium 4.9 Chloride 100 Carbon Dioxide 33 H Anion Gap 7 BUN 64 H Creatinine 2.31 H Est GFR ( Amer) 33 L Est GFR (Non-Af Amer) 27 L Glucose 547 H* Calcium 8.2 L Magnesium 1.8 Total Bilirubin 0.4 AST 21 ALT 29 Alkaline Phosphatase 94 Total Protein 4.9 L Albumin 2.9 L 11/12/17 23:18 Troponin I 0.045 EKG Comments: Twelve-lead EKG shows atrial paced rhythm. Impressions: Chest X-Ray 11/12/17 18:15 IMPRESSION: HEART ENLARGED WITHOUT FAILURE. NO OTHER SIGNIFICANT RADIOGRAPHIC FINDING IN THE CHEST. Assessment & Plan - Diagnosis (1) CHF exacerbation Is this a current diagnosis for this admission?: Yes (2) COPD (chronic obstructive pulmonary disease) Qualifiers: COPD type: emphysema Emphysema type: unspecified Qualified Code(s): J43.9 - Emphysema, unspecified Is this a current diagnosis for this admission?: Yes (3) Coronary artery disease Qualifiers: Coronary Disease-Associated Artery/Lesion type: unspecified vessel or lesion type [place] vs. transplanted heart: [place] heart Associated angina: angina presence unspecified Qualified Code(s): I25.10 - Atherosclerotic heart disease of [place] coronary artery without angina pectoris Is this a current diagnosis for this admission?: Yes (4) DM type 2 (diabetes mellitus, type 2) Qualifiers: Diabetes mellitus complication status: with unspecified complications Diabetes mellitus intermediate card tender insulin use: unspecified intermediate card tender insulin use status Qualified Code(s): E11.8 - Type 2 diabetes mellitus with unspecified complications Is this a current diagnosis for this admission?: Yes (5) Hyperlipidemia Qualifiers: Hyperlipidemia type: unspecified Qualified Code(s): E78.5 - Hyperlipidemia , unspecified Is this a current diagnosis for this admission?: Yes (6) Hypertension Qualifiers: Hypertension type: essential hypertension Qualified Code(s): I10 - Essential (primary) hypertension Is this a current diagnosis for this admission?: Yes (7) PVD (peripheral vascular disease) Is this a current diagnosis for this admission?: Yes (8) History of implantable cardioverter-defibrillator (ICD) placement Is this a current diagnosis for this admission?: Yes - Notes Notes: CHF exacerbation: Agree with IV diuretic therapy. Will try optimize therapy for underlying cardiomyopathy. Consider entresto therapy that had no contraindication. May need to monitor renal functions very closely. COPD: Agree with current management plans. Coronary artery disease: Currently symptomatically stable without any angina symptoms. Diabetes: Recommend good management of diabetes but avoid any hypo-or hyperglycemia. Hypertension: Blood pressure goal should be 135/85 or less but could well be more liberal in this patient because of Multiple other comorbidities. PVD with wound infection: Recommend vascular surgery consultation, wound care consultation. History of ICD placement: Patient tells me that he is due for replacement of the battery of the defibrillator. Recommend interrogation and possibly asking local surgeon to replace it if they are willing to do so. Otherwise patient would need to go to [place] for battery replacement. May consider venous duplex ultrasound study of the right lower extremity. - Time Time Spent: 30 to 50 Minutes - CODE STATUS was discussed, patient remains full code. Surrogate decision-maker patient's friends. Multiple medical problems were addressed. More than 50% of the time spent coordinating care, discussing management plans with involved caregivers. Management plans discussed with involved personnels. Medical decision making was of moderate to high complexity , patient's has multiple comorbidities. Medications reviewed and adjusted accordingly: Yes
--- NOTE | 2017-11-13 15:42 | PDOC PROGRESS REPORT ---
Subjective Progress Note for:: 11/13/17 Subjective:: The patient is a very pleasant 77-year-old gentleman with a history of Atrial fibrillation on Coumadin and Multitaq AICD Peripheral vascular disease Ischemic heart disease status post CABG Systolic congestive heart failure with a left ventricular ejection fraction of 30-35% Moderate diastolic CHF Pulmonary hypertension Obstructive sleep apnea Stage III chronic kidney disease Diabetes, insulin-dependent He presented to the hospital with increasing swelling and shortness of breath and was started on intravenous Bumex and Zaroxolyn. Reason For Visit: COPD EXCAERBATION Physical Exam Vital Signs: Temp Pulse Resp BP Pulse Ox 19 164/78 H 99 11/13/17 07:00 11/13/17 06:35 11/13/17 07:00 Intake & Output 11/12/17 11/13/17 11/14/17 06:59 06:59 06:59 Output Total 1100 Balance -1100 Additional comments: Elderly gentleman sitting up in bed not in acute distress HEENT: Pupils equal reactive to light moist pink oropharyngeal mucosa Lungs: Bilateral crackles and rhonchi normal respiratory effort Cardiac: S1-S2 regular no murmurs heard plus plus plus pitting peripheral edema he has a left prosthetic leg. Abdomen: Soft obese no focal tenderness normal bowel sounds Skin: He has a blister on his right leg which has ruptured. No evidence of infection. Neurologic: He is awake and alert. She will droop. Speech is clear and fluent. Results Laboratory Results: 11/13/17 04:10 11/13/17 04:10 11/13/17 11/13/17 04:10 04:10 WBC 6.1 RBC 3.44 L Hgb 10.7 L Hct 32.5 L MCV 95 MCH 31.2 MCHC 32.9 RDW 18.6 H Plt Count 79 L Seg Neutrophils % Not Reportable Lymphocytes % Not Reportable Monocytes % Not Reportable Eosinophils % Not Reportable Basophils % Not Reportable Absolute Neutrophils Not Reportable Absolute Lymphocytes Not Reportable Absolute Monocytes Not Reportable Absolute Eosinophils Not Reportable Absolute Basophils Not Reportable Sodium 140.1 Potassium 4.9 Chloride 100 Carbon Dioxide 33 H Anion Gap 7 BUN 64 H Creatinine 2.31 H Est GFR ( Amer) 33 L Est GFR (Non-Af Amer) 27 L Glucose 547 H* Calcium 8.2 L Magnesium 1.8 Total Bilirubin 0.4 AST 21 ALT 29 Alkaline Phosphatase 94 Total Protein 4.9 L Albumin 2.9 L 11/12/17 23:18 Troponin I 0.045 Impressions: Chest X-Ray 11/12/17 18:15 IMPRESSION: HEART ENLARGED WITHOUT FAILURE. NO OTHER SIGNIFICANT RADIOGRAPHIC FINDING IN THE CHEST. Assessment & Plan - Diagnosis (1) Anasarca Is this a current diagnosis for this admission?: Yes Plan: See below. Low sodium diet. (2) Acute and chronic respiratory failure Qualifiers: Respiratory failure complication: hypoxia and hypercapnia Qualified Code(s) : J96.21 - Acute and chronic respiratory failure with hypoxia; J96.22 - Acute and chronic respiratory failure with hypercapnia; J96.22 - Acute and chronic respiratory failure with hypercapnia; J96.22 - Acute and chronic respiratory failure with hypercapnia Is this a current diagnosis for this admission?: Yes (3) Acute kidney injury superimposed on CKD Is this a current diagnosis for this admission?: Yes Plan: Monitor renal function closely. Continue to monitor intake and output (4) Acute on chronic diastolic heart failure Is this a current diagnosis for this admission?: Yes (5) Acute on chronic systolic heart failure Is this a current diagnosis for this admission?: Yes Plan: Continue diuresis. Low-sodium diet. Monitor intake and output. Cardiology input appreciated. Monitor renal function closely. (6) Chronic anticoagulation Is this a current diagnosis for this admission?: Yes (7) Chronic atrial fibrillation Is this a current diagnosis for this admission?: Yes (8) Chronic kidney disease, stage 3 Is this a current diagnosis for this admission?: Yes (9) Coronary artery disease Qualifiers: Coronary Disease-Associated Artery/Lesion type: unspecified vessel or lesion type [place] vs. transplanted heart: [place] heart Associated angina: angina presence unspecified Qualified Code(s): I25.10 - Atherosclerotic heart disease of [place] coronary artery without angina pectoris Is this a current diagnosis for this admission?: Yes Plan: Continue aspirin and statin imDur hydralazine beta-stalin (10) Hyperlipidemia Qualifiers: Hyperlipidemia type: unspecified Qualified Code(s): E78.5 - Hyperlipidemia , unspecified Is this a current diagnosis for this admission?: Yes Plan: Continue statin (11) Hypertension Qualifiers: Hypertension type: essential hypertension Qualified Code(s): I10 - Essential (primary) hypertension Is this a current diagnosis for this admission?: Yes Plan: On hydralazine, Imdur and metoprolol. (12) Insulin dependent diabetes mellitus Is this a current diagnosis for this admission?: Yes Plan: Reticulocyte diet, Lantus and sliding scale. (13) PVD (peripheral vascular disease) Is this a current diagnosis for this admission?: Yes Plan: Continue aspirin and statin. - Time Time Spent with patient: 35 or more minutes
[2017-11-13] MEDS: INSULIN REG, HUMAN 100 UNIT/ML 3 ML VIAL (PYX) SUBCUT PRN (18:29)
[2017-11-13] MEDS: MONTELUKAST SODIUM 10 MG TABLET PO SCH (21:28)
[2017-11-13] MEDS: WARFARIN SODIUM 2 MG TABLET PO SCH (21:28)
[2017-11-13] MEDS ORDERED: BUMETANIDE INJ/PF 1 MG/4 ML SDV ONE (21:49)
[2017-11-13] MEDS ORDERED: (PENDING PHARMACY ID) (Warfarin Sodium 2 MG) PO SCH (22:00)
[2017-11-14] MEDS: OXYCODONE-ACETAMINOPHEN 5-325 MG TABLET PO PRN ×4 (03:20→22:05)
[2017-11-14] MEDS: LANSOPRAZOLE 30 MG TAB.RAP.DR PO SCH (06:03)
--- NOTE | 2017-11-14 09:05 | EKG REPORT ---
SEVERITY:- ABNORMAL ECG - ATRIAL-PACED COMPLEXES VENTRICULAR PREMATURE COMPLEX NONSPECIFIC INTRAVENTRICULAR CONDUCTION DELAY INFERIOR INFARCT, AGE INDETERMINATE CONSIDER ANTERIOR INFARCT LATERAL LEADS ARE ALSO INVOLVED : Confirmed by: Magi Garcia 14-Nov-2017 09:05:31
[2017-11-14] MEDS: BUDESONIDE/FORMOTEROL 160-4.5 MCG 60 PUFF/6 GM MDI IH SCH ×2 (10:16→22:05)
[2017-11-14] MEDS: DRONEDARONE HYDROCHLORIDE 400 MG TABLET PO SCH ×2 (10:17→22:03)
[2017-11-14] MEDS: BUMETANIDE INJ/PF 1 MG/4 ML SDV IV SCH ×2 (10:17→22:05)
[2017-11-14] MEDS: RANOLAZINE 500 MG TAB.SR.12H PO SCH ×2 (10:18→22:03)
[2017-11-14] MEDS: ALLOPURINOL 300 MG TABLET PO SCH (10:18)
[2017-11-14] MEDS: NYSTATIN 500000 UNIT/5 ML UDCUP PO SCH ×4 (10:18→21:57)
[2017-11-14] MEDS: METOLAZONE 5 MG TABLET PO SCH (10:18)
[2017-11-14] MEDS: SENNOSIDES/DOCUSATE 8.6-50 MG 1 EACH TABLET PO SCH ×2 (10:18→17:40)
[2017-11-14] MEDS: MAGNESIUM OXIDE 400 MG TABLET PO SCH ×2 (10:19→17:40)
[2017-11-14] MEDS: PREGABALIN 75 MG CAPSULE PO SCH ×2 (10:19→22:04)
[2017-11-14] MEDS: ASPIRIN 81 MG TABLET, ENT COATED PO SCH (10:19)
[2017-11-14] MEDS: ISOSORBIDE MONONITRATE 30 MG TAB.ER.24H PO SCH (10:20)
[2017-11-14] MEDS: DOXAZOSIN MESYLATE 1 MG TABLET PO SCH (10:20)
[2017-11-14] MEDS: CHOLECALCIFEROL (D3) 400 UNIT TABLET PO SCH (10:20)
[2017-11-14] MEDS: HYDRALAZINE HCL 25 MG TABLET PO SCH ×2 (10:20→22:02)
[2017-11-14] MEDS: NITROGLYCERIN 2.5 MG (0.1 MG/HR) PATCH.TD24 TD SCH (10:21)
[2017-11-14] MEDS: METOPROLOL SUCCINATE 50 MG TAB.SR.24H PO SCH (10:22)
[2017-11-14] MEDS: MULTIVITAMIN TABLET PO SCH (10:22)
[2017-11-14] MEDS: INSULIN REG, HUMAN 100 UNIT/ML 3 ML VIAL (PYX) SUBCUT PRN ×3 (10:23→17:41)
--- NOTE | 2017-11-14 12:45 | PDOC PROGRESS REPORT ---
Subjective Progress Note for:: 11/14/17 Subjective:: Patient seems to be doing better with gradual improvement. Pt is denying any chest arm or neck discomfort. Patient denying any PND, orthopnea. Patient denied any sustained palpitations, dizziness, syncope, near syncope. Patient denying any fever chills. Patient denying any other significant discomfort. Patient is atrial paced rhythm. Review of systems: Rest review of systems negative. Medications: Medications have been reviewed. Reason For Visit: COPD EXCAERBATION Physical Exam Vital Signs: Temp Pulse Resp BP Pulse Ox 97.8 F 60 18 146/56 H 100 11/14/17 08:11 11/14/17 08:11 11/14/17 08:11 11/14/17 08:11 11/14/17 08:11 Intake & Output 11/13/17 11/14/17 11/15/17 06:59 06:59 06:59 Intake Total 658 Output Total 4500 Balance -3842 Weight 114.2 kg Exam: GENERAL: well-nourished and mild respiratory distress. Alert and oriented x3 HEAD: Atraumatic, normocephalic. EYES: Pupils equal round and reactive to light, extraocular movements intact, sclera anicteric, conjunctiva are normal. ENT: TMs normal, nares patent, oropharynx clear without exudates. Moist mucous membranes. No oral ulcerations or bleeding gums noted NECK: supple without lymphadenopathy. Trachea is central. No cervical or axillary lymphadenopathy noted. Carotids are 2+, JVD 8-10 cm LUNGS: Respiration seems nonlabored, no significant accessory muscle action noted. Bilateral coarse crackles noted. Mild wheezes rales or rhonchi noted. No significant dullness noted on percussion. CHEST: Palpation of the chest wall shows no significant chest wall tenderness. No other significant abnormalities noted. 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 ABDOMEN: Soft, no significant tenderness appreciated, normoactive bowel sounds. No guarding, no rebound. No rigidity noted . No masses appreciated. EXTREMITIES: left below the knee amputation. The right leg has wound that is is covered up. At least 2-3+ edema noted of the right lower extremity with some superficial bruising and oozing of fluid. NEUROLOGICAL: Focused neurological exam showed no significant neurologic deficit. Normal speech, no focal weakness appreciated. PSYCH: Normal mood, normal affect. Judgment and insight within normal limits. SKIN: No significant ecchymosis, rash, signs of pruritus noted. Patient does have some ulcerations, which is superficial and covered with bandages. MUSCULOSKELETAL EXAM: No significant joint swelling noted. Results Laboratory Results: 11/13/17 04:10 11/13/17 04:10 11/12/17 23:18 Troponin I 0.045 Impressions: Chest X-Ray 11/12/17 18:15 IMPRESSION: HEART ENLARGED WITHOUT FAILURE. NO OTHER SIGNIFICANT RADIOGRAPHIC FINDING IN THE CHEST. Assessment & Plan - Diagnosis (1) CHF exacerbation Is this a current diagnosis for this admission?: Yes (2) COPD (chronic obstructive pulmonary disease) Qualifiers: COPD type: emphysema Emphysema type: unspecified Qualified Code(s): J43.9 - Emphysema, unspecified Is this a current diagnosis for this admission?: Yes (3) Coronary artery disease Qualifiers: Coronary Disease-Associated Artery/Lesion type: unspecified vessel or lesion type [place] vs. transplanted heart: [place] heart Associated angina: angina presence unspecified Qualified Code(s): I25.10 - Atherosclerotic heart disease of [place] coronary artery without angina pectoris Is this a current diagnosis for this admission?: Yes (4) DM type 2 (diabetes mellitus, type 2) Qualifiers: Diabetes mellitus complication status: with unspecified complications Diabetes mellitus incubator tender insulin use: unspecified incubator tender insulin use status Qualified Code(s): E11.8 - Type 2 diabetes mellitus with unspecified complications Is this a current diagnosis for this admission?: Yes (5) Hyperlipidemia Qualifiers: Hyperlipidemia type: unspecified Qualified Code(s): E78.5 - Hyperlipidemia , unspecified Is this a current diagnosis for this admission?: Yes (6) Hypertension Qualifiers: Hypertension type: essential hypertension Qualified Code(s): I10 - Essential (primary) hypertension Is this a current diagnosis for this admission?: Yes (7) PVD (peripheral vascular disease) Is this a current diagnosis for this admission?: Yes (8) History of implantable cardioverter-defibrillator (ICD) placement Is this a current diagnosis for this admission?: Yes - Notes Notes: Patient noted to be significantly improved on current regimen. Patient on chronic anticoagulation with Coumadin with adequate INR. Patient's medical regimen reviewed and is noted to be very satisfactory. Patient does have significant renal dysfunction, however if philanthropy officer allows may consider adding entresto at low-dose to patient's regimen. CHF exacerbation: Continue with IV diuretic therapy. Continue p.o. Zaroxolyn. Will try optimize therapy for underlying cardiomyopathy. Consider entresto therapy if there are no contraindication. May need to monitor renal functions very closely. COPD: Agree with current management plans. Coronary artery disease: Currently symptomatically stable without any angina symptoms. Diabetes: Recommend good management of diabetes but avoid any hypo-or hyperglycemia. Hypertension: Blood pressure goal should be 135/85 or less but could well be more liberal in this patient because of Multiple other comorbidities. PVD with wound infection: Recommend vascular surgery consultation, wound care consultation. History of ICD placement: Patient tells me that he is due for replacement of the battery of the defibrillator. Recommend interrogation and possibly asking local surgeon to replace it if they are willing to do so. Otherwise patient would need to go to [place] for battery replacement. May consider venous duplex ultrasound study of the right lower extremity. - Time Time with patient: Greater than 35 minutes - CODE STATUS was discussed, patient remains full code. Surrogate decision-maker unchanged. Multiple medical problems were addressed. More than 50% of the time spent coordinating care, discussing management plans with involved caregivers. Management plans discussed with involved personnels. Medical decision making was of moderate to high complexity, patient's has multiple comorbidities. Medications reviewed and adjusted accordingly: Yes
--- NOTE | 2017-11-14 13:07 | PDOC PROGRESS REPORT ---
Subjective Progress Note for:: 11/14/17 Subjective:: The patient is a very pleasant 77-year-old gentleman with a history of Atrial fibrillation on Coumadin and Multitaq AICD Peripheral vascular disease Ischemic heart disease status post CABG Systolic congestive heart failure with a left ventricular ejection fraction of 30-35% Moderate diastolic CHF Pulmonary hypertension Obstructive sleep apnea Stage III chronic kidney disease Diabetes, insulin-dependent He presented to the hospital with increasing swelling and shortness of breath and was started on intravenous Bumex and Zaroxolyn. He reports feeling better today. Swelling has improved. Appetite is good. Denies dyspnea. Reason For Visit: COPD EXCAERBATION Physical Exam Vital Signs: Temp Pulse Resp BP Pulse Ox 97.8 F 60 18 146/56 H 100 11/14/17 08:11 11/14/17 08:11 11/14/17 08:11 11/14/17 08:11 11/14/17 08:11 Intake & Output 11/13/17 11/14/17 11/15/17 06:59 06:59 06:59 Intake Total 658 Output Total 4500 Balance -3842 Weight 114.2 kg Additional comments: Elderly gentleman sitting up comfortably in bed HEENT: Pupils equal reactive to light moist pink oropharyngeal mucosa, no conjunctival discharge Lungs: Bilateral crackles and rhonchi, no accesory muscle use Cardiac: S1-S2 regular, 3+ pitting peripheral edema, L BKA Abdomen: Soft, obese no focal tenderness normal bowel sounds Skin: + blisters on his right leg, one has ruptured. Neurologic: He is awake and alert, No facial droop. Speech is clear and fluent. Results Laboratory Results: 11/13/17 04:10 11/13/17 04:10 11/12/17 23:18 Troponin I 0.045 Impressions: Chest X-Ray 11/12/17 18:15 IMPRESSION: HEART ENLARGED WITHOUT FAILURE. NO OTHER SIGNIFICANT RADIOGRAPHIC FINDING IN THE CHEST. Assessment & Plan - Diagnosis (1) Anasarca Is this a current diagnosis for this admission?: Yes Plan: See below. Low sodium diet.Continue diuresis. Monitor renal function (2) Acute and chronic respiratory failure Qualifiers: Respiratory failure complication: hypoxia and hypercapnia Qualified Code(s) : J96.21 - Acute and chronic respiratory failure with hypoxia; J96.22 - Acute and chronic respiratory failure with hypercapnia; J96.22 - Acute and chronic respiratory failure with hypercapnia; J96.22 - Acute and chronic respiratory failure with hypercapnia Is this a current diagnosis for this admission?: Yes Plan: Multifactorial due to COPD and CHF (3) Acute kidney injury superimposed on CKD Is this a current diagnosis for this admission?: Yes Plan: Monitor renal function closely. Continue to monitor intake and output. Will consult Nephrology when they are available. (4) Acute on chronic diastolic heart failure Is this a current diagnosis for this admission?: Yes (5) Acute on chronic systolic heart failure Is this a current diagnosis for this admission?: Yes Plan: Continue diuresis. Low-sodium diet. Monitor intake and output. Cardiology input appreciated. Monitor renal function closely. (6) Chronic anticoagulation Is this a current diagnosis for this admission?: Yes Plan: Monitor INR (7) Chronic atrial fibrillation Is this a current diagnosis for this admission?: Yes Plan: Coumadin, Multaq and Metoprolol. Cardiology input appreciated. Plan to interrogate AICD. (8) Chronic kidney disease, stage 3 Is this a current diagnosis for this admission?: Yes Plan: Continue to monitor. (9) Coronary artery disease Qualifiers: Coronary Disease-Associated Artery/Lesion type: unspecified vessel or lesion type [place] vs. transplanted heart: [place] heart Associated angina: angina presence unspecified Qualified Code(s): I25.10 - Atherosclerotic heart disease of [place] coronary artery without angina pectoris Is this a current diagnosis for this admission?: Yes Plan: Continue aspirin and statin imDur hydralazine beta-stalin (10) Hyperlipidemia Qualifiers: Hyperlipidemia type: unspecified Qualified Code(s): E78.5 - Hyperlipidemia , unspecified Is this a current diagnosis for this admission?: Yes Plan: Continue statin (11) Hypertension Qualifiers: Hypertension type: essential hypertension Qualified Code(s): I10 - Essential (primary) hypertension Is this a current diagnosis for this admission?: Yes Plan: On hydralazine, Imdur and metoprolol. (12) Insulin dependent diabetes mellitus Is this a current diagnosis for this admission?: Yes Plan: Diabetic diet, Lantus and sliding scale. (13) PVD (peripheral vascular disease) Is this a current diagnosis for this admission?: Yes Plan: Continue aspirin and statin. (14) Blisters of multiple sites Is this a current diagnosis for this admission?: Yes Plan: Secondary to severe edema- keep dry, apply silvadene and wrap with dry gauze daily. - Time Time Spent with patient: 35 or more minutes
[2017-11-14] MEDS ORDERED: SILVER SULFADIAZINE 1% CREAM 25 GM TP SCH (15:00)
[2017-11-14 15:21] LABS: ALANINE AMINOTRANSFERASE 32 U/L (21-72); ALBUMIN 2.7 g/dL (3.5-5.0); ALKALINE PHOSPHATASE 65 U/L (38-126); ANION GAP 6 (5-19); ASPARTATE AMINO TRANSFERASE 20 U/L (17-59); BILIRUBIN,DIRECT 0.5 mg/dL (0.0-0.4); BILIRUBIN,TOTAL 0.5 mg/dL (0.2-1.3); BLOOD UREA NITROGEN 64 mg/dL (7-20); CALCIUM 8.6 mg/dL (8.4-10.2); CARBON DIOXIDE 34 mmol/L (22-30); CHLORIDE 101 mmol/L (98-107); GLUCOSE 141 mg/dL (75-110); PHOSPHORUS 3.9 mg/dL (2.5-4.5); POTASSIUM 3.6 mmol/L (3.6-5.0); SODIUM 141.2 mmol/L (137-145); TOTAL PROTEIN 4.9 g/dL (6.3-8.2)
[2017-11-14] MEDS: FINASTERIDE 5 MG TABLET PO SCH (22:03)
[2017-11-14] MEDS: WARFARIN SODIUM 2 MG TABLET PO SCH (22:03)
[2017-11-14] MEDS: ATORVASTATIN CALCIUM 40 MG TABLET PO SCH (22:03)
[2017-11-14] MEDS: INSULIN GLARGINE,HUM.REC.ANLOG 300 UNIT/3 ML INSULN.PEN SUBCUT SCH (22:04)
[2017-11-14] MEDS: MONTELUKAST SODIUM 10 MG TABLET PO SCH (22:04)
[2017-11-14] MEDS: TAMSULOSIN HCL 0.4 MG CAP.SR.24H PO SCH (22:04)
[2017-11-14] MEDS: SILVER SULFADIAZINE 1% CREAM 25 GM TP SCH (22:05)
[2017-11-15] MEDS: OXYCODONE-ACETAMINOPHEN 5-325 MG TABLET PO PRN ×4 (03:55→22:12)
[2017-11-15] MEDS: LANSOPRAZOLE 30 MG TAB.RAP.DR PO SCH (05:21)
[2017-11-15 07:24] LABS: INTERNATIONAL RATION (INR) 1.95; PROTHROMBIN TIME 23.3 SEC (11.4-15.4)
[2017-11-15 07:45] LABS: ANION GAP 5 (5-19); BLOOD UREA NITROGEN 62 mg/dL (7-20); CALCIUM 8.8 mg/dL (8.4-10.2); CARBON DIOXIDE 36 mmol/L (22-30); CHLORIDE 102 mmol/L (98-107); GLUCOSE 140 mg/dL (75-110); POTASSIUM 3.9 mmol/L (3.6-5.0); SODIUM 143.1 mmol/L (137-145)
[2017-11-15] MEDS: INSULIN REG, HUMAN 100 UNIT/ML 3 ML VIAL (PYX) SUBCUT PRN ×2 (07:45→18:51)
[2017-11-15] MEDS: BUDESONIDE/FORMOTEROL 160-4.5 MCG 60 PUFF/6 GM MDI IH SCH ×2 (10:25→22:10)
[2017-11-15] MEDS: METOLAZONE 5 MG TABLET PO SCH (10:26)
[2017-11-15] MEDS: DRONEDARONE HYDROCHLORIDE 400 MG TABLET PO SCH ×2 (10:26→22:12)
[2017-11-15] MEDS: NYSTATIN 500000 UNIT/5 ML UDCUP PO SCH ×4 (10:26→22:09)
[2017-11-15] MEDS: RANOLAZINE 500 MG TAB.SR.12H PO SCH ×2 (10:26→22:12)
[2017-11-15] MEDS: MAGNESIUM OXIDE 400 MG TABLET PO SCH ×2 (10:27→17:00)
[2017-11-15] MEDS: ALLOPURINOL 300 MG TABLET PO SCH (10:28)
[2017-11-15] MEDS: METOPROLOL SUCCINATE 50 MG TAB.SR.24H PO SCH (10:28)
[2017-11-15] MEDS: PREGABALIN 75 MG CAPSULE PO SCH ×2 (10:28→22:09)
[2017-11-15] MEDS: MULTIVITAMIN TABLET PO SCH (10:28)
[2017-11-15] MEDS: CHOLECALCIFEROL (D3) 400 UNIT TABLET PO SCH (10:28)
[2017-11-15] MEDS: ASPIRIN 81 MG TABLET, ENT COATED PO SCH (10:29)
[2017-11-15] MEDS: SENNOSIDES/DOCUSATE 8.6-50 MG 1 EACH TABLET PO SCH ×2 (10:29→17:00)
[2017-11-15] MEDS: ISOSORBIDE MONONITRATE 30 MG TAB.ER.24H PO SCH (10:29)
[2017-11-15] MEDS: HYDRALAZINE HCL 25 MG TABLET PO SCH (10:30)
[2017-11-15] MEDS: BUMETANIDE INJ/PF 1 MG/4 ML SDV IV SCH ×2 (10:30→23:09)
[2017-11-15] MEDS: DOXAZOSIN MESYLATE 1 MG TABLET PO SCH (10:30)
[2017-11-15] MEDS: NITROGLYCERIN 2.5 MG (0.1 MG/HR) PATCH.TD24 TD SCH (10:30)
--- NOTE | 2017-11-15 12:26 | PDOC PROGRESS REPORT ---
Subjective Reason For Visit: COPD EXCAERBATION Physical Exam Vital Signs: Temp Pulse Resp BP Pulse Ox 97.8 F 59 L 20 114/45 L 98 11/15/17 08:17 11/15/17 08:17 11/15/17 08:17 11/15/17 08:17 11/15/17 08:17 Intake & Output 11/14/17 11/15/17 11/16/17 00:59 00:59 00:59 Intake Total 628 1446 385 Output Total 3300 2500 1000 Balance -2672 -1054 -615 Weight 114.2 kg 115.5 kg Results Laboratory Results: 11/13/17 04:10 11/15/17 06:34 11/14/17 11/15/17 14:21 06:34 Sodium 141.2 143.1 Potassium 3.6 3.9 Chloride 101 102 Carbon Dioxide 34 H 36 H Anion Gap 6 5 BUN 64 H 62 H Creatinine 2.28 H 2.36 H Est GFR ( Amer) 34 L 32 L Est GFR (Non-Af Amer) 28 L 27 L Glucose 141 H 140 H Calcium 8.6 8.8 Phosphorus 3.9 Magnesium 1.8 1.8 Total Bilirubin 0.5 AST 20 ALT 32 Alkaline Phosphatase 65 Total Protein 4.9 L Albumin 2.7 L 11/12/17 11/14/17 23:18 14:21 Troponin I 0.045 NT-Pro-B Natriuret Pep 2810 H Impressions: Chest X-Ray 11/12/17 18:15 IMPRESSION: HEART ENLARGED WITHOUT FAILURE. NO OTHER SIGNIFICANT RADIOGRAPHIC FINDING IN THE CHEST. Assessment & Plan - Diagnosis (1) History of implantable cardioverter-defibrillator (ICD) placement Is this a current diagnosis for this admission?: Yes Plan: Patient will need elective replacement of defibrillator battery at [facility] (2) Acute on chronic diastolic heart failure Is this a current diagnosis for this admission?: Yes Plan: Continue diuresis as per cardiology (3) Acute and chronic respiratory failure Qualifiers: Respiratory failure complication: hypoxia and hypercapnia Qualified Code(s) : J96.21 - Acute and chronic respiratory failure with hypoxia; J96.22 - Acute and chronic respiratory failure with hypercapnia; J96.22 - Acute and chronic respiratory failure with hypercapnia; J96.22 - Acute and chronic respiratory failure with hypercapnia Is this a current diagnosis for this admission?: Yes Plan: Is improving Patient is comfortable on nasal cannula (4) PVD (peripheral vascular disease) Is this a current diagnosis for this admission?: Yes Plan: We will obtain arterial Doppler right lower extremity To evaluate arterial perfusion (5) CKD (chronic kidney disease), stage IV Is this a current diagnosis for this admission?: Yes - Time Time Spent with patient: Patient in general is extremely stable Continue present management Follow-up BMP in a.m. ; arterial Doppler pending Time Spent with patient: 25-34 minutes
--- NOTE | 2017-11-15 13:34 | PDOC CONSULTATION ---
History of Present Illness Admission Date/PCP: 11/12/17 21:53 RUY CARTWRIGHT MD History of Present Illness: TRUONG PINK is a 77 year old male with a history of atrial fibrillation on Multaq and Coumadin, and AICD with pacemaker, peripheral vascular disease, ischemic heart disease post coronary artery bypass graft, congestive heart failure with a EF of 30-35% and moderate diastolic failure with pulmonary hypertension, obstructive sleep apnea, diabetes and stage III renal failure, posttraumatic splenectomy and [place] with ascites presenting with increased swelling and shortness of breath. Patient states he was swollen on day of discharge and was not feeling well. He was discharged and came back less than 15 hours later. At the time he was stating that he felt his swelling was worse. He states that it was to the point that the fluid was oozing through his dressing and he has a blisters on his legs. According to him the swelling was in his legs, back, arms and abdomen. Patient was not able to walk without becoming extremely short of breath. He came back to the ED voided 1 L. He was then given 60mg of IV Lasix and it did nothing for him in the ED. Patient was also placed on BiPAP. ED chest x-ray is clear. Patient was noted to have an elevated BNP and his creatinine has remained around the 2.2 to 2.3s even with diuretic use and previously having just finished up some antibiotics. He is currently receiving 1mg of bumex q12 with metolazone. He has urine outputs of 4.5L and 2.3L. He says that he feels much better. Currently is not SOB and says that his body feels a lot less swollen. Also denies chest pain, fevers or chills. Past Medical History Cardiac Medical History: Reports: Atrial Fibrillation, Coronary Artery Disease, Hyperlipidemia, Hypertension-primary, Myocardial Infarction - x6, Peripheral Vascular Disease, Pulmonary Embolism Pulmonary Medical History: Reports: Asthma, Bronchitis, Chronic Obstructive Pulmonary Disease (COPD), Sleep Apnea - without c-pap Denies: Pneumonia, Respiratory Failure, Tuberculosis Neurological Medical History: Denies: Seizures Endocrine Medical History: Reports: Diabetes Mellitus Type 2 Denies: Hyperthyroidism, Hypothyroidism Renal/ Medical History: Reports: Benign Prostatic Hyperplasia, Chronic Kidney Disease Stage III Denies: End Stage Renal Disease Malignancy Medical History: Denies: Leukemia, Lung Cancer GI Medical History: Reports: Gastroesophageal Reflux Disease Denies: Hepatitis, Hiatal Hernia Musculoskeltal Medical History: Reports: Arthritis Denies: Fibromyalgia, Rheumatoid Arthritis, Systemic Lupus Erythematosus Psychiatric Medical History: Denies: Dementia, Depression Infectious Medical History: Denies: HIV Past Surgical History Past Surgical History: Reports: Cardiac Catheterization, Coronary Artery Bypass Graft - quadruple, Coronary Stent, Internal Defibrillator, Orthopedic Surgery - Left BKA, Pacemaker Denies: Appendectomy, Cholecystectomy, Gastric Bypass Surgery, Herniorrhaphy , Tonsillectomy Social History Lives with: Family Smoking Status: Former Smoker Frequency of Alcohol Use: None Hx Recreational Drug Use: No Drugs: None Hx Prescription Drug Abuse: No - Advance Directive Resuscitation Status: Full Code Family History Parental Family History Reviewed: No Children Family History Reviewed: NA Sibling(s) Family History Reviewed.: NA Medication/Allergy Home Medications: Albuterol Sulfate [Ventolin HFA MDI 18 GM] 1 puff IH Q6HP PRN 11/13/17 Allopurinol [Zyloprim 300 mg Tablet] 150 mg PO DAILY 11/13/17 Aspirin [Ecotrin 81 mg EC Tablet] 81 mg PO DAILY 11/13/17 Atorvastatin Calcium [Lipitor 40 mg Tablet] 40 mg PO QHS 11/13/17 Budesonide/Formoterol Fumarate [Symbicort 160-4.5 Mcg Inhaler] 2 puff IH Q12 07/21 Bumetanide [Bumex 2 mg Tablet] 2 mg PO DAILY 11/13/17 Cholecalciferol (Vitamin D3) [Vitamin D3 400 Unit Tablet] 400 unit PO DAILY 07/21 Dronedarone Hydrochloride [Multaq 400 mg Tablet] 400 mg PO Q12 11/13/17 Finasteride [Proscar 5 mg Tablet] 5 mg PO QHS 11/13/17 Hydralazine HCl [Apresoline 25 mg Tablet] 25 mg PO Q12 11/13/17 Hydrocodone/Acetaminophen [Hydrocodone-Acetamin 10-325 mg] 1 tab PO Q6HP PRN 07/21 Insulin Glargine,Hum.rec.anlog [Lantus Solostar] 20 unit SQ QHS 11/13/17 Isosorbide Mononitrate [Imdur 30 mg Tablet.er] 90 mg PO DAILY 11/13/17 Magnesium Oxide [Mag-Ox 400 mg Tablet] 400 mg PO BID 11/13/17 Metoprolol Succinate [Toprol Xl 50 mg Tab.sr] 50 mg PO DAILY 11/13/17 Montelukast Sodium [Singulair 10 mg Tablet] 10 mg PO QHS 11/13/17 Multivitamin [Tab-A-Maris (Multiple Vitamin) Tablet] 1 tab PO DAILY 11/13/17 Omeprazole 20 mg PO DAILY 11/13/17 Polyethylene Glycol 3350 [Miralax Powder 17 gm/Packet] 17 gm PO QPMP PRN Pregabalin [Lyrica] 150 mg PO Q12 11/13/17 Ranolazine [Ranexa 500 mg Tab.sr] 1,000 mg PO Q12 11/13/17 Sennosides/Docusate 8.6-50 mg [Senna Plus Tablet] 1 tab PO BID 11/13/17 Tamsulosin HCl [Flomax 0.4 mg Cap.sr] 0.8 mg PO QHS 11/13/17 Terazosin HCl 1 mg PO DAILY 11/13/17 Tiotropium [place] [Spiriva Handihaler 5 Cap/Kit (18 Mcg/Cap)] 1 puff IH DAILY 11/13/17 Warfarin Sodium [Coumadin 2 mg Tablet] 2 mg PO QHS 11/13/17 Zolpidem Tartrate [Ambien 5 mg Tablet] 5 mg PO HSP PRN 11/13/17 Allergies/Adverse Reactions: Penicillins Allergy (Unknown, Verified 05/17/17 10:40) vancomycin [Vancomycin] Adverse Reaction (Verified 08/24/16 13:13) Review of Systems Constitutional: ABSENT: chills, fever(s), weakness Nose, Mouth, and Throat: ABSENT: headache(s) Cardiovascular: PRESENT: dyspnea on exertion, edema. ABSENT: chest pain, orthropnea, palpitations Respiratory: PRESENT: cough, sputum. ABSENT: dyspnea Gastrointestinal: ABSENT: abdominal pain, constipation, diarrhea, nausea, vomiting Genitourinary: ABSENT: difficulty urinating, dysuria Musculoskeletal: ABSENT: muscle weakness Neurological: ABSENT: confusion, dizziness, weakness Physical Exam Vital Signs: Temp Pulse Resp BP Pulse Ox 97.8 F 59 L 20 114/45 L 98 11/15/17 08:17 11/15/17 08:17 11/15/17 08:17 11/15/17 08:17 11/15/17 08:17 Intake & Output 11/14/17 11/15/17 11/16/17 06:59 06:59 06:59 Intake Total 658 1801 Output Total 4500 2300 Balance -3842 -499 Weight 114.2 kg 115.5 kg General appearance: PRESENT: no acute distress, morbidly obese, obese, well- developed, well-nourished Mouth exam: PRESENT: moist, neck supple Neck exam: PRESENT: full ROM. ABSENT: JVD Respiratory exam: PRESENT: wheezes. ABSENT: accessory muscle use, clear to auscultation dipti, crackles, rales, rhonchi Cardiovascular exam: PRESENT: irregular rhythm, +S1, +S2 GI/Abdominal exam: PRESENT: soft. ABSENT: ascites, tenderness Extremities exam: PRESENT: +1 edema. ABSENT: tenderness Musculoskeletal exam: ABSENT: normal inspection, tenderness Neurological exam: PRESENT: alert, awake, oriented to person, oriented to place , oriented to time, oriented to situation Psychiatric exam: PRESENT: appropriate affect, normal mood Skin exam: PRESENT: erythema, rash, skin tears, vesicles Results Laboratory Results: 11/13/17 04:10 11/15/17 06:34 11/14/17 11/15/17 14:21 06:34 Sodium 141.2 143.1 Potassium 3.6 3.9 Chloride 101 102 Carbon Dioxide 34 H 36 H Anion Gap 6 5 BUN 64 H 62 H Creatinine 2.28 H 2.36 H Est GFR ( Amer) 34 L 32 L Est GFR (Non-Af Amer) 28 L 27 L Glucose 141 H 140 H Calcium 8.6 8.8 Phosphorus 3.9 Magnesium 1.8 1.8 Total Bilirubin 0.5 AST 20 ALT 32 Alkaline Phosphatase 65 Total Protein 4.9 L Albumin 2.7 L 11/12/17 11/14/17 23:18 14:21 Troponin I 0.045 NT-Pro-B Natriuret Pep 2810 H Impressions: Chest X-Ray 11/12/17 18:15 IMPRESSION: HEART ENLARGED WITHOUT FAILURE. NO OTHER SIGNIFICANT RADIOGRAPHIC FINDING IN THE CHEST. Assessment & Plan - Diagnosis (1) Acute on chronic systolic heart failure Is this a current diagnosis for this admission?: Yes Plan: looks to be making good progress with current diuretic regiment. If he has another large amount of urine out put he may need to have diuretics decreased to 1mg of bumex daily to avoid over diuresis. Discussed with Dr. Mcdonald about starting the patient on Entresto, currently no contraindications. Recommend startling low and slowly titrating up watching creatinine as this happens. (2) Anasarca Is this a current diagnosis for this admission?: Yes Plan: improving on current diuretics (3) Acute kidney injury superimposed on CKD Is this a current diagnosis for this admission?: Yes Plan: Currently creatinine is stable at 2.2 to 2.3, looks to have a baseline of 1.8. Most likely elevated from diuretic use in combination with recent antibiotic use. As fluid comes off his creatinine will slowly elevate up due to not being diluted down anymore. Do not think it is post obstructive because he is currently producing a good amount of urine out flow. Could be also caused from when the blood pressures reach low end of normal range. Will monitor creatinine while on the diuretics. Recommend reducing diuretics if he keeps having large urine outputs to avoid over diuresis. Will not give any IV fluid due to currently in the mild of an acute exacerbation of CHF. Recommend oral hydration. (4) CKD (chronic kidney disease), stage IV Is this a current diagnosis for this admission?: Yes Plan: looks to have a base line of 1.8, see MYLES above for further detail (5) Hypertension Qualifiers: Hypertension type: essential hypertension Qualified Code(s): I10 - Essential (primary) hypertension Is this a current diagnosis for this admission?: Yes Plan: recommend keeping bp in the 120s to 130s. (6) Blisters of multiple sites Is this a current diagnosis for this admission?: Yes Plan: currently being handled by hospitalist. (7) Anemia Qualifiers: Other causes of anemia: chronic disease, other Is this a current diagnosis for this admission?: Yes Plan: will draw some labs to rule out other causes beside CKD. (8) Diabetes type 2, uncontrolled Qualifiers: Diabetes mellitus complication status: with hyperglycemia Diabetes mellitus jail insulin use: with jail use Qualified Code(s): E11.65 - Type 2 diabetes mellitus with hyperglycemia; Z79.4 - terminal system operator (current) use of insulin; Z79.4 - [facility] (current) use of insulin; Z79.4 - terminal system operator ( current) use of insulin; Z79.4 - terminal system operator (current) use of insulin - Notes Notes: Patient case and care plan was discussed with Dr. Mcdonald.
--- NOTE | 2017-11-15 19:15 | PDOC PROGRESS REPORT ---
Subjective Progress Note for:: 11/15/17 Subjective:: Patient seems to be doing better with gradual improvement. Pt is denying any chest arm or neck discomfort. Patient denying any PND, orthopnea. Patient denied any sustained palpitations, dizziness, syncope, near syncope. Patient denying any fever chills. Patient denying any other significant discomfort. Patient is atrial paced rhythm. No sustained tachycardia or bradycardia arrhythmias noted. Review of systems: Rest review of systems negative. Medications: Medications have been reviewed. Reason For Visit: COPD EXCAERBATION Physical Exam Vital Signs: Temp Pulse Resp BP Pulse Ox 98.0 F 62 20 98/50 L 93 11/15/17 18:23 11/15/17 18:23 11/15/17 18:23 11/15/17 18:23 11/15/17 18:23 Intake & Output 11/14/17 11/15/17 11/16/17 06:59 06:59 06:59 Intake Total 658 1801 257 Output Total 4500 2300 Balance -3842 -499 257 Weight 114.2 kg 115.5 kg Exam: GENERAL: well-nourished and mild respiratory distress. Alert and oriented x3 HEAD: Atraumatic, normocephalic. EYES: Pupils equal round and reactive to light, extraocular movements intact, sclera anicteric, conjunctiva are normal. ENT: TMs normal, nares patent, oropharynx clear without exudates. Moist mucous membranes. No oral ulcerations or bleeding gums noted NECK: supple without lymphadenopathy. Trachea is central. No cervical or axillary lymphadenopathy noted. Carotids are 2+, JVD 8-10 cm LUNGS: Respiration seems nonlabored, no significant accessory muscle action noted. Bilateral coarse crackles noted. Mild wheezes rales or rhonchi noted. No significant dullness noted on percussion. CHEST: Palpation of the chest wall shows no significant chest wall tenderness. No other significant abnormalities noted. 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 ABDOMEN: Soft, no significant tenderness appreciated, normoactive bowel sounds. No guarding, no rebound. No rigidity noted . No masses appreciated. EXTREMITIES: left below the knee amputation. The right leg has wound that is is covered up. At least 2-3+ edema noted of the right lower extremity with some superficial ulcerations. NEUROLOGICAL: Focused neurological exam showed no significant neurologic deficit. Normal speech, no focal weakness appreciated. PSYCH: Normal mood, normal affect. Judgment and insight within normal limits. SKIN: No significant ecchymosis, rash, signs of pruritus noted. Patient does have some ulcerations, which is superficial and covered with bandages. MUSCULOSKELETAL EXAM: No significant joint swelling noted. Results Laboratory Results: 11/13/17 04:10 11/15/17 06:34 11/15/17 06:34 Sodium 143.1 Potassium 3.9 Chloride 102 Carbon Dioxide 36 H Anion Gap 5 BUN 62 H Creatinine 2.36 H Est GFR ( Amer) 32 L Est GFR (Non-Af Amer) 27 L Glucose 140 H Calcium 8.8 Magnesium 1.8 11/12/17 11/14/17 23:18 14:21 Troponin I 0.045 NT-Pro-B Natriuret Pep 2810 H EKG Comments: Telemetry strips shows atrial paced rhythms Impressions: Chest X-Ray 11/12/17 18:15 IMPRESSION: HEART ENLARGED WITHOUT FAILURE. NO OTHER SIGNIFICANT RADIOGRAPHIC FINDING IN THE CHEST. Assessment & Plan - Diagnosis (1) CHF exacerbation Is this a current diagnosis for this admission?: Yes (2) COPD (chronic obstructive pulmonary disease) Qualifiers: COPD type: emphysema Emphysema type: unspecified Qualified Code(s): J43.9 - Emphysema, unspecified Is this a current diagnosis for this admission?: Yes (3) Coronary artery disease Qualifiers: Coronary Disease-Associated Artery/Lesion type: unspecified vessel or lesion type [place] vs. transplanted heart: [place] heart Associated angina: angina presence unspecified Qualified Code(s): I25.10 - Atherosclerotic heart disease of [place] coronary artery without angina pectoris Is this a current diagnosis for this admission?: Yes (4) DM type 2 (diabetes mellitus, type 2) Qualifiers: Diabetes mellitus complication status: with unspecified complications Diabetes mellitus group home insulin use: unspecified moth exterminator insulin use status Qualified Code(s): E11.8 - Type 2 diabetes mellitus with unspecified complications Is this a current diagnosis for this admission?: Yes (5) Hyperlipidemia Qualifiers: Hyperlipidemia type: unspecified Qualified Code(s): E78.5 - Hyperlipidemia , unspecified Is this a current diagnosis for this admission?: Yes (6) Hypertension Qualifiers: Hypertension type: essential hypertension Qualified Code(s): I10 - Essential (primary) hypertension Is this a current diagnosis for this admission?: Yes (7) PVD (peripheral vascular disease) Is this a current diagnosis for this admission?: Yes (8) History of implantable cardioverter-defibrillator (ICD) placement Is this a current diagnosis for this admission?: Yes - Notes Notes: Patient noted to be significantly improved on current regimen. Continue current diuretic therapy. Patient on chronic anticoagulation with Coumadin with adequate INR. Patient's medical regimen reviewed and is noted to be very satisfactory. Patient does have significant renal dysfunction, however if sheep sorter allows may consider adding entresto at low-dose to patient's regimen. CHF exacerbation: Continue with IV diuretic therapy. Continue p.o. Zaroxolyn. Will try optimize therapy for underlying cardiomyopathy. Consider entresto therapy if there are no contraindication. May need to monitor renal functions very closely. COPD: Agree with current management plans. Coronary artery disease: Currently symptomatically stable without any angina symptoms. Diabetes: Recommend good management of diabetes but avoid any hypo-or hyperglycemia. Hypertension: Blood pressure goal should be 135/85 or less but could well be more liberal in this patient because of Multiple other comorbidities. PVD with wound infection: Recommend vascular surgery consultation, wound care consultation. History of ICD placement: Patient tells me that he is due for replacement of the battery of the defibrillator. Recommend interrogation and possibly asking local surgeon to replace it if they are willing to do so. Otherwise patient would need to go to [place] for battery replacement. May consider venous duplex ultrasound study of the right lower extremity. - Time Time with patient: Greater than 35 minutes - CODE STATUS was discussed, patient remains full code. Surrogate decision-maker unchanged. Multiple medical problems were addressed. More than 50% of the time spent coordinating care, discussing management plans with involved caregivers. Management plans discussed with involved personnels. Medical decision making was of moderate to high complexity, patient's has multiple comorbidities. Medications reviewed and adjusted accordingly: Yes
[2017-11-15] MEDS: MONTELUKAST SODIUM 10 MG TABLET PO SCH (22:09)
[2017-11-15] MEDS: TAMSULOSIN HCL 0.4 MG CAP.SR.24H PO SCH (22:13)
[2017-11-15] MEDS: ATORVASTATIN CALCIUM 40 MG TABLET PO SCH (22:13)
[2017-11-15] MEDS: FINASTERIDE 5 MG TABLET PO SCH (22:13)
[2017-11-15] MEDS: WARFARIN SODIUM 2 MG TABLET PO SCH (22:14)
[2017-11-15] MEDS: INSULIN GLARGINE,HUM.REC.ANLOG 300 UNIT/3 ML INSULN.PEN SUBCUT SCH (23:07)
[2017-11-16] MEDS ORDERED: SILVER SULFADIAZINE 1% CREAM 25 GM ONE (00:48)
[2017-11-16] MEDS: HYDRALAZINE HCL 25 MG TABLET PO SCH ×2 (01:02→10:28)
[2017-11-16] MEDS: SILVER SULFADIAZINE 1% CREAM 25 GM TP SCH ×2 (03:09→22:01)
[2017-11-16] MEDS: LANSOPRAZOLE 30 MG TAB.RAP.DR PO SCH (05:37)
[2017-11-16] MEDS: OXYCODONE-ACETAMINOPHEN 5-325 MG TABLET PO PRN ×3 (05:37→16:40)
[2017-11-16 06:04] LABS: ABSOLUTE BASOPHILS # (AUTO) 0.1 10^3/uL (0.0-0.2); ABSOLUTE EOSINOPHILS # (AUTO) 0.1 10^3/uL (0.0-0.6); ABSOLUTE LYMPHOCYTES (AUTO) 0.7 10^3/uL (0.5-4.7); ABSOLUTE MONOCYTES (AUTO) 0.9 10^3/uL (0.1-1.4); ABSOLUTE NEUT (AUTO) 5.2 10^3/uL (1.7-8.2); BASOPHILS % (AUTO) 0.7 % (0-2); EOSINOPHILS % (AUTO) 1.3 % (0-6); HEMATOCRIT 32.1 % (37.9-51.0); HEMOGLOBIN 10.6 g/dL (13.5-17.0); LYMPHOCYTES % (AUTO) 10.2 % (13-45); MEAN CORPUSCULAR HEMOGLOBIN 30.7 pg (27.0-33.4); MEAN CORPUSCULAR HGB CONC 33.2 g/dL (32.0-36.0); MEAN CORPUSCULAR VOLUME 93 fl (80-97); MONOCYTES % (AUTO) 13.2 % (3-13); RED BLOOD COUNT 3.46 10^6/uL (4.35-5.55); RED CELL DISTRIBUTION WIDTH 18.2 % (11.5-14.0); SEGMENTED NEUTROPHILS % (AUTO) 74.6 % (42-78); TOTAL CELLS COUNTED % (AUTO) 100 %; WHITE BLOOD COUNT 6.9 10^3/uL (4.0-10.5)
[2017-11-16 06:16] LABS: ANION GAP 8 (5-19); BLOOD UREA NITROGEN 57 mg/dL (7-20); CALCIUM 8.5 mg/dL (8.4-10.2); CARBON DIOXIDE 33 mmol/L (22-30); CHLORIDE 102 mmol/L (98-107); GLUCOSE 119 mg/dL (75-110); POTASSIUM 3.4 mmol/L (3.6-5.0); SODIUM 142.7 mmol/L (137-145)
[2017-11-16] MEDS: POTASSI CL 20 MEQ/50 ML RIDER 20 MEQ/50 ML RTUPB IV SCH ×2 (06:35→10:31)
[2017-11-16 06:43] LABS: PLATELET COUNT 88 10^3/uL (150-450)
[2017-11-16] MEDS: ISOSORBIDE MONONITRATE 30 MG TAB.ER.24H PO SCH (10:23)
[2017-11-16] MEDS: MAGNESIUM OXIDE 400 MG TABLET PO SCH ×2 (10:23→18:05)
[2017-11-16] MEDS: ALLOPURINOL 300 MG TABLET PO SCH (10:24)
[2017-11-16] MEDS: RANOLAZINE 500 MG TAB.SR.12H PO SCH ×2 (10:25→22:04)
[2017-11-16] MEDS: PREGABALIN 75 MG CAPSULE PO SCH ×2 (10:25→21:48)
[2017-11-16] MEDS: ASPIRIN 81 MG TABLET, ENT COATED PO SCH (10:25)
[2017-11-16] MEDS: MULTIVITAMIN TABLET PO SCH (10:26)
[2017-11-16] MEDS: SENNOSIDES/DOCUSATE 8.6-50 MG 1 EACH TABLET PO SCH ×2 (10:26→18:05)
[2017-11-16] MEDS: METOPROLOL SUCCINATE 50 MG TAB.SR.24H PO SCH (10:26)
[2017-11-16] MEDS: DRONEDARONE HYDROCHLORIDE 400 MG TABLET PO SCH ×2 (10:27→21:48)
[2017-11-16] MEDS: METOLAZONE 5 MG TABLET PO SCH (10:28)
[2017-11-16] MEDS: CHOLECALCIFEROL (D3) 400 UNIT TABLET PO SCH (10:28)
[2017-11-16] MEDS: DOXAZOSIN MESYLATE 1 MG TABLET PO SCH (10:28)
[2017-11-16] MEDS: NITROGLYCERIN 2.5 MG (0.1 MG/HR) PATCH.TD24 TD SCH (10:29)
[2017-11-16] MEDS: NYSTATIN 500000 UNIT/5 ML UDCUP PO SCH ×4 (10:31→21:49)
[2017-11-16] MEDS: BUDESONIDE/FORMOTEROL 160-4.5 MCG 60 PUFF/6 GM MDI IH SCH ×2 (10:31→21:49)
[2017-11-16] MEDS: BUMETANIDE INJ/PF 1 MG/4 ML SDV IV SCH ×2 (10:31→21:47)
--- NOTE | 2017-11-16 12:24 | PDOC PROGRESS REPORT ---
Subjective Progress Note for:: 11/16/17 Subjective:: Patient is complaining of pain because of potassium infusion He is otherwise doing well feels " congested" No fever no chills no chest pain shortness of breath Wound infection in the right lower extremity is looking better Reason For Visit: COPD EXCAERBATION Physical Exam Vital Signs: Temp Pulse Resp BP Pulse Ox 97.7 F 56 L 14 112/50 L 100 11/16/17 07:37 11/16/17 07:37 11/16/17 07:37 11/16/17 07:37 11/16/17 07:37 Intake & Output 11/15/17 11/16/17 11/17/17 00:59 00:59 00:59 Intake Total 1446 1579 32 Output Total 2500 1000 700 Balance -1054 579 -668 Weight 114.2 kg 115.5 kg 114.4 kg General appearance: PRESENT: mild distress, obese Head exam: PRESENT: atraumatic, normocephalic Eye exam: PRESENT: conjunctiva pink, EOMI, PERRLA. ABSENT: scleral icterus Neck exam: ABSENT: carotid bruit, JVD, lymphadenopathy, thyromegaly Respiratory exam: PRESENT: crackles, rales, rhonchi Cardiovascular exam: PRESENT: RRR. ABSENT: diastolic murmur, rubs, systolic murmur Pulses: PRESENT: normal dorsalis pedis pul GI/Abdominal exam: PRESENT: normal bowel sounds, soft. ABSENT: distended, guarding, mass, organolmegaly, rebound, tenderness Extremities exam: PRESENT: other - Left BKA Right lower extremity tense blisters and shallow ulcerations Stasis dermatitis violaceous colored skin Neurological exam: PRESENT: alert Results Laboratory Results: 11/16/17 05:19 11/16/17 05:19 11/16/17 11/16/17 05:19 05:19 WBC 6.9 RBC 3.46 L Hgb 10.6 L Hct 32.1 L MCV 93 MCH 30.7 MCHC 33.2 RDW 18.2 H Plt Count 88 L Seg Neutrophils % 74.6 Lymphocytes % 10.2 L Monocytes % 13.2 H Eosinophils % 1.3 Basophils % 0.7 Absolute Neutrophils 5.2 Absolute Lymphocytes 0.7 Absolute Monocytes 0.9 Absolute Eosinophils 0.1 Absolute Basophils 0.1 Sodium 142.7 Potassium 3.4 L Chloride 102 Carbon Dioxide 33 H Anion Gap 8 BUN 57 H Creatinine 2.11 H Est GFR ( Amer) 37 L Est GFR (Non-Af Amer) 30 L Glucose 119 H Calcium 8.5 11/12/17 11/14/17 23:18 14:21 Troponin I 0.045 NT-Pro-B Natriuret Pep 2810 H Impressions: Chest X-Ray 11/12/17 18:15 IMPRESSION: HEART ENLARGED WITHOUT FAILURE. NO OTHER SIGNIFICANT RADIOGRAPHIC FINDING IN THE CHEST. Assessment & Plan - Diagnosis (1) History of implantable cardioverter-defibrillator (ICD) placement Is this a current diagnosis for this admission?: Yes (2) Acute on chronic diastolic heart failure Is this a current diagnosis for this admission?: Yes Plan: Continue diuresis as per cardiology Patient appears more fluid overloaded Reevaluate management (3) Acute and chronic respiratory failure Qualifiers: Respiratory failure complication: hypoxia and hypercapnia Qualified Code(s) : J96.21 - Acute and chronic respiratory failure with hypoxia; J96.22 - Acute and chronic respiratory failure with hypercapnia; J96.22 - Acute and chronic respiratory failure with hypercapnia; J96.22 - Acute and chronic respiratory failure with hypercapnia Is this a current diagnosis for this admission?: Yes (4) PVD (peripheral vascular disease) Is this a current diagnosis for this admission?: Yes Plan: Wound right lower extremity ; stasis dermatitis; continue to apply Silvadene cream vascular studies pending (5) CKD (chronic kidney disease), stage IV Is this a current diagnosis for this admission?: Yes - Time Time Spent with patient: 25-34 minutes
[2017-11-16] MEDS ORDERED: POTASSIUM CHLORIDE 10 MEQ TABLET.SA PO ONE (13:30)
--- NOTE | 2017-11-16 16:41 | PDOC PROGRESS REPORT ---
Subjective Progress Note for:: 11/16/17 Reason For Visit: Patient seen today. He is feeling a whole lot better on his current medications. He has been having good diuresis and his breathing and his edema is a whole lot better. He still has some blisters - both closed and open variety on his right leg. No apparent signs of any active infection. He denies any dyspnea on minimal exertion , chest pains, fever or chills. Labs and medications were reviewed with him. I reviewed his last ECHO from Oct 2017 which showed Bi ventricular failure / Cardiomyopathy. His LVEF was approx 35% with diastolic failure as wee and global hypokinesis. His RVSP was approx 40 - 50 mm hg. Physical Exam Vital Signs: Temp Pulse Resp BP Pulse Ox 97.8 F 63 20 130/49 H 97 11/16/17 11:15 11/16/17 11:15 11/16/17 11:15 11/16/17 11:15 11/16/17 11:15 Intake & Output 11/15/17 11/16/17 11/17/17 06:59 06:59 06:59 Intake Total 1801 1226 Output Total 2300 700 Balance -499 526 Weight 115.5 kg 114.4 kg General appearance: PRESENT: no acute distress Respiratory exam: PRESENT: clear to auscultation dipti. ABSENT: crackles, rhonchi Cardiovascular exam: PRESENT: irregular rhythm, +S1, +S2 GI/Abdominal exam: PRESENT: normal bowel sounds, soft. ABSENT: ascites, organomegaly, tenderness Extremities exam: ABSENT: pedal edema Neurological exam: PRESENT: alert, awake, oriented to person, oriented to place Skin exam: PRESENT: erythema - open and closed blisters on right leg., skin tears, vesicles. ABSENT: cyanosis Results Laboratory Results: 11/16/17 05:19 11/16/17 05:19 11/16/17 11/16/17 05:19 05:19 WBC 6.9 RBC 3.46 L Hgb 10.6 L Hct 32.1 L MCV 93 MCH 30.7 MCHC 33.2 RDW 18.2 H Plt Count 88 L Seg Neutrophils % 74.6 Lymphocytes % 10.2 L Monocytes % 13.2 H Eosinophils % 1.3 Basophils % 0.7 Absolute Neutrophils 5.2 Absolute Lymphocytes 0.7 Absolute Monocytes 0.9 Absolute Eosinophils 0.1 Absolute Basophils 0.1 Sodium 142.7 Potassium 3.4 L Chloride 102 Carbon Dioxide 33 H Anion Gap 8 BUN 57 H Creatinine 2.11 H Est GFR ( Amer) 37 L Est GFR (Non-Af Amer) 30 L Glucose 119 H Calcium 8.5 11/12/17 11/14/17 23:18 14:21 Troponin I 0.045 NT-Pro-B Natriuret Pep 2810 H Impressions: Chest X-Ray 11/12/17 18:15 IMPRESSION: HEART ENLARGED WITHOUT FAILURE. NO OTHER SIGNIFICANT RADIOGRAPHIC FINDING IN THE CHEST. Assessment & Plan - Diagnosis (1) Acute kidney injury superimposed on CKD Is this a current diagnosis for this admission?: Yes Plan: He has pre renal CHF exacerberation causing his MYLES on top of his underlying CKD 3 likely from Diabetic nephropathy. UA needs to be done. No evidence of Post renal etiology based on recent renal US and symptomatology. He has stable renal nos on the current medications and I would modify these to accomodate AR / Neprilysin inhibitor- Entresto. Will dose with 24/26 mg bid. No acute indications for DIRECTOR OF PRODUCT DEVELOPMENT. 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 (3) Acute on chronic systolic heart failure Is this a current diagnosis for this admission?: Yes Plan: Patient has bi ventricular failre/CMP. Currently admitted with acute on chronic insult and improving on current management. I agree with Dr Garcia Cardiology in introducing a AR/ Neprilysin inhibitor on low dose after adjusting other medications to make room for it. So will stop doxazosin and hydralazine and start Entresto 24/26. (4) Acute respiratory failure with hypoxia Plan: Improving with resolution of his Acute CHF. (5) Diabetes type 2, uncontrolled Qualifiers: Diabetes mellitus complication status: with hyperglycemia Diabetes mellitus mcc insulin use: with mcc use Qualified Code(s): E11.65 - Type 2 diabetes mellitus with hyperglycemia; Z79.4 - [facility] (current) use of insulin; Z79.4 - joint terminal attack controller (current) use of insulin; Z79.4 - [facility] ( current) use of insulin; Z79.4 - [facility] (current) use of insulin Plan: Adv on need for tight diabetic control. (6) Obesity (BMI 30.0-34.9) Plan: Adv on weight loss with respect to blood sugars. (7) Hypokalemia Plan: Will start on replacement. (8) Blisters of multiple sites Is this a current diagnosis for this admission?: Yes Plan: As per hospitalist.
--- NOTE | 2017-11-16 19:39 | PDOC PROGRESS REPORT ---
Subjective Progress Note for:: 11/16/17 Subjective:: Patient seems to be doing better with gradual improvement. Pt is denying any chest arm or neck discomfort. Patient denying any PND, orthopnea. Patient denied any sustained palpitations, dizziness, syncope, near syncope. Patient denying any fever chills. Patient denying any other significant discomfort. Patient is atrial paced rhythm. No sustained tachycardia or bradycardia arrhythmias noted. Review of systems: Rest review of systems negative. Medications: Medications have been reviewed. Reason For Visit: COPD EXCAERBATION Physical Exam Vital Signs: Temp Pulse Resp BP Pulse Ox 97.8 F 58 L 14 116/51 L 100 11/16/17 16:10 11/16/17 16:10 11/16/17 16:10 11/16/17 16:10 11/16/17 16:10 Intake & Output 11/15/17 11/16/17 11/17/17 06:59 06:59 06:59 Intake Total 1801 1226 290 Output Total 2300 700 Balance -499 526 290 Weight 115.5 kg 114.4 kg Exam: GENERAL: well-nourished and mild respiratory distress. Alert and oriented x3 HEAD: Atraumatic, normocephalic. EYES: Pupils equal round and reactive to light, extraocular movements intact, sclera anicteric, conjunctiva are normal. ENT: TMs normal, nares patent, oropharynx clear without exudates. Moist mucous membranes. No oral ulcerations or bleeding gums noted NECK: supple without lymphadenopathy. Trachea is central. No cervical or axillary lymphadenopathy noted. Carotids are 2+, JVD 8-10 cm LUNGS: Respiration seems nonlabored, no significant accessory muscle action noted. Bilateral coarse crackles noted. Mild wheezes rales or rhonchi noted. No significant dullness noted on percussion. CHEST: Palpation of the chest wall shows no significant chest wall tenderness. No other significant abnormalities noted. 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 ABDOMEN: Soft, no significant tenderness appreciated, normoactive bowel sounds. No guarding, no rebound. No rigidity noted . No masses appreciated. EXTREMITIES: left below the knee amputation. The right leg has wound that is is covered up. At least 2-3+ edema noted of the right lower extremity with some superficial ulcerations. NEUROLOGICAL: Focused neurological exam showed no significant neurologic deficit. Normal speech, no focal weakness appreciated. PSYCH: Normal mood, normal affect. Judgment and insight within normal limits. SKIN: No significant ecchymosis, rash, signs of pruritus noted. Patient does have some ulcerations, which is superficial and covered with bandages. MUSCULOSKELETAL EXAM: No significant joint swelling noted. Results Laboratory Results: 11/16/17 05:19 11/16/17 05:19 11/16/17 11/16/17 05:19 05:19 WBC 6.9 RBC 3.46 L Hgb 10.6 L Hct 32.1 L MCV 93 MCH 30.7 MCHC 33.2 RDW 18.2 H Plt Count 88 L Seg Neutrophils % 74.6 Lymphocytes % 10.2 L Monocytes % 13.2 H Eosinophils % 1.3 Basophils % 0.7 Absolute Neutrophils 5.2 Absolute Lymphocytes 0.7 Absolute Monocytes 0.9 Absolute Eosinophils 0.1 Absolute Basophils 0.1 Sodium 142.7 Potassium 3.4 L Chloride 102 Carbon Dioxide 33 H Anion Gap 8 BUN 57 H Creatinine 2.11 H Est GFR ( Amer) 37 L Est GFR (Non-Af Amer) 30 L Glucose 119 H Calcium 8.5 11/12/17 11/14/17 23:18 14:21 Troponin I 0.045 NT-Pro-B Natriuret Pep 2810 H EKG Comments: Showed atrial paced rhythm. No sustained tachycardia or bradycardia arrhythmias noted. Impressions: Chest X-Ray 11/12/17 18:15 IMPRESSION: HEART ENLARGED WITHOUT FAILURE. NO OTHER SIGNIFICANT RADIOGRAPHIC FINDING IN THE CHEST. Assessment & Plan - Diagnosis (1) CHF exacerbation Is this a current diagnosis for this admission?: Yes (2) COPD (chronic obstructive pulmonary disease) Qualifiers: COPD type: emphysema Emphysema type: unspecified Qualified Code(s): J43.9 - Emphysema, unspecified Is this a current diagnosis for this admission?: Yes (3) Coronary artery disease Qualifiers: Coronary Disease-Associated Artery/Lesion type: unspecified vessel or lesion type [place] vs. transplanted heart: [place] heart Associated angina: angina presence unspecified Qualified Code(s): I25.10 - Atherosclerotic heart disease of [place] coronary artery without angina pectoris Is this a current diagnosis for this admission?: Yes (4) DM type 2 (diabetes mellitus, type 2) Qualifiers: Diabetes mellitus complication status: with unspecified complications Diabetes mellitus [facility] insulin use: unspecified keno terminal operator insulin use status Qualified Code(s): E11.8 - Type 2 diabetes mellitus with unspecified complications Is this a current diagnosis for this admission?: Yes (5) Hyperlipidemia Qualifiers: Hyperlipidemia type: unspecified Qualified Code(s): E78.5 - Hyperlipidemia , unspecified Is this a current diagnosis for this admission?: Yes (6) Hypertension Qualifiers: Hypertension type: essential hypertension Qualified Code(s): I10 - Essential (primary) hypertension Is this a current diagnosis for this admission?: Yes (7) PVD (peripheral vascular disease) Is this a current diagnosis for this admission?: Yes (8) History of implantable cardioverter-defibrillator (ICD) placement Is this a current diagnosis for this admission?: Yes - Notes Notes: CHF exacerbation: Continue with IV diuretic therapy. May consider switch to p.o. torsemide which might work better in presence of renal dysfunction. Continue p.o. Zaroxolyn. Will try optimize therapy for underlying cardiomyopathy. Will recommend starting entresto therapy at low-dose. May need to monitor renal functions very closely. COPD: Agree with current management plans. Coronary artery disease: Currently symptomatically stable without any angina symptoms. Diabetes: Recommend good management of diabetes but avoid any hypo-or hyperglycemia. Hypertension: Blood pressure goal should be 135/85 or less but could well be more liberal in this patient because of Multiple other comorbidities. PVD with wound infection: Recommend vascular surgery consultation, wound care consultation. History of ICD placement: Patient tells me that he is due for replacement of the battery of the defibrillator. Recommend interrogation and possibly asking local surgeon to replace it if they are willing to do so. Otherwise patient would need to go to [place] for battery replacement. May consider venous duplex ultrasound study of the right lower extremity. - Time Time with patient: 15-25 minutes - CODE STATUS was discussed, patient remains full code. Surrogate decision-maker unchanged. Multiple medical problems were addressed. More than 50% of the time spent coordinating care, discussing management plans with involved caregivers. Management plans discussed with involved personnels. Medical decision making was of moderate to high complexity , patient's has multiple comorbidities. Medications reviewed and adjusted accordingly: Yes
[2017-11-16] MEDS: FINASTERIDE 5 MG TABLET PO SCH (21:47)
[2017-11-16] MEDS: WARFARIN SODIUM 2 MG TABLET PO SCH (21:47)
[2017-11-16] MEDS: TAMSULOSIN HCL 0.4 MG CAP.SR.24H PO SCH (21:48)
[2017-11-16] MEDS: ATORVASTATIN CALCIUM 40 MG TABLET PO SCH (21:48)
[2017-11-16] MEDS: MONTELUKAST SODIUM 10 MG TABLET PO SCH (21:49)
[2017-11-16] MEDS ORDERED: SACUBITRIL/VALSARTAN 24 MG/26 MG TABLET PO SCH (22:00)
[2017-11-16] MEDS: SACUBITRIL/VALSARTAN 24 MG/26 MG TABLET PO SCH (22:48)
[2017-11-16] MEDS: INSULIN GLARGINE,HUM.REC.ANLOG 300 UNIT/3 ML INSULN.PEN SUBCUT SCH (22:48)
[2017-11-16 23:50] LABS: ARTERIAL BLOOD BASE EXCESS 9.5 mmol/L; ARTERIAL BLOOD FIO2 40%; ARTERIAL BLOOD H2CO3 1.96 mmol/L (1.05-1.35); ARTERIAL BLOOD O2 SATURATION 96.6 % (94-98); ARTERIAL BLOOD PCO2 65.2 mmHg (35-45); ARTERIAL BLOOD PH 7.37 (7.35-7.45); ARTERIAL BLOOD PO2 92.6 mmHg (80-100)
[2017-11-17] MEDS: HYDROCODONE/ACETAMINOPHEN 10-325 MG TABLET PO PRN ×3 (01:41→18:16)
[2017-11-17 06:02] LABS: ANION GAP 5 (5-19); BLOOD UREA NITROGEN 59 mg/dL (7-20); CALCIUM 8.2 mg/dL (8.4-10.2); CARBON DIOXIDE 34 mmol/L (22-30); CHLORIDE 100 mmol/L (98-107); GLUCOSE 160 mg/dL (75-110); POTASSIUM 3.6 mmol/L (3.6-5.0); SODIUM 139.3 mmol/L (137-145)
[2017-11-17 06:03] LABS: ABSOLUTE RETICS # 0.058 10^6/uL (0.028-0.122); RETICULOCYTE COUNT (AUTO) 1.75 % (0.66-2.85)
[2017-11-17 06:17] LABS: INTERNATIONAL RATION (INR) 0.87; PROTHROMBIN TIME 12.5 SEC (11.4-15.4)
[2017-11-17 06:18] LABS: IRON(TIBC) < 10.1 ug/dL (49-181)
[2017-11-17] MEDS: LANSOPRAZOLE 30 MG TAB.RAP.DR PO SCH (06:20)
[2017-11-17 07:14] LABS: FOLATE > 20.00 ng/mL (>2.76)
--- NOTE | 2017-11-17 07:44 | XCELERA REPORT ---
[address] [address] Lower Extremity Venous Evaluation Name: TRUONG PINK Age: 77 yrs Gender: Male : 1940 Patient Status: Inpatient Patient Location: [address] [place], [place] [address] Study Date: 11/16/2017 01:27 PM Procedure: Color flow and duplex imaging bilaterally of the veins of the lower extremities as well as the Common Femoral veins. Reason For Study: Swelling Ordering Physician: INÉS LEWIS Performed By: Henny Rodríguez Right Sided Venous Evaluation Normal vessel filling wall to wall, compression and augmentation as well as Colour flow down to the infrageniculate veins. Left Sided Venous Evaluation limited due to below knee amputation. Chronic occlusion of a vein graft noted. Normal vessel filling wall to wall, compression and augmentation as well as Colour flow in the evaluable veins. Interpretation Summary No DVT in the lower extremities, the presence of a left BKA and old occluded vein graft noted. : INÉS LEWIS > David Morel
--- NOTE | 2017-11-17 07:48 | XCELERA REPORT ---
[address] [address] Lower Extremity Arterial Evaluation Name: TRUONG PINK Age: 77 yrs Gender: Male : 1940 Patient Status: Inpatient Patient Location: [address] [place] [address] Study Date: 11/16/2017 01:53 PM Procedure: A color flow and duplex scan of the lower extremity arteries was performed on the right with velocity and waveform anaylsis. Reason For Study: right lower extremity Ordering Physician: JOVANY KOVACS Performed By: Henny Rodríguez Measurements and Calculations Right Left CARDIOVASCULAR SONOGRAPHER PSV 118.6 cm/sec Prox PFA PSV -126.5 cm/sec Prox SFA PSV 155.6 cm/sec Mid SFA PSV -46.2 cm/sec Dist SFA PSV -51.6 cm/sec Dist TOÑO PSV 33.0 cm/sec Dist SPRING UP SUPERVISOR PSV -42.0 cm/sec Izaiah Pedis PSV -16.6 cm/sec Right Side Arterial Evaluation Normal velocity and triphasic waveforms noted in the Common Femoral artery. Monophasic with moderate attenuation to the infrageniculate vessels. 50-99 % stenosis at the Femoral artery. Ankle Brachial index was not done due to presence of ulcers. Interpretation Summary Severe hemodynamically significant lesions in the right lower extremity only, on duplex imaging, at rest. : JOVANY KOVACS > David Morel
[2017-11-17] MEDS ORDERED: TIOTROPIUM BROMIDE DPI 5 CAP/KIT (18 MCG/CAP) IH ONE (11:49)
[2017-11-17] MEDS: PREGABALIN 75 MG CAPSULE PO SCH ×2 (12:05→22:26)
[2017-11-17] MEDS: RANOLAZINE 500 MG TAB.SR.12H PO SCH ×2 (12:06→22:26)
[2017-11-17] MEDS: NYSTATIN 500000 UNIT/5 ML UDCUP PO SCH ×4 (12:06→22:26)
[2017-11-17] MEDS: CHOLECALCIFEROL (D3) 400 UNIT TABLET PO SCH (12:08)
[2017-11-17] MEDS: ALLOPURINOL 300 MG TABLET PO SCH (12:08)
[2017-11-17] MEDS: MULTIVITAMIN TABLET PO SCH (12:08)
--- NOTE | 2017-11-17 12:08 | PDOC PROGRESS REPORT ---
Subjective Progress Note for:: 11/17/17 Subjective:: Patient is seen on rounds. He is sitting on the side of the bed. He states he just took his BIPAP mask off because he needs to go to the bathroom. He is having jerking tremors of upper extremities associated with hypercapneic respiratory failure. His pain medication has been decreased because of this. He denies any chest pain. He continues to have edema and chronic venous congestion in the right lower extremities. They are improved from the last time I saw him, but still significantly swollen. He denies any nausea, vomiting or abdominal pain. Remaining review of system are negative Reason For Visit: COPD EXCAERBATION Physical Exam Vital Signs: Temp Pulse Resp BP Pulse Ox 98.9 F 60 17 103/39 L 100 11/17/17 07:53 11/17/17 07:53 11/17/17 07:53 11/17/17 07:53 11/17/17 07:53 Intake & Output 11/16/17 11/17/17 11/18/17 06:59 06:59 06:59 Intake Total 1226 704 Output Total 700 0 Balance 526 704 Weight 114.4 kg 113.6 kg General appearance: PRESENT: no acute distress, obese, well-developed, well- nourished Head exam: PRESENT: atraumatic, normocephalic Eye exam: PRESENT: conjunctiva pink, EOMI, PERRLA. ABSENT: scleral icterus Ear exam: PRESENT: normal external ear exam Mouth exam: PRESENT: moist, tongue midline Neck exam: ABSENT: carotid bruit, JVD, lymphadenopathy, thyromegaly Respiratory exam: PRESENT: clear to auscultation dipti. ABSENT: rales, rhonchi, wheezes Cardiovascular exam: PRESENT: irregular rhythm, +S1, +S2 Pulses: PRESENT: normal carotid pulses, normal radial pulses Vascular exam: PRESENT: pallor - Chronic venous stasis of right lower extremity , left BKA, other GI/Abdominal exam: PRESENT: ascites, normal bowel sounds, soft Rectal exam: PRESENT: deferred Extremities exam: PRESENT: full ROM, +2 edema - right lower leg. ABSENT: calf tenderness, clubbing, pedal edema Musculoskeletal exam: PRESENT: full ROM, tenderness - right lower leg Neurological exam: PRESENT: alert, awake, oriented to person, oriented to place , oriented to time, oriented to situation, CN II-XII grossly intact. ABSENT: motor sensory deficit Psychiatric exam: PRESENT: anxious Skin exam: PRESENT: abrasion, erythema, vesicles - right lower leg, warm Results Laboratory Results: 11/16/17 05:19 11/17/17 04:59 11/16/17 11/17/17 11/17/17 23:11 04:59 04:59 Retic Count (auto) 1.75 Absolute Retic 0.058 Carbonic Acid 1.96 H HCO3/H2CO3 Ratio 18:1 ABG pH 7.37 ABG pCO2 65.2 H ABG pO2 92.6 ABG HCO3 37.0 H ABG O2 Saturation 96.6 ABG Base Excess 9.5 FiO2 40% Sodium 139.3 Potassium 3.6 Chloride 100 Carbon Dioxide 34 H Anion Gap 5 BUN 59 H Creatinine 2.12 H Est GFR ( Amer) 37 L Est GFR (Non-Af Amer) 30 L Glucose 160 H Calcium 8.2 L Magnesium 1.9 Iron < 10.1 L TIBC 284 % Saturation UNABLE TO CALCULATE Ferritin 49.40 Vitamin B12 957.0 H Folate > 20.00 11/12/17 11/14/17 23:18 14:21 Troponin I 0.045 NT-Pro-B Natriuret Pep 2810 H Impressions: Chest X-Ray 11/12/17 18:15 IMPRESSION: HEART ENLARGED WITHOUT FAILURE. NO OTHER SIGNIFICANT RADIOGRAPHIC FINDING IN THE CHEST. Assessment & Plan - Diagnosis (1) Acute on chronic respiratory failure with hypoxia and hypercapnia Is this a current diagnosis for this admission?: Yes Plan: Patient continues to need BIPAP most of the time. He is having tremors mostly likely due to his hypercapnea being off BIPAP. He is asking for a pill to stop these tremors. He is has end stage heart failure in combination with COPD. He is not realistic regarding his current diagnosis or prognosis. He continues to want to be a full code. He thinks if he could go to [facility] he could get better. He is noncompliant with diet as well. He is being followed by cardiology and nephrology services as well. (2) Acute kidney injury superimposed on CKD Is this a current diagnosis for this admission?: Yes Plan: Nephrology is following . Diuresis has been cut back (3) Acute on chronic diastolic heart failure Is this a current diagnosis for this admission?: Yes Plan: He appears improved but still has edema of right lower leg (4) Anemia Qualifiers: Other causes of anemia: chronic disease, other Is this a current diagnosis for this admission?: Yes Plan: Stable (5) CAD (coronary artery disease) Qualifiers: Coronary Disease-Associated Artery/Lesion type: unspecified vessel or lesion type [place] vs. transplanted heart: [place] heart Associated angina: angina presence unspecified Qualified Code(s): I25.10 - Atherosclerotic heart disease of [place] coronary artery without angina pectoris Plan: Continue current medications. Cardiology is following (6) Chronic anticoagulation Is this a current diagnosis for this admission?: Yes (7) Chronic atrial fibrillation Is this a current diagnosis for this admission?: Yes Plan: Rate controlled (8) Chronic diastolic heart failure Is this a current diagnosis for this admission?: Yes (9) Chronic idiopathic thrombocytopenia Is this a current diagnosis for this admission?: Yes (10) Constipation Qualifiers: Constipation type: chronic idiopathic constipation Qualified Code(s): K59.04 - Chronic idiopathic constipation Is this a current diagnosis for this admission?: Yes Plan: Continue stool softeners and laxatives (11) Obesity (BMI 30.0-34.9) Is this a current diagnosis for this admission?: Yes - Time Time Spent with patient: 25-34 minutes Medications reviewed and adjusted accordingly: Yes
[2017-11-17] MEDS: METOLAZONE 5 MG TABLET PO SCH (12:11)
[2017-11-17] MEDS: DRONEDARONE HYDROCHLORIDE 400 MG TABLET PO SCH ×2 (12:13→22:26)
[2017-11-17] MEDS: MAGNESIUM OXIDE 400 MG TABLET PO SCH ×2 (12:14→18:17)
[2017-11-17] MEDS: ASPIRIN 81 MG TABLET, ENT COATED PO SCH (12:15)
[2017-11-17] MEDS: POTASSIUM CHLORIDE 10 MEQ TABLET.SA PO SCH (12:15)
[2017-11-17] MEDS: SENNOSIDES/DOCUSATE 8.6-50 MG 1 EACH TABLET PO SCH ×2 (12:17→18:16)
[2017-11-17] MEDS: BUDESONIDE/FORMOTEROL 160-4.5 MCG 60 PUFF/6 GM MDI IH SCH ×2 (12:18→22:27)
[2017-11-17] MEDS ORDERED: BUDESONIDE NEB 0.5 MG/2 ML AMPUL NEB ONE (12:45)
[2017-11-17] MEDS ORDERED: OSELTAMIVIR PHOSPHATE 75 MG CAPSULE PO ONE (12:45)
[2017-11-17] MEDS ORDERED: ROFLUMILAST 500 MCG TABLET PO ONE (12:45)
[2017-11-17] MEDS: SACUBITRIL/VALSARTAN 24 MG/26 MG TABLET PO SCH ×2 (12:50→23:54)
[2017-11-17] MEDS: ISOSORBIDE MONONITRATE 30 MG TAB.ER.24H PO SCH (12:50)
[2017-11-17] MEDS: METOPROLOL SUCCINATE 50 MG TAB.SR.24H PO SCH ×2 (12:50→22:26)
[2017-11-17] MEDS: BUMETANIDE INJ/PF 1 MG/4 ML SDV IV SCH ×2 (13:54→22:26)
[2017-11-17] MEDS: NITROGLYCERIN 2.5 MG (0.1 MG/HR) PATCH.TD24 TD SCH (13:55)
[2017-11-17] MEDS: LEVALBUTEROL HCL NEB 1.25 MG/3 ML AMPUL NEB SCH ×2 (13:56→20:06)
[2017-11-17 15:03] LABS: ARTERIAL BLOOD BASE EXCESS 9.4 mmol/L; ARTERIAL BLOOD FIO2 30%; ARTERIAL BLOOD H2CO3 1.81 mmol/L (1.05-1.35); ARTERIAL BLOOD HCO3 36.1 mmol/L (20-26); ARTERIAL BLOOD O2 SATURATION 98.6 % (94-98); ARTERIAL BLOOD PCO2 60.1 mmHg (35-45); ARTERIAL BLOOD PO2 136.2 mmHg (80-100)
[2017-11-17 15:40] LABS: A TYPE INFLUENZA AG NEGATIVE (NEGATIVE); B INFLUENZA AG NEGATIVE (NEGATIVE)
--- NOTE | 2017-11-17 18:00 | PDOC CONSULTATION ---
Consultation Consult Date: 11/17/17 Attending physician:: JARROD ROSE Consult reason:: dyspnea History of Present Illness Admission Date/PCP: 11/12/17 21:53 RUY CARTWRIGHT MD History of Present Illness: TRUONG PINK is a 77 year old male with a history of atrial fibrillation on Multaq and Coumadin, and AICD with pacemaker, peripheral vascular disease, ischemic heart disease post coronary artery bypass graft, congestive heart failure with a EF of 30-35% and moderate diastolic failure with pulmonary hypertension, obstructive sleep apnea, diabetes and stage III renal failure, posttraumatic splenectomy and Metzger with ascites presenting with increased swelling and shortness of breath. Patient states he was swollen on day of discharge and was not feeling well. He was discharged and came back less than 15 hours later. At the time he was stating that he felt his swelling was worse. He states that it was to the point that the fluid was oozing through his dressing and he has a blisters on his legs. Patient was also placed on BiPAP. . Past Medical History Cardiac Medical History: Reports: Atrial Fibrillation, Congestive Heart Failure , Coronary Artery Disease, Myocardial Infarction - x6, Hyperlipidema, Hypertension, Peripheral Vascular Disease, Pulmonary Embolism Pulmonary Medical History: Reports: Asthma, Bronchitis, Chronic Obstructive Pulmonary Disease (COPD), Sleep Apnea - without c-pap Denies: Pneumonia, Respiratory Failure, Tuberculosis Neurological Medical History: Denies: Seizures Endocrine Medical History: Reports: Diabetes Mellitus Type 2 Denies: Hyperthyroidism, Hypothyroidism Renal/ Medical History: Denies: End Stage Renal Disease Malignancy Medical History: Denies: Leukemia, Lung Cancer GI Medical History: Reports: Gastroesophageal Reflux Disease Denies: Hepatitis, Hiatal Hernia Musculoskeltal Medical History: Reports: Arthritis Denies: Fibromyalgia Psychiatric Medical History: Denies: Dementia, Depression Hematology: Denies: Anemia, Hemophilia, Sickle Cell Disease Infectious Medical History: Denies: HIV Past Surgical History Past Surgical History: Reports: Cardiac Catheterization, Coronary Artery Bypass Graft - quadruple, Coronary Stent, Internal Defibrillator, Orthopedic Surgery - Left BKA, Pacemaker Denies: Appendectomy, Cholecystectomy, Gastric Bypass Surgery, Herniorrhaphy , Tonsillectomy Social History Lives with: Family Smoking Status: Former Smoker Passive smoke exposure as: Both Frequency of Alcohol Use: None Hx Recreational Drug Use: No Drugs: None Hx Prescription Drug Abuse: No - Advance Directive Resuscitation Status: Full Code Family History Family History: CAD, COPD Parental Family History Reviewed: Yes Children Family History Reviewed: Yes Sibling(s) Family History Reviewed.: Yes Medication/Allergy Home Medications: Albuterol Sulfate [Ventolin HFA MDI 18 GM] 1 puff IH Q6HP PRN 11/13/17 Allopurinol [Zyloprim 300 mg Tablet] 150 mg PO DAILY 11/13/17 Aspirin [Ecotrin 81 mg EC Tablet] 81 mg PO DAILY 11/13/17 Atorvastatin Calcium [Lipitor 40 mg Tablet] 40 mg PO QHS 11/13/17 Budesonide/Formoterol Fumarate [Symbicort 160-4.5 Mcg Inhaler] 2 puff IH Q12 07/21 Bumetanide [Bumex 2 mg Tablet] 2 mg PO DAILY 11/13/17 Cholecalciferol (Vitamin D3) [Vitamin D3 400 Unit Tablet] 400 unit PO DAILY 07/21 Dronedarone Hydrochloride [Multaq 400 mg Tablet] 400 mg PO Q12 11/13/17 Finasteride [Proscar 5 mg Tablet] 5 mg PO QHS 11/13/17 Hydralazine HCl [Apresoline 25 mg Tablet] 25 mg PO Q12 11/13/17 Hydrocodone/Acetaminophen [Hydrocodone-Acetamin 10-325 mg] 1 tab PO Q6HP PRN 07/21 Insulin Glargine,Hum.rec.anlog [Lantus Solostar] 20 unit SQ QHS 11/13/17 Isosorbide Mononitrate [Imdur 30 mg Tablet.er] 90 mg PO DAILY 11/13/17 Magnesium Oxide [Mag-Ox 400 mg Tablet] 400 mg PO BID 11/13/17 Metoprolol Succinate [Toprol Xl 50 mg Tab.sr] 50 mg PO DAILY 11/13/17 Montelukast Sodium [Singulair 10 mg Tablet] 10 mg PO QHS 11/13/17 Multivitamin [Tab-A-Maris (Multiple Vitamin) Tablet] 1 tab PO DAILY 11/13/17 Omeprazole 20 mg PO DAILY 11/13/17 Polyethylene Glycol 3350 [Miralax Powder 17 gm/Packet] 17 gm PO QPMP PRN Pregabalin [Lyrica] 150 mg PO Q12 11/13/17 Ranolazine [Ranexa 500 mg Tab.sr] 1,000 mg PO Q12 11/13/17 Sennosides/Docusate 8.6-50 mg [Senna Plus Tablet] 1 tab PO BID 11/13/17 Tamsulosin HCl [Flomax 0.4 mg Cap.sr] 0.8 mg PO QHS 11/13/17 Terazosin HCl 1 mg PO DAILY 11/13/17 Tiotropium Paul [Spiriva Handihaler 5 Cap/Kit (18 Mcg/Cap)] 1 puff IH DAILY 11/13/17 Warfarin Sodium [Coumadin 2 mg Tablet] 2 mg PO QHS 11/13/17 Zolpidem Tartrate [Ambien 5 mg Tablet] 5 mg PO HSP PRN 11/13/17 Allergies/Adverse Reactions: Penicillins Allergy (Unknown, Verified 05/17/17 10:40) vancomycin [Vancomycin] Adverse Reaction (Verified 08/24/16 13:13) Review of Systems ROS unobtainable: Due to mental status Physical Exam Vital Signs: Temp Pulse Resp BP Pulse Ox 98.9 F 60 17 103/39 L 100 11/17/17 07:53 11/17/17 07:53 11/17/17 07:53 11/17/17 07:53 11/17/17 07:53 Intake & Output 11/16/17 11/17/17 11/18/17 06:59 06:59 06:59 Intake Total 1226 704 Output Total 700 0 Balance 526 704 Weight 114.4 kg 113.6 kg General appearance: PRESENT: disheveled, mild distress, morbidly obese Head exam: PRESENT: atraumatic, normocephalic Eye exam: PRESENT: conjunctiva pale. ABSENT: conjunctiva pink, nystagmus, periorbital swelling, scleral icterus Mouth exam: PRESENT: dry mucosa, neck supple. ABSENT: laceration, moist Neck exam: ABSENT: carotid bruit, JVD, lymphadenopathy, thyromegaly, tracheal deviation, tracheostomy Respiratory exam: PRESENT: accessory muscle use, crackles, decreased breath sounds, prolonged expiratory phas, rhonchi, symmetrical, tachypnea, wheezes. ABSENT: chest wall tenderness, clear to auscultation dipti, retraction, unlabored Cardiovascular exam: PRESENT: irregular rhythm, +S1, tachycardia Pulses: PRESENT: normal radial pulses GI/Abdominal exam: PRESENT: diminished bowel sounds, soft Extremities exam: PRESENT: +1 edema. ABSENT: clubbing Musculoskeletal exam: PRESENT: other - sp bka. ABSENT: deformity, dislocation Neurological exam: PRESENT: awake Skin exam: PRESENT: dry, warm Results Laboratory Results: 11/16/17 05:19 11/17/17 04:59 11/16/17 11/17/17 11/17/17 23:11 04:59 04:59 Retic Count (auto) 1.75 Absolute Retic 0.058 Carbonic Acid 1.96 H HCO3/H2CO3 Ratio 18:1 ABG pH 7.37 ABG pCO2 65.2 H ABG pO2 92.6 ABG HCO3 37.0 H ABG O2 Saturation 96.6 ABG Base Excess 9.5 FiO2 40% Sodium 139.3 Potassium 3.6 Chloride 100 Carbon Dioxide 34 H Anion Gap 5 BUN 59 H Creatinine 2.12 H Est GFR ( Amer) 37 L Est GFR (Non-Af Amer) 30 L Glucose 160 H Calcium 8.2 L Magnesium 1.9 Iron < 10.1 L TIBC 284 % Saturation UNABLE TO CALCULATE Ferritin 49.40 Vitamin B12 957.0 H Folate > 20.00 11/12/17 11/14/17 23:18 14:21 Troponin I 0.045 NT-Pro-B Natriuret Pep 2810 H Impressions: Chest X-Ray 11/12/17 18:15 IMPRESSION: HEART ENLARGED WITHOUT FAILURE. NO OTHER SIGNIFICANT RADIOGRAPHIC FINDING IN THE CHEST. Assessment & Plan - Diagnosis (1) Anasarca Is this a current diagnosis for this admission?: Yes Plan: CHF And chronic renal failure (2) Blisters of multiple sites Is this a current diagnosis for this admission?: Yes Plan: Chronic venous stasis poor circulation (3) PVD (peripheral vascular disease) Is this a current diagnosis for this admission?: Yes (4) Acute and chronic respiratory failure Qualifiers: Respiratory failure complication: hypoxia and hypercapnia Qualified Code(s) : J96.21 - Acute and chronic respiratory failure with hypoxia; J96.22 - Acute and chronic respiratory failure with hypercapnia; J96.22 - Acute and chronic respiratory failure with hypercapnia; J96.22 - Acute and chronic respiratory failure with hypercapnia Is this a current diagnosis for this admission?: Yes Plan: Patient is relatively BiPAP dependent continue BiPAP and supplemental oxygen minimized to keep SaO2 greater than or equal to 90% not to exceed 94% (5) CHF exacerbation Is this a current diagnosis for this admission?: Yes Plan: As per cardiology (6) COPD (chronic obstructive pulmonary disease) Qualifiers: COPD type: emphysema Emphysema type: unspecified Qualified Code(s): J43.9 - Emphysema, unspecified Is this a current diagnosis for this admission?: Yes Plan: Initiate bronchodilator therapy Xopenex hopefully this will be less stimulatory Spiriva and Pulmicort nebulizers and Daliresp
[2017-11-17] MEDS ORDERED: FERUMOXYTOL 510 MG in NORMAL SALINE 100 ML IV ONE (19:00)
--- NOTE | 2017-11-17 19:51 | PDOC PROGRESS REPORT ---
Subjective Progress Note for:: 11/17/17 Subjective:: Patient claims to be doing worse. He claims jerking motion of his upper and lower extremity. He is noted to have asterixis. He had this problem during his last admission as well. Patient was also noted to be more short of breath and noted to be wheezing.. Pt is denying any chest arm or neck discomfort. Patient denied any sustained palpitations, dizziness, syncope, near syncope. Patient denying any fever chills. Patient denying any other significant discomfort. Patient is atrial paced rhythm. No sustained tachycardia or bradycardia arrhythmias noted. Review of systems: Rest review of systems negative. Medications: Medications have been reviewed. Reason For Visit: COPD EXCAERBATION Physical Exam Vital Signs: Temp Pulse Resp BP Pulse Ox 99.5 F 59 L 21 H 148/111 H 95 11/17/17 16:22 11/17/17 16:22 11/17/17 16:55 11/17/17 16:22 11/17/17 16:22 Intake & Output 11/16/17 11/17/17 11/18/17 06:59 06:59 06:59 Intake Total 1226 704 10 Output Total 700 0 1000 Balance 526 704 -990 Weight 114.4 kg 113.6 kg Exam: GENERAL: well-nourished and mild respiratory distress. Alert and oriented x3 HEAD: Atraumatic, normocephalic. EYES: Pupils equal round and reactive to light, extraocular movements intact, sclera anicteric, conjunctiva are normal. ENT: TMs normal, nares patent, oropharynx clear without exudates. Moist mucous membranes. No oral ulcerations or bleeding gums noted NECK: supple without lymphadenopathy. Trachea is central. No cervical or axillary lymphadenopathy noted. Carotids are 2+, JVD 8-10 cm LUNGS: Respiration seems nonlabored, no significant accessory muscle action noted. Bilateral coarse crackles noted. bilateral wheezes rales or rhonchi noted. No significant dullness noted on percussion. CHEST: Palpation of the chest wall shows no significant chest wall tenderness. No other significant abnormalities noted. 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 ABDOMEN: Soft, no significant tenderness appreciated, normoactive bowel sounds. No guarding, no rebound. No rigidity noted . No masses appreciated. EXTREMITIES: left below the knee amputation. The right leg has wound that is is covered up. At least 2-3+ edema noted of the right lower extremity with some superficial ulcerations. NEUROLOGICAL: Focused neurological exam showed no significant neurologic deficit. Normal speech, no focal weakness appreciated. PSYCH: Normal mood, normal affect. Judgment and insight within normal limits. SKIN: No significant ecchymosis, rash, signs of pruritus noted. Patient does have some ulcerations, which is superficial and covered with bandages. MUSCULOSKELETAL EXAM: No significant joint swelling noted. Results Laboratory Results: 11/16/17 05:19 11/17/17 04:59 11/16/17 11/17/17 11/17/17 23:11 04:59 04:59 Retic Count (auto) 1.75 Absolute Retic 0.058 Carbonic Acid 1.96 H HCO3/H2CO3 Ratio 18:1 ABG pH 7.37 ABG pCO2 65.2 H ABG pO2 92.6 ABG HCO3 37.0 H ABG O2 Saturation 96.6 ABG Base Excess 9.5 FiO2 40% Sodium 139.3 Potassium 3.6 Chloride 100 Carbon Dioxide 34 H Anion Gap 5 BUN 59 H Creatinine 2.12 H Est GFR ( Amer) 37 L Est GFR (Non-Af Amer) 30 L Glucose 160 H Calcium 8.2 L Magnesium 1.9 Iron < 10.1 L TIBC 284 % Saturation UNABLE TO CALCULATE Ferritin 49.40 Vitamin B12 957.0 H Folate > 20.00 11/17/17 14:05 Retic Count (auto) Absolute Retic Carbonic Acid 1.81 H HCO3/H2CO3 Ratio 19:1 ABG pH 7.40 ABG pCO2 60.1 H ABG pO2 136.2 H ABG HCO3 36.1 H ABG O2 Saturation 98.6 H ABG Base Excess 9.4 FiO2 30% Sodium Potassium Chloride Carbon Dioxide Anion Gap BUN Creatinine Est GFR ( Amer) Est GFR (Non-Af Amer) Glucose Calcium Magnesium Iron TIBC % Saturation Ferritin Vitamin B12 Folate 11/12/17 11/14/17 23:18 14:21 Troponin I 0.045 NT-Pro-B Natriuret Pep 2810 H Impressions: Chest X-Ray 11/12/17 18:15 IMPRESSION: HEART ENLARGED WITHOUT FAILURE. NO OTHER SIGNIFICANT RADIOGRAPHIC FINDING IN THE CHEST. Assessment & Plan - Diagnosis (1) CHF exacerbation Is this a current diagnosis for this admission?: Yes (2) COPD (chronic obstructive pulmonary disease) Qualifiers: COPD type: emphysema Emphysema type: unspecified Qualified Code(s): J43.9 - Emphysema, unspecified Is this a current diagnosis for this admission?: Yes (3) Coronary artery disease Qualifiers: Coronary Disease-Associated Artery/Lesion type: unspecified vessel or lesion type [place] vs. 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 terminal clerk insulin use: unspecified nursing home insulin use status Qualified Code(s): E11.8 - Type 2 diabetes mellitus with unspecified complications Is this a current diagnosis for this admission?: Yes (5) Hyperlipidemia Qualifiers: Hyperlipidemia type: unspecified Qualified Code(s): E78.5 - Hyperlipidemia , unspecified Is this a current diagnosis for this admission?: Yes (6) Hypertension Qualifiers: Hypertension type: essential hypertension Qualified Code(s): I10 - Essential (primary) hypertension Is this a current diagnosis for this admission?: Yes (7) PVD (peripheral vascular disease) Is this a current diagnosis for this admission?: Yes (8) History of implantable cardioverter-defibrillator (ICD) placement Is this a current diagnosis for this admission?: Yes - Notes Notes: Patient has numerous significant medical issues. Currently seems to be having a COPD exacerbation. Pulmonary was consulted. They have initiated some bronchodilator therapy and other management. Patient asterixis could be related to CO2 retention but could well be related to hepatic failure which patient is known to have been the past. It may be worthwhile to consider checking an ammonia level. Patient continues to show significant fluid retention. Continue with IV diuretics. Other evaluations performed during this hospitalization reviewed. Venous duplex was negative for DVT. Telemetry strip shows normal functioning of his defibrillator. - Time Time with patient: Greater than 35 minutes - CODE STATUS was discussed, patient remains full code. Surrogate decision-maker unchanged. Multiple medical problems were addressed. More than 50% of the time spent coordinating care, discussing management plans with involved caregivers. Management plans discussed with involved personnels. Medical decision making was of moderate to high complexity, patient's has multiple comorbidities. Medications reviewed and adjusted accordingly: Yes
[2017-11-17] MEDS: BUDESONIDE NEB 0.5 MG/2 ML AMPUL NEB SCH (20:06)
--- NOTE | 2017-11-17 20:44 | PDOC PROGRESS REPORT ---
Subjective Progress Note for:: 11/17/17 Subjective:: Patient was seen today laying in his bed. At the time he was less short of breath after using bipap. He still was having asterixis. Looks to be doing worse since yesterday. He denies any chest pain/pressure, fevers or chills. Reason For Visit: COPD EXCAERBATION Physical Exam Vital Signs: Temp Pulse Resp BP Pulse Ox 99.5 F 59 L 21 H 148/111 H 95 11/17/17 16:22 11/17/17 16:22 11/17/17 16:55 11/17/17 16:22 11/17/17 16:22 Intake & Output 11/16/17 11/17/17 11/18/17 06:59 06:59 06:59 Intake Total 1226 704 10 Output Total 700 0 1000 Balance 526 704 -990 Weight 114.4 kg 113.6 kg General appearance: PRESENT: no acute distress, well-developed, well-nourished Mouth exam: PRESENT: moist, neck supple Neck exam: PRESENT: full ROM. ABSENT: JVD Respiratory exam: PRESENT: crackles, rales, rhonchi. ABSENT: accessory muscle use, clear to auscultation dipti, wheezes Cardiovascular exam: PRESENT: irregular rhythm, +S1, +S2 GI/Abdominal exam: PRESENT: normal bowel sounds, soft. ABSENT: ascites, organomegaly, tenderness Neurological exam: PRESENT: alert, awake, oriented to person, oriented to place , oriented to time, oriented to situation Skin exam: PRESENT: dry, skin tears. ABSENT: cyanosis, intact Results Laboratory Results: 11/16/17 05:19 11/17/17 04:59 11/16/17 11/17/17 11/17/17 23:11 04:59 04:59 Retic Count (auto) 1.75 Absolute Retic 0.058 Carbonic Acid 1.96 H HCO3/H2CO3 Ratio 18:1 ABG pH 7.37 ABG pCO2 65.2 H ABG pO2 92.6 ABG HCO3 37.0 H ABG O2 Saturation 96.6 ABG Base Excess 9.5 FiO2 40% Sodium 139.3 Potassium 3.6 Chloride 100 Carbon Dioxide 34 H Anion Gap 5 BUN 59 H Creatinine 2.12 H Est GFR ( Amer) 37 L Est GFR (Non-Af Amer) 30 L Glucose 160 H Calcium 8.2 L Magnesium 1.9 Iron < 10.1 L TIBC 284 % Saturation UNABLE TO CALCULATE Ferritin 49.40 Vitamin B12 957.0 H Folate > 20.00 11/17/17 14:05 Retic Count (auto) Absolute Retic Carbonic Acid 1.81 H HCO3/H2CO3 Ratio 19:1 ABG pH 7.40 ABG pCO2 60.1 H ABG pO2 136.2 H ABG HCO3 36.1 H ABG O2 Saturation 98.6 H ABG Base Excess 9.4 FiO2 30% Sodium Potassium Chloride Carbon Dioxide Anion Gap BUN Creatinine Est GFR ( Amer) Est GFR (Non-Af Amer) Glucose Calcium Magnesium Iron TIBC % Saturation Ferritin Vitamin B12 Folate 11/12/17 11/14/17 23:18 14:21 Troponin I 0.045 NT-Pro-B Natriuret Pep 2810 H Impressions: Chest X-Ray 11/12/17 18:15 IMPRESSION: HEART ENLARGED WITHOUT FAILURE. NO OTHER SIGNIFICANT RADIOGRAPHIC FINDING IN THE CHEST. Assessment & Plan - Diagnosis (1) Acute on chronic systolic heart failure Is this a current diagnosis for this admission?: Yes Plan: looks to be making good progress with current diuretic regiment. Other causes of SOB look to be related to current COPD exacerbation. (2) Anasarca Is this a current diagnosis for this admission?: Yes Plan: Swelling is improving on current diuretics but breathing looks to be worse (3) Acute kidney injury superimposed on CKD Is this a current diagnosis for this admission?: Yes Plan: currently stable (4) Chronic kidney disease, stage 3 Is this a current diagnosis for this admission?: Yes Plan: baseline is 1.8. (5) Anemia Qualifiers: Other causes of anemia: chronic disease, other Is this a current diagnosis for this admission?: Yes Plan: due to current iron panel the patient agreed to receive IV ferriheme. Advised him of the risk and benefits of IV ferriheme, including the risk of anaphylaxis or severe allergic reaction. (6) Hypertension Qualifiers: Hypertension type: essential hypertension Qualified Code(s): I10 - Essential (primary) hypertension Is this a current diagnosis for this admission?: Yes Plan: varying from the 90s to 140s systolic. May need to decrease BP medications to prevent low end of normal blood pressures (7) Acute on chronic respiratory failure with hypoxia and hypercapnia Is this a current diagnosis for this admission?: Yes Plan: looks to be getting worse, most likely due to COPD exacerbation. Currently pulmonary is consulted and managing his bipap and respiratory medications. (8) Asterixis Plan: most likely due to CO2 retention, agree with cardiology on ordering an ammonia level with prior history of liver failure. Not related to kidney disease. 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 Mcdonald.
[2017-11-17] MEDS: FINASTERIDE 5 MG TABLET PO SCH (22:26)
[2017-11-17] MEDS: WARFARIN SODIUM 2 MG TABLET PO SCH (22:26)
[2017-11-17] MEDS: MONTELUKAST SODIUM 10 MG TABLET PO SCH (22:26)
[2017-11-17] MEDS: ATORVASTATIN CALCIUM 40 MG TABLET PO SCH (22:26)
[2017-11-17] MEDS: INSULIN GLARGINE,HUM.REC.ANLOG 300 UNIT/3 ML INSULN.PEN SUBCUT SCH (23:54)
[2017-11-17] MEDS: OSELTAMIVIR PHOSPHATE 75 MG CAPSULE PO SCH (23:54)
[2017-11-17] MEDS: INSULIN REG, HUMAN 100 UNIT/ML 3 ML VIAL (PYX) SUBCUT PRN (23:55)
[2017-11-17] MEDS: SILVER SULFADIAZINE 1% CREAM 25 GM TP SCH (23:56)
[2017-11-17] MEDS: TAMSULOSIN HCL 0.4 MG CAP.SR.24H PO SCH (23:59)
[2017-11-18] MEDS: HYDROCODONE/ACETAMINOPHEN 10-325 MG TABLET PO PRN ×4 (00:26→20:29)
[2017-11-18] MEDS: LEVALBUTEROL HCL NEB 1.25 MG/3 ML AMPUL NEB SCH ×4 (02:14→21:22)
[2017-11-18 05:23] LABS: ARTERIAL BLOOD BASE EXCESS 11.1 mmol/L; ARTERIAL BLOOD FIO2 30%; ARTERIAL BLOOD H2CO3 1.95 mmol/L (1.05-1.35); ARTERIAL BLOOD HCO3 38.8 mmol/L (20-26); ARTERIAL BLOOD O2 SATURATION 94.5 % (94-98); ARTERIAL BLOOD PCO2 64.8 mmHg (35-45); ARTERIAL BLOOD PO2 74.9 mmHg (80-100); ARTERIAL BLOOD TOTAL CO2 40.8 mmol/L (23-27)
[2017-11-18] MEDS: LANSOPRAZOLE 30 MG TAB.RAP.DR PO SCH (05:59)
[2017-11-18 07:35] LABS: INTERNATIONAL RATION (INR) 2.77
[2017-11-18 07:36] LABS: PROTHROMBIN TIME 30.6 SEC (11.4-15.4)
[2017-11-18 07:38] LABS: ALANINE AMINOTRANSFERASE 33 U/L (21-72); ALBUMIN 2.5 g/dL (3.5-5.0); ALKALINE PHOSPHATASE 78 U/L (38-126); ANION GAP 7 (5-19); ASPARTATE AMINO TRANSFERASE 23 U/L (17-59); BILIRUBIN,DIRECT 0.3 mg/dL (0.0-0.4); BILIRUBIN,TOTAL 0.5 mg/dL (0.2-1.3); BLOOD UREA NITROGEN 64 mg/dL (7-20); CARBON DIOXIDE 36 mmol/L (22-30); CHLORIDE 100 mmol/L (98-107); GLUCOSE 106 mg/dL (75-110); POTASSIUM 3.8 mmol/L (3.6-5.0); TOTAL PROTEIN 4.5 g/dL (6.3-8.2)
[2017-11-18] MEDS: BUDESONIDE NEB 0.5 MG/2 ML AMPUL NEB SCH ×2 (08:13→21:22)
[2017-11-18] MEDS: SACUBITRIL/VALSARTAN 24 MG/26 MG TABLET PO SCH ×2 (09:35→23:03)
[2017-11-18] MEDS: MAGNESIUM OXIDE 400 MG TABLET PO SCH ×2 (09:36→18:22)
[2017-11-18] MEDS: PREGABALIN 75 MG CAPSULE PO SCH ×2 (09:36→23:03)
[2017-11-18] MEDS: DRONEDARONE HYDROCHLORIDE 400 MG TABLET PO SCH ×2 (09:36→23:04)
[2017-11-18] MEDS: RANOLAZINE 500 MG TAB.SR.12H PO SCH ×2 (09:37→23:03)
[2017-11-18] MEDS: ROFLUMILAST 500 MCG TABLET PO SCH (09:37)
[2017-11-18] MEDS: MULTIVITAMIN TABLET PO SCH (09:38)
[2017-11-18] MEDS: CHOLECALCIFEROL (D3) 400 UNIT TABLET PO SCH (09:38)
[2017-11-18] MEDS: POTASSIUM CHLORIDE 10 MEQ TABLET.SA PO SCH (09:38)
[2017-11-18] MEDS: OSELTAMIVIR PHOSPHATE 75 MG CAPSULE PO SCH ×2 (09:39→23:03)
[2017-11-18] MEDS: ALLOPURINOL 300 MG TABLET PO SCH (09:39)
[2017-11-18] MEDS: NYSTATIN 500000 UNIT/5 ML UDCUP PO SCH ×4 (09:39→23:03)
[2017-11-18] MEDS: METOLAZONE 5 MG TABLET PO SCH (09:40)
[2017-11-18] MEDS: ISOSORBIDE MONONITRATE 30 MG TAB.ER.24H PO SCH (09:41)
[2017-11-18] MEDS: ASPIRIN 81 MG TABLET, ENT COATED PO SCH (09:41)
[2017-11-18] MEDS: SENNOSIDES/DOCUSATE 8.6-50 MG 1 EACH TABLET PO SCH ×2 (09:41→18:23)
[2017-11-18] MEDS: NITROGLYCERIN 2.5 MG (0.1 MG/HR) PATCH.TD24 TD SCH (09:42)
[2017-11-18] MEDS: BUDESONIDE/FORMOTEROL 160-4.5 MCG 60 PUFF/6 GM MDI IH SCH ×2 (09:43→23:02)
[2017-11-18] MEDS: BUMETANIDE INJ/PF 1 MG/4 ML SDV IV SCH ×2 (09:43→23:03)
[2017-11-18] MEDS: INSULIN REG, HUMAN 100 UNIT/ML 3 ML VIAL (PYX) SUBCUT PRN ×2 (17:00→23:08)
--- NOTE | 2017-11-18 17:44 | PDOC PROGRESS REPORT ---
Subjective Progress Note for:: 11/18/17 Subjective:: The patient is resting in his bed. He has his BiPAP in place. He states he is leaving it on most of the day and only taking it off for very short periods of time. He has been seen by cardiology as well as pulmonology today. Pulmonology is added some bronchodilators to his regimen. Overall the patient states that he feels better with the BiPAP on. He states he is not as confused and feels the B no urinary complaints s CO2 level down. He has had no nausea vomiting or diarrhea. No chest pain or heart palpitations that he is aware of. He is having bowel movements. Reason For Visit: COPD EXCAERBATION Physical Exam Vital Signs: Temp Pulse Resp BP Pulse Ox 98.5 F 51 L 19 86/43 L 98 11/18/17 16:05 11/18/17 16:05 11/18/17 16:05 11/18/17 16:56 11/18/17 16:05 Intake & Output 11/17/17 11/18/17 11/19/17 06:59 06:59 06:59 Intake Total 704 360 118 Output Total 0 1850 600 Balance 704 -7690 -482 Weight 113.6 kg 114.5 kg General appearance: PRESENT: no acute distress, obese, other - He is wearing BiPAP Head exam: PRESENT: atraumatic, normocephalic Mouth exam: PRESENT: dry mucosa Respiratory exam: PRESENT: other - The patient has some scattered coarse breath sounds anteriorly throughout all lung raygoza Cardiovascular exam: PRESENT: RRR. ABSENT: diastolic murmur, rubs, systolic murmur GI/Abdominal exam: PRESENT: normal bowel sounds, soft. ABSENT: distended, guarding, mass, organolmegaly, rebound, tenderness Rectal exam: PRESENT: deferred Extremities exam: PRESENT: other - Left lower extremity is surgically absent. Right lower extremity has significant edema that extends all the way into the presacral area. Neurological exam: PRESENT: alert, awake, oriented to person, oriented to place , oriented to time, oriented to situation, CN II-XII grossly intact, other. ABSENT: motor sensory deficit Psychiatric exam: PRESENT: appropriate affect, normal mood. ABSENT: homicidal ideation, suicidal ideation Skin exam: PRESENT: dry, intact, warm, other - He has venous stasis ulcers on his right lower extremity that are oozing. There is a bandage in place.. ABSENT: cyanosis, rash Results Laboratory Results: 11/16/17 05:19 11/18/17 07:00 11/17/17 11/18/17 11/18/17 04:59 05:00 07:00 Carbonic Acid 1.95 H HCO3/H2CO3 Ratio 19:1 ABG pH 7.40 ABG pCO2 64.8 H ABG pO2 74.9 L ABG HCO3 38.8 H ABG O2 Saturation 94.5 ABG Base Excess 11.1 FiO2 30% Sodium 143.0 Potassium 3.8 Chloride 100 Carbon Dioxide 36 H Anion Gap 7 BUN 64 H Creatinine 2.55 H Est GFR ( Amer) 30 L Est GFR (Non-Af Amer) 24 L Glucose 106 Calcium 8.0 L Transferrin 181 L Total Bilirubin 0.5 AST 23 ALT 33 Alkaline Phosphatase 78 Ammonia Total Protein 4.5 L Albumin 2.5 L 11/18/17 07:00 Carbonic Acid HCO3/H2CO3 Ratio ABG pH ABG pCO2 ABG pO2 ABG HCO3 ABG O2 Saturation ABG Base Excess FiO2 Sodium Potassium Chloride Carbon Dioxide Anion Gap BUN Creatinine Est GFR ( Amer) Est GFR (Non-Af Amer) Glucose Calcium Transferrin Total Bilirubin AST ALT Alkaline Phosphatase Ammonia 11.5 Total Protein Albumin 11/12/17 11/14/17 23:18 14:21 Troponin I 0.045 NT-Pro-B Natriuret Pep 2810 H Impressions: Chest X-Ray 11/12/17 18:15 IMPRESSION: HEART ENLARGED WITHOUT FAILURE. NO OTHER SIGNIFICANT RADIOGRAPHIC FINDING IN THE CHEST. Assessment & Plan - Diagnosis (1) Acute on chronic respiratory failure with hypoxia and hypercapnia Is this a current diagnosis for this admission?: Yes Plan: We will at this point the patient is quite BiPAP dependent. Pulmonology was consulted today and we appreciate their input.Hopefully we can get him off of the BiPAP as we go along. He does have a BiPAP at home. We will continue treatment as outlined below. (2) Acute on chronic renal failure Is this a current diagnosis for this admission?: Yes Plan: His baseline creatinine is 1.8. Currently his creatinine is 2.55. Nephrology is following we certainly appreciate their assistance. We will continue diuresing the patient. (3) Acute on chronic diastolic heart failure Is this a current diagnosis for this admission?: Yes Plan: Continue metolazone. He still has significant anasarca. (4) TORRES (nonalcoholic steatohepatitis) Is this a current diagnosis for this admission?: Yes Plan: I am going to obtain a liver panel as well as an ammonia level in the morning. His lower extremity edema and anasarca could be related somewhat to this (5) Anemia Qualifiers: Other causes of anemia: chronic disease, other Is this a current diagnosis for this admission?: Yes Plan: Multifactorial secondary to chronic disease and iron deficiency. He has been given a dose of Feraheme. (6) COPD with acute exacerbation Is this a current diagnosis for this admission?: Yes Plan: He does seem to be wheezing. He has been started on bronchodilator therapy. I am going to start him on p.o. prednisone today to see if this would help with his breathing situation. (7) Chronic atrial fibrillation Is this a current diagnosis for this admission?: Yes Plan: Currently rate controlled (8) Chronic anticoagulation Is this a current diagnosis for this admission?: Yes Plan: Continue Coumadin (9) Chronic idiopathic thrombocytopenia Is this a current diagnosis for this admission?: Yes Plan: Stable. (10) Obesity (BMI 30.0-34.9) Is this a current diagnosis for this admission?: Yes Plan: Dietary discretion is advised (11) BPH (benign prostatic hyperplasia) Is this a current diagnosis for this admission?: Yes Plan: Continue Flomax (12) Hypokalemia Is this a current diagnosis for this admission?: Yes Plan: Repleted (13) Full code status Is this a current diagnosis for this admission?: Yes - Time Time Spent with patient: 25-34 minutes - Inpatient Certification Medical Necessity: Significant Comorbidiites Make Outpatient Treatment Too Risky - Also, Need Close Monitoring Due to Risk of Patient Decompensation, Other - inpatient hospitalization remains necessary. The patient is on BiPAP almost [id number]. He needs further treatment. We need to try to get him weaned off. Timing of disposition will be determined by his clinical course
[2017-11-18] MEDS ORDERED: PREDNISONE 20 MG TABLET PO ONE (18:15)
[2017-11-18] MEDS: SILVER SULFADIAZINE 1% CREAM 25 GM TP SCH (23:02)
[2017-11-18] MEDS: ATORVASTATIN CALCIUM 40 MG TABLET PO SCH (23:03)
[2017-11-18] MEDS: TAMSULOSIN HCL 0.4 MG CAP.SR.24H PO SCH (23:03)
[2017-11-18] MEDS: WARFARIN SODIUM 2 MG TABLET PO SCH (23:04)
[2017-11-18] MEDS: METOPROLOL SUCCINATE 50 MG TAB.SR.24H PO SCH (23:04)
[2017-11-18] MEDS: MONTELUKAST SODIUM 10 MG TABLET PO SCH (23:04)
[2017-11-18] MEDS: FINASTERIDE 5 MG TABLET PO SCH (23:04)
[2017-11-18] MEDS: INSULIN GLARGINE,HUM.REC.ANLOG 300 UNIT/3 ML INSULN.PEN SUBCUT SCH (23:05)
[2017-11-19] MEDS: LEVALBUTEROL HCL NEB 1.25 MG/3 ML AMPUL NEB SCH ×4 (02:11→20:17)
[2017-11-19] MEDS: HYDROCODONE/ACETAMINOPHEN 10-325 MG TABLET PO PRN ×4 (02:25→21:17)
[2017-11-19] MEDS: LANSOPRAZOLE 30 MG TAB.RAP.DR PO SCH (06:03)
[2017-11-19 06:10] LABS: HEMATOCRIT 29.9 % (37.9-51.0); MEAN CORPUSCULAR HEMOGLOBIN 30.8 pg (27.0-33.4); MEAN CORPUSCULAR HGB CONC 33.4 g/dL (32.0-36.0); MEAN CORPUSCULAR VOLUME 92 fl (80-97); PLATELET COUNT 76 10^3/uL (150-450); RED BLOOD COUNT 3.25 10^6/uL (4.35-5.55); RED CELL DISTRIBUTION WIDTH 18.5 % (11.5-14.0); WHITE BLOOD COUNT 8.3 10^3/uL (4.0-10.5)
[2017-11-19 06:15] LABS: INTERNATIONAL RATION (INR) 3.39; PROTHROMBIN TIME 35.8 SEC (11.4-15.4)
[2017-11-19 06:33] LABS: ALANINE AMINOTRANSFERASE 60 U/L (21-72); ALBUMIN 2.6 g/dL (3.5-5.0); ALKALINE PHOSPHATASE 81 U/L (38-126); ANION GAP 10 (5-19); ASPARTATE AMINO TRANSFERASE 54 U/L (17-59); BILIRUBIN,DIRECT 0.3 mg/dL (0.0-0.4); BILIRUBIN,TOTAL 0.5 mg/dL (0.2-1.3); BLOOD UREA NITROGEN 71 mg/dL (7-20); CALCIUM 8.2 mg/dL (8.4-10.2); CARBON DIOXIDE 32 mmol/L (22-30); CHLORIDE 99 mmol/L (98-107); GLUCOSE 227 mg/dL (75-110); POTASSIUM 4.1 mmol/L (3.6-5.0); SODIUM 140.6 mmol/L (137-145); TOTAL PROTEIN 4.7 g/dL (6.3-8.2)
[2017-11-19 06:49] LABS: ABSOLUTE LYMPHOCYTES# (MANUAL) 0.2 10^3/uL (0.5-4.7); ABSOLUTE MONOCYTES # (MANUAL) 0.7 10^3/uL (0.1-1.4); ABSOLUTE NEUTROPHILS# (MANUAL) 7.4 10^3/uL (1.7-8.2); BASOPHILS % (MANUAL) 0 % (0-2); EOSINOPHILS % (MANUAL) 0 % (0-6); LYMPHOCYTES % (MANUAL) 2 % (13-45); MONOCYTES % (MANUAL) 8 % (3-13); SEGMENTED NEUTROPHILS % (MAN) 89 % (42-78); TOTAL CELLS COUNTED 100
[2017-11-19 06:54] LABS: RBC MORPHOLOGY COMMENT NORMO-CYTIC/CHROMIC
[2017-11-19 06:55] LABS: PLATELET COMMENT DECREASED
[2017-11-19] MEDS: BUDESONIDE NEB 0.5 MG/2 ML AMPUL NEB SCH ×2 (08:27→20:17)
[2017-11-19] MEDS: INSULIN REG, HUMAN 100 UNIT/ML 3 ML VIAL (PYX) SUBCUT PRN ×3 (08:44→23:38)
[2017-11-19] MEDS ORDERED: NORMAL SALINE 1000 ML 500 ML IV PRN (10:34)
[2017-11-19] MEDS: NITROGLYCERIN 2.5 MG (0.1 MG/HR) PATCH.TD24 TD SCH (10:55)
[2017-11-19] MEDS: BUDESONIDE/FORMOTEROL 160-4.5 MCG 60 PUFF/6 GM MDI IH SCH ×2 (10:57→23:37)
[2017-11-19] MEDS: PREDNISONE 20 MG TABLET PO SCH (10:58)
[2017-11-19] MEDS: POTASSIUM CHLORIDE 10 MEQ TABLET.SA PO SCH (10:58)
[2017-11-19] MEDS: OSELTAMIVIR PHOSPHATE 75 MG CAPSULE PO SCH ×2 (10:59→23:34)
[2017-11-19] MEDS: MAGNESIUM OXIDE 400 MG TABLET PO SCH ×2 (10:59→19:28)
[2017-11-19] MEDS: SACUBITRIL/VALSARTAN 24 MG/26 MG TABLET PO SCH ×2 (10:59→23:35)
[2017-11-19] MEDS: ALLOPURINOL 300 MG TABLET PO SCH (10:59)
[2017-11-19] MEDS: SENNOSIDES/DOCUSATE 8.6-50 MG 1 EACH TABLET PO SCH ×2 (10:59→19:28)
[2017-11-19] MEDS: DRONEDARONE HYDROCHLORIDE 400 MG TABLET PO SCH ×2 (10:59→23:36)
[2017-11-19] MEDS: ROFLUMILAST 500 MCG TABLET PO SCH (10:59)
[2017-11-19] MEDS: ISOSORBIDE MONONITRATE 30 MG TAB.ER.24H PO SCH (10:59)
[2017-11-19] MEDS: RANOLAZINE 500 MG TAB.SR.12H PO SCH ×2 (11:00→23:35)
[2017-11-19] MEDS: PREGABALIN 75 MG CAPSULE PO SCH ×2 (11:00→23:36)
[2017-11-19] MEDS: CHOLECALCIFEROL (D3) 400 UNIT TABLET PO SCH (11:00)
[2017-11-19] MEDS: METOLAZONE 5 MG TABLET PO SCH (11:01)
[2017-11-19] MEDS: MULTIVITAMIN TABLET PO SCH (11:01)
[2017-11-19] MEDS: ASPIRIN 81 MG TABLET, ENT COATED PO SCH (11:01)
[2017-11-19] MEDS: NYSTATIN 500000 UNIT/5 ML UDCUP PO SCH ×4 (11:02→23:36)
--- NOTE | 2017-11-19 11:03 | EKG REPORT ---
SEVERITY:- ABNORMAL ECG - ATRIAL-PACED RHYTHM NONSPECIFIC INTRAVENTRICULAR CONDUCTION DELAY INFERIOR INFARCT, AGE INDETERMINATE CONSIDER ANTERIOR INFARCT : Confirmed by: Magi Garcia 19-Nov-2017 11:03:02
[2017-11-19] MEDS: BUMETANIDE INJ/PF 1 MG/4 ML SDV IV SCH (12:21)
--- NOTE | 2017-11-19 12:26 | PDOC PROGRESS REPORT ---
Subjective Progress Note for:: 11/19/17 Subjective:: The patient is resting in his bed looks much better today. He has had his BiPAP off and is stable on oxygen via nasal cannula. He denies fever chills overnight. No chest pain, or heart palpitations. He states his breathing is much easier today. Then walker after back quite no nausea, vomiting or diarrhea. No dysuria, frequency or hematuria. Reason For Visit: COPD EXCAERBATION Physical Exam Vital Signs: Temp Pulse Resp BP Pulse Ox 98.5 F 66 20 104/46 L 98 11/19/17 08:24 11/19/17 08:27 11/19/17 08:27 11/19/17 08:24 11/19/17 08:27 Intake & Output 11/18/17 11/19/17 11/20/17 06:59 06:59 06:59 Intake Total 360 488 Output Total 1850 1300 Balance -1490 -812 Weight 114.5 kg 116.4 kg General appearance: PRESENT: no acute distress, obese, well-developed, well- nourished, other - He is receiving oxygen via nasal cannula Head exam: PRESENT: atraumatic, normocephalic Mouth exam: PRESENT: moist, tongue midline Respiratory exam: PRESENT: other - He has some coarse rhonchi scattered throughout all lung raygoza. He somewhat diminished in the lower bases bilaterally Cardiovascular exam: PRESENT: RRR Pulses: PRESENT: normal dorsalis pedis pul GI/Abdominal exam: PRESENT: normal bowel sounds, soft, other - His abdomen is obese. I cannot assess for organomegaly due to the patient's body habitus. ABSENT: distended, guarding, mass, rebound, tenderness Rectal exam: PRESENT: deferred Extremities exam: PRESENT: other - Right lower extremity has a bandage in place. It was not removed as of the time of this dictation. He has edema that extends up into his thigh area. Left lower extremity is surgically absent Neurological exam: PRESENT: alert, awake, oriented to person, oriented to place , oriented to time, oriented to situation, CN II-XII grossly intact. ABSENT: motor sensory deficit Psychiatric exam: PRESENT: appropriate affect, normal mood. ABSENT: homicidal ideation, suicidal ideation Skin exam: PRESENT: dry, intact, warm. ABSENT: cyanosis, rash Results Laboratory Results: 11/19/17 05:40 11/19/17 05:40 11/19/17 11/19/17 11/19/17 05:40 05:40 05:40 WBC 8.3 RBC 3.25 L Hgb 10.0 L Hct 29.9 L MCV 92 MCH 30.8 MCHC 33.4 RDW 18.5 H Plt Count 76 L Seg Neutrophils % Not Reportable Lymphocytes % Not Reportable Monocytes % Not Reportable Eosinophils % Not Reportable Basophils % Not Reportable Absolute Neutrophils Not Reportable Absolute Lymphocytes Not Reportable Absolute Monocytes Not Reportable Absolute Eosinophils Not Reportable Absolute Basophils Not Reportable Sodium 140.6 Potassium 4.1 Chloride 99 Carbon Dioxide 32 H Anion Gap 10 BUN 71 H Creatinine 3.33 H Est GFR ( Amer) 22 L Est GFR (Non-Af Amer) 18 L Glucose 227 H Calcium 8.2 L Magnesium 2.3 Total Bilirubin 0.5 AST 54 ALT 60 Alkaline Phosphatase 81 Ammonia 24.0 Total Protein 4.7 L Albumin 2.6 L 11/12/17 11/14/17 23:18 14:21 Troponin I 0.045 NT-Pro-B Natriuret Pep 2810 H Impressions: Chest X-Ray 11/12/17 18:15 IMPRESSION: HEART ENLARGED WITHOUT FAILURE. NO OTHER SIGNIFICANT RADIOGRAPHIC FINDING IN THE CHEST. Assessment & Plan - Diagnosis (1) Acute on chronic respiratory failure with hypoxia and hypercapnia Is this a current diagnosis for this admission?: Yes Plan: Today the patient is off of his BiPAP. He seems to be quite comfortable on room air. Pulmonology and cardiology are following the patient. We will await further recommendations. (2) Acute on chronic renal failure Is this a current diagnosis for this admission?: Yes Plan: His baseline creatinine is 1.8. His creatinine significantly worsened today. His diuretics have been held at the advice of nephrology. I understand that they are considering a small fluid bolus but they will make that decision as the day goes on. Overall the patient looks quite well. We will check a chemistry panel in the morning. (3) Acute on chronic diastolic heart failure Is this a current diagnosis for this admission?: Yes Plan: His diuretics are being held due to his acute kidney injury. I will defer to nephrology on how to manage his volume status at this point. (4) TORRES (nonalcoholic steatohepatitis) Is this a current diagnosis for this admission?: Yes Plan: Liver panel and ammonia level was normal. No issues at this point. (5) Anemia Qualifiers: Other causes of anemia: chronic disease, other Is this a current diagnosis for this admission?: Yes Plan: Multifactorial secondary to chronic disease and iron deficiency. He has been given a dose of Feraheme. (6) COPD with acute exacerbation Is this a current diagnosis for this admission?: Yes Plan: He was started on p.o. prednisone yesterday with great improvement to his breathing. I will continue 60 mg again today. This could be slowly tapered as we go along. Dr. Dash saw him and put him on bronchodilators as well. (7) Chronic atrial fibrillation Is this a current diagnosis for this admission?: Yes Plan: Currently rate controlled (8) Chronic anticoagulation Is this a current diagnosis for this admission?: Yes Plan: Continue Coumadin (9) Chronic idiopathic thrombocytopenia Is this a current diagnosis for this admission?: Yes Plan: Stable. (10) Obesity (BMI 30.0-34.9) Is this a current diagnosis for this admission?: Yes Plan: Dietary discretion is advised (11) BPH (benign prostatic hyperplasia) Is this a current diagnosis for this admission?: Yes Plan: Continue Flomax (12) Hypokalemia Is this a current diagnosis for this admission?: Yes Plan: Repleted (13) Full code status Is this a current diagnosis for this admission?: Yes - Time Time Spent with patient: 15-24 minutes - Inpatient Certification Medical Necessity: Other - Inpatient hospitalization remains necessary. The patient is slowly improving. He has been off BiPAP for a few hours this morning and so far is doing good. He does have significant comorbidities making treatment outside the hospital at this time too risky. Hopefully if he stabilizes over the next couple of days we could consider discharging him early next week.
--- NOTE | 2017-11-19 15:11 | PDOC PROGRESS REPORT ---
Subjective Progress Note for:: 11/19/17 Subjective:: Patient looks to be doing much better today. No asterixis was seen. He says that he is not short of breath and seems to be more mentally alert than he has been for the past two days. He says that he is still making a good amount of urine. Currently his pain is controlled. He denies chest pain, fevers, or chills. Reason For Visit: COPD EXCAERBATION Physical Exam Vital Signs: Temp Pulse Resp BP Pulse Ox 98.5 F 70 18 107/43 L 96 11/19/17 12:23 11/19/17 14:13 11/19/17 14:13 11/19/17 12:23 11/19/17 14:13 Intake & Output 11/18/17 11/19/17 11/20/17 06:59 06:59 06:59 Intake Total 360 488 Output Total 1850 1300 Balance -1490 -812 Weight 114.5 kg 116.4 kg General appearance: PRESENT: no acute distress, morbidly obese, well-developed, well-nourished Mouth exam: PRESENT: moist, neck supple Neck exam: PRESENT: full ROM. ABSENT: JVD Respiratory exam: PRESENT: wheezes. ABSENT: accessory muscle use, clear to auscultation dipti Cardiovascular exam: PRESENT: irregular rhythm, +S1, +S2 GI/Abdominal exam: PRESENT: normal bowel sounds, soft. ABSENT: ascites, organomegaly, tenderness Extremities exam: PRESENT: tenderness. ABSENT: pedal edema Musculoskeletal exam: PRESENT: deformity - -BKA of left leg, tenderness. ABSENT : normal inspection Neurological exam: PRESENT: alert, awake, oriented to person, oriented to place , oriented to time, oriented to situation Psychiatric exam: PRESENT: appropriate affect, normal mood Skin exam: PRESENT: dry, intact, warm Results Laboratory Results: 11/19/17 05:40 11/19/17 05:40 11/19/17 11/19/17 11/19/17 05:40 05:40 05:40 WBC 8.3 RBC 3.25 L Hgb 10.0 L Hct 29.9 L MCV 92 MCH 30.8 MCHC 33.4 RDW 18.5 H Plt Count 76 L Seg Neutrophils % Not Reportable Lymphocytes % Not Reportable Monocytes % Not Reportable Eosinophils % Not Reportable Basophils % Not Reportable Absolute Neutrophils Not Reportable Absolute Lymphocytes Not Reportable Absolute Monocytes Not Reportable Absolute Eosinophils Not Reportable Absolute Basophils Not Reportable Sodium 140.6 Potassium 4.1 Chloride 99 Carbon Dioxide 32 H Anion Gap 10 BUN 71 H Creatinine 3.33 H Est GFR ( Amer) 22 L Est GFR (Non-Af Amer) 18 L Glucose 227 H Calcium 8.2 L Magnesium 2.3 Total Bilirubin 0.5 AST 54 ALT 60 Alkaline Phosphatase 81 Ammonia 24.0 Total Protein 4.7 L Albumin 2.6 L 11/12/17 11/14/17 23:18 14:21 Troponin I 0.045 NT-Pro-B Natriuret Pep 2810 H Impressions: Chest X-Ray 11/12/17 18:15 IMPRESSION: HEART ENLARGED WITHOUT FAILURE. NO OTHER SIGNIFICANT RADIOGRAPHIC FINDING IN THE CHEST. Assessment & Plan - Diagnosis (1) Acute on chronic systolic heart failure Is this a current diagnosis for this admission?: Yes Plan: Fluid looks to be completely removed, patient looks slightly over diuresed with decrease in BP and elevation in creatinine. Has no edema on his legs anymore. Holding lasixs (2) Anasarca Is this a current diagnosis for this admission?: Yes Plan: looks to have resolved, holding lasix (3) Acute kidney injury superimposed on CKD Is this a current diagnosis for this admission?: Yes Plan: creatinine looks to have elevated to 3.3. Will hold lasix and give a small 500mL one time IV bag of NS. (4) Chronic kidney disease, stage 3 Is this a current diagnosis for this admission?: Yes Plan: baseline is 1.8. (5) Anemia Qualifiers: Other causes of anemia: chronic disease, other Is this a current diagnosis for this admission?: Yes Plan: redrawing iron panel, if normal may need procrit. (6) Hypertension Qualifiers: Hypertension type: essential hypertension Qualified Code(s): I10 - Essential (primary) hypertension Is this a current diagnosis for this admission?: Yes Plan: giving fluid to bring it up, reducing metoprolol XL to 25mg qhs. Having it being held if bp is below 120 systolic. (7) Acute on chronic respiratory failure with hypoxia and hypercapnia Is this a current diagnosis for this admission?: Yes Plan: looks to be slightly improved clinically. Did not complain of SOB today. Currently being monitored by pulmonology. 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 Mcdonald.
--- NOTE | 2017-11-19 19:40 | PDOC PROGRESS REPORT ---
Subjective Progress Note for:: 11/18/17 Subjective:: Patient claims to be doing better. Asterixis has improved. Patient does better on continuous bilevel therapy. Pt is denying any chest arm or neck discomfort. Patient denied any sustained palpitations, dizziness, syncope, near syncope. Patient denying any fever chills. Patient denying any other significant discomfort. Patient is atrial paced rhythm. No sustained tachycardia or bradycardia arrhythmias noted. Review of systems: Rest review of systems negative. Medications: Medications have been reviewed. Reason For Visit: COPD EXCAERBATION Physical Exam Vital Signs: Temp Pulse Resp BP Pulse Ox 98.5 F 51 L 19 120/79 98 11/18/17 16:05 11/18/17 16:05 11/18/17 16:05 11/18/17 18:31 11/18/17 16:05 Intake & Output 11/17/17 11/18/17 11/19/17 06:59 06:59 06:59 Intake Total 704 360 488 Output Total 0 1850 850 Balance 704 -1490 -362 Weight 113.6 kg 114.5 kg Exam: GENERAL: well-nourished and mild respiratory distress. Alert and oriented x3 HEAD: Atraumatic, normocephalic. EYES: Pupils equal round and reactive to light, extraocular movements intact, sclera anicteric, conjunctiva are normal. ENT: TMs normal, nares patent, oropharynx clear without exudates. Moist mucous membranes. No oral ulcerations or bleeding gums noted NECK: supple without lymphadenopathy. Trachea is central. No cervical or axillary lymphadenopathy noted. Carotids are 2+, JVD 8-10 cm LUNGS: Respiration seems nonlabored, no significant accessory muscle action noted. Bilateral coarse crackles noted. Mild wheezes rales or rhonchi noted. No significant dullness noted on percussion. CHEST: Palpation of the chest wall shows no significant chest wall tenderness. No other significant abnormalities noted. 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 ABDOMEN: Soft, no significant tenderness appreciated, normoactive bowel sounds. No guarding, no rebound. No rigidity noted . No masses appreciated. EXTREMITIES: left below the knee amputation. The right leg has wound that is is covered up. At least 2+ edema noted of the right lower extremity with some superficial ulcerations. NEUROLOGICAL: Focused neurological exam showed no significant neurologic deficit. Normal speech, no focal weakness appreciated. PSYCH: Normal mood, normal affect. Judgment and insight within normal limits. SKIN: No significant ecchymosis, rash, signs of pruritus noted. Patient does have some ulcerations, which is superficial and covered with bandages. MUSCULOSKELETAL EXAM: No significant joint swelling noted. Results Laboratory Results: 11/16/17 05:19 11/18/17 07:00 11/17/17 11/18/17 11/18/17 04:59 05:00 07:00 Carbonic Acid 1.95 H HCO3/H2CO3 Ratio 19:1 ABG pH 7.40 ABG pCO2 64.8 H ABG pO2 74.9 L ABG HCO3 38.8 H ABG O2 Saturation 94.5 ABG Base Excess 11.1 FiO2 30% Sodium 143.0 Potassium 3.8 Chloride 100 Carbon Dioxide 36 H Anion Gap 7 BUN 64 H Creatinine 2.55 H Est GFR ( Amer) 30 L Est GFR (Non-Af Amer) 24 L Glucose 106 Calcium 8.0 L Transferrin 181 L Total Bilirubin 0.5 AST 23 ALT 33 Alkaline Phosphatase 78 Ammonia Total Protein 4.5 L Albumin 2.5 L 11/18/17 07:00 Carbonic Acid HCO3/H2CO3 Ratio ABG pH ABG pCO2 ABG pO2 ABG HCO3 ABG O2 Saturation ABG Base Excess FiO2 Sodium Potassium Chloride Carbon Dioxide Anion Gap BUN Creatinine Est GFR ( Amer) Est GFR (Non-Af Amer) Glucose Calcium Transferrin Total Bilirubin AST ALT Alkaline Phosphatase Ammonia 11.5 Total Protein Albumin 11/12/17 11/14/17 23:18 14:21 Troponin I 0.045 NT-Pro-B Natriuret Pep 2810 H Impressions: Chest X-Ray 11/12/17 18:15 IMPRESSION: HEART ENLARGED WITHOUT FAILURE. NO OTHER SIGNIFICANT RADIOGRAPHIC FINDING IN THE CHEST. Assessment & Plan - Diagnosis (1) CHF exacerbation Is this a current diagnosis for this admission?: Yes (2) COPD (chronic obstructive pulmonary disease) Qualifiers: COPD type: emphysema Emphysema type: unspecified Qualified Code(s): J43.9 - Emphysema, unspecified Is this a current diagnosis for this admission?: Yes (3) Coronary artery disease Qualifiers: Coronary Disease-Associated Artery/Lesion type: unspecified vessel or lesion type [place] vs. 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 Qualified Code(s): E11.8 - Type 2 diabetes mellitus with unspecified complications Is this a current diagnosis for this admission?: Yes (5) Hyperlipidemia Qualifiers: Hyperlipidemia type: unspecified Qualified Code(s): E78.5 - Hyperlipidemia , unspecified Is this a current diagnosis for this admission?: Yes (6) Hypertension Qualifiers: Hypertension type: essential hypertension Qualified Code(s): I10 - Essential (primary) hypertension Is this a current diagnosis for this admission?: Yes (7) PVD (peripheral vascular disease) Is this a current diagnosis for this admission?: Yes (8) History of implantable cardioverter-defibrillator (ICD) placement Is this a current diagnosis for this admission?: Yes - Notes Notes: Patient has shown some improvement from yesterday. Asterixis has significantly improved. He is more talkative today. CHF exacerbation: Continue with current regimen. Patient started on entresto therapy. Seems to be tolerating this well. Asterixis has improved. COPD: Agree with current management plans. Coronary artery disease: Currently symptomatically stable without any angina symptoms. Diabetes: Recommend good management of diabetes but avoid any hypo-or hyperglycemia. Chronic kidney disease: Significant stage IV. Patient being followed by hospital intern. Hypertension: Blood pressure goal should be 135/85 or less but could well be more liberal in this patient because of Multiple other comorbidities. PVD with wound infection: Recommend vascular surgery consultation, wound care consultation. History of ICD placement: Telemetry strips shows a paced rhythm. Patient again advised the need for him to go to [place] to have defibrillator battery change out on discharge from here. - Time Time with patient: Greater than 35 minutes - CODE STATUS was discussed, patient remains full code. Surrogate decision-maker unchanged. Multiple medical problems were addressed. More than 50% of the time spent coordinating care, discussing management plans with involved caregivers. Management plans discussed with involved personnels. Medical decision making was of moderate to high complexity, patient's has multiple comorbidities. Medications reviewed and adjusted accordingly: Yes
--- NOTE | 2017-11-19 19:42 | PDOC PROGRESS REPORT ---
Subjective Progress Note for:: 11/19/17 Subjective:: Patient claims to be doing better. Asterixis has improved. Currently resting in bed with some nasal cannula oxygen supplementation. Pt is denying any chest arm or neck discomfort. Patient denied any sustained palpitations, dizziness, syncope, near syncope. Patient denying any fever chills. Patient denying any other significant discomfort. Patient is atrial paced rhythm. No sustained tachycardia or bradycardia arrhythmias noted. Review of systems: Rest review of systems negative. Medications: Medications have been reviewed. Reason For Visit: COPD EXCAERBATION Physical Exam Vital Signs: Temp Pulse Resp BP Pulse Ox 98.4 F 61 20 87/46 L 96 11/19/17 15:56 11/19/17 15:56 11/19/17 15:56 11/19/17 15:56 11/19/17 15:56 Intake & Output 11/18/17 11/19/17 11/20/17 06:59 06:59 06:59 Intake Total 360 488 850 Output Total 1850 1300 950 Balance -1490 -812 -100 Weight 114.5 kg 116.4 kg Exam: GENERAL: well-nourished and mild respiratory distress. Alert and oriented x3 HEAD: Atraumatic, normocephalic. EYES: Pupils equal round and reactive to light, extraocular movements intact, sclera anicteric, conjunctiva are normal. ENT: TMs normal, nares patent, oropharynx clear without exudates. Moist mucous membranes. No oral ulcerations or bleeding gums noted NECK: supple without lymphadenopathy. Trachea is central. No cervical or axillary lymphadenopathy noted. Carotids are 2+, JVD 8 cm LUNGS: Respiration seems nonlabored, no significant accessory muscle action noted. Bilateral coarse crackles noted. Mild wheezes rales or rhonchi noted. No significant dullness noted on percussion. CHEST: Palpation of the chest wall shows no significant chest wall tenderness. No other significant abnormalities noted. 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 ABDOMEN: Soft, no significant tenderness appreciated, normoactive bowel sounds. No guarding, no rebound. No rigidity noted . No masses appreciated. EXTREMITIES: left below the knee amputation. The right leg has wound that is is covered up. At least 2+ edema noted of the right lower extremity with some superficial ulcerations. NEUROLOGICAL: Focused neurological exam showed no significant neurologic deficit. Normal speech, no focal weakness appreciated. PSYCH: Normal mood, normal affect. Judgment and insight within normal limits. SKIN: No significant ecchymosis, rash, signs of pruritus noted. Patient does have some ulcerations, which is superficial and covered with bandages. MUSCULOSKELETAL EXAM: No significant joint swelling noted. Results Laboratory Results: 11/19/17 05:40 11/19/17 05:40 11/19/17 11/19/17 11/19/17 05:40 05:40 05:40 WBC 8.3 RBC 3.25 L Hgb 10.0 L Hct 29.9 L MCV 92 MCH 30.8 MCHC 33.4 RDW 18.5 H Plt Count 76 L Seg Neutrophils % Not Reportable Lymphocytes % Not Reportable Monocytes % Not Reportable Eosinophils % Not Reportable Basophils % Not Reportable Absolute Neutrophils Not Reportable Absolute Lymphocytes Not Reportable Absolute Monocytes Not Reportable Absolute Eosinophils Not Reportable Absolute Basophils Not Reportable Sodium 140.6 Potassium 4.1 Chloride 99 Carbon Dioxide 32 H Anion Gap 10 BUN 71 H Creatinine 3.33 H Est GFR ( Amer) 22 L Est GFR (Non-Af Amer) 18 L Glucose 227 H Calcium 8.2 L Magnesium 2.3 Total Bilirubin 0.5 AST 54 ALT 60 Alkaline Phosphatase 81 Ammonia 24.0 Total Protein 4.7 L Albumin 2.6 L 11/12/17 11/14/17 23:18 14:21 Troponin I 0.045 NT-Pro-B Natriuret Pep 2810 H EKG Comments: Telemetry shows a paced rhythm no sustained tachycardia or bradycardia arrhythmias noted. Impressions: Chest X-Ray 11/12/17 18:15 IMPRESSION: HEART ENLARGED WITHOUT FAILURE. NO OTHER SIGNIFICANT RADIOGRAPHIC FINDING IN THE CHEST. Assessment & Plan - Diagnosis (1) CHF exacerbation Is this a current diagnosis for this admission?: Yes (2) COPD (chronic obstructive pulmonary disease) Qualifiers: COPD type: emphysema Emphysema type: unspecified Qualified Code(s): J43.9 - Emphysema, unspecified Is this a current diagnosis for this admission?: Yes (3) Coronary artery disease Qualifiers: Coronary Disease-Associated Artery/Lesion type: unspecified vessel or lesion type [place] vs. 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 insulin use: unspecified chcf insulin use status Qualified Code(s): E11.8 - Type 2 diabetes mellitus with unspecified complications Is this a current diagnosis for this admission?: Yes (5) Hyperlipidemia Qualifiers: Hyperlipidemia type: unspecified Qualified Code(s): E78.5 - Hyperlipidemia , unspecified Is this a current diagnosis for this admission?: Yes (6) Hypertension Qualifiers: Hypertension type: essential hypertension Qualified Code(s): I10 - Essential (primary) hypertension Is this a current diagnosis for this admission?: Yes (7) PVD (peripheral vascular disease) Is this a current diagnosis for this admission?: Yes (8) History of implantable cardioverter-defibrillator (ICD) placement Is this a current diagnosis for this admission?: Yes - Notes Notes: Patient has shown gradual improvement since day before yesterday. Today no longer noted to have asterixis. Ammonia level was normal. CHF exacerbation: Continue with current regimen. Continue with entresto therapy and other therapy. Seems to be tolerating this well. Asterixis has improved. COPD: Agree with current management plans. Patient has been seen by coater carbon paper and management has been optimized. Coronary artery disease: Currently symptomatically stable without any angina symptoms. Diabetes: Recommend good management of diabetes but avoid any hypo-or hyperglycemia. Chronic kidney disease: Significant stage IV. 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 Hypertension: Blood pressure goal should be 135/85 or less but could well be more liberal in this patient because of Multiple other comorbidities. PVD with wound infection: Recommend vascular surgery consultation, wound care consultation. History of ICD placement: Telemetry strips shows a paced rhythm. Patient again advised the need for him to go to [place] to have defibrillator battery change out on discharge from here.
[2017-11-19] MEDS: METOPROLOL SUCCINATE 25 MG TAB.SR.24H PO SCH (23:33)
[2017-11-19] MEDS: WARFARIN SODIUM 2 MG TABLET PO SCH (23:34)
[2017-11-19] MEDS: FINASTERIDE 5 MG TABLET PO SCH (23:34)
[2017-11-19] MEDS: TAMSULOSIN HCL 0.4 MG CAP.SR.24H PO SCH (23:35)
[2017-11-19] MEDS: ATORVASTATIN CALCIUM 40 MG TABLET PO SCH (23:35)
[2017-11-19] MEDS: MONTELUKAST SODIUM 10 MG TABLET PO SCH (23:36)
[2017-11-19] MEDS: INSULIN GLARGINE,HUM.REC.ANLOG 300 UNIT/3 ML INSULN.PEN SUBCUT SCH (23:37)
[2017-11-20] MEDS: SILVER SULFADIAZINE 1% CREAM 25 GM TP SCH (00:01)
[2017-11-20] MEDS: LEVALBUTEROL HCL NEB 1.25 MG/3 ML AMPUL NEB SCH ×4 (02:12→19:52)
[2017-11-20] MEDS: HYDROCODONE/ACETAMINOPHEN 10-325 MG TABLET PO PRN ×3 (03:40→16:45)
[2017-11-20 06:24] LABS: INTERNATIONAL RATION (INR) 3.51; PROTHROMBIN TIME 36.8 SEC (11.4-15.4)
[2017-11-20 06:41] LABS: ANION GAP 9 (5-19); BLOOD UREA NITROGEN 68 mg/dL (7-20); CALCIUM 8.4 mg/dL (8.4-10.2); CARBON DIOXIDE 29 mmol/L (22-30); CHLORIDE 97 mmol/L (98-107); GLUCOSE 341 mg/dL (75-110); IRON(TIBC) 314.8 ug/dL (49-181); POTASSIUM 3.9 mmol/L (3.6-5.0); SODIUM 135.4 mmol/L (137-145)
[2017-11-20] MEDS: INSULIN REG, HUMAN 100 UNIT/ML 3 ML VIAL (PYX) SUBCUT PRN ×2 (06:43→13:09)
[2017-11-20] MEDS: LANSOPRAZOLE 30 MG TAB.RAP.DR PO SCH (06:43)
[2017-11-20 06:45] LABS: HEMATOCRIT 29.6 % (37.9-51.0); HEMOGLOBIN 9.8 g/dL (13.5-17.0); MEAN CORPUSCULAR HEMOGLOBIN 30.8 pg (27.0-33.4); MEAN CORPUSCULAR HGB CONC 33.2 g/dL (32.0-36.0); MEAN CORPUSCULAR VOLUME 93 fl (80-97); RED BLOOD COUNT 3.19 10^6/uL (4.35-5.55); RED CELL DISTRIBUTION WIDTH 17.8 % (11.5-14.0); WHITE BLOOD COUNT 8.5 10^3/uL (4.0-10.5)
[2017-11-20 07:34] LABS: PLATELET COUNT 88 10^3/uL (150-450)
[2017-11-20 07:37] LABS: ABSOLUTE LYMPHOCYTES# (MANUAL) 0.4 10^3/uL (0.5-4.7); ABSOLUTE MONOCYTES # (MANUAL) 0.9 10^3/uL (0.1-1.4); ABSOLUTE NEUTROPHILS# (MANUAL) 7.2 10^3/uL (1.7-8.2); BASOPHILS % (MANUAL) 0 % (0-2); EOSINOPHILS % (MANUAL) 0 % (0-6); LYMPHOCYTES % (MANUAL) 5 % (13-45); MONOCYTES % (MANUAL) 10 % (3-13); SEGMENTED NEUTROPHILS % (MAN) 85 % (42-78); TOTAL CELLS COUNTED 100
[2017-11-20 07:38] LABS: ANISOCYTOSIS 1+
[2017-11-20 07:39] LABS: POLYCHROMASIA SLIGHT
[2017-11-20 07:40] LABS: PLATELET COMMENT DECREASED
[2017-11-20] MEDS: BUDESONIDE NEB 0.5 MG/2 ML AMPUL NEB SCH ×2 (08:37→19:52)
[2017-11-20] MEDS: SACUBITRIL/VALSARTAN 24 MG/26 MG TABLET PO SCH (10:01)
[2017-11-20] MEDS: POTASSIUM CHLORIDE 10 MEQ TABLET.SA PO SCH (10:02)
[2017-11-20] MEDS: PREGABALIN 75 MG CAPSULE PO SCH (10:02)
[2017-11-20] MEDS: RANOLAZINE 500 MG TAB.SR.12H PO SCH (10:02)
[2017-11-20] MEDS: ALLOPURINOL 300 MG TABLET PO SCH (10:02)
[2017-11-20] MEDS: PREDNISONE 20 MG TABLET PO SCH (10:03)
[2017-11-20] MEDS: DRONEDARONE HYDROCHLORIDE 400 MG TABLET PO SCH (10:03)
[2017-11-20] MEDS: CHOLECALCIFEROL (D3) 400 UNIT TABLET PO SCH (10:03)
[2017-11-20] MEDS: ASPIRIN 81 MG TABLET, ENT COATED PO SCH (10:03)
[2017-11-20] MEDS: ROFLUMILAST 500 MCG TABLET PO SCH (10:03)
[2017-11-20] MEDS: METOLAZONE 5 MG TABLET PO SCH (10:04)
[2017-11-20] MEDS: NITROGLYCERIN 2.5 MG (0.1 MG/HR) PATCH.TD24 TD SCH (10:05)
[2017-11-20] MEDS: SENNOSIDES/DOCUSATE 8.6-50 MG 1 EACH TABLET PO SCH ×2 (10:05→17:46)
[2017-11-20] MEDS: OSELTAMIVIR PHOSPHATE 75 MG CAPSULE PO SCH (10:05)
[2017-11-20] MEDS: BUDESONIDE/FORMOTEROL 160-4.5 MCG 60 PUFF/6 GM MDI IH SCH (10:08)
[2017-11-20] MEDS: ISOSORBIDE MONONITRATE 30 MG TAB.ER.24H PO SCH (10:08)
[2017-11-20] MEDS: MULTIVITAMIN TABLET PO SCH (10:08)
[2017-11-20] MEDS: MAGNESIUM OXIDE 400 MG TABLET PO SCH ×2 (10:08→17:46)
[2017-11-20] MEDS ORDERED: LACTULOSE SYRUP 20 GM/30 ML UDCUP PO PRN (11:26)
--- NOTE | 2017-11-20 14:38 | PDOC PROGRESS REPORT ---
Subjective Progress Note for:: 11/20/17 Subjective:: Patient is seen on rounds. He is sitting on the side of the bed. He states he just took his BIPAP mask off because he needs to go to the bathroom. He he looks improved from 2 days ago. States he is breathing better.. He denies any chest pain. He continues to have edema and chronic venous congestion in the right lower extremities this is improved. They are improved from the last time I saw him, but still significantly swollen. He denies any nausea, vomiting or abdominal pain. Remaining review of system are negative Reason For Visit: COPD EXCAERBATION Physical Exam Vital Signs: Temp Pulse Resp BP Pulse Ox 97.5 F 61 18 104/53 L 96 11/20/17 07:50 11/20/17 13:55 11/20/17 13:55 11/20/17 07:50 11/20/17 13:55 Intake & Output 11/19/17 11/20/17 11/21/17 06:59 06:59 06:59 Intake Total 488 2191 237 Output Total 1300 1600 600 Balance -812 591 -363 Weight 116.4 kg 118.8 kg General appearance: PRESENT: no acute distress, obese, well-developed, well- nourished, other - Chronically ill Head exam: PRESENT: atraumatic, normocephalic Eye exam: PRESENT: conjunctiva pink, EOMI, PERRLA. ABSENT: scleral icterus Ear exam: PRESENT: normal external ear exam Mouth exam: PRESENT: moist, neck supple, tongue midline Neck exam: PRESENT: carotid bruit, full ROM Respiratory exam: PRESENT: crackles, rhonchi - Bilasilar crackles. Left upper lobe rhonchi, symmetrical, unlabored Cardiovascular exam: PRESENT: RRR. ABSENT: diastolic murmur, rubs, systolic murmur Pulses: PRESENT: normal carotid pulses, normal radial pulses GI/Abdominal exam: PRESENT: firm, hypoactive bowel sounds, soft Rectal exam: PRESENT: deferred Extremities exam: PRESENT: calf tenderness, pedal edema, +1 edema - Lower leg. Left AKA, other Neurological exam: PRESENT: alert, awake, oriented to person, oriented to place , oriented to time, oriented to situation, CN II-XII grossly intact. ABSENT: motor sensory deficit Psychiatric exam: PRESENT: anxious Skin exam: PRESENT: abrasion, skin tears - Chronic venous stasis color changes of the right lower extremity, warm, other Results Laboratory Results: 11/20/17 05:25 11/20/17 05:25 11/20/17 11/20/17 05:25 05:25 WBC 8.5 RBC 3.19 L Hgb 9.8 L Hct 29.6 L MCV 93 MCH 30.8 MCHC 33.2 RDW 17.8 H Plt Count 88 L Seg Neutrophils % Not Reportable Lymphocytes % Not Reportable Monocytes % Not Reportable Eosinophils % Not Reportable Basophils % Not Reportable Absolute Neutrophils Not Reportable Absolute Lymphocytes Not Reportable Absolute Monocytes Not Reportable Absolute Eosinophils Not Reportable Absolute Basophils Not Reportable Sodium 135.4 L Potassium 3.9 Chloride 97 L Carbon Dioxide 29 Anion Gap 9 BUN 68 H Creatinine 3.09 H Est GFR ( Amer) 24 L Est GFR (Non-Af Amer) 20 L Glucose 341 H Calcium 8.4 Magnesium 2.1 Iron 314.8 H TIBC 260 % Saturation 121 Ferritin 214.00 11/12/17 11/14/17 23:18 14:21 Troponin I 0.045 NT-Pro-B Natriuret Pep 2810 H Impressions: Chest X-Ray 11/12/17 18:15 IMPRESSION: HEART ENLARGED WITHOUT FAILURE. NO OTHER SIGNIFICANT RADIOGRAPHIC FINDING IN THE CHEST. Assessment & Plan - Diagnosis (1) Acute on chronic respiratory failure with hypoxia and hypercapnia Is this a current diagnosis for this admission?: Yes Plan: Patient continues to need BIPAP most of the time. He is improved. He can go home in the next day or 2 , home health diligent follow-up he is has end stage heart failure in combination with COPD. He is not realistic regarding his current diagnosis or prognosis. He continues to want to be a full code (2) Acute kidney injury superimposed on CKD Is this a current diagnosis for this admission?: Yes Plan: Nephrology is following . Diuresis has been cut back (3) Acute on chronic diastolic heart failure Is this a current diagnosis for this admission?: Yes Plan: He appears improved but still has edema of right lower leg (4) Anemia Qualifiers: Other causes of anemia: chronic disease, other Is this a current diagnosis for this admission?: Yes Plan: Stable (5) CAD (coronary artery disease) Qualifiers: Coronary Disease-Associated Artery/Lesion type: unspecified vessel or lesion type [place] vs. transplanted heart: [place] heart Associated angina: angina presence unspecified Qualified Code(s): I25.10 - Atherosclerotic heart disease of [place] coronary artery without angina pectoris Plan: Continue current medications. Cardiology is following (7) Chronic anticoagulation Is this a current diagnosis for this admission?: Yes (8) Chronic atrial fibrillation Is this a current diagnosis for this admission?: Yes Plan: Rate controlled (9) Constipation Qualifiers: Constipation type: chronic idiopathic constipation Qualified Code(s): K59.04 - Chronic idiopathic constipation Is this a current diagnosis for this admission?: Yes Plan: We will add lactulose every 8 as needed (10) Chronic diastolic heart failure Is this a current diagnosis for this admission?: Yes Plan: We will resume his Bumex this afternoon (11) Chronic idiopathic thrombocytopenia Is this a current diagnosis for this admission?: Yes Plan: Stable (12) Obesity (BMI 30.0-34.9) Is this a current diagnosis for this admission?: Yes (13) BPH (benign prostatic hyperplasia) Is this a current diagnosis for this admission?: Yes Plan: Continue Flomax - Time Time Spent with patient: 25-34 minutes Medications reviewed and adjusted accordingly: Yes Anticipated discharge: Home with Homehealth Within: within 48 hours
[2017-11-20] MEDS ORDERED: INSULIN REG, HUMAN 100 UNIT/ML 3 ML VIAL (PYX) SUBCUT ONE (18:00)
[2017-11-20] MEDS: OXYCODONE-ACETAMINOPHEN 5-325 MG TABLET PO PRN (23:01)
[2017-11-21] MEDS: ATORVASTATIN CALCIUM 40 MG TABLET PO SCH ×2 (00:37→23:49)
[2017-11-21] MEDS: OSELTAMIVIR PHOSPHATE 75 MG CAPSULE PO SCH ×3 (00:37→23:49)
[2017-11-21] MEDS: PREGABALIN 75 MG CAPSULE PO SCH ×3 (00:38→23:48)
[2017-11-21] MEDS: MONTELUKAST SODIUM 10 MG TABLET PO SCH ×2 (00:38→23:50)
[2017-11-21] MEDS: DRONEDARONE HYDROCHLORIDE 400 MG TABLET PO SCH ×3 (00:38→23:49)
[2017-11-21] MEDS: RANOLAZINE 500 MG TAB.SR.12H PO SCH ×3 (00:38→23:48)
[2017-11-21] MEDS: BUDESONIDE/FORMOTEROL 160-4.5 MCG 60 PUFF/6 GM MDI IH SCH ×3 (00:39→23:48)
[2017-11-21] MEDS: INSULIN GLARGINE,HUM.REC.ANLOG 300 UNIT/3 ML INSULN.PEN SUBCUT SCH ×2 (00:39→23:51)
[2017-11-21] MEDS: INSULIN REG, HUMAN 100 UNIT/ML 3 ML VIAL (PYX) SUBCUT PRN ×5 (00:39→23:51)
[2017-11-21] MEDS: BUMETANIDE INJ/PF 1 MG/4 ML SDV IV SCH ×3 (00:39→23:48)
[2017-11-21] MEDS: METOPROLOL SUCCINATE 25 MG TAB.SR.24H PO SCH ×2 (00:39→23:50)
[2017-11-21] MEDS: SACUBITRIL/VALSARTAN 24 MG/26 MG TABLET PO SCH ×3 (00:43→23:50)
[2017-11-21] MEDS: WARFARIN SODIUM 2 MG TABLET PO SCH (00:52)
[2017-11-21] MEDS: TAMSULOSIN HCL 0.4 MG CAP.SR.24H PO SCH ×2 (00:53→23:49)
[2017-11-21] MEDS: FINASTERIDE 5 MG TABLET PO SCH ×2 (00:53→23:49)
[2017-11-21] MEDS: SILVER SULFADIAZINE 1% CREAM 25 GM TP SCH (00:54)
[2017-11-21] MEDS: LEVALBUTEROL HCL NEB 1.25 MG/3 ML AMPUL NEB SCH ×4 (01:57→20:14)
[2017-11-21] MEDS: LANSOPRAZOLE 30 MG TAB.RAP.DR PO SCH (05:24)
[2017-11-21] MEDS: OXYCODONE-ACETAMINOPHEN 5-325 MG TABLET PO PRN ×3 (05:24→17:24)
[2017-11-21 05:27] LABS: INTERNATIONAL RATION (INR) 4.27; PROTHROMBIN TIME 42.8 SEC (11.4-15.4)
[2017-11-21 05:32] LABS: ABSOLUTE LYMPHOCYTES (AUTO) 0.6 10^3/uL (0.5-4.7); ABSOLUTE NEUT (AUTO) 8.2 10^3/uL (1.7-8.2); BASOPHILS % (AUTO) 0.1 % (0-2); HEMATOCRIT 30.3 % (37.9-51.0); HEMOGLOBIN 10.2 g/dL (13.5-17.0); LYMPHOCYTES % (AUTO) 6.5 % (13-45); MEAN CORPUSCULAR HGB CONC 33.7 g/dL (32.0-36.0); MEAN CORPUSCULAR VOLUME 92 fl (80-97); PLATELET COUNT 91 10^3/uL (150-450); SEGMENTED NEUTROPHILS % (AUTO) 83.4 % (42-78); TOTAL CELLS COUNTED % (AUTO) 100 %; WHITE BLOOD COUNT 9.8 10^3/uL (4.0-10.5)
[2017-11-21 05:53] LABS: ANION GAP 7 (5-19); BLOOD UREA NITROGEN 78 mg/dL (7-20); CALCIUM 8.5 mg/dL (8.4-10.2); CARBON DIOXIDE 32 mmol/L (22-30); CHLORIDE 99 mmol/L (98-107); GLUCOSE 166 mg/dL (75-110); POTASSIUM 3.9 mmol/L (3.6-5.0); SODIUM 138.1 mmol/L (137-145)
[2017-11-21] MEDS: BUDESONIDE NEB 0.5 MG/2 ML AMPUL NEB SCH ×2 (07:59→20:14)
[2017-11-21] MEDS: MULTIVITAMIN TABLET PO SCH (09:09)
[2017-11-21] MEDS: CHOLECALCIFEROL (D3) 400 UNIT TABLET PO SCH (09:09)
[2017-11-21] MEDS: ISOSORBIDE MONONITRATE 30 MG TAB.ER.24H PO SCH (09:10)
[2017-11-21] MEDS: PREDNISONE 20 MG TABLET PO SCH (09:10)
[2017-11-21] MEDS: SENNOSIDES/DOCUSATE 8.6-50 MG 1 EACH TABLET PO SCH ×2 (09:11→17:24)
[2017-11-21] MEDS: METOLAZONE 5 MG TABLET PO SCH (09:11)
[2017-11-21] MEDS: POTASSIUM CHLORIDE 10 MEQ TABLET.SA PO SCH (09:12)
[2017-11-21] MEDS: MAGNESIUM OXIDE 400 MG TABLET PO SCH ×2 (09:12→17:24)
[2017-11-21] MEDS: ALLOPURINOL 300 MG TABLET PO SCH (09:12)
[2017-11-21] MEDS: ROFLUMILAST 500 MCG TABLET PO SCH (09:12)
[2017-11-21] MEDS: ASPIRIN 81 MG TABLET, ENT COATED PO SCH (09:12)
[2017-11-21] MEDS: NITROGLYCERIN 2.5 MG (0.1 MG/HR) PATCH.TD24 TD SCH (09:13)
--- NOTE | 2017-11-21 14:19 | PDOC TRANSFER SUMMARY ---
General Admission Date/PCP: 11/12/17 21:53 RUY CARTWRIGHT MD Admission Date: 11/12/17 Transfer Date: 11/21/17 Accepting Facility: [facility] Resuscitation Status: Full Code - Transfer Diagnosis (1) History of implantable cardioverter-defibrillator (ICD) placement Is this a current diagnosis for this admission?: Yes (2) Acute on chronic diastolic heart failure Is this a current diagnosis for this admission?: Yes (3) Acute and chronic respiratory failure Is this a current diagnosis for this admission?: Yes (4) PVD (peripheral vascular disease) Is this a current diagnosis for this admission?: Yes (5) CKD (chronic kidney disease), stage IV Is this a current diagnosis for this admission?: Yes - Transfer Medications Home Medications: Albuterol Sulfate [Ventolin HFA MDI 18 GM] 1 puff IH Q6HP PRN 11/13/17 Allopurinol [Zyloprim 300 mg Tablet] 150 mg PO DAILY 11/13/17 Aspirin [Ecotrin 81 mg EC Tablet] 81 mg PO DAILY 11/13/17 Atorvastatin Calcium [Lipitor 40 mg Tablet] 40 mg PO QHS 11/13/17 Budesonide/Formoterol Fumarate [Symbicort 160-4.5 Mcg Inhaler] 2 puff IH Q12 07/21 Bumetanide [Bumex 2 mg Tablet] 2 mg PO DAILY 11/13/17 Cholecalciferol (Vitamin D3) [Vitamin D3 400 Unit Tablet] 400 unit PO DAILY 07/21 Dronedarone Hydrochloride [Multaq 400 mg Tablet] 400 mg PO Q12 11/13/17 Finasteride [Proscar 5 mg Tablet] 5 mg PO QHS 11/13/17 Hydralazine HCl [Apresoline 25 mg Tablet] 25 mg PO Q12 11/13/17 Hydrocodone/Acetaminophen [Hydrocodone-Acetamin 10-325 mg] 1 tab PO Q6HP PRN 07/21 Insulin Glargine,Hum.rec.anlog [Lantus Solostar] 20 unit SQ QHS 11/13/17 Isosorbide Mononitrate [Imdur 30 mg Tablet.er] 90 mg PO DAILY 11/13/17 Magnesium Oxide [Mag-Ox 400 mg Tablet] 400 mg PO BID 11/13/17 Metoprolol Succinate [Toprol Xl 50 mg Tab.sr] 50 mg PO DAILY 11/13/17 Montelukast Sodium [Singulair 10 mg Tablet] 10 mg PO QHS 11/13/17 Multivitamin [Tab-A-Maris (Multiple Vitamin) Tablet] 1 tab PO DAILY 11/13/17 Omeprazole 20 mg PO DAILY 11/13/17 Polyethylene Glycol 3350 [Miralax Powder 17 gm/Packet] 17 gm PO QPMP PRN Pregabalin [Lyrica] 150 mg PO Q12 11/13/17 Ranolazine [Ranexa 500 mg Tab.sr] 1,000 mg PO Q12 11/13/17 Sennosides/Docusate 8.6-50 mg [Senna Plus Tablet] 1 tab PO BID 11/13/17 Tamsulosin HCl [Flomax 0.4 mg Cap.sr] 0.8 mg PO QHS 11/13/17 Terazosin HCl 1 mg PO DAILY 11/13/17 Tiotropium [place] [Spiriva Handihaler 5 Cap/Kit (18 Mcg/Cap)] 1 puff IH DAILY 11/13/17 Warfarin Sodium [Coumadin 2 mg Tablet] 2 mg PO QHS 11/13/17 Zolpidem Tartrate [Ambien 5 mg Tablet] 5 mg PO HSP PRN 11/13/17 Transfer Medications: Current Medications Allopurinol (Zyloprim 300 Mg Tablet) 150 mg PO DAILY [facility] Stop: 12/13/17 09:59 Last Admin: 11/21/17 09:12 Dose: 150 mg Aspirin (Ecotrin 81 Mg Ec Tablet) 81 mg PO DAILY [facility] Stop: 12/13/17 09:59 Last Admin: 11/21/17 09:12 Dose: 81 mg Atorvastatin Calcium (Lipitor 40 Mg Tablet) 40 mg PO QHS [facility] Stop: 12/12/17 21:59 Last Admin: 11/21/17 00:37 Dose: 40 mg Budesonide (Pulmicort Neb 0.5 Mg/2 Ml Ampul) 0.5 mg NEB RTQ12 [facility] Stop: 12/17/17 19:59 Last Admin: 11/21/17 07:59 Dose: 0.5 mg Budesonide/Formoterol Fumarate (Symbicort Hfa 160-4.5 Mcg Inhaler 6 Gm) 2 puff IH Q12 [facility] Stop: 12/13/17 09:59 Last Admin: 11/21/17 09:09 Dose: 2 puff Bumetanide (Bumex Inj/Pf 1 Mg/4 Ml Sdv) 1 mg IV Q12 [facility] Stop: 12/13/17 09:59 Last Admin: 11/21/17 09:11 Dose: 1 mg Cholecalciferol (Vitamin D3 400 Unit Tablet) 400 unit PO DAILY [facility] Stop: 12/13/17 09:59 Last Admin: 11/21/17 09:09 Dose: 400 unit Dextrose (Dextrose Inj 50% Syringe (25 Gm/50 Ml)) 12.5 gm IV PRN PRN; Protocol PRN Reason: FOR BG 50-69 IN ALERT PATIENT Stop: 12/13/17 17:30 Dextrose (Dextrose Inj 50% Syringe (25 Gm/50 Ml)) 25 gm IV PRN PRN; Protocol PRN Reason: PER PROTOCOL Stop: 12/13/17 17:30 Dronedarone (Multaq 400 Mg Tablet) 400 mg PO Q12 [facility] Stop: 12/12/17 21:59 Last Admin: 11/21/17 09:10 Dose: 400 mg Finasteride (Proscar 5 Mg Tablet) 5 mg PO QHS [facility] Stop: 12/12/17 21:59 Last Admin: 11/21/17 00:53 Dose: 5 mg Glucagon (Glucagen Inj 1 Mg Vial) 1 mg IM PRN PRN; Protocol PRN Reason: Evaluate for BG < 70 Stop: 12/13/17 17:30 Glucose (Glutose 40% Gel 15 Gm Tube) 15 gm PO PRN PRN; Protocol PRN Reason: FOR BG 50-69 IN ALERT PATIENT Stop: 12/13/17 17:30 Glucose (Glutose 40% Gel 15 Gm Tube) 30 gm PO PRN PRN; Protocol PRN Reason: FOR BG < 50 IN ALERT PATIENT Stop: 12/13/17 17:30 Insulin Glargine (Lantus Insulin Inj 300 Unit/3 Ml Pen) 20 unit SUBCUT QHS [facility] Stop: 12/12/17 21:59 Last Admin: 11/21/17 00:39 Dose: 20 unit Insulin Human Regular (Humulin R (Pyxis) Insulin 100 Unit/Ml 3ml) 0 - 12 unit SUBCUT ACP PRN; Protocol PRN Reason: PER PROTOCOL Stop: 12/13/17 17:30 Last Admin: 11/21/17 13:54 Dose: 4 unit Isosorbide Mononitrate (Imdur 30 Mg Tablet.Er) 90 mg PO DAILY [facility] Stop: 12/13/17 09:59 Last Admin: 11/21/17 09:10 Dose: 90 mg Lactulose (Cephulac Syrup 20 Gm/30 Ml Udcup) 20 gm PO Q8HP PRN PRN Reason: UNRESOLVED CONSTIPATION Stop: 12/20/17 11:25 Lansoprazole (Prevacid 30 Mg Odt Tablet) 30 mg PO Q6AM [facility] Stop: 12/13/17 05:59 Last Admin: 11/21/17 05:24 Dose: 30 mg Levalbuterol HCl (Xopenex Neb 1.25 Mg/3 Ml Ampul) 1.25 mg NEB RTQ6 [facility] Stop: 12/17/17 13:59 Last Admin: 11/21/17 13:56 Dose: 1.25 mg Magnesium Hydroxide (Milk Of Magnesia 30 Ml Udcup) 30 ml PO HSP PRN Stop: 12/12/17 22:07 Magnesium Oxide (Mag-Ox 400 Mg Tablet) 400 mg PO BID [facility] Stop: 12/13/17 09:59 Last Admin: 11/21/17 09:12 Dose: 400 mg Metolazone (Zaroxolyn 5 Mg Tablet) 5 mg PO DAILY [facility] Stop: 12/13/17 09:59 Last Admin: 11/21/17 09:11 Dose: 5 mg Metoprolol Succinate (Toprol Xl 25 Mg Tab.Sr) 25 mg PO QHS [facility] Stop: 12/19/17 21:59 Last Admin: 11/21/17 00:39 Dose: 25 mg Montelukast Sodium (Singulair 10 Mg Tablet) 10 mg PO QHS [facility] Stop: 12/13/17 21:59 Last Admin: 11/21/17 00:38 Dose: 10 mg Multivitamins (Tab-A-Maris (Multiple Vitamin) Tablet) 1 tab PO DAILY [facility] Stop: 12/13/17 09:59 Last Admin: 11/21/17 09:09 Dose: 1 tab Nitroglycerin (Nitro-Dur 2.5 Mg (0.1 Mg/Hr) Transdermal Ptch) 1 each TD DAILY [facility] Stop: 12/13/17 09:59 Last Admin: 11/21/17 09:13 Dose: 1 each Oseltamivir Phosphate (Tamiflu 75 Mg Capsule) 75 mg PO Q12 [facility] Stop: 11/22/17 21:59 Last Admin: 11/21/17 09:11 Dose: 75 mg Oxycodone/Acetaminophen (Percocet 5-325 Mg Tablet) 1 tab PO Q4HP PRN Stop: 11/27/17 17:02 Last Admin: 11/21/17 11:23 Dose: 1 tab Polyethylene Glycol (Miralax Powder 17 Gm/Packet) 17 gm PO QPMP PRN PRN Reason: FOR CONSTIPATION Stop: 12/12/17 22:07 Potassium Chloride (Klor-Con 10 Meq Tablet.Sa) 20 meq PO DAILY [facility] Stop: 12/17/17 09:59 Last Admin: 11/21/17 09:12 Dose: 20 meq Prednisone (Deltasone 20 Mg Tablet) 60 mg PO DAILY [facility] Stop: 12/19/17 09:59 Last Admin: 11/21/17 09:10 Dose: 60 mg Pregabalin (Lyrica 75 Mg Capsule) 150 mg PO Q12 [facility] Stop: 12/12/17 21:59 Last Admin: 11/21/17 09:09 Dose: 150 mg Ranolazine (Ranexa 500 Mg Tab.Sr) 1,000 mg PO Q12 [facility] Stop: 12/12/17 21:59 Last Admin: 11/21/17 09:10 Dose: 1,000 mg Roflumilast (Daliresp 500 Mcg Tablet) 500 mcg PO DAILY [facility] Stop: 12/18/17 09:59 Last Admin: 11/21/17 09:12 Dose: 500 mcg Sacubitril/Valsartan (Entresto 24 Mg/26 Mg Tablet) 1 tab PO Q12 [facility] Stop: 12/16/17 21:59 Last Admin: 11/21/17 09:10 Dose: 1 tab Senna/Docusate Sodium (Senna Plus Tablet) 1 each PO BID [facility] Stop: 12/13/17 09:59 Last Admin: 11/21/17 09:11 Dose: 1 each Silver Sulfadiazine (Silvadene 1% Cream 25 Gm) 1 applic TP QHS [facility] Stop: 12/14/17 14:59 Last Admin: 11/21/17 00:54 Dose: 1 applic Sodium Chloride (Saline Flush 2.5 Ml Monoject Prefil Syrin) 2.5 ml IV Q8 [facility] Stop: 12/12/17 21:59 Last Admin: 11/21/17 13:55 Dose: 2.5 ml Tamsulosin HCl (Flomax 0.4 Mg Cap.Sr) 0.8 mg PO QHS [facility] Stop: 12/12/17 21:59 Last Admin: 11/21/17 00:53 Dose: 0.8 mg Warfarin Sodium (Coumadin 2 Mg Tablet) 2 mg PO QHS [facility] Stop: 12/13/17 21:59 Last Admin: 11/21/17 00:52 Dose: 2 mg - Allergies Allergies/Adverse Reactions: Penicillins Allergy (Unknown, Verified 05/17/17 10:40) vancomycin [Vancomycin] Adverse Reaction (Verified 08/24/16 13:13) - Diet/Activity Discharge Diet: Cardiac, Diabetic Hospital Course Hospital Course: TRUONG PINK is a 77 year old male with a history of atrial fibrillation on Multaq and Coumadin, and AICD with pacemaker, peripheral vascular disease, ischemic heart disease post coronary artery bypass graft, congestive heart failure with a EF of 30-35% and moderate diastolic failure with pulmonary hypertension, obstructive sleep apnea, diabetes and stage III renal failure, posttraumatic splenectomy and Metzger with ascites presenting with increased swelling and shortness of breath. Patient is status post left BKA on the day of admission he had large blisters on the right lower extremities that were oozing The right lower extremity was extremely swollen He became extremely dyspneic He was placed on BiPAP support in the ED after receiving 60 mg of IV Lasix He was subsequently admitted on the hospitalist service for further evaluation and care (1) Acute on chronic respiratory failure with hypoxia and hypercapnia Secondary to acute on chronic systolic and diastolic CHF; COPD exacerbation Patient was initially on BiPAP Is now extremely comfortable just on nasal O2 (2) Acute kidney injury superimposed on CKD Is this a current diagnosis for this admission?: Yes Plan: Patient's creatinine was 2 on admission It is now 3.2 (3) Acute on chronic diastolic heart failure Is this a current diagnosis for this admission?: Yes Plan: Has improved Diuretics have been decreased (4) Anemia Qualifiers: Other causes of anemia: chronic disease, other Is this a current diagnosis for this admission?: Yes Plan: Anemia of chronic disease with normal iron folate and vitamin B12 (5) CAD (coronary artery disease) Qualifiers: Coronary Disease-Associated Artery/Lesion type: unspecified vessel or lesion type [place] vs. transplanted heart: [place] heart Associated angina: angina presence unspecified Qualified Code(s): I25.10 - Atherosclerotic heart disease of [place] coronary artery without angina pectoris Plan: Prior medications were continued Patient had no evidence of an acute coronary syndrome Troponins were in the intermediate range (6) Chronic anticoagulation Is this a current diagnosis for this admission?: Yes patient is chronically anticoagulated on Coumadin INR is over 4 today Coumadin is on hold (7) Chronic atrial fibrillation Is this a current diagnosis for this admission?: Yes Plan: Rate controlled continue Multaq (8) Chronic idiopathic thrombocytopenia Is this a current diagnosis for this admission?: Yes Plan: Stable with platelet count 80-90 (9) peripheral vascular disease Arterial Doppler was performed right lower extremity showing 50-99% stenosis of the femoral artery Ankle-Brachial index is 0.7 <1.3 Stenosis in the right lower extremity is not significant (10) status post AICD Battery needs to be changed (11) tense blisters RTLE Improved no evidence of cellulitis Physical Exam Vital Signs: Temp Pulse Resp BP Pulse Ox 98.1 F 63 18 118/49 L 96 11/21/17 12:14 11/21/17 13:59 11/21/17 13:59 11/21/17 12:14 11/21/17 13:59 Intake & Output 11/20/17 11/21/17 11/22/17 00:59 00:59 00:59 Intake Total 1441 1243 855 Output Total 1750 1050 2100 Balance -309 193 -1245 Weight 116.4 kg 118.8 kg 118.8 kg General appearance: PRESENT: no acute distress, obese, well-developed, well- nourished, other - Chronically ill Head exam: PRESENT: atraumatic, normocephalic Eye exam: PRESENT: conjunctiva pink, EOMI, PERRLA. ABSENT: scleral icterus Ear exam: PRESENT: normal external ear exam Mouth exam: PRESENT: moist, neck supple, tongue midline Neck exam: PRESENT: carotid bruit, full ROM Respiratory exam: PRESENT: crackles, rhonchi - Bilasilar crackles. Left upper lobe rhonchi, symmetrical, unlabored Cardiovascular exam: PRESENT: RRR. ABSENT: diastolic murmur, rubs, systolic murmur Pulses: PRESENT: normal carotid pulses, normal radial pulses GI/Abdominal exam: PRESENT: firm, hypoactive bowel sounds, soft Rectal exam: PRESENT: deferred Extremities exam: PRESENT: calf tenderness, pedal edema, +1 edema - Lower leg. Left AKA, other Neurological exam: PRESENT: alert, awake, oriented to person, oriented to place , oriented to time, oriented to situation, CN II-XII grossly intact. ABSENT: motor sensory deficit Psychiatric exam: PRESENT: anxious Skin exam: PRESENT: abrasion, skin tears - Chronic venous stasis color changes of the right lower extremity, warm, other Results Laboratory Results: 11/21/17 04:53 11/21/17 04:53 11/21/17 11/21/17 04:53 04:53 WBC 9.8 RBC 3.30 L Hgb 10.2 L Hct 30.3 L MCV 92 MCH 31.0 MCHC 33.7 RDW 18.0 H Plt Count 91 L Seg Neutrophils % 83.4 H Lymphocytes % 6.5 L Monocytes % 10.0 Eosinophils % 0.0 Basophils % 0.1 Absolute Neutrophils 8.2 Absolute Lymphocytes 0.6 Absolute Monocytes 1.0 Absolute Eosinophils 0.0 Absolute Basophils 0.0 Sodium 138.1 Potassium 3.9 Chloride 99 Carbon Dioxide 32 H Anion Gap 7 BUN 78 H Creatinine 3.21 H Est GFR ( Amer) 23 L Est GFR (Non-Af Amer) 19 L Glucose 166 H Calcium 8.5 11/12/17 11/14/17 23:18 14:21 Troponin I 0.045 NT-Pro-B Natriuret Pep 2810 H Impressions: Chest X-Ray 11/12/17 18:15 IMPRESSION: HEART ENLARGED WITHOUT FAILURE. NO OTHER SIGNIFICANT RADIOGRAPHIC FINDING IN THE CHEST.
--- NOTE | 2017-11-21 16:12 | Progress Note ---
Provider Note Provider Note: Discussed case with hospitalist at [facility] Reading on arterial doppler is vague "50- 90% stenosis right femoral artery" ankle - brachial ratio was 0.7 less than 1.3 suggestive of severe PVD we will repeat US and ankle -brachial ratio in am patient to be transferred if there is a suggestion of severe arterial stenosis otherwise he will be followed as an outpatient by Dr Urban vascular clinic at [facility]
--- NOTE | 2017-11-21 16:50 | PDOC PROGRESS REPORT ---
Subjective Progress Note for:: 11/20/17 Subjective:: Patient claims to be doing better. Asterixis has improved. Currently resting in bed with some nasal cannula oxygen supplementation. Pt is denying any chest arm or neck discomfort. Patient denied any sustained palpitations, dizziness, syncope, near syncope. Patient denying any fever chills. Patient denying any other significant discomfort. Patient is atrial paced rhythm. No sustained tachycardia or bradycardia arrhythmias noted. Review of systems: Rest review of systems negative. Medications: Medications have been reviewed. Reason For Visit: COPD EXCAERBATION Physical Exam Vital Signs: Temp Pulse Resp BP Pulse Ox 98.5 F 119 H 16 102/40 L 99 11/20/17 20:50 11/20/17 20:50 11/20/17 20:50 11/20/17 20:50 11/20/17 20:50 Intake & Output 11/19/17 11/20/17 11/21/17 06:59 06:59 06:59 Intake Total 488 2191 493 Output Total 1300 1600 850 Balance -812 591 -357 Weight 116.4 kg 118.8 kg Exam: GENERAL: well-nourished and mild respiratory distress. Alert and oriented x3 HEAD: Atraumatic, normocephalic. EYES: Pupils equal round and reactive to light, extraocular movements intact, sclera anicteric, conjunctiva are normal. ENT: TMs normal, nares patent, oropharynx clear without exudates. Moist mucous membranes. No oral ulcerations or bleeding gums noted NECK: supple without lymphadenopathy. Trachea is central. No cervical or axillary lymphadenopathy noted. Carotids are 2+, JVD 8 cm LUNGS: Respiration seems nonlabored, no significant accessory muscle action noted. Bilateral coarse crackles noted. Mild wheezes rales or rhonchi noted. No significant dullness noted on percussion. CHEST: Palpation of the chest wall shows no significant chest wall tenderness. No other significant abnormalities noted. HEART: [place] FILLETER, No PSH, 1/6 MAGGIE aortic area, 1/6 recinos systolic murmur mitral area, no rubs, no gallops. ABDOMEN: Soft, no significant tenderness appreciated, normoactive bowel sounds. No guarding, no rebound. No rigidity noted . No masses appreciated. EXTREMITIES: left below the knee amputation. The right leg has wound that is is covered up. At least 2+ edema noted of the right lower extremity with some superficial ulcerations. NEUROLOGICAL: Focused neurological exam showed no significant neurologic deficit. Normal speech, no focal weakness appreciated. PSYCH: Normal mood, normal affect. Judgment and insight within normal limits. SKIN: No significant ecchymosis, rash, signs of pruritus noted. Patient does have some ulcerations, which is superficial and covered with bandages. MUSCULOSKELETAL EXAM: No significant joint swelling noted. Results Laboratory Results: 11/20/17 05:25 11/20/17 05:25 11/20/17 11/20/17 05:25 05:25 WBC 8.5 RBC 3.19 L Hgb 9.8 L Hct 29.6 L MCV 93 MCH 30.8 MCHC 33.2 RDW 17.8 H Plt Count 88 L Seg Neutrophils % Not Reportable Lymphocytes % Not Reportable Monocytes % Not Reportable Eosinophils % Not Reportable Basophils % Not Reportable Absolute Neutrophils Not Reportable Absolute Lymphocytes Not Reportable Absolute Monocytes Not Reportable Absolute Eosinophils Not Reportable Absolute Basophils Not Reportable Sodium 135.4 L Potassium 3.9 Chloride 97 L Carbon Dioxide 29 Anion Gap 9 BUN 68 H Creatinine 3.09 H Est GFR ( Amer) 24 L Est GFR (Non-Af Amer) 20 L Glucose 341 H Calcium 8.4 Magnesium 2.1 Iron 314.8 H TIBC 260 % Saturation 121 Ferritin 214.00 11/12/17 11/14/17 23:18 14:21 Troponin I 0.045 NT-Pro-B Natriuret Pep 2810 H EKG Comments: Shows atrial paced rhythm. No tacky or bradycardia arrhythmias noted. Impressions: Chest X-Ray 11/12/17 18:15 IMPRESSION: HEART ENLARGED WITHOUT FAILURE. NO OTHER SIGNIFICANT RADIOGRAPHIC FINDING IN THE CHEST. Assessment & Plan - Diagnosis (1) CHF exacerbation Is this a current diagnosis for this admission?: Yes (2) COPD (chronic obstructive pulmonary disease) Qualifiers: COPD type: emphysema Emphysema type: unspecified Qualified Code(s): J43.9 - Emphysema, unspecified Is this a current diagnosis for this admission?: Yes (3) Coronary artery disease Qualifiers: Coronary Disease-Associated Artery/Lesion type: unspecified vessel or lesion type [place] vs. transplanted heart: [place] heart Associated angina: angina presence unspecified Qualified Code(s): I25.10 - Atherosclerotic heart disease of [place] coronary artery without angina pectoris Is this a current diagnosis for this admission?: Yes (4) DM type 2 (diabetes mellitus, type 2) Qualifiers: Diabetes mellitus complication status: with unspecified complications Diabetes mellitus terminal manager insulin use: unspecified alf insulin use status Qualified Code(s): E11.8 - Type 2 diabetes mellitus with unspecified complications Is this a current diagnosis for this admission?: Yes (5) Hyperlipidemia Qualifiers: Hyperlipidemia type: unspecified Qualified Code(s): E78.5 - Hyperlipidemia , unspecified Is this a current diagnosis for this admission?: Yes (6) Hypertension Qualifiers: Hypertension type: essential hypertension Qualified Code(s): I10 - Essential (primary) hypertension Is this a current diagnosis for this admission?: Yes (7) PVD (peripheral vascular disease) Is this a current diagnosis for this admission?: Yes (8) History of implantable cardioverter-defibrillator (ICD) placement Is this a current diagnosis for this admission?: Yes - Notes Notes: Continue current plans. Patient is showing slow gradual improvement on current regimen. CHF exacerbation: Continue with current regimen. Continue with entresto therapy and other therapy. Seems to be tolerating this well. Asterixis has improved. COPD: Agree with current management plans. Patient has been seen by rn family and management has been optimized. Coronary artery disease: Currently symptomatically stable without any angina symptoms. Diabetes: Recommend good management of diabetes but avoid any hypo-or hyperglycemia. Chronic kidney disease: Significant stage IV. Patient being followed by toe pounder. Hypertension: Blood pressure goal should be 135/85 or less but could well be more liberal in this patient because of Multiple other comorbidities. PVD with wound infection: Recommend vascular surgery consultation, wound care consultation. History of ICD placement: Telemetry strips shows a paced rhythm. Patient again advised the need for him to go to [place] to have defibrillator battery change out on discharge from here. - Time Time with patient: Greater than 35 minutes - CODE STATUS was discussed, patient remains full code. Surrogate decision-maker unchanged. Multiple medical problems were addressed. More than 50% of the time spent coordinating care, discussing management plans with involved caregivers. Management plans discussed with involved personnels. Medical decision making was of moderate to high complexity, patient's has multiple comorbidities. Medications reviewed and adjusted accordingly: Yes
--- NOTE | 2017-11-21 16:54 | PDOC PROGRESS REPORT ---
Subjective Progress Note for:: 11/21/17 Subjective:: No significant change in patient's condition. Patient remains with swelling of upper extremity, right lower extremity and some ulcerations which are all covered up. Patient claims to be doing better. Asterixis has improved. Currently resting in bed with some nasal cannula oxygen supplementation. Pt is denying any chest arm or neck discomfort. Patient denied any sustained palpitations, dizziness, syncope, near syncope. Patient denying any fever chills. Patient denying any other significant discomfort. Patient is atrial paced rhythm. No sustained tachycardia or bradycardia arrhythmias noted. Review of systems: Rest review of systems negative. Medications: Medications have been reviewed. Reason For Visit: COPD EXCAERBATION Physical Exam Vital Signs: Temp Pulse Resp BP Pulse Ox 98.1 F 60 18 118/49 L 96 11/21/17 12:14 11/21/17 14:00 11/21/17 13:59 11/21/17 12:14 11/21/17 13:59 Intake & Output 11/20/17 11/21/17 11/22/17 06:59 06:59 06:59 Intake Total 2191 898 450 Output Total 1600 2050 900 Balance 591 -1152 -450 Weight 118.8 kg 118.8 kg Exam: GENERAL: well-nourished and comfortable in no acute. Alert and oriented x3 HEAD: Atraumatic, normocephalic. EYES: Pupils equal round and reactive to light, extraocular movements intact, sclera anicteric, conjunctiva are normal. ENT: TMs normal, nares patent, oropharynx clear without exudates. Moist mucous membranes. No oral ulcerations or bleeding gums noted NECK: supple without lymphadenopathy. Trachea is central. No cervical or axillary lymphadenopathy noted. Carotids are 2+, JVD 8 cm LUNGS: Respiration seems nonlabored, no significant accessory muscle action noted. Bilateral coarse crackles noted. Mild wheezes rales or rhonchi noted. No significant dullness noted on percussion. CHEST: Palpation of the chest wall shows no significant chest wall tenderness. No other significant abnormalities noted. HEART: [place] DESIGN ANALYST, No PSH, 1/6 MAGGIE aortic area, 1/6 recinos systolic murmur mitral area, no rubs, no gallops. ABDOMEN: Soft, no significant tenderness appreciated, normoactive bowel sounds. No guarding, no rebound. No rigidity noted . No masses appreciated. EXTREMITIES: left below the knee amputation. The right leg has wound that is is covered up. At least 2+ edema noted of the right lower extremity with some superficial ulcerations. NEUROLOGICAL: Focused neurological exam showed no significant neurologic deficit. Normal speech, no focal weakness appreciated. PSYCH: Normal mood, normal affect. Judgment and insight within normal limits. SKIN: No significant ecchymosis, rash, signs of pruritus noted. Patient does have some ulcerations, which is superficial and covered with bandages. MUSCULOSKELETAL EXAM: No significant joint swelling noted. Results Laboratory Results: 11/21/17 04:53 11/21/17 04:53 11/21/17 11/21/17 04:53 04:53 WBC 9.8 RBC 3.30 L Hgb 10.2 L Hct 30.3 L MCV 92 MCH 31.0 MCHC 33.7 RDW 18.0 H Plt Count 91 L Seg Neutrophils % 83.4 H Lymphocytes % 6.5 L Monocytes % 10.0 Eosinophils % 0.0 Basophils % 0.1 Absolute Neutrophils 8.2 Absolute Lymphocytes 0.6 Absolute Monocytes 1.0 Absolute Eosinophils 0.0 Absolute Basophils 0.0 Sodium 138.1 Potassium 3.9 Chloride 99 Carbon Dioxide 32 H Anion Gap 7 BUN 78 H Creatinine 3.21 H Est GFR ( Amer) 23 L Est GFR (Non-Af Amer) 19 L Glucose 166 H Calcium 8.5 11/12/17 11/14/17 23:18 14:21 Troponin I 0.045 NT-Pro-B Natriuret Pep 2810 H Impressions: Chest X-Ray 11/12/17 18:15 IMPRESSION: HEART ENLARGED WITHOUT FAILURE. NO OTHER SIGNIFICANT RADIOGRAPHIC FINDING IN THE CHEST. Assessment & Plan - Diagnosis (1) CHF exacerbation Is this a current diagnosis for this admission?: Yes (2) COPD (chronic obstructive pulmonary disease) Qualifiers: COPD type: emphysema Emphysema type: unspecified Qualified Code(s): J43.9 - Emphysema, unspecified Is this a current diagnosis for this admission?: Yes (3) Coronary artery disease Qualifiers: Coronary Disease-Associated Artery/Lesion type: unspecified vessel or lesion type [place] vs. transplanted heart: [place] heart Associated angina: angina presence unspecified Qualified Code(s): I25.10 - Atherosclerotic heart disease of [place] coronary artery without angina pectoris Is this a current diagnosis for this admission?: Yes (4) DM type 2 (diabetes mellitus, type 2) Qualifiers: Diabetes mellitus complication status: with unspecified complications Diabetes mellitus intermediate teacher insulin use: unspecified intermediate insulin use status Qualified Code(s): E11.8 - Type 2 diabetes mellitus with unspecified complications Is this a current diagnosis for this admission?: Yes (5) Hyperlipidemia Qualifiers: Hyperlipidemia type: unspecified Qualified Code(s): E78.5 - Hyperlipidemia , unspecified Is this a current diagnosis for this admission?: Yes (6) Hypertension Qualifiers: Hypertension type: essential hypertension Qualified Code(s): I10 - Essential (primary) hypertension Is this a current diagnosis for this admission?: Yes (7) PVD (peripheral vascular disease) Is this a current diagnosis for this admission?: Yes (8) History of implantable cardioverter-defibrillator (ICD) placement Is this a current diagnosis for this admission?: Yes - Notes Notes: No significant change in patient condition. No medication changes were performed. CHF exacerbation: Continue with current regimen. Continue with entresto therapy and other therapy. Seems to be tolerating this well. Asterixis has improved. COPD: Agree with current management plans. Patient has been seen by fabric and accessories estimator and management has been optimized. Patient understands that he needs to use intermittent positive pressure ventilation whenever he is trying to sleep. Coronary artery disease: Currently symptomatically stable without any angina symptoms. Diabetes: Recommend good management of diabetes but avoid any hypo-or hyperglycemia. Chronic kidney disease: Significant stage IV. Patient being followed by coin rolling machine operator. Hypertension: Blood pressure goal should be 135/85 or less but could well be more liberal in this patient because of Multiple other comorbidities. PVD with wound infection: Recommend vascular surgery consultation, wound care consultation. Agree with Dr. Corado's assessment that patient will benefit from transfer to tertiary care overall. History of ICD placement: Telemetry strips shows a paced rhythm. Patient again advised the need for him to go to [place] to have defibrillator battery change out on discharge from here. Case discussed with Dr. Conroy. - Time Time with patient: 15-25 minutes - CODE STATUS was discussed, patient remains full code. Surrogate decision-maker unchanged. Multiple medical problems were addressed. More than 50% of the time spent coordinating care, discussing management plans with involved caregivers. Management plans discussed with involved personnels. Medical decision making was of moderate to high complexity , patient's has multiple comorbidities. Medications reviewed and adjusted accordingly: Yes
[2017-11-22] MEDS: OXYCODONE-ACETAMINOPHEN 5-325 MG TABLET PO PRN ×5 (00:11→23:20)
[2017-11-22] MEDS: LEVALBUTEROL HCL NEB 1.25 MG/3 ML AMPUL NEB SCH ×4 (02:17→19:59)
[2017-11-22] MEDS: LANSOPRAZOLE 30 MG TAB.RAP.DR PO SCH (06:19)
[2017-11-22] MEDS: SILVER SULFADIAZINE 1% CREAM 25 GM TP SCH ×2 (06:20→21:36)
[2017-11-22] MEDS: INSULIN REG, HUMAN 100 UNIT/ML 3 ML VIAL (PYX) SUBCUT PRN ×4 (08:01→22:37)
[2017-11-22] MEDS: BUDESONIDE NEB 0.5 MG/2 ML AMPUL NEB SCH ×2 (08:06→19:59)
[2017-11-22] MEDS: PREGABALIN 75 MG CAPSULE PO SCH ×2 (09:20→21:33)
[2017-11-22] MEDS: RANOLAZINE 500 MG TAB.SR.12H PO SCH ×2 (09:21→21:33)
[2017-11-22] MEDS: PREDNISONE 20 MG TABLET PO SCH (09:21)
[2017-11-22] MEDS: SENNOSIDES/DOCUSATE 8.6-50 MG 1 EACH TABLET PO SCH ×2 (09:21→18:23)
[2017-11-22] MEDS: METOLAZONE 5 MG TABLET PO SCH (09:22)
[2017-11-22] MEDS: ROFLUMILAST 500 MCG TABLET PO SCH (09:22)
[2017-11-22] MEDS: ISOSORBIDE MONONITRATE 30 MG TAB.ER.24H PO SCH (09:22)
[2017-11-22] MEDS: CHOLECALCIFEROL (D3) 400 UNIT TABLET PO SCH (09:22)
[2017-11-22] MEDS: DRONEDARONE HYDROCHLORIDE 400 MG TABLET PO SCH ×2 (09:23→21:33)
[2017-11-22] MEDS: ASPIRIN 81 MG TABLET, ENT COATED PO SCH (09:23)
[2017-11-22] MEDS: POTASSIUM CHLORIDE 10 MEQ TABLET.SA PO SCH (09:23)
[2017-11-22] MEDS: ALLOPURINOL 300 MG TABLET PO SCH (09:26)
[2017-11-22] MEDS: MULTIVITAMIN TABLET PO SCH (09:26)
[2017-11-22] MEDS: SACUBITRIL/VALSARTAN 24 MG/26 MG TABLET PO SCH ×2 (09:26→21:33)
[2017-11-22] MEDS: OSELTAMIVIR PHOSPHATE 75 MG CAPSULE PO SCH (09:26)
[2017-11-22] MEDS: MAGNESIUM OXIDE 400 MG TABLET PO SCH ×2 (09:26→18:23)
[2017-11-22] MEDS: NITROGLYCERIN 2.5 MG (0.1 MG/HR) PATCH.TD24 TD SCH (09:27)
[2017-11-22] MEDS: BUMETANIDE INJ/PF 1 MG/4 ML SDV IV SCH ×2 (09:27→21:34)
[2017-11-22] MEDS: BUDESONIDE/FORMOTEROL 160-4.5 MCG 60 PUFF/6 GM MDI IH SCH ×2 (09:27→21:34)
--- NOTE | 2017-11-22 12:32 | PDOC PROGRESS REPORT ---
Subjective Progress Note for:: 11/22/17 Subjective:: Patient seen on morning rounds. No significant change in patient's condition. Patient remains with swelling of upper extremity, right lower extremity and some ulcerations which are all covered up. Patient claims to be doing better. Asterixis has improved. Currently resting in bed with some nasal cannula oxygen supplementation. Pt is denying any chest arm or neck discomfort. Patient denied any sustained palpitations, dizziness, syncope, near syncope. Patient denying any fever chills. Patient denying any other significant discomfort. Patient is atrial paced rhythm. No sustained tachycardia or bradycardia arrhythmias noted. Review of systems: Rest review of systems negative. Medications: Medications have been reviewed. Reason For Visit: COPD EXCAERBATION Physical Exam Vital Signs: Temp Pulse Resp BP Pulse Ox 97.5 F 60 12 117/43 L 95 11/22/17 07:15 11/22/17 08:10 11/22/17 08:10 11/22/17 07:15 11/22/17 08:10 Intake & Output 11/21/17 11/22/17 11/23/17 06:59 06:59 06:59 Intake Total 898 1931 Output Total 2050 2900 Balance -1152 -969 Weight 118.8 kg 120.5 kg Exam: GENERAL: well-nourished and comfortable in no acute. Alert and oriented x3 HEAD: Atraumatic, normocephalic. EYES: Pupils equal round and reactive to light, extraocular movements intact, sclera anicteric, conjunctiva are normal. ENT: TMs normal, nares patent, oropharynx clear without exudates. Moist mucous membranes. No oral ulcerations or bleeding gums noted NECK: supple without lymphadenopathy. Trachea is central. No cervical or axillary lymphadenopathy noted. Carotids are 2+, JVD 8 cm LUNGS: Respiration seems nonlabored, no significant accessory muscle action noted. Bilateral coarse crackles noted. Mild wheezes rales or rhonchi noted. No significant dullness noted on percussion. CHEST: Palpation of the chest wall shows no significant chest wall tenderness. No other significant abnormalities noted. HEART: [place] CHIEF CLINICAL DIETITIAN, No PSH, 1/6 MAGGIE aortic area, 1/6 recinos systolic murmur mitral area, no rubs, no gallops. ABDOMEN: Soft, no significant tenderness appreciated, normoactive bowel sounds. No guarding, no rebound. No rigidity noted . No masses appreciated. EXTREMITIES: left below the knee amputation. The right leg has wound that is is covered up. At least 2+ edema noted of the right lower extremity with some superficial ulcerations. NEUROLOGICAL: Focused neurological exam showed no significant neurologic deficit. Normal speech, no focal weakness appreciated. PSYCH: Normal mood, normal affect. Judgment and insight within normal limits. SKIN: No significant ecchymosis, rash, signs of pruritus noted. Patient does have some ulcerations, which is superficial and covered with bandages. MUSCULOSKELETAL EXAM: No significant joint swelling noted. Results Laboratory Results: 11/21/17 04:53 11/21/17 04:53 11/12/17 11/14/17 23:18 14:21 Troponin I 0.045 NT-Pro-B Natriuret Pep 2810 H Impressions: Chest X-Ray 11/12/17 18:15 IMPRESSION: HEART ENLARGED WITHOUT FAILURE. NO OTHER SIGNIFICANT RADIOGRAPHIC FINDING IN THE CHEST. Assessment & Plan - Diagnosis (1) CHF exacerbation Is this a current diagnosis for this admission?: Yes (2) COPD (chronic obstructive pulmonary disease) Qualifiers: COPD type: emphysema Emphysema type: unspecified Qualified Code(s): J43.9 - Emphysema, unspecified Is this a current diagnosis for this admission?: Yes (3) Coronary artery disease Qualifiers: Coronary Disease-Associated Artery/Lesion type: unspecified vessel or lesion type [place] vs. transplanted heart: [place] heart Associated angina: angina presence unspecified Qualified Code(s): I25.10 - Atherosclerotic heart disease of [place] coronary artery without angina pectoris Is this a current diagnosis for this admission?: Yes (4) DM type 2 (diabetes mellitus, type 2) Qualifiers: Diabetes mellitus complication status: with unspecified complications Diabetes mellitus custom bookbinder insulin use: unspecified custom bookbinder insulin use status Qualified Code(s): E11.8 - Type 2 diabetes mellitus with unspecified complications Is this a current diagnosis for this admission?: Yes (5) Hyperlipidemia Qualifiers: Hyperlipidemia type: unspecified Qualified Code(s): E78.5 - Hyperlipidemia , unspecified Is this a current diagnosis for this admission?: Yes (6) Hypertension Qualifiers: Hypertension type: essential hypertension Qualified Code(s): I10 - Essential (primary) hypertension Is this a current diagnosis for this admission?: Yes (7) PVD (peripheral vascular disease) Is this a current diagnosis for this admission?: Yes (8) History of implantable cardioverter-defibrillator (ICD) placement Is this a current diagnosis for this admission?: Yes - Notes Notes: CHF exacerbation: Continue with current regimen. Continue with entresto therapy and other therapy. Seems to be tolerating this well. Asterixis has improved. COPD: Agree with current management plans. Patient has been seen by mains and service supervisor and management has been optimized. Patient understands that he needs to use intermittent positive pressure ventilation whenever he is trying to sleep. Coronary artery disease: Currently symptomatically stable without any angina symptoms. Diabetes: Recommend good management of diabetes but avoid any hypo-or hyperglycemia. Chronic kidney disease: Significant stage IV. Patient being followed by setter out. Hypertension: Blood pressure goal should be 135/85 or less but could well be more liberal in this patient because of Multiple other comorbidities. PVD with wound infection: Recommend vascular surgery consultation, wound care consultation. Patient may benefit from a repeat arterial duplex or lower extremity MRA without dye injection History of ICD placement: Telemetry strips shows a paced rhythm. Patient again advised the need for him to go to [place] to have defibrillator battery change out on discharge from here. - Time Time with patient: 15-25 minutes - CODE STATUS was discussed, patient remains full code. Surrogate decision-maker unchanged. Multiple medical problems were addressed. More than 50% of the time spent coordinating care, discussing management plans with involved caregivers. Management plans discussed with involved personnels. Medical decision making was of moderate to high complexity , patient's has multiple comorbidities. Medications reviewed and adjusted accordingly: Yes
--- NOTE | 2017-11-22 17:07 | PDOC PROGRESS REPORT ---
Subjective Progress Note for:: 11/22/17 Reason For Visit: Seen today. His edema and blistering of legs are better. A decision to transfer to tertiary care for possible intervention of the ? Femoral artery stenosis has been shelved as per patient.He denies any chest pains, dyspnea. No fever or chills.Good appetite.Lab and meds were reviewed with him. Physical Exam Vital Signs: Temp Pulse Resp BP Pulse Ox 98.0 F 60 12 106/50 L 94 11/22/17 12:32 11/22/17 14:00 11/22/17 13:16 11/22/17 12:32 11/22/17 13:16 Intake & Output 11/21/17 11/22/17 11/23/17 06:59 06:59 06:59 Intake Total 898 1931 500 Output Total 2050 2900 1000 Balance -1152 -969 -500 Weight 118.8 kg 120.5 kg General appearance: PRESENT: no acute distress Respiratory exam: PRESENT: clear to auscultation dipti. ABSENT: crackles Cardiovascular exam: PRESENT: irregular rhythm, +S1, +S2 GI/Abdominal exam: PRESENT: normal bowel sounds, soft. ABSENT: ascites, organomegaly, tenderness Extremities exam: PRESENT: pedal edema Neurological exam: PRESENT: alert, awake, oriented to person, oriented to place Results Laboratory Results: 11/21/17 04:53 11/21/17 04:53 11/12/17 11/14/17 23:18 14:21 Troponin I 0.045 NT-Pro-B Natriuret Pep 2810 H Impressions: Chest X-Ray 11/12/17 18:15 IMPRESSION: HEART ENLARGED WITHOUT FAILURE. NO OTHER SIGNIFICANT RADIOGRAPHIC FINDING IN THE CHEST. Assessment & Plan - Diagnosis (1) Acute kidney injury superimposed on CKD Is this a current diagnosis for this admission?: Yes Plan: He has pre renal CHF exacerberation causing his MYLES on top of his underlying CKD 3 likely from Diabetic nephropathy. He has relatively stable renal nos on the current medications. No acute indications for STEM SHAPER. (2) Chronic kidney disease, stage 3 Is this a current diagnosis for this admission?: Yes Plan: Now with MYLES on CKD 3 .Non Oliguric. Relatively stable.NO acute indication for STEM SHAPER. (3) Acute on chronic systolic heart failure Is this a current diagnosis for this admission?: Yes Plan: Patient has bi ventricular failre/CMP. Currently admitted with acute on chronic insult and improving on current management. (4) Acute respiratory failure with hypoxia Plan: Improving with resolution of his Acute CHF. (5) Diabetes type 2, uncontrolled Qualifiers: Diabetes mellitus complication status: with hyperglycemia Diabetes mellitus alf insulin use: with alf use Qualified Code(s): E11.65 - Type 2 diabetes mellitus with hyperglycemia; Z79.4 - halfway (current) use of insulin; Z79.4 - kennel attendant (current) use of insulin; Z79.4 - halfway ( current) use of insulin; Z79.4 - kennel attendant (current) use of insulin Plan: Adv on need for tight diabetic control. (6) Obesity (BMI 30.0-34.9) Is this a current diagnosis for this admission?: Yes (7) Hypokalemia Is this a current diagnosis for this admission?: Yes Plan: Stable on replacement. (8) Blisters of multiple sites Is this a current diagnosis for this admission?: Yes
[2017-11-22] MEDS: FINASTERIDE 5 MG TABLET PO SCH (21:33)
[2017-11-22] MEDS: ATORVASTATIN CALCIUM 40 MG TABLET PO SCH (21:33)
[2017-11-22] MEDS: TAMSULOSIN HCL 0.4 MG CAP.SR.24H PO SCH (21:33)
[2017-11-22] MEDS: INSULIN GLARGINE,HUM.REC.ANLOG 300 UNIT/3 ML INSULN.PEN SUBCUT SCH (21:34)
[2017-11-22] MEDS: METOPROLOL SUCCINATE 25 MG TAB.SR.24H PO SCH (22:37)
[2017-11-22] MEDS: MONTELUKAST SODIUM 10 MG TABLET PO SCH (22:38)
[2017-11-23] MEDS: LEVALBUTEROL HCL NEB 1.25 MG/3 ML AMPUL NEB SCH ×4 (02:11→20:21)
[2017-11-23] MEDS: OXYCODONE-ACETAMINOPHEN 5-325 MG TABLET PO PRN ×6 (03:37→23:53)
[2017-11-23] MEDS: LANSOPRAZOLE 30 MG TAB.RAP.DR PO SCH (05:37)
[2017-11-23] MEDS: BUDESONIDE NEB 0.5 MG/2 ML AMPUL NEB SCH ×2 (07:56→20:21)
[2017-11-23] MEDS: INSULIN REG, HUMAN 100 UNIT/ML 3 ML VIAL (PYX) SUBCUT PRN ×3 (08:42→21:49)
[2017-11-23] MEDS: PREDNISONE 20 MG TABLET PO SCH (10:50)
[2017-11-23] MEDS: METOLAZONE 5 MG TABLET PO SCH (10:50)
[2017-11-23] MEDS: ASPIRIN 81 MG TABLET, ENT COATED PO SCH (10:50)
[2017-11-23] MEDS: BUMETANIDE INJ/PF 1 MG/4 ML SDV IV SCH ×2 (10:52→21:32)
[2017-11-23] MEDS: ALLOPURINOL 300 MG TABLET PO SCH (10:52)
[2017-11-23] MEDS: BUDESONIDE/FORMOTEROL 160-4.5 MCG 60 PUFF/6 GM MDI IH SCH ×2 (10:54→21:33)
[2017-11-23] MEDS: ISOSORBIDE MONONITRATE 30 MG TAB.ER.24H PO SCH (10:54)
[2017-11-23] MEDS: MAGNESIUM OXIDE 400 MG TABLET PO SCH ×2 (10:55→18:15)
[2017-11-23] MEDS: PREGABALIN 75 MG CAPSULE PO SCH ×2 (10:55→21:33)
[2017-11-23] MEDS: SACUBITRIL/VALSARTAN 24 MG/26 MG TABLET PO SCH ×2 (10:55→21:33)
[2017-11-23] MEDS: MULTIVITAMIN TABLET PO SCH (10:55)
[2017-11-23] MEDS: DRONEDARONE HYDROCHLORIDE 400 MG TABLET PO SCH ×2 (10:55→21:33)
[2017-11-23] MEDS: ROFLUMILAST 500 MCG TABLET PO SCH (10:55)
[2017-11-23] MEDS: POTASSIUM CHLORIDE 10 MEQ TABLET.SA PO SCH (10:56)
[2017-11-23] MEDS: RANOLAZINE 500 MG TAB.SR.12H PO SCH ×2 (10:56→21:33)
[2017-11-23] MEDS: NITROGLYCERIN 2.5 MG (0.1 MG/HR) PATCH.TD24 TD SCH (10:57)
[2017-11-23] MEDS: SENNOSIDES/DOCUSATE 8.6-50 MG 1 EACH TABLET PO SCH ×2 (10:57→18:15)
[2017-11-23] MEDS: CHOLECALCIFEROL (D3) 400 UNIT TABLET PO SCH (11:46)
[2017-11-23 11:54] LABS: ANION GAP 8 (5-19); BLOOD UREA NITROGEN 85 mg/dL (7-20); CALCIUM 8.4 mg/dL (8.4-10.2); CARBON DIOXIDE 29 mmol/L (22-30); CHLORIDE 100 mmol/L (98-107); GLUCOSE 132 mg/dL (75-110); POTASSIUM 3.7 mmol/L (3.6-5.0); SODIUM 137.3 mmol/L (137-145)
--- NOTE | 2017-11-23 19:15 | PDOC PROGRESS REPORT ---
Subjective Progress Note for:: 11/23/17 Subjective:: He was laying in his bed today. He claims that he feels that he needs some therapy to help him get stronger before he is discharged. He previously was able to walk and golf 18 holes prior to admission. Current he denies chest pain , SOB, cough, fevers or chills. Reason For Visit: COPD EXCAERBATION Physical Exam Vital Signs: Temp Pulse Resp BP Pulse Ox 97.5 F 57 L 18 100/36 L 100 11/23/17 15:56 11/23/17 15:56 11/23/17 15:56 11/23/17 15:56 11/23/17 15:56 Intake & Output 11/22/17 11/23/17 11/24/17 06:59 06:59 06:59 Intake Total 1932019 242 Output Total 2900 3600 500 Balance -969 -1580 -258 Weight 120.5 kg 117.5 kg General appearance: PRESENT: no acute distress, well-developed, well-nourished Mouth exam: PRESENT: moist, neck supple Neck exam: PRESENT: full ROM. ABSENT: JVD, tracheal deviation Respiratory exam: PRESENT: crackles, rhonchi. ABSENT: accessory muscle use, clear to auscultation dipti, rales Cardiovascular exam: PRESENT: irregular rhythm, +S1, +S2 GI/Abdominal exam: PRESENT: normal bowel sounds, soft. ABSENT: ascites, organomegaly, tenderness Extremities exam: PRESENT: pedal edema, tenderness, +1 edema Musculoskeletal exam: PRESENT: tenderness. ABSENT: normal inspection Neurological exam: PRESENT: alert, awake, oriented to person, oriented to place , oriented to time, oriented to situation Psychiatric exam: PRESENT: appropriate affect, normal mood Skin exam: PRESENT: dry, skin tears, warm. ABSENT: cyanosis, intact Results Laboratory Results: 11/21/17 04:53 11/23/17 11:19 11/23/17 11:19 Sodium 137.3 Potassium 3.7 Chloride 100 Carbon Dioxide 29 Anion Gap 8 BUN 85 H Creatinine 2.48 H Est GFR ( Amer) 31 L Est GFR (Non-Af Amer) 25 L Glucose 132 H Calcium 8.4 11/12/17 11/14/17 23:18 14:21 Troponin I 0.045 NT-Pro-B Natriuret Pep 2810 H Impressions: Chest X-Ray 11/12/17 18:15 IMPRESSION: HEART ENLARGED WITHOUT FAILURE. NO OTHER SIGNIFICANT RADIOGRAPHIC FINDING IN THE CHEST. Assessment & Plan - Diagnosis (1) Acute on chronic systolic heart failure Is this a current diagnosis for this admission?: Yes Plan: currently improving on current bumex dose (2) Anasarca Is this a current diagnosis for this admission?: Yes Plan: improving (3) Acute kidney injury superimposed on CKD Is this a current diagnosis for this admission?: Yes Plan: improving (4) Chronic kidney disease, stage 3 Is this a current diagnosis for this admission?: Yes Plan: improving, baseline creatinine is 1.8. (5) Anemia Qualifiers: Other causes of anemia: chronic disease, other Is this a current diagnosis for this admission?: Yes Plan: patient may need to have procrit shots, currently creatinine is in the 10s, iron panel is adequate (6) Hypertension Qualifiers: Hypertension type: essential hypertension Qualified Code(s): I10 - Essential (primary) hypertension Is this a current diagnosis for this admission?: Yes Plan: currently controlled (7) Acute on chronic respiratory failure with hypoxia and hypercapnia Is this a current diagnosis for this admission?: Yes Plan: improving (8) COPD with acute exacerbation Is this a current diagnosis for this admission?: Yes (9) Blisters of multiple sites Is this a current diagnosis for this admission?: Yes (10) Diabetes type 2, uncontrolled Qualifiers: Diabetes mellitus complication status: with hyperglycemia Diabetes mellitus mcfp insulin use: with mcfp use Qualified Code(s): E11.65 - Type 2 diabetes mellitus with hyperglycemia; Z79.4 - nursing home (current) use of insulin; Z79.4 - intermediate designer (current) use of insulin; Z79.4 - intermediate designer ( current) use of insulin; Z79.4 - nursing home (current) use of insulin (11) Debility Plan: recommend PT
[2017-11-23 20:18] LABS: APPEARANCE,URINE SLIGHTLY-CLOUDY; BILIRUBIN,URINE NEGATIVE (NEGATIVE); COLOR,URINE DARK YELLOW; GLUCOSE, URINE 150 mg/dL (NEGATIVE); KETONES,URINE NEGATIVE (NEGATIVE); LEUKOCYTE ESTERASE,URINE SMALL (NEGATIVE); NITRITE,URINE NEGATIVE (NEGATIVE); PROTEIN,URINE 30 mg/dL (NEGATIVE); URINE SPECIFIC GRAVITY 1.013; UROBILINOGEN,URINE NEGATIVE mg/dL (<2.0)
[2017-11-23] MEDS: TAMSULOSIN HCL 0.4 MG CAP.SR.24H PO SCH (21:33)
[2017-11-23] MEDS: FINASTERIDE 5 MG TABLET PO SCH (21:33)
[2017-11-23] MEDS: MONTELUKAST SODIUM 10 MG TABLET PO SCH (21:33)
[2017-11-23] MEDS: SILVER SULFADIAZINE 1% CREAM 25 GM TP SCH (21:33)
[2017-11-23] MEDS: METOPROLOL SUCCINATE 25 MG TAB.SR.24H PO SCH (21:35)
[2017-11-23] MEDS: INSULIN GLARGINE,HUM.REC.ANLOG 300 UNIT/3 ML INSULN.PEN SUBCUT SCH (21:49)
[2017-11-23] MEDS: ATORVASTATIN CALCIUM 40 MG TABLET PO SCH (21:49)
[2017-11-24] MEDS: LEVALBUTEROL HCL NEB 1.25 MG/3 ML AMPUL NEB SCH ×4 (02:06→19:59)
[2017-11-24] MEDS: OXYCODONE-ACETAMINOPHEN 5-325 MG TABLET PO PRN ×4 (03:43→20:40)
[2017-11-24] MEDS: LANSOPRAZOLE 30 MG TAB.RAP.DR PO SCH (05:24)
[2017-11-24 07:06] LABS: INTERNATIONAL RATION (INR) 2.09; PROTHROMBIN TIME 24.6 SEC (11.4-15.4)
[2017-11-24 07:22] LABS: HEMATOCRIT 30.4 % (37.9-51.0); HEMOGLOBIN 10.5 g/dL (13.5-17.0); MEAN CORPUSCULAR HEMOGLOBIN 31.3 pg (27.0-33.4); MEAN CORPUSCULAR HGB CONC 34.5 g/dL (32.0-36.0); MEAN CORPUSCULAR VOLUME 91 fl (80-97); PLATELET COUNT 102 10^3/uL (150-450); RED BLOOD COUNT 3.35 10^6/uL (4.35-5.55); RED CELL DISTRIBUTION WIDTH 18.1 % (11.5-14.0); WHITE BLOOD COUNT 8.4 10^3/uL (4.0-10.5)
[2017-11-24 07:33] LABS: ANION GAP 8 (5-19); BLOOD UREA NITROGEN 93 mg/dL (7-20); CALCIUM 8.6 mg/dL (8.4-10.2); CARBON DIOXIDE 34 mmol/L (22-30); CHLORIDE 99 mmol/L (98-107); GLUCOSE 159 mg/dL (75-110); POTASSIUM 3.5 mmol/L (3.6-5.0); SODIUM 140.8 mmol/L (137-145)
[2017-11-24 07:40] LABS: ABSOLUTE LYMPHOCYTES# (MANUAL) 0.3 10^3/uL (0.5-4.7); ABSOLUTE MONOCYTES # (MANUAL) 0.5 10^3/uL (0.1-1.4); ABSOLUTE NEUTROPHILS# (MANUAL) 7.6 10^3/uL (1.7-8.2); ANISOCYTOSIS 2+; BAND NEUTROPHILS % (MANUAL) 3 % (3-5); BASOPHILS % (MANUAL) 0 % (0-2); EOSINOPHILS % (MANUAL) 0 % (0-6); HYPOCHROMASIA SLIGHT; LYMPHOCYTES % (MANUAL) 4 % (13-45); METAMYELOCYTES % (MANUAL) 1 % (0); MONOCYTES % (MANUAL) 6 % (3-13); PLATELET COMMENT DECREASED; POLYCHROMASIA SLIGHT; ROULEAUX SLIGHT; SEGMENTED NEUTROPHILS % (MAN) 86 % (42-78); TOTAL CELLS COUNTED 100; TOXIC GRANULATION SLIGHT
[2017-11-24] MEDS: BUDESONIDE NEB 0.5 MG/2 ML AMPUL NEB SCH ×2 (07:50→19:59)
[2017-11-24] MEDS ORDERED: POTASSIUM CHLORIDE 10 MEQ TABLET.SA PO ONE (08:13)
--- NOTE | 2017-11-24 08:56 | PDOC PROGRESS REPORT ---
Subjective Progress Note for:: 11/23/17 Subjective:: Patient was readmitted shortly after being discharged on 11/12/2017. Patient presented with complaint of shortness of breath. Patient appear to be volume overloaded. Patient has history of CHF and CKD. Patient also has peripheral vascular disease. Providers are located in [place] however patient prefers to come here as it is closer to home. Patient states he is not doing very well. Patient reports being extremely weak. Patient states he can hardly walk to the bathroom without feeling as if his legs are going to give out. Reason For Visit: COPD EXCAERBATION Physical Exam Vital Signs: Temp Pulse Resp BP Pulse Ox 97.5 F 57 L 18 100/36 L 100 11/23/17 15:56 11/23/17 15:56 11/23/17 15:56 11/23/17 15:56 11/23/17 15:56 Intake & Output 11/22/17 11/23/17 11/24/17 06:59 06:59 06:59 Intake Total 1931 2020 242 Output Total 2900 3600 500 Balance -969 -1580 -258 Weight 120.5 kg 117.5 kg General appearance: PRESENT: no acute distress, obese Head exam: PRESENT: normocephalic Eye exam: PRESENT: EOMI, periorbital swelling. ABSENT: scleral icterus Ear exam: PRESENT: normal external ear exam Mouth exam: PRESENT: moist Neck exam: ABSENT: carotid bruit, JVD, lymphadenopathy, thyromegaly Respiratory exam: PRESENT: clear to auscultation dipti, unlabored. ABSENT: rales , rhonchi, wheezes Cardiovascular exam: PRESENT: RRR. ABSENT: diastolic murmur, rubs, systolic murmur Pulses: PRESENT: normal dorsalis pedis pul Vascular exam: PRESENT: normal capillary refill GI/Abdominal exam: PRESENT: normal bowel sounds, soft. ABSENT: distended, guarding, mass, organolmegaly, rebound, tenderness Rectal exam: PRESENT: deferred Gentrourinary exam: PRESENT: indwelling catheter Extremities exam: PRESENT: full ROM, other - Edema of the hands and arms improved patient still has sacral edema and edema of the thigh. ABSENT: calf tenderness, clubbing, pedal edema Musculoskeletal exam: PRESENT: other - Prosthesis in place Neurological exam: PRESENT: alert, awake, oriented to person, oriented to place , oriented to time, oriented to situation, CN II-XII grossly intact. ABSENT: motor sensory deficit Psychiatric exam: PRESENT: appropriate affect, normal mood. ABSENT: homicidal ideation, suicidal ideation Skin exam: PRESENT: dry, intact, warm, other - Seen on right lower extremity with multiple dressings on his arms. ABSENT: cyanosis, rash Results Laboratory Results: 11/21/17 04:53 11/23/17 11:19 11/23/17 11:19 Sodium 137.3 Potassium 3.7 Chloride 100 Carbon Dioxide 29 Anion Gap 8 BUN 85 H Creatinine 2.48 H Est GFR ( Amer) 31 L Est GFR (Non-Af Amer) 25 L Glucose 132 H Calcium 8.4 11/12/17 11/14/17 23:18 14:21 Troponin I 0.045 NT-Pro-B Natriuret Pep 2810 H Impressions: Chest X-Ray 11/12/17 18:15 IMPRESSION: HEART ENLARGED WITHOUT FAILURE. NO OTHER SIGNIFICANT RADIOGRAPHIC FINDING IN THE CHEST. Assessment & Plan - Diagnosis (1) Combined systolic and diastolic congestive heart failure Qualifiers: Heart failure chronicity: acute on chronic Qualified Code(s): I50.43 - Acute on chronic combined systolic (congestive) and diastolic (congestive) heart failure Is this a current diagnosis for this admission?: Yes Plan: Patient with a EF of 30-35% also a grade 2 diastolic dysfunction. Patient on Bumex and metolazone. Patient was started on trazodone by cardiology patient also on metoprolol. Patient still with noticeable edema however improved. He is maintaining a negative fluid balance. Cardiology following. Patient was advised to to go to [place] following discharge to have his defibrillator battery changed. (2) COPD exacerbation Is this a current diagnosis for this admission?: Yes Plan: Patient with COPD exacerbation. Patient on prednisone, Daliresp, Xopenex and budesonide. Pulmonology consulted and following. (3) Chronic atrial fibrillation Is this a current diagnosis for this admission?: Yes Plan: Patient with chronic atrial fibrillation. Patient currently on Multaq, metoprolol and anticoagulated with Coumadin. (4) Urinary retention due to benign prostatic hyperplasia Is this a current diagnosis for this admission?: Yes Plan: Having urinary retention secondary to BPH. Patient has Ang in place. Patient appears to be draining quite well. Patient is still on Flomax. (5) Anemia in chronic kidney disease Qualifiers: Chronic kidney disease stage: stage 3 (moderate) Qualified Code(s): N18.3 - Chronic kidney disease, stage 3 (moderate); D63.1 - Anemia in chronic kidney disease; D63.1 - Anemia in chronic kidney disease Is this a current diagnosis for this admission?: Yes Plan: Patient with a hemoglobin of 10.5 which appears to be stable. Possibly be due to his CKD. (6) Acute kidney injury superimposed on CKD Is this a current diagnosis for this admission?: Yes Plan: Patient has acute on chronic CKD stage III. Patient renal function appears stable we will follow-up creatinine in the morning. Nephrology is following closely. (7) Acute on chronic respiratory failure with hypoxia and hypercapnia Is this a current diagnosis for this admission?: Yes Plan: Patient is wearing BiPAP at night. (8) CAD (coronary artery disease) Qualifiers: Coronary Disease-Associated Artery/Lesion type: unspecified vessel or lesion type [place] vs. transplanted heart: [place] heart Associated angina: angina presence unspecified Qualified Code(s): I25.10 - Atherosclerotic heart disease of [place] coronary artery without angina pectoris Plan: Patient currently on beta-stalin aspirin and statin. Patient appears stable from a cardiac standpoint. (9) Chronic anticoagulation Is this a current diagnosis for this admission?: Yes Plan: Patient on Coumadin. Will follow-up INR. (10) Chronic idiopathic thrombocytopenia Is this a current diagnosis for this admission?: Yes Plan: Appears stable will monitor. (11) Diabetes type 2, uncontrolled Qualifiers: Diabetes mellitus complication status: with hyperglycemia Diabetes mellitus cardiac cath technician insulin use: with cardiac cath technician use Qualified Code(s): E11.65 - Type 2 diabetes mellitus with hyperglycemia; Z79.4 - tug boat engineer (current) use of insulin; Z79.4 - skilled nursing (current) use of insulin; Z79.4 - tug boat engineer ( current) use of insulin; Z79.4 - skilled nursing (current) use of insulin Is this a current diagnosis for this admission?: Yes Plan: Continue current regimen and adjust accordingly. Patient is on oral steroids which may cause difficulty with controlling his blood sugars. (12) PVD (peripheral vascular disease) Is this a current diagnosis for this admission?: Yes Plan: Patient is normally followed up in [place]. Patient did discuss the case with hospitalist at [facility]. Unfortunately we were not unable to complete the ankle-brachial ratio tests due to the wounds on his right lower extremity. Plan is to have patient follow-up as outpatient with Dr. Urban vascular clinic at [facility]. (13) Debility Is this a current diagnosis for this admission?: Yes Plan: Patient complaining of weakness with ambulation. Patient states he was week prior to previous discharge. PT consulted. - Time Time Spent with patient: 15-24 minutes Anticipated discharge: Home Within: within 72 hours - Inpatient Certification Medical Necessity: Significant Comorbidiites Make Outpatient Treatment Too Risky - Patient still with significant swelling, Need Close Monitoring Due to Risk of Patient Decompensation
[2017-11-24] MEDS: INSULIN REG, HUMAN 100 UNIT/ML 3 ML VIAL (PYX) SUBCUT PRN ×2 (09:18→17:56)
[2017-11-24] MEDS: ISOSORBIDE MONONITRATE 30 MG TAB.ER.24H PO SCH (09:19)
[2017-11-24] MEDS: METOLAZONE 5 MG TABLET PO SCH (09:19)
[2017-11-24] MEDS: ASPIRIN 81 MG TABLET, ENT COATED PO SCH (09:19)
[2017-11-24] MEDS: SENNOSIDES/DOCUSATE 8.6-50 MG 1 EACH TABLET PO SCH ×2 (09:19→17:56)
[2017-11-24] MEDS: MULTIVITAMIN TABLET PO SCH (09:19)
[2017-11-24] MEDS: ROFLUMILAST 500 MCG TABLET PO SCH (09:20)
[2017-11-24] MEDS: RANOLAZINE 500 MG TAB.SR.12H PO SCH ×2 (09:20→22:34)
[2017-11-24] MEDS: CHOLECALCIFEROL (D3) 400 UNIT TABLET PO SCH (09:20)
[2017-11-24] MEDS: MAGNESIUM OXIDE 400 MG TABLET PO SCH ×2 (09:20→17:56)
[2017-11-24] MEDS: PREGABALIN 75 MG CAPSULE PO SCH ×2 (09:20→22:34)
[2017-11-24] MEDS: SACUBITRIL/VALSARTAN 24 MG/26 MG TABLET PO SCH (09:21)
[2017-11-24] MEDS: NITROGLYCERIN 2.5 MG (0.1 MG/HR) PATCH.TD24 TD SCH (09:21)
[2017-11-24] MEDS: PREDNISONE 20 MG TABLET PO SCH (09:22)
[2017-11-24] MEDS: ALLOPURINOL 300 MG TABLET PO SCH (09:22)
[2017-11-24] MEDS: POTASSIUM CHLORIDE 10 MEQ TABLET.SA PO SCH ×2 (09:24→22:36)
[2017-11-24] MEDS: DRONEDARONE HYDROCHLORIDE 400 MG TABLET PO SCH ×2 (09:24→22:37)
[2017-11-24] MEDS: FUROSEMIDE INJ/PF 40 MG/4 ML SDV IV SCH ×2 (11:28→22:37)
--- NOTE | 2017-11-24 11:58 | PDOC PROGRESS REPORT ---
Subjective Progress Note for:: 11/23/17 Subjective:: Patient seen on morning rounds. No significant change in patient's condition. Patient remains with swelling of upper extremity, right lower extremity and some ulcerations which are all covered up. Patient complains of generalized weakness and unable to stand or walk. Patient to be evaluated by physical therapy. Patient claims to be doing better. Asterixis has improved. Currently resting in bed with some nasal cannula oxygen supplementation. Pt is denying any chest arm or neck discomfort. Patient denied any sustained palpitations, dizziness, syncope, near syncope. Patient denying any fever chills. Patient denying any other significant discomfort. Patient is atrial paced rhythm. No sustained tachycardia or bradycardia arrhythmias noted. Review of systems: Rest review of systems negative. Medications: Medications have been reviewed. Reason For Visit: COPD EXCAERBATION Physical Exam Vital Signs: Temp Pulse Resp BP Pulse Ox 97.5 F 57 L 18 100/36 L 100 11/23/17 15:56 11/23/17 15:56 11/23/17 15:56 11/23/17 15:56 11/23/17 15:56 Intake & Output 11/22/17 11/23/17 11/24/17 06:59 06:59 06:59 Intake Total 1931 2020 242 Output Total 2900 3600 500 Balance -969 -1580 -258 Weight 120.5 kg 117.5 kg Exam: GENERAL: well-nourished and comfortable in no acute. Alert and oriented x3 HEAD: Atraumatic, normocephalic. EYES: Pupils equal round and reactive to light, extraocular movements intact, sclera anicteric, conjunctiva are normal. ENT: TMs normal, nares patent, oropharynx clear without exudates. Moist mucous membranes. No oral ulcerations or bleeding gums noted NECK: supple without lymphadenopathy. Trachea is central. No cervical or axillary lymphadenopathy noted. Carotids are 2+, JVD 8 cm LUNGS: Respiration seems nonlabored, no significant accessory muscle action noted. Bilateral coarse crackles noted. Mild wheezes rales or rhonchi noted. No significant dullness noted on percussion. CHEST: Palpation of the chest wall shows no significant chest wall tenderness. No other significant abnormalities noted. 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 ABDOMEN: Soft, no significant tenderness appreciated, normoactive bowel sounds. No guarding, no rebound. No rigidity noted . No masses appreciated. EXTREMITIES: left below the knee amputation. The right leg has wound that is is covered up. At least 2+ edema noted of the right lower extremity with some superficial ulcerations. NEUROLOGICAL: Focused neurological exam showed no significant neurologic deficit. Normal speech, no focal weakness appreciated. PSYCH: Normal mood, normal affect. Judgment and insight within normal limits. SKIN: No significant ecchymosis, rash, signs of pruritus noted. Patient does have some ulcerations, which is superficial and covered with bandages. MUSCULOSKELETAL EXAM: No significant joint swelling noted. Results Laboratory Results: 11/21/17 04:53 11/23/17 11:19 11/23/17 11:19 Sodium 137.3 Potassium 3.7 Chloride 100 Carbon Dioxide 29 Anion Gap 8 BUN 85 H Creatinine 2.48 H Est GFR ( Amer) 31 L Est GFR (Non-Af Amer) 25 L Glucose 132 H Calcium 8.4 11/12/17 11/14/17 23:18 14:21 Troponin I 0.045 NT-Pro-B Natriuret Pep 2810 H EKG Comments: Shows mainly atrial paced rhythm. No sustained tachycardia or bradycardia arrhythmias noted. Impressions: Chest X-Ray 11/12/17 18:15 IMPRESSION: HEART ENLARGED WITHOUT FAILURE. NO OTHER SIGNIFICANT RADIOGRAPHIC FINDING IN THE CHEST. Assessment & Plan - Diagnosis (1) CHF exacerbation Is this a current diagnosis for this admission?: Yes (2) COPD (chronic obstructive pulmonary disease) Qualifiers: COPD type: emphysema Emphysema type: unspecified Qualified Code(s): J43.9 - Emphysema, unspecified Is this a current diagnosis for this admission?: Yes (3) Coronary artery disease Qualifiers: Coronary Disease-Associated Artery/Lesion type: unspecified vessel or lesion type [place] vs. transplanted heart: [place] heart Associated angina: angina presence unspecified Qualified Code(s): I25.10 - Atherosclerotic heart disease of [place] coronary artery without angina pectoris Is this a current diagnosis for this admission?: Yes (4) DM type 2 (diabetes mellitus, type 2) Qualifiers: Diabetes mellitus complication status: with unspecified complications Diabetes mellitus fdc insulin use: unspecified fdc insulin use status Qualified Code(s): E11.8 - Type 2 diabetes mellitus with unspecified complications Is this a current diagnosis for this admission?: Yes (5) Hyperlipidemia Qualifiers: Hyperlipidemia type: unspecified Qualified Code(s): E78.5 - Hyperlipidemia , unspecified Is this a current diagnosis for this admission?: Yes (6) Hypertension Qualifiers: Hypertension type: essential hypertension Qualified Code(s): I10 - Essential (primary) hypertension Is this a current diagnosis for this admission?: Yes (7) PVD (peripheral vascular disease) Is this a current diagnosis for this admission?: Yes (8) History of implantable cardioverter-defibrillator (ICD) placement Is this a current diagnosis for this admission?: Yes - Notes Notes: CHF exacerbation: Continue with current regimen. Continue with entresto therapy and other therapy. Seems to be tolerating this well. COPD: Agree with current management plans. Patient has been seen by dba developer and management has been optimized. Patient understands that he needs to use intermittent positive pressure ventilation whenever he is trying to sleep. Coronary artery disease: Currently symptomatically stable without any angina symptoms. Diabetes: Recommend good management of diabetes but avoid any hypo-or hyperglycemia. Chronic kidney disease: Significant stage IV. Patient being followed by boiler water tester. Hypertension: Blood pressure goal should be 135/85 or less but could well be more liberal in this patient because of Multiple other comorbidities. PVD with wound infection: Recommend vascular surgery consultation, wound care consultation. History of ICD placement: Telemetry strips shows a paced rhythm. Patient again advised the need for him to go to [place] to have defibrillator battery change out on discharge from here. General debility: Patient will benefit from physical therapy which I am told is starting from today. - Time Time with patient: 15-25 minutes - CODE STATUS was discussed, patient remains full code. Surrogate decision-maker unchanged. Multiple medical problems were addressed. More than 50% of the time spent coordinating care, discussing management plans with involved caregivers. Management plans discussed with involved personnels. Medical decision making was of moderate to high complexity , patient's has multiple comorbidities. Medications reviewed and adjusted accordingly: Yes
--- NOTE | 2017-11-24 12:06 | PDOC PROGRESS REPORT ---
Subjective Progress Note for:: 11/24/17 Subjective:: Patient seen on morning rounds. No significant change in patient's condition. Patient remains with swelling of upper extremity, right lower extremity and some ulcerations which are all covered up. Patient is denying any chest, neck discomfort. He has some baseline shortness of breath but denied any worsening. Patient just feels generally weak. Patient claims he is ready to go home but need to be able to walk before he can be discharged. Patient claims to be doing better. Patient claims that he is working with physical therapy now. I feel that he might need a walker. Patient is atrial paced rhythm. No sustained tachycardia or bradycardia arrhythmias noted. Review of systems: Rest review of systems negative. Medications: Medications have been reviewed. Reason For Visit: COPD EXCAERBATION Physical Exam Vital Signs: Temp Pulse Resp BP Pulse Ox 97.5 F 60 16 105/43 L 98 11/24/17 07:06 11/24/17 07:50 11/24/17 07:50 11/24/17 07:06 11/24/17 07:50 Intake & Output 11/23/17 11/24/17 11/25/17 06:59 06:59 06:59 Intake Total 2020 804 Output Total 3600 2475 Balance -1580 -1671 Weight 117.5 kg 116.3 kg Exam: GENERAL: well-nourished and comfortable in no acute. Alert and oriented x3 HEAD: Atraumatic, normocephalic. EYES: Pupils equal round and reactive to light, extraocular movements intact, sclera anicteric, conjunctiva are normal. ENT: TMs normal, nares patent, oropharynx clear without exudates. Moist mucous membranes. No oral ulcerations or bleeding gums noted NECK: supple without lymphadenopathy. Trachea is central. No cervical or axillary lymphadenopathy noted. Carotids are 2+, JVD 8 cm LUNGS: Respiration seems nonlabored, no significant accessory muscle action noted. Bilateral coarse crackles noted. Mild wheezes rales or rhonchi noted. No significant dullness noted on percussion. CHEST: Palpation of the chest wall shows no significant chest wall tenderness. No other significant abnormalities noted. 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 ABDOMEN: Soft, no significant tenderness appreciated, normoactive bowel sounds. No guarding, no rebound. No rigidity noted . No masses appreciated. EXTREMITIES: left below the knee amputation. The right leg has wound that is is covered up. 1+ edema noted of the right lower extremity with some superficial ulcerations. NEUROLOGICAL: Focused neurological exam showed no significant neurologic deficit. Normal speech, no focal weakness appreciated. PSYCH: Normal mood, normal affect. Judgment and insight within normal limits. SKIN: No significant ecchymosis, rash, signs of pruritus noted. Patient does have some ulcerations, which is superficial and covered with bandages. MUSCULOSKELETAL EXAM: No significant joint swelling noted. Results Laboratory Results: 11/24/17 06:25 11/24/17 06:25 11/23/17 11/24/17 11/24/17 20:00 06:25 06:25 WBC 8.4 RBC 3.35 L Hgb 10.5 L Hct 30.4 L MCV 91 MCH 31.3 MCHC 34.5 RDW 18.1 H Plt Count 102 L Seg Neutrophils % Not Reportable Lymphocytes % Not Reportable Monocytes % Not Reportable Eosinophils % Not Reportable Basophils % Not Reportable Absolute Neutrophils Not Reportable Absolute Lymphocytes Not Reportable Absolute Monocytes Not Reportable Absolute Eosinophils Not Reportable Absolute Basophils Not Reportable Sodium 140.8 Potassium 3.5 L Chloride 99 Carbon Dioxide 34 H Anion Gap 8 BUN 93 H Creatinine 2.36 H Est GFR ( Amer) 32 L Est GFR (Non-Af Amer) 27 L Glucose 159 H Calcium 8.6 Magnesium 2.0 Urine Color DARK YELLOW Urine Appearance SLIGHTLY-CLOUDY Urine pH 5.0 Ur Specific [place] 1.013 Urine Protein 30 H Urine Glucose (UA) 150 H Urine Ketones NEGATIVE Urine Blood LARGE H Urine Nitrite NEGATIVE Ur Leukocyte Esterase SMALL H Urine WBC (Auto) 12 Urine RBC (Auto) >182 11/12/17 11/14/17 23:18 14:21 Troponin I 0.045 NT-Pro-B Natriuret Pep 2810 H EKG Comments: Telemetry strip shows atrial paced rhythm. Impressions: Chest X-Ray 11/12/17 18:15 IMPRESSION: HEART ENLARGED WITHOUT FAILURE. NO OTHER SIGNIFICANT RADIOGRAPHIC FINDING IN THE CHEST. 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 transplanted heart: [place] heart Associated angina: angina presence unspecified Qualified Code(s): I25.10 - Atherosclerotic heart disease of [place] coronary artery without angina pectoris Is this a current diagnosis for this admission?: Yes (4) DM type 2 (diabetes mellitus, type 2) Qualifiers: Diabetes mellitus complication status: with unspecified complications Diabetes mellitus termite treater helper insulin use: unspecified termite treater helper insulin use status Qualified Code(s): E11.8 - Type 2 diabetes mellitus with unspecified complications Is this a current diagnosis for this admission?: Yes (5) Hyperlipidemia Qualifiers: Hyperlipidemia type: unspecified Qualified Code(s): E78.5 - Hyperlipidemia , unspecified Is this a current diagnosis for this admission?: Yes (6) Hypertension Qualifiers: Hypertension type: essential hypertension Qualified Code(s): I10 - Essential (primary) hypertension Is this a current diagnosis for this admission?: Yes (7) PVD (peripheral vascular disease) Is this a current diagnosis for this admission?: Yes (8) History of implantable cardioverter-defibrillator (ICD) placement Is this a current diagnosis for this admission?: Yes - Notes Notes: CHF exacerbation: Continue with current regimen. Patient was on entresto but this got discontinued for unknown reason. Consider restarting it. It was ordered by ink jet operator. COPD: Agree with current management plans. Patient has been seen by algebraist and management has been optimized. Patient understands that he needs to use intermittent positive pressure ventilation whenever he is trying to sleep. Coronary artery disease: Currently symptomatically stable without any angina symptoms. Diabetes: Recommend good management of diabetes but avoid any hypo-or hyperglycemia. Chronic kidney disease: Significant stage IV. Patient being followed by ink jet operator. Hypertension: Blood pressure goal should be 135/85 or less but could well be more liberal in this patient because of Multiple other comorbidities. PVD with wound infection: Recommend vascular surgery consultation, wound care consultation. History of ICD placement: Telemetry strips shows a paced rhythm. Patient advised to make a follow-up appointment with both vascular surgeon in [place] and seamstress fitter in [place] for PVD and pacemaker/ defibrillator battery change out. General debility: Patient will benefit from physical therapy, patient is excited to work with them. I believe this is holding up discharge. As patient claims that he is likely to go home if he can walk. - Time Time with patient: Greater than 35 minutes - CODE STATUS was discussed, patient remains full code. Surrogate decision-maker unchanged. Multiple medical problems were addressed. More than 50% of the time spent coordinating care, discussing management plans with involved caregivers. Management plans discussed with involved personnels. Medical decision making was of moderate to high complexity, patient's has multiple comorbidities. Medications reviewed and adjusted accordingly: Yes
--- NOTE | 2017-11-24 14:56 | PDOC PROGRESS REPORT ---
Subjective Progress Note for:: 11/24/17 Subjective:: Patient was readmitted shortly after being discharged on 11/12/2017. Patient presented with complaint of shortness of breath. Patient appear to be volume overloaded. Patient has history of CHF and CKD. Patient also has peripheral vascular disease. Providers are located in [place] however patient prefers to come here as it is closer to home. Patient states he is feeling better. Patient did work with PT today and is very tired. Patient is actually taking a nap. Reason For Visit: COPD EXCAERBATION Physical Exam Vital Signs: Temp Pulse Resp BP Pulse Ox 97.6 F 60 16 94/43 L 99 11/24/17 12:25 11/24/17 14:00 11/24/17 13:51 11/24/17 12:25 11/24/17 13:51 Intake & Output 11/23/17 11/24/17 11/25/17 06:59 06:59 06:59 Intake Total 2020 804 350 Output Total 3600 3485 900 Balance -1580 -1091 -550 Weight 117.5 kg 116.3 kg General appearance: PRESENT: no acute distress, obese Head exam: PRESENT: normocephalic Eye exam: PRESENT: EOMI. ABSENT: scleral icterus Ear exam: PRESENT: normal external ear exam Mouth exam: PRESENT: moist Neck exam: ABSENT: carotid bruit, JVD, lymphadenopathy, thyromegaly Respiratory exam: PRESENT: clear to auscultation dipti. ABSENT: rales, rhonchi, wheezes Cardiovascular exam: PRESENT: RRR. ABSENT: diastolic murmur, rubs, systolic murmur Pulses: PRESENT: normal dorsalis pedis pul Vascular exam: PRESENT: normal capillary refill GI/Abdominal exam: PRESENT: normal bowel sounds, soft. ABSENT: distended, guarding, mass, organolmegaly, rebound, tenderness Rectal exam: PRESENT: deferred Extremities exam: PRESENT: full ROM, +2 edema, other - Patient with generalized edema but improving. ABSENT: calf tenderness, clubbing, pedal edema Musculoskeletal exam: PRESENT: other - Left lower extremity prosthesis Neurological exam: PRESENT: alert, awake, oriented to person, oriented to place , oriented to time, oriented to situation, CN II-XII grossly intact. ABSENT: motor sensory deficit Psychiatric exam: PRESENT: appropriate affect, normal mood. ABSENT: homicidal ideation, suicidal ideation Skin exam: PRESENT: dry, intact, warm, other - Skin tears on the arm. Also on the right lower extremity. ABSENT: cyanosis, rash Results Laboratory Results: 11/24/17 06:25 11/24/17 06:25 11/23/17 11/24/17 11/24/17 20:00 06:25 06:25 WBC 8.4 RBC 3.35 L Hgb 10.5 L Hct 30.4 L MCV 91 MCH 31.3 MCHC 34.5 RDW 18.1 H Plt Count 102 L Seg Neutrophils % Not Reportable Lymphocytes % Not Reportable Monocytes % Not Reportable Eosinophils % Not Reportable Basophils % Not Reportable Absolute Neutrophils Not Reportable Absolute Lymphocytes Not Reportable Absolute Monocytes Not Reportable Absolute Eosinophils Not Reportable Absolute Basophils Not Reportable Sodium 140.8 Potassium 3.5 L Chloride 99 Carbon Dioxide 34 H Anion Gap 8 BUN 93 H Creatinine 2.36 H Est GFR ( Amer) 32 L Est GFR (Non-Af Amer) 27 L Glucose 159 H Calcium 8.6 Magnesium 2.0 Urine Color DARK YELLOW Urine Appearance SLIGHTLY-CLOUDY Urine pH 5.0 Ur Specific [place] 1.013 Urine Protein 30 H Urine Glucose (UA) 150 H Urine Ketones NEGATIVE Urine Blood LARGE H Urine Nitrite NEGATIVE Ur Leukocyte Esterase SMALL H Urine WBC (Auto) 12 Urine RBC (Auto) >182 11/12/17 11/14/17 23:18 14:21 Troponin I 0.045 NT-Pro-B Natriuret Pep 2810 H Impressions: Chest X-Ray 11/12/17 18:15 IMPRESSION: HEART ENLARGED WITHOUT FAILURE. NO OTHER SIGNIFICANT RADIOGRAPHIC FINDING IN THE CHEST. Assessment & Plan - Diagnosis (1) Combined systolic and diastolic congestive heart failure Qualifiers: Heart failure chronicity: acute on chronic Qualified Code(s): I50.43 - Acute on chronic combined systolic (congestive) and diastolic (congestive) heart failure Is this a current diagnosis for this admission?: Yes Plan: Patient with a EF of 30-35% also a grade 2 diastolic dysfunction. Patient now on Lasix and metolazone. Bumex was discontinued as there is a shortage. Patient was started on entresto by cardiology patient also on metoprolol. Edema improved although still significant. He is maintaining a negative fluid balance. Cardiology following. Patient was advised to to go to [place] following discharge to have his defibrillator battery changed. Monitor for symptomatic hypotension. (2) COPD exacerbation Is this a current diagnosis for this admission?: Yes Plan: Patient with COPD exacerbation. Patient on prednisone, Daliresp, Xopenex and budesonide. Pulmonology consulted and following. Wean prednisone as tolerated. (3) Chronic atrial fibrillation Is this a current diagnosis for this admission?: Yes Plan: Patient with chronic atrial fibrillation. Patient currently on Multaq, metoprolol and anticoagulated with Coumadin. Patient appears to be well controlled. (4) Urinary retention due to benign prostatic hyperplasia Is this a current diagnosis for this admission?: Yes Plan: Having urinary retention secondary to BPH. Patient has Ang in place. Patient having good urinary output. We will continue Flomax. (5) Anemia in chronic kidney disease Qualifiers: Chronic kidney disease stage: stage 3 (moderate) Qualified Code(s): N18.3 - Chronic kidney disease, stage 3 (moderate); D63.1 - Anemia in chronic kidney disease; D63.1 - Anemia in chronic kidney disease Is this a current diagnosis for this admission?: Yes Plan: Patient with a hemoglobin of 10.5 which appears to be stable. Possibly be due to his CKD. (6) Acute kidney injury superimposed on CKD Is this a current diagnosis for this admission?: Yes Plan: Patient has acute on chronic CKD stage III. Renal function appears stable. Continue to monitor. Nephrology is following closely. (7) Acute on chronic respiratory failure with hypoxia and hypercapnia Is this a current diagnosis for this admission?: Yes Plan: Patient is wearing BiPAP at night. (8) CAD (coronary artery disease) Qualifiers: Coronary Disease-Associated Artery/Lesion type: unspecified vessel or lesion type [place] vs. transplanted heart: [place] heart Associated angina: angina presence unspecified Qualified Code(s): I25.10 - Atherosclerotic heart disease of [place] coronary artery without angina pectoris Plan: Patient currently on beta-stalin aspirin and statin. Patient appears stable from a cardiac standpoint. (9) Chronic anticoagulation Is this a current diagnosis for this admission?: Yes Plan: Patient on Coumadin. Patient is currently therapeutic at 2.09. Continue to monitor. (10) Chronic idiopathic thrombocytopenia Is this a current diagnosis for this admission?: Yes Plan: Appears stable will monitor. (11) Diabetes type 2, uncontrolled Qualifiers: Diabetes mellitus complication status: with hyperglycemia Diabetes mellitus skilled nursing insulin use: with longitudinal float operator use Qualified Code(s): E11.65 - Type 2 diabetes mellitus with hyperglycemia; Z79.4 - [facility] (current) use of insulin; Z79.4 - [facility] (current) use of insulin; Z79.4 - superintendent container terminal ( current) use of insulin; Z79.4 - [facility] (current) use of insulin Is this a current diagnosis for this admission?: Yes Plan: Continue current regimen and adjust accordingly. Patient is on oral steroids which may cause difficulty with controlling his blood glucose. (12) PVD (peripheral vascular disease) Is this a current diagnosis for this admission?: Yes Plan: Patient is normally followed up in [place]. Patient did discuss the case with hospitalist at [facility]. Unfortunately we were not unable to complete the ankle-brachial ratio tests due to the wounds on his right lower extremity. Plan is to have patient follow-up as outpatient with Dr. Urban [facility]. (13) Debility Is this a current diagnosis for this admission?: Yes Plan: Patient did work with PT and stated it went well. - Time Time Spent with patient: Less than 15 minutes Anticipated discharge: Home Within: within 72 hours - Inpatient Certification Medical Necessity: Significant Comorbidiites Make Outpatient Treatment Too Risky , Need Close Monitoring Due to Risk of Patient Decompensation, Other - Still with significant amounts of fluid. Patient diuresing over a liter every day.
--- NOTE | 2017-11-24 16:04 | PDOC PROGRESS REPORT ---
Subjective Progress Note for:: 11/24/17 Reason For Visit: Seen today.Generally feeling better.Breathing is much improved.No c/o chest pains, fever or chills. Says did some ambulation. Lab and medications reviewed. Physical Exam Vital Signs: Temp Pulse Resp BP Pulse Ox 97.6 F 60 16 94/43 L 99 11/24/17 12:25 11/24/17 14:00 11/24/17 13:51 11/24/17 12:25 11/24/17 13:51 Intake & Output 11/23/17 11/24/17 11/25/17 06:59 06:59 06:59 Intake Total 2019 804 350 Output Total 3600 0368 900 Balance -3117 -8561 -567 Weight 117.5 kg 116.3 kg General appearance: PRESENT: no acute distress Respiratory exam: PRESENT: clear to auscultation dipti. ABSENT: crackles, rhonchi Cardiovascular exam: PRESENT: irregular rhythm, +S1, +S2 GI/Abdominal exam: PRESENT: normal bowel sounds, soft. ABSENT: ascites, organomegaly, tenderness Extremities exam: PRESENT: +1 edema Neurological exam: PRESENT: alert, awake, oriented to person, oriented to place Results Laboratory Results: 11/24/17 06:25 11/24/17 06:25 11/23/17 11/24/17 11/24/17 20:00 06:25 06:25 WBC 8.4 RBC 3.35 L Hgb 10.5 L Hct 30.4 L MCV 91 MCH 31.3 MCHC 34.5 RDW 18.1 H Plt Count 102 L Seg Neutrophils % Not Reportable Lymphocytes % Not Reportable Monocytes % Not Reportable Eosinophils % Not Reportable Basophils % Not Reportable Absolute Neutrophils Not Reportable Absolute Lymphocytes Not Reportable Absolute Monocytes Not Reportable Absolute Eosinophils Not Reportable Absolute Basophils Not Reportable Sodium 140.8 Potassium 3.5 L Chloride 99 Carbon Dioxide 34 H Anion Gap 8 BUN 93 H Creatinine 2.36 H Est GFR ( Amer) 32 L Est GFR (Non-Af Amer) 27 L Glucose 159 H Calcium 8.6 Magnesium 2.0 Urine Color DARK YELLOW Urine Appearance SLIGHTLY-CLOUDY Urine pH 5.0 Ur Specific [place] 1.013 Urine Protein 30 H Urine Glucose (UA) 150 H Urine Ketones NEGATIVE Urine Blood LARGE H Urine Nitrite NEGATIVE Ur Leukocyte Esterase SMALL H Urine WBC (Auto) 12 Urine RBC (Auto) >182 11/12/17 11/14/17 23:18 14:21 Troponin I 0.045 NT-Pro-B Natriuret Pep 2810 H Impressions: Chest X-Ray 11/12/17 18:15 IMPRESSION: HEART ENLARGED WITHOUT FAILURE. NO OTHER SIGNIFICANT RADIOGRAPHIC FINDING IN THE CHEST. Assessment & Plan - Diagnosis (1) Acute kidney injury superimposed on CKD Is this a current diagnosis for this admission?: Yes Plan: He has pre renal CHF exacerberation causing his MYLES on top of his underlying CKD 3 likely from Diabetic nephropathy. He has relatively stable renal nos on the current medications. No acute indications for POOL PLAYER. OK to discharge from a renal point and will see him as OP. (2) Chronic kidney disease, stage 3 Is this a current diagnosis for this admission?: Yes Plan: Now with MYLES on CKD 3 and stable . Non Oliguric. Relatively stable.NO acute indication for POOL PLAYER. (3) Acute on chronic systolic heart failure Is this a current diagnosis for this admission?: Yes Plan: Patient has bi ventricular failre/CMP. Currently admitted with acute on chronic insult and improving on current management.Off the Saccubutril/valsartan combo because of hypotension. (4) Acute respiratory failure with hypoxia Plan: Improving with resolution of his Acute CHF. (5) Diabetes type 2, uncontrolled Qualifiers: Diabetes mellitus complication status: with hyperglycemia Diabetes mellitus care home insulin use: with care home use Qualified Code(s): E11.65 - Type 2 diabetes mellitus with hyperglycemia; Z79.4 - joint terminal attack controller (current) use of insulin; Z79.4 - joint terminal attack controller (current) use of insulin; Z79.4 - joint terminal attack controller ( current) use of insulin; Z79.4 - USP (current) use of insulin Is this a current diagnosis for this admission?: Yes Plan: Adv on need for tight diabetic control. (6) Obesity (BMI 30.0-34.9) Is this a current diagnosis for this admission?: Yes Plan: Adv on weight loss with respect to blood sugars. (7) Hypokalemia Is this a current diagnosis for this admission?: Yes Plan: Increase replacements. Monitor. (8) Blisters of multiple sites Is this a current diagnosis for this admission?: Yes (9) Hypotension Qualifiers: Hypotension type: other hypotension type Qualified Code(s): I95.89 - Other hypotension Plan: Stopping saccubutril/valsartan and monitor.Might needa simple raas stalin instead prior to discharge after seeing BP response.
[2017-11-24] MEDS: FINASTERIDE 5 MG TABLET PO SCH (22:34)
[2017-11-24] MEDS: ATORVASTATIN CALCIUM 40 MG TABLET PO SCH (22:35)
[2017-11-24] MEDS: TAMSULOSIN HCL 0.4 MG CAP.SR.24H PO SCH (22:35)
[2017-11-24] MEDS: METOPROLOL SUCCINATE 25 MG TAB.SR.24H PO SCH (22:35)
[2017-11-24] MEDS: MONTELUKAST SODIUM 10 MG TABLET PO SCH (22:37)
[2017-11-24] MEDS: INSULIN GLARGINE,HUM.REC.ANLOG 300 UNIT/3 ML INSULN.PEN SUBCUT SCH (22:37)
[2017-11-24] MEDS: SILVER SULFADIAZINE 1% CREAM 25 GM TP SCH (22:38)
[2017-11-25] MEDS: OXYCODONE-ACETAMINOPHEN 5-325 MG TABLET PO PRN ×6 (00:24→22:06)
[2017-11-25] MEDS: LEVALBUTEROL HCL NEB 1.25 MG/3 ML AMPUL NEB SCH ×3 (01:51→14:04)
[2017-11-25] MEDS: LANSOPRAZOLE 30 MG TAB.RAP.DR PO SCH (06:29)
[2017-11-25 07:22] LABS: ANION GAP 7 (5-19); BLOOD UREA NITROGEN 92 mg/dL (7-20); CALCIUM 8.8 mg/dL (8.4-10.2); CARBON DIOXIDE 35 mmol/L (22-30); CHLORIDE 100 mmol/L (98-107); GLUCOSE 200 mg/dL (75-110); POTASSIUM 3.9 mmol/L (3.6-5.0)
[2017-11-25] MEDS: INSULIN REG, HUMAN 100 UNIT/ML 3 ML VIAL (PYX) SUBCUT PRN ×2 (08:11→16:36)
[2017-11-25] MEDS: BUDESONIDE NEB 0.5 MG/2 ML AMPUL NEB SCH (08:58)
[2017-11-25] MEDS: FUROSEMIDE INJ/PF 40 MG/4 ML SDV IV SCH ×2 (11:03→22:07)
[2017-11-25] MEDS: POTASSIUM CHLORIDE 10 MEQ TABLET.SA PO SCH ×2 (11:03→22:05)
[2017-11-25] MEDS: PREDNISONE 20 MG TABLET PO SCH (11:03)
[2017-11-25] MEDS: ISOSORBIDE MONONITRATE 30 MG TAB.ER.24H PO SCH (11:04)
[2017-11-25] MEDS: ROFLUMILAST 500 MCG TABLET PO SCH (11:04)
[2017-11-25] MEDS: MULTIVITAMIN TABLET PO SCH (11:04)
[2017-11-25] MEDS: SENNOSIDES/DOCUSATE 8.6-50 MG 1 EACH TABLET PO SCH ×2 (11:04→17:01)
[2017-11-25] MEDS: ASPIRIN 81 MG TABLET, ENT COATED PO SCH (11:04)
[2017-11-25] MEDS: CHOLECALCIFEROL (D3) 400 UNIT TABLET PO SCH (11:04)
[2017-11-25] MEDS: PREGABALIN 75 MG CAPSULE PO SCH ×2 (11:05→22:04)
[2017-11-25] MEDS: RANOLAZINE 500 MG TAB.SR.12H PO SCH ×2 (11:05→22:03)
[2017-11-25] MEDS: NITROGLYCERIN 2.5 MG (0.1 MG/HR) PATCH.TD24 TD SCH (11:05)
[2017-11-25] MEDS: DRONEDARONE HYDROCHLORIDE 400 MG TABLET PO SCH ×2 (11:05→22:16)
[2017-11-25] MEDS: ALLOPURINOL 300 MG TABLET PO SCH (11:06)
[2017-11-25] MEDS: MAGNESIUM OXIDE 400 MG TABLET PO SCH ×2 (11:06→17:01)
[2017-11-25] MEDS: METOLAZONE 5 MG TABLET PO SCH (11:06)
--- NOTE | 2017-11-25 14:08 | PDOC PROGRESS REPORT ---
Subjective Progress Note for:: 11/25/17 Subjective:: Patient seen on morning rounds. Patient claims to be feeling better with reduced swelling of his upper extremity. Swelling in the right lower extremity is also reduced. Patient is denying any chest, neck discomfort. He has some baseline shortness of breath but denied any worsening. Patient just feels generally weak. Patient claims he is ready to go home but need to be able to walk before he can be discharged. Patient claims to be doing better. Patient claims that he is working with physical therapy now. Patient is atrial paced rhythm. No sustained tachycardia or bradycardia arrhythmias noted. Review of systems: Rest review of systems negative. Medications: Medications have been reviewed. Reason For Visit: COPD EXCAERBATION Physical Exam Vital Signs: Temp Pulse Resp BP Pulse Ox 97.6 F 57 L 18 118/39 L 100 11/25/17 12:46 11/25/17 12:46 11/25/17 12:46 11/25/17 12:46 11/25/17 12:46 Intake & Output 11/24/17 11/25/17 11/26/17 06:59 06:59 06:59 Intake Total 804 962 236 Output Total 2475 4450 1500 Balance -8667 -8096 -1264 Weight 116.3 kg 115.9 kg Exam: GENERAL: well-nourished and comfortable in no acute. Alert and oriented x3 HEAD: Atraumatic, normocephalic. EYES: Pupils equal round and reactive to light, extraocular movements intact, sclera anicteric, conjunctiva are normal. ENT: TMs normal, nares patent, oropharynx clear without exudates. Moist mucous membranes. No oral ulcerations or bleeding gums noted NECK: supple without lymphadenopathy. Trachea is central. No cervical or axillary lymphadenopathy noted. Carotids are 2+, JVD not elevated LUNGS: Respiration seems nonlabored, no significant accessory muscle action noted. Bilateral coarse crackles noted. Mild wheezes rales or rhonchi noted. No significant dullness noted on percussion. CHEST: Palpation of the chest wall shows no significant chest wall tenderness. No other significant abnormalities noted. HEART: [place] P D DRIVER, No PSH, 1/6 MAGGIE aortic area, 1/6 recinos systolic murmur mitral area, no rubs, no gallops. ABDOMEN: Soft, no significant tenderness appreciated, normoactive bowel sounds. No guarding, no rebound. No rigidity noted . No masses appreciated. EXTREMITIES: left below the knee amputation. The right leg has wound that is is covered up. 1+ edema noted of the right lower extremity with some superficial ulcerations. NEUROLOGICAL: Focused neurological exam showed no significant neurologic deficit. Normal speech, no focal weakness appreciated. PSYCH: Normal mood, normal affect. Judgment and insight within normal limits. SKIN: No significant ecchymosis, rash, signs of pruritus noted. Patient does have some ulcerations, which is superficial and covered with bandages. MUSCULOSKELETAL EXAM: No significant joint swelling noted. Results Laboratory Results: 11/24/17 06:25 11/25/17 06:25 11/25/17 06:25 Sodium 142.0 Potassium 3.9 Chloride 100 Carbon Dioxide 35 H Anion Gap 7 BUN 92 H Creatinine 2.16 H Est GFR ( Amer) 36 L Est GFR (Non-Af Amer) 30 L Glucose 200 H Calcium 8.8 Magnesium 2.0 11/12/17 11/14/17 23:18 14:21 Troponin I 0.045 NT-Pro-B Natriuret Pep 2810 H EKG Comments: Atrial paced rhythm. Impressions: Chest X-Ray 11/12/17 18:15 IMPRESSION: HEART ENLARGED WITHOUT FAILURE. NO OTHER SIGNIFICANT RADIOGRAPHIC FINDING IN THE CHEST. Assessment & Plan - Diagnosis (1) CHF exacerbation Is this a current diagnosis for this admission?: Yes (2) COPD (chronic obstructive pulmonary disease) Qualifiers: COPD type: emphysema Emphysema type: unspecified Qualified Code(s): J43.9 - Emphysema, unspecified Is this a current diagnosis for this admission?: Yes (3) Coronary artery disease Qualifiers: Coronary Disease-Associated Artery/Lesion type: unspecified vessel or lesion type [place] vs. transplanted heart: [place] heart Associated angina: angina presence unspecified Qualified Code(s): I25.10 - Atherosclerotic heart disease of [place] coronary artery without angina pectoris Is this a current diagnosis for this admission?: Yes (4) DM type 2 (diabetes mellitus, type 2) Qualifiers: Diabetes mellitus complication status: with unspecified complications Diabetes mellitus terminal make up operator insulin use: unspecified custodial insulin use status Qualified Code(s): E11.8 - Type 2 diabetes mellitus with unspecified complications Is this a current diagnosis for this admission?: Yes (5) Hyperlipidemia Qualifiers: Hyperlipidemia type: unspecified Qualified Code(s): E78.5 - Hyperlipidemia , unspecified Is this a current diagnosis for this admission?: Yes (6) Hypertension Qualifiers: Hypertension type: essential hypertension Qualified Code(s): I10 - Essential (primary) hypertension Is this a current diagnosis for this admission?: Yes (7) PVD (peripheral vascular disease) Is this a current diagnosis for this admission?: Yes (8) History of implantable cardioverter-defibrillator (ICD) placement Is this a current diagnosis for this admission?: Yes - Notes Notes: CHF exacerbation: Continue with current regimen. Patient was on entresto but this got discontinued for unknown reason. Consider restarting it. It was ordered by manager dialysis. Nephrology has not made any new recommendation regarding this medication. COPD: Agree with current management plans. Patient has been seen by plastic parts fabricator and management has been optimized. Patient understands that he needs to use intermittent positive pressure ventilation whenever he is trying to sleep. No change in Coronary artery disease: Currently symptomatically stable without any angina symptoms. Diabetes: Recommend good management of diabetes but avoid any hypo-or hyperglycemia. Chronic kidney disease: Significant stage IV. Patient being followed by manager dialysis. Hypertension: Blood pressure goal should be 135/85 or less but could well be more liberal in this patient because of Multiple other comorbidities. PVD with wound infection: Recommend vascular surgery consultation, wound care consultation. History of ICD placement: Telemetry strips shows a paced rhythm. Patient claims he has a follow-up appointment in [place] to have defibrillator battery change out on discharge from here. General debility: Patient will benefit from physical therapy, patient now claims that he is expecting to be discharged on Wednesday. - Time Time with patient: 15-25 minutes - CODE STATUS was discussed, patient remains full code. Surrogate decision-maker unchanged. Multiple medical problems were addressed. More than 50% of the time spent coordinating care, discussing management plans with involved caregivers. Management plans discussed with involved personnels. Medical decision making was of moderate to high complexity , patient's has multiple comorbidities. Medications reviewed and adjusted accordingly: Yes
--- NOTE | 2017-11-25 16:13 | PDOC PROGRESS REPORT ---
Subjective Progress Note for:: 11/25/17 Subjective:: Patient was sitting up in his chair that was at his bedside. At the time he denied SOB while sitting there. He said that PT came yesterday and helped him stand at his bedside. He says he currently can not walk is concerned that if he is discharged that he would not be able to take care of himself. Reason For Visit: COPD EXCAERBATION Physical Exam Vital Signs: Temp Pulse Resp BP Pulse Ox 97.6 F 62 18 118/39 L 100 11/25/17 12:46 11/25/17 14:04 11/25/17 14:04 11/25/17 12:46 11/25/17 14:04 Intake & Output 11/24/17 11/25/17 11/26/17 06:59 06:59 06:59 Intake Total 804 962 236 Output Total 8375 4450 1500 Balance -8625 -3488 -1264 Weight 116.3 kg 115.9 kg General appearance: PRESENT: no acute distress, well-developed, well-nourished Mouth exam: PRESENT: moist, neck supple Respiratory exam: PRESENT: crackles, rales, rhonchi, wheezes. ABSENT: accessory muscle use, clear to auscultation dipti Cardiovascular exam: PRESENT: irregular rhythm, +S1, +S2 GI/Abdominal exam: PRESENT: normal bowel sounds, soft. ABSENT: ascites, organomegaly, tenderness Extremities exam: PRESENT: pedal edema, tenderness, +1 edema Musculoskeletal exam: PRESENT: tenderness. ABSENT: normal inspection Neurological exam: PRESENT: alert, awake, oriented to person, oriented to place , oriented to time, oriented to situation Psychiatric exam: PRESENT: appropriate affect, normal mood Skin exam: PRESENT: dry, warm. ABSENT: intact, skin tears Results Laboratory Results: 11/24/17 06:25 11/25/17 06:25 11/25/17 06:25 Sodium 142.0 Potassium 3.9 Chloride 100 Carbon Dioxide 35 H Anion Gap 7 BUN 92 H Creatinine 2.16 H Est GFR ( Amer) 36 L Est GFR (Non-Af Amer) 30 L Glucose 200 H Calcium 8.8 Magnesium 2.0 11/12/17 11/14/17 23:18 14:21 Troponin I 0.045 NT-Pro-B Natriuret Pep 2810 H Impressions: Chest X-Ray 11/12/17 18:15 IMPRESSION: HEART ENLARGED WITHOUT FAILURE. NO OTHER SIGNIFICANT RADIOGRAPHIC FINDING IN THE CHEST. Assessment & Plan - Diagnosis (1) Acute on chronic systolic heart failure Is this a current diagnosis for this admission?: Yes Plan: looks to be improving on current bumex dose. Continue on current medications (2) Anasarca Is this a current diagnosis for this admission?: Yes Plan: improving, continue on current medications (3) Acute kidney injury superimposed on CKD Is this a current diagnosis for this admission?: Yes Plan: improving, creatinine is almost down to baseline of 1.8, kidney function is stable and at this point can be managed as outpatient (4) Chronic kidney disease, stage 3 Is this a current diagnosis for this admission?: Yes Plan: 1.8 baseline (5) Anemia Qualifiers: Other causes of anemia: chronic disease, other Is this a current diagnosis for this admission?: Yes Plan: remaining stable in the 10s. (6) Hypertension Qualifiers: Hypertension type: essential hypertension Qualified Code(s): I10 - Essential (primary) hypertension Is this a current diagnosis for this admission?: Yes Plan: stable at the low end of normal, recently had entresto removed from medications (7) Acute on chronic respiratory failure with hypoxia and hypercapnia Is this a current diagnosis for this admission?: Yes Plan: resolving (8) COPD with acute exacerbation Is this a current diagnosis for this admission?: Yes (9) Blisters of multiple sites Is this a current diagnosis for this admission?: Yes (10) Diabetes type 2, uncontrolled Qualifiers: Diabetes mellitus complication status: with hyperglycemia Diabetes mellitus intermodal customer service insulin use: with intermodal customer service use Qualified Code(s): E11.65 - Type 2 diabetes mellitus with hyperglycemia; Z79.4 - senior care (current) use of insulin; Z79.4 - senior care (current) use of insulin; Z79.4 - senior care ( current) use of insulin; Z79.4 - senior care (current) use of insulin Is this a current diagnosis for this admission?: Yes (11) Debility Is this a current diagnosis for this admission?: Yes Plan: currently working with PT. - Notes Notes: Patients case was reviewed and discussed with Dr. Mcdonald.
--- NOTE | 2017-11-25 17:16 | PDOC PROGRESS REPORT ---
Subjective Progress Note for:: 11/25/17 Subjective:: Patient states that he feels better. He anticipates to be discharged on Wednesday so he can go to the concrete pavement installer's office and have his pacer checked. Accordingly had gone off about 5 times and is very painful. He refers that in his physical therapy because he is weak and cannot stand Review of systems All organ systems evaluated and negative except as in subjective All laboratories and significant diagnostics have been reviewed Reason For Visit: COPD EXCAERBATION Physical Exam Vital Signs: Temp Pulse Resp BP Pulse Ox 97.4 F 103 H 20 96/37 L 95 11/25/17 03:31 11/25/17 03:31 11/25/17 03:31 11/25/17 03:31 11/25/17 03:31 Intake & Output 11/24/17 11/25/17 11/26/17 06:59 06:59 06:59 Intake Total 804 962 Output Total 2475 4450 Balance -1671 -3765 Weight 116.3 kg 115.9 kg General appearance: PRESENT: cooperative, obese Head exam: PRESENT: atraumatic, normocephalic Eye exam: PRESENT: conjunctiva pink, EOMI, PERRLA Mouth exam: PRESENT: moist Neck exam: PRESENT: full ROM. ABSENT: JVD, lymphadenopathy, tenderness Respiratory exam: PRESENT: crackles, other - Adequate movement of air Cardiovascular exam: PRESENT: irregular rhythm. ABSENT: diastolic murmur, systolic murmur Vascular exam: PRESENT: normal capillary refill GI/Abdominal exam: PRESENT: normal bowel sounds, soft. ABSENT: tenderness Extremities exam: PRESENT: other - There is 2+ pitting edema extending to pelvic area. ABSENT: full ROM Musculoskeletal exam: PRESENT: deformity. ABSENT: ambulatory Neurological exam: PRESENT: alert, awake, oriented to person, oriented to place , oriented to time, oriented to situation Psychiatric exam: PRESENT: appropriate affect, normal mood Results Laboratory Results: 11/24/17 06:25 11/25/17 06:25 11/24/17 11/24/17 11/25/17 06:25 06:25 06:25 WBC 8.4 RBC 3.35 L Hgb 10.5 L Hct 30.4 L MCV 91 MCH 31.3 MCHC 34.5 RDW 18.1 H Plt Count 102 L Seg Neutrophils % Not Reportable Lymphocytes % Not Reportable Monocytes % Not Reportable Eosinophils % Not Reportable Basophils % Not Reportable Absolute Neutrophils Not Reportable Absolute Lymphocytes Not Reportable Absolute Monocytes Not Reportable Absolute Eosinophils Not Reportable Absolute Basophils Not Reportable Sodium 140.8 142.0 Potassium 3.5 L 3.9 Chloride 99 100 Carbon Dioxide 34 H 35 H Anion Gap 8 7 BUN 93 H 92 H Creatinine 2.36 H 2.16 H Est GFR ( Amer) 32 L 36 L Est GFR (Non-Af Amer) 27 L 30 L Glucose 159 H 200 H Calcium 8.6 8.8 Magnesium 2.0 2.0 11/12/17 11/14/17 23:18 14:21 Troponin I 0.045 NT-Pro-B Natriuret Pep 2810 H Impressions: Chest X-Ray 11/12/17 18:15 IMPRESSION: HEART ENLARGED WITHOUT FAILURE. NO OTHER SIGNIFICANT RADIOGRAPHIC FINDING IN THE CHEST. Assessment & Plan - Diagnosis (1) Skin tear Is this a current diagnosis for this admission?: Yes Plan: Talk to patient's nurse to apply foam dressing to skin tear of right lower extremity (2) Weakness Is this a current diagnosis for this admission?: Yes Plan: Continue physical therapy in order CT of the head without contrast (3) Acute on chronic renal failure Qualifiers: Chronic kidney disease stage: stage 3 (moderate) Is this a current diagnosis for this admission?: Yes Plan: Appears to baseline however will keep trending since patient still got significant amount of swelling although it appears according to the chart and had improved (4) Anasarca Is this a current diagnosis for this admission?: Yes Plan: Improved (5) Anemia in chronic kidney disease Qualifiers: Chronic kidney disease stage: stage 3 (moderate) Qualified Code(s): N18.3 - Chronic kidney disease, stage 3 (moderate); D63.1 - Anemia in chronic kidney disease; D63.1 - Anemia in chronic kidney disease Is this a current diagnosis for this admission?: Yes Plan: Stable (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 Will increase Lasix to 60 mg IV every 12 hours (7) History of implantable cardioverter-defibrillator (ICD) placement Is this a current diagnosis for this admission?: Yes Plan: Patient will require follow-up with cardiology once is discharged (8) AICD discharge Is this a current diagnosis for this admission?: Yes Plan: Will need follow-up with cardiology (9) Acute and chronic respiratory failure Qualifiers: Respiratory failure complication: hypoxia and hypercapnia Qualified Code(s) : J96.21 - Acute and chronic respiratory failure with hypoxia; J96.22 - Acute and chronic respiratory failure with hypercapnia; J96.22 - Acute and chronic respiratory failure with hypercapnia; J96.22 - Acute and chronic respiratory failure with hypercapnia Is this a current diagnosis for this admission?: Yes Plan: Improved and stable back to baseline - Time Time Spent with patient: 15-24 minutes Medications reviewed and adjusted accordingly: Yes Anticipated discharge: Acute Rehab Within: within 48 hours - Inpatient Certification Based on my medical assessment, after consideration of the patient's comorbidities, presenting symptoms, or acuity I expect that the services needed warrant INPATIENT care.: Yes I certify that my determination is in accordance with my understanding of Medicare's requirements for reasonable and necessary INPATIENT services [42 CFR 412.3e].: Yes Medical Necessity: Need Close Monitoring Due to Risk of Patient Decompensation
--- NOTE | 2017-11-25 18:45 | RADIOLOGY REPORT (SQ) ---
EXAM DESCRIPTION: CT HEAD WITHOUT COMPLETED DATE/TIME: 11/25/2017 6:01 pm REASON FOR STUDY: weakness COMPARISON: 10/24/2017. TECHNIQUE: Axial images acquired through the brain without intravenous contrast. Images reviewed wi th bone, brain and subdural windows. Images stored on PACS. All CT scanners at this facility use dose modulation, iterative reconstruction, and/or weight based d osing when appropriate to reduce radiation dose to as low as reasonably achievable (ALARA). [facility]: Dose Right [facility]: CareDose [facility]: Dose Right [facility]: Teradose 4D [facility]: [employer] RADIATION DOSE: CT Rad equipment meets quality standard of care and radiation dose reduction techniq ues were employed. CTDIvol: 64.6 mGy. DLP: 1163 mGy-cm.mGy. LIMITATIONS: None. FINDINGS: VENTRICLES: Prominent. CEREBRUM: No masses. No hemorrhage. No midline shift. Areas of low density in the white matter mos t likely due to chronic micro-vascular ischemic change. No evidence for acute infarction. CEREBELLUM: No masses. No hemorrhage. No alteration of density. No evidence for acute infarction. EXTRAAXIAL SPACES: Age-related involutional change. No fluid collections. No masses. ORBITS AND GLOBE: No intra- or extraconal masses. Normal contour of globe without masses. CALVARIUM: No fracture. PARANASAL SINUSES: No fluid or mucosal thickening. SOFT TISSUES: No mass or hematoma. OTHER: No other significant finding. IMPRESSION: CHRONIC CHANGES OF ATROPHY AND MICROVASCULAR ISCHEMIA. NO ACUTE PROCESS. EVIDENCE OF ACUTE STROKE: NO. TECHNICAL DOCUMENTATION: JOB ID: [id number] Quality ID # [id number]: Final reports with documentation of one or more dose reduction techniques (e.g., Au tomated exposure control, adjustment of the mA and/or kV according to patient size, use of iterative reconstruction technique) 2010 [employer]- All Rights Reserved
[2017-11-25] MEDS ORDERED: INSULIN GLARGINE,HUM.REC.ANLOG 1,000 UNIT/10 ML UNIT SUBCUT ONE (22:01)
[2017-11-25] MEDS: INSULIN GLARGINE,HUM.REC.ANLOG 300 UNIT/3 ML INSULN.PEN SUBCUT SCH (22:03)
[2017-11-25] MEDS: FLUTICASONE/SALMETEROL DISKUS 500-50 MCG/DOSE IH SCH (22:04)
[2017-11-25] MEDS: ATORVASTATIN CALCIUM 40 MG TABLET PO SCH (22:05)
[2017-11-25] MEDS: MONTELUKAST SODIUM 10 MG TABLET PO SCH (22:05)
[2017-11-25] MEDS: FINASTERIDE 5 MG TABLET PO SCH (22:06)
[2017-11-25] MEDS: TAMSULOSIN HCL 0.4 MG CAP.SR.24H PO SCH (22:06)
[2017-11-25] MEDS: WARFARIN SODIUM 2 MG TABLET PO SCH (22:07)
[2017-11-25] MEDS: METOPROLOL SUCCINATE 25 MG TAB.SR.24H PO SCH (22:16)
[2017-11-25] MEDS: SILVER SULFADIAZINE 1% CREAM 25 GM TP SCH (23:31)
[2017-11-26] MEDS: OXYCODONE-ACETAMINOPHEN 5-325 MG TABLET PO PRN ×6 (02:06→23:33)
[2017-11-26] MEDS: LANSOPRAZOLE 30 MG TAB.RAP.DR PO SCH (06:08)
[2017-11-26 07:25] LABS: ANION GAP 8 (5-19); BLOOD UREA NITROGEN 83 mg/dL (7-20); CALCIUM 8.6 mg/dL (8.4-10.2); CARBON DIOXIDE 36 mmol/L (22-30); CHLORIDE 100 mmol/L (98-107); GLUCOSE 155 mg/dL (75-110); POTASSIUM 3.7 mmol/L (3.6-5.0)
[2017-11-26] MEDS ORDERED: PREDNISONE 20 MG TABLET PO SCH (10:00)
[2017-11-26] MEDS: MULTIVITAMIN TABLET PO SCH (10:42)
[2017-11-26] MEDS: MAGNESIUM OXIDE 400 MG TABLET PO SCH ×2 (10:42→17:22)
[2017-11-26] MEDS: RANOLAZINE 500 MG TAB.SR.12H PO SCH ×2 (10:43→22:58)
[2017-11-26] MEDS: POTASSIUM CHLORIDE 10 MEQ TABLET.SA PO SCH ×2 (10:44→22:58)
[2017-11-26] MEDS: ISOSORBIDE MONONITRATE 30 MG TAB.ER.24H PO SCH (10:49)
[2017-11-26] MEDS: CHOLECALCIFEROL (D3) 400 UNIT TABLET PO SCH (10:51)
[2017-11-26] MEDS: PREGABALIN 75 MG CAPSULE PO SCH ×2 (10:51→22:58)
[2017-11-26] MEDS: METOLAZONE 5 MG TABLET PO SCH (10:53)
[2017-11-26] MEDS: DRONEDARONE HYDROCHLORIDE 400 MG TABLET PO SCH ×2 (10:54→22:58)
[2017-11-26] MEDS: ASPIRIN 81 MG TABLET, ENT COATED PO SCH (10:56)
[2017-11-26] MEDS: ROFLUMILAST 500 MCG TABLET PO SCH (10:56)
[2017-11-26] MEDS ORDERED: PHYTONADIONE 5 MG TABLET PO ONE (11:00)
[2017-11-26] MEDS: ALLOPURINOL 300 MG TABLET PO SCH (11:00)
[2017-11-26] MEDS: TIOTROPIUM BROMIDE DPI 5 CAP/KIT (18 MCG/CAP) IH SCH (11:01)
[2017-11-26] MEDS: NITROGLYCERIN 2.5 MG (0.1 MG/HR) PATCH.TD24 TD SCH (11:02)
[2017-11-26] MEDS: FLUTICASONE/SALMETEROL DISKUS 500-50 MCG/DOSE IH SCH ×2 (11:06→22:59)
[2017-11-26] MEDS: FUROSEMIDE INJ/PF 40 MG/4 ML SDV IV SCH ×2 (12:01→22:59)
[2017-11-26] MEDS: SENNOSIDES/DOCUSATE 8.6-50 MG 1 EACH TABLET PO SCH ×2 (12:04→17:20)
--- NOTE | 2017-11-26 12:44 | PDOC PROGRESS REPORT ---
Subjective Progress Note for:: 11/26/17 Subjective:: Patient seen on morning rounds. Patient is denying any chest, neck discomfort. He has some baseline shortness of breath but denied any worsening. Patient just feels generally weak. Patient claims he is ready to go home but need to be able to walk before he can be discharged. Patient claims to be doing better. Patient claims that he is working with physical therapy now. Patient is atrial paced rhythm. No sustained tachycardia or bradycardia arrhythmias noted. Review of systems: Rest review of systems negative. Medications: Medications have been reviewed. Reason For Visit: COPD EXCAERBATION Physical Exam Vital Signs: Temp Pulse Resp BP Pulse Ox 97.7 F 59 L 19 113/46 L 100 11/26/17 07:13 11/26/17 07:13 11/26/17 07:13 11/26/17 07:13 11/26/17 08:26 Intake & Output 11/25/17 11/26/17 11/27/17 06:59 06:59 06:59 Intake Total 962 241 Output Total 4450 4850 Balance -3488 -4609 Weight 115.9 kg 115.6 kg Exam: GENERAL: well-nourished and comfortable in no acute. Alert and oriented x3 HEAD: Atraumatic, normocephalic. EYES: Pupils equal round and reactive to light, extraocular movements intact, sclera anicteric, conjunctiva are normal. ENT: TMs normal, nares patent, oropharynx clear without exudates. Moist mucous membranes. No oral ulcerations or bleeding gums noted NECK: supple without lymphadenopathy. Trachea is central. No cervical or axillary lymphadenopathy noted. Carotids are 2+, JVD not elevated LUNGS: Respiration seems nonlabored, no significant accessory muscle action noted. Bilateral coarse crackles noted. Mild wheezes rales or rhonchi noted. No significant dullness noted on percussion. CHEST: Palpation of the chest wall shows no significant chest wall tenderness. No other significant abnormalities noted. 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 ABDOMEN: Soft, no significant tenderness appreciated, normoactive bowel sounds. No guarding, no rebound. No rigidity noted . No masses appreciated. EXTREMITIES: left below the knee amputation. The right leg has wound that is is covered up. 1+ edema noted of the right lower extremity with some superficial ulcerations. NEUROLOGICAL: Focused neurological exam showed no significant neurologic deficit. Normal speech, no focal weakness appreciated. PSYCH: Normal mood, normal affect. Judgment and insight within normal limits. SKIN: No significant ecchymosis, rash, signs of pruritus noted. Patient does have some ulcerations, which is superficial and covered with bandages. MUSCULOSKELETAL EXAM: No significant joint swelling noted. Results Laboratory Results: 11/24/17 06:25 11/26/17 06:46 11/26/17 06:46 Sodium 144.0 Potassium 3.7 Chloride 100 Carbon Dioxide 36 H Anion Gap 8 BUN 83 H Creatinine 2.18 H Est GFR ( Amer) 35 L Est GFR (Non-Af Amer) 29 L Glucose 155 H Calcium 8.6 11/12/17 11/14/17 23:18 14:21 Troponin I 0.045 NT-Pro-B Natriuret Pep 2810 H Impressions: Chest X-Ray 11/12/17 18:15 IMPRESSION: HEART ENLARGED WITHOUT FAILURE. NO OTHER SIGNIFICANT RADIOGRAPHIC FINDING IN THE CHEST. Head CT 11/25/17 00:00 IMPRESSION: CHRONIC CHANGES OF ATROPHY AND MICROVASCULAR ISCHEMIA. NO ACUTE PROCESS. EVIDENCE OF ACUTE STROKE: NO. Assessment & Plan - Diagnosis (1) CHF exacerbation Is this a current diagnosis for this admission?: Yes (2) COPD (chronic obstructive pulmonary disease) Qualifiers: COPD type: emphysema Emphysema type: unspecified Qualified Code(s): J43.9 - Emphysema, unspecified Is this a current diagnosis for this admission?: Yes (3) Coronary artery disease Qualifiers: Coronary Disease-Associated Artery/Lesion type: unspecified vessel or lesion type [place] vs. transplanted heart: [place] heart Associated angina: angina presence unspecified Qualified Code(s): I25.10 - Atherosclerotic heart disease of [place] coronary artery without angina pectoris Is this a current diagnosis for this admission?: Yes (4) DM type 2 (diabetes mellitus, type 2) Qualifiers: Diabetes mellitus complication status: with unspecified complications Diabetes mellitus chcf insulin use: unspecified chcf insulin use status Qualified Code(s): E11.8 - Type 2 diabetes mellitus with unspecified complications Is this a current diagnosis for this admission?: Yes (5) Hyperlipidemia Qualifiers: Hyperlipidemia type: unspecified Qualified Code(s): E78.5 - Hyperlipidemia , unspecified Is this a current diagnosis for this admission?: Yes (6) Hypertension Qualifiers: Hypertension type: essential hypertension Qualified Code(s): I10 - Essential (primary) hypertension Is this a current diagnosis for this admission?: Yes (7) PVD (peripheral vascular disease) Is this a current diagnosis for this admission?: Yes (8) History of implantable cardioverter-defibrillator (ICD) placement Is this a current diagnosis for this admission?: Yes - Notes Notes: Patient some baseline shortness of breath. He is generally weak and tired. Will order a chest x-ray. This is to evaluate CHF. CHF exacerbation: Continue with current regimen. Patient was on entresto but this got discontinued for unknown reason. Consider restarting it. It was ordered by grip assembler. Nephrology has not made any new recommendation regarding this medication. COPD: Agree with current management plans. Patient has been seen by sole leveler and management has been optimized. Patient understands that he needs to use intermittent positive pressure ventilation whenever he is trying to sleep. No change in Coronary artery disease: Currently symptomatically stable without any angina symptoms. Diabetes: Recommend good management of diabetes but avoid any hypo-or hyperglycemia. Chronic kidney disease: Significant stage IV. Patient being followed by grip assembler. Hypertension: Blood pressure goal should be 135/85 or less but could well be more liberal in this patient because of Multiple other comorbidities. PVD with wound infection: Recommend vascular surgery consultation, wound care consultation. History of ICD placement: Telemetry strips shows a paced rhythm. Patient claims he has an appointment for defibrillator battery change out on discharge from here. General debility: Patient will benefit from physical therapy, patient now claims that he is expecting to be discharged on Wednesday. These recommendations remain. - Time Time with patient: 15-25 minutes - CODE STATUS was discussed, patient remains full code. Surrogate decision-maker unchanged. Multiple medical problems were addressed. More than 50% of the time spent coordinating care, discussing management plans with involved caregivers. Management plans discussed with involved personnels. Medical decision making was of moderate to high complexity , patient's has multiple comorbidities. Medications reviewed and adjusted accordingly: Yes
--- NOTE | 2017-11-26 15:07 | PDOC PROGRESS REPORT ---
Subjective Progress Note for:: 11/26/17 Subjective:: Patient relates that feels fine. He is requesting to be transferred on Wednesday to [facility] so he can have his AICD taken care of . Accordingly he talked to the gopherman office and they do not know how long the battery he is going to last. Review of systems All organ systems evaluated and negative except as in subjective All laboratories and significant diagnostics have been reviewed Reason For Visit: COPD EXCAERBATION Physical Exam Vital Signs: Temp Pulse Resp BP Pulse Ox 98.6 F 62 20 122/50 L 96 11/26/17 04:53 11/26/17 04:53 11/26/17 04:53 11/26/17 04:53 11/26/17 04:53 Intake & Output 11/25/17 11/26/17 11/27/17 06:59 06:59 06:59 Intake Total 962 241 Output Total 4450 4850 Balance -3488 -4609 Weight 115.9 kg 115.6 kg General appearance: PRESENT: cooperative, obese Head exam: PRESENT: atraumatic, normocephalic Eye exam: PRESENT: conjunctiva pink, EOMI, PERRLA Ear exam: PRESENT: normal external ear exam Mouth exam: PRESENT: moist Neck exam: PRESENT: full ROM. ABSENT: JVD, lymphadenopathy, tenderness Respiratory exam: PRESENT: crackles Cardiovascular exam: PRESENT: irregular rhythm. ABSENT: diastolic murmur, systolic murmur Vascular exam: PRESENT: normal capillary refill GI/Abdominal exam: PRESENT: normal bowel sounds, soft. ABSENT: tenderness Extremities exam: PRESENT: +2 edema - Extending the pelvic area Musculoskeletal exam: ABSENT: ambulatory Neurological exam: PRESENT: alert, awake, oriented to person, oriented to place , oriented to time, oriented to situation, CN II-XII grossly intact Psychiatric exam: PRESENT: appropriate affect, normal mood Skin exam: PRESENT: normal color Results Laboratory Results: 11/24/17 06:25 11/25/17 06:25 Sodium 142.0 Potassium 3.9 Chloride 100 Carbon Dioxide 35 H Anion Gap 7 BUN 92 H Creatinine 2.16 H Est GFR ( Amer) 36 L Est GFR (Non-Af Amer) 30 L Glucose 200 H Calcium 8.8 Magnesium 2.0 11/12/17 11/14/17 23:18 14:21 Troponin I 0.045 NT-Pro-B Natriuret Pep 2810 H Impressions: Chest X-Ray 11/12/17 18:15 IMPRESSION: HEART ENLARGED WITHOUT FAILURE. NO OTHER SIGNIFICANT RADIOGRAPHIC FINDING IN THE CHEST. Head CT 11/25/17 00:00 IMPRESSION: CHRONIC CHANGES OF ATROPHY AND MICROVASCULAR ISCHEMIA. NO ACUTE PROCESS. EVIDENCE OF ACUTE STROKE: NO. Assessment & Plan - Diagnosis (1) Skin tear Is this a current diagnosis for this admission?: Yes Plan: Continue foam dressing to skin tear of right lower extremity (2) Weakness Is this a current diagnosis for this admission?: Yes Plan: Continue physical therapy. CT scan of the head shows microvascular changes but no acute stroke (3) Acute on chronic renal failure Qualifiers: Chronic kidney disease stage: stage 3 (moderate) Is this a current diagnosis for this admission?: Yes Plan: Renal function baseline (4) Anasarca Is this a current diagnosis for this admission?: Yes Plan: Improved. 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 Continue diuresis (7) History of implantable cardioverter-defibrillator (ICD) placement Is this a current diagnosis for this admission?: Yes Plan: Patient will require follow-up with cardiology once is discharged. Patient has appointment with his gopherman on Wednesday. Will stop Coumadin. Will give low -dose vitamin K in anticipation to procedure (8) AICD discharge Is this a current diagnosis for this admission?: Yes Plan: Patient will follow-up with cardiology on Wednesday. Coumadin will be stopped (9) Acute and chronic respiratory failure Qualifiers: Respiratory failure complication: hypoxia and hypercapnia Qualified Code(s) : J96.21 - Acute and chronic respiratory failure with hypoxia; J96.22 - Acute and chronic respiratory failure with hypercapnia; J96.22 - Acute and chronic respiratory failure with hypercapnia; J96.22 - Acute and chronic respiratory failure with hypercapnia Is this a current diagnosis for this admission?: Yes Plan: Stable - Time Time Spent with patient: 15-24 minutes Medications reviewed and adjusted accordingly: Yes Anticipated discharge: Home with Homehealth Within: within 72 hours - Inpatient Certification Based on my medical assessment, after consideration of the patient's comorbidities, presenting symptoms, or acuity I expect that the services needed warrant INPATIENT care.: Yes I certify that my determination is in accordance with my understanding of Medicare's requirements for reasonable and necessary INPATIENT services [42 CFR 412.3e].: Yes Medical Necessity: Need Close Monitoring Due to Risk of Patient Decompensation
--- NOTE | 2017-11-26 15:11 | RADIOLOGY REPORT (SQ) ---
EXAM DESCRIPTION: CHEST PA/LAT COMPLETED DATE/TIME: 11/26/2017 2:56 pm REASON FOR STUDY: followup CHF COMPARISON: Two-view chest 11/05/2017 CT chest 10/29/2017, 07/08/2017 EXAM PARAMETERS: NUMBER OF VIEWS: two views TECHNIQUE: Digital Frontal and Lateral radiographic views of the chest acquired. RADIATION DOSE: NA LIMITATIONS: none FINDINGS: LUNGS AND PLEURA: There is chronic left-sided pleural calcification just above the hemidia phragm in the lateral costophrenic sulcus. There is minimal left basilar atelectasis or scarring similar compared to both prior studies. No fluffy alveolar infiltrates worrisome for edema or pneumonia. No pleural effusion. No pneumothor ax. MEDIASTINUM AND HILAR STRUCTURES: No masses or contour abnormalities. HEART AND VASCULAR STRUCTURES: Moderate cardiomegaly. Old sternotomy and CABG BONES: No acute findings. HARDWARE: Left-sided dual lead pacemaker OTHER: No other significant finding. IMPRESSION: No acute findings TECHNICAL DOCUMENTATION: JOB ID: [id number] [employer]- All Rights Reserved Reading location - IP/workstation name: [email or web address]
[2017-11-26] MEDS: INSULIN REG, HUMAN 100 UNIT/ML 3 ML VIAL (PYX) SUBCUT PRN ×2 (15:22→22:59)
--- NOTE | 2017-11-26 16:35 | PDOC PROGRESS REPORT ---
Subjective Progress Note for:: 11/26/17 Reason For Visit: Seen today. Generally doing fair. Still dyspneic with exertion. NO chest pains, fever or chills. Meds and labs reviewed with him. Physical Exam Vital Signs: Temp Pulse Resp BP Pulse Ox 98.2 F 59 L 19 106/41 L 100 11/26/17 15:51 11/26/17 15:51 11/26/17 15:51 11/26/17 15:51 11/26/17 15:51 Intake & Output 11/25/17 11/26/17 11/27/17 06:59 06:59 06:59 Intake Total 962 241 350 Output Total 4450 2460 525 Balance -1243 -4218 -675 Weight 115.9 kg 115.6 kg General appearance: PRESENT: no acute distress Respiratory exam: PRESENT: clear to auscultation dipti. ABSENT: crackles, rhonchi Cardiovascular exam: PRESENT: irregular rhythm, +S1, +S2 GI/Abdominal exam: PRESENT: normal bowel sounds, soft. ABSENT: ascites, organomegaly, tenderness Extremities exam: PRESENT: +1 edema Neurological exam: PRESENT: alert, awake, oriented to person, oriented to place Psychiatric exam: PRESENT: appropriate affect Results Laboratory Results: 11/24/17 06:25 11/26/17 06:46 11/26/17 06:46 Sodium 144.0 Potassium 3.7 Chloride 100 Carbon Dioxide 36 H Anion Gap 8 BUN 83 H Creatinine 2.18 H Est GFR ( Amer) 35 L Est GFR (Non-Af Amer) 29 L Glucose 155 H Calcium 8.6 11/12/17 11/14/17 23:18 14:21 Troponin I 0.045 NT-Pro-B Natriuret Pep 2810 H Impressions: Head CT 11/25/17 00:00 IMPRESSION: CHRONIC CHANGES OF ATROPHY AND MICROVASCULAR ISCHEMIA. NO ACUTE PROCESS. EVIDENCE OF ACUTE STROKE: NO. Chest X-Ray 11/26/17 12:46 IMPRESSION: No acute findings Assessment & Plan - Diagnosis (1) Acute kidney injury superimposed on CKD Is this a current diagnosis for this admission?: Yes Plan: He has pre renal CHF exacerberation causing his MYLES on top of his underlying CKD 3 likely from Diabetic nephropathy. He has relatively stable renal nos on the current medications. 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 Still has fluid overload and would continue IV diuretics for at least couple of days before discharge. (2) Chronic kidney disease, stage 3 Is this a current diagnosis for this admission?: Yes Plan: Now with MYLES on CKD 3 and stable . Non Oliguric. Relatively stable.NO acute indication for HEADER SETUP OPERATOR. (3) Acute on chronic systolic heart failure Is this a current diagnosis for this admission?: Yes Plan: Patient has bi ventricular failre/CMP. Currently admitted with acute on chronic insult and improving on current management.Off the Saccubutril/valsartan combo because of hypotension. (4) Acute respiratory failure with hypoxia Plan: Improving with resolution of his Acute CHF. (5) Diabetes type 2, uncontrolled Qualifiers: Diabetes mellitus complication status: with hyperglycemia Diabetes mellitus senior care insulin use: with extermination inspector use Qualified Code(s): E11.65 - Type 2 diabetes mellitus with hyperglycemia; Z79.4 - snf (current) use of insulin; Z79.4 - extermination inspector (current) use of insulin; Z79.4 - extermination inspector ( current) use of insulin; Z79.4 - extermination inspector (current) use of insulin Is this a current diagnosis for this admission?: Yes Plan: Adv on need for tight diabetic control. (6) Obesity (BMI 30.0-34.9) Is this a current diagnosis for this admission?: Yes Plan: Adv on weight loss with respect to blood sugars. (7) Hypokalemia Is this a current diagnosis for this admission?: Yes Plan: Stable on current replacements. Monitor. (8) Blisters of multiple sites Is this a current diagnosis for this admission?: Yes Plan: As per hospitalist. (9) Hypotension Qualifiers: Hypotension type: other hypotension type Qualified Code(s): I95.89 - Other hypotension Plan: Improved. (10) Anemia in chronic kidney disease Qualifiers: Chronic kidney disease stage: stage 3 (moderate) Qualified Code(s): N18.3 - Chronic kidney disease, stage 3 (moderate); D63.1 - Anemia in chronic kidney disease; D63.1 - Anemia in chronic kidney disease Is this a current diagnosis for this admission?: Yes Plan: Stable.Monitor. 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
[2017-11-26] MEDS: FINASTERIDE 5 MG TABLET PO SCH (22:58)
[2017-11-26] MEDS: MONTELUKAST SODIUM 10 MG TABLET PO SCH (22:58)
[2017-11-26] MEDS: TAMSULOSIN HCL 0.4 MG CAP.SR.24H PO SCH (22:58)
[2017-11-26] MEDS: ATORVASTATIN CALCIUM 40 MG TABLET PO SCH (22:58)
[2017-11-26] MEDS: METOPROLOL SUCCINATE 25 MG TAB.SR.24H PO SCH (22:58)
[2017-11-26] MEDS: INSULIN GLARGINE,HUM.REC.ANLOG 300 UNIT/3 ML INSULN.PEN SUBCUT SCH (22:59)
[2017-11-26] MEDS: SILVER SULFADIAZINE 1% CREAM 25 GM TP SCH (23:33)
[2017-11-27 05:57] LABS: ANION GAP 7 (5-19); BLOOD UREA NITROGEN 89 mg/dL (7-20); CALCIUM 8.4 mg/dL (8.4-10.2); CARBON DIOXIDE 36 mmol/L (22-30); CHLORIDE 99 mmol/L (98-107); GLUCOSE 202 mg/dL (75-110); POTASSIUM 3.4 mmol/L (3.6-5.0); SODIUM 141.8 mmol/L (137-145)
[2017-11-27] MEDS: LANSOPRAZOLE 30 MG TAB.RAP.DR PO SCH (06:55)
[2017-11-27] MEDS: ALLOPURINOL 300 MG TABLET PO SCH (09:33)
[2017-11-27] MEDS: RANOLAZINE 500 MG TAB.SR.12H PO SCH ×2 (09:34→22:13)
[2017-11-27] MEDS: METOLAZONE 5 MG TABLET PO SCH (09:35)
[2017-11-27] MEDS: ISOSORBIDE MONONITRATE 30 MG TAB.ER.24H PO SCH (09:36)
[2017-11-27] MEDS: ROFLUMILAST 500 MCG TABLET PO SCH (09:36)
[2017-11-27] MEDS: CHOLECALCIFEROL (D3) 400 UNIT TABLET PO SCH (09:36)
[2017-11-27] MEDS: MULTIVITAMIN TABLET PO SCH (09:37)
[2017-11-27] MEDS: DRONEDARONE HYDROCHLORIDE 400 MG TABLET PO SCH ×2 (09:37→22:13)
[2017-11-27] MEDS: SENNOSIDES/DOCUSATE 8.6-50 MG 1 EACH TABLET PO SCH ×2 (09:37→17:25)
[2017-11-27] MEDS: OXYCODONE-ACETAMINOPHEN 5-325 MG TABLET PO PRN ×4 (09:37→22:27)
[2017-11-27] MEDS: PREGABALIN 75 MG CAPSULE PO SCH ×2 (09:38→22:15)
[2017-11-27] MEDS: NITROGLYCERIN 2.5 MG (0.1 MG/HR) PATCH.TD24 TD SCH (09:39)
[2017-11-27] MEDS: ASPIRIN 81 MG TABLET, ENT COATED PO SCH (09:39)
[2017-11-27] MEDS: MAGNESIUM OXIDE 400 MG TABLET PO SCH ×2 (09:39→17:24)
[2017-11-27] MEDS: TIOTROPIUM BROMIDE DPI 5 CAP/KIT (18 MCG/CAP) IH SCH (09:40)
[2017-11-27] MEDS: FLUTICASONE/SALMETEROL DISKUS 500-50 MCG/DOSE IH SCH ×2 (09:41→22:18)
[2017-11-27] MEDS: INSULIN REG, HUMAN 100 UNIT/ML 3 ML VIAL (PYX) SUBCUT PRN ×3 (09:43→22:26)
--- NOTE | 2017-11-27 11:33 | PDOC PROGRESS REPORT ---
Subjective Progress Note for:: 11/27/17 Subjective:: Patient relates that feels fine. Patient admits that he had been eating outside food like yesterday he ate some country ham. Patient was reminded that his dietary indiscretions are causing some of his problems. Review of systems All organ systems evaluated and negative except as in subjective All laboratories and significant diagnostics have been reviewed Reason For Visit: COPD EXCAERBATION Physical Exam Vital Signs: Temp Pulse Resp BP Pulse Ox 97.9 F 60 18 130/51 H 98 11/27/17 07:07 11/27/17 07:07 11/27/17 07:07 11/27/17 07:07 11/27/17 07:07 Intake & Output 11/26/17 11/27/17 11/28/17 06:59 06:59 06:59 Intake Total 241 957 Output Total 4850 2925 Balance -4609 -2487 Weight 115.6 kg 116.7 kg General appearance: PRESENT: cooperative, obese Head exam: PRESENT: atraumatic, normocephalic Eye exam: PRESENT: conjunctiva pink, EOMI, PERRLA Ear exam: PRESENT: normal external ear exam Mouth exam: PRESENT: moist Neck exam: PRESENT: full ROM. ABSENT: JVD, lymphadenopathy, tenderness Respiratory exam: PRESENT: crackles, wheezes Cardiovascular exam: PRESENT: irregular rhythm. ABSENT: diastolic murmur, systolic murmur Vascular exam: PRESENT: normal capillary refill GI/Abdominal exam: PRESENT: normal bowel sounds, soft. ABSENT: tenderness Extremities exam: PRESENT: +2 edema - Edema and pelvic area improved Musculoskeletal exam: PRESENT: ambulatory Neurological exam: PRESENT: alert, awake, oriented to person, oriented to place , oriented to time, oriented to situation Psychiatric exam: PRESENT: appropriate affect, normal mood Skin exam: PRESENT: intact, normal color Results Laboratory Results: 11/24/17 06:25 11/27/17 05:20 11/27/17 05:20 Sodium 141.8 Potassium 3.4 L Chloride 99 Carbon Dioxide 36 H Anion Gap 7 BUN 89 H Creatinine 2.34 H Est GFR ( Amer) 33 L Est GFR (Non-Af Amer) 27 L Glucose 202 H Calcium 8.4 11/12/17 11/14/17 11/27/17 23:18 14:21 05:20 Troponin I 0.045 NT-Pro-B Natriuret Pep 2810 H 1540 H Impressions: Head CT 11/25/17 00:00 IMPRESSION: CHRONIC CHANGES OF ATROPHY AND MICROVASCULAR ISCHEMIA. NO ACUTE PROCESS. EVIDENCE OF ACUTE STROKE: NO. Chest X-Ray 11/26/17 12:46 IMPRESSION: No acute findings Assessment & Plan - Diagnosis (1) Skin tear Is this a current diagnosis for this admission?: Yes Plan: Continue foam dressing to skin tear of right lower extremity (2) Weakness Is this a current diagnosis for this admission?: Yes Plan: Continue physical therapy. CT scan of the head shows microvascular changes but no acute stroke (3) Acute on chronic renal failure Qualifiers: Chronic kidney disease stage: stage 3 (moderate) Is this a current diagnosis for this admission?: Yes Plan: Renal function baseline. Continue monitoring (4) Anasarca Is this a current diagnosis for this admission?: Yes Plan: Improved. Discontinue IV diuresis and place him on Bumex 2 mg 1 p.o. twice daily. Patient made aware of try to avoid food loaded with salt (5) Anemia in chronic kidney disease Qualifiers: Chronic kidney disease stage: stage 3 (moderate) Qualified Code(s): N18.3 - Chronic kidney disease, stage 3 (moderate); D63.1 - Anemia in chronic kidney disease; D63.1 - Anemia in chronic kidney disease Is this a current diagnosis for this admission?: Yes Plan: Stable (6) Combined systolic and diastolic congestive heart failure Qualifiers: Heart failure chronicity: acute on chronic Qualified Code(s): I50.43 - Acute on chronic combined systolic (congestive) and diastolic (congestive) heart failure Is this a current diagnosis for this admission?: Yes Plan: Improved. To discontinue IV Lasix and changed to oral diuresis (7) History of implantable cardioverter-defibrillator (ICD) placement Is this a current diagnosis for this admission?: Yes Plan: Patient will require follow-up with cardiology once is discharged. Patient has appointment with his bulb packer on Wednesday. Patient is off Coumadin. PT and INR have been ordered (8) AICD discharge Is this a current diagnosis for this admission?: Yes Plan: Patient will follow-up with cardiology on Wednesday. Patient off Coumadin since November 26. To follow-up PT and INR to verify adequate reversal (9) Acute and chronic respiratory failure Qualifiers: Respiratory failure complication: hypoxia and hypercapnia Qualified Code(s) : J96.21 - Acute and chronic respiratory failure with hypoxia; J96.22 - Acute and chronic respiratory failure with hypercapnia; J96.22 - Acute and chronic respiratory failure with hypercapnia; J96.22 - Acute and chronic respiratory failure with hypercapnia Is this a current diagnosis for this admission?: Yes Plan: Stable - Time Time Spent with patient: Less than 15 minutes Medications reviewed and adjusted accordingly: Yes Anticipated discharge: Home with Homehealth Within: within 48 hours - Inpatient Certification Based on my medical assessment, after consideration of the patient's comorbidities, presenting symptoms, or acuity I expect that the services needed warrant INPATIENT care.: Yes I certify that my determination is in accordance with my understanding of Medicare's requirements for reasonable and necessary INPATIENT services [42 CFR 412.3e].: Yes Medical Necessity: Need Close Monitoring Due to Risk of Patient Decompensation
[2017-11-27] MEDS ORDERED: POTASSIUM CHLORIDE 10 MEQ TABLET.SA PO ONE (12:00)
[2017-11-27] MEDS ORDERED: PREDNISONE 20 MG TABLET PO ONE (12:00)
--- NOTE | 2017-11-27 13:57 | PDOC PROGRESS REPORT ---
Subjective Progress Note for:: 11/27/17 Subjective:: Patient seen on morning rounds. Patient is denying any chest, neck discomfort. He has some baseline shortness of breath but denied any worsening. Patient claims that he might be able to go home either tomorrow or on Wednesday. Patient is atrial paced rhythm. No sustained tachycardia or bradycardia arrhythmias noted. Review of systems: Rest review of systems negative. Medications: Medications have been reviewed. Reason For Visit: COPD EXCAERBATION Physical Exam Vital Signs: Temp Pulse Resp BP Pulse Ox 97.4 F 59 L 20 100/35 L 95 11/27/17 11:24 11/27/17 11:24 11/27/17 11:24 11/27/17 11:24 11/27/17 11:24 Intake & Output 11/26/17 11/27/17 11/28/17 06:59 06:59 06:59 Intake Total 241 957 355 Output Total 4850 2925 400 Balance -4609 -1968 -45 Weight 115.6 kg 116.7 kg Exam: GENERAL: well-nourished and comfortable in no acute. Alert and oriented x3 HEAD: Atraumatic, normocephalic. EYES: Pupils equal round and reactive to light, extraocular movements intact, sclera anicteric, conjunctiva are normal. ENT: TMs normal, nares patent, oropharynx clear without exudates. Moist mucous membranes. No oral ulcerations or bleeding gums noted NECK: supple without lymphadenopathy. Trachea is central. No cervical or axillary lymphadenopathy noted. Carotids are 2+, JVD not elevated LUNGS: Respiration seems nonlabored, no significant accessory muscle action noted. Bilateral coarse crackles noted. Mild wheezes rales or rhonchi noted. No significant dullness noted on percussion. CHEST: Palpation of the chest wall shows no significant chest wall tenderness. No other significant abnormalities noted. HEART: [place] BEHAVIOR SUPPORT SPECIALIST, No PSH, 1/6 MAGIGE aortic area, 1/6 recinos systolic murmur mitral area, no rubs, no gallops. ABDOMEN: Soft, no significant tenderness appreciated, normoactive bowel sounds. No guarding, no rebound. No rigidity noted . No masses appreciated. EXTREMITIES: left below the knee amputation. The right leg has wound that is is covered up. 1+ edema noted of the right lower extremity with some superficial ulcerations. NEUROLOGICAL: Focused neurological exam showed no significant neurologic deficit. Normal speech, no focal weakness appreciated. PSYCH: Normal mood, normal affect. Judgment and insight within normal limits. SKIN: No significant ecchymosis, rash, signs of pruritus noted. Patient does have some ulcerations, which is superficial and covered with bandages. MUSCULOSKELETAL EXAM: No significant joint swelling noted. Results Laboratory Results: 11/24/17 06:25 11/27/17 05:20 11/27/17 05:20 Sodium 141.8 Potassium 3.4 L Chloride 99 Carbon Dioxide 36 H Anion Gap 7 BUN 89 H Creatinine 2.34 H Est GFR ( Amer) 33 L Est GFR (Non-Af Amer) 27 L Glucose 202 H Calcium 8.4 11/12/17 11/14/17 11/27/17 23:18 14:21 05:20 Troponin I 0.045 NT-Pro-B Natriuret Pep 2810 H 1540 H EKG Comments: Telemetry strip shows atrial paced rhythm. No sustained tachycardia or bradycardia arrhythmias noted Impressions: Head CT 11/25/17 00:00 IMPRESSION: CHRONIC CHANGES OF ATROPHY AND MICROVASCULAR ISCHEMIA. NO ACUTE PROCESS. EVIDENCE OF ACUTE STROKE: NO. Chest X-Ray 11/26/17 12:46 IMPRESSION: No acute findings Assessment & Plan - Diagnosis (1) CHF exacerbation Is this a current diagnosis for this admission?: Yes (2) COPD (chronic obstructive pulmonary disease) Qualifiers: COPD type: emphysema Emphysema type: unspecified Qualified Code(s): J43.9 - Emphysema, unspecified Is this a current diagnosis for this admission?: Yes (3) Coronary artery disease Qualifiers: Coronary Disease-Associated Artery/Lesion type: unspecified vessel or lesion type [place] vs. transplanted heart: [place] heart Associated angina: angina presence unspecified Qualified Code(s): I25.10 - Atherosclerotic heart disease of [place] coronary artery without angina pectoris Is this a current diagnosis for this admission?: Yes (4) DM type 2 (diabetes mellitus, type 2) Qualifiers: Diabetes mellitus complication status: with unspecified complications Diabetes mellitus residential insulin use: unspecified superintendent marine oil terminal insulin use status Qualified Code(s): E11.8 - Type 2 diabetes mellitus with unspecified complications Is this a current diagnosis for this admission?: Yes (5) Hyperlipidemia Qualifiers: Hyperlipidemia type: unspecified Qualified Code(s): E78.5 - Hyperlipidemia , unspecified Is this a current diagnosis for this admission?: Yes (6) Hypertension Qualifiers: Hypertension type: essential hypertension Qualified Code(s): I10 - Essential (primary) hypertension Is this a current diagnosis for this admission?: Yes (7) PVD (peripheral vascular disease) Is this a current diagnosis for this admission?: Yes (8) History of implantable cardioverter-defibrillator (ICD) placement Is this a current diagnosis for this admission?: Yes - Notes Notes: Chest x-ray ordered yesterday was reviewed. Showed no acute changes. No CHF noted. Patient does have some emphysematous changes. CHF exacerbation: Continue with current regimen. Patient was on entresto but this got discontinued for unknown reason. Consider restarting it. It was ordered by internet marketer. Nephrology has not made any new recommendation regarding this medication. Awaiting nephrology report on this. COPD: Agree with current management plans. Patient has been seen by chassis inspector and management has been optimized. Patient understands that he needs to use intermittent positive pressure ventilation whenever he is trying to sleep. Coronary artery disease: Currently symptomatically stable without any angina symptoms. Diabetes: Recommend good management of diabetes but avoid any hypo-or hyperglycemia. Chronic kidney disease: Significant stage IV. Patient being followed by internet marketer. Hypertension: Blood pressure goal should be 135/85 or less but could well be more liberal in this patient because of Multiple other comorbidities. PVD with wound infection: Recommend vascular surgery consultation, wound care consultation. History of ICD placement: Telemetry strips shows a paced rhythm. Patient to make an appointment with parts product analyst in [place] for having battery change out. General debility: Patient will benefit from physical therapy, patient now claims that he is expecting to be discharged on Wednesday. PT not available today. Patient encouraged to walk when his family members or friends around. These recommendations remain. - Time Time with patient: Greater than 35 minutes - CODE STATUS was discussed, patient remains full code. Surrogate decision-maker unchanged. Multiple medical problems were addressed. More than 50% of the time spent coordinating care, discussing management plans with involved caregivers. Management plans discussed with involved personnels. Medical decision making was of moderate to high complexity, patient's has multiple comorbidities. Medications reviewed and adjusted accordingly: Yes
--- NOTE | 2017-11-27 14:02 | PDOC PROGRESS REPORT ---
Subjective Progress Note for:: 11/24/17 Subjective:: Patient stable without complaint Reason For Visit: COPD EXCAERBATION Physical Exam Vital Signs: Temp Pulse Resp BP Pulse Ox 97.4 F 61 20 100/35 L 95 11/27/17 11:24 11/27/17 13:54 11/27/17 11:24 11/27/17 11:24 11/27/17 11:24 Intake & Output 11/26/17 11/27/17 11/28/17 06:59 06:59 06:59 Intake Total 241 957 355 Output Total 4850 2925 400 Balance -4609 -1968 -45 Weight 115.6 kg 116.7 kg General appearance: PRESENT: no acute distress, cooperative, disheveled, morbidly obese, well-developed Head exam: PRESENT: atraumatic, normocephalic Eye exam: PRESENT: conjunctiva pale, EOMI. ABSENT: nystagmus, periorbital swelling Mouth exam: PRESENT: moist, neck supple, tongue midline Neck exam: ABSENT: carotid bruit, JVD, lymphadenopathy, thyromegaly, tracheal deviation, tracheostomy Respiratory exam: PRESENT: decreased breath sounds, prolonged expiratory phas, rhonchi, symmetrical, unlabored, wheezes. ABSENT: rales, retraction, stridor, tachypnea Cardiovascular exam: PRESENT: RRR, +S1, +S2 Pulses: PRESENT: normal radial pulses GI/Abdominal exam: PRESENT: diminished bowel sounds, soft Extremities exam: PRESENT: pedal edema, other - s/p aka. ABSENT: calf tenderness, clubbing Musculoskeletal exam: ABSENT: dislocation Neurological exam: PRESENT: alert, awake Psychiatric exam: PRESENT: normal mood Skin exam: PRESENT: dry, warm Results Laboratory Results: 11/24/17 06:25 11/27/17 05:20 11/27/17 05:20 Sodium 141.8 Potassium 3.4 L Chloride 99 Carbon Dioxide 36 H Anion Gap 7 BUN 89 H Creatinine 2.34 H Est GFR ( Amer) 33 L Est GFR (Non-Af Amer) 27 L Glucose 202 H Calcium 8.4 11/12/17 11/14/17 11/27/17 23:18 14:21 05:20 Troponin I 0.045 NT-Pro-B Natriuret Pep 2810 H 1540 H Impressions: Head CT 11/25/17 00:00 IMPRESSION: CHRONIC CHANGES OF ATROPHY AND MICROVASCULAR ISCHEMIA. NO ACUTE PROCESS. EVIDENCE OF ACUTE STROKE: NO. Chest X-Ray 11/26/17 12:46 IMPRESSION: No acute findings Assessment & Plan - Diagnosis (1) Anasarca Is this a current diagnosis for this admission?: No (2) Blisters of multiple sites Is this a current diagnosis for this admission?: No (3) PVD (peripheral vascular disease) Is this a current diagnosis for this admission?: Yes Plan: No change (4) Acute and chronic respiratory failure Qualifiers: Respiratory failure complication: hypoxia and hypercapnia Qualified Code(s) : J96.21 - Acute and chronic respiratory failure with hypoxia; J96.22 - Acute and chronic respiratory failure with hypercapnia; J96.22 - Acute and chronic respiratory failure with hypercapnia; J96.22 - Acute and chronic respiratory failure with hypercapnia Is this a current diagnosis for this admission?: Yes Plan: Patient is relatively BiPAP dependent continue BiPAP and supplemental oxygen Patient is wearing when he is asleep day or night (5) CHF exacerbation Is this a current diagnosis for this admission?: Yes Plan: As per cardiology (6) COPD (chronic obstructive pulmonary disease) Qualifiers: COPD type: emphysema Emphysema type: unspecified Qualified Code(s): J43.9 - Emphysema, unspecified Is this a current diagnosis for this admission?: Yes Plan: Initiate bronchodilator therapy Xopenex hopefully this will be less stimulatory Spiriva and Pulmicort nebulizers and Daliresp
--- NOTE | 2017-11-27 14:04 | PDOC PROGRESS REPORT ---
Subjective Progress Note for:: 11/26/17 Subjective:: Patient stable without complaint Reason For Visit: COPD EXCAERBATION Physical Exam Vital Signs: Temp Pulse Resp BP Pulse Ox 97.4 F 61 20 100/35 L 95 11/27/17 11:24 11/27/17 13:54 11/27/17 11:24 11/27/17 11:24 11/27/17 11:24 Intake & Output 11/26/17 11/27/17 11/28/17 06:59 06:59 06:59 Intake Total 241 957 355 Output Total 4850 2925 400 Balance -4609 -1968 -45 Weight 115.6 kg 116.7 kg General appearance: PRESENT: no acute distress, cooperative, disheveled, morbidly obese, well-developed Head exam: PRESENT: atraumatic, normocephalic Eye exam: PRESENT: conjunctiva pale, EOMI. ABSENT: nystagmus, periorbital swelling, scleral icterus Mouth exam: PRESENT: dry mucosa, neck supple, tongue midline Neck exam: ABSENT: carotid bruit, JVD, lymphadenopathy, thyromegaly, tracheal deviation, tracheostomy Respiratory exam: PRESENT: decreased breath sounds, prolonged expiratory phas, rales, rhonchi, symmetrical, unlabored. ABSENT: retraction, stridor, tachypnea Cardiovascular exam: PRESENT: RRR, +S1, +S2 Pulses: PRESENT: normal radial pulses GI/Abdominal exam: PRESENT: diminished bowel sounds, soft Extremities exam: PRESENT: pedal edema. ABSENT: calf tenderness, clubbing Musculoskeletal exam: PRESENT: deformity, dislocation Neurological exam: PRESENT: alert, awake Psychiatric exam: PRESENT: normal mood Skin exam: PRESENT: dry, warm Results Laboratory Results: 11/24/17 06:25 11/27/17 05:20 11/27/17 05:20 Sodium 141.8 Potassium 3.4 L Chloride 99 Carbon Dioxide 36 H Anion Gap 7 BUN 89 H Creatinine 2.34 H Est GFR ( Amer) 33 L Est GFR (Non-Af Amer) 27 L Glucose 202 H Calcium 8.4 11/12/17 11/14/17 11/27/17 23:18 14:21 05:20 Troponin I 0.045 NT-Pro-B Natriuret Pep 2810 H 1540 H Impressions: Head CT 11/25/17 00:00 IMPRESSION: CHRONIC CHANGES OF ATROPHY AND MICROVASCULAR ISCHEMIA. NO ACUTE PROCESS. EVIDENCE OF ACUTE STROKE: NO. Chest X-Ray 11/26/17 12:46 IMPRESSION: No acute findings Assessment & Plan - Diagnosis (1) Anasarca Is this a current diagnosis for this admission?: No (2) Blisters of multiple sites Is this a current diagnosis for this admission?: No (3) PVD (peripheral vascular disease) Is this a current diagnosis for this admission?: Yes Plan: No change (4) Acute and chronic respiratory failure Qualifiers: Respiratory failure complication: hypoxia and hypercapnia Qualified Code(s) : J96.21 - Acute and chronic respiratory failure with hypoxia; J96.22 - Acute and chronic respiratory failure with hypercapnia; J96.22 - Acute and chronic respiratory failure with hypercapnia; J96.22 - Acute and chronic respiratory failure with hypercapnia Is this a current diagnosis for this admission?: Yes Plan: Patient is relatively BiPAP dependent continue BiPAP and supplemental oxygen Patient is wearing when he is asleep day or night (5) CHF exacerbation Is this a current diagnosis for this admission?: Yes Plan: As per cardiology (6) COPD (chronic obstructive pulmonary disease) Qualifiers: COPD type: emphysema Emphysema type: unspecified Qualified Code(s): J43.9 - Emphysema, unspecified Is this a current diagnosis for this admission?: Yes Plan: Initiate bronchodilator therapy Xopenex hopefully this will be less stimulatory Spiriva and Pulmicort nebulizers and Daliresp
--- NOTE | 2017-11-27 14:08 | PDOC PROGRESS REPORT ---
Subjective Progress Note for:: 11/18/17 Subjective:: Patient with complaint continue dyspnea Reason For Visit: COPD EXCAERBATION Physical Exam Vital Signs: Temp Pulse Resp BP Pulse Ox 97.7 F 62 20 128/45 H 95 11/23/17 20:44 11/23/17 20:44 11/23/17 20:44 11/23/17 20:44 11/23/17 20:44 Intake & Output 11/22/17 11/23/17 11/24/17 06:59 06:59 06:59 Intake Total 1932019 Output Total 2900 3600 800 Balance -969 -1580 -358 Weight 120.5 kg 117.5 kg General appearance: PRESENT: cooperative, disheveled, mild distress, morbidly obese, well-developed Head exam: PRESENT: atraumatic, normocephalic Eye exam: PRESENT: conjunctiva pale, EOMI. ABSENT: nystagmus, periorbital swelling, scleral icterus Mouth exam: PRESENT: moist, neck supple, tongue midline Neck exam: ABSENT: carotid bruit, JVD, lymphadenopathy, thyromegaly, tracheal deviation, tracheostomy Respiratory exam: PRESENT: crackles, decreased breath sounds, prolonged expiratory phas, rhonchi, symmetrical, unlabored, wheezes. ABSENT: retraction, stridor Cardiovascular exam: PRESENT: RRR, +S1, +S2 Pulses: PRESENT: normal radial pulses GI/Abdominal exam: PRESENT: diminished bowel sounds, soft Extremities exam: PRESENT: other - s/p aka. ABSENT: calf tenderness, clubbing Musculoskeletal exam: PRESENT: dislocation Neurological exam: PRESENT: alert, awake Psychiatric exam: PRESENT: flat affect Skin exam: PRESENT: dry, warm Results Laboratory Results: 11/21/17 04:53 11/23/17 11:19 11/23/17 11/23/17 11:19 20:00 Sodium 137.3 Potassium 3.7 Chloride 100 Carbon Dioxide 29 Anion Gap 8 BUN 85 H Creatinine 2.48 H Est GFR ( Amer) 31 L Est GFR (Non-Af Amer) 25 L Glucose 132 H Calcium 8.4 Urine Color DARK YELLOW Urine Appearance SLIGHTLY-CLOUDY Urine pH 5.0 Ur Specific [place] 1.013 Urine Protein 30 H Urine Glucose (UA) 150 H Urine Ketones NEGATIVE Urine Blood LARGE H Urine Nitrite NEGATIVE Ur Leukocyte Esterase SMALL H Urine WBC (Auto) 12 Urine RBC (Auto) >182 11/12/17 11/14/17 23:18 14:21 Troponin I 0.045 NT-Pro-B Natriuret Pep 2810 H Impressions: Chest X-Ray 11/12/17 18:15 IMPRESSION: HEART ENLARGED WITHOUT FAILURE. NO OTHER SIGNIFICANT RADIOGRAPHIC FINDING IN THE CHEST. Assessment & Plan - Diagnosis (1) Anasarca Is this a current diagnosis for this admission?: No (2) Blisters of multiple sites Is this a current diagnosis for this admission?: No (3) PVD (peripheral vascular disease) Is this a current diagnosis for this admission?: Yes Plan: No change (4) Acute and chronic respiratory failure Qualifiers: Respiratory failure complication: hypoxia and hypercapnia Qualified Code(s) : J96.21 - Acute and chronic respiratory failure with hypoxia; J96.22 - Acute and chronic respiratory failure with hypercapnia; J96.22 - Acute and chronic respiratory failure with hypercapnia; J96.22 - Acute and chronic respiratory failure with hypercapnia Is this a current diagnosis for this admission?: Yes Plan: Patient is relatively BiPAP dependent continue BiPAP and supplemental oxygen Patient is wearing when he is asleep day or night (5) CHF exacerbation Is this a current diagnosis for this admission?: Yes Plan: As per cardiology (6) COPD (chronic obstructive pulmonary disease) Qualifiers: COPD type: emphysema Emphysema type: unspecified Qualified Code(s): J43.9 - Emphysema, unspecified Is this a current diagnosis for this admission?: Yes Plan: Initiate bronchodilator therapy Xopenex hopefully this will be less stimulatory Spiriva and Pulmicort nebulizers and Daliresp
--- NOTE | 2017-11-27 14:10 | PDOC PROGRESS REPORT ---
Subjective Progress Note for:: 11/19/17 Subjective:: Patient with complaint continue dyspnea Reason For Visit: COPD EXCAERBATION Physical Exam Vital Signs: Temp Pulse Resp BP Pulse Ox 97.7 F 62 20 128/45 H 95 11/23/17 20:44 11/23/17 20:44 11/23/17 20:44 11/23/17 20:44 11/23/17 20:44 Intake & Output 11/22/17 11/23/17 11/24/17 06:59 06:59 06:59 Intake Total 1932019 Output Total 2900 3600 800 Balance -969 -1580 -358 Weight 120.5 kg 117.5 kg General appearance: PRESENT: cooperative, disheveled, mild distress, morbidly obese, well-developed Head exam: PRESENT: normocephalic Eye exam: PRESENT: conjunctiva pale, EOMI. ABSENT: nystagmus, periorbital swelling, scleral icterus Mouth exam: PRESENT: moist, neck supple, tongue midline Neck exam: ABSENT: carotid bruit, JVD, lymphadenopathy, thyromegaly, tracheal deviation, tracheostomy Respiratory exam: PRESENT: decreased breath sounds, prolonged expiratory phas, rales, rhonchi, symmetrical, unlabored, wheezes. ABSENT: retraction, stridor, tachypnea Cardiovascular exam: PRESENT: RRR, +S1, +S2 Pulses: PRESENT: normal radial pulses GI/Abdominal exam: PRESENT: diminished bowel sounds, soft Extremities exam: PRESENT: pedal edema. ABSENT: calf tenderness, clubbing Musculoskeletal exam: ABSENT: dislocation Neurological exam: PRESENT: alert, awake Psychiatric exam: PRESENT: normal mood Skin exam: PRESENT: dry, warm Results Laboratory Results: 11/21/17 04:53 11/23/17 11:19 11/23/17 11/23/17 11:19 20:00 Sodium 137.3 Potassium 3.7 Chloride 100 Carbon Dioxide 29 Anion Gap 8 BUN 85 H Creatinine 2.48 H Est GFR ( Amer) 31 L Est GFR (Non-Af Amer) 25 L Glucose 132 H Calcium 8.4 Urine Color DARK YELLOW Urine Appearance SLIGHTLY-CLOUDY Urine pH 5.0 Ur Specific [place] 1.013 Urine Protein 30 H Urine Glucose (UA) 150 H Urine Ketones NEGATIVE Urine Blood LARGE H Urine Nitrite NEGATIVE Ur Leukocyte Esterase SMALL H Urine WBC (Auto) 12 Urine RBC (Auto) >182 11/12/17 11/14/17 23:18 14:21 Troponin I 0.045 NT-Pro-B Natriuret Pep 2810 H Impressions: Chest X-Ray 11/12/17 18:15 IMPRESSION: HEART ENLARGED WITHOUT FAILURE. NO OTHER SIGNIFICANT RADIOGRAPHIC FINDING IN THE CHEST. Assessment & Plan - Diagnosis (1) Anasarca Is this a current diagnosis for this admission?: No (2) Blisters of multiple sites Is this a current diagnosis for this admission?: No (3) PVD (peripheral vascular disease) Is this a current diagnosis for this admission?: Yes Plan: No change (4) Acute and chronic respiratory failure Qualifiers: Respiratory failure complication: hypoxia and hypercapnia Qualified Code(s) : J96.21 - Acute and chronic respiratory failure with hypoxia; J96.22 - Acute and chronic respiratory failure with hypercapnia; J96.22 - Acute and chronic respiratory failure with hypercapnia; J96.22 - Acute and chronic respiratory failure with hypercapnia Is this a current diagnosis for this admission?: Yes Plan: Patient is relatively BiPAP dependent continue BiPAP and supplemental oxygen Patient is wearing when he is asleep day or night (5) CHF exacerbation Is this a current diagnosis for this admission?: Yes Plan: As per cardiology (6) COPD (chronic obstructive pulmonary disease) Qualifiers: COPD type: emphysema Emphysema type: unspecified Qualified Code(s): J43.9 - Emphysema, unspecified Is this a current diagnosis for this admission?: Yes Plan: Initiate bronchodilator therapy Xopenex hopefully this will be less stimulatory Spiriva and Pulmicort nebulizers and Daliresp
--- NOTE | 2017-11-27 14:12 | PDOC PROGRESS REPORT ---
Subjective Progress Note for:: 11/22/17 Subjective:: Patient with complaint continue dyspnea Reason For Visit: COPD EXCAERBATION Physical Exam Vital Signs: Temp Pulse Resp BP Pulse Ox 97.7 F 62 20 128/45 H 95 11/23/17 20:44 11/23/17 20:44 11/23/17 20:44 11/23/17 20:44 11/23/17 20:44 Intake & Output 11/22/17 11/23/17 11/24/17 06:59 06:59 06:59 Intake Total 1932019 Output Total 2900 3600 800 Balance -969 -1580 -358 Weight 120.5 kg 117.5 kg General appearance: PRESENT: no acute distress, cooperative, disheveled, morbidly obese, well-developed Head exam: PRESENT: atraumatic, normocephalic Eye exam: PRESENT: conjunctiva pale, EOMI. ABSENT: nystagmus, periorbital swelling, scleral icterus Mouth exam: PRESENT: moist, neck supple, tongue midline Neck exam: ABSENT: carotid bruit, JVD, lymphadenopathy, thyromegaly, tracheal deviation, tracheostomy Respiratory exam: PRESENT: decreased breath sounds, prolonged expiratory phas, rhonchi, symmetrical, unlabored. ABSENT: rales, retraction, stridor, tachypnea Cardiovascular exam: PRESENT: RRR, +S1, +S2 Pulses: PRESENT: normal radial pulses GI/Abdominal exam: PRESENT: diminished bowel sounds, soft Extremities exam: PRESENT: pedal edema. ABSENT: calf tenderness, clubbing Musculoskeletal exam: ABSENT: dislocation Neurological exam: PRESENT: alert, awake Psychiatric exam: PRESENT: normal mood Skin exam: PRESENT: dry, warm Results Laboratory Results: 11/21/17 04:53 11/23/17 11:19 11/23/17 11/23/17 11:19 20:00 Sodium 137.3 Potassium 3.7 Chloride 100 Carbon Dioxide 29 Anion Gap 8 BUN 85 H Creatinine 2.48 H Est GFR ( Amer) 31 L Est GFR (Non-Af Amer) 25 L Glucose 132 H Calcium 8.4 Urine Color DARK YELLOW Urine Appearance SLIGHTLY-CLOUDY Urine pH 5.0 Ur Specific [place] 1.013 Urine Protein 30 H Urine Glucose (UA) 150 H Urine Ketones NEGATIVE Urine Blood LARGE H Urine Nitrite NEGATIVE Ur Leukocyte Esterase SMALL H Urine WBC (Auto) 12 Urine RBC (Auto) >182 11/12/17 11/14/17 23:18 14:21 Troponin I 0.045 NT-Pro-B Natriuret Pep 2810 H Impressions: Chest X-Ray 11/12/17 18:15 IMPRESSION: HEART ENLARGED WITHOUT FAILURE. NO OTHER SIGNIFICANT RADIOGRAPHIC FINDING IN THE CHEST. Assessment & Plan - Diagnosis (1) Anasarca Is this a current diagnosis for this admission?: No (2) Blisters of multiple sites Is this a current diagnosis for this admission?: No (3) PVD (peripheral vascular disease) Is this a current diagnosis for this admission?: Yes Plan: No change (4) Acute and chronic respiratory failure Qualifiers: Respiratory failure complication: hypoxia and hypercapnia Qualified Code(s) : J96.21 - Acute and chronic respiratory failure with hypoxia; J96.22 - Acute and chronic respiratory failure with hypercapnia; J96.22 - Acute and chronic respiratory failure with hypercapnia; J96.22 - Acute and chronic respiratory failure with hypercapnia Is this a current diagnosis for this admission?: Yes Plan: Patient is relatively BiPAP dependent continue BiPAP and supplemental oxygen Patient is wearing when he is asleep day or night (5) CHF exacerbation Is this a current diagnosis for this admission?: Yes Plan: As per cardiology (6) COPD (chronic obstructive pulmonary disease) Qualifiers: COPD type: emphysema Emphysema type: unspecified Qualified Code(s): J43.9 - Emphysema, unspecified Is this a current diagnosis for this admission?: Yes Plan: Initiate bronchodilator therapy Xopenex hopefully this will be less stimulatory Spiriva and Pulmicort nebulizers and Daliresp
--- NOTE | 2017-11-27 14:14 | PDOC PROGRESS REPORT ---
Subjective Progress Note for:: 11/23/17 Subjective:: Patient with complaint continue dyspnea Reason For Visit: COPD EXCAERBATION Physical Exam Vital Signs: Temp Pulse Resp BP Pulse Ox 97.7 F 62 20 128/45 H 95 11/23/17 20:44 11/23/17 20:44 11/23/17 20:44 11/23/17 20:44 11/23/17 20:44 Intake & Output 11/22/17 11/23/17 11/24/17 06:59 06:59 06:59 Intake Total 1932019 Output Total 2900 3600 800 Balance -969 -1580 -358 Weight 120.5 kg 117.5 kg General appearance: PRESENT: no acute distress, cooperative, disheveled, morbidly obese, well-developed Head exam: PRESENT: atraumatic, normocephalic Eye exam: PRESENT: conjunctiva pale, EOMI. ABSENT: nystagmus, periorbital swelling, scleral icterus Mouth exam: PRESENT: moist, neck supple, tongue midline Neck exam: PRESENT: tracheal deviation, tracheostomy. ABSENT: carotid bruit, JVD, lymphadenopathy, thyromegaly Respiratory exam: PRESENT: decreased breath sounds, prolonged expiratory phas, rales, rhonchi, symmetrical, unlabored. ABSENT: retraction, stridor, tachypnea Cardiovascular exam: PRESENT: RRR, +S1, +S2 Pulses: PRESENT: normal radial pulses GI/Abdominal exam: PRESENT: diminished bowel sounds, soft Extremities exam: PRESENT: pedal edema. ABSENT: calf tenderness, clubbing Neurological exam: PRESENT: alert, awake Psychiatric exam: PRESENT: normal mood Skin exam: PRESENT: dry, warm Results Laboratory Results: 11/21/17 04:53 11/23/17 11:19 11/23/17 11/23/17 11:19 20:00 Sodium 137.3 Potassium 3.7 Chloride 100 Carbon Dioxide 29 Anion Gap 8 BUN 85 H Creatinine 2.48 H Est GFR ( Amer) 31 L Est GFR (Non-Af Amer) 25 L Glucose 132 H Calcium 8.4 Urine Color DARK YELLOW Urine Appearance SLIGHTLY-CLOUDY Urine pH 5.0 Ur Specific [place] 1.013 Urine Protein 30 H Urine Glucose (UA) 150 H Urine Ketones NEGATIVE Urine Blood LARGE H Urine Nitrite NEGATIVE Ur Leukocyte Esterase SMALL H Urine WBC (Auto) 12 Urine RBC (Auto) >182 11/12/17 11/14/17 23:18 14:21 Troponin I 0.045 NT-Pro-B Natriuret Pep 2810 H Impressions: Chest X-Ray 11/12/17 18:15 IMPRESSION: HEART ENLARGED WITHOUT FAILURE. NO OTHER SIGNIFICANT RADIOGRAPHIC FINDING IN THE CHEST. Assessment & Plan - Diagnosis (1) Blisters of multiple sites Is this a current diagnosis for this admission?: No (2) PVD (peripheral vascular disease) Is this a current diagnosis for this admission?: Yes Plan: No change (3) Acute and chronic respiratory failure Qualifiers: Respiratory failure complication: hypoxia and hypercapnia Qualified Code(s) : J96.21 - Acute and chronic respiratory failure with hypoxia; J96.22 - Acute and chronic respiratory failure with hypercapnia; J96.22 - Acute and chronic respiratory failure with hypercapnia; J96.22 - Acute and chronic respiratory failure with hypercapnia Is this a current diagnosis for this admission?: Yes Plan: Patient is relatively BiPAP dependent continue BiPAP and supplemental oxygen Patient is wearing when he is asleep day or night (4) CHF exacerbation Is this a current diagnosis for this admission?: Yes Plan: As per cardiology (5) COPD (chronic obstructive pulmonary disease) Qualifiers: COPD type: emphysema Emphysema type: unspecified Qualified Code(s): J43.9 - Emphysema, unspecified Is this a current diagnosis for this admission?: Yes Plan: Initiate bronchodilator therapy Xopenex hopefully this will be less stimulatory Spiriva and Pulmicort nebulizers and Daliresp
[2017-11-27] MEDS: BUMETANIDE 1 MG TABLET PO SCH (17:24)
[2017-11-27] MEDS ORDERED: OXYCODONE-ACETAMINOPHEN 5-325 MG TABLET PO PRN ×2 (18:43→19:13)
[2017-11-27] MEDS: ATORVASTATIN CALCIUM 40 MG TABLET PO SCH (22:14)
[2017-11-27] MEDS: MONTELUKAST SODIUM 10 MG TABLET PO SCH (22:14)
[2017-11-27] MEDS: TAMSULOSIN HCL 0.4 MG CAP.SR.24H PO SCH (22:15)
[2017-11-27] MEDS: POTASSIUM CHLORIDE 10 MEQ TABLET.SA PO SCH (22:16)
[2017-11-27] MEDS: METOPROLOL SUCCINATE 25 MG TAB.SR.24H PO SCH (22:16)
[2017-11-27] MEDS: FINASTERIDE 5 MG TABLET PO SCH (22:17)
[2017-11-27] MEDS: INSULIN GLARGINE,HUM.REC.ANLOG 300 UNIT/3 ML INSULN.PEN SUBCUT SCH (22:19)
[2017-11-27] MEDS: SILVER SULFADIAZINE 1% CREAM 25 GM TP SCH (22:43)
[2017-11-28] MEDS: OXYCODONE-ACETAMINOPHEN 5-325 MG TABLET PO PRN ×5 (04:20→21:19)
[2017-11-28] MEDS: LANSOPRAZOLE 30 MG TAB.RAP.DR PO SCH (05:24)
[2017-11-28 06:28] LABS: INTERNATIONAL RATION (INR) 0.98; PROTHROMBIN TIME 13.6 SEC (11.4-15.4)
[2017-11-28 06:32] LABS: ANION GAP 10 (5-19); BLOOD UREA NITROGEN 95 mg/dL (7-20); CALCIUM 8.7 mg/dL (8.4-10.2); CARBON DIOXIDE 33 mmol/L (22-30); CHLORIDE 97 mmol/L (98-107); GLUCOSE 81 mg/dL (75-110); POTASSIUM 3.9 mmol/L (3.6-5.0); SODIUM 139.5 mmol/L (137-145)
[2017-11-28] MEDS: RANOLAZINE 500 MG TAB.SR.12H PO SCH ×2 (10:35→22:52)
[2017-11-28] MEDS: TIOTROPIUM BROMIDE DPI 5 CAP/KIT (18 MCG/CAP) IH SCH (10:36)
[2017-11-28] MEDS: PREDNISONE 20 MG TABLET PO SCH (10:36)
[2017-11-28] MEDS: POTASSIUM CHLORIDE 10 MEQ TABLET.SA PO SCH ×2 (10:36→22:53)
[2017-11-28] MEDS: CHOLECALCIFEROL (D3) 400 UNIT TABLET PO SCH (10:37)
[2017-11-28] MEDS: ASPIRIN 81 MG TABLET, ENT COATED PO SCH (10:37)
[2017-11-28] MEDS: SENNOSIDES/DOCUSATE 8.6-50 MG 1 EACH TABLET PO SCH ×2 (10:37→17:00)
[2017-11-28] MEDS: ISOSORBIDE MONONITRATE 30 MG TAB.ER.24H PO SCH (10:38)
[2017-11-28] MEDS: ROFLUMILAST 500 MCG TABLET PO SCH (10:38)
[2017-11-28] MEDS: PREGABALIN 75 MG CAPSULE PO SCH ×2 (10:38→22:50)
[2017-11-28] MEDS: MAGNESIUM OXIDE 400 MG TABLET PO SCH ×2 (10:38→17:01)
[2017-11-28] MEDS: MULTIVITAMIN TABLET PO SCH (10:39)
[2017-11-28] MEDS: DRONEDARONE HYDROCHLORIDE 400 MG TABLET PO SCH ×2 (10:39→22:52)
[2017-11-28] MEDS: METOLAZONE 5 MG TABLET PO SCH (10:40)
[2017-11-28] MEDS: FLUTICASONE/SALMETEROL DISKUS 500-50 MCG/DOSE IH SCH ×2 (10:41→22:54)
[2017-11-28] MEDS: ALLOPURINOL 300 MG TABLET PO SCH (10:42)
[2017-11-28] MEDS: NITROGLYCERIN 2.5 MG (0.1 MG/HR) PATCH.TD24 TD SCH (10:42)
[2017-11-28] MEDS: BUMETANIDE 1 MG TABLET PO SCH ×2 (10:42→17:03)
--- NOTE | 2017-11-28 11:59 | PDOC PROGRESS REPORT ---
Subjective Progress Note for:: 11/28/17 Subjective:: Patient seen on morning rounds. No significant change in patient's condition. Patient remains with swelling of upper extremity, right lower extremity and some ulcerations which are all covered up, but this is significantly improved from admission. Patient is denying any chest, neck discomfort. He has some baseline shortness of breath but denied any worsening. Patient just feels generally weak. Patient claims he is ready to go home but need to be able to walk before he can be discharged. Patient claims to be doing better. Patient claims that he is working with physical therapy now. Patient is atrial paced rhythm. No sustained tachycardia or bradycardia arrhythmias noted. Review of systems: Rest review of systems negative. Medications: Medications have been reviewed. Reason For Visit: COPD EXCAERBATION Physical Exam Vital Signs: Temp Pulse Resp BP Pulse Ox 98.1 F 58 L 20 130/46 H 97 11/28/17 07:06 11/28/17 07:06 11/28/17 07:06 11/28/17 07:06 11/28/17 08:40 Intake & Output 11/27/17 11/28/17 11/29/17 06:59 06:59 06:59 Intake Total 957 1139 Output Total 2925 4225 Balance -1968 -3086 Weight 116.7 kg 114.5 kg Exam: GENERAL: well-nourished and comfortable in no acute. Alert and oriented x3 HEAD: Atraumatic, normocephalic. EYES: Pupils equal round and reactive to light, extraocular movements intact, sclera anicteric, conjunctiva are normal. ENT: TMs normal, nares patent, oropharynx clear without exudates. Moist mucous membranes. No oral ulcerations or bleeding gums noted NECK: supple without lymphadenopathy. Trachea is central. No cervical or axillary lymphadenopathy noted. Carotids are 2+, JVD not elevated LUNGS: Respiration seems nonlabored, no significant accessory muscle action noted. Bilateral coarse crackles noted. Mild wheezes rales or rhonchi noted. No significant dullness noted on percussion. CHEST: Palpation of the chest wall shows no significant chest wall tenderness. No other significant abnormalities noted. 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 ABDOMEN: Soft, no significant tenderness appreciated, normoactive bowel sounds. No guarding, no rebound. No rigidity noted . No masses appreciated. EXTREMITIES: left below the knee amputation. The right leg has wound that is is covered up. 1+ edema noted of the right lower extremity with some superficial ulcerations. NEUROLOGICAL: Focused neurological exam showed no significant neurologic deficit. Normal speech, no focal weakness appreciated. PSYCH: Normal mood, normal affect. Judgment and insight within normal limits. SKIN: No significant ecchymosis, rash, signs of pruritus noted. Patient does have some ulcerations, which is superficial and covered with bandages. MUSCULOSKELETAL EXAM: No significant joint swelling noted. Results Laboratory Results: 11/24/17 06:25 11/28/17 05:23 11/28/17 05:23 Sodium 139.5 Potassium 3.9 Chloride 97 L Carbon Dioxide 33 H Anion Gap 10 BUN 95 H Creatinine 2.56 H Est GFR ( Amer) 29 L Est GFR (Non-Af Amer) 24 L Glucose 81 Calcium 8.7 11/12/17 11/14/17 11/27/17 23:18 14:21 05:20 Troponin I 0.045 NT-Pro-B Natriuret Pep 2810 H 1540 H Impressions: Head CT 11/25/17 00:00 IMPRESSION: CHRONIC CHANGES OF ATROPHY AND MICROVASCULAR ISCHEMIA. NO ACUTE PROCESS. EVIDENCE OF ACUTE STROKE: NO. Chest X-Ray 11/26/17 12:46 IMPRESSION: No acute findings Assessment & Plan - Diagnosis (1) CHF exacerbation Is this a current diagnosis for this admission?: Yes (2) COPD (chronic obstructive pulmonary disease) Qualifiers: COPD type: emphysema Emphysema type: unspecified Qualified Code(s): J43.9 - Emphysema, unspecified Is this a current diagnosis for this admission?: Yes (3) Coronary artery disease Qualifiers: Coronary Disease-Associated Artery/Lesion type: unspecified vessel or lesion type [place] vs. transplanted heart: [place] heart Associated angina: angina presence unspecified Qualified Code(s): I25.10 - Atherosclerotic heart disease of [place] coronary artery without angina pectoris Is this a current diagnosis for this admission?: Yes (4) DM type 2 (diabetes mellitus, type 2) Qualifiers: Diabetes mellitus complication status: with unspecified complications Diabetes mellitus fdc insulin use: unspecified fdc insulin use status Qualified Code(s): E11.8 - Type 2 diabetes mellitus with unspecified complications Is this a current diagnosis for this admission?: Yes (5) Hyperlipidemia Qualifiers: Hyperlipidemia type: unspecified Qualified Code(s): E78.5 - Hyperlipidemia , unspecified Is this a current diagnosis for this admission?: Yes (6) Hypertension Qualifiers: Hypertension type: essential hypertension Qualified Code(s): I10 - Essential (primary) hypertension Is this a current diagnosis for this admission?: Yes (7) PVD (peripheral vascular disease) Is this a current diagnosis for this admission?: Yes (8) History of implantable cardioverter-defibrillator (ICD) placement Is this a current diagnosis for this admission?: Yes - Notes Notes: No change in patient condition. She is showing slow gradual improvement. Patient placed on Bumex 2 mg mg p.o. twice daily. CHF exacerbation: Continue with current regimen. Patient was on entresto but this got discontinued for unknown reason. Consider restarting it. It was ordered by cigar head pegger. Nephrology has not made any new recommendation regarding this medication. Awaiting nephrology report on this. COPD: Agree with current management plans. Patient has been seen by roll up operator and management has been optimized. Patient understands that he needs to use intermittent positive pressure ventilation whenever he is trying to sleep. Coronary artery disease: Currently symptomatically stable without any angina symptoms. Diabetes: Recommend good management of diabetes but avoid any hypo-or hyperglycemia. Chronic kidney disease: Significant stage IV. Patient being followed by cigar head pegger. Hypertension: Blood pressure goal should be 135/85 or less but could well be more liberal in this patient because of Multiple other comorbidities. PVD with wound infection: Recommend vascular surgery consultation, wound care consultation. History of ICD placement: Telemetry strips shows a paced rhythm. Patient to make an appointment with application development consultant in [place] for having battery change out. General debility: Patient will benefit from physical therapy, patient now claims that he is expecting to be discharged on Wednesday. PT not available today. Patient encouraged to walk when his family members or friends around. These recommendations remain. - Time Time with patient: Greater than 35 minutes - CODE STATUS was discussed, patient remains full code. Surrogate decision-maker unchanged. Multiple medical problems were addressed. More than 50% of the time spent coordinating care, discussing management plans with involved caregivers. Management plans discussed with involved personnels. Medical decision making was of moderate to high complexity, patient's has multiple comorbidities. Medications reviewed and adjusted accordingly: Yes
--- NOTE | 2017-11-28 12:23 | PDOC PROGRESS REPORT ---
Subjective Progress Note for:: 11/28/17 Subjective:: Major concern is that he wants to be transferred from here via then for change of the AICD battery. Dr. Garcia was in the room and made him aware that he did not need to be transferred but instead to make an appointment to have a change. Is my understanding that this issue had been dealt during his prior hospitalizations and patient also yet had failed with recommendations to follow- up in this regard. Patient made aware that major issues at the present time relate to fluid overload since he is getting multiple open wounds. His right lower extremity had turned dark which he attributes to a nurse applying Silvadene cream.He again has been reinforced as to avoid salty food. Patient was also reminded that he is at risk of getting wound infection and due to sepsis Review of systems All organ systems evaluated and negative except as in subjective All laboratories and significant diagnostics have been reviewed Reason For Visit: COPD EXCAERBATION Physical Exam Vital Signs: Temp Pulse Resp BP Pulse Ox 97.8 F 59 L 22 H 104/53 L 100 11/28/17 04:02 11/28/17 04:02 11/28/17 04:02 11/28/17 04:02 11/28/17 04:02 Intake & Output 11/27/17 11/28/17 11/29/17 06:59 06:59 06:59 Intake Total 957 1139 Output Total 2921 4225 Balance -1968 -308 Weight 116.7 kg 114.5 kg General appearance: PRESENT: cooperative, obese Head exam: PRESENT: atraumatic, normocephalic Eye exam: PRESENT: conjunctiva pink, EOMI, PERRLA Ear exam: PRESENT: normal external ear exam Neck exam: PRESENT: full ROM. ABSENT: JVD, lymphadenopathy, tenderness Cardiovascular exam: PRESENT: other - Soft basilar crackles with adequate movement of air Vascular exam: PRESENT: normal capillary refill GI/Abdominal exam: PRESENT: normal bowel sounds, soft. ABSENT: tenderness Extremities exam: PRESENT: +2 edema Musculoskeletal exam: ABSENT: ambulatory Neurological exam: PRESENT: alert, awake, oriented to person, oriented to place , oriented to time, oriented to situation, CN II-XII grossly intact Psychiatric exam: PRESENT: appropriate affect, normal mood Skin exam: PRESENT: skin tears - Multiple skin tears Dark brown discoloration below right knee Results Laboratory Results: 11/24/17 06:25 11/28/17 05:23 11/28/17 05:23 Sodium 139.5 Potassium 3.9 Chloride 97 L Carbon Dioxide 33 H Anion Gap 10 BUN 95 H Creatinine 2.56 H Est GFR ( Amer) 29 L Est GFR (Non-Af Amer) 24 L Glucose 81 Calcium 8.7 11/12/17 11/14/17 11/27/17 23:18 14:21 05:20 Troponin I 0.045 NT-Pro-B Natriuret Pep 2810 H 1540 H Impressions: Head CT 11/25/17 00:00 IMPRESSION: CHRONIC CHANGES OF ATROPHY AND MICROVASCULAR ISCHEMIA. NO ACUTE PROCESS. EVIDENCE OF ACUTE STROKE: NO. Chest X-Ray 11/26/17 12:46 IMPRESSION: No acute findings Assessment & Plan - Diagnosis (1) Skin tear Is this a current diagnosis for this admission?: Yes Plan: Continue foam dressing to skin tear of right lower and upper extremities (2) Weakness Is this a current diagnosis for this admission?: Yes Plan: Continue physical therapy. CT scan of the head shows microvascular changes but no acute stroke (3) Acute on chronic renal failure Qualifiers: Chronic kidney disease stage: stage 3 (moderate) Is this a current diagnosis for this admission?: Yes Plan: There is a mild bump in creatinine. Will continue with current diuretic therapy. Patient is certainly cardiorenal (4) Anasarca Is this a current diagnosis for this admission?: No Plan: Improved when compared to 2 days ago. 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 In my opinion it will be very difficult to get him on the dry side since also patient sabotages his treatment by eating inappropriate fluid (7) History of implantable cardioverter-defibrillator (ICD) placement Is this a current diagnosis for this admission?: Yes Plan: Patient will require follow-up with cardiology once is discharged. When checking with other providers this issue had been addressing prior hospitalizations and phage patient had failed to follow through. In addition Dr. Garcia told him that he needed to follow-up with his marketing project manager that he did not need to be transferred (8) AICD discharge Is this a current diagnosis for this admission?: Yes Plan: Patient will follow-up with cardiology on Wednesday. Patient off Coumadin since November 26. (9) Acute and chronic respiratory failure Qualifiers: Respiratory failure complication: hypoxia and hypercapnia Qualified Code(s) : J96.21 - Acute and chronic respiratory failure with hypoxia; J96.22 - Acute and chronic respiratory failure with hypercapnia; J96.22 - Acute and chronic respiratory failure with hypercapnia; J96.22 - Acute and chronic respiratory failure with hypercapnia Is this a current diagnosis for this admission?: Yes Plan: Stable - Time Time Spent with patient: Less than 15 minutes Medications reviewed and adjusted accordingly: Yes Anticipated discharge: Home - Consulted case management for patient to be evaluated for hospice Within: within 24 hours - Inpatient Certification Based on my medical assessment, after consideration of the patient's comorbidities, presenting symptoms, or acuity I expect that the services needed warrant INPATIENT care.: Yes I certify that my determination is in accordance with my understanding of Medicare's requirements for reasonable and necessary INPATIENT services [42 CFR 412.3e].: Yes Medical Necessity: Need Close Monitoring Due to Risk of Patient Decompensation
[2017-11-28] MEDS: INSULIN REG, HUMAN 100 UNIT/ML 3 ML VIAL (PYX) SUBCUT PRN ×3 (12:31→22:49)
[2017-11-28] MEDS: INSULIN GLARGINE,HUM.REC.ANLOG 300 UNIT/3 ML INSULN.PEN SUBCUT SCH (22:49)
[2017-11-28] MEDS: METOPROLOL SUCCINATE 25 MG TAB.SR.24H PO SCH (22:49)
[2017-11-28] MEDS: MONTELUKAST SODIUM 10 MG TABLET PO SCH (22:50)
[2017-11-28] MEDS: ATORVASTATIN CALCIUM 40 MG TABLET PO SCH (22:51)
[2017-11-28] MEDS: TAMSULOSIN HCL 0.4 MG CAP.SR.24H PO SCH (22:51)
[2017-11-28] MEDS: FINASTERIDE 5 MG TABLET PO SCH (22:52)
[2017-11-28] MEDS: SILVER SULFADIAZINE 1% CREAM 25 GM TP SCH (22:55)
[2017-11-29] MEDS: OXYCODONE-ACETAMINOPHEN 5-325 MG TABLET PO PRN ×4 (01:39→21:05)
[2017-11-29] MEDS: LANSOPRAZOLE 30 MG TAB.RAP.DR PO SCH (06:12)
[2017-11-29] MEDS: POTASSIUM CHLORIDE 10 MEQ TABLET.SA PO SCH ×2 (10:31→21:07)
[2017-11-29] MEDS: RANOLAZINE 500 MG TAB.SR.12H PO SCH ×2 (10:31→21:06)
[2017-11-29] MEDS: ALLOPURINOL 300 MG TABLET PO SCH (10:32)
[2017-11-29] MEDS: MAGNESIUM OXIDE 400 MG TABLET PO SCH ×2 (10:32→17:18)
[2017-11-29] MEDS: CHOLECALCIFEROL (D3) 400 UNIT TABLET PO SCH (10:32)
[2017-11-29] MEDS: SENNOSIDES/DOCUSATE 8.6-50 MG 1 EACH TABLET PO SCH ×2 (10:32→17:19)
[2017-11-29] MEDS: ROFLUMILAST 500 MCG TABLET PO SCH (10:32)
[2017-11-29] MEDS: PREDNISONE 20 MG TABLET PO SCH (10:32)
[2017-11-29] MEDS: BUMETANIDE 1 MG TABLET PO SCH ×2 (10:32→17:19)
[2017-11-29] MEDS: METOLAZONE 5 MG TABLET PO SCH (10:32)
[2017-11-29] MEDS: MULTIVITAMIN TABLET PO SCH (10:32)
[2017-11-29] MEDS: DRONEDARONE HYDROCHLORIDE 400 MG TABLET PO SCH ×2 (10:33→21:06)
[2017-11-29] MEDS: NITROGLYCERIN 2.5 MG (0.1 MG/HR) PATCH.TD24 TD SCH (10:33)
[2017-11-29] MEDS: PREGABALIN 75 MG CAPSULE PO SCH ×2 (10:33→21:05)
[2017-11-29] MEDS: ISOSORBIDE MONONITRATE 30 MG TAB.ER.24H PO SCH (10:33)
[2017-11-29] MEDS: ASPIRIN 81 MG TABLET, ENT COATED PO SCH (10:33)
[2017-11-29] MEDS: FLUTICASONE/SALMETEROL DISKUS 500-50 MCG/DOSE IH SCH ×2 (10:34→21:12)
[2017-11-29] MEDS: TIOTROPIUM BROMIDE DPI 5 CAP/KIT (18 MCG/CAP) IH SCH (10:44)
[2017-11-29 15:16] LABS: ANION GAP 11 (5-19); BLOOD UREA NITROGEN 82 mg/dL (7-20); CARBON DIOXIDE 36 mmol/L (22-30); CHLORIDE 94 mmol/L (98-107); GLUCOSE 185 mg/dL (75-110); POTASSIUM 4.1 mmol/L (3.6-5.0); SODIUM 140.7 mmol/L (137-145)
--- NOTE | 2017-11-29 16:11 | PDOC PROGRESS REPORT ---
Subjective Progress Note for:: 11/29/17 Subjective:: Patient is doing well is just upset of not getting enough physical therapy No fever no chills no chest pain shortness of breath Wound infection in the right lower extremity is looking better Ambulated with physical therapy using a walker Reason For Visit: COPD EXCAERBATION Physical Exam Vital Signs: Temp Pulse Resp BP Pulse Ox 97.8 F 61 20 101/47 L 97 11/29/17 12:10 11/29/17 14:00 11/29/17 12:10 11/29/17 12:10 11/29/17 12:10 Intake & Output 11/28/17 11/29/17 11/30/17 00:59 00:59 00:59 Intake Total 1149 1020 305 Output Total 3825 5775 1700 Balance -7396 -1639 -6235 Weight 116.7 kg 114.5 kg 112.7 kg eneral appearance: PRESENT: no acute distress, obese, well-developed, well- nourished, other - Chronically ill Head exam: PRESENT: atraumatic, normocephalic Eye exam: PRESENT: conjunctiva pink, EOMI, PERRLA. ABSENT: scleral icterus Ear exam: PRESENT: normal external ear exam Mouth exam: PRESENT: moist, neck supple, tongue midline Neck exam: PRESENT: carotid bruit, full ROM Respiratory exam: PRESENT: few basilar rales , clear symmetrical, unlabored Cardiovascular exam: PRESENT: RRR. ABSENT: diastolic murmur, rubs, systolic murmur Pulses: PRESENT: normal carotid pulses, normal radial pulses GI/Abdominal exam: PRESENT: firm, hypoactive bowel sounds, soft Rectal exam: PRESENT: deferred Extremities exam: PRESENT: calf tenderness, pedal edema, +1 edema - Lower leg. Left AKA, other Neurological exam: PRESENT: alert, awake, oriented to person, oriented to place , oriented to time, oriented to situation, CN II-XII grossly intact. ABSENT: motor sensory deficit Psychiatric exam: PRESENT: anxious Skin exam: PRESENT: abrasion, skin tears - Chronic venous stasis color changes of the right lower extremity, warm, other Results Laboratory Results: 11/24/17 06:25 11/29/17 14:24 11/29/17 14:24 Sodium 140.7 Potassium 4.1 Chloride 94 L Carbon Dioxide 36 H Anion Gap 11 BUN 82 H Creatinine 2.60 H Est GFR ( Amer) 29 L Est GFR (Non-Af Amer) 24 L Glucose 185 H Calcium 9.0 11/12/17 11/14/17 11/27/17 23:18 14:21 05:20 Troponin I 0.045 NT-Pro-B Natriuret Pep 2810 H 1540 H Impressions: Head CT 11/25/17 00:00 IMPRESSION: CHRONIC CHANGES OF ATROPHY AND MICROVASCULAR ISCHEMIA. NO ACUTE PROCESS. EVIDENCE OF ACUTE STROKE: NO. Chest X-Ray 11/26/17 12:46 IMPRESSION: No acute findings Assessment & Plan - Diagnosis (1) History of implantable cardioverter-defibrillator (ICD) placement Is this a current diagnosis for this admission?: Yes (2) Acute on chronic diastolic heart failure Is this a current diagnosis for this admission?: Yes (3) Acute and chronic respiratory failure Qualifiers: Respiratory failure complication: hypoxia and hypercapnia Qualified Code(s) : J96.21 - Acute and chronic respiratory failure with hypoxia; J96.22 - Acute and chronic respiratory failure with hypercapnia; J96.22 - Acute and chronic respiratory failure with hypercapnia; J96.22 - Acute and chronic respiratory failure with hypercapnia Is this a current diagnosis for this admission?: Yes (4) PVD (peripheral vascular disease) Is this a current diagnosis for this admission?: Yes (5) CKD (chronic kidney disease), stage IV Is this a current diagnosis for this admission?: Yes - Time Time Spent with patient: Continue same management ; patient to be discharged Wednesday with home health and home PT Patient has arranged follow-up appointments in [place] Time Spent with patient: 25-34 minutes
[2017-11-29] MEDS: INSULIN REG, HUMAN 100 UNIT/ML 3 ML VIAL (PYX) SUBCUT PRN ×2 (17:19→23:04)
[2017-11-29] MEDS: MONTELUKAST SODIUM 10 MG TABLET PO SCH (21:05)
[2017-11-29] MEDS: TAMSULOSIN HCL 0.4 MG CAP.SR.24H PO SCH (21:06)
[2017-11-29] MEDS: FINASTERIDE 5 MG TABLET PO SCH (21:06)
[2017-11-29] MEDS: METOPROLOL SUCCINATE 25 MG TAB.SR.24H PO SCH (21:07)
[2017-11-29] MEDS: ATORVASTATIN CALCIUM 40 MG TABLET PO SCH (21:07)
[2017-11-29] MEDS: SILVER SULFADIAZINE 1% CREAM 25 GM TP SCH (21:13)
[2017-11-29] MEDS: INSULIN GLARGINE,HUM.REC.ANLOG 300 UNIT/3 ML INSULN.PEN SUBCUT SCH (23:04)
[2017-11-30] MEDS: OXYCODONE-ACETAMINOPHEN 5-325 MG TABLET PO PRN ×6 (01:24→22:57)
[2017-11-30] MEDS: LANSOPRAZOLE 30 MG TAB.RAP.DR PO SCH (05:13)
[2017-11-30 06:23] LABS: ANION GAP 6 (5-19); BLOOD UREA NITROGEN 91 mg/dL (7-20); CALCIUM 8.9 mg/dL (8.4-10.2); CARBON DIOXIDE 38 mmol/L (22-30); CHLORIDE 98 mmol/L (98-107); GLUCOSE 208 mg/dL (75-110); SODIUM 141.8 mmol/L (137-145)
[2017-11-30] MEDS: ALLOPURINOL 300 MG TABLET PO SCH (09:19)
[2017-11-30] MEDS: ASPIRIN 81 MG TABLET, ENT COATED PO SCH (09:19)
[2017-11-30] MEDS: CHOLECALCIFEROL (D3) 400 UNIT TABLET PO SCH (09:19)
[2017-11-30] MEDS: BUMETANIDE 1 MG TABLET PO SCH ×2 (09:19→18:12)
[2017-11-30] MEDS: DRONEDARONE HYDROCHLORIDE 400 MG TABLET PO SCH ×2 (09:19→22:57)
[2017-11-30] MEDS: MULTIVITAMIN TABLET PO SCH (09:20)
[2017-11-30] MEDS: NITROGLYCERIN 2.5 MG (0.1 MG/HR) PATCH.TD24 TD SCH (09:20)
[2017-11-30] MEDS: METOLAZONE 5 MG TABLET PO SCH (09:20)
[2017-11-30] MEDS: MAGNESIUM OXIDE 400 MG TABLET PO SCH ×2 (09:20→18:13)
[2017-11-30] MEDS: ISOSORBIDE MONONITRATE 30 MG TAB.ER.24H PO SCH (09:20)
[2017-11-30] MEDS: FLUTICASONE/SALMETEROL DISKUS 500-50 MCG/DOSE IH SCH ×2 (09:20→22:57)
[2017-11-30] MEDS: PREDNISONE 20 MG TABLET PO SCH (09:21)
[2017-11-30] MEDS: POTASSIUM CHLORIDE 10 MEQ TABLET.SA PO SCH ×2 (09:21→22:58)
[2017-11-30] MEDS: PREGABALIN 75 MG CAPSULE PO SCH ×2 (09:21→22:57)
[2017-11-30] MEDS: ROFLUMILAST 500 MCG TABLET PO SCH (09:21)
[2017-11-30] MEDS: SENNOSIDES/DOCUSATE 8.6-50 MG 1 EACH TABLET PO SCH ×2 (09:21→18:12)
[2017-11-30] MEDS: RANOLAZINE 500 MG TAB.SR.12H PO SCH ×2 (09:21→22:59)
[2017-11-30] MEDS: INSULIN REG, HUMAN 100 UNIT/ML 3 ML VIAL (PYX) SUBCUT PRN ×2 (09:21→18:13)
[2017-11-30] MEDS: TIOTROPIUM BROMIDE DPI 5 CAP/KIT (18 MCG/CAP) IH SCH (09:21)
--- NOTE | 2017-11-30 09:26 | PDOC PROGRESS REPORT ---
Subjective Progress Note for:: 11/29/17 Subjective:: Patient today was seen laying in his bed. At the time he focused on getting more PT. He said he is currently right now receiving only 15 minutes a day of PT. He says that he refuses to leave in the next couple of days without receiving more PT. He also doesn't want to do outpatient PT or go to a rehab facility. Currently right now he denies chest pain, SOB, fevers or chills. Reason For Visit: COPD EXCAERBATION Physical Exam Vital Signs: Temp Pulse Resp BP Pulse Ox 97.8 F 60 20 101/47 L 97 11/29/17 12:10 11/29/17 12:10 11/29/17 12:10 11/29/17 12:10 11/29/17 12:10 Intake & Output 11/28/17 11/29/17 11/30/17 06:59 06:59 06:59 Intake Total 1139 1015 300 Output Total 4225 4625 700 Balance -1286 -0153 -400 Weight 114.5 kg 112.7 kg General appearance: PRESENT: no acute distress, morbidly obese, well-developed, well-nourished Mouth exam: PRESENT: moist, neck supple Neck exam: PRESENT: full ROM. ABSENT: JVD Respiratory exam: PRESENT: rhonchi, wheezes. ABSENT: accessory muscle use, clear to auscultation dipti Cardiovascular exam: PRESENT: irregular rhythm, +S1, +S2 GI/Abdominal exam: PRESENT: normal bowel sounds, soft. ABSENT: ascites, organomegaly, tenderness Extremities exam: PRESENT: pedal edema - trace+, tenderness Musculoskeletal exam: PRESENT: tenderness. ABSENT: normal inspection Neurological exam: PRESENT: alert, awake, oriented to person, oriented to place , oriented to time, oriented to situation Skin exam: PRESENT: dry, erythema, skin tears, warm. ABSENT: cyanosis, intact Results Laboratory Results: 11/24/17 06:25 11/28/17 05:23 11/12/17 11/14/17 11/27/17 23:18 14:21 05:20 Troponin I 0.045 NT-Pro-B Natriuret Pep 2810 H 1540 H Impressions: Head CT 11/25/17 00:00 IMPRESSION: CHRONIC CHANGES OF ATROPHY AND MICROVASCULAR ISCHEMIA. NO ACUTE PROCESS. EVIDENCE OF ACUTE STROKE: NO. Chest X-Ray 11/26/17 12:46 IMPRESSION: No acute findings Assessment & Plan - Diagnosis (1) Acute on chronic systolic heart failure Is this a current diagnosis for this admission?: Yes Plan: looks to be almost controlled (2) Anasarca Is this a current diagnosis for this admission?: Yes Plan: looks to be almost resolved (3) Acute kidney injury superimposed on CKD Is this a current diagnosis for this admission?: Yes Plan: currently, worsening (4) Chronic kidney disease, stage 3 Is this a current diagnosis for this admission?: Yes Plan: currently trending up, ordering new bmp (5) Anemia Qualifiers: Other causes of anemia: chronic disease, other Is this a current diagnosis for this admission?: Yes Plan: maintaining stable (6) Hypertension Qualifiers: Hypertension type: essential hypertension Qualified Code(s): I10 - Essential (primary) hypertension Is this a current diagnosis for this admission?: Yes Plan: controlled (7) Acute on chronic respiratory failure with hypoxia and hypercapnia Is this a current diagnosis for this admission?: Yes Plan: resolved (8) COPD with acute exacerbation Is this a current diagnosis for this admission?: Yes Plan: looks to have mostly resolved (9) Blisters of multiple sites Is this a current diagnosis for this admission?: Yes Plan: currently being handled by hospitalist. (10) Diabetes type 2, uncontrolled Qualifiers: Diabetes mellitus complication status: with hyperglycemia Diabetes mellitus intermediate insulin use: with intermediate use Qualified Code(s): E11.65 - Type 2 diabetes mellitus with hyperglycemia; Z79.4 - terminal carman (current) use of insulin; Z79.4 - assisted (current) use of insulin; Z79.4 - assisted ( current) use of insulin; Z79.4 - terminal carman (current) use of insulin Is this a current diagnosis for this admission?: Yes (11) Debility Is this a current diagnosis for this admission?: Yes Plan: currently working with PT, according to the patient the hospitalist ordered more. - Notes Notes: patient was discussed with Dr. Mcdonald
--- NOTE | 2017-11-30 13:33 | PDOC PROGRESS REPORT ---
Subjective Progress Note for:: 11/30/17 Reason For Visit: He is really feeling lots better and he tells me [facility] and then home. He denies any chest pains, dyspnea, fever or chills.Making good urine . His edema of his legs are markedly improved. Labs and meds were reviewed with him. Physical Exam Vital Signs: Temp Pulse Resp BP Pulse Ox 97.8 F 60 20 111/73 100 11/30/17 12:11 11/30/17 12:11 11/30/17 12:11 11/30/17 12:11 11/30/17 12:11 Intake & Output 11/29/17 11/30/17 12/01/17 06:59 06:59 06:59 Intake Total 1015 1615 355 Output Total 4629 4200 900 Balance -3610 -2585 -545 Weight 112.7 kg 110.2 kg General appearance: PRESENT: no acute distress Respiratory exam: PRESENT: clear to auscultation dipti. ABSENT: crackles, rhonchi Cardiovascular exam: PRESENT: irregular rhythm, +S1, +S2 GI/Abdominal exam: PRESENT: normal bowel sounds, soft. ABSENT: ascites, organomegaly, tenderness Extremities exam: ABSENT: pedal edema Neurological exam: PRESENT: alert, awake, oriented to person, oriented to place Results Laboratory Results: 11/24/17 06:25 11/30/17 05:18 11/29/17 11/30/17 14:24 05:18 Sodium 140.7 141.8 Potassium 4.1 4.0 Chloride 94 L 98 Carbon Dioxide 36 H 38 H Anion Gap 11 6 BUN 82 H 91 H Creatinine 2.60 H 2.74 H Est GFR ( Amer) 29 L 27 L Est GFR (Non-Af Amer) 24 L 23 L Glucose 185 H 208 H Calcium 9.0 8.9 11/12/17 11/14/17 11/27/17 23:18 14:21 05:20 Troponin I 0.045 NT-Pro-B Natriuret Pep 2810 H 1540 H Impressions: Head CT 11/25/17 00:00 IMPRESSION: CHRONIC CHANGES OF ATROPHY AND MICROVASCULAR ISCHEMIA. NO ACUTE PROCESS. EVIDENCE OF ACUTE STROKE: NO. Chest X-Ray 11/26/17 12:46 IMPRESSION: No acute findings Assessment & Plan - Diagnosis (1) Acute kidney injury superimposed on CKD Is this a current diagnosis for this admission?: Yes Plan: He has had pre renal CHF exacerberation causing his MYLES on top of his underlying CKD 3 likely from Diabetic nephropathy. He has relatively stable renal nos on the current medications even though he is not back to his base line creatinine of 2. The fluid overload is markedly improved and he is a bit on the dry side. I have discussed with Dr Corado , Hospitalist to adjust down his diuretics and I would like to see him in my office in ten days with labs. I discussed with him on dietary modifications. (2) Chronic kidney disease, stage 3 Is this a current diagnosis for this admission?: Yes Plan: Now with MYLES on CKD 3 and stable. Non Oliguric. Relatively stable. His latest creatinine is 2.7 as to baseline of 2.0. Follow up as OP with labs. (3) Acute on chronic systolic heart failure Is this a current diagnosis for this admission?: Yes Plan: Patient has bi ventricular failre/CMP. Currently admitted with acute on chronic insult and improving on current management. Would reconsider Saccubutril/ valsartan again when stable as it was stopped for hypotension in hospital. (4) Acute respiratory failure with hypoxia Plan: Resolved. (5) Diabetes type 2, uncontrolled Qualifiers: Diabetes mellitus complication status: with hyperglycemia Diabetes mellitus superintendent terminal insulin use: with superintendent terminal use Qualified Code(s): E11.65 - Type 2 diabetes mellitus with hyperglycemia; Z79.4 - jail (current) use of insulin; Z79.4 - jail (current) use of insulin; Z79.4 - exterminator helper ( current) use of insulin; Z79.4 - jail (current) use of insulin Is this a current diagnosis for this admission?: Yes Plan: Adv on need for tight diabetic control. (6) Obesity (BMI 30.0-34.9) Is this a current diagnosis for this admission?: Yes (7) Hypokalemia Is this a current diagnosis for this admission?: Yes Plan: Stable on current replacements. Monitor. (8) Blisters of multiple sites Is this a current diagnosis for this admission?: Yes (9) Hypotension Qualifiers: Hypotension type: other hypotension type Qualified Code(s): I95.89 - Other hypotension (10) Anemia in chronic kidney disease Qualifiers: Chronic kidney disease stage: stage 3 (moderate) Qualified Code(s): N18.3 - Chronic kidney disease, stage 3 (moderate); D63.1 - Anemia in chronic kidney disease; D63.1 - Anemia in chronic kidney disease Is this a current diagnosis for this admission?: Yes Plan: Stable.Monitor. (11) Combined systolic and diastolic congestive heart failure Qualifiers: Heart failure chronicity: acute on chronic Qualified Code(s): I50.43 - Acute on chronic combined systolic (congestive) and diastolic (congestive) heart failure Is this a current diagnosis for this admission?: Yes
--- NOTE | 2017-11-30 14:57 | PDOC PROGRESS REPORT ---
Subjective Progress Note for:: 11/30/17 Subjective:: Patient with complaint continue dyspnea Reason For Visit: COPD EXCAERBATION Physical Exam Vital Signs: Temp Pulse Resp BP Pulse Ox 97.8 F 59 L 18 154/61 H 96 11/30/17 07:06 11/30/17 07:06 11/30/17 07:06 11/30/17 07:06 11/30/17 07:06 Intake & Output 11/29/17 11/30/17 12/01/17 06:59 06:59 06:59 Intake Total 1015 1615 Output Total 4630 4200 Balance -3970 -2948 Weight 112.7 kg 110.2 kg General appearance: PRESENT: no acute distress, cooperative, disheveled, morbidly obese, well-developed Head exam: PRESENT: atraumatic, normocephalic Eye exam: PRESENT: conjunctiva pale. ABSENT: nystagmus, periorbital swelling, scleral icterus Mouth exam: PRESENT: dry mucosa, neck supple, tongue midline Neck exam: ABSENT: carotid bruit, JVD, lymphadenopathy, thyromegaly, tracheal deviation, tracheostomy Respiratory exam: PRESENT: decreased breath sounds, prolonged expiratory phas, rales, rhonchi, symmetrical, unlabored, wheezes. ABSENT: retraction, stridor, tachypnea Cardiovascular exam: PRESENT: RRR, +S1, +S2 Pulses: PRESENT: normal radial pulses GI/Abdominal exam: PRESENT: diminished bowel sounds, soft Extremities exam: PRESENT: +1 edema. ABSENT: calf tenderness Musculoskeletal exam: ABSENT: dislocation Neurological exam: PRESENT: alert, awake Psychiatric exam: PRESENT: normal mood Skin exam: PRESENT: dry, warm Results Laboratory Results: 11/24/17 06:25 11/30/17 05:18 11/29/17 11/30/17 14:24 05:18 Sodium 140.7 141.8 Potassium 4.1 4.0 Chloride 94 L 98 Carbon Dioxide 36 H 38 H Anion Gap 11 6 BUN 82 H 91 H Creatinine 2.60 H 2.74 H Est GFR ( Amer) 29 L 27 L Est GFR (Non-Af Amer) 24 L 23 L Glucose 185 H 208 H Calcium 9.0 8.9 11/12/17 11/14/17 11/27/17 23:18 14:21 05:20 Troponin I 0.045 NT-Pro-B Natriuret Pep 2810 H 1540 H Impressions: Head CT 11/25/17 00:00 IMPRESSION: CHRONIC CHANGES OF ATROPHY AND MICROVASCULAR ISCHEMIA. NO ACUTE PROCESS. EVIDENCE OF ACUTE STROKE: NO. Chest X-Ray 11/26/17 12:46 IMPRESSION: No acute findings Assessment & Plan - Diagnosis (1) PVD (peripheral vascular disease) Is this a current diagnosis for this admission?: Yes Plan: No change (2) Acute and chronic respiratory failure Qualifiers: Respiratory failure complication: hypoxia and hypercapnia Qualified Code(s) : J96.21 - Acute and chronic respiratory failure with hypoxia; J96.22 - Acute and chronic respiratory failure with hypercapnia; J96.22 - Acute and chronic respiratory failure with hypercapnia; J96.22 - Acute and chronic respiratory failure with hypercapnia Is this a current diagnosis for this admission?: Yes Plan: Patient is wearing (NIPPV) when he is asleep day or night and is feeling much better (3) CHF exacerbation Is this a current diagnosis for this admission?: Yes Plan: As per cardiology (4) COPD (chronic obstructive pulmonary disease) Qualifiers: COPD type: emphysema Emphysema type: unspecified Qualified Code(s): J43.9 - Emphysema, unspecified Is this a current diagnosis for this admission?: Yes Plan: Initiate bronchodilator therapy Xopenex hopefully this will be less stimulatory Spiriva and Pulmicort nebulizers and Daliresp
--- NOTE | 2017-11-30 15:29 | PDOC PROGRESS REPORT ---
Subjective Progress Note for:: 11/30/17 Subjective:: Patient has no specific complaints today He has been ambulating with physical therapy is doing well Planning to be discharged in a.m. Reason For Visit: COPD EXCAERBATION Physical Exam Vital Signs: Temp Pulse Resp BP Pulse Ox 97.8 F 60 20 111/73 100 11/30/17 12:11 11/30/17 14:00 11/30/17 12:11 11/30/17 12:11 11/30/17 12:11 Intake & Output 11/29/17 11/30/17 12/01/17 00:59 00:59 00:59 Intake Total 0820 469 4840 Output Total 5775 2600 3500 Balance -4754 Weight 114.5 kg 112.7 kg 110.2 kg General appearance: PRESENT: no acute distress, obese, well-developed, well- nourished, other - Chronically ill Head exam: PRESENT: atraumatic, normocephalic Eye exam: PRESENT: conjunctiva pink, EOMI, PERRLA. ABSENT: scleral icterus Ear exam: PRESENT: normal external ear exam Mouth exam: PRESENT: moist, neck supple, tongue midline Neck exam: PRESENT: carotid bruit, full ROM Respiratory exam: PRESENT: few basilar rales , clear symmetrical, unlabored Cardiovascular exam: PRESENT: RRR. ABSENT: diastolic murmur, rubs, systolic murmur Pulses: PRESENT: normal carotid pulses, normal radial pulses GI/Abdominal exam: PRESENT: firm, hypoactive bowel sounds, soft Rectal exam: PRESENT: deferred Extremities exam: PRESENT: calf tenderness, pedal edema, +1 edema - Lower leg. Left AKA, other Neurological exam: PRESENT: alert, awake, oriented to person, oriented to place , oriented to time, oriented to situation, CN II-XII grossly intact. ABSENT: motor sensory deficit Psychiatric exam: PRESENT: anxious Skin exam: PRESENT: abrasion, skin tears - Chronic venous stasis color changes of the right lower extremity, warm, other Results Laboratory Results: 11/24/17 06:25 11/30/17 05:18 11/30/17 05:18 Sodium 141.8 Potassium 4.0 Chloride 98 Carbon Dioxide 38 H Anion Gap 6 BUN 91 H Creatinine 2.74 H Est GFR ( Amer) 27 L Est GFR (Non-Af Amer) 23 L Glucose 208 H Calcium 8.9 11/12/17 11/14/17 11/27/17 23:18 14:21 05:20 Troponin I 0.045 NT-Pro-B Natriuret Pep 2810 H 1540 H Impressions: Head CT 11/25/17 00:00 IMPRESSION: CHRONIC CHANGES OF ATROPHY AND MICROVASCULAR ISCHEMIA. NO ACUTE PROCESS. EVIDENCE OF ACUTE STROKE: NO. Chest X-Ray 11/26/17 12:46 IMPRESSION: No acute findings Assessment & Plan - Diagnosis (1) History of implantable cardioverter-defibrillator (ICD) placement Is this a current diagnosis for this admission?: Yes (2) Acute on chronic diastolic heart failure Is this a current diagnosis for this admission?: Yes (3) Acute and chronic respiratory failure Qualifiers: Respiratory failure complication: hypoxia and hypercapnia Qualified Code(s) : J96.21 - Acute and chronic respiratory failure with hypoxia; J96.22 - Acute and chronic respiratory failure with hypercapnia; J96.22 - Acute and chronic respiratory failure with hypercapnia; J96.22 - Acute and chronic respiratory failure with hypercapnia Is this a current diagnosis for this admission?: Yes (4) PVD (peripheral vascular disease) Is this a current diagnosis for this admission?: Yes (5) CKD (chronic kidney disease), stage IV Is this a current diagnosis for this admission?: Yes - Time Time Spent with patient: Continue present management Diuretics were decreased as per Dr. Mcdonald Discharge in a.m. with home PT Time Spent with patient: 25-34 minutes
--- NOTE | 2017-11-30 19:37 | PDOC PROGRESS REPORT ---
Subjective Progress Note for:: 11/29/17 Subjective:: Patient seen on morning rounds. No significant change in patient's condition. Patient remains with swelling of upper extremity, right lower extremity and some ulcerations which are all covered up, but this is significantly improved from admission. Patient is denying any chest, neck discomfort. He has some baseline shortness of breath but denied any worsening. Patient just feels generally weak. Patient claims he is ready to go home but need to be able to walk before he can be discharged. Today he walked with PT with walker. Patient claims to be doing better. Patient claims that he is working with physical therapy now. Patient is atrial paced rhythm. No sustained tachycardia or bradycardia arrhythmias noted. Review of systems: Rest review of systems negative. Medications: Medications have been reviewed. Reason For Visit: COPD EXCAERBATION Physical Exam Vital Signs: Temp Pulse Resp BP Pulse Ox 98.6 F 61 20 90/50 L 100 11/29/17 19:14 11/29/17 19:14 11/29/17 19:14 11/29/17 19:26 11/29/17 19:14 Intake & Output 11/28/17 11/29/17 11/30/17 06:59 06:59 06:59 Intake Total 1139 1015 540 Output Total 4221 6442 1600 Balance -3372 -5249 -1064 Weight 114.5 kg 112.7 kg Exam: GENERAL: well-nourished and comfortable in no acute. Alert and oriented x3 HEAD: Atraumatic, normocephalic. EYES: Pupils equal round and reactive to light, extraocular movements intact, sclera anicteric, conjunctiva are normal. ENT: TMs normal, nares patent, oropharynx clear without exudates. Moist mucous membranes. No oral ulcerations or bleeding gums noted NECK: supple without lymphadenopathy. Trachea is central. No cervical or axillary lymphadenopathy noted. Carotids are 2+, JVD not elevated LUNGS: Respiration seems nonlabored, no significant accessory muscle action noted. Bilateral coarse crackles noted. Mild wheezes rales or rhonchi noted. No significant dullness noted on percussion. CHEST: Palpation of the chest wall shows no significant chest wall tenderness. No other significant abnormalities noted. 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 ABDOMEN: Soft, no significant tenderness appreciated, normoactive bowel sounds. No guarding, no rebound. No rigidity noted . No masses appreciated. EXTREMITIES: left below the knee amputation. The right leg has wound that is is covered up. 1+ edema noted of the right lower extremity with some superficial ulcerations. NEUROLOGICAL: Focused neurological exam showed no significant neurologic deficit. Normal speech, no focal weakness appreciated. PSYCH: Normal mood, normal affect. Judgment and insight within normal limits. SKIN: No significant ecchymosis, rash, signs of pruritus noted. Patient does have some ulcerations, which is superficial and covered with bandages. MUSCULOSKELETAL EXAM: No significant joint swelling noted. Results Laboratory Results: 11/24/17 06:25 11/29/17 14:24 11/29/17 14:24 Sodium 140.7 Potassium 4.1 Chloride 94 L Carbon Dioxide 36 H Anion Gap 11 BUN 82 H Creatinine 2.60 H Est GFR ( Amer) 29 L Est GFR (Non-Af Amer) 24 L Glucose 185 H Calcium 9.0 11/12/17 11/14/17 11/27/17 23:18 14:21 05:20 Troponin I 0.045 NT-Pro-B Natriuret Pep 2810 H 1540 H Impressions: Head CT 11/25/17 00:00 IMPRESSION: CHRONIC CHANGES OF ATROPHY AND MICROVASCULAR ISCHEMIA. NO ACUTE PROCESS. EVIDENCE OF ACUTE STROKE: NO. Chest X-Ray 11/26/17 12:46 IMPRESSION: No acute findings Assessment & Plan - Diagnosis (1) CHF exacerbation Is this a current diagnosis for this admission?: Yes (2) COPD (chronic obstructive pulmonary disease) Qualifiers: COPD type: emphysema Emphysema type: unspecified Qualified Code(s): J43.9 - Emphysema, unspecified Is this a current diagnosis for this admission?: Yes (3) Coronary artery disease Qualifiers: Coronary Disease-Associated Artery/Lesion type: unspecified vessel or lesion type [place] vs. 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 insulin use status Qualified Code(s): E11.8 - Type 2 diabetes mellitus with unspecified complications Is this a current diagnosis for this admission?: Yes (5) Hyperlipidemia Qualifiers: Hyperlipidemia type: unspecified Qualified Code(s): E78.5 - Hyperlipidemia , unspecified Is this a current diagnosis for this admission?: Yes (6) Hypertension Qualifiers: Hypertension type: essential hypertension Qualified Code(s): I10 - Essential (primary) hypertension Is this a current diagnosis for this admission?: Yes (7) PVD (peripheral vascular disease) Is this a current diagnosis for this admission?: Yes (8) History of implantable cardioverter-defibrillator (ICD) placement Is this a current diagnosis for this admission?: Yes - Notes Notes: CHF exacerbation: Continue with current regimen. Patient has improved significantly. Continue current doses of diuretics. COPD: Agree with current management plans. Patient has been seen by rn telehealth and management has been optimized. Patient understands that he needs to use intermittent positive pressure ventilation whenever he is trying to sleep. Coronary artery disease: Currently symptomatically stable without any angina symptoms. Diabetes: Recommend good management of diabetes but avoid any hypo-or hyperglycemia. Chronic kidney disease: Significant stage IV. Patient being followed by search lead. Hypertension: Blood pressure goal should be 135/85 or less but could well be more liberal in this patient because of Multiple other comorbidities. PVD with wound infection: This seems resolved. Patient will benefit from follow -up with wound care physician. Apparently he sees someone in [place] for this condition as well. History of ICD placement: Telemetry strips shows a paced rhythm. Patient to make an appointment with marker assembler in [place] for having battery change out. General debility: Patient has improved. He is working with PT. Patient also encouraged to walk when his family members or friends around. These recommendations remain. - Time Time with patient: 15-25 minutes - CODE STATUS was discussed, patient remains full code. Surrogate decision-maker unchanged. Multiple medical problems were addressed. More than 50% of the time spent coordinating care, discussing management plans with involved caregivers. Management plans discussed with involved personnels. Medical decision making was of moderate to high complexity , patient's has multiple comorbidities. Medications reviewed and adjusted accordingly: Yes
--- NOTE | 2017-11-30 19:38 | PDOC PROGRESS REPORT ---
Subjective Progress Note for:: 11/30/17 Subjective:: Patient seen on morning rounds. No significant change in patient's condition. Patient is denying any chest, neck discomfort. He has some baseline shortness of breath but denied any worsening. Patient just feels generally weak. Today he walked with PT with walker. Patient claims to be doing better. Patient claims that he is working with physical therapy now. Patient is atrial paced rhythm. No sustained tachycardia or bradycardia arrhythmias noted. Review of systems: Rest review of systems negative. Medications: Medications have been reviewed. Reason For Visit: COPD EXCAERBATION Physical Exam Vital Signs: Temp Pulse Resp BP Pulse Ox 97.6 F 60 18 126/50 H 95 11/30/17 17:00 11/30/17 19:00 11/30/17 17:00 11/30/17 17:00 11/30/17 17:00 Intake & Output 11/29/17 11/30/17 12/01/17 06:59 06:59 06:59 Intake Total 1015 1615 956 Output Total 4620 4200 2100 Balance -1821 -2892 -114 Weight 112.7 kg 110.2 kg Exam: GENERAL: well-nourished and comfortable in no acute. Alert and oriented x3 HEAD: Atraumatic, normocephalic. EYES: Pupils equal round and reactive to light, extraocular movements intact, sclera anicteric, conjunctiva are normal. ENT: TMs normal, nares patent, oropharynx clear without exudates. Moist mucous membranes. No oral ulcerations or bleeding gums noted NECK: supple without lymphadenopathy. Trachea is central. No cervical or axillary lymphadenopathy noted. Carotids are 2+, JVD not elevated LUNGS: Respiration seems nonlabored, no significant accessory muscle action noted. Bilateral coarse crackles noted. Mild wheezes rales or rhonchi noted. No significant dullness noted on percussion. CHEST: Palpation of the chest wall shows no significant chest wall tenderness. No other significant abnormalities noted. 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 ABDOMEN: Soft, no significant tenderness appreciated, normoactive bowel sounds. No guarding, no rebound. No rigidity noted . No masses appreciated. EXTREMITIES: left below the knee amputation. The right leg has wound that is is covered up. Trace to 1 + edema noted of the right lower extremity with some superficial ulcerations. NEUROLOGICAL: Focused neurological exam showed no significant neurologic deficit. Normal speech, no focal weakness appreciated. PSYCH: Normal mood, normal affect. Judgment and insight within normal limits. SKIN: No significant ecchymosis, rash, signs of pruritus noted. Patient does have some ulcerations, which is superficial and covered with bandages. MUSCULOSKELETAL EXAM: No significant joint swelling noted. Results Laboratory Results: 11/24/17 06:25 11/30/17 05:18 11/30/17 05:18 Sodium 141.8 Potassium 4.0 Chloride 98 Carbon Dioxide 38 H Anion Gap 6 BUN 91 H Creatinine 2.74 H Est GFR ( Amer) 27 L Est GFR (Non-Af Amer) 23 L Glucose 208 H Calcium 8.9 11/12/17 11/14/17 11/27/17 23:18 14:21 05:20 Troponin I 0.045 NT-Pro-B Natriuret Pep 2810 H 1540 H EKG Comments: Shows atrial paced rhythm. No significant tachycardia or bradycardia arrhythmias noted. Impressions: Head CT 11/25/17 00:00 IMPRESSION: CHRONIC CHANGES OF ATROPHY AND MICROVASCULAR ISCHEMIA. NO ACUTE PROCESS. EVIDENCE OF ACUTE STROKE: NO. Chest X-Ray 11/26/17 12:46 IMPRESSION: No acute findings Assessment & Plan - Diagnosis (1) CHF exacerbation Is this a current diagnosis for this admission?: Yes (2) COPD (chronic obstructive pulmonary disease) Qualifiers: Qualified Code(s): J43.9 - Emphysema, unspecified Is this a current diagnosis for this admission?: Yes (3) Coronary artery disease Qualifiers: Qualified Code(s): I25.10 - Atherosclerotic heart disease of [place] coronary artery without angina pectoris Is this a current diagnosis for this admission?: Yes (4) DM type 2 (diabetes mellitus, type 2) Qualifiers: Qualified Code(s): E11.8 - Type 2 diabetes mellitus with unspecified complications Is this a current diagnosis for this admission?: Yes (5) Hyperlipidemia Qualifiers: Qualified Code(s): E78.5 - Hyperlipidemia, unspecified Is this a current diagnosis for this admission?: Yes (6) Hypertension Qualifiers: Qualified Code(s): I10 - Essential (primary) hypertension Is this a current diagnosis for this admission?: Yes (7) PVD (peripheral vascular disease) Is this a current diagnosis for this admission?: Yes (8) History of implantable cardioverter-defibrillator (ICD) placement Is this a current diagnosis for this admission?: Yes - Notes Notes: No changes in patient medication made. His likely to be discharged tomorrow. He will be traveling to [place] with his family member/friend for a electrophysiological appointment. He does understands that he needs a battery change out. CHF exacerbation: Continue with current regimen. Patient has improved significantly. Continue current doses of diuretics. COPD: Agree with current management plans. Patient has been seen by fur polisher and management has been optimized. Patient understands that he needs to use intermittent positive pressure ventilation whenever he is trying to sleep. Coronary artery disease: Currently symptomatically stable without any angina symptoms. Diabetes: Recommend good management of diabetes but avoid any hypo-or hyperglycemia. Chronic kidney disease: Significant stage IV. Patient being followed by finished hardware erector. Hypertension: Blood pressure goal should be 135/85 or less but could well be more liberal in this patient because of Multiple other comorbidities. PVD with wound infection: Seems resolved. Patient however would need close follow-up with wound care physician. History of ICD placement: Telemetry strips shows a paced rhythm. Patient to make an appointment with precision instrument maker in [place] for having battery change out. General debility: Patient has improved. He is working with PT. Patient also encouraged to walk when his family members or friends around. These recommendations remain - Time Time with patient: 15-25 minutes - CODE STATUS was discussed, patient remains full code. Surrogate decision-maker unchanged. Multiple medical problems were addressed. More than 50% of the time spent coordinating care, discussing management plans with involved caregivers. Management plans discussed with involved personnels. Medical decision making was of moderate to high complexity , patient's has multiple comorbidities. Medications reviewed and adjusted accordingly: Yes
[2017-11-30] MEDS: INSULIN GLARGINE,HUM.REC.ANLOG 300 UNIT/3 ML INSULN.PEN SUBCUT SCH (22:57)
[2017-11-30] MEDS: ATORVASTATIN CALCIUM 40 MG TABLET PO SCH (22:57)
[2017-11-30] MEDS: METOPROLOL SUCCINATE 25 MG TAB.SR.24H PO SCH (22:57)
[2017-11-30] MEDS: TAMSULOSIN HCL 0.4 MG CAP.SR.24H PO SCH (22:59)
[2017-11-30] MEDS: MONTELUKAST SODIUM 10 MG TABLET PO SCH (22:59)
[2017-11-30] MEDS: FINASTERIDE 5 MG TABLET PO SCH (22:59)
[2017-11-30] MEDS: SILVER SULFADIAZINE 1% CREAM 25 GM TP SCH (23:00)
[2017-12-01] MEDS: LANSOPRAZOLE 30 MG TAB.RAP.DR PO SCH (06:02)
[2017-12-01] MEDS: OXYCODONE-ACETAMINOPHEN 5-325 MG TABLET PO PRN (06:36)
[2017-12-01 08:21] VITALS: BP 114/56
[2017-12-01] MEDS: INSULIN REG, HUMAN 100 UNIT/ML 3 ML VIAL (PYX) SUBCUT PRN (09:17)
[2017-12-01] MEDS: MULTIVITAMIN TABLET PO SCH (09:17)
[2017-12-01] MEDS: PREGABALIN 75 MG CAPSULE PO SCH (09:18)
[2017-12-01] MEDS: ALLOPURINOL 300 MG TABLET PO SCH (09:18)
[2017-12-01] MEDS: PREDNISONE 20 MG TABLET PO SCH (09:19)
[2017-12-01] MEDS: ROFLUMILAST 500 MCG TABLET PO SCH (09:19)
[2017-12-01] MEDS: SENNOSIDES/DOCUSATE 8.6-50 MG 1 EACH TABLET PO SCH (09:19)
[2017-12-01] MEDS: ASPIRIN 81 MG TABLET, ENT COATED PO SCH (09:19)
[2017-12-01] MEDS: MAGNESIUM OXIDE 400 MG TABLET PO SCH (09:20)
[2017-12-01] MEDS: CHOLECALCIFEROL (D3) 400 UNIT TABLET PO SCH (09:20)
[2017-12-01] MEDS: RANOLAZINE 500 MG TAB.SR.12H PO SCH (09:20)
[2017-12-01] MEDS: ISOSORBIDE MONONITRATE 30 MG TAB.ER.24H PO SCH (09:21)
[2017-12-01] MEDS: FLUTICASONE/SALMETEROL DISKUS 500-50 MCG/DOSE IH SCH (09:21)
[2017-12-01] MEDS: POTASSIUM CHLORIDE 10 MEQ TABLET.SA PO SCH (09:21)
[2017-12-01] MEDS: TIOTROPIUM BROMIDE DPI 5 CAP/KIT (18 MCG/CAP) IH SCH (09:23)
[2017-12-01] MEDS: NITROGLYCERIN 2.5 MG (0.1 MG/HR) PATCH.TD24 TD SCH (09:25)
[2017-12-01] MEDS: BUMETANIDE 1 MG TABLET PO SCH (09:26)
[2017-12-01] MEDS: DRONEDARONE HYDROCHLORIDE 400 MG TABLET PO SCH (09:26)
--- NOTE | 2017-12-01 10:04 | PDOC DISCHARGE SUMMARY ---
General - Admit/Disc Date/PCP Admission Date/Primary Care Provider: 11/12/17 21:53 RUY CARTWRIGHT MD Discharge Date: 12/01/17 - Discharge Diagnosis (1) History of implantable cardioverter-defibrillator (ICD) placement Is this a current diagnosis for this admission?: Yes (2) Acute on chronic diastolic heart failure Is this a current diagnosis for this admission?: Yes (3) Acute and chronic respiratory failure Is this a current diagnosis for this admission?: Yes (4) PVD (peripheral vascular disease) Is this a current diagnosis for this admission?: Yes (5) CKD (chronic kidney disease), stage IV Is this a current diagnosis for this admission?: Yes - Additional Information Resuscitation Status: Full Code Discharge Diet: Cardiac, Diabetic Discharge Activity: Activity As Tolerated, Balance Activity w/Rest, Weigh Daily Prescriptions: Metoprolol Succinate [Toprol Xl 25 mg Tab.sr] 25 mg PO QHS 30 Days #30 tab.sr.24h Metolazone 2.5 mg PO DAILY 30 Days #30 tablet Nitroglycerin [Nitro-Dur 2.5 mg (0.1 mg/Hr) Transdermal Ptch] 1 each TD DAILY 30 Days #30 patch.td24 Potassium Chloride [Klor-Con 10 Meq Tablet.sa] 30 meq PO Q12 30 Days #60 tablet.sa Home Medications: Albuterol Sulfate [Ventolin HFA MDI 18 GM] 1 puff IH Q6HP PRN 11/13/17 Allopurinol [Zyloprim 300 mg Tablet] 150 mg PO DAILY 11/13/17 Aspirin [Ecotrin 81 mg EC Tablet] 81 mg PO DAILY 11/13/17 Atorvastatin Calcium [Lipitor 40 mg Tablet] 40 mg PO QHS 11/13/17 Budesonide/Formoterol Fumarate [Symbicort 160-4.5 Mcg Inhaler] 2 puff IH Q12 07/21 Cholecalciferol (Vitamin D3) [Vitamin D3 400 Unit Tablet] 400 unit PO DAILY 07/21 Dronedarone Hydrochloride [Multaq 400 mg Tablet] 400 mg PO Q12 11/13/17 Finasteride [Proscar 5 mg Tablet] 5 mg PO QHS 11/13/17 Hydrocodone/Acetaminophen [Hydrocodone-Acetamin 10-325 mg] 1 tab PO Q6HP PRN 07/21 Isosorbide Mononitrate [Imdur 30 mg Tablet.er] 90 mg PO DAILY 11/13/17 Magnesium Oxide [Mag-Ox 400 mg Tablet] 400 mg PO BID 11/13/17 Montelukast Sodium [Singulair 10 mg Tablet] 10 mg PO QHS 11/13/17 Multivitamin [Tab-A-Maris (Multiple Vitamin) Tablet] 1 tab PO DAILY 11/13/17 Omeprazole 20 mg PO DAILY 11/13/17 Polyethylene Glycol 3350 [Miralax Powder 17 gm/Packet] 17 gm PO QPMP PRN Pregabalin [Lyrica] 150 mg PO Q12 11/13/17 Ranolazine [Ranexa 500 mg Tab.sr] 1,000 mg PO Q12 11/13/17 Sennosides/Docusate 8.6-50 mg [Senna Plus Tablet] 1 tab PO BID 11/13/17 Tamsulosin HCl [Flomax 0.4 mg Cap.sr] 0.8 mg PO QHS 11/13/17 Terazosin HCl 1 mg PO DAILY 11/13/17 Tiotropium [place] [Spiriva Handihaler 5 Cap/Kit (18 Mcg/Cap)] 1 puff IH DAILY 11/13/17 Warfarin Sodium [Coumadin 2 mg Tablet] 2 mg PO QHS 11/13/17 Zolpidem Tartrate [Ambien 5 mg Tablet] 5 mg PO HSP PRN 11/13/17 Bumetanide [Bumex 2 mg Tablet] 2 mg PO BID #60 11/30/17 Insulin Glargine,Hum.rec.anlog [Lantus Solostar] 30 unit SQ QHS 30 Days #1 pe Metolazone 2.5 mg PO DAILY 30 Days #30 tablet 11/30/17 Metoprolol Succinate [Toprol Xl 25 mg Tab.sr] 25 mg PO QHS 30 Days #30 tab.sr.24h 11/30/17 Nitroglycerin [Nitro-Dur 2.5 mg (0.1 mg/Hr) Transdermal Ptch] 1 each TD DAILY 30 Days #30 patch.td24 11/30/17 Potassium Chloride [Klor-Con 10 Meq Tablet.sa] 30 meq PO Q12 30 Days #60 tablet.sa 11/30/17 History of Present Illness Patient complains of: Edema shortness of breath History of Present Illness: TRUONG PINK is a 77 year old male With a history of atrial fibrillation on Multaq and Coumadin, and AICD with pacemaker, peripheral vascular disease, ischemic heart disease post coronary artery bypass graft, congestive heart failure with a EF of 30-35% and moderate diastolic failure with pulmonary hypertension, obstructive sleep apnea, diabetes and stage III renal failure, posttraumatic splenectomy and Metzger with ascites presenting with increased swelling and shortness of breath. He was treated in the ED with IV Lasix and placed on BiPAP support Subsequently admitted to [facility] under hospitalist service Hospital Course Hospital Course: Patient had an extremely prolonged stay in the hospital during which his medical treatment was optimized He was evaluated (1) CHF exacerbation Patient's medical management was reevaluated Diuretics were increased Patient's edema decreased greatly His respiratory status improved He is to continue present diuretics and follow-up with cardiology (2)COPD EXACERBATION Patient was followed by Dr. Dash who reevaluated his medical management patient is feeling comfortable on the nasal cannula (3) Coronary artery disease Stable Troponins remain in the interval intermediate range There was no evidence of an acute coronary syndrome (4) DM type 2 (diabetes mellitus, type 2) Prior regimen was continued (5) Hyperlipidemia Prior meds continued (6) Hypertension Controlled at discharge (7) PVD (peripheral vascular disease) Significant peripheral vascular disease Follow-up with vascular surgery as an outpatient was advised (8) History of implantable cardioverter-defibrillator (ICD) placement patient will be seen at [facility] for battery change (9 )chronic anticoagulation - afib Coumadin was resumed at discharge (10) ambulatory dysfunction Patient was discharged with home health and home PT (11)CKD stage 4 Creatinine was 2.7 at discharge Physical Exam Vital Signs: Temp Pulse Resp BP Pulse Ox 97.6 F 57 L 16 114/56 L 98 12/01/17 08:28 12/01/17 08:28 12/01/17 08:28 12/01/17 08:28 12/01/17 08:28 Intake & Output 11/30/17 12/01/17 12/02/17 00:59 00:59 00:59 Intake Total 545 2031 820 Output Total 2600 2920 2400 Balance -8 -4587 -9083 Weight 112.7 kg 110.2 kg 108.2 kg General appearance: PRESENT: no acute distress, obese, well-developed, well- nourished, other - Chronically ill Head exam: PRESENT: atraumatic, normocephalic Eye exam: PRESENT: conjunctiva pink, EOMI, PERRLA. ABSENT: scleral icterus Ear exam: PRESENT: normal external ear exam Mouth exam: PRESENT: moist, neck supple, tongue midline Neck exam: PRESENT: carotid bruit, full ROM Respiratory exam: PRESENT: few basilar rales , clear symmetrical, unlabored Cardiovascular exam: PRESENT: RRR. ABSENT: diastolic murmur, rubs, systolic murmur Pulses: PRESENT: normal carotid pulses, normal radial pulses GI/Abdominal exam: PRESENT: firm, hypoactive bowel sounds, soft Rectal exam: PRESENT: deferred Extremities exam: PRESENT: calf tenderness, pedal edema, +1 edema - Lower leg. Left AKA, other Neurological exam: PRESENT: alert, awake, oriented to person, oriented to place , oriented to time, oriented to situation, CN II-XII grossly intact. ABSENT: motor sensory deficit Psychiatric exam: PRESENT: anxious Skin exam: PRESENT: abrasion, skin tears - Chronic venous stasis color changes of the right lower extremity, warm, other Results Laboratory Results: 11/24/17 06:25 11/30/17 05:18 11/12/17 11/14/17 11/27/17 23:18 14:21 05:20 Troponin I 0.045 NT-Pro-B Natriuret Pep 2810 H 1540 H Impressions: Head CT 11/25/17 00:00 IMPRESSION: CHRONIC CHANGES OF ATROPHY AND MICROVASCULAR ISCHEMIA. NO ACUTE PROCESS. EVIDENCE OF ACUTE STROKE: NO. Chest X-Ray 11/26/17 12:46 IMPRESSION: No acute findings Qualifiers - * PATEINT BEING DISCHARGED WITH ANY OF THE FOLLOWING DIAGNOSIS?: Heart Failure VTE patient discharged on overlapping Therapy?: No Reason(s) for not prescribing Overlap Therapy:: Medical Contraindication HF Pt being discharged on ACEI for LVEF less than 40%?: No Reason(s) for not prescribing ACEI:: Medical Contraindication - renal failure HF Pt being discharged on ARBS for LVEF less than 40%?: No Reason(s) for not prescribing ARBS:: Medical Contraindication - renal failure HF Pt with Afib discharged with Warfarin?: Yes HF Pt discharged on evidence-based Beta Roger:: Yes
--- NOTE | 2017-12-01 20:00 | PDOC PROGRESS REPORT ---
Subjective Progress Note for:: 12/01/17 Subjective:: Patient seen on morning rounds. Patient is denying any chest, neck discomfort. He has some baseline shortness of breath but denied any worsening. Patient seems excited about being discharged today. Patient claims to be doing better. Patient is now able to walk with a walker. Patient is atrial paced rhythm. No sustained tachycardia or bradycardia arrhythmias noted. Review of systems: Rest review of systems negative. Medications: Medications have been reviewed. Reason For Visit: COPD EXCAERBATION Physical Exam Vital Signs: Temp Pulse Resp BP Pulse Ox 97.6 F 57 L 16 114/56 L 98 12/01/17 08:28 12/01/17 08:28 12/01/17 08:28 12/01/17 08:28 12/01/17 08:28 Intake & Output 11/30/17 12/01/17 12/02/17 06:59 06:59 06:59 Intake Total 1615 1776 Output Total 4200 4500 Balance -2585 -1644 Weight 110.2 kg 108.2 kg Exam: GENERAL: well-nourished and comfortable in no acute. Alert and oriented x3 HEAD: Atraumatic, normocephalic. EYES: Pupils equal round and reactive to light, extraocular movements intact, sclera anicteric, conjunctiva are normal. ENT: TMs normal, nares patent, oropharynx clear without exudates. Moist mucous membranes. No oral ulcerations or bleeding gums noted NECK: supple without lymphadenopathy. Trachea is central. No cervical or axillary lymphadenopathy noted. Carotids are 2+, JVD not elevated LUNGS: Respiration seems nonlabored, no significant accessory muscle action noted. Bilateral coarse crackles noted. Mild wheezes rales or rhonchi noted. No significant dullness noted on percussion. CHEST: Palpation of the chest wall shows no significant chest wall tenderness. No other significant abnormalities noted. HEART: [place] SALES ADVISOR, No PSH, 1/6 MAGGIE aortic area, 1/6 recinos systolic murmur mitral area, no rubs, no gallops. ABDOMEN: Soft, no significant tenderness appreciated, normoactive bowel sounds. No guarding, no rebound. No rigidity noted . No masses appreciated. EXTREMITIES: left below the knee amputation. The right leg has wound that is is covered up. Trace to 1 + edema noted of the right lower extremity with some superficial ulcerations. NEUROLOGICAL: Focused neurological exam showed no significant neurologic deficit. Normal speech, no focal weakness appreciated. PSYCH: Normal mood, normal affect. Judgment and insight within normal limits. SKIN: No significant ecchymosis, rash, signs of pruritus noted. Patient does have some ulcerations, which is superficial and covered with bandages. MUSCULOSKELETAL EXAM: No significant joint swelling noted. Results Laboratory Results: 11/24/17 06:25 11/30/17 05:18 11/12/17 11/14/17 11/27/17 23:18 14:21 05:20 Troponin I 0.045 NT-Pro-B Natriuret Pep 2810 H 1540 H Impressions: Head CT 11/25/17 00:00 IMPRESSION: CHRONIC CHANGES OF ATROPHY AND MICROVASCULAR ISCHEMIA. NO ACUTE PROCESS. EVIDENCE OF ACUTE STROKE: NO. Chest X-Ray 11/26/17 12:46 IMPRESSION: No acute findings Assessment & Plan - Diagnosis (1) CHF exacerbation Is this a current diagnosis for this admission?: Yes (2) COPD (chronic obstructive pulmonary disease) Qualifiers: COPD type: emphysema Emphysema type: unspecified Qualified Code(s): J43.9 - Emphysema, unspecified Is this a current diagnosis for this admission?: Yes (3) Coronary artery disease Qualifiers: Coronary Disease-Associated Artery/Lesion type: unspecified vessel or lesion type [place] vs. transplanted heart: jackson heart Associated angina: angina presence unspecified Qualified Code(s): I25.10 - Atherosclerotic heart disease of jackson coronary artery without angina pectoris Is this a current diagnosis for this admission?: Yes (4) DM type 2 (diabetes mellitus, type 2) Qualifiers: Diabetes mellitus complication status: with unspecified complications Diabetes mellitus detention insulin use: unspecified detention insulin use status Qualified Code(s): E11.8 - Type 2 diabetes mellitus with unspecified complications Is this a current diagnosis for this admission?: Yes (5) Hyperlipidemia Qualifiers: Hyperlipidemia type: unspecified Qualified Code(s): E78.5 - Hyperlipidemia , unspecified Is this a current diagnosis for this admission?: Yes (6) Hypertension Qualifiers: Hypertension type: essential hypertension Qualified Code(s): I10 - Essential (primary) hypertension Is this a current diagnosis for this admission?: Yes (7) PVD (peripheral vascular disease) Is this a current diagnosis for this admission?: Yes (8) History of implantable cardioverter-defibrillator (ICD) placement Is this a current diagnosis for this admission?: Yes - Notes Notes: Patient is being discharged today. He does have a appointment with Dr. Machuca for defibrillator follow-up. He does have other doctors especially vascular surgeon in [place] with which she would need to follow-up. Patient also encouraged to make follow-up appointment with his primary care enterprise systems architect. CHF exacerbation: Continue with current regimen. Patient has improved significantly. Patient will be following up with [facility]ology. He has an appointment this afternoon with the evaluation analyst. COPD: Agree with current management plans. Patient has been seen by delivery agent and management has been optimized. Patient understands that he needs to use intermittent positive pressure ventilation whenever he is trying to sleep. Coronary artery disease: Currently symptomatically stable without any angina symptoms. Diabetes: Recommend good management of diabetes but avoid any hypo-or hyperglycemia. Chronic kidney disease: Significant stage IV. Patient being followed by multi township assessor. Hypertension: Blood pressure goal should be 135/85 or less but could well be more liberal in this patient because of Multiple other comorbidities. PVD with wound infection: Seems resolved. Patient however would need close follow-up with wound care physician. History of ICD placement: Telemetry strips shows a paced rhythm. Patient to make an appointment with evaluation analyst in [place] for having battery change out. General debility: Patient has improved. Patient also encouraged to walk when his family members or friends around. These recommendations remain - Time Time with patient: 15-25 minutes - CODE STATUS was discussed, patient remains full code. Surrogate decision-maker unchanged. Multiple medical problems were addressed. More than 50% of the time spent coordinating care, discussing management plans with involved caregivers. Management plans discussed with involved personnels. Medical decision making was of moderate to high complexity , patient's has multiple comorbidities. Medications reviewed and adjusted accordingly: Yes
== END 2017-12-01 10:05 | disposition home health service (06) | DRG 291 ==
LOC: ER 16:48 → EH 21:53 → 3W 11-13 17:08
PROVIDERS: ADMIT Pediatrics; ATTEND Pediatrics
PROC: 5A09557 Assistance with Respiratory Ventilation, Greater than 96 Consecutive Hours, Continuous Positive Airway Pressure (ICD-10-PCS; principal; 2017-11-12)
PROC: 3E0F73Z Introduction of Anti-inflammatory into Respiratory Tract, Via Natural or Artificial Opening (ICD-10-PCS; 2017-11-17)
DX: I13.0 Hypertensive heart and chronic kidney disease with heart failure and stage 1 through stage 4 chronic kidney disease, or unspecified chronic kidney disease (principal); J96.21 Acute and chronic respiratory failure with hypoxia; I50.43 Acute on chronic combined systolic (congestive) and diastolic (congestive) heart failure; J96.22 Acute and chronic respiratory failure with hypercapnia; N18.4 Chronic kidney disease, stage 4 (severe); R18.8 Other ascites; N17.9 Acute kidney failure, unspecified; D69.3 Immune thrombocytopenic purpura; E11.22 Type 2 diabetes mellitus with diabetic chronic kidney disease; E11.51 Type 2 diabetes mellitus with diabetic peripheral angiopathy without gangrene; I27.20 Pulmonary hypertension, unspecified; G47.33 Obstructive sleep apnea (adult) (pediatric); E78.5 Hyperlipidemia, unspecified; I25.10 Atherosclerotic heart disease of native coronary artery without angina pectoris; J43.9 Emphysema, unspecified; I25.9 Chronic ischemic heart disease, unspecified; D63.1 Anemia in chronic kidney disease; I48.2 Chronic atrial fibrillation; K21.9 Gastro-esophageal reflux disease without esophagitis; R23.8 Other skin changes; M19.90 Unspecified osteoarthritis, unspecified site; E78.00 Pure hypercholesterolemia, unspecified; K59.04 Chronic idiopathic constipation; E66.9 Obesity, unspecified; Z68.32 Body mass index [BMI] 32.0-32.9, adult; E11.65 Type 2 diabetes mellitus with hyperglycemia; N40.1 Benign prostatic hyperplasia with lower urinary tract symptoms; R33.8 Other retention of urine; E87.6 Hypokalemia; I25.2 Old myocardial infarction; Z95.1 Presence of aortocoronary bypass graft; Z95.810 Presence of automatic (implantable) cardiac defibrillator; Z79.01 Long term (current) use of anticoagulants; Z79.82 Long term (current) use of aspirin; Z79.4 Long term (current) use of insulin; Z79.899 Other long term (current) drug therapy; Z90.81 Acquired absence of spleen; Z88.3 Allergy status to other anti-infective agents; Z88.0 Allergy status to penicillin; Z86.711 Personal history of pulmonary embolism; Z95.5 Presence of coronary angioplasty implant and graft; Z89.512 Acquired absence of left leg below knee; Z87.891 Personal history of nicotine dependence; Z83.6 Family history of other diseases of the respiratory system; Z82.49 Family history of ischemic heart disease and other diseases of the circulatory system
CPT/HCPCS: 36415; 36600; 70450; 71045; 71046; 80048; 80053; 80076; 81001; 82140; 82550; 82553; 82607; 82728; 82746; 82803; 82962; 83540; 83550; 83735; 83880; 84100; 84466; 84484; 85025; 85045; 85610; 87804; 93005; 93010; 93926; 93970; 94640; 94660; 96374; 96375; 99291; G8978-GP; G8979-GP; J1815; J1940; J2930; J3480; J3490; J7030; J7512; J7620; Q0138

== ENCOUNTER 2017-12-27 10:04 | Emergency (ER) | payer MEDICARE ==
[2017-12-27] MEDS ORDERED: ASPIRIN 81 MG TABLET, CHEWABLE PO ONE (10:17)
[2017-12-27 10:35] LABS: HEMATOCRIT 31.2 % (37.9-51.0); HEMOGLOBIN 10.2 g/dL (13.5-17.0); MEAN CORPUSCULAR HGB CONC 32.5 g/dL (32.0-36.0); MEAN CORPUSCULAR VOLUME 95 fl (80-97); PLATELET COUNT 109 10^3/uL (150-450); RED BLOOD COUNT 3.27 10^6/uL (4.35-5.55); RED CELL DISTRIBUTION WIDTH 18.2 % (11.5-14.0); WHITE BLOOD COUNT 8.2 10^3/uL (4.0-10.5)
[2017-12-27 10:40] LABS: ALANINE AMINOTRANSFERASE 18 U/L (21-72); ALBUMIN 3.1 g/dL (3.5-5.0); ALKALINE PHOSPHATASE 84 U/L (38-126); ASPARTATE AMINO TRANSFERASE 26 U/L (17-59); BILIRUBIN,DIRECT 0.5 mg/dL (0.0-0.4); BILIRUBIN,TOTAL 0.7 mg/dL (0.2-1.3); BLOOD UREA NITROGEN 58 mg/dL (7-20); CALCIUM 9.1 mg/dL (8.4-10.2); CHLORIDE 97 mmol/L (98-107); GLUCOSE 120 mg/dL (75-110); INTERNATIONAL RATION (INR) 1.55; POTASSIUM 4.3 mmol/L (3.6-5.0); PROTHROMBIN TIME 19.6 SEC (11.4-15.4); SODIUM 141.6 mmol/L (137-145); TOTAL PROTEIN 6.2 g/dL (6.3-8.2)
[2017-12-27 10:46] LABS: APPEARANCE,URINE CLEAR; BILIRUBIN,URINE NEGATIVE (NEGATIVE); COLOR,URINE YELLOW; GLUCOSE, URINE NEGATIVE (NEGATIVE); KETONES,URINE NEGATIVE (NEGATIVE); LEUKOCYTE ESTERASE,URINE TRACE (NEGATIVE); NITRITE,URINE NEGATIVE (NEGATIVE); PROTEIN,URINE 30 mg/dL (NEGATIVE); URINE SPECIFIC GRAVITY 1.011; UROBILINOGEN,URINE NEGATIVE mg/dL (<2.0)
[2017-12-27 10:47] LABS: ANION GAP 8 (5-19); CARBON DIOXIDE 37 mmol/L (22-30)
--- NOTE | 2017-12-27 10:55 | ER Document Report ---
ED General - General Mode of Arrival: Ambulatory Information source: Patient TRAVEL OUTSIDE OF THE [place] IN LAST 30 DAYS: No <JOSE L CAMEJO - Last Filed: 12/27/17 17:32> <JOSEPH ROSARIO - Last Filed: 12/30/17 09:24> - General Chief Complaint: Trouble Walking Stated Complaint: BREATHING PROBLEMS Time Seen by Provider: 12/27/17 10:16 Notes: Patient is a 77-year-old male who presents to the emergency department today with complaints of 2-3 days of bilateral upper extremity "tremors". Relative at bedside states that the last time the patient had these symptoms he was found to have an elevated ammonia level. [facility] after having his ICD replaced due to routine maintenance. Patient complains of right lower extremity pain which is chronic secondary to an occlusion that is inoperable. Patient denies any shortness of breath or fevers. (JOSE L CAMEJO) - Related Data Allergies/Adverse Reactions: Penicillins Allergy (Unknown, Verified 12/27/17 10:23) Bwepmpo-Lqk-Aou Reductase Inhibitor Allergy (Verified 12/27/17 10:23) vancomycin [Vancomycin] Adverse Reaction (Verified 12/27/17 10:23) Past Medical History - General Information source: Patient, Relative, [facility] Records - Social History Smoking Status: Former Smoker Cigarette use (# per day): No Chew tobacco use (# tins/day): No Frequency of alcohol use: None Drug Abuse: None Lives with: Family Family History: CAD, COPD Patient has suicidal ideation: No Patient has homicidal ideation: No - Past Medical History Cardiac Medical History: Reports: Hx Atrial Fibrillation, Hx Congestive Heart Failure, Hx Coronary Artery Disease, Hx Heart Attack - x6, Hx Hypercholesterolemia, Hx Hypertension, Hx Peripheral Vascular Disease, Hx Pulmonary Embolism Pulmonary Medical History: Reports: Hx Asthma, Hx Bronchitis, Hx COPD, Hx Sleep Apnea - without c-pap Endocrine Medical History: Reports: Hx Diabetes Mellitus Type 2 Renal/ Medical History: Reports: Hx Benign Prostatic Hyperplasia, Hx Kidney Stones GI Medical History: Reports: Hx Gastroesophageal Reflux Disease Musculoskeltal Medical History: Reports Hx Arthritis Past Surgical History: Reports: Hx Abdominal Surgery - AAA, Hx Cardiac Catheterization, Hx Cardiac Surgery - triple bypass, Hx Coronary Artery Bypass Graft - quadruple, Hx Coronary Stent, Hx Internal Defibrillator, Hx Open Heart Surgery - LATE , Hx Orthopedic Surgery - Left BKA, Hx Pacemaker - Immunizations Hx Diphtheria, Pertussis, Tetanus Vaccination: Yes Hx Pneumococcal Vaccination: 07/04/08 <JOSE L CAMEJO - Last Filed: 12/27/17 17:32> Review of Systems - Review of Systems Constitutional: denies: Fever EENT: No symptoms reported Cardiovascular: No symptoms reported Respiratory: denies: Short of breath Gastrointestinal: No symptoms reported Genitourinary: No symptoms reported Male Genitourinary: No symptoms reported Musculoskeletal: See HPI, Other - chronic RLE pain Skin: No symptoms reported Hematologic/Lymphatic: No symptoms reported Neurological/Psychological: See HPI, Tremor -: Yes All other systems reviewed and negative <JOSE L CAMEJO - Last Filed: 12/27/17 17:32> Physical Exam <JOSE L CAMEJO - Last Filed: 12/27/17 17:32> <JOSEPH ROSARIO - Last Filed: 12/30/17 09:24> - Vital signs Vitals: Pulse Ox 94 12/27/17 10:12 - Notes Notes: Physical Exam: General: Alert, appears at baseline according to records. HEENT: Normocephalic. Atraumatic. PERRL. Extraocular movements intact. Oropharynx clear. Neck: Supple. Non-tender. Respiratory: No respiratory distress. Bibasilar crackles with wheezing bilaterally. Cardiovascular: 2/6 systolic murmur. Regular rate and rhythm. Abdominal: Obese. Non-tender. No distension. Normal Bowel Sounds. Back: Non-tender. No deformity or step off. Extremities: Upper extremities: See skin exam. Mild asterixis bilaterally. Normal ROM. Lower extremities: Left AKA, 1+ edema to RLE, see skin exam. Normal ROM. Neurological: Normal cognition. AAOx4. Normal speech. Psychological: Normal affect. Normal Mood. Skin: Warm. Dry. Chronic stasis dermatitis to all 3 extremities. (JOSE L CAMEJO ) Course - Laboratory Result Diagrams: 12/27/17 09:41 12/27/17 09:41 <JOSE L CAMEJO - Last Filed: 12/27/17 17:32> - Laboratory Result Diagrams: 12/27/17 09:41 12/27/17 09:41 - Diagnostic Test Radiology reviewed: Image reviewed <LONG,JOSEPH H - Last Filed: 12/30/17 09:24> - Re-evaluation Re-evalutation: 12/27/17 17:06 Was alerted that patient has gone into V. tach 12/27/17 17:[address] Garcia who agrees with starting amiodarone 12/27/17 17:11 [facility] to speak to Dr. Luu who is the sign language translator that Dr. rosario spoke with earlier in conjunction with his PCP 12/27/17 17:30 Dr. Luu called back and agrees with plan, states to continue with amiodarone (JOSE L CAMEJO) 12/27/17 12:32 Had in-depth discussion with family at bedside and patient. Patient was just discharged from [facility] yesterday after ICD replacement end of life battery per family. He has been having several days of generalized weakness and is unable to stand due to being weak. He has no concerning acute electrolyte or metabolic abnormalities with workup in the emergency department. Patient appears deconditioned and has multiple chronic medical problems including chronic kidney disease and congestive heart failure. Patient does have vascular congestion. My recommendation is to transfer patient back to [facility] for diuresis and ultimately be placed in a senior living facility as patient is severely decompensated. Per the patient most of his doctors are at that facility including his primary care doctor. He has no evidence of infectious source. He also has been having intermittent twitching that I also observed in his upper and lower extremities on exam. There are no electrolyte or metabolic disturbances to suggest an etiology. This appears to be acute on chronic and has worsened. I feel he could benefit from a neurology consult at [facility] as well. 12/27/17 13:46 Discussed case with alcohol law enforcement agent advised and who knows patient from previous visit. Upon discussion with alcohol law enforcement agent did not feel that cardiology floor was necessary for patient admittance awaiting general medicine consult at this time 12/27/17 13:[address] Zavala advised and who except patient. Advised gentle diuresis with close kidney function monitoring and ultimately patient will need longer term care facility for strength reconditioning 12/27/17 19:51 Patient received cardioversion with 200 J synchronized. Patient was successfully converted from ventricular tachycardia to sinus rhythm. Patient then progressed back to ventricular tachycardia for approximately 5 minutes and then converted back to sinus rhythm for several minutes and then reverted back to ventricular tachycardia. [facility] we consulted and was advised by alcohol law enforcement agent mortuary operations manager to provide 100 mg of lidocaine and then start lidocaine and 4 mg/min. patient states that he felt a shock and converted back to sinus rhythm. Patient will be air lifted to [facility] for further higher level of care (JOSEPH ROSARIO) - Vital Signs Vital signs: Temp Pulse Resp BP Pulse Ox 98.7 F 63 18 121/52 L 98 12/27/17 20:30 12/27/17 19:24 12/27/17 20:26 12/27/17 20:26 12/27/17 20:26 - Laboratory Laboratory results interpreted by me: 12/27/17 12/27/17 12/27/17 09:41 09:41 09:41 RBC 3.27 L Hgb 10.2 L Hct 31.2 L RDW 18.2 H Plt Count 109 L Seg Neuts % (Manual) 80 H Band Neutrophils % 1 L Lymphocytes % (Manual) 8 L PT Chloride 97 L Carbon Dioxide 37 H BUN 58 H Creatinine 2.73 H Est GFR ( Amer) 27 L Est GFR (Non-Af Amer) 23 L Glucose 120 H POC Glucose Direct Bilirubin 0.5 H ALT 18 L NT-Pro-B Natriuret Pep 1890 H Total Protein 6.2 L Albumin 3.1 L Urine Protein Ur Leukocyte Esterase 12/27/17 12/27/17 12/27/17 09:41 10:30 15:18 RBC Hgb Hct RDW Plt Count Seg Neuts % (Manual) Band Neutrophils % Lymphocytes % (Manual) PT 19.6 H Chloride Carbon Dioxide BUN Creatinine Est GFR ( Amer) Est GFR (Non-Af Amer) Glucose POC Glucose 145 H Direct Bilirubin ALT NT-Pro-B Natriuret Pep Total Protein Albumin Urine Protein 30 H Ur Leukocyte Esterase TRACE H - EKG Interpretation by Me Additional EKG results interpreted by me: 12/27/17 13:57 Rate is 60 atrial paced rhythm normal axis nonspecific ST abnormalities (JOSEPH ROSARIO) Critical Care Note - Critical Care Note Total time excluding time spent on procedures (mins): 105 <JOSEPH ROSARIO - Last Filed: 12/30/17 09:24> Discharge <JOSE L CAMEJO - Last Filed: 12/27/17 17:32> - Discharge Admitting Provider: [facility] Dr Chan <JOSEPH ROSARIO - Last Filed: 12/30/17 09:24> - Discharge Clinical Impression: Ventricular tachyarrhythmia Condition: Critical Disposition: [facility] Scribe Documentation - Scribe Written by Scribe:: Robert Wiley, 12/27/2017 1150 acting as scribe for :: Issa <JOSE L CAMEJO - Last Filed: 12/27/17 17:32>
--- NOTE | 2017-12-27 10:57 | RADIOLOGY REPORT (SQ) ---
EXAM DESCRIPTION: CHEST PA/LAT COMPLETED DATE/TIME: 12/27/2017 10:40 am REASON FOR STUDY: SOB COMPARISON: 11/26/2017 EXAM PARAMETERS: NUMBER OF VIEWS: two views TECHNIQUE: Digital Frontal and Lateral radiographic views of the chest acquired. RADIATION DOSE: NA LIMITATIONS: none FINDINGS: LUNGS AND PLEURA: No opacities, masses or pneumothorax. No pleural effusion. The previous ly described chronic appearing changes are stable P MEDIASTINUM AND HILAR STRUCTURES: No masses or contour abnormalities. HEART AND VASCULAR STRUCTURES: Cardiac silhouette remains enlarged. There is pulmonary vascular natali estion BONES: No acute findings. HARDWARE: AICD device is unchanged in position. Patient is status post median sternotomy OTHER: No other significant finding. IMPRESSION: Cardiomegaly with pulmonary vascular congestion. No acute consolidations or pleural eff usions are identified. Other findings as noted above TECHNICAL DOCUMENTATION: JOB ID: [id number] [employer]- All Rights Reserved Reading location - IP/workstation name: [email or web address]
[2017-12-27 11:05] LABS: ABSOLUTE LYMPHOCYTES# (MANUAL) 0.7 10^3/uL (0.5-4.7); ABSOLUTE MONOCYTES # (MANUAL) 0.9 10^3/uL (0.1-1.4); ABSOLUTE NEUTROPHILS# (MANUAL) 6.6 10^3/uL (1.7-8.2); BAND NEUTROPHILS % (MANUAL) 1 % (3-5); BASOPHILS % (MANUAL) 0 % (0-2); EOSINOPHILS % (MANUAL) 0 % (0-6); LYMPHOCYTES % (MANUAL) 8 % (13-45); MONOCYTES % (MANUAL) 11 % (3-13); SEGMENTED NEUTROPHILS % (MAN) 80 % (42-78); TOTAL CELLS COUNTED 100; TROPONIN I 0.023 ng/mL
[2017-12-27 11:06] LABS: ANISOCYTOSIS 1+; PLATELET COMMENT DECREASED
[2017-12-27] MEDS ORDERED: HYDROCODONE/ACETAMINOPHEN 5-325 MG TABLET PO ONE (11:15)
--- NOTE | 2017-12-27 14:20 | EKG REPORT ---
SEVERITY:- ABNORMAL ECG - ATRIAL-PACED RHYTHM NONSPECIFIC INTRAVENTRICULAR CONDUCTION DELAY INFERIOR INFARCT, OLD NONSPECIFIC ANTEROLATERAL ST-T CHANGES : Confirmed by: Rosalio Lawrence MD 27-Dec-2017 14:19:41
[2017-12-27] MEDS ORDERED: AMIODARONE HCL INJ 150 MG/3 ML VIAL IV ONE ×3 (17:06→17:34)
[2017-12-27] MEDS ORDERED: AMIODARONE HCL 150 MG in DEXTROSE 5%-WATER 100 ML IV ONE ×2 (17:18→17:34)
[2017-12-27] MEDS ORDERED: DEXTROSE 5%-WATER 500 ML with AMIODARONE HCL 900 MG IV PRN ×2 (17:52)
[2017-12-27] MEDS ORDERED: KETAMINE HCL INJ 500 MG/10 ML VIAL ONE (18:10)
[2017-12-27] MEDS ORDERED: KETAMINE HCL INJ 500 MG/10 ML VIAL IV ONE (18:30)
--- NOTE | 2017-12-27 18:59 | EKG REPORT ---
SEVERITY:- ABNORMAL ECG - SINUS RHYTHM AND A PACED, V SENSED NONSPECIFIC INTRAVENTRICULAR CONDUCTION DELAY BORDERLINE R WAVE PROGRESSION, ANTERIOR LEADS MINIMAL ST DEPRESSION, INFERIOR LEADS : Confirmed by: Rosalio Lawrence MD 27-Dec-2017 18:59:27
--- NOTE | 2017-12-27 19:01 | EKG REPORT ---
SEVERITY:- ABNORMAL ECG - WIDE COMPLEX TACHYCARDIA. : Confirmed by: Rosalio Lawrence MD 27-Dec-2017 19:01:37
[2017-12-27] MEDS ORDERED: LIDOCAINE 2% INJ-PF (100 MG/5 ML) SYRINGE ONE (19:54)
[2017-12-27] MEDS ORDERED: LIDOCAINE HCL/D5W/PF 2,000 MG/250 ML RTUINJ IV PRN (19:56)
[2017-12-27] MEDS ORDERED: LIDOCAINE 2% INJ-PF (100 MG/5 ML) SYRINGE IV ONE (19:56)
[2017-12-27 20:29] VITALS: BP 121/52
--- NOTE | 2017-12-28 07:42 | EKG REPORT ---
SEVERITY:- ABNORMAL ECG - WIDE COMPLEX TACHYCARDIA CLINICAL CORRELATION AND CARDIOLOGY CONSULT NEEDED : Confirmed by: Rosalio Lawrence MD 28-Dec-2017 07:42:12
--- NOTE | 2017-12-28 07:43 | EKG REPORT ---
SEVERITY:- ABNORMAL ECG - DUAL-PACEMAKER W/ A-NONCAPT DUE TO AFIB/FLUT NONSPECIFIC INTRAVENTRICULAR CONDUCTION DELAY MINIMAL ST DEPRESSION, LATERAL LEADS : Confirmed by: Rosalio Lawrence MD 28-Dec-2017 07:42:47
== END 2017-12-27 22:50 | disposition short-term general hospital (02) ==
LOC: ER 10:04
DX: I47.2 Ventricular tachycardia (principal); R26.2 Difficulty in walking, not elsewhere classified; R25.1 Tremor, unspecified; M79.604 Pain in right leg; G89.29 Other chronic pain; I87.2 Venous insufficiency (chronic) (peripheral); R53.1 Weakness; N18.9 Chronic kidney disease, unspecified; I50.9 Heart failure, unspecified; Z95.810 Presence of automatic (implantable) cardiac defibrillator
CPT/HCPCS: 93005 ×2; 99285; 96365; 96366; 36415; 82962; 82140; 83735; 85025; 85610; 80053; 81001; 84484; 83880; 71046; 93010; J3490; J2001 ×2; J7060; J0282; A9270

== ENCOUNTER 2018-02-27 19:07 | Inpatient (IN) | payer MEDICARE ==
[2018-02-27 19:30] LABS: HEMATOCRIT 34.4 % (37.9-51.0); HEMOGLOBIN 11.1 g/dL (13.5-17.0); MEAN CORPUSCULAR HEMOGLOBIN 29.5 pg (27.0-33.4); MEAN CORPUSCULAR HGB CONC 32.3 g/dL (32.0-36.0); MEAN CORPUSCULAR VOLUME 91 fl (80-97); PLATELET COUNT 107 10^3/uL (150-450); RED BLOOD COUNT 3.77 10^6/uL (4.35-5.55); RED CELL DISTRIBUTION WIDTH 17.3 % (11.5-14.0)
[2018-02-27 19:34] LABS: INTERNATIONAL RATION (INR) 1.62
--- NOTE | 2018-02-27 19:51 | RADIOLOGY REPORT (SQ) ---
EXAM DESCRIPTION: CHEST SINGLE VIEW COMPLETED DATE/TIME: 02/27/2018 7:24 pm REASON FOR STUDY: difficulty breathing COMPARISON: 12/27/2017. EXAM PARAMETERS: NUMBER OF VIEWS: One view. TECHNIQUE: Single frontal radiographic view of the chest acquired. RADIATION DOSE: NA LIMITATIONS: None. FINDINGS: LUNGS AND PLEURA: Patchy parenchymal density in the left lung base. Possible left pleural effusion. Right lung relatively clear. MEDIASTINUM AND HILAR STRUCTURES: No masses. Contour normal. HEART AND VASCULAR STRUCTURES: Cardiac enlargement. Vascular congestion. BONES: No acute findings. HARDWARE: Sternotomy wires, coronary bypass markers, defibrillator. OTHER: No other significant finding. IMPRESSION: CARDIAC ENLARGEMENT. VASCULAR CONGESTION. ATELECTASIS IN THE LEFT LUNG BASE. POSSIBLE LEFT PLEURAL EFFUSION. TECHNICAL DOCUMENTATION: JOB ID: [id number] [employer]- All Rights Reserved Reading location - IP/workstation name: [email or web address]
[2018-02-27] MEDS ORDERED: CEFEPIME 1 GM/D5W RTU 1 GM/50 ML RTUPB IV ONE (20:01)
[2018-02-27] MEDS ORDERED: LINEZOLID 300 ML IV ONE ×2 (20:01→21:16)
[2018-02-27 20:04] LABS: ABSOLUTE LYMPHOCYTES# (MANUAL) 1.2 10^3/uL (0.5-4.7); ABSOLUTE MONOCYTES # (MANUAL) 1.3 10^3/uL (0.1-1.4); ABSOLUTE NEUTROPHILS# (MANUAL) 10.5 10^3/uL (1.7-8.2); BASOPHILS % (MANUAL) 0 % (0-2); EOSINOPHILS % (MANUAL) 0 % (0-6); LYMPHOCYTES % (MANUAL) 8 % (13-45); MONOCYTES % (MANUAL) 10 % (3-13); SEGMENTED NEUTROPHILS % (MAN) 81 % (42-78); TOTAL CELLS COUNTED 100
[2018-02-27 20:08] LABS: ANISOCYTOSIS 1+; HYPOCHROMASIA SLIGHT; POIKILOCYTOSIS SLIGHT; POLYCHROMASIA SLIGHT; STOMATOCYTES SLIGHT
[2018-02-27 20:09] LABS: PLATELET COMMENT DECREASED
[2018-02-27 20:18] LABS: VENOUS BLOOD BASE EXCESS 5.6 mmol/L; VENOUS BLOOD HCO3 31.8 mmol/L (20-32); VENOUS BLOOD PH 7.39 (7.30-7.42)
[2018-02-27 20:35] LABS: ALANINE AMINOTRANSFERASE 28 U/L (21-72); ALBUMIN 3.2 g/dL (3.5-5.0); ALKALINE PHOSPHATASE 98 U/L (38-126); ANION GAP 11 (5-19); ASPARTATE AMINO TRANSFERASE 21 U/L (17-59); BILIRUBIN,DIRECT 0.4 mg/dL (0.0-0.4); BILIRUBIN,TOTAL 0.7 mg/dL (0.2-1.3); BLOOD UREA NITROGEN 52 mg/dL (7-20); CALCIUM 8.4 mg/dL (8.4-10.2); CARBON DIOXIDE 31 mmol/L (22-30); CHLORIDE 97 mmol/L (98-107); GLUCOSE 190 mg/dL (75-110); POTASSIUM 5.5 mmol/L (3.6-5.0); SODIUM 138.9 mmol/L (137-145)
--- NOTE | 2018-02-27 21:29 | ER Document Report ---
ED Respiratory Problem - General Chief Complaint: Respiratory Distress Stated Complaint: RESPIRATORY DISTRESS Time Seen by Provider: 02/27/18 19:12 Notes: The patient is a 77-year-old male, past medical history CHF with AICD, CKD, chronic pain, presents by EMS after he was found to be in respiratory distress and not acting right at home. While wearing his CPAP at home, his oxygen saturation was 50%, according to his . When EMS arrived, the patient was placed on their CPAP with improvement of his oxygenation up to the 90's. His temperature was 102.7 axillary by EMS and he was given 975 mg rectal Tylenol and 2 mg IM Versed due to his agitation with the CPAP machine prior to EMS. Patient has had a productive cough, but unable to provide any additional history. He is much more alert on arrival to the ER. TRAVEL OUTSIDE OF THE [place] IN LAST 30 DAYS: No - Related Data Allergies/Adverse Reactions: Penicillins Allergy (Unknown, Verified 12/27/17 10:23) Wyzuyav-Zpc-Xyt Reductase Inhibitor Allergy (Verified 12/27/17 10:23) vancomycin [Vancomycin] Adverse Reaction (Verified 12/27/17 10:23) Past Medical History - General Information source: Patient - Social History Smoking Status: Unknown if Ever Smoked Family History: CAD, COPD Patient has suicidal ideation: No Patient has homicidal ideation: No - Past Medical History Cardiac Medical History: Reports: Hx Atrial Fibrillation, Hx Congestive Heart Failure, Hx Coronary Artery Disease, Hx Heart Attack - x6, Hx Hypercholesterolemia, Hx Hypertension, Hx Peripheral Vascular Disease, Hx Pulmonary Embolism Pulmonary Medical History: Reports: Hx Asthma, Hx Bronchitis, Hx COPD, Hx Sleep Apnea - without c-pap Denies: Hx Pneumonia, Hx Respiratory Failure, Hx Tuberculosis Neurological Medical History: Denies: Hx Cerebrovascular Accident, Hx Seizures Endocrine Medical History: Reports: Hx Diabetes Mellitus Type 2. Denies: Hx Graves' Disease, Hx Hyperthyroidism, Hx Hypothyroidism Renal/ Medical History: Reports: Hx Benign Prostatic Hyperplasia, Hx Kidney Stones. Denies: Hx End Stage Renal Disease, Hx Peritoneal Dialysis Malignancy Medical History: Denies Hx Leukemia, Denies Hx Lung Cancer GI Medical History: Reports: Hx Gastroesophageal Reflux Disease. Denies: Hx Hepatitis, Hx Hiatal Hernia, Hx Ulcer Musculoskeltal Medical History: Reports Hx Arthritis, Denies Hx Fibromyalgia, Denies Hx Multiple Sclerosis, Denies Hx Muscular Dystrophy Psychiatric Medical History: Denies: Hx Dementia, Hx Depression Traumatic Medical History: Denies: Hx Fractures Infectious Medical History: Denies: Hx Hepatitis, Hx HIV Past Surgical History: Reports: Hx Abdominal Surgery - AAA, Hx Cardiac Catheterization, Hx Cardiac Surgery - triple bypass, Hx Coronary Artery Bypass Graft - quadruple, Hx Coronary Stent, Hx Internal Defibrillator, Hx Open Heart Surgery - LATE , Hx Orthopedic Surgery - Left BKA, Hx Pacemaker. Denies: Hx Appendectomy, Hx Bowel Surgery, Hx Cholecystectomy, Hx Gastric Bypass Surgery , Hx Herniorrhaphy, Hx Tonsillectomy - Immunizations Hx Diphtheria, Pertussis, Tetanus Vaccination: Yes Hx Pneumococcal Vaccination: 07/04/08 Review of Systems - Review of Systems -: Yes ROS unobtainable due to patient's medical condition Constitutional: Fever Respiratory: Cough, Short of breath, Sputum Physical Exam - Vital signs Vitals: Resp Pulse Ox 16 96 02/27/18 19:09 02/27/18 19:09 - Notes Notes: PHYSICAL EXAMINATION: GENERAL: Awake, alert, not following instructions. Moderate respiratory distress. HEAD: Atraumatic, normocephalic. EYES: Pupils equal round and reactive to light, extraocular movements intact, sclera anicteric, conjunctiva are normal. ENT: nares patent, oropharynx clear without exudates. Moist mucous membranes. NECK: Normal range of motion, supple without lymphadenopathy LUNGS: Left lower lobe crackles. Diffuse rhonchi. Tachypneic. Moderate respiratory distress. HEART: Regular rate and rhythm. ABDOMEN: Soft, nontender, normoactive bowel sounds. No guarding, no rebound. No masses appreciated. EXTREMITIES: Left AKA. Chronic skin changes of right villalpando. No edema. NEUROLOGICAL: Cranial nerves grossly intact. Normal sensory and motor exams. PSYCH: Normal mood, normal affect. SKIN: Warm, Dry, normal turgor, no rashes or lesions noted. Course - Re-evaluation Re-evalutation: Patient seen immediately on arrival and transition from EMS CPAP to BiPAP. Patient much more awake and interactive after a few minutes on BiPAP. His chest x-ray does show possible left lower lobe effusion. With his fever, leukocytosis, hypoxia and crackles on exam, will treat him pneumonia. He has grown out MRSA in his sputum before and has a vancomycin and penicillin allergy , so will begin Linazolid and cefepime. Pt does have CKD his creatinine is 3.26 today. Patient's map is remaining above 65 and his lactate is 2.1, so he is not in severe sepsis and does not require 30 cc/kg. His PMD is in [place]. 02/27/18 22:[address] Pierre and he has accepted patient to [facility] as Inpatient. - Vital Signs Vital signs: Temp Pulse Resp BP Pulse Ox 24 H 101/52 L 78 L 02/27/18 21:02 02/27/18 21:02 02/27/18 21:02 - Laboratory Result Diagrams: 02/27/18 17:40 02/27/18 20:05 Laboratory results interpreted by me: 02/27/18 02/27/18 02/27/18 17:40 17:40 20:05 WBC 13.0 H RBC 3.77 L Hgb 11.1 L Hct 34.4 L RDW 17.3 H Plt Count 107 L Seg Neuts % (Manual) 81 H Lymphocytes % (Manual) 8 L Abs Neuts (Manual) 10.5 H PT 20.0 H Potassium Chloride Carbon Dioxide BUN Creatinine Est GFR ( Amer) Est GFR (Non-Af Amer) Glucose Lactic Acid 2.2 H NT-Pro-B Natriuret Pep Total Protein Albumin 02/27/18 02/27/18 20:05 20:05 WBC RBC Hgb Hct RDW Plt Count Seg Neuts % (Manual) Lymphocytes % (Manual) Abs Neuts (Manual) PT Potassium 5.5 H Chloride 97 L Carbon Dioxide 31 H BUN 52 H Creatinine 3.26 H Est GFR ( Amer) 22 L Est GFR (Non-Af Amer) 18 L Glucose 190 H Lactic Acid NT-Pro-B Natriuret Pep 4860 H Total Protein 6.0 L Albumin 3.2 L - Diagnostic Test Radiology reviewed: Image reviewed, Reports reviewed Radiology results interpreted by me: CXR: CARDIAC ENLARGEMENT. VASCULAR CONGESTION. ATELECTASIS IN THE LEFT LUNG BASE. POSSIBLE LEFT PLEURAL EFFUSION. Critical Care Note - Critical Care Note Total time excluding time spent on procedures (mins): 46 Discharge - Discharge Clinical Impression: Acute respiratory failure with hypoxia Pneumonia Qualifiers: Pneumonia type: due to unspecified organism Laterality: left Lung location: lower lobe of lung Qualified Code(s): J18.1 - Lobar pneumonia, unspecified organism Sepsis Qualifiers: Sepsis type: sepsis due to unspecified organism Qualified Code(s): A41.9 - Sepsis, unspecified organism Condition: Serious Disposition: ADMITTED INPATIENT [facility] Admitted: [facility]
[2018-02-27] MEDS ORDERED: BUMETANIDE INJ/PF 1 MG/4 ML SDV IV ONE (21:30)
[2018-02-27] MEDS ORDERED: LEVETIRACETAM 500 MG TABLET PO ONE (21:48)
[2018-02-27] MEDS ORDERED: NORMAL SALINE 500 ML IV ONE (21:51)
[2018-02-27] MEDS ORDERED: LACTULOSE SYRUP 20 GM/30 ML UDCUP PO ONE (22:36)
--- NOTE | 2018-02-27 23:26 | EKG REPORT ---
SEVERITY:- ABNORMAL ECG - ATRIAL-VENTRICULAR DUAL-PACED RHYTHM : Confirmed by: Rosalio Lawrence MD 27-Feb-2018 23:25:28
[2018-02-27] MEDS ORDERED: MAG HYDROX/AL HYDROX/SIMETH SUSP 30 ML UDCUP PO PRN (23:59)
[2018-02-27] MEDS ORDERED: ACETAMINOPHEN 325 MG TABLET PO PRN (23:59)
[2018-02-27] MEDS ORDERED: IPRATROPIUM/ALBUTEROL 0.5-2.5 MG/3 ML AMPUL NEB PRN (23:59)
[2018-02-27] MEDS ORDERED: MAGNESIUM HYDROXIDE SUSP 30 ML UDCUP PO PRN (23:59)
[2018-02-28] MEDS ORDERED: DEXTROSE 40% GEL 15 GM TUBE PO PRN ×2 (00:02)
[2018-02-28] MEDS ORDERED: DEXTROSE 50%-WATER 25 GM/50 ML DISP.SYRIN IV PRN ×2 (00:02)
[2018-02-28] MEDS ORDERED: GLUCAGON,HUMAN RECOMB 1 MG INJ IM PRN (00:02)
[2018-02-28 01:09] LABS: APPEARANCE,URINE TURBID; BILIRUBIN,URINE NEGATIVE (NEGATIVE); COLOR,URINE AMBER; GLUCOSE, URINE NEGATIVE (NEGATIVE); KETONES,URINE NEGATIVE (NEGATIVE); LEUKOCYTE ESTERASE,URINE MODERATE (NEGATIVE); NITRITE,URINE NEGATIVE (NEGATIVE); PROTEIN,URINE >=500 mg/dL (NEGATIVE); URINE SPECIFIC GRAVITY 1.013; UROBILINOGEN,URINE NEGATIVE mg/dL (<2.0)
[2018-02-28] MEDS: IPRATROPIUM/ALBUTEROL 0.5-2.5 MG/3 ML AMPUL NEB SCH ×3 (01:13→15:43)
[2018-02-28] MEDS ORDERED: LACTULOSE SYRUP 20 GM/30 ML UDCUP PR ONE ×3 (01:15→04:45)
--- NOTE | 2018-02-28 06:16 | PDOC H&P ---
History of Present Illness Admission Date/PCP: 02/27/18 22:44 Patient complains of: Shortness of breath History of Present Illness: TRUONG PINK is a 77 year old male with history of chronic multisystem organ failure, CHF with AICD, stage IV chronic kidney disease, chronic pain, oxygen dependent COPD, obstructive sleep apnea, peripheral vascular disease status post left BKA and diabetes. Family noting several days of profound fatigue with involuntary twitching suggestive of myoclonus, EMS finds oxygen saturations of 50%. On BiPAP he is brought to the emergency room for evaluation , workup reveals fever of 102.7, pneumonia with chronic pleural effusion and urinary tract infection. He is started on empiric antibiotics and referred to the hospitalist for admission. Patient is obtunded unable to provide history. Past Medical History Cardiac Medical History: Reports: Atrial Fibrillation, Congestive Heart Failure , Coronary Artery Disease, Myocardial Infarction - x6, Hyperlipidema, Hypertension, Peripheral Vascular Disease, Pulmonary Embolism Pulmonary Medical History: Reports: Asthma, Bronchitis, Chronic Obstructive Pulmonary Disease (COPD), Sleep Apnea - without c-pap Denies: Pneumonia, Respiratory Failure, Tuberculosis Neurological Medical History: Denies: Seizures Endocrine Medical History: Reports: Diabetes Mellitus Type 2 Denies: Hyperthyroidism, Hypothyroidism Renal/ Medical History: Denies: End Stage Renal Disease Malignancy Medical History: Denies: Leukemia, Lung Cancer GI Medical History: Reports: Gastroesophageal Reflux Disease Denies: Hepatitis, Hiatal Hernia Musculoskeltal Medical History: Reports: Arthritis Denies: Fibromyalgia Psychiatric Medical History: Denies: Dementia, Depression Hematology: Denies: Anemia, Hemophilia, Sickle Cell Disease Infectious Medical History: Denies: HIV Past Surgical History Past Surgical History: Reports: Cardiac Catheterization, Coronary Artery Bypass Graft - quadruple, Coronary Stent, Internal Defibrillator, Orthopedic Surgery - Left BKA, Pacemaker Denies: Appendectomy, Cholecystectomy, Gastric Bypass Surgery, Herniorrhaphy , Tonsillectomy Social History Information Source: Patient, Relative, POA - Power of Rub[employer] G[employer] Trimmer, [facility] Records Lives with: Family Smoking Status: Unknown if Ever Smoked Frequency of Alcohol Use: None Hx Recreational Drug Use: No Drugs: None Hx Prescription Drug Abuse: No - Advance Directive Resuscitation Status: Full Code Family History Family History: CAD, COPD Parental Family History Reviewed: Yes Children Family History Reviewed: Yes Sibling(s) Family History Reviewed.: Yes Medication/Allergy Home Medications: Albuterol Sulfate [Ventolin HFA MDI 18 GM] 1 puff IH Q6HP PRN 11/13/17 Allopurinol [Zyloprim 300 mg Tablet] 150 mg PO DAILY 11/13/17 Aspirin [Ecotrin 81 mg EC Tablet] 81 mg PO DAILY 11/13/17 Atorvastatin Calcium [Lipitor 40 mg Tablet] 80 mg PO QHS 11/13/17 Budesonide/Formoterol Fumarate [Symbicort 160-4.5 Mcg Inhaler] 2 puff IH Q12 07/21 Cholecalciferol (Vitamin D3) [Vitamin D3 400 Unit Tablet] 400 unit PO DAILY 07/21 Finasteride [Proscar 5 mg Tablet] 5 mg PO QHS 11/13/17 Hydrocodone/Acetaminophen [Hydrocodone-Acetamin 10-325 mg] 1 tab PO Q6HP PRN 07/21 Isosorbide Mononitrate [Imdur 30 mg Tablet.er] 90 mg PO DAILY 11/13/17 Magnesium Oxide [Mag-Ox 400 mg Tablet] 400 mg PO BID 11/13/17 Montelukast Sodium [Singulair 10 mg Tablet] 10 mg PO QHS 11/13/17 Multivitamin [Tab-A-Maris (Multiple Vitamin) Tablet] 1 tab PO DAILY 11/13/17 Polyethylene Glycol 3350 [Miralax Powder 17 gm/Packet] 17 gm PO QPMP PRN Pregabalin [Lyrica] 150 mg PO QAM 11/13/17 Ranolazine [Ranexa 500 mg Tab.sr] 1,000 mg PO Q12 11/13/17 Sennosides/Docusate 8.6-50 mg [Senna Plus Tablet] 1 tab PO BID 11/13/17 Tamsulosin HCl [Flomax 0.4 mg Cap.sr] 0.8 mg PO QHS 11/13/17 Tiotropium Carbon [Spiriva Handihaler 5 Cap/Kit (18 Mcg/Cap)] 1 puff IH DAILY 11/13/17 Zolpidem Tartrate [Ambien 5 mg Tablet] 5 mg PO HSP PRN 11/13/17 Bumetanide [Bumex 2 mg Tablet] 2 mg PO BID #60 11/30/17 Amiodarone HCl [Cordarone 200 mg Tablet] 200 mg PO DAILY 02/27/18 Apixaban [Eliquis 5 mg Tablet] 5 mg PO BID 02/27/18 Insulin Glargine,Hum.rec.anlog [Lantus Solostar] 16 unit SQ QHS 02/27/18 Levetiracetam [Keppra] 250 mg PO QHS 02/27/18 Metoprolol Succinate [Toprol Xl 25 mg Tab.sr] 50 mg PO QHS 02/27/18 Pantoprazole Sodium [Protonix] 40 mg PO DAILY 02/27/18 Potassium Chloride [Klor-Con 10 Meq Tablet.sa] 20 meq PO Q12 02/27/18 Docusate Sodium [Doc-Q-Lace] 1 tab PO BID 02/28/18 Nitroglycerin 0.4 mg SL PRN PRN 02/28/18 Allergies/Adverse Reactions: Penicillins Allergy (Unknown, Verified 12/27/17 10:23) Qraaawr-Acp-Axm Reductase Inhibitor Allergy (Verified 12/27/17 10:23) vancomycin [Vancomycin] Adverse Reaction (Verified 12/27/17 10:23) Review of Systems ROS unobtainable: Due to mental status Physical Exam Vital Signs: Temp Pulse Resp BP Pulse Ox 100.0 F 80 22 H 138/56 H 100 02/28/18 01:44 02/28/18 01:44 02/28/18 04:00 02/28/18 03:33 02/28/18 04:00 Intake & Output 02/26/18 02/27/18 02/28/18 11:59 11:59 11:59 Output Total 350 Balance -350 Weight 103.1 kg General appearance: PRESENT: obese, other - Obtunded Head exam: PRESENT: atraumatic, normocephalic Eye exam: PRESENT: conjunctiva pink, EOMI, PERRLA. ABSENT: scleral icterus Ear exam: PRESENT: normal external ear exam Mouth exam: PRESENT: dry mucosa, moist, tongue midline Neck exam: ABSENT: carotid bruit, JVD, lymphadenopathy, thyromegaly Respiratory exam: PRESENT: crackles, decreased breath sounds, prolonged expiratory phas Cardiovascular exam: PRESENT: RRR. ABSENT: diastolic murmur, rubs, systolic murmur Pulses: PRESENT: normal dorsalis pedis pul Vascular exam: PRESENT: normal capillary refill GI/Abdominal exam: PRESENT: distended, hypoactive bowel sounds, tenderness. ABSENT: firm, guarding Rectal exam: PRESENT: deferred Extremities exam: PRESENT: full ROM, +1 edema - Left leg BKA. ABSENT: calf tenderness, clubbing, pedal edema Results Laboratory Results: 02/28/18 02/28/18 02/28/18 00:22 00:30 00:30 Lactic Acid Cancelled Magnesium Cancelled Urine Color DIEGO Urine Appearance TURBID Urine pH 8.0 Ur Specific [place] 1.013 Urine Protein >=500 H Urine Glucose (UA) NEGATIVE Urine Ketones NEGATIVE Urine Blood SMALL H Urine Nitrite NEGATIVE Ur Leukocyte Esterase MODERATE H Urine WBC (Auto) >182 Urine RBC (Auto) 02/28/18 02/28/18 01:43 01:43 Lactic Acid 1.4 Magnesium 2.5 H Urine Color Urine Appearance Urine pH Ur Specific [place] Urine Protein Urine Glucose (UA) Urine Ketones Urine Blood Urine Nitrite Ur Leukocyte Esterase Urine WBC (Auto) Urine RBC (Auto) Impressions: Chest X-Ray 02/27/18 19:09 IMPRESSION: CARDIAC ENLARGEMENT. VASCULAR CONGESTION. ATELECTASIS IN THE LEFT LUNG BASE. POSSIBLE LEFT PLEURAL EFFUSION. Assessment & Plan - Diagnosis (1) Acute respiratory failure with hypoxia Is this a current diagnosis for this admission?: Yes Plan: ICU admission given high risk of worsening despite BiPAP support, follow-up ABG , albuterol Atrovent. (2) Pneumonia Qualifiers: Pneumonia type: due to unspecified organism Laterality: left Lung location: lower lobe of lung Qualified Code(s): J18.1 - Lobar pneumonia, unspecified organism Is this a current diagnosis for this admission?: Yes Plan: Empiric antibiotics initiated follow-up CBC blood culture (3) Sepsis Qualifiers: Sepsis type: sepsis due to unspecified organism Qualified Code(s): A41.9 - Sepsis, unspecified organism Is this a current diagnosis for this admission?: Yes Plan: Pneumonia versus UTI, empiric antibiotics initiated follow-up blood and urine culture (4) Acute kidney injury superimposed on CKD Is this a current diagnosis for this admission?: Yes Plan: Avoid nephrotoxic meds and doses, consider nephrology consult follow-up chemistry (5) Constipation Qualifiers: Constipation type: unspecified constipation type Qualified Code(s): K59.00 - Constipation, unspecified Is this a current diagnosis for this admission?: Yes Plan: Lactulose enema. Bowel regiment (6) Diabetes Qualifiers: Diabetes mellitus type: type 2 Diabetes mellitus shelter insulin use: with lpn use Diabetes mellitus complication status: with circulatory complication Diabetes mellitus complication detail: with peripheral angiopathy without gangrene Qualified Code(s): E11.51 - Type 2 diabetes mellitus with diabetic peripheral angiopathy without gangrene Is this a current diagnosis for this admission?: Yes Plan: 50% of long-acting insulin while n.p.o. plus Humalog sliding scale (7) Hyperkalemia Is this a current diagnosis for this admission?: Yes Plan: Secondary to acute on chronic kidney disease and chronic constipation. Lactulose initiated reevaluate chemistry - Time Time Spent: 50 to 70 Minutes - Inpatient Certification Medical Necessity: Need Close Monitoring Due to Risk of Patient Decompensation
[2018-02-28 06:37] LABS: ARTERIAL BLOOD BASE EXCESS 2.6 mmol/L; ARTERIAL BLOOD H2CO3 1.16 mmol/L (1.05-1.35); ARTERIAL BLOOD HCO3 26.6 mmol/L (20-26); ARTERIAL BLOOD PCO2 38.6 mmHg (35-45); ARTERIAL BLOOD PH 7.46 (7.35-7.45); ARTERIAL BLOOD PO2 144.9 mmHg (80-100); ARTERIAL BLOOD TOTAL CO2 27.8 mmol/L (23-27)
[2018-02-28 06:39] LABS: ARTERIAL BLOOD FIO2 60%
[2018-02-28] MEDS ORDERED: PROMETHAZINE HCL INJ 25 MG/1 ML VIAL ONE (08:56)
[2018-02-28] MEDS ORDERED: HYDRALAZINE HCL INJ/PF 20 MG/1 ML SDV ONE (09:55)
[2018-02-28] MEDS ORDERED: APIXABAN 5 MG TABLET PO SCH (10:00)
[2018-02-28] MEDS ORDERED: LINEZOLID 300 ML IV SCH (10:00)
[2018-02-28] MEDS ORDERED: AMIODARONE HCL 200 MG TABLET PO SCH (10:00)
[2018-02-28] MEDS ORDERED: LACTULOSE SYRUP 20 GM/30 ML UDCUP PR SCH (10:00)
[2018-02-28] MEDS: PROMETHAZINE HCL INJ 25 MG/1 ML VIAL IV PRN (10:04)
[2018-02-28] MEDS: CEFEPIME 1 GM/D5W RTU 1 GM/50 ML RTUPB IV SCH ×2 (10:09→21:42)
[2018-02-28 10:55] LABS: ARTERIAL BLOOD BASE EXCESS 4.7 mmol/L; ARTERIAL BLOOD FIO2 12L; ARTERIAL BLOOD HCO3 29.2 mmol/L (20-26); ARTERIAL BLOOD PCO2 43.2 mmHg (35-45); ARTERIAL BLOOD PH 7.45 (7.35-7.45); ARTERIAL BLOOD TOTAL CO2 30.5 mmol/L (23-27)
[2018-02-28] MEDS ORDERED: ACETAMINOPHEN 650 MG SUPP.RECT PR ONE (11:06)
[2018-02-28] MEDS ORDERED: METHYLPREDNISOLONE INJ 125 MG/2 ML SDV IV ONE (11:28)
[2018-02-28] MEDS: BUMETANIDE INJ/PF 1 MG/4 ML SDV IV SCH (12:07)
[2018-02-28] MEDS: FAMOTIDINE INJ/PF 20 MG/2 ML SDV IV SCH (12:08)
[2018-02-28] MEDS: DOCUSATE SODIUM 100 MG CAPSULE PO SCH ×2 (12:10→18:16)
[2018-02-28] MEDS: INSULIN LISPRO 100 UNIT/ML 3 ML VIAL SUBCUT PRN ×2 (12:19→18:22)
[2018-02-28] MEDS ORDERED: ACETAMINOPHEN 650 MG SUPP.RECT PR PRN (13:21)
[2018-02-28] MEDS: METHYLPREDNISOLONE INJ 40 MG/1 ML SDV IV SCH ×2 (14:50→21:42)
[2018-02-28] MEDS ORDERED: DEXTROSE 5%-WATER 500 ML with AMIODARONE HCL 900 MG IV PRN ×2 (16:29)
--- NOTE | 2018-02-28 17:16 | RADIOLOGY REPORT (SQ) ---
EXAM DESCRIPTION: KUB/ABDOMEN (SINGLE VIEW) COMPLETED DATE/TIME: 02/28/2018 5:06 pm REASON FOR STUDY: Eval for obstipation COMPARISON: 03/08/2016. NUMBER OF VIEWS: One view. TECHNIQUE: Supine radiographic image of the abdomen acquired. LIMITATIONS: None. FINDINGS: BOWEL GAS PATTERN: Distended stomach. Prominent stool in the colon. CALCIFICATIONS: No suspicious calcifications. SOFT TISSUES: No gross mass or suggestion of organomegaly. HARDWARE: None in the abdomen. BONES: No acute fracture. No worrisome bone lesions. OTHER: No other significant finding. IMPRESSION: DISTENDED STOMACH. PROMINENT STOOL IN THE COLON, POSSIBLE CONSTIPATION. TECHNICAL DOCUMENTATION: JOB ID: [id number] [employer]- All Rights Reserved Reading location - IP/workstation name: [email or web address]
[2018-02-28 17:21] LABS: APPEARANCE,URINE TURBID; BILIRUBIN,URINE NEGATIVE (NEGATIVE); COLOR,URINE AMBER; GLUCOSE, URINE 50 mg/dL (NEGATIVE); KETONES,URINE NEGATIVE (NEGATIVE); LEUKOCYTE ESTERASE,URINE LARGE (NEGATIVE); NITRITE,URINE NEGATIVE (NEGATIVE); PROTEIN,URINE 100 mg/dL (NEGATIVE); URINE SPECIFIC GRAVITY 1.011; UROBILINOGEN,URINE NEGATIVE mg/dL (<2.0)
[2018-02-28] MEDS ORDERED: CIPROFLOXACIN 400 MG/D5W RTU 400 MG/200 ML RTUPB IV ONE (17:30)
[2018-02-28] MEDS ORDERED: AMIODARONE HCL INJ 150 MG/3 ML VIAL IV PRN (17:52)
[2018-02-28] MEDS ORDERED: LEVETIRACETAM INJ/PF 500 MG/5 ML SDV IV ONE (21:34)
[2018-02-28] MEDS: MORPHINE SULFATE 10 MG/ML INJ IV PRN (21:44)
[2018-02-28] MEDS: LEVETIRACETAM IV SCH (21:46)
[2018-02-28] MEDS: NORMAL SALINE IV SCH (21:46)
[2018-02-28] MEDS ORDERED: ENOXAPARIN SODIUM INJ 100 MG/1 ML DISP.SYRIN SUBCUT SCH (22:00)
[2018-02-28] MEDS ORDERED: LEVETIRACETAM 500 MG TABLET PO SCH (22:00)
[2018-02-28] MEDS: METOPROLOL SUCCINATE 25 MG TAB.SR.24H PO SCH (22:04)
[2018-02-28] MEDS: TAMSULOSIN HCL 0.4 MG CAP.SR.24H PO SCH (22:04)
[2018-03-01] MEDS: IPRATROPIUM/ALBUTEROL 0.5-2.5 MG/3 ML AMPUL NEB SCH ×4 (00:14→23:32)
[2018-03-01] MEDS: INSULIN LISPRO 100 UNIT/ML 3 ML VIAL SUBCUT PRN ×5 (00:27→23:51)
[2018-03-01] MEDS: BUMETANIDE INJ/PF 1 MG/4 ML SDV IV SCH ×3 (00:27→23:35)
[2018-03-01 04:41] LABS: HEMATOCRIT 32.3 % (37.9-51.0); HEMOGLOBIN 10.5 g/dL (13.5-17.0); MEAN CORPUSCULAR HEMOGLOBIN 29.7 pg (27.0-33.4); MEAN CORPUSCULAR HGB CONC 32.5 g/dL (32.0-36.0); MEAN CORPUSCULAR VOLUME 91 fl (80-97); RED BLOOD COUNT 3.54 10^6/uL (4.35-5.55); RED CELL DISTRIBUTION WIDTH 16.8 % (11.5-14.0); WHITE BLOOD COUNT 10.1 10^3/uL (4.0-10.5)
[2018-03-01 04:55] LABS: CREATINE KINASE MB 0.92 ng/mL (<4.55)
[2018-03-01 04:59] LABS: TROPONIN I 0.025 ng/mL
[2018-03-01 05:08] LABS: ANION GAP 14 (5-19); BLOOD UREA NITROGEN 62 mg/dL (7-20); CALCIUM 8.7 mg/dL (8.4-10.2); CARBON DIOXIDE 28 mmol/L (22-30); CHLORIDE 101 mmol/L (98-107); CREATINE KINASE 24 U/L (55-170); GLUCOSE 319 mg/dL (75-110); POTASSIUM 3.9 mmol/L (3.6-5.0); SODIUM 142.9 mmol/L (137-145)
[2018-03-01 05:15] LABS: ABSOLUTE LYMPHOCYTES# (MANUAL) 0.3 10^3/uL (0.5-4.7); ABSOLUTE MONOCYTES # (MANUAL) 0.1 10^3/uL (0.1-1.4); ABSOLUTE NEUTROPHILS# (MANUAL) 9.7 10^3/uL (1.7-8.2); BAND NEUTROPHILS % (MANUAL) 1 % (3-5); BASOPHILS % (MANUAL) 0 % (0-2); EOSINOPHILS % (MANUAL) 0 % (0-6); LYMPHOCYTES % (MANUAL) 3 % (13-45); MONOCYTES % (MANUAL) 1 % (3-13); SEGMENTED NEUTROPHILS % (MAN) 95 % (42-78); TOTAL CELLS COUNTED 100; TOXIC GRANULATION SLIGHT
[2018-03-01 05:16] LABS: PLATELET CLUMPS PRESENT; PLATELET COMMENT DECREASED; TOXIC VACUOLATION PRESENT
[2018-03-01 05:17] LABS: ANISOCYTOSIS 1+; POIKILOCYTOSIS SLIGHT; TEAR DROP CELLS SLIGHT
[2018-03-01 05:18] LABS: PLATELET COUNT 87 10^3/uL (150-450)
[2018-03-01] MEDS: METHYLPREDNISOLONE INJ 40 MG/1 ML SDV IV SCH ×3 (06:14→22:42)
[2018-03-01] MEDS: PREGABALIN 75 MG CAPSULE PO SCH (08:15)
[2018-03-01] MEDS: HYDROCODONE/ACETAMINOPHEN 7.5-325 MG TABLET PO PRN ×4 (08:15→23:53)
[2018-03-01] MEDS ORDERED: ENOXAPARIN SODIUM INJ 100 MG/1 ML DISP.SYRIN SUBCUT SCH (10:00)
[2018-03-01] MEDS ORDERED: CIPROFLOXACIN 400 MG/D5W RTU 400 MG/200 ML RTUPB IV SCH ×3 (10:00→18:00)
[2018-03-01] MEDS: MORPHINE SULFATE 10 MG/ML INJ IV PRN ×3 (10:29→22:44)
--- NOTE | 2018-03-01 11:58 | PDOC PROGRESS REPORT ---
Subjective Progress Note for:: 03/01/18 Subjective:: Feeling a little better today. Able to tolerate a little liquid and a few pills. Reason For Visit: PNA,ACUTE ON CHRONIC RESP FAILURE,HYPERKALEMIA Physical Exam Vital Signs: Temp Pulse Resp BP Pulse Ox 97.7 F 83 22 H 141/77 H 100 03/01/18 10:00 03/01/18 10:00 03/01/18 10:00 03/01/18 10:00 03/01/18 10:00 Intake & Output 02/28/18 03/01/18 03/02/18 05:59 05:59 05:59 Intake Total 705 522 Output Total 350 2040 225 Balance -350 -1335 297 Weight 227 lb 4.745 oz 218 lb 0.595 oz General appearance: PRESENT: no acute distress, obese Respiratory exam: PRESENT: clear to auscultation dipti, rales - Dependent right greater than left Cardiovascular exam: PRESENT: RRR GI/Abdominal exam: PRESENT: distended, soft. ABSENT: tenderness Extremities exam: PRESENT: other - Left BKA Neurological exam: PRESENT: awake, CN II-XII grossly intact. ABSENT: motor sensory deficit Psychiatric exam: PRESENT: appropriate affect Skin exam: PRESENT: warm Results Laboratory Results: 03/01/18 04:13 03/01/18 04:13 02/28/18 03/01/18 03/01/18 17:05 04:13 04:13 WBC 10.1 RBC 3.54 L Hgb 10.5 L Hct 32.3 L MCV 91 MCH 29.7 MCHC 32.5 RDW 16.8 H Plt Count 87 L Seg Neutrophils % Not Reportable Lymphocytes % Not Reportable Monocytes % Not Reportable Eosinophils % Not Reportable Basophils % Not Reportable Absolute Neutrophils Not Reportable Absolute Lymphocytes Not Reportable Absolute Monocytes Not Reportable Absolute Eosinophils Not Reportable Absolute Basophils Not Reportable Sodium 142.9 Potassium 3.9 Chloride 101 Carbon Dioxide 28 Anion Gap 14 BUN 62 H Creatinine 3.28 H Est GFR ( Amer) 22 L Est GFR (Non-Af Amer) 18 L Glucose 319 H Calcium 8.7 Magnesium 2.5 H Urine Color DIEGO Urine Appearance TURBID Urine pH 5.0 Ur Specific [place] 1.011 Urine Protein 100 H Urine Glucose (UA) 50 H Urine Ketones NEGATIVE Urine Blood LARGE H Urine Nitrite NEGATIVE Ur Leukocyte Esterase LARGE H Urine WBC (Auto) >182 Urine RBC (Auto) 26 03/01/18 03/01/18 04:13 04:13 Creatine Kinase 24 L CK-MB (CK-2) 0.92 Troponin I 0.025 Impressions: Chest X-Ray 02/27/18 19:09 IMPRESSION: CARDIAC ENLARGEMENT. VASCULAR CONGESTION. ATELECTASIS IN THE LEFT LUNG BASE. POSSIBLE LEFT PLEURAL EFFUSION. KUB X-Ray 02/28/18 00:00 IMPRESSION: DISTENDED STOMACH. PROMINENT STOOL IN THE COLON, POSSIBLE CONSTIPATION. Assessment & Plan - Diagnosis (1) Sepsis Qualifiers: Sepsis type: sepsis due to unspecified organism Qualified Code(s): A41.9 - Sepsis, unspecified organism Is this a current diagnosis for this admission?: Yes Plan: Due to gram-negative rods. Presumably from his urinary tract infection. Cultures are pending. Continue cefepime and Cipro. (2) Acute kidney injury superimposed on CKD Is this a current diagnosis for this admission?: Yes Plan: Stage IV at baseline. Presumably cardiorenal. His diuretics have been changed over to IV. Continue to monitor closely (3) Acute on chronic diastolic heart failure Is this a current diagnosis for this admission?: Yes Plan: Diuresing slowly on IV Bumex at his home dose. Continue. (4) Acute on chronic respiratory failure with hypoxia and hypercapnia Is this a current diagnosis for this admission?: Yes (5) Anemia in chronic kidney disease Qualifiers: Chronic kidney disease stage: stage 4 (severe) Qualified Code(s): N18.4 - Chronic kidney disease, stage 4 (severe); D63.1 - Anemia in chronic kidney disease; D63.1 - Anemia in chronic kidney disease Is this a current diagnosis for this admission?: Yes Plan: Roughly stable (6) COPD with acute exacerbation Is this a current diagnosis for this admission?: Yes (7) Constipation Qualifiers: Constipation type: chronic idiopathic constipation Qualified Code(s): K59.04 - Chronic idiopathic constipation Is this a current diagnosis for this admission?: Yes Plan: Mag citrate, Amitizia, enemas until we get a good result (8) Diabetes type 2, uncontrolled Qualifiers: Diabetes mellitus intermodal customer service insulin use: with care home use Diabetes mellitus complication status: with hyperglycemia Qualified Code(s): E11.65 - Type 2 diabetes mellitus with hyperglycemia; Z79.4 - intermodal customer service (current) use of insulin; Z79.4 - intermodal customer service (current) use of insulin; Z79.4 - intermodal customer service (current ) use of insulin; Z79.4 - long-term (current) use of insulin Is this a current diagnosis for this admission?: Yes Plan: Increase his sliding scale (9) Hyperlipidemia Qualifiers: Hyperlipidemia type: unspecified Qualified Code(s): E78.5 - Hyperlipidemia , unspecified Is this a current diagnosis for this admission?: Yes Plan: Currently holding his statin, resume when he is taking a full diet. (10) Hypertension Qualifiers: Hypertension type: essential hypertension Qualified Code(s): I10 - Essential (primary) hypertension Is this a current diagnosis for this admission?: Yes Plan: Controlled on current medications. Continue (11) TORRES (nonalcoholic steatohepatitis) Is this a current diagnosis for this admission?: Yes (12) Peripheral vascular disease Is this a current diagnosis for this admission?: Yes (13) Thrombocytopenia Is this a current diagnosis for this admission?: Yes Plan: Continue to monitor (14) History of left below knee amputation Is this a current diagnosis for this admission?: Yes Plan: Limits his mobility
[2018-03-01] MEDS ORDERED: LUBIPROSTONE 24 MCG CAPSULE PO ONE (12:30)
[2018-03-01] MEDS: DOCUSATE SODIUM 100 MG CAPSULE PO SCH ×2 (12:51→18:27)
[2018-03-01] MEDS: FAMOTIDINE INJ/PF 20 MG/2 ML SDV IV SCH (12:51)
[2018-03-01] MEDS: CEFEPIME 1 GM/D5W RTU 1 GM/50 ML RTUPB IV SCH ×2 (12:52→22:43)
[2018-03-01] MEDS: ASPIRIN 81 MG TABLET, ENT COATED PO SCH (12:52)
[2018-03-01] MEDS ORDERED: MAGNESIUM CITRATE 296 ML BOTTLE PO ONE (13:00)
[2018-03-01] MEDS: METOPROLOL SUCCINATE 25 MG TAB.SR.24H PO SCH (22:42)
[2018-03-01] MEDS: LEVETIRACETAM IV SCH (22:43)
[2018-03-01] MEDS: NORMAL SALINE IV SCH (22:43)
[2018-03-01] MEDS: TAMSULOSIN HCL 0.4 MG CAP.SR.24H PO SCH (22:43)
[2018-03-01] MEDS: LUBIPROSTONE 24 MCG CAPSULE PO SCH (22:44)
[2018-03-01] MEDS: ENOXAPARIN SODIUM INJ 100 MG/1 ML DISP.SYRIN SUBCUT SCH (22:45)
[2018-03-02 04:38] LABS: HEMOGLOBIN 10.2 g/dL (13.5-17.0); MEAN CORPUSCULAR HEMOGLOBIN 29.6 pg (27.0-33.4); MEAN CORPUSCULAR HGB CONC 32.7 g/dL (32.0-36.0); MEAN CORPUSCULAR VOLUME 90 fl (80-97); RED BLOOD COUNT 3.43 10^6/uL (4.35-5.55)
[2018-03-02 04:45] LABS: PLATELET COUNT 92 10^3/uL (150-450)
[2018-03-02 04:56] LABS: ALBUMIN 2.9 g/dL (3.5-5.0); ANION GAP 13 (5-19); BLOOD UREA NITROGEN 80 mg/dL (7-20); CALCIUM 8.4 mg/dL (8.4-10.2); CARBON DIOXIDE 28 mmol/L (22-30); CHLORIDE 98 mmol/L (98-107); GLUCOSE 291 mg/dL (75-110); PHOSPHORUS 5.1 mg/dL (2.5-4.5); POTASSIUM 3.9 mmol/L (3.6-5.0); SODIUM 138.8 mmol/L (137-145)
[2018-03-02 05:07] LABS: ABSOLUTE LYMPHOCYTES# (MANUAL) 0.4 10^3/uL (0.5-4.7); ABSOLUTE MONOCYTES # (MANUAL) 0.5 10^3/uL (0.1-1.4); ABSOLUTE NEUTROPHILS# (MANUAL) 12.1 10^3/uL (1.7-8.2); BAND NEUTROPHILS % (MANUAL) 2 % (3-5); BASOPHILS % (MANUAL) 0 % (0-2); EOSINOPHILS % (MANUAL) 0 % (0-6); LYMPHOCYTES % (MANUAL) 3 % (13-45); MONOCYTES % (MANUAL) 4 % (3-13); SEGMENTED NEUTROPHILS % (MAN) 91 % (42-78); TOTAL CELLS COUNTED 100
[2018-03-02 05:14] LABS: HYPOCHROMASIA SLIGHT
[2018-03-02 05:22] LABS: PLATELET COMMENT DECREASED
[2018-03-02] MEDS: HYDROCODONE/ACETAMINOPHEN 7.5-325 MG TABLET PO PRN ×2 (06:08→16:37)
[2018-03-02] MEDS: METHYLPREDNISOLONE INJ 40 MG/1 ML SDV IV SCH ×3 (06:08→21:53)
[2018-03-02] MEDS: INSULIN LISPRO 100 UNIT/ML 3 ML VIAL SUBCUT PRN ×2 (06:09→18:12)
[2018-03-02] MEDS: IPRATROPIUM/ALBUTEROL 0.5-2.5 MG/3 ML AMPUL NEB SCH ×3 (08:00→23:55)
[2018-03-02] MEDS: LUBIPROSTONE 24 MCG CAPSULE PO SCH ×2 (10:03→21:52)
[2018-03-02] MEDS: ASPIRIN 81 MG TABLET, ENT COATED PO SCH (10:03)
[2018-03-02] MEDS: PREGABALIN 75 MG CAPSULE PO SCH (10:03)
[2018-03-02] MEDS: CEFEPIME 1 GM/D5W RTU 1 GM/50 ML RTUPB IV SCH (10:04)
[2018-03-02] MEDS: DOCUSATE SODIUM 100 MG CAPSULE PO SCH ×2 (10:04→18:04)
[2018-03-02] MEDS ORDERED: MAGNESIUM CITRATE 296 ML BOTTLE PO ONE (13:00)
[2018-03-02] MEDS ORDERED: LACTULOSE SYRUP 20 GM/30 ML UDCUP PO ONE (13:00)
[2018-03-02] MEDS: MORPHINE SULFATE 10 MG/ML INJ IV PRN ×3 (13:05→20:52)
[2018-03-02] MEDS: BUMETANIDE INJ/PF 1 MG/4 ML SDV IV SCH ×2 (13:24→23:12)
[2018-03-02] MEDS: FAMOTIDINE INJ/PF 20 MG/2 ML SDV IV SCH (13:24)
[2018-03-02] MEDS: LACTULOSE SYRUP 20 GM/30 ML UDCUP PO SCH ×2 (18:02→23:12)
[2018-03-02] MEDS: CEFAZOLIN 1 GM/D5W RTU 1 GM/50 ML RTUPB IV SCH (18:04)
--- NOTE | 2018-03-02 19:27 | PDOC PROGRESS REPORT ---
Subjective Progress Note for:: 03/02/18 Subjective:: Continues to improve daily. Today his biggest complaint was not getting enough morphine. Still has not moved his bowels. Reason For Visit: PNA,ACUTE ON CHRONIC RESP FAILURE,HYPERKALEMIA Physical Exam Vital Signs: Temp Pulse Resp BP Pulse Ox 97.7 F 80 15 112/59 L 100 03/02/18 18:29 03/02/18 18:00 03/02/18 18:29 03/02/18 18:29 03/02/18 18:29 Intake & Output 03/01/18 03/02/18 03/03/18 05:59 05:59 05:59 Intake Total 705 914 616 Output Total 2040 1530 1000 Balance -6185 -616 -744 Weight 218 lb 0.595 oz 220 lb 7.396 oz General appearance: PRESENT: no acute distress, obese Respiratory exam: PRESENT: clear to auscultation dipti Cardiovascular exam: PRESENT: RRR GI/Abdominal exam: PRESENT: distended, soft. ABSENT: tenderness Extremities exam: PRESENT: other - Left BKA Neurological exam: PRESENT: alert Psychiatric exam: PRESENT: appropriate affect Skin exam: PRESENT: warm Results Laboratory Results: 03/02/18 04:05 03/02/18 04:05 03/02/18 03/02/18 04:05 04:05 WBC 13.0 H RBC 3.43 L Hgb 10.2 L Hct 31.0 L MCV 90 MCH 29.6 MCHC 32.7 RDW 17.0 H Plt Count 92 L Seg Neutrophils % Not Reportable Lymphocytes % Not Reportable Monocytes % Not Reportable Eosinophils % Not Reportable Basophils % Not Reportable Absolute Neutrophils Not Reportable Absolute Lymphocytes Not Reportable Absolute Monocytes Not Reportable Absolute Eosinophils Not Reportable Absolute Basophils Not Reportable Sodium 138.8 Potassium 3.9 Chloride 98 Carbon Dioxide 28 Anion Gap 13 BUN 80 H Creatinine 3.20 H Est GFR ( Amer) 23 L Est GFR (Non-Af Amer) 19 L Glucose 291 H Calcium 8.4 Phosphorus 5.1 H Magnesium 3.2 H Albumin 2.9 L 02/28/18 00:22 Clean Catch Midstream Urine Culture - Final Proteus Mirabilis 03/01/18 03/01/18 03/02/18 04:13 04:13 04:05 Creatine Kinase 24 L CK-MB (CK-2) 0.92 Troponin I 0.025 NT-Pro-B Natriuret Pep 76189 H Impressions: Chest X-Ray 02/27/18 19:09 IMPRESSION: CARDIAC ENLARGEMENT. VASCULAR CONGESTION. ATELECTASIS IN THE LEFT LUNG BASE. POSSIBLE LEFT PLEURAL EFFUSION. KUB X-Ray 02/28/18 00:00 IMPRESSION: DISTENDED STOMACH. PROMINENT STOOL IN THE COLON, POSSIBLE CONSTIPATION. Assessment & Plan - Diagnosis (1) Sepsis Qualifiers: Sepsis type: sepsis due to unspecified organism Qualified Code(s): A41.9 - Sepsis, unspecified organism Is this a current diagnosis for this admission?: Yes Plan: Cultures grew out Proteus, antibiotics were adjusted to reflect sensitivities. (2) Acute kidney injury superimposed on CKD Is this a current diagnosis for this admission?: Yes Plan: Stage IV at baseline. Presumably cardiorenal. His diuretics have been changed over to IV. Continue to monitor closely (3) Acute on chronic diastolic heart failure Is this a current diagnosis for this admission?: Yes Plan: Diuresing slowly on IV Bumex at his home dose. Continue. (4) Acute on chronic respiratory failure with hypoxia and hypercapnia Is this a current diagnosis for this admission?: Yes (5) Anemia in chronic kidney disease Qualifiers: Chronic kidney disease stage: stage 4 (severe) Qualified Code(s): N18.4 - Chronic kidney disease, stage 4 (severe); D63.1 - Anemia in chronic kidney disease; D63.1 - Anemia in chronic kidney disease Is this a current diagnosis for this admission?: Yes Plan: Roughly stable (6) COPD with acute exacerbation Is this a current diagnosis for this admission?: Yes Plan: Steroids, nebulizers, wean oxygen as tolerated. (7) Constipation Qualifiers: Constipation type: chronic idiopathic constipation Qualified Code(s): K59.04 - Chronic idiopathic constipation Is this a current diagnosis for this admission?: Yes Plan: Mag citrate, Amitizia, and lactulose. He is refusing enemas. 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 Continue current regimen for now. (9) Hyperlipidemia Qualifiers: Hyperlipidemia type: unspecified Qualified Code(s): E78.5 - Hyperlipidemia , unspecified Is this a current diagnosis for this admission?: Yes Plan: Currently holding his statin, resume when he is taking a full diet. (10) Hypertension Qualifiers: Hypertension type: essential hypertension Qualified Code(s): I10 - Essential (primary) hypertension Is this a current diagnosis for this admission?: Yes Plan: Controlled on current medications. Continue (11) TORRES (nonalcoholic steatohepatitis) Is this a current diagnosis for this admission?: Yes (12) Peripheral vascular disease Is this a current diagnosis for this admission?: Yes (13) Thrombocytopenia Is this a current diagnosis for this admission?: Yes Plan: Roughly stable. Continue to monitor (14) History of left below knee amputation Is this a current diagnosis for this admission?: Yes Plan: Limits his mobility
[2018-03-02] MEDS: TAMSULOSIN HCL 0.4 MG CAP.SR.24H PO SCH (21:51)
[2018-03-02] MEDS: METOPROLOL SUCCINATE 25 MG TAB.SR.24H PO SCH (21:52)
[2018-03-02] MEDS: LEVETIRACETAM IV SCH (21:53)
[2018-03-02] MEDS: NORMAL SALINE IV SCH (21:53)
[2018-03-02] MEDS: ENOXAPARIN SODIUM INJ 100 MG/1 ML DISP.SYRIN SUBCUT SCH (21:54)
[2018-03-03] MEDS: HYDROCODONE/ACETAMINOPHEN 7.5-325 MG TABLET PO PRN (01:39)
[2018-03-03] MEDS: INSULIN LISPRO 100 UNIT/ML 3 ML VIAL SUBCUT PRN ×4 (01:45→23:14)
[2018-03-03] MEDS: LACTULOSE SYRUP 20 GM/30 ML UDCUP PO SCH ×4 (06:13→23:05)
[2018-03-03] MEDS: METHYLPREDNISOLONE INJ 40 MG/1 ML SDV IV SCH ×3 (06:15→22:01)
[2018-03-03] MEDS: CEFAZOLIN 1 GM/D5W RTU 1 GM/50 ML RTUPB IV SCH (06:15)
[2018-03-03] MEDS: MORPHINE SULFATE 10 MG/ML INJ IV PRN ×3 (06:35→17:47)
[2018-03-03] MEDS: IPRATROPIUM/ALBUTEROL 0.5-2.5 MG/3 ML AMPUL NEB SCH ×3 (07:35→23:54)
[2018-03-03] MEDS ORDERED: ONDANSETRON 4 MG TAB.RAPDIS PO PRN (09:02)
[2018-03-03] MEDS: PREGABALIN 75 MG CAPSULE PO SCH (09:48)
[2018-03-03] MEDS: ASPIRIN 81 MG TABLET, ENT COATED PO SCH (09:49)
[2018-03-03] MEDS: AMIODARONE HCL 200 MG TABLET PO SCH (09:49)
[2018-03-03] MEDS: DOCUSATE SODIUM 100 MG CAPSULE PO SCH ×2 (09:49→17:39)
[2018-03-03] MEDS: LUBIPROSTONE 24 MCG CAPSULE PO SCH ×2 (09:50→22:02)
[2018-03-03] MEDS: CEFUROXIME 500 MG TABLET PO SCH (10:55)
[2018-03-03] MEDS: BUMETANIDE INJ/PF 1 MG/4 ML SDV IV SCH ×2 (13:07→23:14)
[2018-03-03] MEDS: FAMOTIDINE INJ/PF 20 MG/2 ML SDV IV SCH (13:08)
--- NOTE | 2018-03-03 14:50 | PDOC PROGRESS REPORT ---
Subjective Progress Note for:: 03/03/18 Subjective:: Clinically doing much better. Had bowel movement last night. Abdomen remains tight but improved. Remains nauseous and requesting anti-emetics. Wants to go home tomorrow. No other complaints. Reason For Visit: PNA,ACUTE ON CHRONIC RESP FAILURE,HYPERKALEMIA Physical Exam Vital Signs: Temp Pulse Resp BP Pulse Ox 97.2 F 88 15 111/66 95 03/03/18 12:22 03/03/18 12:00 03/03/18 12:22 03/03/18 12:22 03/03/18 12:22 Intake & Output 03/02/18 03/03/18 03/04/18 06:59 06:59 06:59 Intake Total 811 409 Output Total 1530 2118 525 Balance -719 -1666 -525 Weight 100 kg 102.7 kg General appearance: PRESENT: no acute distress, cooperative, obese Head exam: PRESENT: normocephalic Mouth exam: PRESENT: moist Respiratory exam: PRESENT: unlabored. ABSENT: tachypnea Cardiovascular exam: PRESENT: +S1, +S2 GI/Abdominal exam: PRESENT: distended, firm, normal bowel sounds. ABSENT: guarding, tenderness Extremities exam: PRESENT: other - Left BKA, right LE with chronic venous stasis /skin changes Neurological exam: PRESENT: alert, awake, CN II-XII grossly intact Psychiatric exam: PRESENT: appropriate affect Skin exam: PRESENT: warm Results Laboratory Results: 03/02/18 04:05 03/02/18 04:05 03/01/18 03/01/18 03/02/18 04:13 04:13 04:05 Creatine Kinase 24 L CK-MB (CK-2) 0.92 Troponin I 0.025 NT-Pro-B Natriuret Pep 55730 H Impressions: Chest X-Ray 02/27/18 19:09 IMPRESSION: CARDIAC ENLARGEMENT. VASCULAR CONGESTION. ATELECTASIS IN THE LEFT LUNG BASE. POSSIBLE LEFT PLEURAL EFFUSION. KUB X-Ray 02/28/18 00:00 IMPRESSION: DISTENDED STOMACH. PROMINENT STOOL IN THE COLON, POSSIBLE CONSTIPATION. Assessment & Plan - Diagnosis (1) Constipation Qualifiers: Constipation type: unspecified constipation type Qualified Code(s): K59.00 - Constipation, unspecified Is this a current diagnosis for this admission?: Yes Plan: Repeat issue. Has had previous admission for constipation. Aggressive bowel regimen with lactulose. BM on 03/02. Abdomen remains tight. - Continue current regimen - Advised to increase outpatient bowel regimen, titrating to BM's every 1-2 days to prevent future issues (2) Proteus septicemia Is this a current diagnosis for this admission?: Yes Plan: Urine and blood cultures positive for Proteus. Was treated with Ancef IV. - Based on sensitivities, transitioned cefuroxime 500mg PO daily (renally dosed) , should complete 14 day course total - Repeat blood cultures on 03/03 to document clearance (3) Acute kidney injury superimposed on CKD Is this a current diagnosis for this admission?: Yes Plan: Improved, now at baseline, has excellent urine output, continue to monitor (4) Anemia in chronic kidney disease Qualifiers: Chronic kidney disease stage: stage 4 (severe) Qualified Code(s): N18.4 - Chronic kidney disease, stage 4 (severe); D63.1 - Anemia in chronic kidney disease; D63.1 - Anemia in chronic kidney disease Is this a current diagnosis for this admission?: Yes Plan: Stable, no active bleeding issues, no indication for Procrit (5) Diabetes type 2, uncontrolled Qualifiers: Diabetes mellitus half-way insulin use: with half-way use Diabetes mellitus complication status: with hyperglycemia Qualified Code(s): E11.65 - Type 2 diabetes mellitus with hyperglycemia; Z79.4 - terminal operator (current) use of insulin; Z79.4 - [facility] (current) use of insulin; Z79.4 - [facility] (current ) use of insulin; Z79.4 - terminal operator (current) use of insulin Is this a current diagnosis for this admission?: Yes Plan: Reported history of medication non-compliance, continue current regimen (6) Hypertension Qualifiers: Hypertension type: essential hypertension Qualified Code(s): I10 - Essential (primary) hypertension Is this a current diagnosis for this admission?: Yes Plan: Well controlled - Time Time Spent with patient: 15-24 minutes Anticipated discharge: Home, Home with Homehealth Within: within 24 hours - If blood cultures are negative
[2018-03-03] MEDS: METOPROLOL SUCCINATE 25 MG TAB.SR.24H PO SCH (22:02)
[2018-03-03] MEDS: TAMSULOSIN HCL 0.4 MG CAP.SR.24H PO SCH (22:03)
[2018-03-03] MEDS: NORMAL SALINE IV SCH (22:04)
[2018-03-03] MEDS: ENOXAPARIN SODIUM INJ 100 MG/1 ML DISP.SYRIN SUBCUT SCH (22:04)
[2018-03-03] MEDS: LEVETIRACETAM IV SCH (22:04)
[2018-03-04] MEDS: LACTULOSE SYRUP 20 GM/30 ML UDCUP PO SCH ×3 (06:13→17:05)
[2018-03-04] MEDS: METHYLPREDNISOLONE INJ 40 MG/1 ML SDV IV SCH ×2 (06:16→23:56)
[2018-03-04] MEDS: INSULIN LISPRO 100 UNIT/ML 3 ML VIAL SUBCUT PRN (06:17)
[2018-03-04] MEDS: MORPHINE SULFATE 10 MG/ML INJ IV PRN ×2 (06:24→20:59)
[2018-03-04] MEDS: PREGABALIN 75 MG CAPSULE PO SCH (07:49)
[2018-03-04] MEDS: PROMETHAZINE HCL INJ 25 MG/1 ML VIAL IV PRN (07:49)
[2018-03-04] MEDS: IPRATROPIUM/ALBUTEROL 0.5-2.5 MG/3 ML AMPUL NEB SCH ×3 (08:54→23:54)
[2018-03-04] MEDS: ASPIRIN 81 MG TABLET, ENT COATED PO SCH (10:50)
[2018-03-04] MEDS: DOCUSATE SODIUM 100 MG CAPSULE PO SCH ×2 (10:50→17:04)
[2018-03-04] MEDS: AMIODARONE HCL 200 MG TABLET PO SCH (10:50)
[2018-03-04] MEDS: FAMOTIDINE INJ/PF 20 MG/2 ML SDV IV SCH (10:50)
[2018-03-04] MEDS: LUBIPROSTONE 24 MCG CAPSULE PO SCH ×2 (10:51→23:56)
[2018-03-04] MEDS: CEFUROXIME 500 MG TABLET PO SCH (10:52)
[2018-03-04 11:50] LABS: HEMATOCRIT 33.7 % (37.9-51.0); MEAN CORPUSCULAR HEMOGLOBIN 29.2 pg (27.0-33.4); MEAN CORPUSCULAR HGB CONC 32.7 g/dL (32.0-36.0); MEAN CORPUSCULAR VOLUME 89 fl (80-97); RED BLOOD COUNT 3.78 10^6/uL (4.35-5.55); RED CELL DISTRIBUTION WIDTH 16.6 % (11.5-14.0); WHITE BLOOD COUNT 8.7 10^3/uL (4.0-10.5)
[2018-03-04 12:06] LABS: ANION GAP 12 (5-19); BLOOD UREA NITROGEN 93 mg/dL (7-20); CALCIUM 8.2 mg/dL (8.4-10.2); CARBON DIOXIDE 31 mmol/L (22-30); CHLORIDE 95 mmol/L (98-107); GLUCOSE 283 mg/dL (75-110); PHOSPHORUS 4.4 mg/dL (2.5-4.5); SODIUM 138.2 mmol/L (137-145)
[2018-03-04 12:12] LABS: ABSOLUTE LYMPHOCYTES# (MANUAL) 0.4 10^3/uL (0.5-4.7); ABSOLUTE MONOCYTES # (MANUAL) 0.5 10^3/uL (0.1-1.4); ABSOLUTE NEUTROPHILS# (MANUAL) 7.7 10^3/uL (1.7-8.2); BASOPHILS % (MANUAL) 0 % (0-2); EOSINOPHILS % (MANUAL) 0 % (0-6); LYMPHOCYTES % (MANUAL) 5 % (13-45); MONOCYTES % (MANUAL) 6 % (3-13); SEGMENTED NEUTROPHILS % (MAN) 89 % (42-78); TOTAL CELLS COUNTED 100
[2018-03-04 12:22] LABS: ANISOCYTOSIS 1+
[2018-03-04 12:23] LABS: OVALOCYTES 1+; PLATELET LARGE PRESENT; POIKILOCYTOSIS 1+
[2018-03-04 12:46] LABS: PLATELET COUNT 93 10^3/uL (150-450)
[2018-03-04 12:49] LABS: PLATELET COMMENT DECREASED
--- NOTE | 2018-03-04 15:02 | PDOC PROGRESS REPORT ---
Subjective Progress Note for:: 03/04/18 Subjective:: 77 yr old male with Systolic CHF EF 30-35%, AICD CKD stage IV PVD Insulin dependent Diabetes CAD BPH Gout Oxygen dependent COPd A fib on anticoagulation Chronic pain, opiate dependent L BKA he presented to the hospital on 02/28/18 complaining of fatigue and involuntary twitching suggestive of myoclonus. EMS discovered sats of 50%- brought in on BiPAP, found to have fever and UTI. Urine and blood cultures positive for proteus. Day 5 of antibiotics. This am drowsy- no complaints. Reason For Visit: PNA,ACUTE ON CHRONIC RESP FAILURE,HYPERKALEMIA Physical Exam Vital Signs: Temp Pulse Resp BP Pulse Ox 97.7 F 80 18 111/69 97 03/04/18 11:00 03/04/18 08:54 03/04/18 11:56 03/04/18 10:45 03/04/18 11:56 Intake & Output 03/03/18 03/04/18 03/05/18 06:59 06:59 06:59 Intake Total 409 522 Output Total 2075 1715 Balance -1666 -1193 Weight 102.7 kg 100.9 kg General appearance: PRESENT: no acute distress Head exam: PRESENT: normocephalic Mouth exam: PRESENT: moist Respiratory exam: PRESENT: symmetrical, unlabored Cardiovascular exam: ABSENT: tachycardia GI/Abdominal exam: PRESENT: normal bowel sounds, soft. ABSENT: tenderness Rectal exam: PRESENT: deferred Extremities exam: PRESENT: other - L BKA Results Laboratory Results: 03/04/18 11:30 03/04/18 11:30 03/04/18 03/04/18 11:30 11:30 WBC 8.7 RBC 3.78 L Hgb 11.0 L Hct 33.7 L MCV 89 MCH 29.2 MCHC 32.7 RDW 16.6 H Plt Count 93 L Seg Neutrophils % Not Reportable Lymphocytes % Not Reportable Monocytes % Not Reportable Eosinophils % Not Reportable Basophils % Not Reportable Absolute Neutrophils Not Reportable Absolute Lymphocytes Not Reportable Absolute Monocytes Not Reportable Absolute Eosinophils Not Reportable Absolute Basophils Not Reportable Sodium 138.2 Potassium 4.0 Chloride 95 L Carbon Dioxide 31 H Anion Gap 12 BUN 93 H Creatinine 3.11 H Est GFR ( Amer) 24 L Est GFR (Non-Af Amer) 19 L Glucose 283 H Calcium 8.2 L Phosphorus 4.4 Magnesium 4.7 H* 03/01/18 03/01/18 03/02/18 04:13 04:13 04:05 Creatine Kinase 24 L CK-MB (CK-2) 0.92 Troponin I 0.025 NT-Pro-B Natriuret Pep [id number] H 03/04/18 11:30 Creatine Kinase CK-MB (CK-2) Troponin I NT-Pro-B Natriuret Pep 6020 H Impressions: Chest X-Ray 02/27/18 19:09 IMPRESSION: CARDIAC ENLARGEMENT. VASCULAR CONGESTION. ATELECTASIS IN THE LEFT LUNG BASE. POSSIBLE LEFT PLEURAL EFFUSION. KUB X-Ray 02/28/18 00:00 IMPRESSION: DISTENDED STOMACH. PROMINENT STOOL IN THE COLON, POSSIBLE CONSTIPATION. Assessment & Plan - Diagnosis (1) Myoclonus Is this a current diagnosis for this admission?: Yes Plan: Improved (2) Acute respiratory failure with hypoxia Is this a current diagnosis for this admission?: Yes Plan: Due to sepsis and pleural effusion- resolved (3) History of left below knee amputation Is this a current diagnosis for this admission?: Yes (4) Proteus septicemia Is this a current diagnosis for this admission?: Yes Plan: Day 5 of antibiotics. UTI (5) Sepsis Qualifiers: Sepsis type: sepsis due to unspecified organism Qualified Code(s): A41.9 - Sepsis, unspecified organism Is this a current diagnosis for this admission?: Yes Plan: Due to UTI- proteus (6) Acute and chronic respiratory failure Qualifiers: Respiratory failure complication: hypoxia and hypercapnia Qualified Code(s) : J96.21 - Acute and chronic respiratory failure with hypoxia; J96.22 - Acute and chronic respiratory failure with hypercapnia; J96.22 - Acute and chronic respiratory failure with hypercapnia; J96.22 - Acute and chronic respiratory failure with hypercapnia Is this a current diagnosis for this admission?: Yes (7) Anemia in chronic kidney disease Qualifiers: Chronic kidney disease stage: stage 4 (severe) Qualified Code(s): N18.4 - Chronic kidney disease, stage 4 (severe); D63.1 - Anemia in chronic kidney disease; D63.1 - Anemia in chronic kidney disease Is this a current diagnosis for this admission?: Yes Plan: stable (8) BPH (benign prostatic hyperplasia) Is this a current diagnosis for this admission?: Yes Plan: Continue outpatient meds. Discontinue Ang (9) COPD (chronic obstructive pulmonary disease) Qualifiers: COPD type: emphysema Emphysema type: unspecified Qualified Code(s): J43.9 - Emphysema, unspecified Is this a current diagnosis for this admission?: Yes Plan: Stable continue inhalers (10) Chronic anticoagulation Is this a current diagnosis for this admission?: Yes Plan: Restart Coumadin after verifying dose (11) Chronic atrial fibrillation Is this a current diagnosis for this admission?: Yes Plan: On Amiodarone- check outpatient dose. Was on Multaq per recent discharge summary. On Lovenox now for anticoagulation (12) Constipation Qualifiers: Constipation type: chronic idiopathic constipation Qualified Code(s): K59.04 - Chronic idiopathic constipation Is this a current diagnosis for this admission?: Yes Plan: Resolved with laxatives (13) Coronary artery disease Qualifiers: Coronary Disease-Associated Artery/Lesion type: unspecified vessel or lesion type [place] vs. transplanted heart: [place] heart Associated angina: angina presence unspecified Qualified Code(s): I25.10 - Atherosclerotic heart disease of [place] coronary artery without angina pectoris Is this a current diagnosis for this admission?: Yes Plan: Continue outpatient meds (14) DM type 2 (diabetes mellitus, type 2) Qualifiers: Diabetes mellitus industrial psychology professor insulin use: unspecified prison insulin use status Diabetes mellitus complication status: with unspecified complications Qualified Code(s): E11.8 - Type 2 diabetes mellitus with unspecified complications Is this a current diagnosis for this admission?: Yes Plan: Continue outpatient meds (15) Full code status Is this a current diagnosis for this admission?: Yes (16) History of implantable cardioverter-defibrillator (ICD) placement Is this a current diagnosis for this admission?: Yes (17) Hyperlipidemia Qualifiers: Hyperlipidemia type: unspecified Qualified Code(s): E78.5 - Hyperlipidemia , unspecified Is this a current diagnosis for this admission?: Yes Plan: Continue outpatient meds (18) Hypertension Qualifiers: Hypertension type: essential hypertension Qualified Code(s): I10 - Essential (primary) hypertension Is this a current diagnosis for this admission?: Yes Plan: Continue outpatient meds (19) PVD (peripheral vascular disease) Is this a current diagnosis for this admission?: Yes Plan: Continue outpatient meds - Time Time Spent with patient: 35 or more minutes
[2018-03-04] MEDS ORDERED: INSULIN LISPRO 100 UNIT/ML 3 ML VIAL SUBCUT PRN (15:05)
[2018-03-04] MEDS ORDERED: DEXTROSE 40% GEL 15 GM TUBE PO PRN ×4 (15:06→17:11)
[2018-03-04] MEDS ORDERED: GLUCAGON,HUMAN RECOMB 1 MG INJ IM PRN ×2 (15:06→17:11)
[2018-03-04] MEDS ORDERED: DEXTROSE 50%-WATER 25 GM/50 ML DISP.SYRIN IV PRN ×4 (15:06→17:11)
[2018-03-04] MEDS ORDERED: BUDESONIDE/FORMOTEROL 160-4.5 MCG 60 PUFF/6 GM MDI IH SCH (15:15)
[2018-03-04] MEDS ORDERED: METHYLPREDNISOLONE INJ 40 MG/1 ML SDV IV ONE (16:15)
[2018-03-04] MEDS ORDERED: BUDESONIDE/FORMOTEROL 160-4.5 MCG 60 PUFF/6 GM MDI IH ONE (16:30)
[2018-03-04] MEDS ORDERED: TIOTROPIUM BROMIDE DPI 5 CAP/KIT (18 MCG/CAP) IH ONE (16:30)
[2018-03-04 17:06] LABS: ARTERIAL BLOOD BASE EXCESS 4.5 mmol/L; ARTERIAL BLOOD H2CO3 1.53 mmol/L (1.05-1.35); ARTERIAL BLOOD HCO3 30.3 mmol/L (20-26); ARTERIAL BLOOD O2 SATURATION 93.9 % (94-98); ARTERIAL BLOOD PCO2 50.9 mmHg (35-45); ARTERIAL BLOOD PH 7.39 (7.35-7.45); ARTERIAL BLOOD PO2 70.8 mmHg (80-100); ARTERIAL BLOOD TOTAL CO2 31.9 mmol/L (23-27)
[2018-03-04 17:07] LABS: ARTERIAL BLOOD FIO2 40%
[2018-03-04] MEDS ORDERED: (PENDING PHARMACY ID) (Bumetanide [Bumex 2 Mg Tablet] 2 MG) PO SCH (18:00)
[2018-03-04] MEDS ORDERED: ATORVASTATIN CALCIUM 40 MG TABLET PO SCH (22:00)
[2018-03-04] MEDS: ATORVASTATIN CALCIUM 80 MG TABLET PO SCH (23:50)
[2018-03-04] MEDS: BUDESONIDE/FORMOTEROL 160-4.5 MCG 60 PUFF/6 GM MDI IH SCH (23:52)
[2018-03-04] MEDS: ENOXAPARIN SODIUM INJ 100 MG/1 ML DISP.SYRIN SUBCUT SCH (23:53)
[2018-03-04] MEDS: FINASTERIDE 5 MG TABLET PO SCH (23:54)
[2018-03-04] MEDS: METOPROLOL SUCCINATE 25 MG TAB.SR.24H PO SCH (23:57)
[2018-03-04] MEDS: LEVETIRACETAM IV SCH (23:58)
[2018-03-04] MEDS: TAMSULOSIN HCL 0.4 MG CAP.SR.24H PO SCH (23:58)
[2018-03-04] MEDS: NORMAL SALINE IV SCH (23:58)
[2018-03-05] MEDS: MORPHINE SULFATE 10 MG/ML INJ IV PRN ×3 (00:42→22:53)
[2018-03-05] MEDS ORDERED: DEXTROSE 50%-WATER SYRINGE 25 GM/50 ML DOSE IV PRN (00:43)
[2018-03-05] MEDS ORDERED: DEXTROSE 50%-WATER SYRINGE 12.5 GM/25 ML DOSE IV PRN (00:43)
[2018-03-05] MEDS ORDERED: DEXTROSE 40% GEL 15 GM TUBE PO PRN (00:43)
[2018-03-05] MEDS ORDERED: DEXTROSE 40% GEL 15 GM TUBE X 2 PO PRN (00:43)
[2018-03-05] MEDS ORDERED: GLUCAGON,HUMAN RECOMB 1 MG INJ IM PRN (00:43)
[2018-03-05] MEDS ORDERED: INSULIN LISPRO 100 UNIT/ML 3 ML VIAL SUBCUT ONE (00:45)
[2018-03-05] MEDS: INSULIN GLARGINE,HUM.REC.ANLOG 300 UNIT/3 ML INSULN.PEN SUBCUT SCH ×2 (00:46→22:54)
[2018-03-05] MEDS: LACTULOSE SYRUP 20 GM/30 ML UDCUP PO SCH ×3 (00:50→11:49)
[2018-03-05] MEDS: METHYLPREDNISOLONE INJ 40 MG/1 ML SDV IV SCH (05:40)
[2018-03-05] MEDS: LANSOPRAZOLE 15 MG TAB.RAP.DR PO SCH (05:41)
[2018-03-05 06:48] LABS: HEMOGLOBIN 10.8 g/dL (13.5-17.0); MEAN CORPUSCULAR HEMOGLOBIN 29.5 pg (27.0-33.4); MEAN CORPUSCULAR HGB CONC 32.7 g/dL (32.0-36.0); MEAN CORPUSCULAR VOLUME 91 fl (80-97); PLATELET COUNT 104 10^3/uL (150-450); RED BLOOD COUNT 3.65 10^6/uL (4.35-5.55); RED CELL DISTRIBUTION WIDTH 16.4 % (11.5-14.0); WHITE BLOOD COUNT 10.9 10^3/uL (4.0-10.5)
[2018-03-05 06:55] LABS: INTERNATIONAL RATION (INR) 1.06; PROTHROMBIN TIME 14.3 SEC (11.4-15.4)
[2018-03-05 07:03] LABS: ABSOLUTE LYMPHOCYTES# (MANUAL) 0.4 10^3/uL (0.5-4.7); ABSOLUTE MONOCYTES # (MANUAL) 1.2 10^3/uL (0.1-1.4); ABSOLUTE NEUTROPHILS# (MANUAL) 9.3 10^3/uL (1.7-8.2); ANISOCYTOSIS 1+; BASOPHILS % (MANUAL) 0 % (0-2); EOSINOPHILS % (MANUAL) 0 % (0-6); LYMPHOCYTES % (MANUAL) 4 % (13-45); MONOCYTES % (MANUAL) 11 % (3-13); PLATELET COMMENT DECREASED; POIKILOCYTOSIS SLIGHT; SEGMENTED NEUTROPHILS % (MAN) 85 % (42-78); TOTAL CELLS COUNTED 100; TOXIC GRANULATION SLIGHT
[2018-03-05 07:16] LABS: ALANINE AMINOTRANSFERASE 25 U/L (21-72); ALBUMIN 2.9 g/dL (3.5-5.0); ALKALINE PHOSPHATASE 91 U/L (38-126); ANION GAP 8 (5-19); ASPARTATE AMINO TRANSFERASE 18 U/L (17-59); BILIRUBIN,DIRECT 0.3 mg/dL (0.0-0.4); BILIRUBIN,TOTAL 0.3 mg/dL (0.2-1.3); BLOOD UREA NITROGEN 96 mg/dL (7-20); CALCIUM 8.3 mg/dL (8.4-10.2); CARBON DIOXIDE 33 mmol/L (22-30); CHLORIDE 98 mmol/L (98-107); GLUCOSE 314 mg/dL (75-110); PHOSPHORUS 3.4 mg/dL (2.5-4.5); POTASSIUM 4.2 mmol/L (3.6-5.0); SODIUM 138.9 mmol/L (137-145); TOTAL PROTEIN 5.7 g/dL (6.3-8.2)
[2018-03-05] MEDS: IPRATROPIUM/ALBUTEROL 0.5-2.5 MG/3 ML AMPUL NEB SCH ×2 (08:17→15:24)
[2018-03-05] MEDS: BUDESONIDE/FORMOTEROL 160-4.5 MCG 60 PUFF/6 GM MDI IH SCH ×2 (09:58→22:54)
[2018-03-05] MEDS: TIOTROPIUM BROMIDE DPI 5 CAP/KIT (18 MCG/CAP) IH SCH (09:58)
[2018-03-05] MEDS: DOCUSATE SODIUM 100 MG CAPSULE PO SCH ×2 (09:59→17:49)
[2018-03-05] MEDS: BUMETANIDE 1 MG TABLET PO SCH ×2 (09:59→17:50)
[2018-03-05] MEDS: ASPIRIN 81 MG TABLET, ENT COATED PO SCH (09:59)
[2018-03-05] MEDS: CEFUROXIME 500 MG TABLET PO SCH (09:59)
[2018-03-05] MEDS: LUBIPROSTONE 24 MCG CAPSULE PO SCH (09:59)
[2018-03-05] MEDS: AMIODARONE HCL 200 MG TABLET PO SCH (10:00)
[2018-03-05] MEDS: PREGABALIN 75 MG CAPSULE PO SCH (10:00)
[2018-03-05] MEDS: HYDROCODONE/ACETAMINOPHEN 7.5-325 MG TABLET PO PRN (10:40)
[2018-03-05] MEDS ORDERED: POLYETHYLENE GLYCOL 3350 POWDER 17 GM/1 PACKET PO PRN (12:19)
[2018-03-05] MEDS ORDERED: NITROGLYCERIN 0.4 MG/TAB 25 TAB/BOTTLE SL PRN (12:19)
[2018-03-05] MEDS ORDERED: ALBUTEROL SULFATE HFA (90 MCG/PUFF) 8 GM MDI (1 MDI/ER DISP) IH PRN (12:19)
[2018-03-05] MEDS ORDERED: ZOLPIDEM TARTRATE 5 MG TABLET PO PRN (12:19)
[2018-03-05] MEDS: INSULIN LISPRO 100 UNIT/ML 3 ML VIAL SUBCUT PRN ×2 (13:03→16:38)
[2018-03-05] MEDS ORDERED: APIXABAN 5 MG TABLET PO ONE (13:30)
[2018-03-05] MEDS ORDERED: LACTOBACILLUS ACIDOPHILUS 250 MG TAB PO ONE (13:30)
[2018-03-05] MEDS ORDERED: RANOLAZINE 500 MG TAB.SR.12H PO ONE (14:00)
--- NOTE | 2018-03-05 14:32 | PDOC PROGRESS REPORT ---
Subjective Progress Note for:: 03/05/18 Subjective:: 77 yr old male with Systolic CHF EF 30-35%, AICD CKD stage IV PVD Insulin dependent Diabetes CAD BPH Gout Oxygen dependent COPd A fib on anticoagulation Chronic pain, opiate dependent L BKA He presented to the hospital on 02/28/18 complaining of fatigue and involuntary twitching suggestive of myoclonus. EMS discovered sats of 50%- brought in on BiPAP, found to have fever and UTI. Urine and blood cultures positive for Proteus. Day 6 of antibiotics. He was constipated and was started on some laxatives and is now reporting loose stools. Plan of care was discussed with the patient and his . Hopefully he will be discharge in the next 24 hrs. Reason For Visit: ACUTE CHRONIC RESPIRATORY FAILURE Physical Exam Vital Signs: Temp Pulse Resp BP Pulse Ox 97.9 F 79 20 128/56 H 100 03/05/18 12:00 03/05/18 12:00 03/05/18 12:00 03/05/18 12:00 03/05/18 12:00 Intake & Output 03/04/18 03/05/18 03/06/18 06:59 06:59 06:59 Intake Total 522 100 Output Total 1715 1475 Balance -1193 -1375 Weight 100.9 kg 101.3 kg General appearance: PRESENT: no acute distress Head exam: PRESENT: normocephalic Eye exam: ABSENT: scleral icterus Ear exam: PRESENT: normal external ear exam Mouth exam: PRESENT: moist Neck exam: ABSENT: tracheal deviation Respiratory exam: PRESENT: symmetrical, unlabored. ABSENT: wheezes Cardiovascular exam: PRESENT: RRR GI/Abdominal exam: PRESENT: normal bowel sounds, soft. ABSENT: tenderness Rectal exam: PRESENT: deferred Gentrourinary exam: ABSENT: indwelling catheter Neurological exam: PRESENT: alert, awake, oriented to person Psychiatric exam: PRESENT: appropriate affect Results Laboratory Results: 03/05/18 06:31 03/05/18 06:31 03/04/18 03/05/18 03/05/18 16:35 06:31 06:31 WBC 10.9 H RBC 3.65 L Hgb 10.8 L Hct 33.0 L MCV 91 MCH 29.5 MCHC 32.7 RDW 16.4 H Plt Count 104 L Seg Neutrophils % Not Reportable Lymphocytes % Not Reportable Monocytes % Not Reportable Eosinophils % Not Reportable Basophils % Not Reportable Absolute Neutrophils Not Reportable Absolute Lymphocytes Not Reportable Absolute Monocytes Not Reportable Absolute Eosinophils Not Reportable Absolute Basophils Not Reportable Carbonic Acid 1.53 H HCO3/H2CO3 Ratio 19:1 ABG pH 7.39 ABG pCO2 50.9 H ABG pO2 70.8 L ABG HCO3 30.3 H ABG O2 Saturation 93.9 L ABG Base Excess 4.5 FiO2 40% Sodium 138.9 Potassium 4.2 Chloride 98 Carbon Dioxide 33 H Anion Gap 8 BUN 96 H Creatinine 3.05 H Est GFR ( Amer) 24 L Est GFR (Non-Af Amer) 20 L Glucose 314 H Calcium 8.3 L Phosphorus 3.4 Magnesium 4.5 H* Total Bilirubin 0.3 AST 18 ALT 25 Alkaline Phosphatase 91 Total Protein 5.7 L Albumin 2.9 L 03/01/18 03/01/18 03/02/18 04:13 04:13 04:05 Creatine Kinase 24 L CK-MB (CK-2) 0.92 Troponin I 0.025 NT-Pro-B Natriuret Pep 29648 H 03/04/18 03/05/18 11:30 06:31 Creatine Kinase CK-MB (CK-2) Troponin I NT-Pro-B Natriuret Pep 6020 H 5440 H Impressions: Chest X-Ray 02/27/18 19:09 IMPRESSION: CARDIAC ENLARGEMENT. VASCULAR CONGESTION. ATELECTASIS IN THE LEFT LUNG BASE. POSSIBLE LEFT PLEURAL EFFUSION. KUB X-Ray 02/28/18 00:00 IMPRESSION: DISTENDED STOMACH. PROMINENT STOOL IN THE COLON, POSSIBLE CONSTIPATION. Assessment & Plan - Diagnosis (1) Myoclonus Is this a current diagnosis for this admission?: Yes Plan: Continue Keppra (2) Acute respiratory failure with hypoxia Is this a current diagnosis for this admission?: Yes Plan: Due to sepsis and pleural effusion- resolved (3) History of left below knee amputation Is this a current diagnosis for this admission?: Yes (4) Proteus septicemia Is this a current diagnosis for this admission?: Yes Plan: Day 6 of antibiotics (5) Sepsis Qualifiers: Sepsis type: sepsis due to unspecified organism Qualified Code(s): A41.9 - Sepsis, unspecified organism Is this a current diagnosis for this admission?: Yes Plan: Due to UTI- proteus (6) Acute and chronic respiratory failure Qualifiers: Respiratory failure complication: hypoxia and hypercapnia Qualified Code(s) : J96.21 - Acute and chronic respiratory failure with hypoxia; J96.22 - Acute and chronic respiratory failure with hypercapnia; J96.22 - Acute and chronic respiratory failure with hypercapnia; J96.22 - Acute and chronic respiratory failure with hypercapnia Is this a current diagnosis for this admission?: Yes Plan: Resolved- back to baseline (7) Anemia in chronic kidney disease Qualifiers: Chronic kidney disease stage: stage 4 (severe) Qualified Code(s): N18.4 - Chronic kidney disease, stage 4 (severe); D63.1 - Anemia in chronic kidney disease; D63.1 - Anemia in chronic kidney disease Is this a current diagnosis for this admission?: Yes Plan: stable (8) BPH (benign prostatic hyperplasia) Is this a current diagnosis for this admission?: Yes Plan: Continue outpatient meds. Ang removed (9) COPD (chronic obstructive pulmonary disease) Qualifiers: COPD type: emphysema Emphysema type: unspecified Qualified Code(s): J43.9 - Emphysema, unspecified Is this a current diagnosis for this admission?: Yes Plan: Stable continue inhalers (10) Chronic anticoagulation Is this a current diagnosis for this admission?: Yes Plan: Restarted Eliquis. (11) Chronic atrial fibrillation Is this a current diagnosis for this admission?: Yes Plan: On Amiodarone (12) Constipation Qualifiers: Constipation type: chronic idiopathic constipation Qualified Code(s): K59.04 - Chronic idiopathic constipation Is this a current diagnosis for this admission?: Yes Plan: Resolved with Laxatives (13) Coronary artery disease Qualifiers: Coronary Disease-Associated Artery/Lesion type: unspecified vessel or lesion type [place] vs. 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 jail insulin use status Diabetes mellitus complication status: with unspecified complications Qualified Code(s): E11.8 - Type 2 diabetes mellitus with unspecified complications Is this a current diagnosis for this admission?: Yes Plan: Continue outpatient meds (15) Full code status Is this a current diagnosis for this admission?: Yes (16) History of implantable cardioverter-defibrillator (ICD) placement Is this a current diagnosis for this admission?: Yes (17) Hyperlipidemia Qualifiers: Hyperlipidemia type: unspecified Qualified Code(s): E78.5 - Hyperlipidemia , unspecified Is this a current diagnosis for this admission?: Yes Plan: Continue outpatient meds (18) Hypertension Qualifiers: Hypertension type: essential hypertension Qualified Code(s): I10 - Essential (primary) hypertension Is this a current diagnosis for this admission?: Yes Plan: Continue outpatient meds (19) PVD (peripheral vascular disease) Is this a current diagnosis for this admission?: Yes Plan: Continue outpatient meds - Time Time Spent with patient: 25-34 minutes
[2018-03-05] MEDS: LACTOBACILLUS ACIDOPHILUS 250 MG TAB PO SCH (17:49)
[2018-03-05] MEDS: HYDROCODONE/ACETAMINOPHEN 10-325 MG TABLET PO PRN (17:53)
[2018-03-05 20:57] LABS: APPEARANCE,URINE CLEAR; BILIRUBIN,URINE NEGATIVE (NEGATIVE); COLOR,URINE YELLOW; GLUCOSE, URINE 150 mg/dL (NEGATIVE); KETONES,URINE NEGATIVE (NEGATIVE); LEUKOCYTE ESTERASE,URINE NEGATIVE (NEGATIVE); NITRITE,URINE NEGATIVE (NEGATIVE); PROTEIN,URINE NEGATIVE (NEGATIVE); URINE SPECIFIC GRAVITY 1.011; UROBILINOGEN,URINE NEGATIVE mg/dL (<2.0)
[2018-03-05] MEDS: FINASTERIDE 5 MG TABLET PO SCH (22:53)
[2018-03-05] MEDS: ATORVASTATIN CALCIUM 80 MG TABLET PO SCH (22:53)
[2018-03-05] MEDS: APIXABAN 5 MG TABLET PO SCH (22:53)
[2018-03-05] MEDS: MONTELUKAST SODIUM 10 MG TABLET PO SCH (22:53)
[2018-03-05] MEDS: NORMAL SALINE IV SCH (22:54)
[2018-03-05] MEDS: TAMSULOSIN HCL 0.4 MG CAP.SR.24H PO SCH (22:54)
[2018-03-05] MEDS: RANOLAZINE 500 MG TAB.SR.12H PO SCH (22:54)
[2018-03-05] MEDS: METOPROLOL SUCCINATE 25 MG TAB.SR.24H PO SCH (22:54)
[2018-03-05] MEDS: LEVETIRACETAM IV SCH (22:54)
[2018-03-05] MEDS: ISOSORBIDE MONONITRATE 30 MG TAB.ER.24H PO SCH (22:59)
[2018-03-05] MEDS: METRONIDAZOLE 500 MG TABLET PO SCH (23:36)
[2018-03-05] MEDS ORDERED: METRONIDAZOLE 500 MG TABLET PO ONE (23:45)
[2018-03-06] MEDS: IPRATROPIUM/ALBUTEROL 0.5-2.5 MG/3 ML AMPUL NEB SCH ×3 (00:16→16:18)
[2018-03-06] MEDS: HYDROCODONE/ACETAMINOPHEN 10-325 MG TABLET PO PRN ×2 (06:37→16:15)
[2018-03-06] MEDS: LANSOPRAZOLE 15 MG TAB.RAP.DR PO SCH (06:37)
[2018-03-06] MEDS: METRONIDAZOLE 500 MG TABLET PO SCH ×3 (06:38→22:45)
[2018-03-06] MEDS: PREGABALIN 75 MG CAPSULE PO SCH (08:27)
[2018-03-06] MEDS: INSULIN LISPRO 100 UNIT/ML 3 ML VIAL SUBCUT PRN ×3 (08:27→17:16)
[2018-03-06] MEDS: LACTOBACILLUS ACIDOPHILUS 250 MG TAB PO SCH ×2 (09:36→17:16)
[2018-03-06] MEDS: RANOLAZINE 500 MG TAB.SR.12H PO SCH ×2 (09:36→22:45)
[2018-03-06] MEDS: AMIODARONE HCL 200 MG TABLET PO SCH (09:36)
[2018-03-06] MEDS: CHOLECALCIFEROL (D3) 400 UNIT TABLET PO SCH (09:36)
[2018-03-06] MEDS: TIOTROPIUM BROMIDE DPI 5 CAP/KIT (18 MCG/CAP) IH SCH (09:36)
[2018-03-06] MEDS: APIXABAN 5 MG TABLET PO SCH ×2 (09:36→22:44)
[2018-03-06] MEDS: BUMETANIDE 1 MG TABLET PO SCH ×2 (09:36→17:16)
[2018-03-06] MEDS: ASPIRIN 81 MG TABLET, ENT COATED PO SCH (09:37)
[2018-03-06] MEDS: MULTIVITAMIN TABLET PO SCH (09:37)
[2018-03-06] MEDS: ALLOPURINOL 300 MG TABLET PO SCH (09:37)
[2018-03-06] MEDS: BUDESONIDE/FORMOTEROL 160-4.5 MCG 60 PUFF/6 GM MDI IH SCH ×2 (09:37→22:45)
[2018-03-06] MEDS: DOCUSATE SODIUM 100 MG CAPSULE PO SCH ×2 (10:17→17:29)
--- NOTE | 2018-03-06 12:36 | PDOC PROGRESS REPORT ---
Subjective Progress Note for:: 03/06/18 Subjective:: 77 yr old male with Systolic CHF EF 30-35%, AICD CKD stage IV PVD Insulin dependent Diabetes CAD BPH Gout Oxygen dependent COPd A fib on anticoagulation Chronic pain, opiate dependent L BKA He presented to the hospital on 02/28/18 complaining of fatigue and involuntary twitching suggestive of myoclonus. EMS discovered sats of 50%- brought in on BiPAP, found to have fever and UTI. Urine and blood cultures positive for Proteus. Day 7 of antibiotics. He developed severe diarrhea on 03/05/18. Stool was positive for C diff and he was started on Metronidazole. Diarrhea is improving. Respiratory status is at baseline- uses 3L [place] O2 at home. Reason For Visit: ACUTE CHRONIC RESPIRATORY FAILURE Physical Exam Vital Signs: Temp Pulse Resp BP Pulse Ox 97.8 F 79 16 110/60 98 03/06/18 08:00 03/06/18 08:23 03/06/18 08:23 03/06/18 08:00 03/06/18 08:23 Intake & Output 03/05/18 03/06/18 03/07/18 06:59 06:59 06:59 Intake Total 100 2539 Output Total 1475 Balance -1375 2539 Weight 101.3 kg 101.7 kg Results Laboratory Results: 03/05/18 06:31 03/05/18 06:31 03/05/18 20:30 Urine Color YELLOW Urine Appearance CLEAR Urine pH 6.0 Ur Specific [place] 1.011 Urine Protein NEGATIVE Urine Glucose (UA) 150 H Urine Ketones NEGATIVE Urine Blood SMALL H Urine Nitrite NEGATIVE Ur Leukocyte Esterase NEGATIVE Urine WBC (Auto) 1 Urine RBC (Auto) 0 03/01/18 03/01/18 03/02/18 04:13 04:13 04:05 Creatine Kinase 24 L CK-MB (CK-2) 0.92 Troponin I 0.025 NT-Pro-B Natriuret Pep 31080 H 03/04/18 03/05/18 11:30 06:31 Creatine Kinase CK-MB (CK-2) Troponin I NT-Pro-B Natriuret Pep 6020 H 5440 H Impressions: Chest X-Ray 02/27/18 19:09 IMPRESSION: CARDIAC ENLARGEMENT. VASCULAR CONGESTION. ATELECTASIS IN THE LEFT LUNG BASE. POSSIBLE LEFT PLEURAL EFFUSION. KUB X-Ray 02/28/18 00:00 IMPRESSION: DISTENDED STOMACH. PROMINENT STOOL IN THE COLON, POSSIBLE CONSTIPATION. Assessment & Plan - Diagnosis (1) Myoclonus Is this a current diagnosis for this admission?: Yes Plan: Continue Keppra 250 mg PO QHS (2) Acute respiratory failure with hypoxia Is this a current diagnosis for this admission?: Yes Plan: Due to sepsis and pleural effusion- resolved (3) History of left below knee amputation Is this a current diagnosis for this admission?: Yes Plan: He has a prosthetic leg (4) Proteus septicemia Is this a current diagnosis for this admission?: Yes Plan: Day 7 of antibiotics. Repeat blood cultures were negative. He will need a total of 14 days of antibiotic (5) Sepsis Qualifiers: Sepsis type: sepsis due to unspecified organism Qualified Code(s): A41.9 - Sepsis, unspecified organism Is this a current diagnosis for this admission?: Yes (6) Acute and chronic respiratory failure Qualifiers: Respiratory failure complication: hypoxia and hypercapnia Qualified Code(s) : J96.21 - Acute and chronic respiratory failure with hypoxia; J96.22 - Acute and chronic respiratory failure with hypercapnia; J96.22 - Acute and chronic respiratory failure with hypercapnia; J96.22 - Acute and chronic respiratory failure with hypercapnia Is this a current diagnosis for this admission?: Yes Plan: Resolved- back to baseline (7) Anemia in chronic kidney disease Qualifiers: Chronic kidney disease stage: stage 4 (severe) Qualified Code(s): N18.4 - Chronic kidney disease, stage 4 (severe); D63.1 - Anemia in chronic kidney disease; D63.1 - Anemia in chronic kidney disease Is this a current diagnosis for this admission?: Yes Plan: stable (8) BPH (benign prostatic hyperplasia) Is this a current diagnosis for this admission?: Yes Plan: Continue outpatient meds. Ang removed (9) COPD (chronic obstructive pulmonary disease) Qualifiers: COPD type: emphysema Emphysema type: unspecified Qualified Code(s): J43.9 - Emphysema, unspecified Is this a current diagnosis for this admission?: Yes Plan: Stable continue inhalers (10) Chronic anticoagulation Is this a current diagnosis for this admission?: Yes Plan: On Eliquis. (11) Chronic atrial fibrillation Is this a current diagnosis for this admission?: Yes Plan: On Amiodarone and Eliquis (12) Constipation Qualifiers: Constipation type: chronic idiopathic constipation Qualified Code(s): K59.04 - Chronic idiopathic constipation Is this a current diagnosis for this admission?: Yes Plan: Resolved (13) Coronary artery disease Qualifiers: Coronary Disease-Associated Artery/Lesion type: unspecified vessel or lesion type [place] vs. 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 insulin use status Diabetes mellitus complication status: with unspecified complications Qualified Code(s): E11.8 - Type 2 diabetes mellitus with unspecified complications Is this a current diagnosis for this admission?: Yes Plan: Continue outpatient meds (15) Full code status Is this a current diagnosis for this admission?: Yes (16) History of implantable cardioverter-defibrillator (ICD) placement Is this a current diagnosis for this admission?: Yes (17) Hyperlipidemia Qualifiers: Hyperlipidemia type: unspecified Qualified Code(s): E78.5 - Hyperlipidemia , unspecified Is this a current diagnosis for this admission?: Yes (18) Hypertension Qualifiers: Hypertension type: essential hypertension Qualified Code(s): I10 - Essential (primary) hypertension Is this a current diagnosis for this admission?: Yes Plan: Continue outpatient meds (19) PVD (peripheral vascular disease) Is this a current diagnosis for this admission?: Yes Plan: Continue outpatient meds (20) C. difficile diarrhea Is this a current diagnosis for this admission?: Yes Plan: Continue Flagyl and Probiotic - Time Time Spent with patient: 35 or more minutes
[2018-03-06] MEDS: MORPHINE SULFATE 10 MG/ML INJ IV PRN (20:50)
[2018-03-06] MEDS: ATORVASTATIN CALCIUM 80 MG TABLET PO SCH (22:44)
[2018-03-06] MEDS: METOPROLOL SUCCINATE 25 MG TAB.SR.24H PO SCH (22:44)
[2018-03-06] MEDS: FINASTERIDE 5 MG TABLET PO SCH (22:44)
[2018-03-06] MEDS: INSULIN GLARGINE,HUM.REC.ANLOG 300 UNIT/3 ML INSULN.PEN SUBCUT SCH (22:45)
[2018-03-06] MEDS: TAMSULOSIN HCL 0.4 MG CAP.SR.24H PO SCH (22:45)
[2018-03-06] MEDS: ISOSORBIDE MONONITRATE 30 MG TAB.ER.24H PO SCH (22:45)
[2018-03-06] MEDS: MONTELUKAST SODIUM 10 MG TABLET PO SCH (22:45)
[2018-03-06] MEDS: LEVETIRACETAM IV SCH (23:03)
[2018-03-06] MEDS: NORMAL SALINE IV SCH (23:03)
[2018-03-07] MEDS: IPRATROPIUM/ALBUTEROL 0.5-2.5 MG/3 ML AMPUL NEB SCH ×3 (00:26→15:30)
[2018-03-07] MEDS: LANSOPRAZOLE 15 MG TAB.RAP.DR PO SCH (06:15)
[2018-03-07] MEDS: METRONIDAZOLE 500 MG TABLET PO SCH ×3 (06:16→22:58)
[2018-03-07 09:26] LABS: MEAN CORPUSCULAR HEMOGLOBIN 29.1 pg (27.0-33.4); MEAN CORPUSCULAR HGB CONC 32.1 g/dL (32.0-36.0); MEAN CORPUSCULAR VOLUME 91 fl (80-97); PLATELET COUNT 115 10^3/uL (150-450); RED BLOOD COUNT 3.63 10^6/uL (4.35-5.55); RED CELL DISTRIBUTION WIDTH 16.6 % (11.5-14.0); WHITE BLOOD COUNT 11.9 10^3/uL (4.0-10.5)
[2018-03-07 09:32] LABS: HEMOGLOBIN 10.6 g/dL (13.5-17.0)
[2018-03-07 09:38] LABS: ANION GAP 10 (5-19); BLOOD UREA NITROGEN 93 mg/dL (7-20); CALCIUM 8.3 mg/dL (8.4-10.2); CARBON DIOXIDE 33 mmol/L (22-30); CHLORIDE 100 mmol/L (98-107); GLUCOSE 135 mg/dL (75-110); PHOSPHORUS 4.1 mg/dL (2.5-4.5); POTASSIUM 3.7 mmol/L (3.6-5.0)
[2018-03-07] MEDS: PREGABALIN 75 MG CAPSULE PO SCH (09:39)
[2018-03-07] MEDS: ASPIRIN 81 MG TABLET, ENT COATED PO SCH (09:40)
[2018-03-07] MEDS: AMIODARONE HCL 200 MG TABLET PO SCH (09:40)
[2018-03-07] MEDS: ALLOPURINOL 300 MG TABLET PO SCH (09:40)
[2018-03-07] MEDS: RANOLAZINE 500 MG TAB.SR.12H PO SCH ×2 (09:40→22:58)
[2018-03-07] MEDS: BUMETANIDE 1 MG TABLET PO SCH ×2 (09:41→18:35)
[2018-03-07] MEDS: DOCUSATE SODIUM 100 MG CAPSULE PO SCH ×2 (09:41→17:30)
[2018-03-07] MEDS: APIXABAN 5 MG TABLET PO SCH ×2 (09:41→22:57)
[2018-03-07] MEDS: CHOLECALCIFEROL (D3) 400 UNIT TABLET PO SCH (09:42)
[2018-03-07] MEDS: TIOTROPIUM BROMIDE DPI 5 CAP/KIT (18 MCG/CAP) IH SCH (09:42)
[2018-03-07] MEDS: MULTIVITAMIN TABLET PO SCH (09:42)
[2018-03-07] MEDS: LACTOBACILLUS ACIDOPHILUS 250 MG TAB PO SCH ×2 (09:42→18:36)
[2018-03-07] MEDS: BUDESONIDE/FORMOTEROL 160-4.5 MCG 60 PUFF/6 GM MDI IH SCH ×2 (09:43→22:57)
[2018-03-07 10:34] LABS: ABSOLUTE LYMPHOCYTES# (MANUAL) 1.3 10^3/uL (0.5-4.7); ABSOLUTE MONOCYTES # (MANUAL) 0.6 10^3/uL (0.1-1.4); ABSOLUTE NEUTROPHILS# (MANUAL) 9.8 10^3/uL (1.7-8.2); BAND NEUTROPHILS % (MANUAL) 2 % (3-5); BASOPHILS % (MANUAL) 0 % (0-2); EOSINOPHILS % (MANUAL) 2 % (0-6); LYMPHOCYTES % (MANUAL) 11 % (13-45); METAMYELOCYTES % (MANUAL) 4 % (0); MONOCYTES % (MANUAL) 5 % (3-13); MYELOCYTES % (MANUAL) 1 % (0); SEGMENTED NEUTROPHILS % (MAN) 75 % (42-78); TOTAL CELLS COUNTED 100
[2018-03-07 10:37] LABS: ANISOCYTOSIS SLIGHT; PLATELET COMMENT DECREASED; PLATELET LARGE PRESENT; POLYCHROMASIA SLIGHT; TOXIC GRANULATION SLIGHT
[2018-03-07] MEDS ORDERED: ALBUTEROL SULFATE HFA (90 MCG/PUFF) 200 PUFF/8.5 GM MDI IH PRN (11:29)
[2018-03-07] MEDS ORDERED: CEFUROXIME 500 MG TABLET PO ONE (13:30)
[2018-03-07] MEDS ORDERED: ERTAPENEM SODIUM 1 GM in NORMAL SALINE 50 ML IV SCH (15:15)
--- NOTE | 2018-03-07 16:12 | Progress Note ---
Provider Note Provider Note: ID Consult Note Consultation requested by Dr Marc. Pt not seen or examined. Chart reviewed , including VS, labs, imaging reports, and provider reports. Pt is a 77 year old man with AF, systolic CHF (HFrEF), DM, PVD, COPD with chronic respiratory failure on home oxygen, chronic back pain, and s/p L BKA who presented to [facility] emergency department on 02/27/18 due to Proteus mirabilis bacteremia from a urinary source. Pt had fever initially up to 102.9 F and leukocytosis to 13k. BCx on presentation were positive for growth of Proteus mirabilis both sets. UCx from 02/28 also grew the same organism. Repeat BCx on 03/03 showed no further growth. Pt was treated with cefepime from 02/27- with ciprofloxacin from 02/28-03/01, then cefazolin, which was changed to Ceftin on 03/03. Fever resolved after the day of presentation. WBC count has improved. Pt has also had constipation early in his hospital course, which required laxatives and stool softeners (colace, lactulose, mag citrate, and lubiprostone). He had a number of loose stools subsequently. Lubiprostone was discontinued on 03/05, which was the same day that the stool was sent for PCR for C difficile testing, which was positive for the toxin gene. For this result, PO Flagyl was started, given the patent's allergy (undocumented/unspecified reaction) to vancomycin. Impression/Recommendations 1. Sepsis secondary to Proteus mirabilis bacteremia from a urinary source - Pt presented with fever, leukocytosis, Proteus mirabilis in blood and urinary cultures (unclear if the underlying problem was pyelonephritis or a complicated lower urinary tract infection, given the patient's obtundation limiting exam initially) - Treatment of otherwise uncomplicated GNR bacteremia is in the range of 7-14 days, but the optimal duration is an active area of investigation in the literature. There is growing retrospective evidence to suggest that a shorter durations (e.g. 7-10 days) may be equivalent to longer durations (10-14 days), but not every study has reached this conclusion. Generally, treatment takes into account the underlying source of the GNR bacteremia, and pyelonephritis is usually treated for a longer duration when beta-lactams are utilized. [place] courses have been studied with fluoroquinolones, which also have the benefit of excellent PO bioavailability and drug levels, but fluoroquinolones are contraindicated by pt's QTc and amiodarone use. - Bactrim could be an option at 50% usual dose or 1 DS PO daily to complete therapy, but pt would need to be monitored for hyperkalemia. Alternatively, completing 14 days of therapy with IV ertapenem may be the best option if Bactrim cannot be used due to his stage IV CKD. Which option to pursue depends upon the fragility of the patient's overall state, tolerance for risk of hyperkalemia given cardiac and renal comoribidities, etc. 2. Suspected colonization with C difficile - Pt had received numerous cathartic agents with the specific intent of producing diarrhea prior to sending stool for C difficile testing - C difficile PCR test for toxin B gene detects the presence of the gene and the potential, given the right circumstances, for the patient to develop C difficile disease, but this test has low specificity for disease. It does not distinguish colonization from disease. It can detect a low burden of organisms that harbor the gene. Given the limitations of the tests available for diagnosing C difficile disease, IDSA guideline recommendations are not to test stool in patients who have been recently administered a laxative or have other reasons to account for diarrhea, since PCR is very sensitive but not very specific. - At this point, interpretation becomes a matter of clinical judgment whether the patient appears to have colonization or disease due to C difficile. The patient has a clear alternative reason for having diarrhea when the test was sent. No worsening or continued abdominal pain or distention has been documented in notes, no worsening leukocytosis or fever. I agree with Dr Marc that a reasonable approach may be to discontinue Flagyl and observe patient closely. If diarrhea persists in absence of alternative explanation ( e.g. continued stool softener use) or suggestive signs/sx develop, then restart and complete 10-14 days in total. As it stands, however, there is not a clear diagnosis of C difficile diarrhea. Fernando Agudelo MD [facility] Infectious Diseases pager [phone]
[2018-03-07] MEDS: ERTAPENEM SODIUM 1 GM in NORMAL SALINE 50 ML IV SCH (18:35)
[2018-03-07] MEDS: HYDROCODONE/ACETAMINOPHEN 10-325 MG TABLET PO PRN (18:38)
[2018-03-07] MEDS: ATORVASTATIN CALCIUM 80 MG TABLET PO SCH (22:57)
[2018-03-07] MEDS: ISOSORBIDE MONONITRATE 30 MG TAB.ER.24H PO SCH (22:57)
[2018-03-07] MEDS: TAMSULOSIN HCL 0.4 MG CAP.SR.24H PO SCH (22:57)
[2018-03-07] MEDS: FINASTERIDE 5 MG TABLET PO SCH (22:57)
[2018-03-07] MEDS: METOPROLOL SUCCINATE 50 MG TAB.SR.24H PO SCH (22:57)
[2018-03-07] MEDS: LEVETIRACETAM 500 MG TABLET PO SCH (22:57)
[2018-03-07] MEDS: MONTELUKAST SODIUM 10 MG TABLET PO SCH (22:58)
[2018-03-07] MEDS: INSULIN GLARGINE,HUM.REC.ANLOG 300 UNIT/3 ML INSULN.PEN SUBCUT SCH (22:58)
[2018-03-08] MEDS: IPRATROPIUM/ALBUTEROL 0.5-2.5 MG/3 ML AMPUL NEB SCH ×4 (00:17→23:07)
[2018-03-08] MEDS: HYDROCODONE/ACETAMINOPHEN 10-325 MG TABLET PO PRN ×4 (01:49→23:27)
[2018-03-08] MEDS: METRONIDAZOLE 500 MG TABLET PO SCH ×3 (06:29→22:57)
[2018-03-08] MEDS: LANSOPRAZOLE 15 MG TAB.RAP.DR PO SCH (06:29)
[2018-03-08] MEDS: BUDESONIDE/FORMOTEROL 160-4.5 MCG 60 PUFF/6 GM MDI IH SCH (09:23)
[2018-03-08] MEDS: MULTIVITAMIN TABLET PO SCH (09:24)
[2018-03-08] MEDS: PREGABALIN 75 MG CAPSULE PO SCH (09:24)
[2018-03-08] MEDS: ALLOPURINOL 300 MG TABLET PO SCH (09:24)
[2018-03-08] MEDS: TIOTROPIUM BROMIDE DPI 5 CAP/KIT (18 MCG/CAP) IH SCH (09:25)
[2018-03-08] MEDS: AMIODARONE HCL 200 MG TABLET PO SCH (09:25)
[2018-03-08] MEDS: BUMETANIDE 1 MG TABLET PO SCH ×2 (09:25→17:10)
[2018-03-08] MEDS: APIXABAN 5 MG TABLET PO SCH ×2 (09:25→22:59)
[2018-03-08] MEDS: ASPIRIN 81 MG TABLET, ENT COATED PO SCH (09:25)
[2018-03-08] MEDS: RANOLAZINE 500 MG TAB.SR.12H PO SCH ×2 (09:25→22:57)
[2018-03-08] MEDS: CHOLECALCIFEROL (D3) 400 UNIT TABLET PO SCH (09:25)
[2018-03-08] MEDS: DOCUSATE SODIUM 100 MG CAPSULE PO SCH ×2 (09:25→17:10)
[2018-03-08] MEDS: LACTOBACILLUS ACIDOPHILUS 250 MG TAB PO SCH ×2 (09:27→17:10)
[2018-03-08] MEDS ORDERED: CEFUROXIME 500 MG TABLET PO SCH (10:00)
--- NOTE | 2018-03-08 14:21 | PDOC PROGRESS REPORT ---
Subjective Progress Note for:: 03/08/18 Subjective:: 77 yr old male with Systolic CHF EF 30-35%, AICD CKD stage IV PVD Insulin dependent Diabetes CAD BPH Gout Oxygen dependent COPd A fib on anticoagulation Chronic pain, opiate dependent L BKA He presented to the hospital on 02/28/18 complaining of fatigue and involuntary twitching suggestive of myoclonus. EMS discovered sats of 50%- brought in on BiPAP, found to have fever and UTI. Urine and blood cultures positive for Proteus. He developed severe diarrhea on 03/05/18. Stool was positive for C diff and he was started on Metronidazole. I doubt thisis an actual C diff infection since he was on 4 different laxatives on the day it was checked. Respiratory status is at baseline- uses 3L [place] O2 at home. He will need another 8 days of IV antibiotics and since he cannot get a PICC line in his R arm due to CKD, Dr. Morel has agreed to place a R IJ PICC line so that he may go home with IV Invanz. The case was discussed with Dr. Mcdonald Reason For Visit: ACUTE CHRONIC RESPIRATORY FAILURE Physical Exam Vital Signs: Temp Pulse Resp BP Pulse Ox 99.2 F 80 20 106/55 L 97 03/08/18 13:00 03/08/18 13:00 03/08/18 13:00 03/08/18 13:00 03/08/18 13:00 Intake & Output 03/07/18 03/08/18 03/09/18 06:59 06:59 06:59 Intake Total 2590 2091 Balance 2590 2091 Weight 102.3 kg 102.9 kg General appearance: PRESENT: no acute distress Neck exam: ABSENT: tracheal deviation Respiratory exam: PRESENT: crackles, symmetrical, unlabored Cardiovascular exam: PRESENT: RRR GI/Abdominal exam: PRESENT: normal bowel sounds, soft. ABSENT: tenderness Rectal exam: PRESENT: deferred Gentrourinary exam: ABSENT: indwelling catheter Extremities exam: PRESENT: other - L BKA. ABSENT: pedal edema Neurological exam: PRESENT: alert, awake, oriented to person, oriented to place , oriented to time, oriented to situation Psychiatric exam: PRESENT: appropriate affect Results Laboratory Results: 03/07/18 08:37 03/07/18 08:37 03/03/18 10:36 Blood Blood Culture - Final NO GROWTH IN 5 DAYS 03/03/18 09:45 Blood Blood Culture - Final NO GROWTH IN 5 DAYS 03/01/18 03/01/18 03/02/18 04:13 04:13 04:05 Creatine Kinase 24 L CK-MB (CK-2) 0.92 Troponin I 0.025 NT-Pro-B Natriuret Pep 74404 H 03/04/18 03/05/18 03/07/18 11:30 06:31 08:37 Creatine Kinase CK-MB (CK-2) Troponin I NT-Pro-B Natriuret Pep 6020 H 5440 H 3860 H Impressions: Chest X-Ray 02/27/18 19:09 IMPRESSION: CARDIAC ENLARGEMENT. VASCULAR CONGESTION. ATELECTASIS IN THE LEFT LUNG BASE. POSSIBLE LEFT PLEURAL EFFUSION. KUB X-Ray 02/28/18 00:00 IMPRESSION: DISTENDED STOMACH. PROMINENT STOOL IN THE COLON, POSSIBLE CONSTIPATION. Assessment & Plan - Diagnosis (1) Myoclonus Is this a current diagnosis for this admission?: Yes Plan: Continue Keppra 250 mg PO QHS (2) Acute respiratory failure with hypoxia Is this a current diagnosis for this admission?: Yes Plan: Due to sepsis and pleural effusion- resolved (3) History of left below knee amputation Is this a current diagnosis for this admission?: Yes Plan: He has a prosthetic leg (4) Proteus septicemia Is this a current diagnosis for this admission?: Yes Plan: Day 7 of antibiotics- now on Invanz Repeat blood cultures were negative. He will need a total of 14 days. plan for R IJ PICC line by Vascular surgery (5) Sepsis Qualifiers: Sepsis type: sepsis due to unspecified organism Qualified Code(s): A41.9 - Sepsis, unspecified organism Is this a current diagnosis for this admission?: Yes Plan: Due to UTI- proteus (6) Acute and chronic respiratory failure Qualifiers: Respiratory failure complication: hypoxia and hypercapnia Qualified Code(s) : J96.21 - Acute and chronic respiratory failure with hypoxia; J96.22 - Acute and chronic respiratory failure with hypercapnia; J96.22 - Acute and chronic respiratory failure with hypercapnia; J96.22 - Acute and chronic respiratory failure with hypercapnia Is this a current diagnosis for this admission?: Yes Plan: Resolved- back to baseline (7) Anemia in chronic kidney disease Qualifiers: Chronic kidney disease stage: stage 4 (severe) Qualified Code(s): N18.4 - Chronic kidney disease, stage 4 (severe); D63.1 - Anemia in chronic kidney disease; D63.1 - Anemia in chronic kidney disease Is this a current diagnosis for this admission?: Yes Plan: stable (8) BPH (benign prostatic hyperplasia) Is this a current diagnosis for this admission?: Yes Plan: Continue outpatient meds. Ang removed (9) COPD (chronic obstructive pulmonary disease) Qualifiers: COPD type: emphysema Emphysema type: unspecified Qualified Code(s): J43.9 - Emphysema, unspecified Is this a current diagnosis for this admission?: Yes Plan: Stable continue inhalers (10) Chronic anticoagulation Is this a current diagnosis for this admission?: Yes Plan: On Eliquis. (11) Chronic atrial fibrillation Is this a current diagnosis for this admission?: Yes Plan: On Amiodarone and Eliquis (12) Constipation Qualifiers: Constipation type: chronic idiopathic constipation Qualified Code(s): K59.04 - Chronic idiopathic constipation Is this a current diagnosis for this admission?: Yes Plan: Resolved (13) Coronary artery disease Qualifiers: Coronary Disease-Associated Artery/Lesion type: unspecified vessel or lesion type [place] vs. 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: unspecified extermination inspector insulin use status Diabetes mellitus complication status: with unspecified complications Qualified Code(s): E11.8 - Type 2 diabetes mellitus with unspecified complications Is this a current diagnosis for this admission?: Yes Plan: Continue outpatient meds (15) Full code status Is this a current diagnosis for this admission?: Yes (16) History of implantable cardioverter-defibrillator (ICD) placement Is this a current diagnosis for this admission?: Yes (17) Hyperlipidemia Qualifiers: Hyperlipidemia type: unspecified Qualified Code(s): E78.5 - Hyperlipidemia , unspecified Is this a current diagnosis for this admission?: Yes Plan: Continue outpatient meds (18) Hypertension Qualifiers: Hypertension type: essential hypertension Qualified Code(s): I10 - Essential (primary) hypertension Is this a current diagnosis for this admission?: Yes Plan: Continue outpatient meds (19) PVD (peripheral vascular disease) Is this a current diagnosis for this admission?: Yes Plan: Continue outpatient meds (20) C. difficile diarrhea Is this a current diagnosis for this admission?: Yes Plan: On Flagyl and Probiotic. Diarrhea suspected to be secondary to laxatives. No further diarrhea - Time Time Spent with patient: 35 or more minutes
[2018-03-08] MEDS: ERTAPENEM SODIUM 1 GM in NORMAL SALINE 50 ML IV SCH (17:10)
[2018-03-08] MEDS: ATORVASTATIN CALCIUM 80 MG TABLET PO SCH (22:56)
[2018-03-08] MEDS: INSULIN GLARGINE,HUM.REC.ANLOG 300 UNIT/3 ML INSULN.PEN SUBCUT SCH (22:56)
[2018-03-08] MEDS: ISOSORBIDE MONONITRATE 30 MG TAB.ER.24H PO SCH (22:57)
[2018-03-08] MEDS: FINASTERIDE 5 MG TABLET PO SCH (22:57)
[2018-03-08] MEDS: MONTELUKAST SODIUM 10 MG TABLET PO SCH (22:59)
[2018-03-08] MEDS: METOPROLOL SUCCINATE 50 MG TAB.SR.24H PO SCH (22:59)
[2018-03-08] MEDS: LEVETIRACETAM 500 MG TABLET PO SCH (22:59)
[2018-03-08] MEDS: TAMSULOSIN HCL 0.4 MG CAP.SR.24H PO SCH (22:59)
[2018-03-09] MEDS: BUDESONIDE/FORMOTEROL 160-4.5 MCG 60 PUFF/6 GM MDI IH SCH ×3 (01:01→22:52)
[2018-03-09] MEDS: METRONIDAZOLE 500 MG TABLET PO SCH ×3 (05:54→22:40)
[2018-03-09] MEDS: LANSOPRAZOLE 15 MG TAB.RAP.DR PO SCH (06:00)
[2018-03-09] MEDS: IPRATROPIUM/ALBUTEROL 0.5-2.5 MG/3 ML AMPUL NEB SCH ×2 (08:05→16:38)
[2018-03-09 09:38] LABS: HEMATOCRIT 29.8 % (37.9-51.0); HEMOGLOBIN 9.7 g/dL (13.5-17.0); MEAN CORPUSCULAR HEMOGLOBIN 29.3 pg (27.0-33.4); MEAN CORPUSCULAR HGB CONC 32.7 g/dL (32.0-36.0); MEAN CORPUSCULAR VOLUME 90 fl (80-97); PLATELET COUNT 110 10^3/uL (150-450); RED BLOOD COUNT 3.32 10^6/uL (4.35-5.55); RED CELL DISTRIBUTION WIDTH 17.1 % (11.5-14.0); WHITE BLOOD COUNT 8.7 10^3/uL (4.0-10.5)
[2018-03-09] MEDS: PREGABALIN 75 MG CAPSULE PO SCH (09:42)
[2018-03-09] MEDS: BUMETANIDE 1 MG TABLET PO SCH ×2 (09:43→17:33)
[2018-03-09] MEDS: LACTOBACILLUS ACIDOPHILUS 250 MG TAB PO SCH ×2 (09:43→17:34)
[2018-03-09] MEDS: APIXABAN 5 MG TABLET PO SCH ×2 (09:44→22:40)
[2018-03-09] MEDS: AMIODARONE HCL 200 MG TABLET PO SCH (09:44)
[2018-03-09] MEDS: MULTIVITAMIN TABLET PO SCH (09:44)
[2018-03-09] MEDS: DOCUSATE SODIUM 100 MG CAPSULE PO SCH ×2 (09:44→17:34)
[2018-03-09] MEDS: ALLOPURINOL 300 MG TABLET PO SCH (09:44)
[2018-03-09] MEDS: ASPIRIN 81 MG TABLET, ENT COATED PO SCH (09:45)
[2018-03-09] MEDS: CHOLECALCIFEROL (D3) 400 UNIT TABLET PO SCH (09:46)
[2018-03-09 09:56] LABS: ANION GAP 9 (5-19); BLOOD UREA NITROGEN 71 mg/dL (7-20); CALCIUM 7.6 mg/dL (8.4-10.2); CARBON DIOXIDE 29 mmol/L (22-30); CHLORIDE 105 mmol/L (98-107); GLUCOSE 114 mg/dL (75-110); PHOSPHORUS 4.3 mg/dL (2.5-4.5); POTASSIUM 3.4 mmol/L (3.6-5.0)
[2018-03-09] MEDS: HYDROCODONE/ACETAMINOPHEN 10-325 MG TABLET PO PRN ×3 (09:56→22:55)
[2018-03-09 10:08] LABS: ABSOLUTE MONOCYTES # (MANUAL) 0.9 10^3/uL (0.1-1.4); ABSOLUTE NEUTROPHILS# (MANUAL) 6.7 10^3/uL (1.7-8.2); ANISOCYTOSIS 1+; BASOPHILS % (MANUAL) 0 % (0-2); EOSINOPHILS % (MANUAL) 2 % (0-6); LYMPHOCYTES % (MANUAL) 11 % (13-45); METAMYELOCYTES % (MANUAL) 1 % (0); MONOCYTES % (MANUAL) 10 % (3-13); PROMYELOCYTES % (MANUAL) 1 % (0); SEGMENTED NEUTROPHILS % (MAN) 75 % (42-78); TOTAL CELLS COUNTED 100
[2018-03-09 10:09] LABS: PLATELET COMMENT DECREASED
[2018-03-09] MEDS: TIOTROPIUM BROMIDE DPI 5 CAP/KIT (18 MCG/CAP) IH SCH (10:24)
[2018-03-09] MEDS: RANOLAZINE 500 MG TAB.SR.12H PO SCH ×2 (10:24→22:41)
[2018-03-09] MEDS: METOLAZONE 2.5 MG TABLET PO SCH (11:57)
[2018-03-09] MEDS ORDERED: POTASSIUM CHLORIDE 10 MEQ CAPSULE.ER PO ONE (12:00)
[2018-03-09] MEDS ORDERED: SILVER SULFADIAZINE 1% CREAM 400 GM TP ONE (12:30)
--- NOTE | 2018-03-09 13:29 | PDOC PROGRESS REPORT ---
Subjective Progress Note for:: 03/09/18 Subjective:: 77 yr old male with Systolic CHF EF 30-35%, AICD CKD stage IV PVD Insulin dependent Diabetes CAD BPH Gout Oxygen dependent COPd A fib on anticoagulation Chronic pain, opiate dependent L BKA He presented to the hospital on 02/28/18 complaining of fatigue and involuntary twitching suggestive of myoclonus. EMS discovered sats of 50%- brought in on BiPAP, found to have fever and UTI. Urine and blood cultures positive for Proteus. He developed severe diarrhea on 03/05/18. Stool was positive for C diff and he was started on Metronidazole. I doubt this is an actual C diff infection since he was on 4 different laxatives on the day it was checked. No further diarrhea immediately after laxatives were stopped. Respiratory status is at baseline- uses 3L [place] O2 at home. He will need 7 more days of IV antibiotics and since he cannot get a PICC line due to CKD. The patient refused to get a R IJ PICC line by Dr. David Morel. A few blisters on his R leg- will add Metolazone Wed and apply silvadene cream Reason For Visit: ACUTE CHRONIC RESPIRATORY FAILURE Physical Exam Vital Signs: Temp Pulse Resp BP Pulse Ox 97.8 F 81 21 H 121/59 L 100 03/09/18 08:48 03/09/18 08:48 03/09/18 08:48 03/09/18 08:48 03/09/18 08:48 Intake & Output 03/08/18 03/09/18 03/10/18 06:59 06:59 06:59 Intake Total 2090 1741 Balance 2090 174 Weight 102.9 kg 103.2 kg General appearance: PRESENT: no acute distress, obese Head exam: PRESENT: normocephalic Ear exam: PRESENT: normal external ear exam Mouth exam: PRESENT: moist Respiratory exam: PRESENT: crackles, symmetrical, unlabored Cardiovascular exam: PRESENT: RRR GI/Abdominal exam: PRESENT: normal bowel sounds, soft. ABSENT: tenderness Rectal exam: PRESENT: deferred Gentrourinary exam: ABSENT: indwelling catheter Extremities exam: PRESENT: pedal edema Neurological exam: PRESENT: alert, awake, oriented to person, oriented to place , oriented to time, oriented to situation Skin exam: PRESENT: other - L BKA, R leg- chronic venous stasis chages Results Laboratory Results: 03/09/18 09:13 03/09/18 09:13 03/09/18 03/09/18 09:13 09:13 WBC 8.7 RBC 3.32 L Hgb 9.7 L Hct 29.8 L MCV 90 MCH 29.3 MCHC 32.7 RDW 17.1 H Plt Count 110 L Seg Neutrophils % Not Reportable Lymphocytes % Not Reportable Monocytes % Not Reportable Eosinophils % Not Reportable Basophils % Not Reportable Absolute Neutrophils Not Reportable Absolute Lymphocytes Not Reportable Absolute Monocytes Not Reportable Absolute Eosinophils Not Reportable Absolute Basophils Not Reportable Sodium 143.0 Potassium 3.4 L Chloride 105 Carbon Dioxide 29 Anion Gap 9 BUN 71 H Creatinine 2.67 H Est GFR ( Amer) 28 L Est GFR (Non-Af Amer) 23 L Glucose 114 H Calcium 7.6 L Phosphorus 4.3 Magnesium 1.8 03/03/18 10:36 Blood Blood Culture - Final NO GROWTH IN 5 DAYS 03/03/18 09:45 Blood Blood Culture - Final NO GROWTH IN 5 DAYS 03/01/18 03/01/18 03/02/18 04:13 04:13 04:05 Creatine Kinase 24 L CK-MB (CK-2) 0.92 Troponin I 0.025 NT-Pro-B Natriuret Pep [id number] H 03/04/18 03/05/18 03/07/18 11:30 06:31 08:37 Creatine Kinase CK-MB (CK-2) Troponin I NT-Pro-B Natriuret Pep 6020 H 5440 H 3860 H 03/09/18 09:13 Creatine Kinase CK-MB (CK-2) Troponin I NT-Pro-B Natriuret Pep 4620 H Impressions: Chest X-Ray 02/27/18 19:09 IMPRESSION: CARDIAC ENLARGEMENT. VASCULAR CONGESTION. ATELECTASIS IN THE LEFT LUNG BASE. POSSIBLE LEFT PLEURAL EFFUSION. KUB X-Ray 02/28/18 00:00 IMPRESSION: DISTENDED STOMACH. PROMINENT STOOL IN THE COLON, POSSIBLE CONSTIPATION. Assessment & Plan - Diagnosis (1) Myoclonus Is this a current diagnosis for this admission?: Yes Plan: Continue Keppra 250 mg PO QHS (2) Acute respiratory failure with hypoxia Is this a current diagnosis for this admission?: Yes Plan: Due to sepsis and pleural effusion- resolved (3) History of left below knee amputation Is this a current diagnosis for this admission?: Yes Plan: He has a prosthetic leg (4) Proteus septicemia Is this a current diagnosis for this admission?: Yes Plan: Day 7 of antibiotics- now on Invanz Repeat blood cultures were negative. He will need a total of 14 days. plan for R IJ PICC line by Vascular surgery (5) Sepsis Qualifiers: Sepsis type: sepsis due to unspecified organism Qualified Code(s): A41.9 - Sepsis, unspecified organism Is this a current diagnosis for this admission?: Yes Plan: Due to UTI- proteus (6) Acute and chronic respiratory failure Qualifiers: Respiratory failure complication: hypoxia and hypercapnia Qualified Code(s) : J96.21 - Acute and chronic respiratory failure with hypoxia; J96.22 - Acute and chronic respiratory failure with hypercapnia; J96.22 - Acute and chronic respiratory failure with hypercapnia; J96.22 - Acute and chronic respiratory failure with hypercapnia Is this a current diagnosis for this admission?: Yes Plan: Resolved- back to baseline (7) Anemia in chronic kidney disease Qualifiers: Chronic kidney disease stage: stage 4 (severe) Qualified Code(s): N18.4 - Chronic kidney disease, stage 4 (severe); D63.1 - Anemia in chronic kidney disease; D63.1 - Anemia in chronic kidney disease Is this a current diagnosis for this admission?: Yes Plan: stable (8) BPH (benign prostatic hyperplasia) Is this a current diagnosis for this admission?: Yes Plan: Continue outpatient meds. Ang removed (9) COPD (chronic obstructive pulmonary disease) Qualifiers: COPD type: emphysema Emphysema type: unspecified Qualified Code(s): J43.9 - Emphysema, unspecified Is this a current diagnosis for this admission?: Yes Plan: Stable continue inhalers (10) Chronic anticoagulation Is this a current diagnosis for this admission?: Yes Plan: On Eliquis. (11) Chronic atrial fibrillation Is this a current diagnosis for this admission?: Yes Plan: On Amiodarone and Eliquis (12) Constipation Qualifiers: Constipation type: chronic idiopathic constipation Qualified Code(s): K59.04 - Chronic idiopathic constipation Is this a current diagnosis for this admission?: Yes Plan: Resolved (13) Coronary artery disease Qualifiers: Coronary Disease-Associated Artery/Lesion type: unspecified vessel or lesion type [place] vs. 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 insulin use: unspecified group home insulin use status Diabetes mellitus complication status: with unspecified complications Qualified Code(s): E11.8 - Type 2 diabetes mellitus with unspecified complications Is this a current diagnosis for this admission?: Yes Plan: Continue outpatient meds (15) Full code status Is this a current diagnosis for this admission?: Yes (16) History of implantable cardioverter-defibrillator (ICD) placement Is this a current diagnosis for this admission?: Yes (17) Hyperlipidemia Qualifiers: Hyperlipidemia type: unspecified Qualified Code(s): E78.5 - Hyperlipidemia , unspecified Is this a current diagnosis for this admission?: Yes Plan: Continue outpatient meds (18) Hypertension Qualifiers: Hypertension type: essential hypertension Qualified Code(s): I10 - Essential (primary) hypertension Is this a current diagnosis for this admission?: Yes Plan: Continue outpatient meds (19) PVD (peripheral vascular disease) Is this a current diagnosis for this admission?: Yes Plan: Continue outpatient meds (20) C. difficile diarrhea Is this a current diagnosis for this admission?: Yes Plan: On Flagyl and Probiotic. Diarrhea suspected to be secondary to laxatives. No further diarrhea (21) Chronic diastolic heart failure Is this a current diagnosis for this admission?: Yes Plan: Continue current regimen Metolazone added - Time Time Spent with patient: 35 or more minutes
[2018-03-09] MEDS: ERTAPENEM SODIUM 1 GM in NORMAL SALINE 50 ML IV SCH (17:35)
[2018-03-09] MEDS: MONTELUKAST SODIUM 10 MG TABLET PO SCH (22:40)
[2018-03-09] MEDS: METOPROLOL SUCCINATE 50 MG TAB.SR.24H PO SCH (22:40)
[2018-03-09] MEDS: ATORVASTATIN CALCIUM 80 MG TABLET PO SCH (22:40)
[2018-03-09] MEDS: ISOSORBIDE MONONITRATE 30 MG TAB.ER.24H PO SCH (22:40)
[2018-03-09] MEDS: TAMSULOSIN HCL 0.4 MG CAP.SR.24H PO SCH (22:40)
[2018-03-09] MEDS: FINASTERIDE 5 MG TABLET PO SCH (22:40)
[2018-03-09] MEDS: INSULIN GLARGINE,HUM.REC.ANLOG 300 UNIT/3 ML INSULN.PEN SUBCUT SCH (22:41)
[2018-03-09] MEDS: LEVETIRACETAM 500 MG TABLET PO SCH (22:55)
[2018-03-10] MEDS: SILVER SULFADIAZINE 1% CREAM 400 GM TP SCH ×3 (00:20→22:38)
[2018-03-10] MEDS: METRONIDAZOLE 500 MG TABLET PO SCH ×3 (06:32→22:35)
[2018-03-10] MEDS: LANSOPRAZOLE 15 MG TAB.RAP.DR PO SCH (06:32)
[2018-03-10] MEDS: HYDROCODONE/ACETAMINOPHEN 10-325 MG TABLET PO PRN ×3 (06:35→22:35)
[2018-03-10] MEDS: IPRATROPIUM/ALBUTEROL 0.5-2.5 MG/3 ML AMPUL NEB SCH ×4 (07:51→23:46)
[2018-03-10] MEDS: AMIODARONE HCL 200 MG TABLET PO SCH (10:38)
[2018-03-10] MEDS: PREGABALIN 75 MG CAPSULE PO SCH (10:38)
[2018-03-10] MEDS: DOCUSATE SODIUM 100 MG CAPSULE PO SCH ×2 (10:38→18:10)
[2018-03-10] MEDS: ALLOPURINOL 300 MG TABLET PO SCH (10:39)
[2018-03-10] MEDS: ASPIRIN 81 MG TABLET, ENT COATED PO SCH (10:40)
[2018-03-10] MEDS: APIXABAN 5 MG TABLET PO SCH ×2 (10:40→22:33)
[2018-03-10] MEDS: MULTIVITAMIN TABLET PO SCH (10:40)
[2018-03-10] MEDS: LACTOBACILLUS ACIDOPHILUS 250 MG TAB PO SCH ×2 (10:41→18:10)
[2018-03-10] MEDS: BUMETANIDE 1 MG TABLET PO SCH ×2 (10:41→18:12)
[2018-03-10] MEDS: RANOLAZINE 500 MG TAB.SR.12H PO SCH ×2 (10:42→22:35)
[2018-03-10] MEDS: CHOLECALCIFEROL (D3) 400 UNIT TABLET PO SCH (10:42)
[2018-03-10] MEDS: BUDESONIDE/FORMOTEROL 160-4.5 MCG 60 PUFF/6 GM MDI IH SCH ×2 (10:43→22:38)
[2018-03-10] MEDS: TIOTROPIUM BROMIDE DPI 5 CAP/KIT (18 MCG/CAP) IH SCH (10:43)
--- NOTE | 2018-03-10 18:59 | PDOC PROGRESS REPORT ---
Subjective Progress Note for:: 03/10/18 Subjective:: Patient is seen resting in the bedside chair. He denies any chest pain, shortness of breath or dyspnea at rest. He denies any nausea, vomiting or abdominal pain at the present time. States he still is having a small amount of diarrhea. He denies any fevers or chills overnight. He denies any significant arthralgias or myalgias at the present time. Remaining review systems are negative. Summary He presented to the hospital on 02/28/18 complaining of fatigue and involuntary twitching suggestive of myoclonus. EMS discovered sats of 50%- brought in on BiPAP, found to have fever and UTI. Urine and blood cultures positive for Proteus. He developed severe diarrhea on 03/05/18. Stool was positive for C diff and he was started on Metronidazole. I doubt this is an actual C diff infection since he was on 4 different laxatives on the day it was checked. No further diarrhea immediately after laxatives were stopped. Respiratory status is at baseline- uses 3L [place] O2 at home. He will need 7 more days of IV antibiotics and since he cannot get a PICC line due to CKD. The patient refused to get a R IJ PICC line by Dr. David Morel. A few blisters on his R leg- will add Metolazone Wed and apply silvadene cream Reason For Visit: ACUTE CHRONIC RESPIRATORY FAILURE Physical Exam Vital Signs: Temp Pulse Resp BP Pulse Ox 98.7 F 81 16 109/53 L 100 03/10/18 16:11 03/10/18 16:11 03/10/18 16:11 03/10/18 16:11 03/10/18 16:11 Intake & Output 03/09/18 03/10/18 03/11/18 06:59 06:59 06:59 Intake Total 1741 2392 900 Balance 1741 2392 900 Weight 103.2 kg 101.8 kg General appearance: PRESENT: no acute distress, obese, well-developed, well- nourished Head exam: PRESENT: atraumatic, normocephalic Eye exam: PRESENT: conjunctiva pink, EOMI, PERRLA. ABSENT: scleral icterus Ear exam: PRESENT: normal external ear exam Mouth exam: PRESENT: moist, tongue midline Neck exam: ABSENT: carotid bruit, JVD, lymphadenopathy, thyromegaly Respiratory exam: PRESENT: decreased breath sounds - Lateral basis, symmetrical , unlabored Cardiovascular exam: PRESENT: irregular rhythm, +S1, +S2 Pulses: PRESENT: normal carotid pulses, normal radial pulses Vascular exam: PRESENT: normal capillary refill GI/Abdominal exam: PRESENT: normal bowel sounds, soft. ABSENT: distended, guarding, mass, organolmegaly, rebound, tenderness Rectal exam: PRESENT: deferred Extremities exam: PRESENT: other - Left BKA from a chronic venous stasis in the right Musculoskeletal exam: PRESENT: ambulatory, full ROM, tenderness Neurological exam: PRESENT: alert - Right lower extremity, awake, oriented to person, oriented to place, oriented to time, oriented to situation, CN II-XII grossly intact. ABSENT: motor sensory deficit Psychiatric exam: PRESENT: appropriate affect, normal mood. ABSENT: homicidal ideation, suicidal ideation Skin exam: PRESENT: erythema, vesicles, warm Results Laboratory Results: 03/09/18 09:13 03/09/18 09:13 03/01/18 03/01/18 03/02/18 04:13 04:13 04:05 Creatine Kinase 24 L CK-MB (CK-2) 0.92 Troponin I 0.025 NT-Pro-B Natriuret Pep [id number] H 03/04/18 03/05/18 03/07/18 11:30 06:31 08:37 Creatine Kinase CK-MB (CK-2) Troponin I NT-Pro-B Natriuret Pep 6020 H 5440 H 3860 H 03/09/18 09:13 Creatine Kinase CK-MB (CK-2) Troponin I NT-Pro-B Natriuret Pep 4620 H Impressions: Chest X-Ray 02/27/18 19:09 IMPRESSION: CARDIAC ENLARGEMENT. VASCULAR CONGESTION. ATELECTASIS IN THE LEFT LUNG BASE. POSSIBLE LEFT PLEURAL EFFUSION. KUB X-Ray 02/28/18 00:00 IMPRESSION: DISTENDED STOMACH. PROMINENT STOOL IN THE COLON, POSSIBLE CONSTIPATION. Assessment & Plan - Diagnosis (1) Proteus septicemia Is this a current diagnosis for this admission?: Yes Plan: Patient will require 6 days of IV antibiotics further. Unable to place PICC line at this time. (2) C. difficile diarrhea Is this a current diagnosis for this admission?: Yes Plan: On Flagyl and lactobacillus. (3) Acute respiratory failure with hypoxia Is this a current diagnosis for this admission?: Yes Plan: Resolved to baseline. (4) History of left below knee amputation Is this a current diagnosis for this admission?: Yes (5) Myoclonus Is this a current diagnosis for this admission?: Yes Plan: Continue Tegretol (6) Sepsis Qualifiers: Sepsis type: sepsis due to unspecified organism Qualified Code(s): A41.9 - Sepsis, unspecified organism Is this a current diagnosis for this admission?: Yes Plan: Resolved with IV fluids and antibiotics (7) Acute kidney injury superimposed on CKD Is this a current diagnosis for this admission?: Yes (8) Acute on chronic diastolic heart failure Is this a current diagnosis for this admission?: Yes Plan: Continue current medications he is (9) Blisters of multiple sites Is this a current diagnosis for this admission?: Yes Plan: Silvadene cream as directed - Time Time Spent with patient: 25-34 minutes Total Critical Time (Minutes): 20 Anticipated discharge: Home with Homehealth
[2018-03-10] MEDS: ERTAPENEM SODIUM 0.5 GM in NORMAL SALINE 50 ML IV SCH (19:26)
[2018-03-10 21:11] LABS: APPEARANCE,URINE CLOUDY; BILIRUBIN,URINE NEGATIVE (NEGATIVE); COLOR,URINE AMBER; GLUCOSE, URINE 50 mg/dL (NEGATIVE); KETONES,URINE NEGATIVE (NEGATIVE); LEUKOCYTE ESTERASE,URINE TRACE (NEGATIVE); NITRITE,URINE NEGATIVE (NEGATIVE); PROTEIN,URINE 30 mg/dL (NEGATIVE); UROBILINOGEN,URINE NEGATIVE mg/dL (<2.0)
[2018-03-10] MEDS: FINASTERIDE 5 MG TABLET PO SCH (22:33)
[2018-03-10] MEDS: ATORVASTATIN CALCIUM 80 MG TABLET PO SCH (22:33)
[2018-03-10] MEDS: ISOSORBIDE MONONITRATE 30 MG TAB.ER.24H PO SCH (22:33)
[2018-03-10] MEDS: INSULIN GLARGINE,HUM.REC.ANLOG 300 UNIT/3 ML INSULN.PEN SUBCUT SCH (22:34)
[2018-03-10] MEDS: TAMSULOSIN HCL 0.4 MG CAP.SR.24H PO SCH (22:35)
[2018-03-10] MEDS: METOPROLOL SUCCINATE 50 MG TAB.SR.24H PO SCH (22:35)
[2018-03-10] MEDS: MONTELUKAST SODIUM 10 MG TABLET PO SCH (22:35)
[2018-03-10] MEDS: LEVETIRACETAM 500 MG TABLET PO SCH (22:36)
[2018-03-11] MEDS: LANSOPRAZOLE 15 MG TAB.RAP.DR PO SCH (06:21)
[2018-03-11] MEDS: METRONIDAZOLE 500 MG TABLET PO SCH ×3 (06:29→23:23)
[2018-03-11] MEDS: HYDROCODONE/ACETAMINOPHEN 10-325 MG TABLET PO PRN ×3 (06:35→23:26)
[2018-03-11 07:31] LABS: HEMATOCRIT 30.9 % (37.9-51.0); HEMOGLOBIN 10.2 g/dL (13.5-17.0); MEAN CORPUSCULAR HEMOGLOBIN 29.9 pg (27.0-33.4); MEAN CORPUSCULAR HGB CONC 33.1 g/dL (32.0-36.0); MEAN CORPUSCULAR VOLUME 91 fl (80-97); PLATELET COUNT 111 10^3/uL (150-450); RED BLOOD COUNT 3.41 10^6/uL (4.35-5.55); RED CELL DISTRIBUTION WIDTH 17.3 % (11.5-14.0); WHITE BLOOD COUNT 7.4 10^3/uL (4.0-10.5)
[2018-03-11 07:52] LABS: ANION GAP 14 (5-19); BLOOD UREA NITROGEN 55 mg/dL (7-20); CALCIUM 8.3 mg/dL (8.4-10.2); CARBON DIOXIDE 29 mmol/L (22-30); CHLORIDE 102 mmol/L (98-107); GLUCOSE 87 mg/dL (75-110); POTASSIUM 3.4 mmol/L (3.6-5.0)
[2018-03-11 08:07] LABS: ABSOLUTE MONOCYTES # (MANUAL) 0.8 10^3/uL (0.1-1.4); ABSOLUTE NEUTROPHILS# (MANUAL) 5.4 10^3/uL (1.7-8.2); BAND NEUTROPHILS % (MANUAL) 2 % (3-5); BASOPHILS % (MANUAL) 0 % (0-2); EOSINOPHILS % (MANUAL) 2 % (0-6); LYMPHOCYTES % (MANUAL) 14 % (13-45); MONOCYTES % (MANUAL) 11 % (3-13); SEGMENTED NEUTROPHILS % (MAN) 71 % (42-78); TOTAL CELLS COUNTED 100
[2018-03-11 08:08] LABS: ANISOCYTOSIS 1+; PLATELET COMMENT DECREASED; POIKILOCYTOSIS 1+; TEAR DROP CELLS 1+
[2018-03-11] MEDS: IPRATROPIUM/ALBUTEROL 0.5-2.5 MG/3 ML AMPUL NEB SCH ×2 (08:13→16:11)
[2018-03-11] MEDS: BUDESONIDE/FORMOTEROL 160-4.5 MCG 60 PUFF/6 GM MDI IH SCH ×2 (09:28→23:18)
[2018-03-11] MEDS: SILVER SULFADIAZINE 1% CREAM 400 GM TP SCH ×2 (09:28→23:27)
[2018-03-11] MEDS: APIXABAN 5 MG TABLET PO SCH ×2 (09:29→23:21)
[2018-03-11] MEDS: BUMETANIDE 1 MG TABLET PO SCH ×2 (09:30→18:08)
[2018-03-11] MEDS: PREGABALIN 75 MG CAPSULE PO SCH (09:30)
[2018-03-11] MEDS: AMIODARONE HCL 200 MG TABLET PO SCH (09:30)
[2018-03-11] MEDS: DOCUSATE SODIUM 100 MG CAPSULE PO SCH ×2 (09:30→17:55)
[2018-03-11] MEDS: ALLOPURINOL 300 MG TABLET PO SCH (09:30)
[2018-03-11] MEDS: ASPIRIN 81 MG TABLET, ENT COATED PO SCH (09:30)
[2018-03-11] MEDS: CHOLECALCIFEROL (D3) 400 UNIT TABLET PO SCH (09:30)
[2018-03-11] MEDS: LACTOBACILLUS ACIDOPHILUS 250 MG TAB PO SCH ×2 (09:31→18:07)
[2018-03-11] MEDS: MULTIVITAMIN TABLET PO SCH (09:31)
[2018-03-11] MEDS: RANOLAZINE 500 MG TAB.SR.12H PO SCH ×2 (09:31→23:24)
[2018-03-11] MEDS: TIOTROPIUM BROMIDE DPI 5 CAP/KIT (18 MCG/CAP) IH SCH (09:32)
[2018-03-11] MEDS: METOLAZONE 2.5 MG TABLET PO SCH (15:53)
[2018-03-11] MEDS: INSULIN LISPRO 100 UNIT/ML 3 ML VIAL SUBCUT PRN ×2 (18:07→23:26)
[2018-03-11] MEDS: ERTAPENEM SODIUM 0.5 GM in NORMAL SALINE 50 ML IV SCH (18:07)
--- NOTE | 2018-03-11 20:59 | PDOC PROGRESS REPORT ---
Subjective Progress Note for:: 03/11/18 Subjective:: No new complaint, no fever or chills, no chest pain or shortness of breath or palpitations. Diarrhea improving. No nausea or vomiting. Summary He presented to the hospital on 02/28/18 complaining of fatigue and involuntary twitching suggestive of myoclonus. EMS discovered sats of 50%- brought in on BiPAP, found to have fever and UTI. Urine and blood cultures positive for Proteus. He developed severe diarrhea on 03/05/18. Stool was positive for C diff and he was started on Metronidazole. Questionable if this is an actual C diff infection since he was on 4 different laxatives on the day it was checked. No further diarrhea immediately after laxatives were stopped. Respiratory status is at baseline- uses 3L [place] O2 at home. He will need 7 more days of IV antibiotics and since he cannot get a PICC line due to CKD. The patient refused to get a R IJ PICC line by Dr. David Morel. A few blisters on his R leg--being treated with metolazone Wed and apply silvadene cream Reason For Visit: ACUTE CHRONIC RESPIRATORY FAILURE Physical Exam Vital Signs: Temp Pulse Resp BP Pulse Ox 97.9 F 80 18 112/59 L 95 03/11/18 12:38 03/11/18 16:11 03/11/18 16:11 03/11/18 12:38 03/11/18 16:11 Intake & Output 03/10/18 03/11/18 03/12/18 06:59 06:59 06:59 Intake Total 2392 1490 1200 Output Total 700 Balance 2392 790 1200 Weight 101.8 kg 101.8 kg General appearance: PRESENT: no acute distress, obese Head exam: PRESENT: normocephalic Ear exam: PRESENT: normal external ear exam Mouth exam: PRESENT: moist Respiratory exam: PRESENT: crackles, symmetrical, unlabored Cardiovascular exam: PRESENT: RRR GI/Abdominal exam: PRESENT: normal bowel sounds, soft. ABSENT: tenderness Rectal exam: PRESENT: deferred Gentrourinary exam: ABSENT: indwelling catheter Extremities exam: PRESENT: pedal edema Neurological exam: PRESENT: alert, awake, oriented to person, oriented to place , oriented to time, oriented to situation Skin exam: PRESENT: other - L BKA, R leg- chronic venous stasis chages Results Laboratory Results: 03/11/18 06:38 03/11/18 06:38 03/10/18 03/11/18 03/11/18 20:19 06:38 06:38 WBC 7.4 RBC 3.41 L Hgb 10.2 L Hct 30.9 L MCV 91 MCH 29.9 MCHC 33.1 RDW 17.3 H Plt Count 111 L Seg Neutrophils % Not Reportable Lymphocytes % Not Reportable Monocytes % Not Reportable Eosinophils % Not Reportable Basophils % Not Reportable Absolute Neutrophils Not Reportable Absolute Lymphocytes Not Reportable Absolute Monocytes Not Reportable Absolute Eosinophils Not Reportable Absolute Basophils Not Reportable Sodium 145.0 Potassium 3.4 L Chloride 102 Carbon Dioxide 29 Anion Gap 14 BUN 55 H Creatinine 2.19 H Est GFR ( Amer) 35 L Est GFR (Non-Af Amer) 29 L Glucose 87 Calcium 8.3 L Magnesium 1.5 L Urine Color DIEGO Urine Appearance CLOUDY Urine pH 6.0 Ur Specific [place] 1.010 Urine Protein 30 H Urine Glucose (UA) 50 H Urine Ketones NEGATIVE Urine Blood LARGE H Urine Nitrite NEGATIVE Ur Leukocyte Esterase TRACE H Urine WBC (Auto) 43 Urine RBC (Auto) >182 03/01/18 03/01/18 03/02/18 04:13 04:13 04:05 Creatine Kinase 24 L CK-MB (CK-2) 0.92 Troponin I 0.025 NT-Pro-B Natriuret Pep 24959 H 03/04/18 03/05/18 03/07/18 11:30 06:31 08:37 Creatine Kinase CK-MB (CK-2) Troponin I NT-Pro-B Natriuret Pep 6020 H 5440 H 3860 H 03/09/18 09:13 Creatine Kinase CK-MB (CK-2) Troponin I NT-Pro-B Natriuret Pep 4620 H Impressions: Chest X-Ray 02/27/18 19:09 IMPRESSION: CARDIAC ENLARGEMENT. VASCULAR CONGESTION. ATELECTASIS IN THE LEFT LUNG BASE. POSSIBLE LEFT PLEURAL EFFUSION. KUB X-Ray 02/28/18 00:00 IMPRESSION: DISTENDED STOMACH. PROMINENT STOOL IN THE COLON, POSSIBLE CONSTIPATION. Assessment & Plan - Plan Summary Plan Summary: (1) Proteus septicemia Is this a current diagnosis for this admission?: Yes Plan: Patient will require 5 more days of IV antibiotics. Unable to place PICC line at this time. (2) C. difficile diarrhea Is this a current diagnosis for this admission?: Yes Plan: On Flagyl and lactobacillus. (3) Acute respiratory failure with hypoxia Is this a current diagnosis for this admission?: Yes Plan: Resolved to baseline. (4) History of left below knee amputation Is this a current diagnosis for this admission?: Yes (5) Myoclonus Is this a current diagnosis for this admission?: Yes Plan: Continue Tegretol (6) Sepsis Qualifiers: Sepsis type: sepsis due to unspecified organism Qualified Code(s): A41.9 - Sepsis, unspecified organism Is this a current diagnosis for this admission?: Yes Plan: Resolved with IV fluids and antibiotics (7) Acute kidney injury superimposed on CKD Is this a current diagnosis for this admission?: Yes (8) Acute on chronic diastolic heart failure Is this a current diagnosis for this admission?: Yes Plan: Continue current medications he is (9) Blisters of multiple sites Is this a current diagnosis for this admission?: Yes Plan: Silvadene cream as directed
[2018-03-11] MEDS: ISOSORBIDE MONONITRATE 30 MG TAB.ER.24H PO SCH (23:22)
[2018-03-11] MEDS: FINASTERIDE 5 MG TABLET PO SCH (23:22)
[2018-03-11] MEDS: ATORVASTATIN CALCIUM 80 MG TABLET PO SCH (23:22)
[2018-03-11] MEDS: METOPROLOL SUCCINATE 50 MG TAB.SR.24H PO SCH (23:22)
[2018-03-11] MEDS: LEVETIRACETAM 500 MG TABLET PO SCH (23:22)
[2018-03-11] MEDS: MONTELUKAST SODIUM 10 MG TABLET PO SCH (23:23)
[2018-03-11] MEDS: INSULIN GLARGINE,HUM.REC.ANLOG 300 UNIT/3 ML INSULN.PEN SUBCUT SCH (23:25)
[2018-03-11] MEDS: TAMSULOSIN HCL 0.4 MG CAP.SR.24H PO SCH (23:25)
[2018-03-12] MEDS: IPRATROPIUM/ALBUTEROL 0.5-2.5 MG/3 ML AMPUL NEB SCH ×4 (00:03→23:28)
[2018-03-12 08:01] LABS: HEMATOCRIT 30.3 % (37.9-51.0); HEMOGLOBIN 10.1 g/dL (13.5-17.0); MEAN CORPUSCULAR HEMOGLOBIN 29.6 pg (27.0-33.4); MEAN CORPUSCULAR HGB CONC 33.2 g/dL (32.0-36.0); MEAN CORPUSCULAR VOLUME 89 fl (80-97); PLATELET COUNT 105 10^3/uL (150-450); RED BLOOD COUNT 3.39 10^6/uL (4.35-5.55); RED CELL DISTRIBUTION WIDTH 17.1 % (11.5-14.0); WHITE BLOOD COUNT 7.3 10^3/uL (4.0-10.5)
[2018-03-12 08:03] LABS: ANION GAP 9 (5-19); BLOOD UREA NITROGEN 54 mg/dL (7-20); CALCIUM 8.4 mg/dL (8.4-10.2); CARBON DIOXIDE 34 mmol/L (22-30); CHLORIDE 101 mmol/L (98-107); GLUCOSE 91 mg/dL (75-110); POTASSIUM 3.3 mmol/L (3.6-5.0); SODIUM 143.6 mmol/L (137-145)
[2018-03-12] MEDS: PREGABALIN 75 MG CAPSULE PO SCH (08:15)
[2018-03-12] MEDS: LANSOPRAZOLE 15 MG TAB.RAP.DR PO SCH (08:15)
[2018-03-12] MEDS: METRONIDAZOLE 500 MG TABLET PO SCH ×3 (08:15→22:05)
[2018-03-12 08:49] LABS: ABSOLUTE LYMPHOCYTES# (MANUAL) 0.8 10^3/uL (0.5-4.7); ABSOLUTE MONOCYTES # (MANUAL) 0.3 10^3/uL (0.1-1.4); ABSOLUTE NEUTROPHILS# (MANUAL) 5.9 10^3/uL (1.7-8.2); BASOPHILS % (MANUAL) 0 % (0-2); EOSINOPHILS % (MANUAL) 4 % (0-6); LYMPHOCYTES % (MANUAL) 11 % (13-45); MONOCYTES % (MANUAL) 4 % (3-13); SEGMENTED NEUTROPHILS % (MAN) 81 % (42-78); TOTAL CELLS COUNTED 100
[2018-03-12 08:50] LABS: ANISOCYTOSIS 1+; OVALOCYTES SLIGHT; PLATELET COMMENT DECREASED; POIKILOCYTOSIS SLIGHT; TEAR DROP CELLS SLIGHT
[2018-03-12] MEDS: DOCUSATE SODIUM 100 MG CAPSULE PO SCH ×2 (10:58→18:21)
[2018-03-12] MEDS: CHOLECALCIFEROL (D3) 400 UNIT TABLET PO SCH (10:59)
[2018-03-12] MEDS: AMIODARONE HCL 200 MG TABLET PO SCH (10:59)
[2018-03-12] MEDS: MULTIVITAMIN TABLET PO SCH (10:59)
[2018-03-12] MEDS: ASPIRIN 81 MG TABLET, ENT COATED PO SCH (10:59)
[2018-03-12] MEDS: LACTOBACILLUS ACIDOPHILUS 250 MG TAB PO SCH ×2 (10:59→18:21)
[2018-03-12] MEDS: RANOLAZINE 500 MG TAB.SR.12H PO SCH ×2 (10:59→22:04)
[2018-03-12] MEDS: APIXABAN 5 MG TABLET PO SCH ×2 (11:00→22:05)
[2018-03-12] MEDS: ALLOPURINOL 300 MG TABLET PO SCH (11:00)
[2018-03-12] MEDS: TIOTROPIUM BROMIDE DPI 5 CAP/KIT (18 MCG/CAP) IH SCH (11:00)
[2018-03-12] MEDS: SILVER SULFADIAZINE 1% CREAM 400 GM TP SCH ×2 (11:01→23:29)
[2018-03-12] MEDS: BUDESONIDE/FORMOTEROL 160-4.5 MCG 60 PUFF/6 GM MDI IH SCH ×2 (11:01→22:03)
[2018-03-12] MEDS: BUMETANIDE 1 MG TABLET PO SCH ×2 (11:28→18:25)
[2018-03-12] MEDS: INSULIN LISPRO 100 UNIT/ML 3 ML VIAL SUBCUT PRN ×2 (12:56→22:05)
[2018-03-12] MEDS ORDERED: POTASSIUM CHLORIDE 10 MEQ CAPSULE.ER PO ONE (14:00)
--- NOTE | 2018-03-12 16:54 | PDOC PROGRESS REPORT ---
Subjective Progress Note for:: 03/12/18 Subjective:: No new complaint, no fever or chills, no chest pain or shortness of breath or palpitations. Still with intermittent diarrhea. No nausea or vomiting. Summary He presented to the hospital on 02/28/18 complaining of fatigue and involuntary twitching suggestive of myoclonus. EMS discovered sats of 50%- brought in on BiPAP, found to have fever and UTI. Urine and blood cultures positive for Proteus. He developed severe diarrhea on 03/05/18. Stool was positive for C diff and he was started on Metronidazole. Questionable if this is an actual C diff infection since he was on 4 different laxatives on the day it was checked. No further diarrhea immediately after laxatives were stopped. Respiratory status is at baseline- uses 3L [place] O2 at home. He will need 7 more days of IV antibiotics and since he cannot get a PICC line due to CKD. The patient refused to get a R IJ PICC line by Dr. David Morel. A few blisters on his R leg--being treated with metolazone Wed and apply silvadene cream Reason For Visit: ACUTE CHRONIC RESPIRATORY FAILURE Physical Exam Vital Signs: Temp Pulse Resp BP Pulse Ox 98.3 F 80 16 120/66 96 03/12/18 12:00 03/12/18 16:01 03/12/18 16:01 03/12/18 12:00 03/12/18 16:01 Intake & Output 03/11/18 03/12/18 03/13/18 06:59 06:59 06:59 Intake Total 1490 2060 Output Total 700 Balance 790 2060 Weight 101.8 kg 101.8 kg General appearance: PRESENT: no acute distress, obese Head exam: PRESENT: normocephalic Ear exam: PRESENT: normal external ear exam Mouth exam: PRESENT: moist Respiratory exam: PRESENT: crackles, symmetrical, unlabored Cardiovascular exam: PRESENT: RRR GI/Abdominal exam: PRESENT: normal bowel sounds, soft. ABSENT: tenderness Rectal exam: PRESENT: deferred Gentrourinary exam: ABSENT: indwelling catheter Extremities exam: PRESENT: pedal edema Neurological exam: PRESENT: alert, awake, oriented to person, oriented to place , oriented to time, oriented to situation Skin exam: PRESENT: other - L BKA, R leg- chronic venous stasis chages Results Laboratory Results: 03/12/18 07:28 03/12/18 07:28 03/12/18 03/12/18 07:28 07:28 WBC 7.3 RBC 3.39 L Hgb 10.1 L Hct 30.3 L MCV 89 MCH 29.6 MCHC 33.2 RDW 17.1 H Plt Count 105 L Seg Neutrophils % Not Reportable Lymphocytes % Not Reportable Monocytes % Not Reportable Eosinophils % Not Reportable Basophils % Not Reportable Absolute Neutrophils Not Reportable Absolute Lymphocytes Not Reportable Absolute Monocytes Not Reportable Absolute Eosinophils Not Reportable Absolute Basophils Not Reportable Sodium 143.6 Potassium 3.3 L Chloride 101 Carbon Dioxide 34 H Anion Gap 9 BUN 54 H Creatinine 2.39 H Est GFR ( Amer) 32 L Est GFR (Non-Af Amer) 26 L Glucose 91 Calcium 8.4 03/10/18 20:19 Clean Catch Midstream Urine Culture - Final C.albicans/C.dubliniensis 03/01/18 03/01/18 03/02/18 04:13 04:13 04:05 Creatine Kinase 24 L CK-MB (CK-2) 0.92 Troponin I 0.025 NT-Pro-B Natriuret Pep 15207 H 03/04/18 03/05/18 03/07/18 11:30 06:31 08:37 Creatine Kinase CK-MB (CK-2) Troponin I NT-Pro-B Natriuret Pep 6020 H 5440 H 3860 H 03/09/18 09:13 Creatine Kinase CK-MB (CK-2) Troponin I NT-Pro-B Natriuret Pep 4620 H Impressions: Chest X-Ray 02/27/18 19:09 IMPRESSION: CARDIAC ENLARGEMENT. VASCULAR CONGESTION. ATELECTASIS IN THE LEFT LUNG BASE. POSSIBLE LEFT PLEURAL EFFUSION. KUB X-Ray 02/28/18 00:00 IMPRESSION: DISTENDED STOMACH. PROMINENT STOOL IN THE COLON, POSSIBLE CONSTIPATION. Assessment & Plan - Plan Summary Plan Summary: (1) Proteus septicemia Is this a current diagnosis for this admission?: Yes Plan: Patient will require 4 more days of IV antibiotics. Unable to have PICC line at this time. (2) C. difficile diarrhea Is this a current diagnosis for this admission?: Yes Plan: On Flagyl and lactobacillus. (3) Acute respiratory failure with hypoxia Is this a current diagnosis for this admission?: Yes Plan: Resolved to baseline. (4) History of left below knee amputation Is this a current diagnosis for this admission?: Yes (5) Myoclonus Is this a current diagnosis for this admission?: Yes Plan: Continue Tegretol (6) Sepsis Qualifiers: Sepsis type: sepsis due to unspecified organism Qualified Code(s): A41.9 - Sepsis, unspecified organism Is this a current diagnosis for this admission?: Yes Plan: Resolved with IV fluids and antibiotics (7) Acute kidney injury superimposed on CKD Is this a current diagnosis for this admission?: Yes (8) Acute on chronic diastolic heart failure Is this a current diagnosis for this admission?: Yes Plan: Continue current medications he is (9) Blisters of multiple sites Is this a current diagnosis for this admission?: Yes Plan: Silvadene cream as directed (10) Hypokalemia Is this a current diagnosis for this admission?: Yes Plan: Will replete, f/u chem 7 in a.m. (11) Hypomagnesemia Is this a current diagnosis for this admission?: Yes Plan: Will replete with mag-oxide 400mg bid x 3 days.
[2018-03-12] MEDS: ERTAPENEM SODIUM 0.5 GM in NORMAL SALINE 50 ML IV SCH (18:21)
[2018-03-12] MEDS: MAGNESIUM OXIDE 400 MG TABLET PO SCH (18:22)
[2018-03-12] MEDS: HYDROCODONE/ACETAMINOPHEN 10-325 MG TABLET PO PRN (20:35)
[2018-03-12] MEDS: ZOLPIDEM TARTRATE 5 MG TABLET PO PRN (22:04)
[2018-03-12] MEDS: FINASTERIDE 5 MG TABLET PO SCH (22:05)
[2018-03-12] MEDS: MONTELUKAST SODIUM 10 MG TABLET PO SCH (22:05)
[2018-03-12] MEDS: LEVETIRACETAM 500 MG TABLET PO SCH (22:05)
[2018-03-12] MEDS: TAMSULOSIN HCL 0.4 MG CAP.SR.24H PO SCH (22:05)
[2018-03-12] MEDS: ATORVASTATIN CALCIUM 80 MG TABLET PO SCH (22:05)
[2018-03-12] MEDS: METOPROLOL SUCCINATE 50 MG TAB.SR.24H PO SCH (22:05)
[2018-03-12] MEDS: ISOSORBIDE MONONITRATE 30 MG TAB.ER.24H PO SCH (22:06)
[2018-03-12] MEDS: INSULIN GLARGINE,HUM.REC.ANLOG 300 UNIT/3 ML INSULN.PEN SUBCUT SCH (22:06)
[2018-03-13] MEDS: LANSOPRAZOLE 15 MG TAB.RAP.DR PO SCH (04:23)
[2018-03-13] MEDS: HYDROCODONE/ACETAMINOPHEN 10-325 MG TABLET PO PRN ×3 (04:23→22:11)
[2018-03-13] MEDS: METRONIDAZOLE 500 MG TABLET PO SCH ×3 (04:24→22:14)
[2018-03-13] MEDS: IPRATROPIUM/ALBUTEROL 0.5-2.5 MG/3 ML AMPUL NEB SCH ×3 (09:30→23:05)
[2018-03-13] MEDS: PREGABALIN 75 MG CAPSULE PO SCH (09:47)
[2018-03-13] MEDS: ALLOPURINOL 300 MG TABLET PO SCH (09:47)
[2018-03-13] MEDS: MULTIVITAMIN TABLET PO SCH (09:47)
[2018-03-13] MEDS: AMIODARONE HCL 200 MG TABLET PO SCH (09:47)
[2018-03-13] MEDS: ASPIRIN 81 MG TABLET, ENT COATED PO SCH (09:47)
[2018-03-13] MEDS: CHOLECALCIFEROL (D3) 400 UNIT TABLET PO SCH (09:48)
[2018-03-13] MEDS: BUDESONIDE/FORMOTEROL 160-4.5 MCG 60 PUFF/6 GM MDI IH SCH ×2 (09:48→22:16)
[2018-03-13] MEDS: TIOTROPIUM BROMIDE DPI 5 CAP/KIT (18 MCG/CAP) IH SCH (09:48)
[2018-03-13] MEDS: BUMETANIDE 1 MG TABLET PO SCH ×2 (09:48→17:57)
[2018-03-13] MEDS: RANOLAZINE 500 MG TAB.SR.12H PO SCH ×2 (09:48→22:15)
[2018-03-13] MEDS: APIXABAN 5 MG TABLET PO SCH ×2 (09:48→22:14)
[2018-03-13] MEDS: LACTOBACILLUS ACIDOPHILUS 250 MG TAB PO SCH ×2 (09:48→17:57)
[2018-03-13] MEDS: MAGNESIUM OXIDE 400 MG TABLET PO SCH ×2 (09:49→17:43)
[2018-03-13] MEDS: DOCUSATE SODIUM 100 MG CAPSULE PO SCH ×2 (09:49→17:43)
[2018-03-13] MEDS: SILVER SULFADIAZINE 1% CREAM 400 GM TP SCH ×2 (11:09→22:16)
--- NOTE | 2018-03-13 13:15 | PDOC PROGRESS REPORT ---
Subjective Progress Note for:: 03/13/18 Subjective:: No new complaint, no fever or chills, no chest pain or shortness of breath or palpitations. Still with intermittent diarrhea, but much improved. No nausea or vomiting. Denies dysuria or polyuria, no urinary frequency. Summary He presented to the hospital on 02/28/18 complaining of fatigue and involuntary twitching suggestive of myoclonus. EMS discovered sats of 50%- brought in on BiPAP, found to have fever and UTI. Urine and blood cultures positive for Proteus. He developed severe diarrhea on 03/05/18. Stool was positive for C diff and he was started on Metronidazole. Questionable if this is an actual C diff infection since he was on 4 different laxatives on the day it was checked. No further diarrhea immediately after laxatives were stopped. Respiratory status is at baseline- uses 3L [place] O2 at home. He will need 7 more days of IV antibiotics and since he cannot get a PICC line due to CKD. The patient refused to get a R IJ PICC line after apparently Dr. David Morel explained the risks and benefits of the procedure. A few blisters on his R leg--being treated with metolazone Wed and apply silvadene cream Reason For Visit: ACUTE CHRONIC RESPIRATORY FAILURE Physical Exam Vital Signs: Temp Pulse Resp BP Pulse Ox 98.3 F 80 21 H 108/53 L 96 03/13/18 11:49 03/13/18 11:49 03/13/18 11:49 03/13/18 11:49 03/13/18 11:49 Intake & Output 03/12/18 03/13/18 03/14/18 06:59 06:59 06:59 Intake Total 2059 2014 Balance 2059 2014 Weight 101.8 kg 102.3 kg General appearance: PRESENT: no acute distress, well-developed Head exam: PRESENT: normocephalic Ear exam: PRESENT: normal external ear exam Mouth exam: PRESENT: moist Respiratory exam: PRESENT: clear, symmetrical, unlabored Cardiovascular exam: PRESENT: RRR GI/Abdominal exam: PRESENT: normal bowel sounds, soft, NT Extremities exam: PRESENT: pedal edema Neurological exam: PRESENT: alert, awake, oriented to person, oriented to place , oriented to time, oriented to situation Skin exam: PRESENT: other - L BKA, R leg- chronic venous stasis changes. Results Laboratory Results: 03/12/18 07:28 03/12/18 07:28 03/10/18 20:19 Clean Catch Midstream Urine Culture - Final C.albicans/C.dubliniensis 03/01/18 03/01/18 03/02/18 04:13 04:13 04:05 Creatine Kinase 24 L CK-MB (CK-2) 0.92 Troponin I 0.025 NT-Pro-B Natriuret Pep 52959 H 03/04/18 03/05/18 03/07/18 11:30 06:31 08:37 Creatine Kinase CK-MB (CK-2) Troponin I NT-Pro-B Natriuret Pep 6020 H 5440 H 3860 H 03/09/18 09:13 Creatine Kinase CK-MB (CK-2) Troponin I NT-Pro-B Natriuret Pep 4620 H Impressions: Chest X-Ray 02/27/18 19:09 IMPRESSION: CARDIAC ENLARGEMENT. VASCULAR CONGESTION. ATELECTASIS IN THE LEFT LUNG BASE. POSSIBLE LEFT PLEURAL EFFUSION. KUB X-Ray 02/28/18 00:00 IMPRESSION: DISTENDED STOMACH. PROMINENT STOOL IN THE COLON, POSSIBLE CONSTIPATION. Assessment & Plan - Plan Summary Plan Summary: (1) Proteus UTI septicemia Is this a current diagnosis for this admission?: Yes Plan: Patient will require 3 more days of IV antibiotics. Appears to have refused to have PICC line at this time. (2) C. difficile diarrhea Is this a current diagnosis for this admission?: Yes Plan: On Flagyl and lactobacillus. (3) Acute respiratory failure with hypoxia Is this a current diagnosis for this admission?: Yes Plan: Resolved, patient at baseline. (4) History of left below knee amputation Is this a current diagnosis for this admission?: Yes (5) Myoclonus Is this a current diagnosis for this admission?: Yes Plan: Continue Tegretol (6) Sepsis Qualifiers: Sepsis type: sepsis due to unspecified organism Qualified Code(s): A41.9 - Sepsis, unspecified organism Is this a current diagnosis for this admission?: Yes Plan: Resolved with IV fluids and antibiotics (7) Acute kidney injury superimposed on CKD Is this a current diagnosis for this admission?: Yes (8) Acute on chronic diastolic heart failure Is this a current diagnosis for this admission?: Yes Plan: Continue current medications he is (9) Blisters of multiple sites Is this a current diagnosis for this admission?: Yes Plan: Silvadene cream as directed (10) Hypokalemia Is this a current diagnosis for this admission?: Yes Plan: Was repleted, f/u chem 7 in a.m. (11) Hypomagnesemia Is this a current diagnosis for this admission?: Yes Plan: Repleting with mag-oxide 400mg bid x 3 days. 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 Patient currently asymptomatic. No longer has Ang. Will recheck UA/urine culture.
[2018-03-13] MEDS: INSULIN LISPRO 100 UNIT/ML 3 ML VIAL SUBCUT PRN ×3 (13:35→22:13)
[2018-03-13] MEDS: ERTAPENEM SODIUM 0.5 GM in NORMAL SALINE 50 ML IV SCH (17:57)
[2018-03-13] MEDS: INSULIN GLARGINE,HUM.REC.ANLOG 300 UNIT/3 ML INSULN.PEN SUBCUT SCH (22:12)
[2018-03-13] MEDS: ISOSORBIDE MONONITRATE 30 MG TAB.ER.24H PO SCH (22:13)
[2018-03-13] MEDS: LEVETIRACETAM 500 MG TABLET PO SCH (22:13)
[2018-03-13] MEDS: ATORVASTATIN CALCIUM 80 MG TABLET PO SCH (22:14)
[2018-03-13] MEDS: TAMSULOSIN HCL 0.4 MG CAP.SR.24H PO SCH (22:14)
[2018-03-13] MEDS: MONTELUKAST SODIUM 10 MG TABLET PO SCH (22:14)
[2018-03-13] MEDS: METOPROLOL SUCCINATE 50 MG TAB.SR.24H PO SCH (22:14)
[2018-03-13] MEDS: FINASTERIDE 5 MG TABLET PO SCH (22:15)
[2018-03-14] MEDS: METRONIDAZOLE 500 MG TABLET PO SCH ×2 (06:06→15:37)
[2018-03-14] MEDS: LANSOPRAZOLE 15 MG TAB.RAP.DR PO SCH (06:06)
[2018-03-14] MEDS: HYDROCODONE/ACETAMINOPHEN 10-325 MG TABLET PO PRN ×2 (06:06→22:34)
[2018-03-14] MEDS: IPRATROPIUM/ALBUTEROL 0.5-2.5 MG/3 ML AMPUL NEB SCH ×2 (08:05→16:09)
[2018-03-14] MEDS: PREGABALIN 75 MG CAPSULE PO SCH (08:29)
[2018-03-14] MEDS: DOCUSATE SODIUM 100 MG CAPSULE PO SCH ×2 (09:26→18:49)
[2018-03-14] MEDS: ALLOPURINOL 300 MG TABLET PO SCH (09:27)
[2018-03-14] MEDS: APIXABAN 5 MG TABLET PO SCH ×2 (09:27→22:32)
[2018-03-14] MEDS: MAGNESIUM OXIDE 400 MG TABLET PO SCH ×2 (09:27→18:49)
[2018-03-14] MEDS: BUMETANIDE 1 MG TABLET PO SCH ×2 (09:28→18:49)
[2018-03-14] MEDS: RANOLAZINE 500 MG TAB.SR.12H PO SCH ×2 (09:28→22:34)
[2018-03-14] MEDS: LACTOBACILLUS ACIDOPHILUS 250 MG TAB PO SCH ×2 (09:30→18:49)
[2018-03-14] MEDS: AMIODARONE HCL 200 MG TABLET PO SCH (09:30)
[2018-03-14] MEDS: BUDESONIDE/FORMOTEROL 160-4.5 MCG 60 PUFF/6 GM MDI IH SCH ×2 (09:31→22:30)
[2018-03-14] MEDS: ASPIRIN 81 MG TABLET, ENT COATED PO SCH (09:31)
[2018-03-14] MEDS: MULTIVITAMIN TABLET PO SCH (09:31)
[2018-03-14] MEDS: CHOLECALCIFEROL (D3) 400 UNIT TABLET PO SCH (09:31)
[2018-03-14] MEDS: SILVER SULFADIAZINE 1% CREAM 400 GM TP SCH ×2 (09:32→22:30)
[2018-03-14 09:44] LABS: ABSOLUTE EOSINOPHILS # (AUTO) 0.1 10^3/uL (0.0-0.6); ABSOLUTE LYMPHOCYTES (AUTO) 1.2 10^3/uL (0.5-4.7); ABSOLUTE MONOCYTES (AUTO) 1.2 10^3/uL (0.1-1.4); BASOPHILS % (AUTO) 0.4 % (0-2); EOSINOPHILS % (AUTO) 1.9 % (0-6); HEMATOCRIT 30.9 % (37.9-51.0); HEMOGLOBIN 10.1 g/dL (13.5-17.0); LYMPHOCYTES % (AUTO) 15.9 % (13-45); MEAN CORPUSCULAR HEMOGLOBIN 29.6 pg (27.0-33.4); MEAN CORPUSCULAR HGB CONC 32.8 g/dL (32.0-36.0); MEAN CORPUSCULAR VOLUME 90 fl (80-97); MONOCYTES % (AUTO) 15.7 % (3-13); PLATELET COUNT 115 10^3/uL (150-450); RED BLOOD COUNT 3.42 10^6/uL (4.35-5.55); RED CELL DISTRIBUTION WIDTH 17.7 % (11.5-14.0); SEGMENTED NEUTROPHILS % (AUTO) 66.1 % (42-78); TOTAL CELLS COUNTED % (AUTO) 100 %; WHITE BLOOD COUNT 7.6 10^3/uL (4.0-10.5)
[2018-03-14 10:11] LABS: ANION GAP 12 (5-19); BLOOD UREA NITROGEN 53 mg/dL (7-20); CALCIUM 8.6 mg/dL (8.4-10.2); CARBON DIOXIDE 32 mmol/L (22-30); CHLORIDE 101 mmol/L (98-107); GLUCOSE 122 mg/dL (75-110); POTASSIUM 3.6 mmol/L (3.6-5.0); SODIUM 144.9 mmol/L (137-145)
[2018-03-14] MEDS: TIOTROPIUM BROMIDE DPI 5 CAP/KIT (18 MCG/CAP) IH SCH (10:16)
[2018-03-14] MEDS: METOLAZONE 2.5 MG TABLET PO SCH (12:44)
--- NOTE | 2018-03-14 14:58 | PDOC PROGRESS REPORT ---
Subjective Progress Note for:: 03/14/18 Subjective:: 77 yr old male with Systolic CHF EF 30-35%, AICD CKD stage IV PVD Insulin dependent Diabetes CAD BPH Gout Oxygen dependent COPd A fib on anticoagulation Chronic pain, opiate dependent L BKA He presented to the hospital on 02/28/18 complaining of fatigue and involuntary twitching suggestive of myoclonus. EMS discovered sats of 50%- brought in on BiPAP, found to have fever and UTI. Urine and blood cultures positive for Proteus. He developed severe diarrhea on 03/05/18. Stool was positive for C diff and he was started on Metronidazole. I doubt this is an actual C diff infection since he was on 4 different laxatives on the day it was checked. No further diarrhea immediately after laxatives were stopped. Respiratory status is at baseline- uses 3L [place] O2 at home. He is getting IV antibiotics through a peripheral IV line and since he cannot get a PICC line due to CKD. The patient refused to get a R IJ PICC line by Dr. David Morel. Last day of IV Invanz is 03/16/18. Reports mild diarrhea Reason For Visit: ACUTE CHRONIC RESPIRATORY FAILURE Physical Exam Vital Signs: Temp Pulse Resp BP Pulse Ox 97.9 F 79 20 107/61 100 03/14/18 11:55 03/14/18 11:55 03/14/18 11:55 03/14/18 11:55 03/14/18 11:55 Intake & Output 03/13/18 03/14/18 03/15/18 06:59 06:59 06:59 Intake Total 20147 Balance 2014 1677 Weight 102.3 kg 102.4 kg General appearance: PRESENT: no acute distress Head exam: PRESENT: normocephalic Respiratory exam: PRESENT: symmetrical, unlabored Cardiovascular exam: PRESENT: RRR GI/Abdominal exam: PRESENT: normal bowel sounds, soft Rectal exam: PRESENT: deferred Gentrourinary exam: ABSENT: indwelling catheter Neurological exam: PRESENT: alert, awake, oriented to person, oriented to place , oriented to time, oriented to situation Results Laboratory Results: 03/14/18 08:44 03/14/18 08:44 03/14/18 03/14/18 08:44 08:44 WBC 7.6 RBC 3.42 L Hgb 10.1 L Hct 30.9 L MCV 90 MCH 29.6 MCHC 32.8 RDW 17.7 H Plt Count 115 L Seg Neutrophils % 66.1 Lymphocytes % 15.9 Monocytes % 15.7 H Eosinophils % 1.9 Basophils % 0.4 Absolute Neutrophils 5.0 Absolute Lymphocytes 1.2 Absolute Monocytes 1.2 Absolute Eosinophils 0.1 Absolute Basophils 0.0 Sodium 144.9 Potassium 3.6 Chloride 101 Carbon Dioxide 32 H Anion Gap 12 BUN 53 H Creatinine 2.70 H Est GFR ( Amer) 28 L Est GFR (Non-Af Amer) 23 L Glucose 122 H Calcium 8.6 03/01/18 03/01/18 03/02/18 04:13 04:13 04:05 Creatine Kinase 24 L CK-MB (CK-2) 0.92 Troponin I 0.025 NT-Pro-B Natriuret Pep 86803 H 03/04/18 03/05/18 03/07/18 11:30 06:31 08:37 Creatine Kinase CK-MB (CK-2) Troponin I NT-Pro-B Natriuret Pep 6020 H 5440 H 3860 H 03/09/18 09:13 Creatine Kinase CK-MB (CK-2) Troponin I NT-Pro-B Natriuret Pep 4620 H Impressions: Chest X-Ray 02/27/18 19:09 IMPRESSION: CARDIAC ENLARGEMENT. VASCULAR CONGESTION. ATELECTASIS IN THE LEFT LUNG BASE. POSSIBLE LEFT PLEURAL EFFUSION. KUB X-Ray 02/28/18 00:00 IMPRESSION: DISTENDED STOMACH. PROMINENT STOOL IN THE COLON, POSSIBLE CONSTIPATION. Assessment & Plan - Diagnosis (1) Proteus septicemia Is this a current diagnosis for this admission?: Yes Plan: Last day of Invanz is 03/16/18 Repeat blood cultures were negative. (2) Myoclonus Is this a current diagnosis for this admission?: Yes Plan: Continue Keppra 250 mg PO QHS (3) Acute respiratory failure with hypoxia Is this a current diagnosis for this admission?: Yes Plan: Due to sepsis and pleural effusion- resolved (4) History of left below knee amputation Is this a current diagnosis for this admission?: Yes Plan: He has a prosthetic leg (5) Sepsis Qualifiers: Sepsis type: sepsis due to unspecified organism Qualified Code(s): A41.9 - Sepsis, unspecified organism Is this a current diagnosis for this admission?: Yes Plan: Due to UTI- proteus. Resolved (6) Acute and chronic respiratory failure Qualifiers: Respiratory failure complication: hypoxia and hypercapnia Qualified Code(s) : J96.21 - Acute and chronic respiratory failure with hypoxia; J96.22 - Acute and chronic respiratory failure with hypercapnia; J96.22 - Acute and chronic respiratory failure with hypercapnia; J96.22 - Acute and chronic respiratory failure with hypercapnia Is this a current diagnosis for this admission?: Yes Plan: Resolved- back to baseline (7) Anemia in chronic kidney disease Qualifiers: Chronic kidney disease stage: stage 4 (severe) Qualified Code(s): N18.4 - Chronic kidney disease, stage 4 (severe); D63.1 - Anemia in chronic kidney disease; D63.1 - Anemia in chronic kidney disease Is this a current diagnosis for this admission?: Yes Plan: stable (8) BPH (benign prostatic hyperplasia) Is this a current diagnosis for this admission?: Yes Plan: Continue outpatient meds. Sav removed (9) COPD (chronic obstructive pulmonary disease) Qualifiers: COPD type: emphysema Emphysema type: unspecified Qualified Code(s): J43.9 - Emphysema, unspecified Is this a current diagnosis for this admission?: Yes Plan: Stable continue inhalers (10) Chronic anticoagulation Is this a current diagnosis for this admission?: Yes Plan: On Eliquis. (11) Chronic atrial fibrillation Is this a current diagnosis for this admission?: Yes Plan: On Amiodarone and Eliquis (12) Constipation Qualifiers: Constipation type: chronic idiopathic constipation Qualified Code(s): K59.04 - Chronic idiopathic constipation Is this a current diagnosis for this admission?: Yes Plan: Resolved (13) Coronary artery disease Qualifiers: Coronary Disease-Associated Artery/Lesion type: unspecified vessel or lesion type [place] vs. transplanted heart: [place] heart Associated angina: angina presence unspecified Qualified Code(s): I25.10 - Atherosclerotic heart disease of [place] coronary artery without angina pectoris Is this a current diagnosis for this admission?: Yes Plan: Continue outpatient meds (14) DM type 2 (diabetes mellitus, type 2) Qualifiers: Diabetes mellitus longterm insulin use: unspecified longterm insulin use status Diabetes mellitus complication status: with unspecified complications Qualified Code(s): E11.8 - Type 2 diabetes mellitus with unspecified complications Is this a current diagnosis for this admission?: Yes Plan: Continue outpatient meds (15) Full code status Is this a current diagnosis for this admission?: Yes (16) History of implantable cardioverter-defibrillator (ICD) placement Is this a current diagnosis for this admission?: Yes (17) Hyperlipidemia Qualifiers: Hyperlipidemia type: unspecified Qualified Code(s): E78.5 - Hyperlipidemia , unspecified Is this a current diagnosis for this admission?: Yes Plan: Continue outpatient meds (18) Hypertension Qualifiers: Hypertension type: essential hypertension Qualified Code(s): I10 - Essential (primary) hypertension Is this a current diagnosis for this admission?: Yes Plan: Continue outpatient meds (19) PVD (peripheral vascular disease) Is this a current diagnosis for this admission?: Yes Plan: Continue outpatient meds (20) C. difficile diarrhea Is this a current diagnosis for this admission?: Yes Plan: On Flagyl and Probiotic. Diarrhea suspected to be secondary to laxatives. No further diarrhea (21) Chronic diastolic heart failure Is this a current diagnosis for this admission?: Yes Plan: Continue current regimen Metolazone added - Time Time Spent with patient: 25-34 minutes
[2018-03-14] MEDS: INSULIN LISPRO 100 UNIT/ML 3 ML VIAL SUBCUT PRN ×2 (18:50→21:25)
[2018-03-14] MEDS: ERTAPENEM SODIUM 0.5 GM in NORMAL SALINE 50 ML IV SCH (18:53)
[2018-03-14] MEDS: FINASTERIDE 5 MG TABLET PO SCH (22:32)
[2018-03-14] MEDS: LEVETIRACETAM 500 MG TABLET PO SCH (22:32)
[2018-03-14] MEDS: ATORVASTATIN CALCIUM 80 MG TABLET PO SCH (22:32)
[2018-03-14] MEDS: ISOSORBIDE MONONITRATE 30 MG TAB.ER.24H PO SCH (22:33)
[2018-03-14] MEDS: TAMSULOSIN HCL 0.4 MG CAP.SR.24H PO SCH (22:34)
[2018-03-14] MEDS: INSULIN GLARGINE,HUM.REC.ANLOG 300 UNIT/3 ML INSULN.PEN SUBCUT SCH (22:34)
[2018-03-14] MEDS: METOPROLOL SUCCINATE 50 MG TAB.SR.24H PO SCH (22:34)
[2018-03-14] MEDS: MONTELUKAST SODIUM 10 MG TABLET PO SCH (22:34)
[2018-03-15] MEDS: IPRATROPIUM/ALBUTEROL 0.5-2.5 MG/3 ML AMPUL NEB SCH ×3 (00:02→16:12)
[2018-03-15] MEDS: LANSOPRAZOLE 15 MG TAB.RAP.DR PO SCH (07:33)
[2018-03-15] MEDS: PREGABALIN 75 MG CAPSULE PO SCH (08:35)
[2018-03-15] MEDS: INSULIN LISPRO 100 UNIT/ML 3 ML VIAL SUBCUT PRN ×3 (08:35→18:19)
[2018-03-15] MEDS: HYDROCODONE/ACETAMINOPHEN 10-325 MG TABLET PO PRN ×2 (08:48→17:14)
[2018-03-15] MEDS: RANOLAZINE 500 MG TAB.SR.12H PO SCH ×2 (11:10→23:11)
[2018-03-15] MEDS: MAGNESIUM OXIDE 400 MG TABLET PO SCH (11:11)
[2018-03-15] MEDS: ALLOPURINOL 300 MG TABLET PO SCH (11:11)
[2018-03-15] MEDS: APIXABAN 5 MG TABLET PO SCH ×2 (11:11→23:11)
[2018-03-15] MEDS: MULTIVITAMIN TABLET PO SCH (11:11)
[2018-03-15] MEDS: AMIODARONE HCL 200 MG TABLET PO SCH (11:12)
[2018-03-15] MEDS: DOCUSATE SODIUM 100 MG CAPSULE PO SCH ×2 (11:12→17:15)
[2018-03-15] MEDS: BUMETANIDE 1 MG TABLET PO SCH ×2 (11:12→17:14)
[2018-03-15] MEDS: ASPIRIN 81 MG TABLET, ENT COATED PO SCH (11:13)
[2018-03-15] MEDS: LACTOBACILLUS ACIDOPHILUS 250 MG TAB PO SCH ×2 (11:13→17:15)
[2018-03-15] MEDS: TIOTROPIUM BROMIDE DPI 5 CAP/KIT (18 MCG/CAP) IH SCH (11:14)
[2018-03-15] MEDS: BUDESONIDE/FORMOTEROL 160-4.5 MCG 60 PUFF/6 GM MDI IH SCH ×2 (11:14→23:12)
[2018-03-15] MEDS: SILVER SULFADIAZINE 1% CREAM 400 GM TP SCH ×2 (11:14→23:12)
[2018-03-15] MEDS: CHOLECALCIFEROL (D3) 400 UNIT TABLET PO SCH (13:54)
--- NOTE | 2018-03-15 14:32 | PDOC PROGRESS REPORT ---
Subjective Progress Note for:: 03/15/18 Subjective:: 77 yr old male with Systolic CHF EF 30-35%, AICD CKD stage IV PVD Insulin dependent Diabetes CAD BPH Gout Oxygen dependent COPd A fib on anticoagulation Chronic pain, opiate dependent L BKA He presented to the hospital on 02/28/18 complaining of fatigue and involuntary twitching suggestive of myoclonus. EMS discovered sats of 50%- brought in on BiPAP, found to have fever and UTI. Urine and blood cultures positive for Proteus. He developed severe diarrhea on 03/05/18. Stool was positive for C diff and he was started on Metronidazole. I doubt this is an actual C diff infection since he was on 4 different laxatives on the day it was checked. No further diarrhea immediately after laxatives were stopped. Respiratory status is at baseline- uses 3L NC O2 at home. He is getting IV antibiotics through a peripheral IV line and since he cannot get a PICC line due to CKD. The patient refused to get a R IJ PICC line by Dr. David Morel. Last day of IV Invanz is 03/16/18. No complaints at present. Feels well. Reason For Visit: ACUTE CHRONIC RESPIRATORY FAILURE Physical Exam Vital Signs: Temp Pulse Resp BP Pulse Ox 98.2 F 39 L 16 112/59 L 96 03/15/18 08:20 03/15/18 08:20 03/15/18 08:20 03/15/18 08:20 03/15/18 08:20 Intake & Output 03/14/18 03/15/18 03/16/18 06:59 06:59 06:59 Intake Total 1677 581 Output Total 425 Balance 1677 156 Weight 102.4 kg 102.4 kg General appearance: PRESENT: no acute distress Head exam: PRESENT: normocephalic Eye exam: ABSENT: scleral icterus Ear exam: PRESENT: normal external ear exam Mouth exam: PRESENT: moist Respiratory exam: PRESENT: symmetrical, unlabored Cardiovascular exam: PRESENT: RRR GI/Abdominal exam: PRESENT: soft. ABSENT: tenderness Rectal exam: PRESENT: deferred Gentrourinary exam: ABSENT: indwelling catheter Extremities exam: PRESENT: pedal edema Neurological exam: PRESENT: alert, awake, oriented to person, oriented to place , oriented to time, oriented to situation Psychiatric exam: PRESENT: appropriate affect Results Laboratory Results: 03/14/18 08:44 03/14/18 08:44 03/01/18 03/01/18 03/02/18 04:13 04:13 04:05 Creatine Kinase 24 L CK-MB (CK-2) 0.92 Troponin I 0.025 NT-Pro-B Natriuret Pep 10953 H 03/04/18 03/05/18 03/07/18 11:30 06:31 08:37 Creatine Kinase CK-MB (CK-2) Troponin I NT-Pro-B Natriuret Pep 6020 H 5440 H 3860 H 03/09/18 09:13 Creatine Kinase CK-MB (CK-2) Troponin I NT-Pro-B Natriuret Pep 4620 H Impressions: Chest X-Ray 02/27/18 19:09 IMPRESSION: CARDIAC ENLARGEMENT. VASCULAR CONGESTION. ATELECTASIS IN THE LEFT LUNG BASE. POSSIBLE LEFT PLEURAL EFFUSION. KUB X-Ray 02/28/18 00:00 IMPRESSION: DISTENDED STOMACH. PROMINENT STOOL IN THE COLON, POSSIBLE CONSTIPATION. Assessment & Plan - Diagnosis (1) Proteus septicemia Is this a current diagnosis for this admission?: Yes Plan: Last day of Invanz is 03/16/18 Repeat blood cultures were negative. (2) Myoclonus Is this a current diagnosis for this admission?: Yes Plan: Continue Keppra 250 mg PO QHS (3) Acute respiratory failure with hypoxia Is this a current diagnosis for this admission?: Yes Plan: Due to sepsis and pleural effusion- resolved (4) History of left below knee amputation Is this a current diagnosis for this admission?: Yes Plan: He has a prosthetic leg (5) Sepsis Qualifiers: Sepsis type: sepsis due to unspecified organism Qualified Code(s): A41.9 - Sepsis, unspecified organism Is this a current diagnosis for this admission?: Yes Plan: Due to UTI- proteus. Resolved (6) Acute and chronic respiratory failure Qualifiers: Respiratory failure complication: hypoxia and hypercapnia Qualified Code(s) : J96.21 - Acute and chronic respiratory failure with hypoxia; J96.22 - Acute and chronic respiratory failure with hypercapnia; J96.22 - Acute and chronic respiratory failure with hypercapnia; J96.22 - Acute and chronic respiratory failure with hypercapnia Is this a current diagnosis for this admission?: Yes Plan: Resolved- back to baseline (7) Anemia in chronic kidney disease Qualifiers: Chronic kidney disease stage: stage 4 (severe) Qualified Code(s): N18.4 - Chronic kidney disease, stage 4 (severe); D63.1 - Anemia in chronic kidney disease; D63.1 - Anemia in chronic kidney disease Is this a current diagnosis for this admission?: Yes Plan: stable (8) BPH (benign prostatic hyperplasia) Is this a current diagnosis for this admission?: Yes Plan: Continue outpatient meds. (9) COPD (chronic obstructive pulmonary disease) Qualifiers: COPD type: emphysema Emphysema type: unspecified Qualified Code(s): J43.9 - Emphysema, unspecified Is this a current diagnosis for this admission?: Yes (10) Chronic anticoagulation Is this a current diagnosis for this admission?: Yes Plan: On Eliquis. (11) Chronic atrial fibrillation Is this a current diagnosis for this admission?: Yes Plan: On Amiodarone and Eliquis (12) Constipation Qualifiers: Constipation type: chronic idiopathic constipation Qualified Code(s): K59.04 - Chronic idiopathic constipation Is this a current diagnosis for this admission?: Yes Plan: Resolved (13) Coronary artery disease Qualifiers: Coronary Disease-Associated Artery/Lesion type: unspecified vessel or lesion type [place] vs. 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 Diabetes mellitus complication status: with unspecified complications Qualified Code(s): E11.8 - Type 2 diabetes mellitus with unspecified complications Is this a current diagnosis for this admission?: Yes Plan: Continue outpatient meds (15) Full code status Is this a current diagnosis for this admission?: Yes (16) History of implantable cardioverter-defibrillator (ICD) placement Is this a current diagnosis for this admission?: Yes (17) Hyperlipidemia Qualifiers: Hyperlipidemia type: unspecified Qualified Code(s): E78.5 - Hyperlipidemia , unspecified Is this a current diagnosis for this admission?: Yes Plan: Continue outpatient meds (18) Hypertension Qualifiers: Hypertension type: essential hypertension Qualified Code(s): I10 - Essential (primary) hypertension Is this a current diagnosis for this admission?: Yes Plan: Continue outpatient meds (19) PVD (peripheral vascular disease) Is this a current diagnosis for this admission?: Yes Plan: Continue outpatient meds (20) C. difficile diarrhea Is this a current diagnosis for this admission?: Yes Plan: On Flagyl and Probiotic. Diarrhea suspected to be secondary to laxatives. No further diarrhea (21) Chronic diastolic heart failure Is this a current diagnosis for this admission?: Yes Plan: Continue current regimen Metolazone added - Time Time Spent with patient: 25-34 minutes
[2018-03-15] MEDS: ERTAPENEM SODIUM 0.5 GM in NORMAL SALINE 50 ML IV SCH (17:15)
[2018-03-15] MEDS: MONTELUKAST SODIUM 10 MG TABLET PO SCH (23:10)
[2018-03-15] MEDS: FINASTERIDE 5 MG TABLET PO SCH (23:10)
[2018-03-15] MEDS: ISOSORBIDE MONONITRATE 30 MG TAB.ER.24H PO SCH (23:10)
[2018-03-15] MEDS: ATORVASTATIN CALCIUM 80 MG TABLET PO SCH (23:10)
[2018-03-15] MEDS: TAMSULOSIN HCL 0.4 MG CAP.SR.24H PO SCH (23:11)
[2018-03-15] MEDS: LEVETIRACETAM 500 MG TABLET PO SCH (23:11)
[2018-03-15] MEDS: INSULIN GLARGINE,HUM.REC.ANLOG 300 UNIT/3 ML INSULN.PEN SUBCUT SCH (23:11)
[2018-03-15] MEDS: METOPROLOL SUCCINATE 50 MG TAB.SR.24H PO SCH (23:38)
[2018-03-16] MEDS: IPRATROPIUM/ALBUTEROL 0.5-2.5 MG/3 ML AMPUL NEB SCH ×4 (01:10→23:52)
[2018-03-16] MEDS: HYDROCODONE/ACETAMINOPHEN 10-325 MG TABLET PO PRN ×4 (01:44→22:01)
[2018-03-16] MEDS: LANSOPRAZOLE 15 MG TAB.RAP.DR PO SCH (07:02)
[2018-03-16] MEDS: PREGABALIN 75 MG CAPSULE PO SCH (07:46)
[2018-03-16] MEDS: INSULIN LISPRO 100 UNIT/ML 3 ML VIAL SUBCUT PRN ×4 (08:23→22:03)
[2018-03-16] MEDS: BUDESONIDE/FORMOTEROL 160-4.5 MCG 60 PUFF/6 GM MDI IH SCH ×2 (10:40→22:00)
[2018-03-16] MEDS: SILVER SULFADIAZINE 1% CREAM 400 GM TP SCH ×2 (10:42→21:59)
[2018-03-16] MEDS: APIXABAN 5 MG TABLET PO SCH ×2 (10:43→22:01)
[2018-03-16] MEDS: MULTIVITAMIN TABLET PO SCH (10:44)
[2018-03-16] MEDS: ASPIRIN 81 MG TABLET, ENT COATED PO SCH (10:44)
[2018-03-16] MEDS: AMIODARONE HCL 200 MG TABLET PO SCH (10:44)
[2018-03-16] MEDS: ALLOPURINOL 300 MG TABLET PO SCH (10:45)
[2018-03-16] MEDS: BUMETANIDE 1 MG TABLET PO SCH ×2 (10:46→17:31)
[2018-03-16] MEDS: DOCUSATE SODIUM 100 MG CAPSULE PO SCH ×2 (10:46→17:30)
[2018-03-16] MEDS: LACTOBACILLUS ACIDOPHILUS 250 MG TAB PO SCH ×2 (10:46→17:30)
[2018-03-16] MEDS: RANOLAZINE 500 MG TAB.SR.12H PO SCH ×2 (10:48→22:01)
[2018-03-16] MEDS: CHOLECALCIFEROL (D3) 400 UNIT TABLET PO SCH (10:48)
[2018-03-16] MEDS: TIOTROPIUM BROMIDE DPI 5 CAP/KIT (18 MCG/CAP) IH SCH (10:51)
[2018-03-16] MEDS: METOLAZONE 2.5 MG TABLET PO SCH (11:38)
--- NOTE | 2018-03-16 12:51 | PDOC PROGRESS REPORT ---
Subjective Progress Note for:: 03/16/18 Subjective:: 77 yr old male with Systolic CHF EF 30-35%, AICD CKD stage IV PVD Insulin dependent Diabetes CAD BPH Gout Oxygen dependent COPd A fib on anticoagulation Chronic pain, opiate dependent L BKA He presented to the hospital on 02/28/18 complaining of fatigue and involuntary twitching suggestive of myoclonus. EMS discovered sats of 50%- brought in on BiPAP, found to have fever and UTI. Urine and blood cultures positive for Proteus. He developed severe diarrhea on 03/05/18. Stool was positive for C diff and he was started on Metronidazole. I doubt this is an actual C diff infection since he was on 4 different laxatives on the day it was checked. No further diarrhea immediately after laxatives were stopped. Respiratory status is at baseline- uses 3L NC O2 at home. He is getting IV antibiotics through a peripheral IV line and since he cannot get a PICC line due to CKD. The patient refused to get a R IJ PICC line by Dr. David Morel. Last day of IV Invanz is 03/16/18. The patient is requesting increasing the frequency of [place] from every 6 to every 4 hours as needed. This is how he takes it at home. Denies any nausea or diarrhea. Reason For Visit: ACUTE CHRONIC RESPIRATORY FAILURE Physical Exam Vital Signs: Temp Pulse Resp BP Pulse Ox 98.0 F 40 L 16 105/41 L 99 03/16/18 08:32 03/16/18 08:32 03/16/18 08:32 03/16/18 08:32 03/16/18 08:32 Intake & Output 03/15/18 03/16/18 03/17/18 06:59 06:59 06:59 Intake Total 581 1300 Output Total 425 Balance 156 1300 Weight 102.4 kg 102.4 kg General appearance: PRESENT: no acute distress Head exam: PRESENT: normocephalic Mouth exam: PRESENT: moist Respiratory exam: PRESENT: symmetrical, unlabored Cardiovascular exam: PRESENT: RRR GI/Abdominal exam: PRESENT: soft. ABSENT: tenderness Rectal exam: PRESENT: deferred Gentrourinary exam: ABSENT: indwelling catheter Extremities exam: PRESENT: other - Left below the knee amputation. Neurological exam: PRESENT: alert, awake, oriented to person, oriented to place , oriented to time, oriented to situation Psychiatric exam: PRESENT: appropriate affect Results Laboratory Results: 03/14/18 08:44 03/14/18 08:44 03/01/18 03/01/18 03/02/18 04:13 04:13 04:05 Creatine Kinase 24 L CK-MB (CK-2) 0.92 Troponin I 0.025 NT-Pro-B Natriuret Pep 16237 H 03/04/18 03/05/18 03/07/18 11:30 06:31 08:37 Creatine Kinase CK-MB (CK-2) Troponin I NT-Pro-B Natriuret Pep 6020 H 5440 H 3860 H 03/09/18 09:13 Creatine Kinase CK-MB (CK-2) Troponin I NT-Pro-B Natriuret Pep 4620 H Impressions: Chest X-Ray 02/27/18 19:09 IMPRESSION: CARDIAC ENLARGEMENT. VASCULAR CONGESTION. ATELECTASIS IN THE LEFT LUNG BASE. POSSIBLE LEFT PLEURAL EFFUSION. KUB X-Ray 02/28/18 00:00 IMPRESSION: DISTENDED STOMACH. PROMINENT STOOL IN THE COLON, POSSIBLE CONSTIPATION. Assessment & Plan - Diagnosis (1) Proteus septicemia Is this a current diagnosis for this admission?: Yes Plan: Last day of Invanz is 03/16/18 Repeat blood cultures were negative. (2) Myoclonus Is this a current diagnosis for this admission?: Yes Plan: Continue Keppra 250 mg PO QHS (3) Acute respiratory failure with hypoxia Is this a current diagnosis for this admission?: Yes Plan: Due to sepsis and pleural effusion- resolved (4) History of left below knee amputation Is this a current diagnosis for this admission?: Yes Plan: He has a prosthetic leg (5) Sepsis Qualifiers: Sepsis type: sepsis due to unspecified organism Qualified Code(s): A41.9 - Sepsis, unspecified organism Is this a current diagnosis for this admission?: Yes (6) Acute and chronic respiratory failure Qualifiers: Respiratory failure complication: hypoxia and hypercapnia Qualified Code(s) : J96.21 - Acute and chronic respiratory failure with hypoxia; J96.22 - Acute and chronic respiratory failure with hypercapnia; J96.22 - Acute and chronic respiratory failure with hypercapnia; J96.22 - Acute and chronic respiratory failure with hypercapnia Is this a current diagnosis for this admission?: Yes Plan: Resolved- back to baseline (7) Anemia in chronic kidney disease Qualifiers: Chronic kidney disease stage: stage 4 (severe) Qualified Code(s): N18.4 - Chronic kidney disease, stage 4 (severe); D63.1 - Anemia in chronic kidney disease; D63.1 - Anemia in chronic kidney disease Is this a current diagnosis for this admission?: Yes Plan: stable (8) BPH (benign prostatic hyperplasia) Is this a current diagnosis for this admission?: Yes Plan: Continue outpatient meds. (9) COPD (chronic obstructive pulmonary disease) Qualifiers: COPD type: emphysema Emphysema type: unspecified Qualified Code(s): J43.9 - Emphysema, unspecified Is this a current diagnosis for this admission?: Yes Plan: Stable continue inhalers (10) Chronic anticoagulation Is this a current diagnosis for this admission?: Yes Plan: On Eliquis. (11) Chronic atrial fibrillation Is this a current diagnosis for this admission?: Yes Plan: On Amiodarone and Eliquis (12) Constipation Qualifiers: Constipation type: chronic idiopathic constipation Qualified Code(s): K59.04 - Chronic idiopathic constipation Is this a current diagnosis for this admission?: Yes Plan: Resolved (13) Coronary artery disease Qualifiers: Coronary Disease-Associated Artery/Lesion type: unspecified vessel or lesion type [place] vs. 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 Diabetes mellitus complication status: with unspecified complications Qualified Code(s): E11.8 - Type 2 diabetes mellitus with unspecified complications Is this a current diagnosis for this admission?: Yes Plan: Continue outpatient meds (15) Full code status Is this a current diagnosis for this admission?: Yes (16) History of implantable cardioverter-defibrillator (ICD) placement Is this a current diagnosis for this admission?: Yes (17) Hyperlipidemia Qualifiers: Hyperlipidemia type: unspecified Qualified Code(s): E78.5 - Hyperlipidemia , unspecified Is this a current diagnosis for this admission?: Yes Plan: Continue outpatient meds (18) Hypertension Qualifiers: Hypertension type: essential hypertension Qualified Code(s): I10 - Essential (primary) hypertension Is this a current diagnosis for this admission?: Yes Plan: Continue outpatient meds (19) PVD (peripheral vascular disease) Is this a current diagnosis for this admission?: Yes Plan: Continue outpatient meds (20) C. difficile diarrhea Is this a current diagnosis for this admission?: Yes Plan: On Flagyl and Probiotic. Diarrhea suspected to be secondary to laxatives. No further diarrhea (21) Chronic diastolic heart failure Is this a current diagnosis for this admission?: Yes Plan: Continue current regimen Metolazone added - Time Time Spent with patient: 25-34 minutes
[2018-03-16] MEDS: ERTAPENEM SODIUM 0.5 GM in NORMAL SALINE 50 ML IV SCH (17:32)
[2018-03-16] MEDS: TAMSULOSIN HCL 0.4 MG CAP.SR.24H PO SCH (21:59)
[2018-03-16] MEDS: METOPROLOL SUCCINATE 50 MG TAB.SR.24H PO SCH (21:59)
[2018-03-16] MEDS: ATORVASTATIN CALCIUM 80 MG TABLET PO SCH (22:00)
[2018-03-16] MEDS: MONTELUKAST SODIUM 10 MG TABLET PO SCH (22:00)
[2018-03-16] MEDS: ISOSORBIDE MONONITRATE 30 MG TAB.ER.24H PO SCH (22:00)
[2018-03-16] MEDS: FINASTERIDE 5 MG TABLET PO SCH (22:01)
[2018-03-16] MEDS: INSULIN GLARGINE,HUM.REC.ANLOG 300 UNIT/3 ML INSULN.PEN SUBCUT SCH (22:01)
[2018-03-16] MEDS: LEVETIRACETAM 500 MG TABLET PO SCH (22:33)
[2018-03-17] MEDS: ZOLPIDEM TARTRATE 5 MG TABLET PO PRN (02:23)
[2018-03-17] MEDS: HYDROCODONE/ACETAMINOPHEN 10-325 MG TABLET PO PRN (06:23)
[2018-03-17] MEDS: LANSOPRAZOLE 15 MG TAB.RAP.DR PO SCH (06:24)
[2018-03-17] MEDS: INSULIN LISPRO 100 UNIT/ML 3 ML VIAL SUBCUT PRN (07:19)
[2018-03-17] MEDS: PREGABALIN 75 MG CAPSULE PO SCH (07:19)
[2018-03-17] MEDS: IPRATROPIUM/ALBUTEROL 0.5-2.5 MG/3 ML AMPUL NEB SCH (07:51)
[2018-03-17] MEDS ORDERED: PHENYLEPHRINE HCL INJ/PF 10 MG/1 ML SDV ONE (09:16)
[2018-03-17] MEDS ORDERED: CALCIUM GLUCONATE 1000 MG/10 ML INJ IV ONE ×2 (09:28→11:51)
[2018-03-17 09:37] LABS: PARTIAL THROMBOPLASTIN TIME 35.5 SEC (23.5-35.8); PROTHROMBIN TIME 17.9 SEC (11.4-15.4)
[2018-03-17 09:39] LABS: HEMATOCRIT 33.2 % (37.9-51.0); HEMOGLOBIN 10.7 g/dL (13.5-17.0); MEAN CORPUSCULAR HEMOGLOBIN 29.4 pg (27.0-33.4); MEAN CORPUSCULAR HGB CONC 32.1 g/dL (32.0-36.0); MEAN CORPUSCULAR VOLUME 92 fl (80-97); PLATELET COUNT 119 10^3/uL (150-450); RED BLOOD COUNT 3.62 10^6/uL (4.35-5.55); RED CELL DISTRIBUTION WIDTH 17.2 % (11.5-14.0)
[2018-03-17 09:55] LABS: ARTERIAL BLOOD BASE EXCESS 2.4 mmol/L; ARTERIAL BLOOD FIO2 100%; ARTERIAL BLOOD H2CO3 2.02 mmol/L (1.05-1.35); ARTERIAL BLOOD HCO3 30.5 mmol/L (20-26); ARTERIAL BLOOD O2 SATURATION 93.2 % (94-98); ARTERIAL BLOOD PH 7.28 (7.35-7.45); ARTERIAL BLOOD PO2 76.7 mmHg (80-100); ARTERIAL BLOOD TOTAL CO2 32.6 mmol/L (23-27)
[2018-03-17] MEDS ORDERED: PROPOFOL 1,000 MG/100 ML INFUS..BTL IV PRN (10:24)
[2018-03-17 10:36] LABS: FREE T3 3.31 pg/mL (2.77-5.27); FREE T4 (FREE THYROXINE) 1.39 ng/dL (0.78-2.19)
--- NOTE | 2018-03-17 10:37 | Operative Report ---
Operative Report DATE OF SURGERY: 03/17/18 PREOPERATIVE DIAGNOSIS: Status post cardiac arrest, critical need for central venous access POSTOPERATIVE DIAGNOSIS: Status post cardiac arrest, critical need for central venous access OPERATION: Right internal jugular ultrasound-guided triple-lumen central venous catheter placement SURGEON: BEE ANDRADE ANESTHESIA: Local TISSUE REMOVED OR ALTERED: None COMPLICATIONS: None ESTIMATED BLOOD LOSS: Minimal INTRAOPERATIVE FINDINGS: None PROCEDURE: Informed consent was obtained. Procedure was done at the patient's bedside. Patient's right neck was prepped and draped in usual sterile fashion. Ultrasound demonstrated a distended right internal jugular vein. Local anesthetic was administered. The right internal jugular vein was cannulated without difficulty under ultrasound guidance. Triple-lumen central venous catheter was placed via the Seldinger technique. It withdrew blood and flushed easily. It was sutured in place and dressings were applied. Patient tolerated procedure well with no apparent complications. Stat portable chest x-ray was ordered.
--- NOTE | 2018-03-17 10:44 | PDOC CONSULTATION ---
Consultation Consult Date: 03/17/18 Attending physician:: INÉS LEWIS Consult reason:: s/p code History of Present Illness Admission Date/PCP: 02/27/18 22:44 History of Present Illness: TRUONG PINK is a 77 year old male,well known to [facility] for COPD s/p code w/ CP arrest advanced CAD and PVD. Past Medical History Cardiac Medical History: Reports: Atrial Fibrillation, Congestive Heart Failure , Coronary Artery Disease, Myocardial Infarction - x6, Hyperlipidema, Hypertension, Peripheral Vascular Disease, Pulmonary Embolism Pulmonary Medical History: Reports: Asthma, Bronchitis, Chronic Obstructive Pulmonary Disease (COPD), Sleep Apnea - without c-pap Denies: Pneumonia, Respiratory Failure, Tuberculosis Neurological Medical History: Denies: Seizures Endocrine Medical History: Reports: Diabetes Mellitus Type 2 Denies: Hyperthyroidism, Hypothyroidism Renal/ Medical History: Denies: End Stage Renal Disease Malignancy Medical History: Denies: Leukemia, Lung Cancer GI Medical History: Reports: Gastroesophageal Reflux Disease Denies: Hepatitis, Hiatal Hernia Musculoskeltal Medical History: Reports: Arthritis Denies: Fibromyalgia Psychiatric Medical History: Denies: Dementia, Depression Hematology: Denies: Anemia, Hemophilia, Sickle Cell Disease Infectious Medical History: Denies: HIV Past Surgical History Past Surgical History: Reports: Cardiac Catheterization, Coronary Artery Bypass Graft - quadruple, Coronary Stent, Internal Defibrillator, Orthopedic Surgery - Left BKA, Pacemaker Denies: Appendectomy, Cholecystectomy, Gastric Bypass Surgery, Herniorrhaphy , Tonsillectomy Social History Information Source: [facility] Records Lives with: Family Smoking Status: Unknown if Ever Smoked Passive smoke exposure as: Both Frequency of Alcohol Use: None Hx Recreational Drug Use: No Drugs: None Hx Prescription Drug Abuse: No - Advance Directive Resuscitation Status: Full Code Family History Family History: CAD, COPD Parental Family History Reviewed: No Children Family History Reviewed: No Sibling(s) Family History Reviewed.: No Medication/Allergy Home Medications: Albuterol Sulfate [Ventolin HFA MDI 18 GM] 1 puff IH Q6HP PRN 11/13/17 Allopurinol [Zyloprim 300 mg Tablet] 150 mg PO DAILY 11/13/17 Aspirin [Ecotrin 81 mg EC Tablet] 81 mg PO DAILY 11/13/17 Atorvastatin Calcium [Lipitor 40 mg Tablet] 80 mg PO QHS 11/13/17 Budesonide/Formoterol Fumarate [Symbicort 160-4.5 Mcg Inhaler] 2 puff IH Q12 07/21 Cholecalciferol (Vitamin D3) [Vitamin D3 400 Unit Tablet] 400 unit PO DAILY 07/21 Finasteride [Proscar 5 mg Tablet] 5 mg PO QHS 11/13/17 Hydrocodone/Acetaminophen [Hydrocodone-Acetamin 10-325 mg] 1 tab PO Q6HP PRN 07/21 Isosorbide Mononitrate [Imdur 30 mg Tablet.er] 90 mg PO DAILY 11/13/17 Magnesium Oxide [Mag-Ox 400 mg Tablet] 400 mg PO BID 11/13/17 Montelukast Sodium [Singulair 10 mg Tablet] 10 mg PO QHS 11/13/17 Multivitamin [Tab-A-Maris (Multiple Vitamin) Tablet] 1 tab PO DAILY 11/13/17 Polyethylene Glycol 3350 [Miralax Powder 17 gm/Packet] 17 gm PO QPMP PRN Pregabalin [Lyrica] 150 mg PO QAM 11/13/17 Ranolazine [Ranexa 500 mg Tab.sr] 1,000 mg PO Q12 11/13/17 Sennosides/Docusate 8.6-50 mg [Senna Plus Tablet] 1 tab PO BID 11/13/17 Tamsulosin HCl [Flomax 0.4 mg Cap.sr] 0.8 mg PO QHS 11/13/17 Tiotropium Silver Plume [Spiriva Handihaler 5 Cap/Kit (18 Mcg/Cap)] 1 puff IH DAILY 11/13/17 Zolpidem Tartrate [Ambien 5 mg Tablet] 5 mg PO HSP PRN 11/13/17 Bumetanide [Bumex 2 mg Tablet] 2 mg PO BID #60 11/30/17 Amiodarone HCl [Cordarone 200 mg Tablet] 200 mg PO DAILY 02/27/18 Apixaban [Eliquis 5 mg Tablet] 5 mg PO BID 02/27/18 Insulin Glargine,Hum.rec.anlog [Lantus Solostar] 16 unit SQ QHS 02/27/18 Levetiracetam [Keppra] 250 mg PO QHS 02/27/18 Metoprolol Succinate [Toprol Xl 25 mg Tab.sr] 50 mg PO QHS 02/27/18 Pantoprazole Sodium [Protonix] 40 mg PO DAILY 02/27/18 Potassium Chloride [Klor-Con 10 Meq Tablet.sa] 20 meq PO Q12 02/27/18 Nitroglycerin 0.4 mg SL PRN PRN 02/28/18 Allergies/Adverse Reactions: Penicillins Allergy (Unknown, Verified 12/27/17 10:23) Kvaetbl-[id number]-Pjw Reductase Inhibitor Allergy (Verified 12/27/17 10:23) vancomycin [Vancomycin] Adverse Reaction (Verified 12/27/17 10:23) Review of Systems ROS unobtainable: Due to endotracheal tube Physical Exam Vital Signs: Temp Pulse Resp BP Pulse Ox 97.9 F 80 16 131/62 H 100 03/16/18 21:59 03/17/18 02:00 03/17/18 00:00 03/16/18 21:59 03/16/18 21:59 Intake & Output 03/16/18 03/17/18 03/18/18 06:59 06:59 06:59 Intake Total 1300 1505 Balance 1300 1505 Weight 102.4 kg 102.3 kg General appearance: PRESENT: no acute distress, disheveled, obese. ABSENT: cooperative Head exam: PRESENT: atraumatic, normocephalic Eye exam: PRESENT: conjunctiva pale. ABSENT: EOMI, nystagmus, periorbital swelling, PERRLA, scleral icterus Mouth exam: PRESENT: dry mucosa, neck supple, tongue midline, other - ET tube Neck exam: ABSENT: carotid bruit, JVD, lymphadenopathy, thyromegaly, tracheal deviation, tracheostomy Respiratory exam: PRESENT: decreased breath sounds, prolonged expiratory phas, rales, rhonchi, unlabored. ABSENT: retraction, stridor Cardiovascular exam: PRESENT: irregular rhythm Pulses: PRESENT: normal radial pulses - [id number] GI/Abdominal exam: PRESENT: soft Gentrourinary exam: PRESENT: indwelling catheter Extremities exam: ABSENT: clubbing, full ROM, joint swelling Musculoskeletal exam: ABSENT: ambulatory, deformity, dislocation, full ROM Neurological exam: ABSENT: awake, oriented to person, oriented to place Skin exam: PRESENT: dry, warm Results Laboratory Results: 03/01/18 03/01/18 03/02/18 04:13 04:13 04:05 Creatine Kinase 24 L CK-MB (CK-2) 0.92 Troponin I 0.025 NT-Pro-B Natriuret Pep 47900 H 03/04/18 03/05/18 03/07/18 11:30 06:31 08:37 Creatine Kinase CK-MB (CK-2) Troponin I NT-Pro-B Natriuret Pep 6020 H 5440 H 3860 H 03/09/18 09:13 Creatine Kinase CK-MB (CK-2) Troponin I NT-Pro-B Natriuret Pep 4620 H Impressions: KUB X-Ray 02/28/18 00:00 IMPRESSION: DISTENDED STOMACH. PROMINENT STOOL IN THE COLON, POSSIBLE CONSTIPATION. Assessment & Plan - Diagnosis (1) Cardiopulmonary arrest with successful resuscitation Is this a current diagnosis for this admission?: Yes (3) Acute on chronic respiratory failure with hypoxia and hypercapnia Is this a current diagnosis for this admission?: Yes (4) COPD (chronic obstructive pulmonary disease) Qualifiers: COPD type: emphysema Emphysema type: unspecified Qualified Code(s): J43.9 - Emphysema, unspecified Is this a current diagnosis for this admission?: Yes (5) Obesity (BMI 30.0-34.9) Is this a current diagnosis for this admission?: Yes (6) PVD (peripheral vascular disease) Is this a current diagnosis for this admission?: Yes (7) Aspiration into respiratory tract Is this a current diagnosis for this admission?: Yes Plan: witnessed - Time Total Critical Time (Minutes): 60
[2018-03-17 10:49] LABS: THYROID STIMULATING HORMONE 7.34 uIU/mL (0.47-4.68)
[2018-03-17 10:52] LABS: ABSOLUTE LYMPHOCYTES# (MANUAL) 2.4 10^3/uL (0.5-4.7); ABSOLUTE MONOCYTES # (MANUAL) 1.3 10^3/uL (0.1-1.4); ABSOLUTE NEUTROPHILS# (MANUAL) 6.1 10^3/uL (1.7-8.2); BAND NEUTROPHILS % (MANUAL) 3 % (3-5); BASOPHILS % (MANUAL) 0 % (0-2); EOSINOPHILS % (MANUAL) 2 % (0-6); LYMPHOCYTES % (MANUAL) 23 % (13-45); METAMYELOCYTES % (MANUAL) 2 % (0); MONOCYTES % (MANUAL) 13 % (3-13); NUCLEATED RED BLOOD CELLS 1 /100 WBC (0); SEGMENTED NEUTROPHILS % (MAN) 55 % (42-78); TOTAL CELLS COUNTED 100
[2018-03-17 10:53] LABS: MYELOCYTES % (MANUAL) 1 % (0)
[2018-03-17 10:56] LABS: ANISOCYTOSIS 2+; HYPOCHROMASIA 1+; OVALOCYTES SLIGHT; PLATELET COMMENT DECREASED; PLATELET LARGE PRESENT; POIKILOCYTOSIS SLIGHT; TEAR DROP CELLS SLIGHT; TOXIC GRANULATION SLIGHT
[2018-03-17] MEDS ORDERED: LEVALBUTEROL HCL NEB 0.63 MG/3 ML AMPUL NEB PRN (11:07)
[2018-03-17] MEDS ORDERED: DEXTROSE 5%-WATER 250 ML with PHENYLEPHRINE HCL 40 MG IV PRN ×2 (11:31)
[2018-03-17] MEDS ORDERED: MAGNESIUM SULFATE/D5W 1 GM/100 ML RTUPB IV ONE (11:38)
[2018-03-17] MEDS ORDERED: POTASSI CL 20 MEQ/50 ML RIDER 20 MEQ/50 ML RTUPB IV ONE (11:42)
[2018-03-17] MEDS ORDERED: NOREPINEPHRINE BITARTRATE INJ/PF 4 MG/4 ML SDV IV ONE (11:48)
[2018-03-17 11:51] LABS: ABSOLUTE EOSINOPHILS # (AUTO) 0.1 10^3/uL (0.0-0.6); ABSOLUTE LYMPHOCYTES (AUTO) 2.4 10^3/uL (0.5-4.7); ABSOLUTE MONOCYTES (AUTO) 1.6 10^3/uL (0.1-1.4); ABSOLUTE NEUT (AUTO) 10.7 10^3/uL (1.7-8.2); BASOPHILS % (AUTO) 0.3 % (0-2); EOSINOPHILS % (AUTO) 0.4 % (0-6); HEMATOCRIT 33.5 % (37.9-51.0); HEMOGLOBIN 10.5 g/dL (13.5-17.0); LYMPHOCYTES % (AUTO) 16.3 % (13-45); MEAN CORPUSCULAR HEMOGLOBIN 28.7 pg (27.0-33.4); MEAN CORPUSCULAR HGB CONC 31.5 g/dL (32.0-36.0); MEAN CORPUSCULAR VOLUME 91 fl (80-97); MONOCYTES % (AUTO) 10.6 % (3-13); PLATELET COUNT 111 10^3/uL (150-450); RED BLOOD COUNT 3.68 10^6/uL (4.35-5.55); RED CELL DISTRIBUTION WIDTH 16.9 % (11.5-14.0); SEGMENTED NEUTROPHILS % (AUTO) 72.4 % (42-78); TOTAL CELLS COUNTED % (AUTO) 100 %; WHITE BLOOD COUNT 14.8 10^3/uL (4.0-10.5)
[2018-03-17 12:11] LABS: ALANINE AMINOTRANSFERASE 42 U/L (21-72); ALBUMIN 2.5 g/dL (3.5-5.0); ALKALINE PHOSPHATASE 94 U/L (38-126); ANION GAP 10 (5-19); ASPARTATE AMINO TRANSFERASE 88 U/L (17-59); BILIRUBIN,DIRECT 0.4 mg/dL (0.0-0.4); BILIRUBIN,TOTAL 0.5 mg/dL (0.2-1.3); BLOOD UREA NITROGEN 47 mg/dL (7-20); CALCIUM 8.2 mg/dL (8.4-10.2); CARBON DIOXIDE 32 mmol/L (22-30); CHLORIDE 101 mmol/L (98-107); CREATINE KINASE 96 U/L (55-170); GLUCOSE 231 mg/dL (75-110); POTASSIUM 3.4 mmol/L (3.6-5.0); SODIUM 143.4 mmol/L (137-145); TOTAL PROTEIN 5.2 g/dL (6.3-8.2); TRIGLYCERIDES 410 mg/dL (<150)
--- NOTE | 2018-03-17 12:27 | EKG REPORT ---
SEVERITY:- ABNORMAL ECG - ATRIAL-VENTRICULAR DUAL-PACED RHYTHM : Confirmed by: Rosalio Lawrence MD 17-Mar-2018 12:27:13
[2018-03-17 12:29] LABS: CREATINE KINASE MB 5.28 ng/mL (<4.55)
[2018-03-17 12:30] LABS: TROPONIN I 1.13 ng/mL
--- NOTE | 2018-03-17 12:35 | RADIOLOGY REPORT (SQ) ---
EXAM DESCRIPTION: CHEST SINGLE VIEW COMPLETED DATE/TIME: 03/17/2018 10:56 am REASON FOR STUDY: Central line, ETT, OGTube placement COMPARISON: 03/17/2018 EXAM PARAMETERS: NUMBER OF VIEWS: One view. TECHNIQUE: Single frontal radiographic view of the chest acquired. RADIATION DOSE: NA LIMITATIONS: None. FINDINGS: LUNGS AND PLEURA: Pulmonary edema. MEDIASTINUM AND HILAR STRUCTURES: No masses. Contour normal. HEART AND VASCULAR STRUCTURES: Cardiomegaly. BONES: No acute findings. HARDWARE: NG tube extends to the stomach. Pacemaker/defibrillator. An endotracheal tube is poorly s een. Right-sided catheter has its tip in the superior vena cava. Sternotomy wires. OTHER: No other significant finding. IMPRESSION: NG tube placement. Cardiomegaly with pulmonary edema. TECHNICAL DOCUMENTATION: JOB ID: [id number] [employer]- All Rights Reserved Reading location - IP/workstation name: [email or web address]
--- NOTE | 2018-03-17 12:35 | RADIOLOGY REPORT (SQ) ---
EXAM DESCRIPTION: CHEST SINGLE VIEW COMPLETED DATE/TIME: 03/17/2018 9:31 am REASON FOR STUDY: respiratory failure/ ET tube Placement COMPARISON: 02/27/2018 EXAM PARAMETERS: NUMBER OF VIEWS: One view. TECHNIQUE: Single frontal radiographic view of the chest acquired. RADIATION DOSE: NA LIMITATIONS: None. FINDINGS: LUNGS AND PLEURA: Diffuse increased interstitial densities with patchy airspace density in the upper lobes greater on the right than left. Differential includes pulmonary edema and pneumonia . No effusion or pneumothorax. MEDIASTINUM AND HILAR STRUCTURES: No masses. Contour normal. HEART AND VASCULAR STRUCTURES: Mild cardiomegaly. BONES: No acute findings. HARDWARE: Endotracheal tube with its tip 5 cm above the caleb. NG tube with its tip in the upper ab domen not included on the images. Status post CABG. Left subclavian pacer unchanged in position. O ther overlying tubes and wires. OTHER: No other significant finding. IMPRESSION: 1. Endotracheal tube and NG tube appear to be in good position. 2. Abnormal interstitial and airspace density with differential including pulmonary edema and pneumo celia. TECHNICAL DOCUMENTATION: JOB ID: [id number] [employer]- All Rights Reserved Reading location - IP/workstation name: [email or web address]
[2018-03-17 12:41] VITALS: BP 92/64
[2018-03-17] MEDS ORDERED: MAGNESIUM SULFATE PF/INJ 40 MEQ/10 ML SDV ONE (14:19)
[2018-03-17] MEDS ORDERED: EPINEPHRINE INJ 1 MG/10 ML DISP.SYRIN ONE ×2 (14:19→16:26)
[2018-03-17] MEDS ORDERED: AMIODARONE HCL INJ 150 MG/3 ML VIAL IV ONE (14:19)
--- NOTE | 2018-03-17 14:34 | Death Summary ---
Summary Date : 03/17/18 Time of :: 11:54 Autopsy: No Resuscitation Status: Full Code - Final Diagnosis (1) Ventricular fibrillation Is this a current diagnosis for this admission?: Yes (2) Proteus septicemia Is this a current diagnosis for this admission?: Yes (3) Myoclonus Is this a current diagnosis for this admission?: Yes (4) Acute respiratory failure with hypoxia Is this a current diagnosis for this admission?: Yes (5) History of left below knee amputation Is this a current diagnosis for this admission?: Yes (6) Sepsis Is this a current diagnosis for this admission?: Yes (7) Acute and chronic respiratory failure Is this a current diagnosis for this admission?: Yes (8) Anemia in chronic kidney disease Is this a current diagnosis for this admission?: Yes (9) BPH (benign prostatic hyperplasia) Is this a current diagnosis for this admission?: Yes (10) COPD (chronic obstructive pulmonary disease) Is this a current diagnosis for this admission?: Yes (11) Chronic anticoagulation Is this a current diagnosis for this admission?: Yes (12) Chronic atrial fibrillation Is this a current diagnosis for this admission?: Yes (13) Constipation Is this a current diagnosis for this admission?: Yes (14) Coronary artery disease Is this a current diagnosis for this admission?: Yes (15) DM type 2 (diabetes mellitus, type 2) Is this a current diagnosis for this admission?: Yes (16) Full code status Is this a current diagnosis for this admission?: Yes (17) History of implantable cardioverter-defibrillator (ICD) placement Is this a current diagnosis for this admission?: Yes (18) Hyperlipidemia Is this a current diagnosis for this admission?: Yes (19) Hypertension Is this a current diagnosis for this admission?: Yes (20) PVD (peripheral vascular disease) Is this a current diagnosis for this admission?: Yes (21) C. difficile diarrhea Is this a current diagnosis for this admission?: Yes (22) Chronic diastolic heart failure Is this a current diagnosis for this admission?: Yes Hospital Course:: 77 yr old male with Systolic CHF EF 30-35%, AICD CKD stage IV PVD Insulin dependent Diabetes CAD BPH Gout Oxygen dependent COPd A fib on anticoagulation Chronic pain, opiate dependent L BKA He presented to the hospital on 02/28/18 complaining of fatigue and involuntary twitching suggestive of myoclonus. EMS discovered sats of 50%- brought in on BiPAP, found to have fever and UTI. Urine and blood cultures positive for Proteus. He developed severe diarrhea on 03/05/18. Stool was positive for C diff and he was started on Metronidazole. I doubt this is an actual C diff infection since he was on 4 different laxatives on the day it was checked. No further diarrhea immediately after laxatives were stopped. Respiratory status is at baseline- uses 3L NC O2 at home. He received IV Invanz through a peripheral IV line to complete his 14 day course for bacteremia because he could not get a PICC line due to CKD. The patient refused to get a R IJ PICC line by Dr. David Morel. There were no appropriate PO option available. A Code Blue was called at 9:30 am and the patient was shocked 4 times for V fib and received 4 doses of Epinephrine and one dose of IV Magnesium. Amiodarone IV was given and drip started. He was intubated. After 30 minutes of CPR, he had a peripheral pulse and was transfered to the ICU. He was started on mechanical ventilation. Family was notified. Blood pressure was running low despite IV fluids, he was started on a phenylephrine drip per Dr. Mclean's recommendations. AICD also fired multiple times during the code. At approximately 11:30 am the patient again went into ventricular fibrillation again and CPR was restarted. At 11: 54 am CPR was stopeed and the patient was pronounced . Family was present.
[2018-03-17] MEDS ORDERED: SODIUM BICARBONATE 8.4% INJ 50 MEQ/50 ML DISP.SYRIN ONE (16:26)
[2018-03-17] MEDS ORDERED: LIDOCAINE 2% INJ-PF (100 MG/5 ML) SYRINGE ONE (16:26)
[2018-03-21 08:59] LABS: PATH REVIEW PATHOLOGIST REVIEWED
== END 2018-03-17 11:54 | DRG 871 ==
LOC: ER 19:07 → EH 22:44 → ICU 02-28 01:29 → 5 03-05 06:52 → ICU 03-17 08:53
PROVIDERS: ADMIT Internal Medicine; ATTEND Internal Medicine
PROC: 5A09557 Assistance with Respiratory Ventilation, Greater than 96 Consecutive Hours, Continuous Positive Airway Pressure (ICD-10-PCS; 2018-02-27)
PROC: 3E0F73Z Introduction of Anti-inflammatory into Respiratory Tract, Via Natural or Artificial Opening (ICD-10-PCS; 2018-02-28)
PROC: 5A1935Z Respiratory Ventilation, Less than 24 Consecutive Hours (ICD-10-PCS; principal; 2018-03-17)
PROC: 02HV33Z Insertion of Infusion Device into Superior Vena Cava, Percutaneous Approach (ICD-10-PCS; 2018-03-17)
PROC: B548ZZA Ultrasonography of Superior Vena Cava, Guidance (ICD-10-PCS; 2018-03-17)
PROC: 5A2204Z Restoration of Cardiac Rhythm, Single (ICD-10-PCS; 2018-03-17)
PROC: 0BH17EZ Insertion of Endotracheal Airway into Trachea, Via Natural or Artificial Opening (ICD-10-PCS; 2018-03-17)
DX: A41.89 Other specified sepsis (principal); J96.21 Acute and chronic respiratory failure with hypoxia; J96.22 Acute and chronic respiratory failure with hypercapnia; N39.0 Urinary tract infection, site not specified; I13.0 Hypertensive heart and chronic kidney disease with heart failure and stage 1 through stage 4 chronic kidney disease, or unspecified chronic kidney disease; N18.4 Chronic kidney disease, stage 4 (severe); I50.32 Chronic diastolic (congestive) heart failure; A04.72 Enterocolitis due to Clostridium difficile, not specified as recurrent; F11.20 Opioid dependence, uncomplicated; N17.9 Acute kidney failure, unspecified; I49.01 Ventricular fibrillation; G25.3 Myoclonus; D63.1 Anemia in chronic kidney disease; N40.0 Benign prostatic hyperplasia without lower urinary tract symptoms; J43.9 Emphysema, unspecified; I48.2 Chronic atrial fibrillation; K59.04 Chronic idiopathic constipation; I25.10 Atherosclerotic heart disease of native coronary artery without angina pectoris; E11.22 Type 2 diabetes mellitus with diabetic chronic kidney disease; E11.51 Type 2 diabetes mellitus with diabetic peripheral angiopathy without gangrene; E78.00 Pure hypercholesterolemia, unspecified; G89.29 Other chronic pain; M10.9 Gout, unspecified; M54.9 Dorsalgia, unspecified; G47.30 Sleep apnea, unspecified; E66.9 Obesity, unspecified; M19.90 Unspecified osteoarthritis, unspecified site; E87.5 Hyperkalemia; D69.6 Thrombocytopenia, unspecified; R23.8 Other skin changes; Z68.30 Body mass index [BMI] 30.0-30.9, adult; Z53.29 Procedure and treatment not carried out because of patient's decision for other reasons; I25.2 Old myocardial infarction; Z89.512 Acquired absence of left leg below knee; Z86.711 Personal history of pulmonary embolism; Z95.810 Presence of automatic (implantable) cardiac defibrillator; Z79.01 Long term (current) use of anticoagulants; Z79.4 Long term (current) use of insulin; Z79.899 Other long term (current) drug therapy; Z99.81 Dependence on supplemental oxygen; Z91.14 Patient's other noncompliance with medication regimen; Z78.1 Physical restraint status; Z88.3 Allergy status to other anti-infective agents; Z88.0 Allergy status to penicillin; Z88.8 Allergy status to other drugs, medicaments and biological substances; Z83.6 Family history of other diseases of the respiratory system; Z82.49 Family history of ischemic heart disease and other diseases of the circulatory system
CPT/HCPCS: 31500; 36415; 36556; 71045; 74018; 80048; 80053; 80069; 81001; 82140; 82550; 82553; 82803; 82962; 83605; 83735; 83880; 84100; 84439; 84443; 84478; 84481; 84484; 85025; 85610; 85730; 87040; 87077; 87086; 87088; 87186; 87493; 92950; 93005; 93010; 94002; 94660; 94667; 94668; 96365; 96367; 99291; C1751; G8978-GP; G8979-GP; G8987-GO; G8988-GO; J0171; J0282; J0610; J0690; J0692; J0744; J1335; J1650; J1815; J1953; J2001; J2020; J2270; J2370; J2550; J2920; J2930; J3475; J3480; J3490; J7040; J7060; J7620; S0028; S0119